=== PATIENT | female | born 1960 | race African-American/Black ===

== ENCOUNTER 2018-01-08 17:31 | Inpatient (IN) | payer OTHER ==
[2018-01-08] MEDS ORDERED: ALBUTEROL SO4 2.5/IPRATROPIUM 0.5 INH SOL 3 ML VIAL.NEB. NEB ONE ×2 (18:18→18:45)
--- NOTE | 2018-01-08 18:20 | PDOC ---
History of Present Illness <Rebecca Duarte - Last Filed: 01/08/18 19:55> - General History Source: Patient Exam Limitations: No Limitations - History of Present Illness Initial Comments: 01/08/18 18:49 The patient is a 57 year old female with past medical history of HIV, hypertension, asthma, COPD (on O2 at home), laryngeal cancer s/p tracheostomy who arrives to the ED via ambulance from home for difficulty breathing and hypoxia since this morning. She states that she is supposed to be using her trach tube at home but states she takes it in and out daily. She denies any associated chest pain, palpitations, diaphoresis. Denies any cough, fevers, or chills. Allergies: Penicillins, levofloxacin, latex Surgeries: Thyroidectomy, laparoscopy PCP: [facility] <Alma Rosa Augustine - Last Filed: 01/08/18 20:26> - General Chief Complaint: Shortness of Breath Stated Complaint: SHORTNESS OF BREATH Time Seen by Provider: 01/08/18 17:48 Past History - Past Medical History Anemia: No Asthma: No Cancer: Yes (throat w/tracheostomy) Cardiac Disorders: No CVA: No COPD: Yes CHF: No DVT: No Dementia: No Diabetes: No GI Disorders: No Disorders: No HTN: Yes Hypercholesterolemia: No Liver Disease: No Seizures: No Thyroid Disease: No - Surgical History Abdominal Surgery: No Appendectomy: No Cardiac Surgery: No Cholecystectomy: No Lung Surgery: No Neurologic Surgery: No Orthopedic Surgery: No (Larygotomy) - Suicide/Smoking/Psychosocial Hx Smoking Status: No Smoking History: Former smoker Have you smoked in the past 12 months: No Number of Cigarettes Smoked Daily: 0 If you are a former smoker, when did you quit?: 2006 Cigars Per Day: 0 Information on smoking cessation initiated: No Hx Alcohol Use: No Drug/Substance Use Hx: No Substance Use Type: None Hx Substance Use Treatment: No (stable on mmtp) <Rebecca Duarte - Last Filed: 01/08/18 19:55> <Alma Rosa Augustine - Last Filed: 01/08/18 20:26> - Past Medical History Allergies/Adverse Reactions: Allergies Allergy/AdvReac Type Severity Reaction Status Date / Time latex Allergy Verified 01/08/18 17:40 levofloxacin [From Levaquin] Allergy Verified 01/08/18 17:40 Penicillins Allergy Verified 01/08/18 17:40 Home Medications: Ambulatory Orders Abacavir/Dolutegravir/Lamivudi [Triumeq Tablet] 1 each PO DAILY 01/08/18 Alprazolam [Xanax] 0.25 mg PO DAILY 01/08/18 Amlodipine Besylate [Norvasc -] 5 mg PO DAILY 01/08/18 Metoprolol Succinate [Toprol Xl] 25 mg PO DAILY 01/08/18 Mirtazapine [Remeron -] 30 mg PO DAILY 01/08/18 Quetiapine Fumarate [Seroquel -] 25 mg PO HS 01/08/18 Zolpidem Tartrate [Ambien] 5 mg PO HS 01/08/18 Respiratory Specific PMHX - Complaint Specific PMHX Pneumonia: No TB (Tuberculosis): No <Rebecca Duarte - Last Filed: 01/08/18 19:55> Review of Systems - Review of Systems Able to Perform ROS?: Yes Comments:: 01/08/18 18:49 CONSTITUTIONAL: Absent: fever, chills, diaphoresis, generalized weakness, malaise, loss of appetite HEENT: Absent: rhinorrhea, nasal congestion, throat pain, throat swelling, difficulty swallowing, mouth swelling, ear pain, eye pain, visual Changes CARDIOVASCULAR: Absent: chest pain, syncope, palpitations, irregular heart rate, lightheadedness , peripheral edema RESPIRATORY: (+) shortness of breath Absent: cough, dyspnea with exertion, orthopnea, wheezing, stridor, hemoptysis GASTROINTESTINAL: Absent: abdominal pain, abdominal distension, nausea, vomiting, diarrhea, constipation, melena, hematochezia GENITOURINARY: Absent: dysuria, frequency, urgency, hesitancy, hematuria, flank pain, genital pain MUSCULOSKELETAL: Absent: myalgia, arthralgia, joint swelling SKIN: Absent: rash, itching, pallor HEMATOLOGIC/IMMUNOLOGIC: Absent: easy bleeding, easy bruising, lymphadenopathy, frequent infections ENDOCRINE: Absent: unexplained weight gain, unexplained weight loss, heat intolerance, cold intolerance NEUROLOGIC: Absent: headache, focal weakness or paresthesias, dizziness, unsteady gait, seizure, mental status changes, bladder or bowel incontinence PSYCHIATRIC: Absent: anxiety, depression, suicidal or homicidal ideation, hallucinations. All Other Systems: Reviewed and Negative <Alma Rosa Augustine - Last Filed: 01/08/18 20:26> *Physical Exam - Vital Signs Last Vital Signs Temp Pulse Resp BP Pulse Ox 100.3 F H 99 H 24 149/92 60 L 01/08/18 17:35 01/08/18 17:35 01/08/18 17:35 01/08/18 17:35 01/08/18 17:35 <Rebecca Duarte - Last Filed: 01/08/18 19:55> - Vital Signs Last Vital Signs Temp Pulse Resp BP Pulse Ox 100.3 F H 99 H 24 149/92 60 L 01/08/18 17:35 01/08/18 17:35 01/08/18 17:35 01/08/18 17:35 01/08/18 17:35 - Physical Exam Comments: 01/08/18 18:50 GENERAL: Well developed, well nourished. Awake and alert. No acute distress. Mouths her words and whispers HEENT: Normocephalic, atraumatic. PERRLA, EOMI. No conjunctival pallor. Sclera are non- icteric. Moist mucous membranes. Oropharynx is clear. NECK: Open tracheostomy without tube in place. Supple. Full ROM. No JVD. Carotid pulses 2+ and symmetric, without bruits. No thyromegaly. No lymphadenopathy. CARDIOVASCULAR: Regular rate and rhythm. No murmurs, rubs, or gallops. Distal pulses are 2+ and symmetric. PULMONARY: No evidence of respiratory distress. Bibasilar crackles and scant wheezing ABDOMINAL: Soft. Non-tender. Protuberant belly. No rebound or guarding. No organomegaly. Normoactive bowel sounds. MUSCULOSKELETAL Normal range of motion at all joints. No bony deformities or tenderness. No CVA tenderness. EXTREMITIES: Chronic bilateral pitting edema left greater than right. No cyanosis. No clubbing. No edema. No calf tenderness. SKIN: Warm and dry. Normal capillary refill. No rashes. No jaundice. NEUROLOGICAL: Alert, awake, appropriate. Cranial nerves 2-12 intact. No deficits to light touch and temperature in face, upper extremities and lower extremities. No motor deficits in the in face, upper extremities and lower extremities. Normoreflexic in the upper and lower extremities. Normal speech. Toes are down-going bilaterally. Gait is normal without ataxia. PSYCHIATRIC: Cooperative. Good eye contact. Appropriate mood and affect. <Alma Rosa Augustine - Last Filed: 01/08/18 20:26> ED Treatment Course - LABORATORY CBC & Chemistry Diagram: 01/08/18 18:20 01/08/18 18:20 - RADIOLOGY Radiology Studies Ordered: Category Date Time Status CHEST X-RAY PORTABLE* [RAD] Stat Radiology 01/08/18 18:19 Ordered <Rebecca Duarte - Last Filed: 01/08/18 19:55> - LABORATORY CBC & Chemistry Diagram: 01/08/18 18:20 01/08/18 18:20 <Alma Rosa Augustine - Last Filed: 01/08/18 20:26> Medical Decision Making - Medical Decision Making 01/08/18 19:52 [address] to Dr. Samuels, and call was connected immediately and case discussed. 01/08/18 19:58 Phone call placed to Dr. Negro, awaiting call back. 01/08/18 20:26 Phone call placed to Dr. Mathur, call was returned promptly and case was discussed. <Alma Rosa Augustine - Last Filed: 01/08/18 20:26> *DC/Admit/Observation/Transfer - Discharge Dispostion Decision to Admit order: Yes <Rebecca Duarte - Last Filed: 01/08/18 19:55> - Attestations Scribe Attestion: 01/08/18 18:51 Documentation prepared by Alma Rosa Augustine, acting as medical front desk coordinator for Rebecca Duarte MD. <Alma Rosa Augustine - Last Filed: 01/08/18 20:26> Diagnosis at time of Disposition: HIV (human immunodeficiency virus infection), Lower leg edema, COPD exacerbation
[2018-01-08 18:53] LABS: VENOUS PH 7.27 (7.32-7.42); VENOUS PO2 26.7 mmHg (28-48)
[2018-01-08 18:59] LABS: BASO % 0.5 % (0-2.0); EOS % 0.1 % (0-4.5); HEMOGLOBIN 12.5 GM/dL (10.7-15.3); LYMPH % 11.1 % (8-40); MCH 30.5 pg (25.7-33.7); MCHC 31.4 g/dl (32.0-36.0); MEAN CELL VOLUME 97.3 fl (80-96); MEAN PLT VOLUME 8.2 fl (7.5-11.1); MONO % 4.7 % (3.8-10.2); NEUT % 83.6 % (42.8-82.8); PLATELET COUNT 233 K/MM3 (134-434); RBC 4.11 M/mm3 (3.60-5.2); RDW 15.9 % (11.6-15.6); WHITE BLOOD COUNT 9.7 K/mm3 (4.0-10.0)
[2018-01-08 19:10] LABS: INR 1.08 (0.82-1.09); PROTHROMBIN TIME (PATIENT) 12.2 SEC (9.7-13.0)
[2018-01-08 19:13] LABS: ACTIVATED PTT 27.6 SECONDS (26.9-34.4)
[2018-01-08 19:20] LABS: ALBUMIN 3.4 g/dl (3.4-5.0); ALK PHOS 118 U/L (45-117); ANION GAP 4 (8-16); BILIRUBIN,TOTAL 0.3 mg/dL (0.2-1.0); BLOOD UREA NITROGEN 8 mg/dL (7-18); CALCIUM 8.8 mg/dL (8.5-10.1); CHLORIDE 98 mmol/L (98-107); CO2 37 mmol/L (21-32); CREATININE 1.1 mg/dL (0.55-1.02); GLUCOSE,RANDOM 91 mg/dL (74-106); POTASSIUM 4.8 mmol/L (3.5-5.1); SGOT/AST 17 U/L (15-37); SGPT/ALT 11 U/L (12-78); SODIUM 139 mmol/L (136-145); TOT PROT 8.2 g/dl (6.4-8.2)
[2018-01-08] MEDS ORDERED: DEXAMETHASONE SOD PHOSPHATE 20 MG/5 ML VIAL IVPB ONE (19:32)
[2018-01-08 19:34] LABS: ARTERIAL BLD GAS O2 SATURATION 94.1 % (90-98.9); ARTERIAL BLOOD GAS BASE EXCESS 6.6 meq/l (-2-2); ARTERIAL BLOOD GAS PCO2 69.2 mmHg (35-45); ARTERIAL BLOOD GAS PO2 74.2 mmHg (80-100)
[2018-01-08 19:36] LABS: ALLENS TEST POSITIVE
[2018-01-08 19:37] LABS: ARTERIAL BLOOD GAS pH 7.32 (7.35-7.45)
[2018-01-08] MEDS ORDERED: DEXAMETHASONE SOD PHOSPHATE 10 MG/1 ML VIAL ONE (19:43)
--- NOTE | 2018-01-08 21:13 | HP ---
Admitting History and Physical - Primary Care Physician PCP: Christophe Samuels - Admission History of Present Illness: 57 year old female with past medical history of HIV, hypertension, asthma, COPD (on O2 at home), laryngeal cancer s/p tracheostomy who arrives to the ED via ambulance from home for difficulty breathing and hypoxia since this morning. She states that she is supposed to be using her trach tube at home but states she takes it in and out daily. She denies any associated chest pain, palpitations, diaphoresis. Denies any cough, fevers, or chills. Allergies: Penicillins, levofloxacin, latex Surgeries: Thyroidectomy, laparoscopy PCP: [facility] - Past Medical History Cardiovascular: Yes: HTN Pulmonary: Yes: Asthma, COPD Infectious Disease: Yes: HIV - Smoking History Smoking history: Former smoker Have you smoked in the past 12 months: No Aproximately how many cigarettes per day: 0 If you are a former smoker, when did you quit?: 2005 - Alcohol/Substance Use Hx Alcohol Use: No Home Medications - Allergies Allergies/Adverse Reactions: Allergies Allergy/AdvReac Type Severity Reaction Status Date / Time latex Allergy Verified 01/08/18 17:40 levofloxacin [From Levaquin] Allergy Verified 01/08/18 17:40 Penicillins Allergy Verified 01/08/18 17:40 - Home Medications Home Medications: Ambulatory Orders Abacavir/Dolutegravir/Lamivudi [Triumeq Tablet] 1 each PO DAILY 01/08/18 Alprazolam [Xanax] 0.25 mg PO DAILY 01/08/18 Amlodipine Besylate [Norvasc -] 5 mg PO DAILY 01/08/18 Metoprolol Succinate [Toprol Xl] 25 mg PO DAILY 01/08/18 Mirtazapine [Remeron -] 30 mg PO DAILY 01/08/18 Quetiapine Fumarate [Seroquel -] 25 mg PO HS 01/08/18 Zolpidem Tartrate [Ambien] 5 mg PO HS 01/08/18 Levothyroxine [Synthroid -] 112 mcg PO DAILY 01/09/18 Methadone [Dolophine -] 80 mg PO DAILY 01/09/18 Furosemide [Lasix] 20 mg PO DAILY #30 tablet 01/10/18 Family Disease History - Family Disease History Family Disease History: CA: Sister (breast ca), Respiratory: Daughter (asthma - d.), Other: Mother (Alzheimers) Physical Examination Vital Signs: Vital Signs Temperature 100.3 F H 01/08/18 17:35 Pulse Rate 99 H 01/08/18 17:35 Respiratory Rate 24 01/08/18 17:35 Blood Pressure 149/92 01/08/18 17:35 O2 Sat by Pulse Oximetry (%) 97 01/08/18 19:01 HENT: Yes: WNL Neck: Yes: Other (trach) Cardiovascular: Yes: Regular Rate and Rhythm Respiratory: Yes: Rhonchi Gastrointestinal: Yes: Normal Bowel Sounds Extremities: Yes: WNL Neurological: Yes: Alert, Oriented Labs: CBC, BMP 01/08/18 18:20 01/08/18 18:20 Problem List - Problems (1) COPD exacerbation Assessment/Plan: on duo nebs oxygen continue home meds trach collar in place Code(s): J44.1 - CHRONIC OBSTRUCTIVE PULMONARY DISEASE W (ACUTE) EXACERBATION (2) HIV (human immunodeficiency virus infection) Assessment/Plan: continue home meds Code(s): Z21 - ASYMPTOMATIC HUMAN IMMUNODEFICIENCY VIRUS INFECTION STATUS (3) Hypertension Assessment/Plan: continue homemeds monitor bp Code(s): I10 - ESSENTIAL (PRIMARY) HYPERTENSION Qualifiers: Hypertension type: essential hypertension Qualified Code(s): I10 - Essential (primary) hypertension (4) Hypothyroidism Assessment/Plan: continue home meds Code(s): E03.9 - HYPOTHYROIDISM, UNSPECIFIED Qualifiers: Hypothyroidism type: unspecified Qualified Code(s): E03.9 - Hypothyroidism , unspecified Assessment/Plan Laboratory Results - last 24 hr 01/08/18 01/08/18 01/08/18 18:19 18:20 18:20 WBC 9.7 D RBC 4.11 Hgb 12.5 Hct 40.0 MCV 97.3 H MCH 30.5 MCHC 31.4 L RDW 15.9 H Plt Count 233 MPV 8.2 D Neutrophils % 83.6 H D Lymphocytes % 11.1 D Monocytes % 4.7 Eosinophils % 0.1 D Basophils % 0.5 Nucleated RBC % 0 PT with INR INR PTT (Actin FS) Puncture Site Right brachial ABG pH 7.32 L ABG pCO2 at Pt Temp 69.2 H* D ABG pO2 at Pt Temp 74.2 L ABG HCO3 34.4 H ABG O2 Sat (Measured) 94.1 ABG O2 Content 15.7 ABG Base Excess 6.6 H Kenrick Test Positive VBG pH POC VBG pCO2 POC VBG pO2 Mixed VBG HCO3 Methemoglobin 1.1 O2 Delivery Device Nebulizer tx Oxygen Flow Rate 6 lpm PEEP 0.0 Sodium 139 Potassium 4.8 Chloride 98 Carbon Dioxide 37 H Anion Gap 4 L BUN 8 Creatinine 1.1 H Creat Clearance w eGFR 51.38 Random Glucose 91 Calcium 8.8 Total Bilirubin 0.3 D AST 17 ALT 11 L Alkaline Phosphatase 118 H Troponin I Total Protein 8.2 Albumin 3.4 01/08/18 01/08/18 01/08/18 18:20 18:20 18:20 WBC RBC Hgb Hct MCV MCH MCHC RDW Plt Count MPV Neutrophils % Lymphocytes % Monocytes % Eosinophils % Basophils % Nucleated RBC % PT with INR 12.20 INR 1.08 PTT (Actin FS) 27.6 Puncture Site ABG pH ABG pCO2 at Pt Temp ABG pO2 at Pt Temp ABG HCO3 ABG O2 Sat (Measured) ABG O2 Content ABG Base Excess Kenrick Test VBG pH 7.27 L POC VBG pCO2 83.0 H* POC VBG pO2 26.7 L Mixed VBG HCO3 36.7 H Methemoglobin O2 Delivery Device Oxygen Flow Rate PEEP Sodium Potassium Chloride Carbon Dioxide Anion Gap BUN Creatinine Creat Clearance w eGFR Random Glucose Calcium Total Bilirubin AST ALT Alkaline Phosphatase Troponin I < 0.02 Total Protein Albumin Active Medications Generic Name Dose Route Start Last Admin Trade Name Freq PRN Reason Stop Dose Admin Albuterol Sulfate 1 amp 01/09/18 14:27 01/10/18 20:27 Ventolin 0.083% Nebulizer Soln - NEB 1 amp Q4H PRN Administration SHORT OF BREATH/WHEEZING Alprazolam 0.25 mg 01/12/18 10:30 01/15/18 09:20 Xanax - PO 0.25 mg DAILY LOI Administration Levothyroxine Sodium 112 mcg 01/15/18 20:30 Synthroid - PO DAILY LOI Methadone HCl 80 mg 01/09/18 09:30 01/15/18 05:34 Dolophine - PO 80 mg DAILY@0600 LOI Administration Metoprolol Succinate 25 mg 01/09/18 10:00 01/15/18 09:20 Toprol Xl - PO Not Given DAILY LOI Mirtazapine 30 mg 01/09/18 22:00 01/14/18 21:42 Remeron - PO 30 mg HS LOI Administration Abacavir 600mg/ 1 each 01/09/18 10:00 01/15/18 09:20 Dolutegravir 50mg/ PO 1 each Lamivudine 300mg [ DAILY LOI Administration Triumeq Tablet] Quetiapine Fumarate 25 mg 01/08/18 22:00 01/14/18 21:42 Seroquel - PO 25 mg HS LOI Administration
[2018-01-08 21:48] LABS: URINE APPEARANCE CLEAR; URINE BILIRUBIN NEGATIVE (<2.0 mg/dL); URINE BLOOD NEGATIVE (NEGATIVE); URINE COLOR YELLOW; URINE GLUCOSE (UA) NEGATIVE (NEGATIVE); URINE KETONE NEGATIVE (NEGATIVE); URINE LEUK ESTERASE NEGATIVE (NEGATIVE); URINE NITRITE NEGATIVE (NEGATIVE); URINE PROTEIN NEGATIVE (NEGATIVE); URINE UROBILINOGEN NORMAL mg/dL (0.2-1.0)
[2018-01-08 22:27] LABS: ARTERIAL BLOOD GAS BASE EXCESS 7.6 meq/l (-2-2); ARTERIAL BLOOD GAS pH 7.34 (7.35-7.45)
[2018-01-08 22:29] LABS: ARTERIAL BLOOD GAS PO2 24.7 mmHg (80-100)
[2018-01-08 22:30] LABS: ARTERIAL BLD GAS O2 SATURATION 37.9 % (90-98.9)
[2018-01-08] MEDS ORDERED: QUEtiapine FUMARATE 25 MG TABLET (FP) ONE (22:43)
[2018-01-08] MEDS ORDERED: HEPARIN NA (PORCINE) 5,000 UNITS/ML 1ML VIAL ONE (22:43)
[2018-01-08] MEDS ORDERED: MIRTAZAPINE 15 MG TABLET (FP) ONE (22:43)
[2018-01-08] MEDS ORDERED: ZOLPIDEM TARTRATE 5 MG TABLET ONE (22:47)
[2018-01-08] MEDS: QUEtiapine FUMARATE 25 MG TABLET (FP) PO SCH (22:53)
[2018-01-08] MEDS: ZOLPIDEM TARTRATE 5 MG TABLET PO PRN (22:53)
[2018-01-08] MEDS: HEPARIN NA (PORCINE) 5,000 UNITS/ML 1ML VIAL SQ SCH (22:53)
[2018-01-08 23:58] LABS: ARTERIAL BLD GAS O2 SATURATION 84.5 % (90-98.9); ARTERIAL BLOOD GAS PO2 52.7 mmHg (80-100); ARTERIAL BLOOD GAS pH 7.34 (7.35-7.45)
[2018-01-08 23:59] LABS: ALLENS TEST POSITIVE; ARTERIAL BLOOD GAS PCO2 63.9 mmHg (35-45)
[2018-01-09] MEDS: amLODIPine BESYLATE 5 MG TABLET (FP) PO SCH (06:19)
[2018-01-09] MEDS: METHADONE HCL 40 MG DISPERSABLE TABLET PO SCH (09:37)
[2018-01-09] MEDS: ALPRAZolam 0.25 MG TABLET PO SCH (09:38)
[2018-01-09] MEDS: [UNRECOGNIZED DRUG - OTHER] PO SCH (09:38)
[2018-01-09] MEDS: HEPARIN NA (PORCINE) 5,000 UNITS/ML 1ML VIAL SQ SCH ×2 (09:38→21:28)
[2018-01-09] MEDS: metoPROLOL SUCCINATE 25 MG TAB.SR.24H (FP) PO SCH (09:38)
[2018-01-09] MEDS: ABACAVIR PO SCH (09:38)
--- NOTE | 2018-01-09 12:36 | CON.ID ---
Consult Consult Specialty:: infectious disesases Reason for Consultation:: sob,r/o pna - History of Present Illness Chief Complaint: sob,unable to breath History of Present Illness: 57 year old female with past medical history of HIV, hypertension, asthma, COPD (on O2 at home), laryngeal cancer s/p tracheostomy admitted because of difficulty breathing and hypoxia since yesterday morning. She states that she is supposed to be using her trach tube at home but states she takes it in and out daily. She denies any associated chest pain, palpitations, diaphoresis. Denies any cough, fevers, or chills. according the her patient suddenly started with difficulty in breathing and was not able to breathe at all she denies any cough production or fever or chills currently patient is feeling better still not completely well. - History Source History Provided By: Patient Limitations to Obtaining History: No Limitations - Past Medical History Cardio/Vascular: Yes: HTN Pulmonary: Yes: Asthma, COPD ...: No Infectious Disease: Yes: HIV - Alcohol/Substance Use Hx Alcohol Use: No - Smoking History Smoking history: Former smoker Have you smoked in the past 12 months: No Aproximately how many cigarettes per day: 0 If you are a former smoker, when did you quit?: 2005 Home Medications - Allergies Allergies/Adverse Reactions: Allergies Allergy/AdvReac Type Severity Reaction Status Date / Time latex Allergy Verified 01/08/18 17:40 levofloxacin [From Levaquin] Allergy Verified 01/08/18 17:40 Penicillins Allergy Verified 01/08/18 17:40 - Home Medications Home Medications: Ambulatory Orders Abacavir/Dolutegravir/Lamivudi [Triumeq Tablet] 1 each PO DAILY 01/08/18 Alprazolam [Xanax] 0.25 mg PO DAILY 01/08/18 Amlodipine Besylate [Norvasc -] 5 mg PO DAILY 01/08/18 Metoprolol Succinate [Toprol Xl] 25 mg PO DAILY 01/08/18 Mirtazapine [Remeron -] 30 mg PO DAILY 01/08/18 Quetiapine Fumarate [Seroquel -] 25 mg PO HS 01/08/18 Zolpidem Tartrate [Ambien] 5 mg PO HS 01/08/18 Levothyroxine [Synthroid -] 112 mcg PO DAILY 01/09/18 Methadone [Dolophine -] 80 mg PO DAILY 01/09/18 Family Disease History - Family Disease History Family Disease History: CA: Sister (breast ca), Respiratory: Daughter (asthma - d.), Other: Mother (Alzheimers) Review of Systems - Review of Systems Constitutional: reports: No Symptoms Eyes: reports: No Symptoms HENT: reports: No Symptoms Neck: reports: No Symptoms Cardiovascular: reports: No Symptoms Respiratory: reports: SOB, SOB on Exertion Gastrointestinal: reports: No Symptoms Genitourinary: reports: No Symptoms Musculoskeletal: reports: No Symptoms Integumentary: reports: No Symptoms Neurological: reports: No Symptoms Endocrine: reports: No Symptoms Hematology/Lymphatic: reports: No Symptoms Psychiatric: reports: No Symptoms Physical Exam Vital Signs: Vital Signs Temperature 98.9 F 01/09/18 05:37 Pulse Rate 91 H 01/09/18 10:45 Respiratory Rate 20 01/09/18 05:37 Blood Pressure 150/90 01/09/18 05:53 O2 Sat by Pulse Oximetry (%) 97 01/09/18 10:45 Constitutional: Yes: No Distress, Calm HENT: Yes: Atraumatic, Other (trachestomy site) Neck: Yes: Supple, Other (trachestomy site) Cardiovascular: Yes: Regular Rate and Rhythm Respiratory: Yes: Regular, CTA Bilaterally, Other Gastrointestinal: Yes: Normal Bowel Sounds, Soft Musculoskeletal: Yes: WNL Extremities: Yes: WNL Edema: LLE: 1+, RLE: 1+ Neurological: Yes: Alert, Oriented Psychiatric: Yes: Alert, Oriented Labs: CBC, BMP 01/08/18 18:20 01/08/18 18:20 Imaging - Results Chest X-ray: Report Reviewed, Image Reviewed Assessment/Plan this patient with trachestomy tube in place coming to the hospital for sudden sob current stable and doing better denies any fever or cough sob hiv tracheostomy COPD exacerbation Code(s): J44.1 - CHRONIC OBSTRUCTIVE PULMONARY DISEASE W (ACUTE) EXACERBATION HIV (human immunodeficiency virus infection) Code(s): Z21 - ASYMPTOMATIC HUMAN IMMUNODEFICIENCY VIRUS INFECTION STATUS plan will hold of starting abx at this time continue monitoring incentive shima await for all cx report rest as per the team
[2018-01-09] MEDS ORDERED: FUROSEMIDE 40 MG/4 ML INJECTABLE VIAL IVPUSH ONE (12:45)
--- NOTE | 2018-01-09 13:36 | EKG ---
Test Reason : Blood Pressure : / mmHG Vent. Rate : 096 BPM Atrial Rate : 096 BPM P-R Int : 144 ms QRS Dur : 082 ms QT Int : 356 ms P-R-T Axes : 069 -04 058 degrees QTc Int : 449 ms SINUS RHYTHM WITH OCCASIONAL PREMATURE VENTRICULAR COMPLEXES BIATRIAL ENLARGEMENT ABNORMAL ECG WHEN COMPARED WITH ECG OF 30-AUG-2017 09:45, PREMATURE VENTRICULAR COMPLEXES ARE NOW PRESENT Confirmed by MD Caitlin, Tevin ([id number]) on 01/09/2018 1:36:23 PM Referred By: Confirmed By:Tevin Tucker MD
--- NOTE | 2018-01-09 13:54 | CON.PULM ---
Consult Consult Specialty:: PUL/CCM Referred by:: MIN Reason for Consultation:: SOB - History of Present Illness Chief Complaint: SOB History of Present Illness: 57 F, HIV, hypertension, asthma, COPD (on O2 at home), laryngeal cancer (S/P RT & Chmo in 2006) S/P tracheostomy (patient apparently takes the Trach out when she is at home). Admitted via the ER due to SOB and hypoxia for 1 to 2 days duration. No travel history or sick contacts. No hemoptysis or night sweats. No fever or chills. CXR: Bilateral pleural effusions and vascular congestion - History Source History Provided By: Patient Limitations to Obtaining History: No Limitations - Past Medical History Cardio/Vascular: Yes: HTN Pulmonary: Yes: Asthma, COPD ...: No Infectious Disease: Yes: HIV - Alcohol/Substance Use Hx Alcohol Use: No - Smoking History Smoking history: Former smoker Have you smoked in the past 12 months: No Aproximately how many cigarettes per day: 0 If you are a former smoker, when did you quit?: 2005 Home Medications - Allergies Allergies/Adverse Reactions: Allergies Allergy/AdvReac Type Severity Reaction Status Date / Time latex Allergy Verified 01/08/18 17:40 levofloxacin [From Levaquin] Allergy Verified 01/08/18 17:40 Penicillins Allergy Verified 01/08/18 17:40 - Home Medications Home Medications: Ambulatory Orders Abacavir/Dolutegravir/Lamivudi [Triumeq Tablet] 1 each PO DAILY 01/08/18 Alprazolam [Xanax] 0.25 mg PO DAILY 01/08/18 Amlodipine Besylate [Norvasc -] 5 mg PO DAILY 01/08/18 Metoprolol Succinate [Toprol Xl] 25 mg PO DAILY 01/08/18 Mirtazapine [Remeron -] 30 mg PO DAILY 01/08/18 Quetiapine Fumarate [Seroquel -] 25 mg PO HS 01/08/18 Zolpidem Tartrate [Ambien] 5 mg PO HS 01/08/18 Levothyroxine [Synthroid -] 112 mcg PO DAILY 01/09/18 Methadone [Dolophine -] 80 mg PO DAILY 01/09/18 Family Disease History - Family Disease History Family Disease History: CA: Sister (breast ca), Respiratory: Daughter (asthma - d.), Other: Mother (Alzheimers) Review of Systems - Review of Systems Constitutional: reports: Malaise, Weakness. denies: Chills, Fever, Night Sweats Eyes: reports: No Symptoms HENT: reports: Other (Trach) Neck: reports: No Symptoms Cardiovascular: reports: Edema, Shortness of Breath. denies: Chest Pain, Palpitations Respiratory: reports: Cough, Orthopnea, SOB, SOB on Exertion. denies: Hemoptysis, Snoring, Wheezing Gastrointestinal: reports: No Symptoms Genitourinary: reports: No Symptoms Breasts: reports: No Symptoms Reported Musculoskeletal: reports: No Symptoms Integumentary: reports: No Symptoms Neurological: reports: No Symptoms Endocrine: reports: No Symptoms Hematology/Lymphatic: reports: No Symptoms Psychiatric: reports: No Symptoms Physical Exam Vital Sings: Vital Signs Temperature 97.6 F 01/09/18 13:30 Pulse Rate 79 01/09/18 13:30 Respiratory Rate 20 01/09/18 13:30 Blood Pressure 118/80 01/09/18 13:30 O2 Sat by Pulse Oximetry (%) 97 01/09/18 10:45 Constitutional: Yes: No Distress Eyes: Yes: Conjunctiva Clear, EOM Intact HENT: Yes: Atraumatic, Normocephalic, Other (Tracheal stoma intact w/o exudate ) Neck: Yes: Other (Tracheal stoma ) Cardiovascular: Yes: Regular Rate and Rhythm Respiratory: Yes: Cough, Diminished, Rales, Rhonchi, Other (On Trach collar 50% ). No: Accessory Muscle Use, Stridor, Tachypnea, Wheezes ...Inspection: Yes: WNL ...Clubbing: No Gastrointestinal: Yes: Normal Bowel Sounds, Soft, Abdomen, Obese Musculoskeletal: Yes: WNL Extremities: Yes: WNL Edema: Yes Peripheral Pulses WNL: No Integumentary: Yes: WNL Neurological: Yes: Alert, Oriented ...Motor Strength: WNL Psychiatric: Yes: WNL, Alert, Oriented Labs: CBC, BMP 01/08/18 18:20 01/08/18 18:20 ABG Results ABG pH 7.34 (7.35-7.45) L 01/08/18 23:56 ABG pCO2 at Pt Temp 63.9 mmHg (35-45) H* 01/08/18 23:56 ABG pO2 at Pt Temp 52.7 mmHg (80-100) L D 01/08/18 23:56 ABG HCO3 33.3 meq/L (22-26) H 01/08/18 23:56 ABG O2 Sat (Measured) 84.5 % (90-98.9) L 01/08/18 23:56 ABG O2 Content 14.4 % vol (15-22) L 01/08/18 23:56 ABG Base Excess 6.0 meq/l (-2-2) H 01/08/18 23:56 Imaging - Results Chest X-ray: Report Reviewed, Image Reviewed Problem List - Problems (1) Pleural effusion Code(s): J90 - PLEURAL EFFUSION, NOT ELSEWHERE CLASSIFIED (2) Lower leg edema Code(s): R60.0 - LOCALIZED EDEMA (3) HIV (human immunodeficiency virus infection) Code(s): Z21 - ASYMPTOMATIC HUMAN IMMUNODEFICIENCY VIRUS INFECTION STATUS (4) Asthma Code(s): J45.909 - UNSPECIFIED ASTHMA, UNCOMPLICATED (5) COPD (chronic obstructive pulmonary disease) Code(s): J44.9 - CHRONIC OBSTRUCTIVE PULMONARY DISEASE, UNSPECIFIED (6) Hypertension Code(s): I10 - ESSENTIAL (PRIMARY) HYPERTENSION Assessment/Plan Agree with daily Lasix Would monitor off ABX Trach collar O2 to maintain saturation Patient reports that her daughter will bring in her Trach later today BD TX PRN No smoking Will follow Dr Evans
[2018-01-09] MEDS: ALBUTEROL SO4 0.083% IH SOL 2.5 MG/3 ML VIAL.NEB. NEB PRN ×2 (15:45→20:16)
--- NOTE | 2018-01-09 18:26 | PN ---
Progress Note, Physician History of Present Illness: feeling better - Current Medication List Current Medications: Active Medications Albuterol Sulfate (Ventolin 0.083% Nebulizer Soln -) 1 amp NEB Q4H PRN PRN Reason: SHORT OF BREATH/WHEEZING Last Admin: 01/09/18 15:45 Dose: 1 amp Alprazolam (Xanax -) 0.25 mg PO DAILY [facility] Last Admin: 01/09/18 09:38 Dose: 0.25 mg Amlodipine Besylate (Norvasc -) 5 mg PO DAILY [facility] Last Admin: 01/09/18 06:19 Dose: 5 mg Heparin Sodium (Porcine) (Heparin -) 5,000 unit SQ BID [facility] Last Admin: 01/09/18 09:38 Dose: 5,000 unit Methadone HCl (Dolophine -) 80 mg PO DAILY@0600 [facility] Last Admin: 01/09/18 09:37 Dose: 80 mg Metoprolol Succinate (Toprol Xl -) 25 mg PO DAILY [facility] Last Admin: 01/09/18 09:38 Dose: 25 mg Mirtazapine (Remeron -) 30 mg PO HS [facility] Abacavir 600mg/Dolutegravir 50mg/Lamivudine 300mg [ Triumeq Tablet] 1 each PO DAILY [facility] Last Admin: 01/09/18 09:38 Dose: 1 each Quetiapine Fumarate (Seroquel -) 25 mg PO HS [facility] Last Admin: 01/08/18 22:53 Dose: 25 mg Zolpidem Tartrate (Ambien -) 5 mg PO HS PRN PRN Reason: INSOMNIA Last Admin: 01/08/18 22:53 Dose: 5 mg - Objective Vital Signs: Vital Signs Temperature 98.1 F 01/09/18 17:02 Pulse Rate 80 01/09/18 17:02 Respiratory Rate 20 01/09/18 17:02 Blood Pressure 120/73 01/09/18 17:02 O2 Sat by Pulse Oximetry (%) 97 01/09/18 10:45 Constitutional: Yes: No Distress HENT: Yes: Other (trach) Cardiovascular: Yes: Regular Rate and Rhythm Respiratory: Yes: Rhonchi Gastrointestinal: Yes: Normal Bowel Sounds Extremities: Yes: WNL Neurological: Yes: Alert, Oriented Labs: CBC, BMP 01/08/18 18:20 01/08/18 18:20 INR, PTT INR 1.08 (0.82-1.09) 01/08/18 18:20 Problem List - Problems (1) COPD exacerbation Assessment/Plan: on duo nebs oxygen continue home meds Code(s): J44.1 - CHRONIC OBSTRUCTIVE PULMONARY DISEASE W (ACUTE) EXACERBATION (2) HIV (human immunodeficiency virus infection) Assessment/Plan: continue home meds Code(s): Z21 - ASYMPTOMATIC HUMAN IMMUNODEFICIENCY VIRUS INFECTION STATUS
[2018-01-09] MEDS: QUEtiapine FUMARATE 25 MG TABLET (FP) PO SCH (21:29)
[2018-01-09] MEDS: MIRTAZAPINE 30 MG TABLET (FP) PO SCH (21:29)
[2018-01-09] MEDS: ZOLPIDEM TARTRATE 5 MG TABLET PO PRN (21:36)
[2018-01-10] MEDS: METHADONE HCL 40 MG DISPERSABLE TABLET PO SCH (05:48)
[2018-01-10] MEDS: metoPROLOL SUCCINATE 25 MG TAB.SR.24H (FP) PO SCH (09:11)
[2018-01-10] MEDS: [UNRECOGNIZED DRUG - OTHER] PO SCH (09:11)
[2018-01-10] MEDS: ABACAVIR PO SCH (09:11)
[2018-01-10] MEDS: ALPRAZolam 0.25 MG TABLET PO SCH (09:11)
[2018-01-10] MEDS: amLODIPine BESYLATE 5 MG TABLET (FP) PO SCH (09:11)
[2018-01-10] MEDS: HEPARIN NA (PORCINE) 5,000 UNITS/ML 1ML VIAL SQ SCH ×2 (09:11→21:45)
--- NOTE | 2018-01-10 10:44 | CON.CARD ---
Consult Consult Specialty:: Cardiology Referred by:: Christophe Samuels MD Reason for Consultation:: Dyspnea - History of Present Illness Chief Complaint: Dyspnea History of Present Illness: 57 F, HIV, hypertension, asthma, COPD (on O2 at home), hypothyroidism, methadone dependence, laryngeal cancer (S/P RT & Chmo in 2006) S/P tracheostomy (patient apparently takes the Trach out when she is at home) admitted for SOB and acute on chronic hypercapneic and hypoxemic respiratory failure improving with BD and O2 therapy, she denies hemoptysis or night sweats. No fever or chills. - History Source History Provided By: Patient Limitations to Obtaining History: No Limitations - Past Medical History Cardio/Vascular: Yes: HTN Pulmonary: Yes: Asthma, COPD ...: No Infectious Disease: Yes: HIV - Alcohol/Substance Use Hx Alcohol Use: No - Smoking History Smoking history: Former smoker Have you smoked in the past 12 months: No Aproximately how many cigarettes per day: 0 If you are a former smoker, when did you quit?: 2005 Home Medications - Allergies Allergies/Adverse Reactions: Allergies Allergy/AdvReac Type Severity Reaction Status Date / Time latex Allergy Verified 01/08/18 17:40 levofloxacin [From Levaquin] Allergy Verified 01/08/18 17:40 Penicillins Allergy Verified 01/08/18 17:40 - Home Medications Home Medications: Ambulatory Orders Abacavir/Dolutegravir/Lamivudi [Triumeq Tablet] 1 each PO DAILY 01/08/18 Alprazolam [Xanax] 0.25 mg PO DAILY 01/08/18 Amlodipine Besylate [Norvasc -] 5 mg PO DAILY 01/08/18 Metoprolol Succinate [Toprol Xl] 25 mg PO DAILY 01/08/18 Mirtazapine [Remeron -] 30 mg PO DAILY 01/08/18 Quetiapine Fumarate [Seroquel -] 25 mg PO HS 01/08/18 Zolpidem Tartrate [Ambien] 5 mg PO HS 01/08/18 Levothyroxine [Synthroid -] 112 mcg PO DAILY 01/09/18 Methadone [Dolophine -] 80 mg PO DAILY 01/09/18 Family Disease History - Family Disease History Family Disease History: CA: Sister (breast ca), Respiratory: Daughter (asthma - d.), Other: Mother (Alzheimers) Review of Systems - Review of Systems Respiratory: reports: Cough, SOB, Wheezing Vital Signs: Vital Signs Temperature 98.1 F 01/10/18 09:19 Pulse Rate 68 01/10/18 09:19 Respiratory Rate 20 01/10/18 09:19 Blood Pressure 119/77 01/10/18 09:19 O2 Sat by Pulse Oximetry (%) 98 01/09/18 20:39 Constitutional: Yes: No Distress, Calm Neck: Yes: Supple, Other (Trach colla) Respiratory: Yes: Regular, Diminished, Rhonchi Gastrointestinal: Yes: Normal Bowel Sounds, Soft Cardiovascular: Yes: Regular Rate and Rhythm JVD: No Carotid Bruit: No Heart Sounds: Yes: S1, S2 Edema: No - Other Data Labs, Other Data: CBC, BMP 01/08/18 18:20 01/08/18 18:20 INR, PTT INR 1.08 (0.82-1.09) 01/08/18 18:20 Troponin, BNP 01/10/18 06:00 B-Natriuretic Peptide 208.07 H Troponin, BNP 01/10/18 06:00 B-Natriuretic Peptide 208.07 H SR @ 96 KARO, PVC Ejection Fraction %: LVEF > or = 40 % Imaging - Results Chest X-ray: Report Reviewed (Increased markings) Problem List - Problems (1) Acute on chronic respiratory failure with hypoxia and hypercapnia Code(s): J96.21 - ACUTE AND CHRONIC RESPIRATORY FAILURE WITH HYPOXIA; J96.22 - ACUTE AND CHRONIC RESPIRATORY FAILURE WITH HYPERCAPNIA (2) HIV (human immunodeficiency virus infection) Code(s): Z21 - ASYMPTOMATIC HUMAN IMMUNODEFICIENCY VIRUS INFECTION STATUS (3) Decreased GFR Code(s): R94.4 - ABNORMAL RESULTS OF KIDNEY FUNCTION STUDIES (4) COPD (chronic obstructive pulmonary disease) Code(s): J44.9 - CHRONIC OBSTRUCTIVE PULMONARY DISEASE, UNSPECIFIED Qualifiers: COPD type: unspecified COPD Qualified Code(s): J44.9 - Chronic obstructive pulmonary disease, unspecified (5) Hypertension Code(s): I10 - ESSENTIAL (PRIMARY) HYPERTENSION Qualifiers: Hypertension type: essential hypertension Qualified Code(s): I10 - Essential (primary) hypertension (6) Hypothyroidism Code(s): E03.9 - HYPOTHYROIDISM, UNSPECIFIED Qualifiers: Hypothyroidism type: unspecified Qualified Code(s): E03.9 - Hypothyroidism , unspecified (7) Tracheostomy in place Code(s): Z98.89 - OTHER SPECIFIED POSTPROCEDURAL STATES * DO NOT USE * Assessment/Plan 1. Dyspnea referable to acute on chronic hypoxemic, hypercapneic respiratory failure 2. COPD chronic tracheostomy 3. HIV on HAART 4. HTN/HCVD 5. Hypothyroidism 6. Methadone dependence P:1. BD, monitor off ABX, trach collar O2 to maintain saturation, diuresis as needed 2. F/u echocardiogram results 3. Continue Norvasc 5 qd, Toprol XL 25 qd 4. DVT prophylaxis 5. Thank you for consultative opportunity
--- NOTE | 2018-01-10 12:30 | PN ---
Progress Note, Physician History of Present Illness: stable says breathing is improving - Current Medication List Current Medications: Active Medications Albuterol Sulfate (Ventolin 0.083% Nebulizer Soln -) 1 amp NEB Q4H PRN PRN Reason: SHORT OF BREATH/WHEEZING Last Admin: 01/09/18 20:16 Dose: 1 amp Alprazolam (Xanax -) 0.25 mg PO DAILY [facility] Last Admin: 01/10/18 09:11 Dose: 0.25 mg Amlodipine Besylate (Norvasc -) 5 mg PO DAILY [facility] Last Admin: 01/10/18 09:11 Dose: 5 mg Heparin Sodium (Porcine) (Heparin -) 5,000 unit SQ BID [facility] Last Admin: 01/10/18 09:11 Dose: 5,000 unit Methadone HCl (Dolophine -) 80 mg PO DAILY@0600 [facility] Last Admin: 01/10/18 05:48 Dose: 80 mg Metoprolol Succinate (Toprol Xl -) 25 mg PO DAILY [facility] Last Admin: 01/10/18 09:11 Dose: 25 mg Mirtazapine (Remeron -) 30 mg PO HS [facility] Last Admin: 01/09/18 21:29 Dose: 30 mg Abacavir 600mg/Dolutegravir 50mg/Lamivudine 300mg [ Triumeq Tablet] 1 each PO DAILY [facility] Last Admin: 01/10/18 09:11 Dose: 1 each Quetiapine Fumarate (Seroquel -) 25 mg PO HS [facility] Last Admin: 01/09/18 21:29 Dose: 25 mg Zolpidem Tartrate (Ambien -) 5 mg PO HS PRN PRN Reason: INSOMNIA Last Admin: 01/09/18 21:36 Dose: 5 mg - Objective Vital Signs: Vital Signs Temperature 98.1 F 01/10/18 09:19 Pulse Rate 68 01/10/18 09:19 Respiratory Rate 20 01/10/18 09:19 Blood Pressure 119/77 01/10/18 09:19 O2 Sat by Pulse Oximetry (%) 96 01/10/18 09:00 Constitutional: Yes: No Distress, Calm Cardiovascular: Yes: Regular Rate and Rhythm Respiratory: Yes: Regular, On Venti-Mask, Poor Air Entry (bases) Gastrointestinal: Yes: Soft, Distention Musculoskeletal: Yes: WNL Extremities: Yes: WNL Neurological: Yes: Alert, Oriented Psychiatric: Yes: Alert, Oriented Labs: CBC, BMP 01/08/18 18:20 01/08/18 18:20 INR, PTT INR 1.08 (0.82-1.09) 01/08/18 18:20 Assessment/Plan Problem List - Problems (1) Acute on chronic respiratory failure with hypoxia and hypercapnia Code(s): J96.21 - ACUTE AND CHRONIC RESPIRATORY FAILURE WITH HYPOXIA; J96.22 - ACUTE AND CHRONIC RESPIRATORY FAILURE WITH HYPERCAPNIA (2) HIV (human immunodeficiency virus infection) Code(s): Z21 - ASYMPTOMATIC HUMAN IMMUNODEFICIENCY VIRUS INFECTION STATUS (3) Decreased GFR Code(s): R94.4 - ABNORMAL RESULTS OF KIDNEY FUNCTION STUDIES (4) COPD (chronic obstructive pulmonary disease) Code(s): J44.9 - CHRONIC OBSTRUCTIVE PULMONARY DISEASE, UNSPECIFIED Qualifiers: COPD type: unspecified COPD Qualified Code(s): J44.9 - Chronic obstructive pulmonary disease, unspecified (5) Hypertension Code(s): I10 - ESSENTIAL (PRIMARY) HYPERTENSION Qualifiers: Hypertension type: essential hypertension Qualified Code(s): I10 - Essential (primary) hypertension (6) Hypothyroidism Code(s): E03.9 - HYPOTHYROIDISM, UNSPECIFIED Qualifiers: Hypothyroidism type: unspecified Qualified Code(s): E03.9 - Hypothyroidism , unspecified (7) Tracheostomy in place Code(s): Z98.89 - OTHER SPECIFIED POSTPROCEDURAL STATES * DO NOT USE * plan continue current mgmt cx report noted continue monitoring incentive shima will watch off of abx
[2018-01-10 12:53] VITALS: BMI 34.5
--- NOTE | 2018-01-10 14:02 | PN ---
Progress Note, Physician History of Present Illness: PULMONARY ALERT,COMFORTABLE,-RESP DISTRESS - Current Medication List Current Medications: Active Medications Albuterol Sulfate (Ventolin 0.083% Nebulizer Soln -) 1 amp NEB Q4H PRN PRN Reason: SHORT OF BREATH/WHEEZING Last Admin: 01/09/18 20:16 Dose: 1 amp Alprazolam (Xanax -) 0.25 mg PO DAILY [facility] Last Admin: 01/10/18 09:11 Dose: 0.25 mg Amlodipine Besylate (Norvasc -) 5 mg PO DAILY [facility] Last Admin: 01/10/18 09:11 Dose: 5 mg Heparin Sodium (Porcine) (Heparin -) 5,000 unit SQ BID [facility] Last Admin: 01/10/18 09:11 Dose: 5,000 unit Methadone HCl (Dolophine -) 80 mg PO DAILY@0600 [facility] Last Admin: 01/10/18 05:48 Dose: 80 mg Metoprolol Succinate (Toprol Xl -) 25 mg PO DAILY [facility] Last Admin: 01/10/18 09:11 Dose: 25 mg Mirtazapine (Remeron -) 30 mg PO HS [facility] Last Admin: 01/09/18 21:29 Dose: 30 mg Abacavir 600mg/Dolutegravir 50mg/Lamivudine 300mg [ Triumeq Tablet] 1 each PO DAILY [facility] Last Admin: 01/10/18 09:11 Dose: 1 each Quetiapine Fumarate (Seroquel -) 25 mg PO HS [facility] Last Admin: 01/09/18 21:29 Dose: 25 mg Zolpidem Tartrate (Ambien -) 5 mg PO HS PRN PRN Reason: INSOMNIA Last Admin: 01/09/18 21:36 Dose: 5 mg - Objective Vital Signs: Vital Signs Temperature 98.1 F 01/10/18 09:19 Pulse Rate 68 01/10/18 09:19 Respiratory Rate 20 01/10/18 09:19 Blood Pressure 119/77 01/10/18 09:19 O2 Sat by Pulse Oximetry (%) 96 01/10/18 09:00 Constitutional: Yes: Well Nourished, Calm Eyes: Yes: WNL HENT: Yes: WNL Neck: Yes: Supple Cardiovascular: Yes: Regular Rate and Rhythm, S1, S2 Respiratory: Yes: Rales (SCATTERED SELENE RHONCHI,BIBASIAR CRACKLES) Gastrointestinal: Yes: Normal Bowel Sounds, Soft Extremities: Yes: WNL Edema: No Labs: CBC, BMP 01/08/18 18:20 01/08/18 18:20 INR, PTT INR 1.08 (0.82-1.09) 01/08/18 18:20 Problem List - Problems (1) Acute on chronic respiratory failure with hypoxia and hypercapnia Code(s): J96.21 - ACUTE AND CHRONIC RESPIRATORY FAILURE WITH HYPOXIA; J96.22 - ACUTE AND CHRONIC RESPIRATORY FAILURE WITH HYPERCAPNIA Assessment/Plan Problem List - Problems (1) Pleural effusion Code(s): J90 - PLEURAL EFFUSION, NOT ELSEWHERE CLASSIFIED (2) Lower leg edema Code(s): R60.0 - LOCALIZED EDEMA (3) HIV (human immunodeficiency virus infection) Code(s): Z21 - ASYMPTOMATIC HUMAN IMMUNODEFICIENCY VIRUS INFECTION STATUS (4) Asthma Code(s): J45.909 - UNSPECIFIED ASTHMA, UNCOMPLICATED (5) COPD (chronic obstructive pulmonary disease) Code(s): J44.9 - CHRONIC OBSTRUCTIVE PULMONARY DISEASE, UNSPECIFIED (6) Hypertension Code(s): I10 - ESSENTIAL (PRIMARY) HYPERTENSION Assessment/Plan Lasix Trach collar O2 to maintain saturation BD TX PRN f/u chest x-rays DR FERRO
[2018-01-10] MEDS: FUROSEMIDE 40 MG/4 ML INJECTABLE VIAL IVPUSH SCH (16:14)
--- NOTE | 2018-01-10 18:43 | PN ---
Progress Note, Physician - Current Medication List Current Medications: Active Medications Albuterol Sulfate (Ventolin 0.083% Nebulizer Soln -) 1 amp NEB Q4H PRN PRN Reason: SHORT OF BREATH/WHEEZING Last Admin: 01/09/18 20:16 Dose: 1 amp Alprazolam (Xanax -) 0.25 mg PO DAILY [facility] Last Admin: 01/10/18 09:11 Dose: 0.25 mg Amlodipine Besylate (Norvasc -) 5 mg PO DAILY [facility] Last Admin: 01/10/18 09:11 Dose: 5 mg Furosemide (Lasix Injection -) 20 mg IVPUSH DAILY [facility] Last Admin: 01/10/18 16:14 Dose: 20 mg Heparin Sodium (Porcine) (Heparin -) 5,000 unit SQ BID [facility] Last Admin: 01/10/18 09:11 Dose: 5,000 unit Methadone HCl (Dolophine -) 80 mg PO DAILY@0600 [facility] Last Admin: 01/10/18 05:48 Dose: 80 mg Metoprolol Succinate (Toprol Xl -) 25 mg PO DAILY [facility] Last Admin: 01/10/18 09:11 Dose: 25 mg Mirtazapine (Remeron -) 30 mg PO HS [facility] Last Admin: 01/09/18 21:29 Dose: 30 mg Abacavir 600mg/Dolutegravir 50mg/Lamivudine 300mg [ Triumeq Tablet] 1 each PO DAILY [facility] Last Admin: 01/10/18 09:11 Dose: 1 each Quetiapine Fumarate (Seroquel -) 25 mg PO HS [facility] Last Admin: 01/09/18 21:29 Dose: 25 mg Zolpidem Tartrate (Ambien -) 5 mg PO HS PRN PRN Reason: INSOMNIA Last Admin: 01/09/18 21:36 Dose: 5 mg - Objective Vital Signs: Vital Signs Temperature 97.7 F 01/10/18 17:36 Pulse Rate 61 01/10/18 17:36 Respiratory Rate 20 01/10/18 17:36 Blood Pressure 111/65 01/10/18 17:36 O2 Sat by Pulse Oximetry (%) 96 01/10/18 09:00 Constitutional: Yes: No Distress HENT: Yes: Atraumatic Neck: Yes: Supple Cardiovascular: Yes: WNL Respiratory: Yes: CTA Bilaterally Gastrointestinal: Yes: Normal Bowel Sounds Extremities: Yes: WNL Labs: CBC, BMP 01/08/18 18:20 01/08/18 18:20 INR, PTT INR 1.08 (0.82-1.09) 01/08/18 18:20 Problem List - Problems (1) COPD exacerbation Assessment/Plan: on duo nebs oxygen continue home meds Code(s): J44.1 - CHRONIC OBSTRUCTIVE PULMONARY DISEASE W (ACUTE) EXACERBATION (2) HIV (human immunodeficiency virus infection) Assessment/Plan: continue home meds Code(s): Z21 - ASYMPTOMATIC HUMAN IMMUNODEFICIENCY VIRUS INFECTION STATUS
[2018-01-10] MEDS ORDERED: PT OWN MED DRAWER 7, Y5N ONE ×2 (19:52→21:14)
[2018-01-10] MEDS: ALBUTEROL SO4 0.083% IH SOL 2.5 MG/3 ML VIAL.NEB. NEB PRN (20:27)
[2018-01-10] MEDS: QUEtiapine FUMARATE 25 MG TABLET (FP) PO SCH (21:45)
[2018-01-10] MEDS: MIRTAZAPINE 30 MG TABLET (FP) PO SCH (21:45)
[2018-01-10] MEDS: ZOLPIDEM TARTRATE 5 MG TABLET PO PRN (21:49)
[2018-01-11] MEDS: METHADONE HCL 40 MG DISPERSABLE TABLET PO SCH (06:11)
[2018-01-11] MEDS: ALPRAZolam 0.25 MG TABLET PO SCH (09:34)
--- NOTE | 2018-01-11 09:37 | PN ---
Progress Note, Physician History of Present Illness: SOB and cough improving with BD, diuresis and O2 therapy, she denies hemoptysis or night sweats. No fever or chills. Trach decannulated on RA. - Current Medication List Current Medications: Active Medications Albuterol Sulfate (Ventolin 0.083% Nebulizer Soln -) 1 amp NEB Q4H PRN PRN Reason: SHORT OF BREATH/WHEEZING Last Admin: 01/10/18 20:27 Dose: 1 amp Alprazolam (Xanax -) 0.25 mg PO DAILY [facility] Last Admin: 01/10/18 09:11 Dose: 0.25 mg Amlodipine Besylate (Norvasc -) 5 mg PO DAILY [facility] Last Admin: 01/10/18 09:11 Dose: 5 mg Furosemide (Lasix Injection -) 20 mg IVPUSH DAILY [facility] Last Admin: 01/10/18 16:14 Dose: 20 mg Heparin Sodium (Porcine) (Heparin -) 5,000 unit SQ BID [facility] Last Admin: 01/10/18 21:45 Dose: 5,000 unit Methadone HCl (Dolophine -) 80 mg PO DAILY@0600 [facility] Last Admin: 01/11/18 06:11 Dose: 80 mg Metoprolol Succinate (Toprol Xl -) 25 mg PO DAILY [facility] Last Admin: 01/10/18 09:11 Dose: 25 mg Mirtazapine (Remeron -) 30 mg PO HS [facility] Last Admin: 01/10/18 21:45 Dose: 30 mg Abacavir 600mg/Dolutegravir 50mg/Lamivudine 300mg [ Triumeq Tablet] 1 each PO DAILY [facility] Last Admin: 01/10/18 09:11 Dose: 1 each Quetiapine Fumarate (Seroquel -) 25 mg PO HS [facility] Last Admin: 01/10/18 21:45 Dose: 25 mg Zolpidem Tartrate (Ambien -) 5 mg PO HS PRN PRN Reason: INSOMNIA Last Admin: 01/10/18 21:49 Dose: 5 mg - Objective Vital Signs: Vital Signs Temperature 98.6 F 01/11/18 09:11 Pulse Rate 62 01/11/18 09:11 Respiratory Rate 18 01/11/18 09:11 Blood Pressure 96/63 01/11/18 09:11 O2 Sat by Pulse Oximetry (%) 98 01/10/18 21:00 Constitutional: Yes: No Distress, Calm Neck: Yes: Supple, Other (Trach decannulated) Cardiovascular: Yes: Regular Rate and Rhythm Respiratory: Yes: Regular, Diminished, Rhonchi Gastrointestinal: Yes: Normal Bowel Sounds, Soft Edema: No Labs: CBC, BMP 01/08/18 18:20 01/08/18 18:20 INR, PTT INR 1.08 (0.82-1.09) 01/08/18 18:20 - ....Imaging Chest X-ray: Image Reviewed (Left effusion) Problem List - Problems (1) Acute on chronic respiratory failure with hypoxia and hypercapnia Code(s): J96.21 - ACUTE AND CHRONIC RESPIRATORY FAILURE WITH HYPOXIA; J96.22 - ACUTE AND CHRONIC RESPIRATORY FAILURE WITH HYPERCAPNIA (2) HIV (human immunodeficiency virus infection) Code(s): Z21 - ASYMPTOMATIC HUMAN IMMUNODEFICIENCY VIRUS INFECTION STATUS (3) Decreased GFR Code(s): R94.4 - ABNORMAL RESULTS OF KIDNEY FUNCTION STUDIES (4) COPD (chronic obstructive pulmonary disease) Code(s): J44.9 - CHRONIC OBSTRUCTIVE PULMONARY DISEASE, UNSPECIFIED Qualifiers: COPD type: unspecified COPD Qualified Code(s): J44.9 - Chronic obstructive pulmonary disease, unspecified (5) Hypertension Code(s): I10 - ESSENTIAL (PRIMARY) HYPERTENSION Qualifiers: Hypertension type: essential hypertension Qualified Code(s): I10 - Essential (primary) hypertension (6) Hypothyroidism Code(s): E03.9 - HYPOTHYROIDISM, UNSPECIFIED Qualifiers: Hypothyroidism type: unspecified Qualified Code(s): E03.9 - Hypothyroidism , unspecified (7) Tracheostomy in place Code(s): Z98.89 - OTHER SPECIFIED POSTPROCEDURAL STATES * DO NOT USE * Assessment/Plan 01/10/2018 Echo: Normal LV size and fxn, mild-mod MR, mild TR, mild pericardial effusion 1. Dyspnea referable to acute on chronic hypoxemic, hypercapneic respiratory failure improved 2. COPD chronic tracheostomy 3. HIV on HAART 4. HTN/HCVD 5. Hypothyroidism 6. Methadone dependence P:1. BD, monitor off ABX, trach collar O2 to maintain saturation, oral diuresis as needed, f/u CXR results 2. Continue Norvasc 5 qd, Toprol XL 25 qd 3. DVT prophylaxis
[2018-01-11] MEDS: FUROSEMIDE 40 MG/4 ML INJECTABLE VIAL IVPUSH SCH (09:38)
[2018-01-11] MEDS: amLODIPine BESYLATE 5 MG TABLET (FP) PO SCH (09:39)
[2018-01-11] MEDS: metoPROLOL SUCCINATE 25 MG TAB.SR.24H (FP) PO SCH (09:39)
[2018-01-11] MEDS: HEPARIN NA (PORCINE) 5,000 UNITS/ML 1ML VIAL SQ SCH ×2 (09:39→23:12)
[2018-01-11] MEDS: ABACAVIR PO SCH (09:40)
[2018-01-11] MEDS: [UNRECOGNIZED DRUG - OTHER] PO SCH (09:40)
--- NOTE | 2018-01-11 09:40 | PN ---
Progress Note (short form) - Note Progress Note: Feels a little better. Currently washing herself on RA decannulated. Dry cough. Afebrile. CXR: Rotated / marginal improvement in the right base Intake & Output 01/08/18 01/09/18 01/10/18 01/11/18 23:59 23:59 23:59 23:59 Intake Total 560 510 240 Balance 560 510 240 Weight 188 lb 183 lb 3.2 oz 183 lb Last Vital Signs Temp Pulse Resp BP Pulse Ox 98.6 F 62 18 96/63 98 01/11/18 09:11 01/11/18 09:11 01/11/18 09:11 01/11/18 09:11 01/10/18 21:00 Active Medications Albuterol Sulfate (Ventolin 0.083% Nebulizer Soln -) 1 amp NEB Q4H PRN PRN Reason: SHORT OF BREATH/WHEEZING Last Admin: 01/10/18 20:27 Dose: 1 amp Alprazolam (Xanax -) 0.25 mg PO DAILY [facility] Last Admin: 01/10/18 09:11 Dose: 0.25 mg Amlodipine Besylate (Norvasc -) 5 mg PO DAILY [facility] Last Admin: 01/10/18 09:11 Dose: 5 mg Furosemide (Lasix Injection -) 20 mg IVPUSH DAILY [facility] Last Admin: 01/10/18 16:14 Dose: 20 mg Heparin Sodium (Porcine) (Heparin -) 5,000 unit SQ BID [facility] Last Admin: 01/10/18 21:45 Dose: 5,000 unit Methadone HCl (Dolophine -) 80 mg PO DAILY@0600 [facility] Last Admin: 01/11/18 06:11 Dose: 80 mg Metoprolol Succinate (Toprol Xl -) 25 mg PO DAILY [facility] Last Admin: 01/10/18 09:11 Dose: 25 mg Mirtazapine (Remeron -) 30 mg PO HS [facility] Last Admin: 01/10/18 21:45 Dose: 30 mg Abacavir 600mg/Dolutegravir 50mg/Lamivudine 300mg [ Triumeq Tablet] 1 each PO DAILY [facility] Last Admin: 01/10/18 09:11 Dose: 1 each Quetiapine Fumarate (Seroquel -) 25 mg PO HS [facility] Last Admin: 01/10/18 21:45 Dose: 25 mg Zolpidem Tartrate (Ambien -) 5 mg PO HS PRN PRN Reason: INSOMNIA Last Admin: 01/10/18 21:49 Dose: 5 mg Constitutional: Yes: No Distress Eyes: Yes: Conjunctiva Clear, EOM Intact HENT: Yes: Atraumatic, Normocephalic, Other (Tracheal stoma intact w/o exudate ) Neck: Yes: Other (Tracheal stoma ) Cardiovascular: Yes: Regular Rate and Rhythm Respiratory: Yes: Cough, Diminished, few basilar Rales/Rhonchi. No: Accessory Muscle Use, Stridor, Tachypnea, Wheezes ...Inspection: Yes: WNL ...Clubbing: No Gastrointestinal: Yes: Normal Bowel Sounds, Soft, Abdomen, Obese Musculoskeletal: Yes: WNL Extremities: Yes: WNL Edema: Yes Peripheral Pulses WNL: No Integumentary: Yes: WNL Neurological: Yes: Alert, Oriented ...Motor Strength: WNL Psychiatric: Yes: WNL, Alert, Oriented Labs: Problem List - Problems (1) Pleural effusion Code(s): J90 - PLEURAL EFFUSION, NOT ELSEWHERE CLASSIFIED (2) Lower leg edema Code(s): R60.0 - LOCALIZED EDEMA (3) HIV (human immunodeficiency virus infection) Code(s): Z21 - ASYMPTOMATIC HUMAN IMMUNODEFICIENCY VIRUS INFECTION STATUS (4) Asthma Code(s): J45.909 - UNSPECIFIED ASTHMA, UNCOMPLICATED (5) COPD (chronic obstructive pulmonary disease) Code(s): J44.9 - CHRONIC OBSTRUCTIVE PULMONARY DISEASE, UNSPECIFIED (6) Hypertension Code(s): I10 - ESSENTIAL (PRIMARY) HYPERTENSION Assessment/Plan Patient appears better than on admission: can likely change Lasix to PO Monitor off ABX Trach collar O2 to maintain saturation BD TX PRN No smoking Repeat CXR in 1 week There is no Pulmonary contraindication for D/C planning Dr Evans Problem List - Problems (1) Pleural effusion Code(s): J90 - PLEURAL EFFUSION, NOT ELSEWHERE CLASSIFIED (2) Lower leg edema Code(s): R60.0 - LOCALIZED EDEMA (3) HIV (human immunodeficiency virus infection) Code(s): Z21 - ASYMPTOMATIC HUMAN IMMUNODEFICIENCY VIRUS INFECTION STATUS (4) Asthma Code(s): J45.909 - UNSPECIFIED ASTHMA, UNCOMPLICATED (5) COPD (chronic obstructive pulmonary disease) Code(s): J44.9 - CHRONIC OBSTRUCTIVE PULMONARY DISEASE, UNSPECIFIED Qualifiers: COPD type: unspecified COPD Qualified Code(s): J44.9 - Chronic obstructive pulmonary disease, unspecified (6) Hypertension Code(s): I10 - ESSENTIAL (PRIMARY) HYPERTENSION Qualifiers: Hypertension type: essential hypertension Qualified Code(s): I10 - Essential (primary) hypertension
[2018-01-11] MEDS: FUROSEMIDE 20 MG TABLET (FP) PO SCH (09:56)
[2018-01-11 10:42] LABS: BASO % 0.6 % (0-2.0); EOS % 3.2 % (0-4.5); HEMATOCRIT 39.6 % (32.4-45.2); HEMOGLOBIN 12.3 GM/dL (10.7-15.3); LYMPH % 25.8 % (8-40); MCHC 31.2 g/dl (32.0-36.0); MEAN CELL VOLUME 99.3 fl (80-96); MEAN PLT VOLUME 8.1 fl (7.5-11.1); NEUT % 60.4 % (42.8-82.8); PLATELET COUNT 225 K/MM3 (134-434); RBC 3.99 M/mm3 (3.60-5.2); RDW 16.4 % (11.6-15.6); WHITE BLOOD COUNT 5.4 K/mm3 (4.0-10.0)
[2018-01-11 11:04] LABS: CALCIUM 8.3 mg/dL (8.5-10.1); CHLORIDE 97 mmol/L (98-107); POTASSIUM 3.7 mmol/L (3.5-5.1); SODIUM 142 mmol/L (136-145)
[2018-01-11 11:07] LABS: BLOOD UREA NITROGEN 12 mg/dL (7-18)
[2018-01-11 11:11] LABS: ALK PHOS 100 U/L (45-117); ANION GAP 4 (8-16); BILIRUBIN,TOTAL 0.3 mg/dL (0.2-1.0); CO2 41 mmol/L (21-32); CREATININE 1.3 mg/dL (0.55-1.02); GLUCOSE,RANDOM 90 mg/dL (74-106); SGOT/AST 11 U/L (15-37); SGPT/ALT 13 U/L (12-78)
--- NOTE | 2018-01-11 15:05 | PN ---
Progress Note, Physician History of Present Illness: continues to improve breathing improving trachestomy - Current Medication List Current Medications: Active Medications Albuterol Sulfate (Ventolin 0.083% Nebulizer Soln -) 1 amp NEB Q4H PRN PRN Reason: SHORT OF BREATH/WHEEZING Last Admin: 01/10/18 20:27 Dose: 1 amp Alprazolam (Xanax -) 0.25 mg PO DAILY [facility] Last Admin: 01/11/18 09:34 Dose: 0.25 mg Amlodipine Besylate (Norvasc -) 5 mg PO DAILY [facility] Last Admin: 01/11/18 09:39 Dose: Not Given Furosemide (Lasix -) 20 mg PO DAILY [facility] Last Admin: 01/11/18 09:56 Dose: Not Given Heparin Sodium (Porcine) (Heparin -) 5,000 unit SQ BID [facility] Last Admin: 01/11/18 09:39 Dose: 5,000 unit Methadone HCl (Dolophine -) 80 mg PO DAILY@0600 [facility] Last Admin: 01/11/18 06:11 Dose: 80 mg Metoprolol Succinate (Toprol Xl -) 25 mg PO DAILY [facility] Last Admin: 01/11/18 09:39 Dose: Not Given Mirtazapine (Remeron -) 30 mg PO HS [facility] Last Admin: 01/10/18 21:45 Dose: 30 mg Abacavir 600mg/Dolutegravir 50mg/Lamivudine 300mg [ Triumeq Tablet] 1 each PO DAILY [facility] Last Admin: 01/11/18 09:40 Dose: 1 each Quetiapine Fumarate (Seroquel -) 25 mg PO HS [facility] Last Admin: 01/10/18 21:45 Dose: 25 mg Zolpidem Tartrate (Ambien -) 5 mg PO HS PRN PRN Reason: INSOMNIA Last Admin: 01/10/18 21:49 Dose: 5 mg - Objective Vital Signs: Vital Signs Temperature 98.1 F 01/11/18 14:05 Pulse Rate 67 01/11/18 14:05 Respiratory Rate 20 01/11/18 14:05 Blood Pressure 92/55 01/11/18 14:05 O2 Sat by Pulse Oximetry (%) 99 01/11/18 09:00 Constitutional: Yes: No Distress, Calm Respiratory: Yes: Regular, CTA Bilaterally, Other (tracheostomy) Gastrointestinal: Yes: Normal Bowel Sounds, Soft Musculoskeletal: Yes: WNL Extremities: Yes: WNL Neurological: Yes: Alert, Oriented Psychiatric: Yes: Alert Labs: CBC, BMP 01/11/18 10:06 01/11/18 10:06 INR, PTT INR 1.08 (0.82-1.09) 01/08/18 18:20 Assessment/Plan Problem List - Problems (1) Acute on chronic respiratory failure with hypoxia and hypercapnia Code(s): J96.21 - ACUTE AND CHRONIC RESPIRATORY FAILURE WITH HYPOXIA; J96.22 - ACUTE AND CHRONIC RESPIRATORY FAILURE WITH HYPERCAPNIA (2) HIV (human immunodeficiency virus infection) Code(s): Z21 - ASYMPTOMATIC HUMAN IMMUNODEFICIENCY VIRUS INFECTION STATUS (3) Decreased GFR Code(s): R94.4 - ABNORMAL RESULTS OF KIDNEY FUNCTION STUDIES (4) COPD (chronic obstructive pulmonary disease) Code(s): J44.9 - CHRONIC OBSTRUCTIVE PULMONARY DISEASE, UNSPECIFIED Qualifiers: COPD type: unspecified COPD Qualified Code(s): J44.9 - Chronic obstructive pulmonary disease, unspecified (5) Hypertension Code(s): I10 - ESSENTIAL (PRIMARY) HYPERTENSION Qualifiers: Hypertension type: essential hypertension Qualified Code(s): I10 - Essential (primary) hypertension (6) Hypothyroidism Code(s): E03.9 - HYPOTHYROIDISM, UNSPECIFIED Qualifiers: Hypothyroidism type: unspecified Qualified Code(s): E03.9 - Hypothyroidism , unspecified (7) Tracheostomy in place Code(s): Z98.89 - OTHER SPECIFIED POSTPROCEDURAL STATES * DO NOT USE * plan continue current mgmt cx report noted continue monitoring incentive shima will watch off of abx
[2018-01-11] MEDS: QUEtiapine FUMARATE 25 MG TABLET (FP) PO SCH (23:13)
[2018-01-11] MEDS: MIRTAZAPINE 30 MG TABLET (FP) PO SCH (23:13)
[2018-01-12] MEDS: ZOLPIDEM TARTRATE 5 MG TABLET PO PRN ×2 (00:30→21:48)
[2018-01-12] MEDS: METHADONE HCL 40 MG DISPERSABLE TABLET PO SCH (06:03)
[2018-01-12] MEDS: HEPARIN NA (PORCINE) 5,000 UNITS/ML 1ML VIAL SQ SCH (09:53)
[2018-01-12] MEDS: FUROSEMIDE 20 MG TABLET (FP) PO SCH (09:53)
[2018-01-12] MEDS: amLODIPine BESYLATE 5 MG TABLET (FP) PO SCH (09:54)
[2018-01-12] MEDS: ABACAVIR PO SCH (09:54)
[2018-01-12] MEDS: metoPROLOL SUCCINATE 25 MG TAB.SR.24H (FP) PO SCH (09:54)
[2018-01-12] MEDS: [UNRECOGNIZED DRUG - OTHER] PO SCH (09:54)
[2018-01-12] MEDS: ALPRAZolam 0.25 MG TABLET PO SCH (10:21)
--- NOTE | 2018-01-12 11:26 | PN ---
Progress Note, Physician History of Present Illness: SOB and cough improving with BD, diuresis and O2 therapy, she denies hemoptysis or night sweats. No fever or chills. Resting on trach collar. - Current Medication List Current Medications: Active Medications Albuterol Sulfate (Ventolin 0.083% Nebulizer Soln -) 1 amp NEB Q4H PRN PRN Reason: SHORT OF BREATH/WHEEZING Last Admin: 01/10/18 20:27 Dose: 1 amp Alprazolam (Xanax -) 0.25 mg PO DAILY [facility] Last Admin: 01/12/18 10:21 Dose: 0.25 mg Amlodipine Besylate (Norvasc -) 5 mg PO DAILY [facility] Last Admin: 01/12/18 09:54 Dose: Not Given Furosemide (Lasix -) 20 mg PO DAILY [facility] Last Admin: 01/12/18 09:53 Dose: 20 mg Heparin Sodium (Porcine) (Heparin -) 5,000 unit SQ BID [facility] Last Admin: 01/12/18 09:53 Dose: 5,000 unit Methadone HCl (Dolophine -) 80 mg PO DAILY@0600 [facility] Last Admin: 01/12/18 06:03 Dose: 80 mg Metoprolol Succinate (Toprol Xl -) 25 mg PO DAILY [facility] Last Admin: 01/12/18 09:54 Dose: Not Given Mirtazapine (Remeron -) 30 mg PO HS [facility] Last Admin: 01/11/18 23:13 Dose: 30 mg Abacavir 600mg/Dolutegravir 50mg/Lamivudine 300mg [ Triumeq Tablet] 1 each PO DAILY [facility] Last Admin: 01/12/18 09:54 Dose: 1 each Quetiapine Fumarate (Seroquel -) 25 mg PO HS [facility] Last Admin: 01/11/18 23:13 Dose: 25 mg Zolpidem Tartrate (Ambien -) 5 mg PO HS PRN PRN Reason: INSOMNIA Last Admin: 01/12/18 00:30 Dose: 5 mg - Objective Vital Signs: Vital Signs Temperature 98.7 F 01/12/18 09:31 Pulse Rate 73 01/12/18 09:31 Respiratory Rate 18 01/12/18 09:31 Blood Pressure 94/59 01/12/18 09:31 O2 Sat by Pulse Oximetry (%) 98 01/12/18 09:00 Constitutional: Yes: No Distress, Calm Neck: Yes: Supple, Other (Trach collar) Cardiovascular: Yes: Regular Rate and Rhythm Respiratory: Yes: Regular, Diminished Gastrointestinal: Yes: Normal Bowel Sounds, Soft Edema: No Labs: CBC, BMP 01/11/18 10:06 01/11/18 10:06 INR, PTT INR 1.08 (0.82-1.09) 01/08/18 18:20 Problem List - Problems (1) Acute on chronic respiratory failure with hypoxia and hypercapnia Code(s): J96.21 - ACUTE AND CHRONIC RESPIRATORY FAILURE WITH HYPOXIA; J96.22 - ACUTE AND CHRONIC RESPIRATORY FAILURE WITH HYPERCAPNIA (2) HIV (human immunodeficiency virus infection) Code(s): Z21 - ASYMPTOMATIC HUMAN IMMUNODEFICIENCY VIRUS INFECTION STATUS (3) Decreased GFR Code(s): R94.4 - ABNORMAL RESULTS OF KIDNEY FUNCTION STUDIES (4) COPD (chronic obstructive pulmonary disease) Code(s): J44.9 - CHRONIC OBSTRUCTIVE PULMONARY DISEASE, UNSPECIFIED Qualifiers: COPD type: unspecified COPD Qualified Code(s): J44.9 - Chronic obstructive pulmonary disease, unspecified (5) Hypertension Code(s): I10 - ESSENTIAL (PRIMARY) HYPERTENSION Qualifiers: Hypertension type: essential hypertension Qualified Code(s): I10 - Essential (primary) hypertension (6) Hypothyroidism Code(s): E03.9 - HYPOTHYROIDISM, UNSPECIFIED Qualifiers: Hypothyroidism type: unspecified Qualified Code(s): E03.9 - Hypothyroidism , unspecified (7) Tracheostomy in place Code(s): Z98.89 - OTHER SPECIFIED POSTPROCEDURAL STATES * DO NOT USE * Assessment/Plan 01/10/2018 Echo: Normal LV size and fxn, mild-mod MR, mild TR, mild pericardial effusion 1. Dyspnea referable to acute on chronic hypoxemic, hypercapneic respiratory failure improved 2. COPD chronic tracheostomy 3. HIV on HAART 4. HTN/HCVD 5. Hypothyroidism 6. Methadone dependence P:1. BD, monitor off ABX, trach collar O2 to maintain saturation, d/c oral diuresis 2. Continue Norvasc 5 qd, Toprol XL 25 qd 3. DVT prophylaxis 4. D/c planning pending tracheostoly supplies l
--- NOTE | 2018-01-12 12:47 | PN ---
Progress Note, Physician History of Present Illness: PULMONARY ALERT,FEELING FEELING BETTER,LESS CONGESTED - Current Medication List Current Medications: Active Medications Albuterol Sulfate (Ventolin 0.083% Nebulizer Soln -) 1 amp NEB Q4H PRN PRN Reason: SHORT OF BREATH/WHEEZING Last Admin: 01/10/18 20:27 Dose: 1 amp Alprazolam (Xanax -) 0.25 mg PO DAILY [facility] Last Admin: 01/12/18 10:21 Dose: 0.25 mg Amlodipine Besylate (Norvasc -) 5 mg PO DAILY [facility] Last Admin: 01/12/18 09:54 Dose: Not Given Heparin Sodium (Porcine) (Heparin -) 5,000 unit SQ BID [facility] Last Admin: 01/12/18 09:53 Dose: 5,000 unit Methadone HCl (Dolophine -) 80 mg PO DAILY@0600 [facility] Last Admin: 01/12/18 06:03 Dose: 80 mg Metoprolol Succinate (Toprol Xl -) 25 mg PO DAILY [facility] Last Admin: 01/12/18 09:54 Dose: Not Given Mirtazapine (Remeron -) 30 mg PO HS [facility] Last Admin: 01/11/18 23:13 Dose: 30 mg Abacavir 600mg/Dolutegravir 50mg/Lamivudine 300mg [ Triumeq Tablet] 1 each PO DAILY [facility] Last Admin: 01/12/18 09:54 Dose: 1 each Quetiapine Fumarate (Seroquel -) 25 mg PO HS [facility] Last Admin: 01/11/18 23:13 Dose: 25 mg Zolpidem Tartrate (Ambien -) 5 mg PO HS PRN PRN Reason: INSOMNIA Last Admin: 01/12/18 00:30 Dose: 5 mg - Objective Vital Signs: Vital Signs Temperature 98.7 F 01/12/18 09:31 Pulse Rate 75 01/12/18 11:40 Respiratory Rate 18 01/12/18 09:31 Blood Pressure 94/59 01/12/18 09:31 O2 Sat by Pulse Oximetry (%) 96 01/12/18 11:40 Constitutional: Yes: Well Nourished, Calm Eyes: Yes: WNL HENT: Yes: WNL Neck: Yes: Supple (TRACH) Cardiovascular: Yes: Regular Rate and Rhythm, S1, S2 Respiratory: Yes: Rhonchi (FEW RHONCHI SELENE) Gastrointestinal: Yes: Normal Bowel Sounds, Soft Extremities: Yes: WNL Edema: Yes Labs: Problem List - Problems (1) Acute on chronic respiratory failure with hypoxia and hypercapnia Code(s): J96.21 - ACUTE AND CHRONIC RESPIRATORY FAILURE WITH HYPOXIA; J96.22 - ACUTE AND CHRONIC RESPIRATORY FAILURE WITH HYPERCAPNIA Assessment/Plan Problem List - Problems (1) Pleural effusion Code(s): J90 - PLEURAL EFFUSION, NOT ELSEWHERE CLASSIFIED (2) Lower leg edema Code(s): R60.0 - LOCALIZED EDEMA (3) HIV (human immunodeficiency virus infection) Code(s): Z21 - ASYMPTOMATIC HUMAN IMMUNODEFICIENCY VIRUS INFECTION STATUS (4) Asthma Code(s): J45.909 - UNSPECIFIED ASTHMA, UNCOMPLICATED (5) COPD (chronic obstructive pulmonary disease) Code(s): J44.9 - CHRONIC OBSTRUCTIVE PULMONARY DISEASE, UNSPECIFIED (6) Hypertension Code(s): I10 - ESSENTIAL (PRIMARY) HYPERTENSION Assessment/Plan Trach collar O2 to maintain saturation BD TX PRN f/u chest x-rays DR FERRO
--- NOTE | 2018-01-12 14:44 | PN ---
Progress Note, Physician History of Present Illness: continues to improve breathing improving trachestomy in place no complaints - Current Medication List Current Medications: Active Medications Albuterol Sulfate (Ventolin 0.083% Nebulizer Soln -) 1 amp NEB Q4H PRN PRN Reason: SHORT OF BREATH/WHEEZING Last Admin: 01/10/18 20:27 Dose: 1 amp Alprazolam (Xanax -) 0.25 mg PO DAILY [facility] Last Admin: 01/12/18 10:21 Dose: 0.25 mg Amlodipine Besylate (Norvasc -) 5 mg PO DAILY [facility] Last Admin: 01/12/18 09:54 Dose: Not Given Heparin Sodium (Porcine) (Heparin -) 5,000 unit SQ BID [facility] Last Admin: 01/12/18 09:53 Dose: 5,000 unit Methadone HCl (Dolophine -) 80 mg PO DAILY@0600 [facility] Last Admin: 01/12/18 06:03 Dose: 80 mg Metoprolol Succinate (Toprol Xl -) 25 mg PO DAILY [facility] Last Admin: 01/12/18 09:54 Dose: Not Given Mirtazapine (Remeron -) 30 mg PO HS [facility] Last Admin: 01/11/18 23:13 Dose: 30 mg Abacavir 600mg/Dolutegravir 50mg/Lamivudine 300mg [ Triumeq Tablet] 1 each PO DAILY [facility] Last Admin: 01/12/18 09:54 Dose: 1 each Quetiapine Fumarate (Seroquel -) 25 mg PO HS [facility] Last Admin: 01/11/18 23:13 Dose: 25 mg Zolpidem Tartrate (Ambien -) 5 mg PO HS PRN PRN Reason: INSOMNIA Last Admin: 01/12/18 00:30 Dose: 5 mg - Objective Vital Signs: Vital Signs Temperature 98.4 F 01/12/18 14:33 Pulse Rate 74 01/12/18 14:33 Respiratory Rate 18 01/12/18 14:33 Blood Pressure 92/61 01/12/18 14:33 O2 Sat by Pulse Oximetry (%) 96 01/12/18 11:40 Constitutional: Yes: No Distress, Calm Eyes: Yes: Conjunctiva Clear Neck: Yes: Supple, Other Cardiovascular: Yes: S1, S2 Respiratory: Yes: Regular, Other (on mask at trach site) Gastrointestinal: Yes: Normal Bowel Sounds, Soft Musculoskeletal: Yes: WNL Extremities: Yes: WNL Neurological: Yes: Alert, Oriented Labs: CBC, BMP 01/11/18 10:06 01/11/18 10:06 INR, PTT INR 1.08 (0.82-1.09) 01/08/18 18:20 Assessment/Plan Problem List - Problems (1) Acute on chronic respiratory failure with hypoxia and hypercapnia Code(s): J96.21 - ACUTE AND CHRONIC RESPIRATORY FAILURE WITH HYPOXIA; J96.22 - ACUTE AND CHRONIC RESPIRATORY FAILURE WITH HYPERCAPNIA (2) HIV (human immunodeficiency virus infection) Code(s): Z21 - ASYMPTOMATIC HUMAN IMMUNODEFICIENCY VIRUS INFECTION STATUS (3) Decreased GFR Code(s): R94.4 - ABNORMAL RESULTS OF KIDNEY FUNCTION STUDIES (4) COPD (chronic obstructive pulmonary disease) Code(s): J44.9 - CHRONIC OBSTRUCTIVE PULMONARY DISEASE, UNSPECIFIED Qualifiers: COPD type: unspecified COPD Qualified Code(s): J44.9 - Chronic obstructive pulmonary disease, unspecified (5) Hypertension Code(s): I10 - ESSENTIAL (PRIMARY) HYPERTENSION Qualifiers: Hypertension type: essential hypertension Qualified Code(s): I10 - Essential (primary) hypertension (6) Hypothyroidism Code(s): E03.9 - HYPOTHYROIDISM, UNSPECIFIED Qualifiers: Hypothyroidism type: unspecified Qualified Code(s): E03.9 - Hypothyroidism , unspecified (7) Tracheostomy in place Code(s): Z98.89 - OTHER SPECIFIED POSTPROCEDURAL STATES * DO NOT USE * plan continue current mgmt cx report noted continue monitoring incentive shima will watch off of abx
--- NOTE | 2018-01-12 19:01 | PN ---
Progress Note, Physician History of Present Illness: this is the NOTE FOR 01/11/18 - Current Medication List Current Medications: Active Medications Albuterol Sulfate (Ventolin 0.083% Nebulizer Soln -) 1 amp NEB Q4H PRN PRN Reason: SHORT OF BREATH/WHEEZING Last Admin: 01/10/18 20:27 Dose: 1 amp Alprazolam (Xanax -) 0.25 mg PO DAILY [facility] Last Admin: 01/12/18 10:21 Dose: 0.25 mg Amlodipine Besylate (Norvasc -) 5 mg PO DAILY [facility] Last Admin: 01/12/18 09:54 Dose: Not Given Heparin Sodium (Porcine) (Heparin -) 5,000 unit SQ BID [facility] Last Admin: 01/12/18 09:53 Dose: 5,000 unit Methadone HCl (Dolophine -) 80 mg PO DAILY@0600 [facility] Last Admin: 01/12/18 06:03 Dose: 80 mg Metoprolol Succinate (Toprol Xl -) 25 mg PO DAILY [facility] Last Admin: 01/12/18 09:54 Dose: Not Given Mirtazapine (Remeron -) 30 mg PO HS [facility] Last Admin: 01/11/18 23:13 Dose: 30 mg Abacavir 600mg/Dolutegravir 50mg/Lamivudine 300mg [ Triumeq Tablet] 1 each PO DAILY [facility] Last Admin: 01/12/18 09:54 Dose: 1 each Quetiapine Fumarate (Seroquel -) 25 mg PO HS [facility] Last Admin: 01/11/18 23:13 Dose: 25 mg Zolpidem Tartrate (Ambien -) 5 mg PO HS PRN PRN Reason: INSOMNIA Last Admin: 01/12/18 00:30 Dose: 5 mg - Objective Vital Signs: Vital Signs Temperature 97.3 F L 01/12/18 18:00 Pulse Rate 78 01/12/18 18:00 Respiratory Rate 20 01/12/18 18:00 Blood Pressure 119/81 01/12/18 18:00 O2 Sat by Pulse Oximetry (%) 96 01/12/18 11:40 Constitutional: Yes: No Distress HENT: Yes: Atraumatic Neck: Yes: Other (TRACH COLLAR) Cardiovascular: Yes: Regular Rate and Rhythm Respiratory: Yes: Rhonchi, Wheezes Gastrointestinal: Yes: Normal Bowel Sounds Extremities: Yes: WNL Neurological: Yes: Alert, Oriented Labs: CBC, BMP 01/11/18 10:06 01/11/18 10:06 INR, PTT INR 1.08 (0.82-1.09) 01/08/18 18:20 Problem List - Problems (1) COPD exacerbation Assessment/Plan: on duo nebs oxygen continue home meds dc in am if stable Code(s): J44.1 - CHRONIC OBSTRUCTIVE PULMONARY DISEASE W (ACUTE) EXACERBATION (2) HIV (human immunodeficiency virus infection) Assessment/Plan: continue home meds Code(s): Z21 - ASYMPTOMATIC HUMAN IMMUNODEFICIENCY VIRUS INFECTION STATUS
--- NOTE | 2018-01-12 19:02 | DS ---
Physical Examination Vital Signs: Vital Signs Temperature 97.3 F L 01/12/18 18:00 Pulse Rate 78 01/12/18 18:00 Respiratory Rate 20 01/12/18 18:00 Blood Pressure 119/81 01/12/18 18:00 O2 Sat by Pulse Oximetry (%) 96 01/12/18 11:40 Constitutional: Yes: No Distress HENT: Yes: Atraumatic Neck: Yes: Other (trach collar) Cardiovascular: Yes: Regular Rate and Rhythm Respiratory: Yes: Rhonchi, Wheezes Gastrointestinal: Yes: Normal Bowel Sounds Extremities: Yes: WNL Labs: CBC, BMP 01/11/18 10:06 01/11/18 10:06 Discharge Summary Reason For Visit: HUMAN IMMUNODEFICIENCY(HIV) INFECTION Current Active Problems Acute on chronic respiratory failure with hypoxia and hypercapnia (Acute) COPD exacerbation (Acute) Lower leg edema (Acute) Pleural effusion (Acute) HIV (human immunodeficiency virus infection) (Chronic) - Instructions - Home Medications Comprehensive Discharge Medication List: Ambulatory Orders Abacavir/Dolutegravir/Lamivudi [Triumeq Tablet] 1 each PO DAILY 01/08/18 Alprazolam [Xanax] 0.25 mg PO DAILY 01/08/18 Amlodipine Besylate [Norvasc -] 5 mg PO DAILY 01/08/18 Metoprolol Succinate [Toprol Xl] 25 mg PO DAILY 01/08/18 Mirtazapine [Remeron -] 30 mg PO DAILY 01/08/18 Quetiapine Fumarate [Seroquel -] 25 mg PO HS 01/08/18 Zolpidem Tartrate [Ambien] 5 mg PO HS 01/08/18 Levothyroxine [Synthroid -] 112 mcg PO DAILY 01/09/18 Methadone [Dolophine -] 80 mg PO DAILY 01/09/18 Furosemide [Lasix] 20 mg PO DAILY #30 tablet 01/10/18 [facility]
--- NOTE | 2018-01-12 19:26 | PN ---
Progress Note, Physician - Current Medication List Current Medications: Active Medications Albuterol Sulfate (Ventolin 0.083% Nebulizer Soln -) 1 amp NEB Q4H PRN PRN Reason: SHORT OF BREATH/WHEEZING Last Admin: 01/10/18 20:27 Dose: 1 amp Alprazolam (Xanax -) 0.25 mg PO DAILY [facility] Last Admin: 01/12/18 10:21 Dose: 0.25 mg Amlodipine Besylate (Norvasc -) 5 mg PO DAILY [facility] Last Admin: 01/12/18 09:54 Dose: Not Given Heparin Sodium (Porcine) (Heparin -) 5,000 unit SQ BID [facility] Last Admin: 01/12/18 09:53 Dose: 5,000 unit Methadone HCl (Dolophine -) 80 mg PO DAILY@0600 [facility] Last Admin: 01/12/18 06:03 Dose: 80 mg Metoprolol Succinate (Toprol Xl -) 25 mg PO DAILY [facility] Last Admin: 01/12/18 09:54 Dose: Not Given Mirtazapine (Remeron -) 30 mg PO HS [facility] Last Admin: 01/11/18 23:13 Dose: 30 mg Abacavir 600mg/Dolutegravir 50mg/Lamivudine 300mg [ Triumeq Tablet] 1 each PO DAILY [facility] Last Admin: 01/12/18 09:54 Dose: 1 each Quetiapine Fumarate (Seroquel -) 25 mg PO HS [facility] Last Admin: 01/11/18 23:13 Dose: 25 mg Zolpidem Tartrate (Ambien -) 5 mg PO HS PRN PRN Reason: INSOMNIA Last Admin: 01/12/18 00:30 Dose: 5 mg - Objective Vital Signs: Vital Signs Temperature 97.3 F L 01/12/18 18:00 Pulse Rate 78 01/12/18 18:00 Respiratory Rate 20 01/12/18 18:00 Blood Pressure 119/81 01/12/18 18:00 O2 Sat by Pulse Oximetry (%) 96 01/12/18 11:40 Constitutional: Yes: No Distress HENT: Yes: Atraumatic Neck: Yes: Other (trach collar) Cardiovascular: Yes: Regular Rate and Rhythm Respiratory: Yes: Rhonchi, Wheezes Gastrointestinal: Yes: Normal Bowel Sounds Extremities: Yes: WNL Edema: No Peripheral Pulses WNL: Yes Neurological: Yes: Alert, Oriented Labs: CBC, BMP 01/11/18 10:06 01/11/18 10:06 INR, PTT INR 1.08 (0.82-1.09) 01/08/18 18:20 Problem List - Problems (1) COPD exacerbation Assessment/Plan: on duo nebs oxygen continue home meds pt doing well Code(s): J44.1 - CHRONIC OBSTRUCTIVE PULMONARY DISEASE W (ACUTE) EXACERBATION (2) HIV (human immunodeficiency virus infection) Assessment/Plan: continue home meds Code(s): Z21 - ASYMPTOMATIC HUMAN IMMUNODEFICIENCY VIRUS INFECTION STATUS (3) Hypertension Assessment/Plan: will hold bp meds Code(s): I10 - ESSENTIAL (PRIMARY) HYPERTENSION Qualifiers: Hypertension type: essential hypertension Qualified Code(s): I10 - Essential (primary) hypertension Assessment/Plan awaiting supplies to be delivered at home
[2018-01-12] MEDS ORDERED: PT OWN MED DRAWER 7, Y5N ONE (21:15)
[2018-01-12] MEDS: QUEtiapine FUMARATE 25 MG TABLET (FP) PO SCH (21:47)
[2018-01-12] MEDS: MIRTAZAPINE 30 MG TABLET (FP) PO SCH (21:48)
[2018-01-13] MEDS: METHADONE HCL 40 MG DISPERSABLE TABLET PO SCH (05:41)
--- NOTE | 2018-01-13 10:10 | PN ---
Progress Note, Physician History of Present Illness: pulmonary alert,nad,less congestion,sob improving - Current Medication List Current Medications: Active Medications Albuterol Sulfate (Ventolin 0.083% Nebulizer Soln -) 1 amp NEB Q4H PRN PRN Reason: SHORT OF BREATH/WHEEZING Last Admin: 01/10/18 20:27 Dose: 1 amp Alprazolam (Xanax -) 0.25 mg PO DAILY [facility] Last Admin: 01/12/18 10:21 Dose: 0.25 mg Methadone HCl (Dolophine -) 80 mg PO DAILY@0600 [facility] Last Admin: 01/13/18 05:41 Dose: 80 mg Metoprolol Succinate (Toprol Xl -) 25 mg PO DAILY [facility] Last Admin: 01/12/18 09:54 Dose: Not Given Mirtazapine (Remeron -) 30 mg PO HS [facility] Last Admin: 01/12/18 21:48 Dose: 30 mg Abacavir 600mg/Dolutegravir 50mg/Lamivudine 300mg [ Triumeq Tablet] 1 each PO DAILY [facility] Last Admin: 01/12/18 09:54 Dose: 1 each Quetiapine Fumarate (Seroquel -) 25 mg PO HS [facility] Last Admin: 01/12/18 21:47 Dose: 25 mg Zolpidem Tartrate (Ambien -) 5 mg PO HS PRN PRN Reason: INSOMNIA Last Admin: 01/12/18 21:48 Dose: 5 mg - Objective Vital Signs: Vital Signs Temperature 98.7 F 01/13/18 05:42 Pulse Rate 75 01/13/18 05:42 Respiratory Rate 20 01/13/18 05:42 Blood Pressure 105/72 01/13/18 05:42 O2 Sat by Pulse Oximetry (%) 100 01/12/18 20:10 Constitutional: Yes: Well Nourished, Calm Eyes: Yes: WNL HENT: Yes: WNL Neck: Yes: Supple (trach) Cardiovascular: Yes: Regular Rate and Rhythm, S1, S2 Respiratory: Yes: Rhonchi (few rhonchi) Gastrointestinal: Yes: Normal Bowel Sounds, Soft Extremities: Yes: WNL Edema: No Labs: CBC, BMP Problem List - Problems (1) Acute on chronic respiratory failure with hypoxia and hypercapnia Code(s): J96.21 - ACUTE AND CHRONIC RESPIRATORY FAILURE WITH HYPOXIA; J96.22 - ACUTE AND CHRONIC RESPIRATORY FAILURE WITH HYPERCAPNIA Assessment/Plan Problem List - Problems (1) Pleural effusion Code(s): J90 - PLEURAL EFFUSION, NOT ELSEWHERE CLASSIFIED (2) Lower leg edema Code(s): R60.0 - LOCALIZED EDEMA (3) HIV (human immunodeficiency virus infection) Code(s): Z21 - ASYMPTOMATIC HUMAN IMMUNODEFICIENCY VIRUS INFECTION STATUS (4) Asthma Code(s): J45.909 - UNSPECIFIED ASTHMA, UNCOMPLICATED (5) COPD (chronic obstructive pulmonary disease) Code(s): J44.9 - CHRONIC OBSTRUCTIVE PULMONARY DISEASE, UNSPECIFIED (6) Hypertension Code(s): I10 - ESSENTIAL (PRIMARY) HYPERTENSION Assessment/Plan Trach collar O2 to maintain saturation BD TX PRN f/u chest x-rays DR FERRO
[2018-01-13] MEDS: ALPRAZolam 0.25 MG TABLET PO SCH (10:42)
[2018-01-13] MEDS: ABACAVIR PO SCH (10:43)
[2018-01-13] MEDS: [UNRECOGNIZED DRUG - OTHER] PO SCH (10:43)
[2018-01-13] MEDS: metoPROLOL SUCCINATE 25 MG TAB.SR.24H (FP) PO SCH (10:44)
--- NOTE | 2018-01-13 12:02 | PN ---
Progress Note, Physician History of Present Illness: Pt is doing well. Denies shortness of breath/cough/fever/chills. Good appetite, eating lunch. Denies having any specific problems. - Current Medication List Current Medications: Active Medications Albuterol Sulfate (Ventolin 0.083% Nebulizer Soln -) 1 amp NEB Q4H PRN PRN Reason: SHORT OF BREATH/WHEEZING Last Admin: 01/10/18 20:27 Dose: 1 amp Alprazolam (Xanax -) 0.25 mg PO DAILY [facility] Last Admin: 01/13/18 10:42 Dose: 0.25 mg Methadone HCl (Dolophine -) 80 mg PO DAILY@0600 [facility] Last Admin: 01/13/18 05:41 Dose: 80 mg Metoprolol Succinate (Toprol Xl -) 25 mg PO DAILY [facility] Last Admin: 01/13/18 10:44 Dose: Not Given Mirtazapine (Remeron -) 30 mg PO HS [facility] Last Admin: 01/12/18 21:48 Dose: 30 mg Abacavir 600mg/Dolutegravir 50mg/Lamivudine 300mg [ Triumeq Tablet] 1 each PO DAILY [facility] Last Admin: 01/13/18 10:43 Dose: 1 each Quetiapine Fumarate (Seroquel -) 25 mg PO HS [facility] Last Admin: 01/12/18 21:47 Dose: 25 mg Zolpidem Tartrate (Ambien -) 5 mg PO HS PRN PRN Reason: INSOMNIA Last Admin: 01/12/18 21:48 Dose: 5 mg - Objective Vital Signs: Vital Signs Temperature 98.5 F 01/13/18 10:21 Pulse Rate 73 01/13/18 10:21 Respiratory Rate 18 01/13/18 10:21 Blood Pressure 88/55 01/13/18 10:21 O2 Sat by Pulse Oximetry (%) 97 01/13/18 09:00 Constitutional: Yes: No Distress, Calm Neck: Yes: Supple Cardiovascular: Yes: Regular Rate and Rhythm Respiratory: Yes: Regular Gastrointestinal: Yes: Normal Bowel Sounds, Soft Neurological: Yes: Alert Labs: CBC, BMP 01/11/18 10:06 01/11/18 10:06 INR, PTT INR 1.08 (0.82-1.09) 01/08/18 18:20 Problem List - Problems (1) Acute on chronic respiratory failure with hypoxia and hypercapnia Code(s): J96.21 - ACUTE AND CHRONIC RESPIRATORY FAILURE WITH HYPOXIA; J96.22 - ACUTE AND CHRONIC RESPIRATORY FAILURE WITH HYPERCAPNIA (2) Pleural effusion Code(s): J90 - PLEURAL EFFUSION, NOT ELSEWHERE CLASSIFIED (3) HIV (human immunodeficiency virus infection) Code(s): Z21 - ASYMPTOMATIC HUMAN IMMUNODEFICIENCY VIRUS INFECTION STATUS (4) COPD (chronic obstructive pulmonary disease) Code(s): J44.9 - CHRONIC OBSTRUCTIVE PULMONARY DISEASE, UNSPECIFIED Qualifiers: COPD type: unspecified COPD Qualified Code(s): J44.9 - Chronic obstructive pulmonary disease, unspecified (5) Hypertension Code(s): I10 - ESSENTIAL (PRIMARY) HYPERTENSION Qualifiers: Hypertension type: essential hypertension Qualified Code(s): I10 - Essential (primary) hypertension Assessment/Plan Pt admitted with hypoxia, history of COPD/respiratory failure s/p trach removal , HIV on HAART -- continue current antiretroviral -- monitor off antibiotics pt appears stable currently
--- NOTE | 2018-01-13 14:49 | PN ---
Progress Note, Physician Chief Complaint: Events noted Not in distress History of Present Illness: Patient was seen and examined. Awake and alert. Chart was reviewed Denies chest pain, SOB or palpitations - Current Medication List Current Medications: Active Medications Albuterol Sulfate (Ventolin 0.083% Nebulizer Soln -) 1 amp NEB Q4H PRN PRN Reason: SHORT OF BREATH/WHEEZING Last Admin: 01/10/18 20:27 Dose: 1 amp Alprazolam (Xanax -) 0.25 mg PO DAILY [facility] Last Admin: 01/13/18 10:42 Dose: 0.25 mg Methadone HCl (Dolophine -) 80 mg PO DAILY@0600 [facility] Last Admin: 01/13/18 05:41 Dose: 80 mg Metoprolol Succinate (Toprol Xl -) 25 mg PO DAILY [facility] Last Admin: 01/13/18 10:44 Dose: Not Given Mirtazapine (Remeron -) 30 mg PO HS [facility] Last Admin: 01/12/18 21:48 Dose: 30 mg Abacavir 600mg/Dolutegravir 50mg/Lamivudine 300mg [ Triumeq Tablet] 1 each PO DAILY [facility] Last Admin: 01/13/18 10:43 Dose: 1 each Quetiapine Fumarate (Seroquel -) 25 mg PO HS [facility] Last Admin: 01/12/18 21:47 Dose: 25 mg Zolpidem Tartrate (Ambien -) 5 mg PO HS PRN PRN Reason: INSOMNIA Last Admin: 01/12/18 21:48 Dose: 5 mg - Objective Vital Signs: Vital Signs Temperature 98.4 F 01/13/18 14:41 Pulse Rate 76 01/13/18 14:41 Respiratory Rate 22 01/13/18 14:41 Blood Pressure 116/70 01/13/18 14:41 O2 Sat by Pulse Oximetry (%) 97 01/13/18 09:00 HENT: Yes: Atraumatic Neck: Yes: Supple Cardiovascular: Yes: Regular Rate and Rhythm, S1, S2 Respiratory: Yes: Diminished Gastrointestinal: Yes: Normal Bowel Sounds, Soft. No: Tenderness Edema: No Problem List - Problems (1) Acute on chronic respiratory failure with hypoxia and hypercapnia Code(s): J96.21 - ACUTE AND CHRONIC RESPIRATORY FAILURE WITH HYPOXIA; J96.22 - ACUTE AND CHRONIC RESPIRATORY FAILURE WITH HYPERCAPNIA (2) COPD exacerbation Code(s): J44.1 - CHRONIC OBSTRUCTIVE PULMONARY DISEASE W (ACUTE) EXACERBATION (3) HIV (human immunodeficiency virus infection) Code(s): Z21 - ASYMPTOMATIC HUMAN IMMUNODEFICIENCY VIRUS INFECTION STATUS (4) Hypertension Code(s): I10 - ESSENTIAL (PRIMARY) HYPERTENSION Qualifiers: Hypertension type: essential hypertension Qualified Code(s): I10 - Essential (primary) hypertension (5) Hypothyroidism Code(s): E03.9 - HYPOTHYROIDISM, UNSPECIFIED Qualifiers: Hypothyroidism type: unspecified Qualified Code(s): E03.9 - Hypothyroidism , unspecified (6) Tracheostomy in place Code(s): Z98.89 - OTHER SPECIFIED POSTPROCEDURAL STATES * DO NOT USE * Assessment/Plan 1. Dyspnea referable to acute on chronic hypoxemic, hypercapneic respiratory failure 2. COPD - chronic tracheostomy 3. HIV on HAART 4. HTN/HCVD 5. Hypothyroidism 6. Methadone dependence PLAN: 1. Bronchodilator, trach collar O2 to maintain saturation 2. Continue Norvasc 5 qd and Toprol XL 25 qd 3. DVT prophylaxis 4. Discharge planning Nick Viera MD
--- NOTE | 2018-01-13 15:46 | PN ---
Progress Note, Physician History of Present Illness: stable doing well - Current Medication List Current Medications: Active Medications Albuterol Sulfate (Ventolin 0.083% Nebulizer Soln -) 1 amp NEB Q4H PRN PRN Reason: SHORT OF BREATH/WHEEZING Last Admin: 01/10/18 20:27 Dose: 1 amp Alprazolam (Xanax -) 0.25 mg PO DAILY [facility] Last Admin: 01/13/18 10:42 Dose: 0.25 mg Methadone HCl (Dolophine -) 80 mg PO DAILY@0600 [facility] Last Admin: 01/13/18 05:41 Dose: 80 mg Metoprolol Succinate (Toprol Xl -) 25 mg PO DAILY [facility] Last Admin: 01/13/18 10:44 Dose: Not Given Mirtazapine (Remeron -) 30 mg PO HS [facility] Last Admin: 01/12/18 21:48 Dose: 30 mg Abacavir 600mg/Dolutegravir 50mg/Lamivudine 300mg [ Triumeq Tablet] 1 each PO DAILY [facility] Last Admin: 01/13/18 10:43 Dose: 1 each Quetiapine Fumarate (Seroquel -) 25 mg PO HS [facility] Last Admin: 01/12/18 21:47 Dose: 25 mg Zolpidem Tartrate (Ambien -) 5 mg PO HS PRN PRN Reason: INSOMNIA Last Admin: 01/12/18 21:48 Dose: 5 mg - Objective Vital Signs: Vital Signs Temperature 98.4 F 01/13/18 14:41 Pulse Rate 76 01/13/18 14:41 Respiratory Rate 22 01/13/18 14:41 Blood Pressure 116/70 01/13/18 14:41 O2 Sat by Pulse Oximetry (%) 97 01/13/18 09:00 Constitutional: Yes: No Distress Eyes: Yes: Conjunctiva Clear HENT: Yes: Atraumatic Neck: Yes: Other (trach collar) Cardiovascular: Yes: Regular Rate and Rhythm Respiratory: Yes: Rhonchi, Wheezes Gastrointestinal: Yes: Normal Bowel Sounds Extremities: Yes: WNL Neurological: Yes: Alert, Oriented Labs: CBC, BMP 01/11/18 10:06 01/11/18 10:06 INR, PTT INR 1.08 (0.82-1.09) 01/08/18 18:20 Problem List - Problems (1) COPD exacerbation Assessment/Plan: on duo nebs oxygen continue home meds pt doing well Code(s): J44.1 - CHRONIC OBSTRUCTIVE PULMONARY DISEASE W (ACUTE) EXACERBATION (2) HIV (human immunodeficiency virus infection) Assessment/Plan: continue home meds Code(s): Z21 - ASYMPTOMATIC HUMAN IMMUNODEFICIENCY VIRUS INFECTION STATUS (3) Hypertension Assessment/Plan: will hold bp meds Code(s): I10 - ESSENTIAL (PRIMARY) HYPERTENSION Qualifiers: Hypertension type: essential hypertension Qualified Code(s): I10 - Essential (primary) hypertension Assessment/Plan awaiting supplies to be delivered at home
[2018-01-13] MEDS: MIRTAZAPINE 30 MG TABLET (FP) PO SCH (21:22)
[2018-01-13] MEDS: QUEtiapine FUMARATE 25 MG TABLET (FP) PO SCH (21:22)
[2018-01-13] MEDS: ZOLPIDEM TARTRATE 5 MG TABLET PO PRN (21:35)
[2018-01-14] MEDS: METHADONE HCL 40 MG DISPERSABLE TABLET PO SCH (05:40)
[2018-01-14] MEDS: metoPROLOL SUCCINATE 25 MG TAB.SR.24H (FP) PO SCH (10:34)
[2018-01-14] MEDS: ABACAVIR PO SCH (10:36)
[2018-01-14] MEDS: [UNRECOGNIZED DRUG - OTHER] PO SCH (10:36)
[2018-01-14] MEDS: ALPRAZolam 0.25 MG TABLET PO SCH (10:38)
--- NOTE | 2018-01-14 11:45 | PN ---
Progress Note, Physician History of Present Illness: pulmonary alert,-resp distress. - Current Medication List Current Medications: Active Medications Albuterol Sulfate (Ventolin 0.083% Nebulizer Soln -) 1 amp NEB Q4H PRN PRN Reason: SHORT OF BREATH/WHEEZING Last Admin: 01/10/18 20:27 Dose: 1 amp Alprazolam (Xanax -) 0.25 mg PO DAILY [facility] Last Admin: 01/14/18 10:38 Dose: 0.25 mg Methadone HCl (Dolophine -) 80 mg PO DAILY@0600 [facility] Last Admin: 01/14/18 05:40 Dose: 80 mg Metoprolol Succinate (Toprol Xl -) 25 mg PO DAILY [facility] Last Admin: 01/14/18 10:34 Dose: Not Given Mirtazapine (Remeron -) 30 mg PO HS [facility] Last Admin: 01/13/18 21:22 Dose: 30 mg Abacavir 600mg/Dolutegravir 50mg/Lamivudine 300mg [ Triumeq Tablet] 1 each PO DAILY [facility] Last Admin: 01/14/18 10:36 Dose: 1 each Quetiapine Fumarate (Seroquel -) 25 mg PO HS [facility] Last Admin: 01/13/18 21:22 Dose: 25 mg Zolpidem Tartrate (Ambien -) 5 mg PO HS PRN PRN Reason: INSOMNIA Last Admin: 01/13/18 21:35 Dose: 5 mg - Objective Vital Signs: Vital Signs Temperature 98.4 F 01/14/18 10:38 Pulse Rate 73 01/14/18 10:38 Respiratory Rate 16 01/14/18 10:38 Blood Pressure 86/55 01/14/18 10:38 O2 Sat by Pulse Oximetry (%) 98 01/13/18 21:00 Constitutional: Yes: Well Nourished, Calm Eyes: Yes: WNL HENT: Yes: WNL Neck: Yes: Supple (trach) Respiratory: Yes: Rales (bibasilar crackles) Gastrointestinal: Yes: Normal Bowel Sounds, Soft Extremities: Yes: WNL Edema: No Labs: Problem List - Problems (1) Acute on chronic respiratory failure with hypoxia and hypercapnia Code(s): J96.21 - ACUTE AND CHRONIC RESPIRATORY FAILURE WITH HYPOXIA; J96.22 - ACUTE AND CHRONIC RESPIRATORY FAILURE WITH HYPERCAPNIA Assessment/Plan Problem List - Problems (1) Pleural effusion Code(s): J90 - PLEURAL EFFUSION, NOT ELSEWHERE CLASSIFIED (2) Lower leg edema Code(s): R60.0 - LOCALIZED EDEMA (3) HIV (human immunodeficiency virus infection) Code(s): Z21 - ASYMPTOMATIC HUMAN IMMUNODEFICIENCY VIRUS INFECTION STATUS (4) Asthma Code(s): J45.909 - UNSPECIFIED ASTHMA, UNCOMPLICATED (5) COPD (chronic obstructive pulmonary disease) Code(s): J44.9 - CHRONIC OBSTRUCTIVE PULMONARY DISEASE, UNSPECIFIED (6) Hypertension Code(s): I10 - ESSENTIAL (PRIMARY) HYPERTENSION Assessment/Plan Trach collar O2 to maintain saturation BD [place] PRN DR FERRO
--- NOTE | 2018-01-14 13:32 | PN ---
Progress Note, Physician History of Present Illness: Pt doing well. On trach collar. Denies shortness of breath or persistent cough. Remains afebrile. - Current Medication List Current Medications: Active Medications Albuterol Sulfate (Ventolin 0.083% Nebulizer Soln -) 1 amp NEB Q4H PRN PRN Reason: SHORT OF BREATH/WHEEZING Last Admin: 01/10/18 20:27 Dose: 1 amp Alprazolam (Xanax -) 0.25 mg PO DAILY [facility] Last Admin: 01/14/18 10:38 Dose: 0.25 mg Methadone HCl (Dolophine -) 80 mg PO DAILY@0600 [facility] Last Admin: 01/14/18 05:40 Dose: 80 mg Metoprolol Succinate (Toprol Xl -) 25 mg PO DAILY [facility] Last Admin: 01/14/18 10:34 Dose: Not Given Mirtazapine (Remeron -) 30 mg PO HS [facility] Last Admin: 01/13/18 21:22 Dose: 30 mg Abacavir 600mg/Dolutegravir 50mg/Lamivudine 300mg [ Triumeq Tablet] 1 each PO DAILY [facility] Last Admin: 01/14/18 10:36 Dose: 1 each Quetiapine Fumarate (Seroquel -) 25 mg PO HS [facility] Last Admin: 01/13/18 21:22 Dose: 25 mg Zolpidem Tartrate (Ambien -) 5 mg PO HS PRN PRN Reason: INSOMNIA Last Admin: 01/13/18 21:35 Dose: 5 mg - Objective Vital Signs: Vital Signs Temperature 98.4 F 01/14/18 10:38 Pulse Rate 73 01/14/18 10:38 Respiratory Rate 16 01/14/18 10:38 Blood Pressure 86/55 01/14/18 10:38 O2 Sat by Pulse Oximetry (%) 98 01/14/18 09:00 Constitutional: Yes: No Distress, Calm Neck: Yes: Supple Cardiovascular: Yes: Regular Rate and Rhythm Respiratory: Yes: Regular Gastrointestinal: Yes: Normal Bowel Sounds, Soft Genitourinary: Yes: WNL Extremities: Yes: WNL Neurological: Yes: Alert, Oriented Labs: CBC, BMP 01/11/18 10:06 01/11/18 10:06 INR, PTT INR 1.08 (0.82-1.09) 01/08/18 18:20 Problem List - Problems (1) Acute on chronic respiratory failure with hypoxia and hypercapnia Code(s): J96.21 - ACUTE AND CHRONIC RESPIRATORY FAILURE WITH HYPOXIA; J96.22 - ACUTE AND CHRONIC RESPIRATORY FAILURE WITH HYPERCAPNIA (2) Pleural effusion Code(s): J90 - PLEURAL EFFUSION, NOT ELSEWHERE CLASSIFIED (3) HIV (human immunodeficiency virus infection) Code(s): Z21 - ASYMPTOMATIC HUMAN IMMUNODEFICIENCY VIRUS INFECTION STATUS (4) COPD (chronic obstructive pulmonary disease) Code(s): J44.9 - CHRONIC OBSTRUCTIVE PULMONARY DISEASE, UNSPECIFIED Qualifiers: COPD type: unspecified COPD Qualified Code(s): J44.9 - Chronic obstructive pulmonary disease, unspecified (5) Hypertension Code(s): I10 - ESSENTIAL (PRIMARY) HYPERTENSION Qualifiers: Hypertension type: essential hypertension Qualified Code(s): I10 - Essential (primary) hypertension Assessment/Plan Pt admitted with hypoxia, history of COPD/respiratory failure s/p trach removal , HIV on HAART -- continue current antiretroviral, pt instructed to f/u with outpt ID physician -- monitor off antibiotics -- remains on O2 trach collar
[2018-01-14] MEDS: ZOLPIDEM TARTRATE 5 MG TABLET PO PRN (21:42)
[2018-01-14] MEDS: MIRTAZAPINE 30 MG TABLET (FP) PO SCH (21:42)
[2018-01-14] MEDS: QUEtiapine FUMARATE 25 MG TABLET (FP) PO SCH (21:42)
--- NOTE | 2018-01-14 22:02 | PN ---
Progress Note, Physician History of Present Illness: stable doing well - Current Medication List Current Medications: Active Medications Albuterol Sulfate (Ventolin 0.083% Nebulizer Soln -) 1 amp NEB Q4H PRN PRN Reason: SHORT OF BREATH/WHEEZING Last Admin: 01/10/18 20:27 Dose: 1 amp Alprazolam (Xanax -) 0.25 mg PO DAILY [facility] Last Admin: 01/14/18 10:38 Dose: 0.25 mg Methadone HCl (Dolophine -) 80 mg PO DAILY@0600 [facility] Last Admin: 01/14/18 05:40 Dose: 80 mg Metoprolol Succinate (Toprol Xl -) 25 mg PO DAILY [facility] Last Admin: 01/14/18 10:34 Dose: Not Given Mirtazapine (Remeron -) 30 mg PO HS [facility] Last Admin: 01/14/18 21:42 Dose: 30 mg Abacavir 600mg/Dolutegravir 50mg/Lamivudine 300mg [ Triumeq Tablet] 1 each PO DAILY [facility] Last Admin: 01/14/18 10:36 Dose: 1 each Quetiapine Fumarate (Seroquel -) 25 mg PO HS [facility] Last Admin: 01/14/18 21:42 Dose: 25 mg Zolpidem Tartrate (Ambien -) 5 mg PO HS PRN PRN Reason: INSOMNIA Last Admin: 01/14/18 21:42 Dose: 5 mg - Objective Vital Signs: Vital Signs Temperature 98.6 F 01/14/18 21:37 Pulse Rate 80 01/14/18 21:37 Respiratory Rate 20 01/14/18 21:37 Blood Pressure 117/78 01/14/18 21:37 O2 Sat by Pulse Oximetry (%) 100 01/14/18 21:00 Constitutional: Yes: No Distress HENT: Yes: Atraumatic Neck: Yes: Other (trach collar) Cardiovascular: Yes: Regular Rate and Rhythm Respiratory: Yes: Rhonchi, Wheezes Gastrointestinal: Yes: Normal Bowel Sounds Extremities: Yes: WNL Neurological: Yes: Alert, Oriented Labs: CBC, BMP 01/11/18 10:06 01/11/18 10:06 INR, PTT INR 1.08 (0.82-1.09) 01/08/18 18:20 Problem List - Problems (1) COPD exacerbation Assessment/Plan: on duo nebs oxygen continue home meds pt doing well Code(s): J44.1 - CHRONIC OBSTRUCTIVE PULMONARY DISEASE W (ACUTE) EXACERBATION (2) HIV (human immunodeficiency virus infection) Assessment/Plan: continue home meds Code(s): Z21 - ASYMPTOMATIC HUMAN IMMUNODEFICIENCY VIRUS INFECTION STATUS (3) Hypertension Assessment/Plan: will hold bp meds Code(s): I10 - ESSENTIAL (PRIMARY) HYPERTENSION Qualifiers: Hypertension type: essential hypertension Qualified Code(s): I10 - Essential (primary) hypertension Assessment/Plan awaiting supplies to be delivered at home
[2018-01-15] MEDS: METHADONE HCL 40 MG DISPERSABLE TABLET PO SCH (05:34)
[2018-01-15] MEDS: [UNRECOGNIZED DRUG - OTHER] PO SCH (09:20)
[2018-01-15] MEDS: ABACAVIR PO SCH (09:20)
[2018-01-15] MEDS: ALPRAZolam 0.25 MG TABLET PO SCH (09:20)
[2018-01-15] MEDS: metoPROLOL SUCCINATE 25 MG TAB.SR.24H (FP) PO SCH (09:20)
--- NOTE | 2018-01-15 11:53 | PN ---
Progress Note, Physician History of Present Illness: SOB and cough improving with BD, diuresis and O2 therapy, she denies hemoptysis or night sweats. No fever or chills. Resting on trach collar. - Current Medication List Current Medications: Active Medications Albuterol Sulfate (Ventolin 0.083% Nebulizer Soln -) 1 amp NEB Q4H PRN PRN Reason: SHORT OF BREATH/WHEEZING Last Admin: 01/10/18 20:27 Dose: 1 amp Alprazolam (Xanax -) 0.25 mg PO DAILY [facility] Last Admin: 01/15/18 09:20 Dose: 0.25 mg Methadone HCl (Dolophine -) 80 mg PO DAILY@0600 [facility] Last Admin: 01/15/18 05:34 Dose: 80 mg Metoprolol Succinate (Toprol Xl -) 25 mg PO DAILY [facility] Last Admin: 01/15/18 09:20 Dose: Not Given Mirtazapine (Remeron -) 30 mg PO [facility] Last Admin: 01/14/18 21:42 Dose: 30 mg Abacavir 600mg/Dolutegravir 50mg/Lamivudine 300mg [ Triumeq Tablet] 1 each PO DAILY [facility] Last Admin: 01/15/18 09:20 Dose: 1 each Quetiapine Fumarate (Seroquel -) 25 mg PO [facility] Last Admin: 01/14/18 21:42 Dose: 25 mg - Objective Vital Signs: Vital Signs Temperature 97.9 F 01/15/18 09:05 Pulse Rate 75 01/15/18 09:05 Respiratory Rate 20 01/15/18 09:05 Blood Pressure 110/72 01/15/18 09:05 O2 Sat by Pulse Oximetry (%) 94 L 01/15/18 09:01 Constitutional: Yes: No Distress, Calm Neck: Yes: Supple, Other (Trach collar) Cardiovascular: Yes: Regular Rate and Rhythm Respiratory: Yes: Regular, Diminished Gastrointestinal: Yes: Normal Bowel Sounds, Soft, Abdomen, Obese Edema: No Labs: CBC, BMP 01/11/18 10:06 01/11/18 10:06 INR, PTT INR 1.08 (0.82-1.09) 01/08/18 18:20 Problem List - Problems (1) Acute on chronic respiratory failure with hypoxia and hypercapnia Code(s): J96.21 - ACUTE AND CHRONIC RESPIRATORY FAILURE WITH HYPOXIA; J96.22 - ACUTE AND CHRONIC RESPIRATORY FAILURE WITH HYPERCAPNIA (2) HIV (human immunodeficiency virus infection) Code(s): Z21 - ASYMPTOMATIC HUMAN IMMUNODEFICIENCY VIRUS INFECTION STATUS (3) Decreased GFR Code(s): R94.4 - ABNORMAL RESULTS OF KIDNEY FUNCTION STUDIES (4) COPD (chronic obstructive pulmonary disease) Code(s): J44.9 - CHRONIC OBSTRUCTIVE PULMONARY DISEASE, UNSPECIFIED Qualifiers: COPD type: unspecified COPD Qualified Code(s): J44.9 - Chronic obstructive pulmonary disease, unspecified (5) Hypertension Code(s): I10 - ESSENTIAL (PRIMARY) HYPERTENSION Qualifiers: Hypertension type: essential hypertension Qualified Code(s): I10 - Essential (primary) hypertension (6) Hypothyroidism Code(s): E03.9 - HYPOTHYROIDISM, UNSPECIFIED Qualifiers: Hypothyroidism type: unspecified Qualified Code(s): E03.9 - Hypothyroidism , unspecified (7) Tracheostomy in place Code(s): Z98.89 - OTHER SPECIFIED POSTPROCEDURAL STATES * DO NOT USE * Assessment/Plan 01/10/2018 Echo: Normal LV size and fxn, mild-mod MR, mild TR, mild pericardial effusion 1. Dyspnea referable to acute on chronic hypoxemic, hypercapneic respiratory failure 2. COPD - chronic tracheostomy 3. HIV on HAART 4. HTN/HCVD 5. Hypothyroidism 6. Methadone dependence PLAN: 1. Bronchodilator, trach collar O2 to maintain saturation 2. Continue Toprol XL 25 qd 3. DVT prophylaxis 4. Discharge planning
[2018-01-15] MEDS ORDERED: PT OWN MED DRAWER 7, Y5N ONE ×2 (12:05→20:53)
--- NOTE | 2018-01-15 12:22 | PN ---
Progress Note, Physician History of Present Illness: stable no issues comfortable on trach collar - Current Medication List Current Medications: Active Medications Albuterol Sulfate (Ventolin 0.083% Nebulizer Soln -) 1 amp NEB Q4H PRN PRN Reason: SHORT OF BREATH/WHEEZING Last Admin: 01/10/18 20:27 Dose: 1 amp Alprazolam (Xanax -) 0.25 mg PO DAILY [facility] Last Admin: 01/15/18 09:20 Dose: 0.25 mg Methadone HCl (Dolophine -) 80 mg PO DAILY@0600 [facility] Last Admin: 01/15/18 05:34 Dose: 80 mg Metoprolol Succinate (Toprol Xl -) 25 mg PO DAILY [facility] Last Admin: 01/15/18 09:20 Dose: Not Given Mirtazapine (Remeron -) [address] [facility] Last Admin: 01/14/18 21:42 Dose: 30 mg Abacavir 600mg/Dolutegravir 50mg/Lamivudine 300mg [ Triumeq Tablet] 1 each PO DAILY [facility] Last Admin: 01/15/18 09:20 Dose: 1 each Quetiapine Fumarate (Seroquel -) [address] [facility] Last Admin: 01/14/18 21:42 Dose: 25 mg - Objective Vital Signs: Vital Signs Temperature 97.9 F 01/15/18 09:05 Pulse Rate 75 01/15/18 09:05 Respiratory Rate 20 01/15/18 09:05 Blood Pressure 110/72 01/15/18 09:05 O2 Sat by Pulse Oximetry (%) 94 L 01/15/18 09:01 Constitutional: Yes: No Distress, Calm Neck: Yes: Supple, Other Cardiovascular: Yes: S1, S2 Respiratory: Yes: Regular, Other (diminished) Gastrointestinal: Yes: Normal Bowel Sounds, Soft Musculoskeletal: Yes: WNL Extremities: Yes: WNL Labs: CBC, BMP 01/11/18 10:06 01/11/18 10:06 INR, PTT INR 1.08 (0.82-1.09) 01/08/18 18:20 Assessment/Plan Problem List - Problems (1) Acute on chronic respiratory failure with hypoxia and hypercapnia Code(s): J96.21 - ACUTE AND CHRONIC RESPIRATORY FAILURE WITH HYPOXIA; J96.22 - ACUTE AND CHRONIC RESPIRATORY FAILURE WITH HYPERCAPNIA (2) HIV (human immunodeficiency virus infection) Code(s): Z21 - ASYMPTOMATIC HUMAN IMMUNODEFICIENCY VIRUS INFECTION STATUS (3) Decreased GFR Code(s): R94.4 - ABNORMAL RESULTS OF KIDNEY FUNCTION STUDIES (4) COPD (chronic obstructive pulmonary disease) Code(s): J44.9 - CHRONIC OBSTRUCTIVE PULMONARY DISEASE, UNSPECIFIED Qualifiers: COPD type: unspecified COPD Qualified Code(s): J44.9 - Chronic obstructive pulmonary disease, unspecified (5) Hypertension Code(s): I10 - ESSENTIAL (PRIMARY) HYPERTENSION Qualifiers: Hypertension type: essential hypertension Qualified Code(s): I10 - Essential (primary) hypertension (6) Hypothyroidism Code(s): E03.9 - HYPOTHYROIDISM, UNSPECIFIED Qualifiers: Hypothyroidism type: unspecified Qualified Code(s): E03.9 - Hypothyroidism , unspecified (7) Tracheostomy in place Code(s): Z98.89 - OTHER SPECIFIED POSTPROCEDURAL STATES * DO NOT USE * plan continue current mgmt cx report noted continue monitoring incentive shima
--- NOTE | 2018-01-15 13:49 | PN ---
Progress Note, Physician History of Present Illness: pulmonary alert,no distress,-tachypnea - Current Medication List Current Medications: Active Medications Albuterol Sulfate (Ventolin 0.083% Nebulizer Soln -) 1 amp NEB Q4H PRN PRN Reason: SHORT OF BREATH/WHEEZING Last Admin: 01/10/18 20:27 Dose: 1 amp Alprazolam (Xanax -) 0.25 mg PO DAILY [facility] Last Admin: 01/15/18 09:20 Dose: 0.25 mg Methadone HCl (Dolophine -) 80 mg PO DAILY@0600 [facility] Last Admin: 01/15/18 05:34 Dose: 80 mg Metoprolol Succinate (Toprol Xl -) 25 mg PO DAILY [facility] Last Admin: 01/15/18 09:20 Dose: Not Given Mirtazapine (Remeron -) 30 mg PO HS [facility] Last Admin: 01/14/18 21:42 Dose: 30 mg Abacavir 600mg/Dolutegravir 50mg/Lamivudine 300mg [ Triumeq Tablet] 1 each PO DAILY [facility] Last Admin: 01/15/18 09:20 Dose: 1 each Quetiapine Fumarate (Seroquel -) 25 mg PO [facility] Last Admin: 01/14/18 21:42 Dose: 25 mg - Objective Vital Signs: Vital Signs Temperature 97.9 F 01/15/18 09:05 Pulse Rate 75 01/15/18 09:05 Respiratory Rate 20 01/15/18 09:05 Blood Pressure 110/72 01/15/18 09:05 O2 Sat by Pulse Oximetry (%) 94 L 01/15/18 09:01 Constitutional: Yes: Calm, Thin Eyes: Yes: WNL HENT: Yes: WNL Neck: Yes: WNL Cardiovascular: Yes: Regular Rate and Rhythm, S1, S2 Respiratory: Yes: Diminished Gastrointestinal: Yes: Normal Bowel Sounds, Soft Extremities: Yes: WNL Edema: No Labs: CBC, BMP Problem List - Problems (1) Acute on chronic respiratory failure with hypoxia and hypercapnia Code(s): J96.21 - ACUTE AND CHRONIC RESPIRATORY FAILURE WITH HYPOXIA; J96.22 - ACUTE AND CHRONIC RESPIRATORY FAILURE WITH HYPERCAPNIA Assessment/Plan Problem List - Problems (1) Pleural effusion Code(s): J90 - PLEURAL EFFUSION, NOT ELSEWHERE CLASSIFIED (2) Lower leg edema Code(s): R60.0 - LOCALIZED EDEMA (3) HIV (human immunodeficiency virus infection) Code(s): Z21 - ASYMPTOMATIC HUMAN IMMUNODEFICIENCY VIRUS INFECTION STATUS (4) Asthma Code(s): J45.909 - UNSPECIFIED ASTHMA, UNCOMPLICATED (5) COPD (chronic obstructive pulmonary disease) Code(s): J44.9 - CHRONIC OBSTRUCTIVE PULMONARY DISEASE, UNSPECIFIED (6) Hypertension Code(s): I10 - ESSENTIAL (PRIMARY) HYPERTENSION Assessment/Plan Trach collar O2 to maintain saturation BD [place] PRN DR FERRO
[2018-01-15] MEDS: QUEtiapine FUMARATE 25 MG TABLET (FP) PO SCH (21:17)
[2018-01-15] MEDS: MIRTAZAPINE 30 MG TABLET (FP) PO SCH (21:17)
--- NOTE | 2018-01-15 21:22 | PN ---
Progress Note, Physician - Current Medication List Current Medications: Active Medications Albuterol Sulfate (Ventolin 0.083% Nebulizer Soln -) 1 amp NEB Q4H PRN PRN Reason: SHORT OF BREATH/WHEEZING Last Admin: 01/10/18 20:27 Dose: 1 amp Alprazolam (Xanax -) 0.25 mg PO DAILY [facility] Last Admin: 01/15/18 09:20 Dose: 0.25 mg Levothyroxine Sodium (Synthroid -) 112 mcg PO DAILY@0700 [facility] Methadone HCl (Dolophine -) 80 mg PO DAILY@0600 [facility] Last Admin: 01/15/18 05:34 Dose: 80 mg Metoprolol Succinate (Toprol Xl -) 25 mg PO DAILY [facility] Last Admin: 01/15/18 09:20 Dose: Not Given Mirtazapine (Remeron -) 30 mg PO HS [facility] Last Admin: 01/15/18 21:17 Dose: 30 mg Abacavir 600mg/Dolutegravir 50mg/Lamivudine 300mg [ Triumeq Tablet] 1 each PO DAILY [facility] Last Admin: 01/15/18 09:20 Dose: 1 each Quetiapine Fumarate (Seroquel -) 25 mg PO [facility] Last Admin: 01/15/18 21:17 Dose: 25 mg - Objective Vital Signs: Vital Signs Temperature 98.1 F 01/15/18 18:00 Pulse Rate 78 01/15/18 18:00 Respiratory Rate 18 01/15/18 18:00 Blood Pressure 131/76 01/15/18 18:00 O2 Sat by Pulse Oximetry (%) 94 L 01/15/18 09:01 Labs: CBC, BMP 01/11/18 10:06 01/11/18 10:06 INR, PTT INR 1.08 (0.82-1.09) 01/08/18 18:20 Problem List - Problems (1) COPD exacerbation Code(s): J44.1 - CHRONIC OBSTRUCTIVE PULMONARY DISEASE W (ACUTE) EXACERBATION (2) HIV (human immunodeficiency virus infection) Code(s): Z21 - ASYMPTOMATIC HUMAN IMMUNODEFICIENCY VIRUS INFECTION STATUS (3) Hypertension Code(s): I10 - ESSENTIAL (PRIMARY) HYPERTENSION Qualifiers: Hypertension type: essential hypertension Qualified Code(s): I10 - Essential (primary) hypertension (4) Hypothyroidism Code(s): E03.9 - HYPOTHYROIDISM, UNSPECIFIED Qualifiers: Hypothyroidism type: unspecified Qualified Code(s): E03.9 - Hypothyroidism , unspecified
[2018-01-15 21:28] VITALS: BP 143/91; PULSE 82; TEMP 98.9
--- NOTE | 2018-01-15 21:29 | DS ---
Physical Examination Vital Signs: Vital Signs Temperature 98.1 F 01/15/18 18:00 Pulse Rate 78 01/15/18 18:00 Respiratory Rate 18 01/15/18 21:00 Blood Pressure 131/76 01/15/18 18:00 O2 Sat by Pulse Oximetry (%) 98 01/15/18 21:00 Constitutional: Yes: No Distress HENT: Yes: Atraumatic Neck: Yes: Supple Cardiovascular: Yes: Regular Rate and Rhythm Respiratory: Yes: CTA Bilaterally Gastrointestinal: Yes: Normal Bowel Sounds Extremities: Yes: WNL Neurological: Yes: Alert, Oriented Labs: CBC, BMP 01/11/18 10:06 01/11/18 10:06 Discharge Summary Reason For Visit: HUMAN IMMUNODEFICIENCY(HIV) INFECTION Current Active Problems Acute on chronic respiratory failure with hypoxia and hypercapnia (Acute) COPD exacerbation (Acute) Lower leg edema (Acute) Pleural effusion (Acute) HIV (human immunodeficiency virus infection) (Chronic) - Instructions Diet, Activity, Other Instructions: hold bp meds and lasix fu pmd next week for bp check - Home Medications Comprehensive Discharge Medication List: Ambulatory Orders Abacavir/Dolutegravir/Lamivudi [Triumeq Tablet] 1 each PO DAILY 01/08/18 Alprazolam [Xanax] 0.25 mg PO DAILY 01/08/18 Amlodipine Besylate [Norvasc -] 5 mg PO DAILY 01/08/18 Metoprolol Succinate [Toprol Xl] 25 mg PO DAILY 01/08/18 Mirtazapine [Remeron -] 30 mg PO DAILY 01/08/18 Quetiapine Fumarate [Seroquel -] 25 mg PO HS 01/08/18 Zolpidem Tartrate [Ambien] 5 mg PO HS 01/08/18 Levothyroxine [Synthroid -] 112 mcg PO DAILY 01/09/18 Methadone [Dolophine -] 80 mg PO DAILY 01/09/18 Furosemide [Lasix] 20 mg PO DAILY #30 tablet 01/10/18 dc home pt got her supplies delivered
[2018-01-16] MEDS ORDERED: LEVOTHYROXINE NA 112 MCG TABLET (FP) PO SCH (07:00)
--- NOTE | 2018-01-18 12:00 | PN ---
Progress Note, Physician Chief Complaint: ID Recently admitted to the hospital for exacerbation of COPD NO fevers Chest xray showed left pleural effusion No further workup done ON Home O2 and doing better - Objective Vital Signs: Vital Signs Temperature 98.9 F 01/15/18 21:26 Pulse Rate 82 01/15/18 21:26 Respiratory Rate 18 01/15/18 21:26 Blood Pressure 143/91 01/15/18 21:26 O2 Sat by Pulse Oximetry (%) 98 01/15/18 21:00 Constitutional: Yes: Well Nourished, No Distress HENT: Yes: WNL, Atraumatic Neck: Yes: Other (Trach) Cardiovascular: Yes: Regular Rate and Rhythm, S1, S2 Respiratory: Yes: WNL, Regular, CTA Bilaterally. No: Rhonchi Gastrointestinal: Yes: Normal Bowel Sounds, Soft. No: Tenderness, Tenderness, Epigastrium Edema: No Labs: CBC, BMP 01/11/18 10:06 01/11/18 10:06 INR, PTT INR 1.08 (0.82-1.09) 01/08/18 18:20 Problem List - Problems (1) COPD exacerbation Code(s): J44.1 - CHRONIC OBSTRUCTIVE PULMONARY DISEASE W (ACUTE) EXACERBATION (2) Pleural effusion Code(s): J90 - PLEURAL EFFUSION, NOT ELSEWHERE CLASSIFIED (3) COPD (chronic obstructive pulmonary disease) Code(s): J44.9 - CHRONIC OBSTRUCTIVE PULMONARY DISEASE, UNSPECIFIED Qualifiers: COPD type: unspecified COPD Qualified Code(s): J44.9 - Chronic obstructive pulmonary disease, unspecified (4) HIV (human immunodeficiency virus infection) Code(s): Z21 - ASYMPTOMATIC HUMAN IMMUNODEFICIENCY VIRUS INFECTION STATUS (5) Tracheostomy in place Code(s): Z98.89 - OTHER SPECIFIED POSTPROCEDURAL STATES * DO NOT USE * Assessment/Plan Laboratory Tests 08/10/17 09/27/17 09/27/17 11:10 11:45 11:45 BUN Creatinine Creat Clearance w eGFR Total LDL Cholesterol 127 H Absolute CD4 [place] 463 HIV-1 RNA (PCR) <20 01/11/18 10:06 BUN 12 Creatinine 1.3 H Creat Clearance w eGFR 42.37 Total LDL Cholesterol Absolute CD4 [place] HIV-1 RNA (PCR) Assessment HIV infection CKD Recent exacerbation COPD Trach history of laryngeal cancer Hypertension Left effusion Plan T cell Viral load chem 7 Doing better post discharge [place] MD
== END 2018-01-15 23:58 | disposition home or self-care (01) | DRG 189 ==
LOC: JER 17:31 → JERBED 19:57 → J7W 01-09 01:09
PROVIDERS: ADMIT Internal Medicine; ATTEND Internal Medicine
DX: J96.21 Acute and chronic respiratory failure with hypoxia (principal); J44.1 Chronic obstructive pulmonary disease with (acute) exacerbation; J90 Pleural effusion, not elsewhere classified; F11.20 Opioid dependence, uncomplicated; J96.22 Acute and chronic respiratory failure with hypercapnia; Z21 Asymptomatic human immunodeficiency virus [HIV] infection status; Z93.0 Tracheostomy status; E03.9 Hypothyroidism, unspecified; J45.909 Unspecified asthma, uncomplicated; I11.9 Hypertensive heart disease without heart failure
CPT/HCPCS: 36415; 36600; 71045-TC-FY; 80053; 81003; 82803; 83050; 83605; 83880; 84484; 85025; 85610; 85730; 87040; 87086; 93005; 93010; 93306-TC; 94640; 97116-GP; 97161-GP; 99284-25; J1644; J7620

== ENCOUNTER 2018-02-22 09:13 | Observation (INO) | payer OTHER ==
[2018-02-22] MEDS ORDERED: ACETYLCYSTEINE 20% 200MG/ML 30 ML VIAL *FOR ORAL / INH USE ONLY NEB ONE (09:51)
[2018-02-22] MEDS ORDERED: ALBUTEROL SO4 2.5/IPRATROPIUM 0.5 INH SOL 3 ML VIAL.NEB. NEB ONE ×2 (09:51→09:56)
--- NOTE | 2018-02-22 10:14 | PDOC ---
History of Present Illness - General Chief Complaint: Shortness of Breath Stated Complaint: Shortness of Breath Time Seen by Provider: 02/22/18 09:26 History Source: Patient - History of Present Illness Initial Comments: 02/22/18 10:14 HPI: Patient is a 57 year old female with PSH of tracheostomy tube Shiley size 8 cuffed placed in October 2006, PMH of HIV on retrovirals, HTN presents to ED from [facility] with clogged tube. She states she was taking a bath on Monday when water got into her tube. She comes in today because she kept on coughing out thick green mucus and was saturating at around 60%. Patient normally saturates around "90-95%". Patient is coughing up green mucus, has chronic nasal congestion, difficulty breathing. Denies fever, chills, headache, chest pain, abdominal pain, N/V/D, lightheadedness, new rashes, palpitations. She was last hospitalized a couple of weeks ago for pneumonia. PCP: [facility] PMH: As per HPI. PSH: As per HPI. Meds: amlodipine, metoprolol, Triumeq Allergies: PCN, Levaquin Past History - Past Medical History Allergies/Adverse Reactions: Allergies Allergy/AdvReac Type Severity Reaction Status Date / Time latex Allergy Verified 02/22/18 12:39 levofloxacin [From Levaquin] Allergy Verified 02/22/18 12:39 Penicillins Allergy Verified 02/22/18 12:39 Home Medications: Ambulatory Orders Levothyroxine [Synthroid -] 112 mcg PO DAILY 01/09/18 Methadone [Dolophine -] 80 mg PO DAILY 01/09/18 Furosemide [Lasix] 20 mg PO DAILY #30 tablet 01/10/18 Alprazolam [Xanax] 0.25 mg PO DAILY PRN #16 tablet MDD 1/2 tablet 01/18/18 Mirtazapine [Remeron -] 30 mg PO DAILY #30 tablet 01/18/18 Quetiapine Fumarate [Seroquel -] 25 mg PO HS #30 tablet 01/18/18 Sertraline HCl [Zoloft -] 50 mg PO DAILY #30 tablet 01/18/18 Zolpidem Tartrate [Ambien] 5 mg PO HS #30 tablet MDD 1 01/18/18 Abacavir/Dolutegravir/Lamivudi [Triumeq Tablet] 1 each PO DAILY #30 tablet 02/13 Amlodipine Besylate [Norvasc -] 5 mg PO DAILY #30 tablet 02/13/18 Metoprolol Succinate [Toprol Xl] 25 mg PO DAILY #30 tab.er.24h 02/13/18 Multivitamin,Ther and Minerals [Vitamin and Minerals] 1 each PO DAILY #30 tablet 02/13/18 Anemia: No Asthma: No Cancer: Yes (throat w/tracheostomy) Cardiac Disorders: No CVA: No COPD: No CHF: No DVT: No Dementia: No Diabetes: No GI Disorders: No Disorders: No HTN: Yes Hypercholesterolemia: No HIV: Yes Liver Disease: No Seizures: No Thyroid Disease: No - Surgical History Abdominal Surgery: No Appendectomy: No Cardiac Surgery: No Cholecystectomy: No Lung Surgery: No Neurologic Surgery: No Orthopedic Surgery: No (Larygotomy) - Suicide/Smoking/Psychosocial Hx Smoking Status: No Smoking History: Former smoker Have you smoked in the past 12 months: No Number of Cigarettes Smoked Daily: 0 If you are a former smoker, when did you quit?: 2006 Cigars Per Day: 0 Information on smoking cessation initiated: No Hx Alcohol Use: No Drug/Substance Use Hx: Yes Substance Use Type: None Hx Substance Use Treatment: No Review of Systems - Review of Systems Comments:: 02/22/18 10:56 ROS: Constitutional: No fevers, chills, fatigue, malaise HEENT: Rhinorrhea, nasal congestion. No visual changes, throat pain Cardiovascular: No chest pain, syncope, palpitations, lightheadedness Respiratory: Cough productive of green sputum, SOB. No Hemoptysis, Gastrointestinal: No Abdominal pain, Nausea, Vomiting, Constipation, Diarrhea, Melena Genitourinary: No Dysuria, Frequency, Urgency, Hesitancy, Hematuria, Flank pain Musculoskeletal: No Myalgia, arthralgia Skin: No rashes Neurologic: No Headache, Dizziness, Numbness, Weakness, or Tingling *Physical Exam - Vital Signs Last Vital Signs Temp Pulse Resp BP Pulse Ox 99.3 F 105 H 24 131/86 57 L 02/22/18 09:50 02/22/18 09:50 02/22/18 09:50 02/22/18 09:50 02/22/18 09:50 - Physical Exam Comments: 02/22/18 10:57 Physical Exam: *peformed after patient was placed on vent and suctioned General Appearance: Tired appearing. Nourished. HEENT: EOMI, PATRIC, Moist mucus membranes. No Pharyngeal Erythema, Tonsillar Exudate, Tonsillar Erythema Neck: Tracheostomy tube. No Cervical Lymphadenopathy Respiratory/Chest: Crackles auscultated in lower lung macdonald. Cardiovascular: Regular Rhythm, Regular Rate. No JVD, Murmur, Gallops, Rubs Gastrointestinal/Abdominal: Normal Bowel Sounds, Soft. No Guarding, Rebound, Tenderness Musculoskeletal: No CVA Tenderness Extremity: Normal Capillary Refill Integumentary: Normal Color, Dry, Warm. Skin surrounding tracheostomy was non erythematous, clean, no drainage. Neurologic: patent clerk II-XII NML intact, Fully Oriented, Alert, Normal Mood/Affect, Normal Response ED Treatment Course - LABORATORY CBC & Chemistry Diagram: 02/22/18 10:21 02/22/18 10:21 Medical Decision Making - Medical Decision Making 02/22/18 11:02 57 yo female with PSH of tracheostomy tube placed 10/2006, PMH of HIV, HTN sent from [facility] presenting with blocked tracheostomy tube Upon arrival, patient was saturating at 60-70%. Respiratory was called and tube was suctioned. Patient was placed on vent with the following settings: RR 14, TV 350, SpO2 100%, Peak flow 50, PEEP 5. Patient started to saturate at 97-100% . Patient was also provided breathing treatment with DuoNeb and NAC. Blood pressure, heart rate and respiratory rate wnl. Patient reported "feeling better ". Due to patient's history of HIV, recent hospitalization for pneumonia and aspiration through tracheostomy tube, there was high concern for infection. Rectal temperature was 97F and vitals with ventilator wnl. CXR compared to 2017 showed increased pulmonary and pleural changes on the Left but diminished on the Right. CBC showed slightly increased WBC of 11.5 Low suspicion for infectious pulmonary processes. Troponin, CMP wnl. VBG showed increased levels of O2 and CO2 which can be explained by ventilator providing 100% oxygen to patient and patient inadequately oxygenating these past couple of days. As per Respiratory, patient's cuff was not correct and new tube needed to be placed. Because patient was having increased secretions, was on a ventilator, and cuff was not correct it was best to have patient admitted under observation with Dr. Evans consulting for tube replacement so that patient can be monitored closely. *DC/Admit/Observation/Transfer Diagnosis at time of Disposition: Tracheostomy mechanical complication - Referrals - Patient Instructions - Post Discharge Activity
[2018-02-22] MEDS ORDERED: ACETYLCYSTEINE 20% 200MG/ML 30 ML VIAL *FOR ORAL / INH USE ONLY ONE (10:29)
[2018-02-22 10:44] LABS: BASO % 0.2 % (0-2.0); HEMATOCRIT 34.8 % (32.4-45.2); HEMOGLOBIN 10.9 GM/dL (10.7-15.3); LYMPH % 7.5 % (8-40); MCH 30.6 pg (25.7-33.7); MCHC 31.2 g/dl (32.0-36.0); MEAN CELL VOLUME 97.9 fl (80-96); MEAN PLT VOLUME 9.1 fl (7.5-11.1); MONO % 5.2 % (3.8-10.2); NEUT % 87.1 % (42.8-82.8); PLATELET COUNT 203 K/MM3 (134-434); RBC 3.55 M/mm3 (3.60-5.2); RDW 14.8 % (11.6-15.6); WHITE BLOOD COUNT 11.5 K/mm3 (4.0-10.0)
[2018-02-22 10:51] LABS: INR 1.1 (0.82-1.09); PROTHROMBIN TIME (PATIENT) 12.4 SEC (9.7-13.0)
[2018-02-22 10:53] LABS: ACTIVATED PTT 23.2 SECONDS (25.2-36.5)
--- NOTE | 2018-02-22 10:53 | PDOC ---
Attending Attestation - HPI HPI: 02/22/18 11:16 The patient is a 57 year old female with a history of substance abuse, hypertension, throat cancer (s/p tracheostomy), HIV, who presents to the emergency department today s/p hospitalization last week for pneumonia from [facility] for shortness of breath. She presents today saturating below baseline at 60%. The patient reports that her tube is clogged, due to water accidentally entering the tube when she took a bath, making it difficult to breath. Patient states that a productive cough with green sputum. Denies fever, nausea, vomiting, chills, headache, dizziness. Denies chest pain, abdominal pain, back pain. Denies any urinary/bowel changes. Allergies: latex, levofloxacin, penicillins Social history: substance abuse Surgical history: tracheostomy 2007 (Shiley size 7) Family history: none reported PCP: Dr. Schneider - Medical Decision Making 02/22/18 12:15 Chest X-Ray was reviewed by Dr. Knott and over-read by Radiology. Chest: Sepsis Since the prior study of 01/11/2018, the bilateral pulmonary and pleural changes have diminished on the right and have increased slightly on the left. A new tracheostomy tube is in place. Follow-up recommended. Documentation prepared by Keerthi Sandoval, acting as medical massage therapist for Krut Knott MD. <Keerthi Sandoval - Last Filed: 02/22/18 12:15> - Resident Resident Name: Tamera,Nancy - ED Attending Attestation I have performed the following: I have examined & evaluated the patient, The case was reviewed & discussed with the resident, I agree w/resident's findings & plan, Exceptions are as noted - Physicial Exam PE: 02/22/18 16:06 Vitals: Triage Vital signs reviewed General Appearance: no acute distress, well nourished well developed, Head: Atraumatic, Eyes: Pupils equal reactive round, extraocular movement intact Neck: Supple;No Nucal rigidity trached Chest Wall: Nontender Cardiac: Regular rate and rhythym, no murmurs, no rubs, no gallops, Lungs: Coarse breath sounds Abdomen: Soft, non distended, normal bowel sounds, non tender to palpation Extremities: Full range of motion to all extremities, no cyanosis, clubbing, or edema Skin: Warm and dry, no rashes or lesions, no rash, no petechiae Neuro: AOX3; Cranial Nerves 2-12 grossly intact, Strength intact to all extremities, Sensation intact to all extremities Psych: normal mood, normal affect - Medical Decision Making 02/22/18 16:05The patient is a 57 year old female with a history of substance abuse, hypertension, throat cancer (s/p tracheostomy), HIV, who presents to the emergency department today s/p hospitalization last week for pneumonia from [facility] for shortness of breath. She presents today saturating below baseline at 60%. The patient reports that her tube is clogged, due to water accidentally entering the tube when she took a bath, making it difficult to breath. Patient states that a productive cough with green sputum. Patient suctioned placed on vent treated with duo nebs and NAC with improvement in oxygen saturation Labs chest x-ray ordered. No clear evidence of pneumonia labs within normal limits trach may need to be replaced We will observe overnight for trichomoniasis evaluation possible trach replacement transitioned to trach collar from events. <Kurt Knott - Last Filed: 02/22/18 16:12>
[2018-02-22] MEDS ORDERED: ACETYLCYSTEINE 20% 200MG/ML 4 ML VIAL *FOR ORAL / INH USE ONLY IH ONE (11:00)
[2018-02-22] MEDS ORDERED: ACETYLCYSTEINE 20% 200MG/ML 4 ML VIAL *FOR ORAL / INH USE ONLY NEB ONE (11:00)
[2018-02-22 11:01] LABS: ALBUMIN 3.1 g/dl (3.4-5.0); ALK PHOS 92 U/L (45-117); ANION GAP 6 (8-16); BILIRUBIN,TOTAL 0.4 mg/dL (0.2-1.0); BLOOD UREA NITROGEN 13 mg/dL (7-18); CALCIUM 8.4 mg/dL (8.5-10.1); CHLORIDE 102 mmol/L (98-107); CO2 34 mmol/L (21-32); CREATININE 1.2 mg/dL (0.55-1.02); GLUCOSE,RANDOM 101 mg/dL (74-106); POTASSIUM 3.7 mmol/L (3.5-5.1); SGOT/AST 17 U/L (15-37); SGPT/ALT 14 U/L (12-78); SODIUM 142 mmol/L (136-145); TOT PROT 7.3 g/dl (6.4-8.2)
[2018-02-22 11:51] LABS: ARTERIAL BLD GAS O2 SATURATION 99.3 % (90-98.9); ARTERIAL BLOOD GAS BASE EXCESS 5.3 meq/l (-2-2); ARTERIAL BLOOD GAS PCO2 55.8 mmHg (35-45); ARTERIAL BLOOD GAS pH 7.37 (7.35-7.45); CARBOXYHEMOGLOBIN 1.8 gm% (0.5-2.0)
[2018-02-22 11:54] LABS: ALLENS TEST POSITIVE
--- NOTE | 2018-02-22 13:34 | EKG ---
Test Reason : Blood Pressure : / mmHG Vent. Rate : 097 BPM Atrial Rate : 097 BPM P-R Int : 148 ms QRS Dur : 084 ms QT Int : 354 ms P-R-T Axes : 057 -01 074 degrees QTc Int : 449 ms SINUS RHYTHM WITH FREQUENT PREMATURE VENTRICULAR COMPLEXES RIGHT ATRIAL ENLARGEMENT POSSIBLE ANTERIOR INFARCT , AGE UNDETERMINED ABNORMAL ECG WHEN COMPARED WITH ECG OF 08-JAN-2018 17:48, NO SIGNIFICANT CHANGE WAS FOUND Confirmed by RAFAEL PEDERSON, OUSMANE ([id number]) on 02/22/2018 1:33:47 PM Referred By: Confirmed By:OUSMANE HALL MD
--- NOTE | 2018-02-22 14:56 | CON.PULM ---
Consult Consult Specialty:: PULM/CCM Referred by:: ER Reason for Consultation:: SOB - History of Present Illness Chief Complaint: SOB History of Present Illness: 57 F, past history of substance abuse, hypertension, throat cancer, s/p tracheostomy since 2006 (not on mechanical ventilation), and HIV. Presents to the emergency department today for SOB as her Trach felt clogged after she reported water went into the TRach while she was showering. Of note, she was recently admitted for PNA. No fever or chills. No hemoptysis. Patient currently on mechanical ventilation, but not ventilating as she has a cuffless Trach. CXR: increase in Pulm vascular congestion / effusion on the left. - History Source History Provided By: Patient, Medical Record Limitations to Obtaining History: No Limitations - Past Medical History Cardio/Vascular: Yes: HTN Pulmonary: Yes: Asthma, COPD, Other (Trach since 2006 ) Infectious Disease: Yes: HIV - Alcohol/Substance Use Hx Alcohol Use: No - Smoking History Smoking history: Former smoker Have you smoked in the past 12 months: No Aproximately how many cigarettes per day: 0 If you are a former smoker, when did you quit?: 2005 Home Medications - Allergies Allergies/Adverse Reactions: Allergies Allergy/AdvReac Type Severity Reaction Status Date / Time latex Allergy Verified 02/22/18 12:39 levofloxacin [From Levaquin] Allergy Verified 02/22/18 12:39 Penicillins Allergy Verified 02/22/18 12:39 - Home Medications Home Medications: Ambulatory Orders Levothyroxine [Synthroid -] 112 mcg PO DAILY 01/09/18 Methadone [Dolophine -] 80 mg PO DAILY 01/09/18 Furosemide [Lasix] 20 mg PO DAILY #30 tablet 01/10/18 Alprazolam [Xanax] 0.25 mg PO DAILY PRN #16 tablet MDD 1/2 tablet 01/18/18 Mirtazapine [Remeron -] 30 mg PO DAILY #30 tablet 01/18/18 Quetiapine Fumarate [Seroquel -] 25 mg PO HS #30 tablet 01/18/18 Sertraline HCl [Zoloft -] 50 mg PO DAILY #30 tablet 01/18/18 Zolpidem Tartrate [Ambien] 5 mg PO HS #30 tablet MDD 1 01/18/18 Abacavir/Dolutegravir/Lamivudi [Triumeq Tablet] 1 each PO DAILY #30 tablet 02/13 Amlodipine Besylate [Norvasc -] 5 mg PO DAILY #30 tablet 02/13/18 Metoprolol Succinate [Toprol Xl] 25 mg PO DAILY #30 tab.er.24h 02/13/18 Multivitamin,Ther and Minerals [Vitamin and Minerals] 1 each PO DAILY #30 tablet 02/13/18 Family Disease History - Family Disease History Family Disease History: CA: Sister (breast ca), Respiratory: Daughter (asthma - d.), Other: Mother (Alzheimers) Review of Systems - Review of Systems Constitutional: denies: Chills, Fever, Malaise, Night Sweats, Weakness Eyes: reports: No Symptoms HENT: reports: Other (Trach) Neck: reports: No Symptoms Cardiovascular: reports: No Symptoms Respiratory: reports: Cough, SOB. denies: Hemoptysis, Snoring, Wheezing Gastrointestinal: reports: No Symptoms Genitourinary: reports: No Symptoms Breasts: reports: No Symptoms Reported Musculoskeletal: reports: No Symptoms Integumentary: reports: No Symptoms Neurological: reports: No Symptoms Endocrine: reports: No Symptoms Hematology/Lymphatic: reports: No Symptoms Psychiatric: reports: No Symptoms Physical Exam Vital Sings: Vital Signs Temperature 97.5 F L 02/22/18 10:30 Pulse Rate 73 02/22/18 12:20 Respiratory Rate 14 02/22/18 12:20 Blood Pressure 99/71 02/22/18 12:20 O2 Sat by Pulse Oximetry (%) 100 02/22/18 12:20 Constitutional: Yes: No Distress, Calm Eyes: Yes: Conjunctiva Clear, Ptosis HENT: Yes: Atraumatic, Normocephalic, Other (TRach intact ) Neck: Yes: Other (Trach intact ) Cardiovascular: Yes: Regular Rate and Rhythm Respiratory: Yes: Cough, Diminished, Mechanically Ventilated, Rales, Rhonchi. No: Accessory Muscle Use, Stridor, Tachypnea, Wheezes ...Breath Sounds: RUL Absent ...Inspection: Yes: WNL ...Clubbing: No Gastrointestinal: Yes: Normal Bowel Sounds, Soft Renal/: Yes: WNL Musculoskeletal: Yes: WNL Extremities: Yes: WNL Edema: No Peripheral Pulses WNL: Yes Integumentary: Yes: WNL Neurological: Yes: WNL, Alert, Oriented ...Motor Strength: WNL Psychiatric: Yes: WNL, Alert, Oriented Labs: CBC, BMP 02/22/18 10:21 02/22/18 10:21 ABG Results ABG pH 7.37 (7.35-7.45) 02/22/18 11:40 ABG pCO2 at Pt Temp 55.8 mmHg (35-45) H 02/22/18 11:40 ABG pO2 at Pt Temp 145.0 mmHg (80-100) H D 02/22/18 11:40 ABG HCO3 31.3 meq/L (22-26) H 02/22/18 11:40 ABG O2 Sat (Measured) 99.3 % (90-98.9) H 02/22/18 11:40 ABG O2 Content 14.9 % vol (15-22) L 02/22/18 11:40 ABG Base Excess 5.3 meq/l (-2-2) H 02/22/18 11:40 Imaging - Results Chest X-ray: Report Reviewed, Image Reviewed Problem List - Problems (1) HIV (human immunodeficiency virus infection) Code(s): Z21 - ASYMPTOMATIC HUMAN IMMUNODEFICIENCY VIRUS INFECTION STATUS (2) Hypertension Code(s): I10 - ESSENTIAL (PRIMARY) HYPERTENSION Qualifiers: Hypertension type: essential hypertension Qualified Code(s): I10 - Essential (primary) hypertension (3) Hypothyroidism Code(s): E03.9 - HYPOTHYROIDISM, UNSPECIFIED Qualifiers: Hypothyroidism type: unspecified Qualified Code(s): E03.9 - Hypothyroidism , unspecified (4) Tracheostomy in place Code(s): Z98.89 - OTHER SPECIFIED POSTPROCEDURAL STATES * DO NOT USE * (5) Acute on chronic respiratory failure with hypoxia and hypercapnia Code(s): J96.21 - ACUTE AND CHRONIC RESPIRATORY FAILURE WITH HYPOXIA; J96.22 - ACUTE AND CHRONIC RESPIRATORY FAILURE WITH HYPERCAPNIA (6) Decreased GFR Code(s): R94.4 - ABNORMAL RESULTS OF KIDNEY FUNCTION STUDIES (7) Pleural effusion Code(s): J90 - PLEURAL EFFUSION, NOT ELSEWHERE CLASSIFIED (8) Asthma Code(s): J45.909 - UNSPECIFIED ASTHMA, UNCOMPLICATED (9) COPD (chronic obstructive pulmonary disease) Code(s): J44.9 - CHRONIC OBSTRUCTIVE PULMONARY DISEASE, UNSPECIFIED Qualifiers: COPD type: unspecified COPD Qualified Code(s): J44.9 - Chronic obstructive pulmonary disease, unspecified (10) Elevated serum creatinine Code(s): R79.89 - OTHER SPECIFIED ABNORMAL FINDINGS OF BLOOD CHEMISTRY Assessment/Plan Trial of Lasix Would monitor off ABX Can try Trach collar: and monitor saturation: if concerned about status - > check ABG to R/O hypercapnia Do not think she requires a change to a cuffed Trach at this point as she appears stable Follow CXR in AM VTE prophylaxis Will follow: reasonable for Observation overnight Thank you. Dr Evans
[2018-02-22] MEDS ORDERED: FUROSEMIDE 40 MG/4 ML INJECTABLE VIAL IVPUSH ONE ×2 (15:58→18:45)
--- NOTE | 2018-02-22 16:18 | HP ---
CHIEF COMPLAINT: SOB PCP: Diamante Schneider HISTORY OF PRESENT ILLNESS: The patient is a 57 yo f w/ PMH HTN, HIV on HAART, Laryngeal cancer s/p tracheotomy 2006 who presents to the ED from home c/o progressive SOB for the past 3 days. The patient states that she has noticed increased production of green tinged sputum since Monday. The patient associates this increased sputum with a progressive SOB as well. The day prior to admission, the patient was bathing when she accidentally splashed water into her tracheostomy, causing her to cough and become more short of breath. At this point, the patient sought medical attention. In the ED, the patient was noted to be hypoxic to the 50's-70's. She was suctioned and placed on mechanical ventilation, after which her saturations returned to 100%. Patient denies chest pain, fevers, chills, sick contacts, abdominal pain. ER course was notable for: (1) CXR showing mild pleural effusions b/l (2) ABG showing respiratory acidosis w/ CO2 retention (3) PAST MEDICAL HISTORY: see HPI PAST SURGICAL HISTORY: Tracheotomy 2006 Social History: Smoking: former smoker, quit in 2005 Alcohol: denies Drugs: former substance abuser, underwent rehab and currently on methadone Allergies latex Allergy (Verified 02/22/18 12:39) levofloxacin [From Levaquin] Allergy (Verified 02/22/18 12:39) Penicillins Allergy (Verified 02/22/18 12:39) HOME MEDICATIONS: Home Medications Medication Instructions Recorded Levothyroxine [Synthroid -] 112 mcg PO DAILY 01/09/18 Methadone [Dolophine -] 80 mg PO DAILY 01/09/18 Furosemide [Lasix] 20 mg PO DAILY #30 tablet 01/10/18 Alprazolam [Xanax] 0.25 mg PO DAILY PRN #16 tablet 01/18/18 MDD 1/2 tablet Mirtazapine [Remeron -] 30 mg PO DAILY #30 tablet 01/18/18 Quetiapine Fumarate [Seroquel -] 25 mg PO HS #30 tablet 01/18/18 Sertraline HCl [Zoloft -] 50 mg PO DAILY #30 tablet 01/18/18 Zolpidem Tartrate [Ambien] 5 mg PO HS #30 tablet MDD 1 01/18/18 Abacavir/Dolutegravir/Lamivudi 1 each PO DAILY #30 tablet 02/13/18 [Triumeq Tablet] Amlodipine Besylate [Norvasc -] 5 mg PO DAILY #30 tablet 02/13/18 Metoprolol Succinate [Toprol Xl] 25 mg PO DAILY #30 tab.er.24h 02/13/18 Multivitamin,Ther and Minerals 1 each PO DAILY #30 tablet 02/13/18 [Vitamin and Minerals] REVIEW OF SYSTEMS CONSTITUTIONAL: Absent: fever, chills, diaphoresis, generalized weakness, malaise, loss of appetite, weight change HEENT: Absent: rhinorrhea, nasal congestion, throat pain, throat swelling, difficulty swallowing, mouth swelling, ear pain, eye pain, visual changes CARDIOVASCULAR: Absent: chest pain, syncope, palpitations, irregular heart rate, lightheadedness , peripheral edema RESPIRATORY: Absent: orthopnea, wheezing, stridor, hemoptysis GASTROINTESTINAL: Absent: abdominal pain, abdominal distension, nausea, vomiting, diarrhea, constipation, melena, hematochezia GENITOURINARY: Absent: dysuria, frequency, urgency, hesitancy, hematuria, flank pain, genital pain MUSCULOSKELETAL: Absent: myalgia, arthralgia, joint swelling, back pain, neck pain SKIN: Absent: rash, itching, pallor HEMATOLOGIC/IMMUNOLOGIC: Absent: easy bleeding, easy bruising, lymphadenopathy, frequent infections ENDOCRINE: Absent: unexplained weight gain, unexplained weight loss, heat intolerance, cold intolerance NEUROLOGIC: Absent: headache, focal weakness or paresthesias, dizziness, unsteady gait, seizure, mental status changes, bladder or bowel incontinence PSYCHIATRIC: Absent: anxiety, depression, suicidal or homicidal ideation, hallucinations. PHYSICAL EXAMINATION Vital Signs - 24 hr 02/22/18 02/22/18 02/22/18 09:30 09:45 10:20 Temperature 99.3 F Pulse Rate 105 H Pulse Rate [ 98 H 91 H Radial] Respiratory 22 20 Rate Blood Pressure 131/86 Blood Pressure 136/82 109/82 [Right Arm] O2 Sat by Pulse 56 L 63 L 100 Oximetry (%) 02/22/18 02/22/18 02/22/18 10:30 10:34 11:00 Temperature 97.5 F L Pulse Rate 86 Pulse Rate [ 80 Radial] Respiratory 22 14 16 Rate Blood Pressure Blood Pressure 83/59 [Right Arm] O2 Sat by Pulse 100 100 Oximetry (%) 02/22/18 02/22/18 02/22/18 11:20 11:40 12:20 Temperature Pulse Rate Pulse Rate [ 81 79 73 Radial] Respiratory 14 20 14 Rate Blood Pressure Blood Pressure 97/68 98/70 99/71 [Right Arm] O2 Sat by Pulse 100 100 100 Oximetry (%) 02/22/18 02/22/18 02/22/18 14:00 15:25 15:36 Temperature Pulse Rate Pulse Rate [ 74 77 Radial] Respiratory 16 16 Rate Blood Pressure Blood Pressure 106/80 123/84 [Right Arm] O2 Sat by Pulse 99 92 L 92 L Oximetry (%) GENERAL: Awake, alert, and fully oriented, in no acute distress. HEAD: Normal with no signs of trauma. EYES: Pupils equal, round and reactive to light, extraocular movements intact, sclera anicteric, conjunctiva clear. No lid lag. EARS, NOSE, THROAT: Increased white excretions noted in the oropharynx. Moist mucous membranes. NECK: Normal range of motion, supple without lymphadenopathy, JVD, or masses. LUNGS: Breath sounds equal, Crackles noted at the bases b/l. No accessory muscle use. HEART: Regular rate and rhythm, normal S1 and S2 without murmur, rub or gallop. ABDOMEN: Soft, nontender, not distended, normoactive bowel sounds, no guarding, no rebound, no masses. No hepatomegaly or splenomegaly. LOWER EXTREMITIES: 2+ pulses, warm, well-perfused. No calf tenderness. No peripheral edema. NEUROLOGICAL: Cranial nerves II-XII intact. Normal speech. Strength 5/5 in all 4 extremities b/l. PSYCHIATRIC: Cooperative. Good eye contact. Appropriate mood and affect. SKIN: Warm, dry, normal turgor, no rashes or lesions noted, normal capillary refill. Laboratory Results - last 24 hr 02/22/18 02/22/18 02/22/18 10:20 10:21 10:21 WBC RBC Hgb Hct MCV MCH MCHC RDW Plt Count MPV Absolute Neuts (auto) Neutrophils % Lymphocytes % Monocytes % Eosinophils % Basophils % Nucleated RBC % PT with INR INR PTT (Actin FS) Puncture Site ABG pH ABG pCO2 at Pt Temp ABG pO2 at Pt Temp ABG HCO3 ABG O2 Sat (Measured) ABG O2 Content ABG Base Excess Kenrick Test Carboxyhemoglobin Methemoglobin O2 Delivery Device Oxygen Flow Rate Vent Mode Vent Rate Mechanical Rate PEEP Pressure Support Vent Sodium 142 Potassium 3.7 Chloride 102 Carbon Dioxide 34 H Anion Gap 6 L BUN 13 Creatinine 1.2 H Creat Clearance w eGFR 46.47 Random Glucose 101 Lactic Acid 1.2 Calcium 8.4 L Total Bilirubin 0.4 AST 17 ALT 14 Alkaline Phosphatase 92 Troponin I < 0.02 Total Protein 7.3 Albumin 3.1 L 02/22/18 02/22/18 02/22/18 10:21 10:21 11:40 WBC 11.5 H RBC 3.55 L Hgb 10.9 Hct 34.8 MCV 97.9 H MCH 30.6 MCHC 31.2 L RDW 14.8 Plt Count 203 MPV 9.1 D Absolute Neuts (auto) 10.0 Neutrophils % 87.1 H D Lymphocytes % 7.5 L D Monocytes % 5.2 Eosinophils % 0.0 D Basophils % 0.2 Nucleated RBC % 0 PT with INR 12.40 INR 1.10 PTT (Actin FS) 23.2 L Puncture Site Left radial ABG pH 7.37 ABG pCO2 at Pt Temp 55.8 H ABG pO2 at Pt Temp 145.0 H D ABG HCO3 31.3 H ABG O2 Sat (Measured) 99.3 H ABG O2 Content 14.9 L ABG Base Excess 5.3 H Kenrick Test Positive Carboxyhemoglobin 1.8 Methemoglobin 1.4 O2 Delivery Device Mech vent Oxygen Flow Rate 100% Vent Mode A/c Vent Rate 14 Mechanical Rate Yes PEEP 5.0 Pressure Support Vent 350 Sodium Potassium Chloride Carbon Dioxide Anion Gap BUN Creatinine Creat Clearance w eGFR Random Glucose Lactic Acid Calcium Total Bilirubin AST ALT Alkaline Phosphatase Troponin I Total Protein Albumin ASSESSMENT/PLAN: The patient is a 57 yo f w/ PMH HTN, HIV, COPD, laryngeal Ca s/p trach who comes into the ED c/o progressive SOB and water in her stoma. #Acute hypoxic respiratory failure likely 2/2 mucous plugging vs pneumonitis 2/ 2 water exposure -cxr shows pleural effusions b/l -will order 20mg Lasix IV -RPT CXR in AM -frequent suctioning -d/c ventilator; patient has cuffless trach in place and is saturating well on room air -placed patient on 50% venturi mask -Pulm consult; discussed the case w/ Dr. Evans -patient alva has mucous plugging vs. pneumonitis 2/2 water exposure -observe off ABX -CXR shows pleural effusions b/l -b/l LE doppler r/o DVT #HTN -holding antihypertensives as pt BP borderline hypotensive in ED #HIV -resume home HAART #FEN -no fluids indicated -lytes WNL -sodium controlled diet #Prophylaxsis -Heparin SQ 5K units TID #Dispo -admit med surg -home medications verified with patient. Visit type - Emergency Visit Emergency Visit: Yes ED Registration Date: 02/22/18 Care time: The patient presented to the Emergency Department on the above date and was hospitalized for further evaluation of their emergent condition. - New Patient This patient is new to me today: Yes Date on this admission: 02/22/18 - Critical Care Critical Care patient: No
--- NOTE | 2018-02-22 16:25 | HP ---
CHIEF COMPLAINT: "SOB" PCP: HISTORY OF PRESENT ILLNESS: Patient is a 57 y/o female with a past medical of HIV on retrovirals, HTN, COPD , laryngeal cancer s/p tacheotomy (2006), and substance abuse who presented to the ED because she was SOB. Patient has been having increased sputum production since Monday. She is able to suction on her own and has noticed the sputum being green tinged. Patient reports she was in the shower and some water had gotten into her tracheostomy. She subsequently developed SOB. She denies any recent sick contacts. She denies fevers, chills, headache, chest pain, or cough. Patient in the ED was found to have an O2 saturation in the 50's. She was suctioned and put on a ventilator where her O2 saturation malia to the 100' s. Her vitals remained stable and because of her cuffless trach she was breathing without the assistance of the ventilator. Patient was seen with Dr. Evans who stated the ventilator could be removed and patient was put on a venti mask 50%. Patient has no other complaints. ER course was notable for: (1) CXR (2) EKG (3) PAST MEDICAL HISTORY: HIV, HTN, throat cancer, substance abuse, COPD PAST SURGICAL HISTORY: tracheostomy (2006) Social History: Smoking: former smoker, quit 2005 Alcohol: denies Drugs: former substance abuser, currently on methadone Family History: Allergies latex Allergy (Verified 02/22/18 12:39) levofloxacin [From Levaquin] Allergy (Verified 02/22/18 12:39) Penicillins Allergy (Verified 02/22/18 12:39) HOME MEDICATIONS: Home Medications Medication Instructions Recorded Levothyroxine [Synthroid -] 112 mcg PO DAILY 01/09/18 Methadone [Dolophine -] 80 mg PO DAILY 01/09/18 Furosemide [Lasix] 20 mg PO DAILY #30 tablet 01/10/18 Alprazolam [Xanax] 0.25 mg PO DAILY PRN #16 tablet 01/18/18 MDD 1/2 tablet Mirtazapine [Remeron -] 30 mg PO DAILY #30 tablet 01/18/18 Quetiapine Fumarate [Seroquel -] 25 mg PO HS #30 tablet 01/18/18 Sertraline HCl [Zoloft -] 50 mg PO DAILY #30 tablet 01/18/18 Zolpidem Tartrate [Ambien] 5 mg PO HS #30 tablet MDD 1 01/18/18 Abacavir/Dolutegravir/Lamivudi 1 each PO DAILY #30 tablet 02/13/18 [Triumeq Tablet] Amlodipine Besylate [Norvasc -] 5 mg PO DAILY #30 tablet 02/13/18 Metoprolol Succinate [Toprol Xl] 25 mg PO DAILY #30 tab.er.24h 02/13/18 Multivitamin,Ther and Minerals 1 each PO DAILY #30 tablet 02/13/18 [Vitamin and Minerals] REVIEW OF SYSTEMS CONSTITUTIONAL: Absent: fever, chills, diaphoresis, generalized weakness, malaise, loss of appetite HEENT: increased sputum production Absent: rhinorrhea, nasal congestion, throat pain, throat swelling, difficulty swallowing, mouth swelling CARDIOVASCULAR: Absent: chest pain, syncope, palpitations, irregular heart rate, lightheadedness RESPIRATORY: shortness of breath, increased sputum production Absent: cough, with exertion, orthopnea, wheezing, stridor, hemoptysis GASTROINTESTINAL: Absent: abdominal pain, abdominal distension, nausea, vomiting, diarrhea, constipation GENITOURINARY: Absent: dysuria, frequency, urgency, hesitancy, hematuria MUSCULOSKELETAL: Absent: myalgia, arthralgia, joint swelling, back pain, neck pain SKIN: Absent: rash, itching, pallor NEUROLOGIC: Absent: headache, focal weakness or paresthesias, dizziness PHYSICAL EXAMINATION Vital Signs - 24 hr 02/22/18 02/22/18 02/22/18 09:30 09:45 10:20 Temperature 99.3 F Pulse Rate 105 H Pulse Rate [ 98 H 91 H Radial] Respiratory 22 20 Rate Blood Pressure 131/86 Blood Pressure 136/82 109/82 [Right Arm] O2 Sat by Pulse 56 L 63 L 100 Oximetry (%) 02/22/18 02/22/18 02/22/18 10:30 10:34 11:00 Temperature 97.5 F L Pulse Rate 86 Pulse Rate [ 80 Radial] Respiratory 22 14 16 Rate Blood Pressure Blood Pressure 83/59 [Right Arm] O2 Sat by Pulse 100 100 Oximetry (%) 02/22/18 02/22/18 02/22/18 11:20 11:40 12:20 Temperature Pulse Rate Pulse Rate [ 81 79 73 Radial] Respiratory 14 20 14 Rate Blood Pressure Blood Pressure 97/68 98/70 99/71 [Right Arm] O2 Sat by Pulse 100 100 100 Oximetry (%) 02/22/18 02/22/18 02/22/18 14:00 15:25 15:36 Temperature Pulse Rate Pulse Rate [ 74 77 Radial] Respiratory 16 16 Rate Blood Pressure Blood Pressure 106/80 123/84 [Right Arm] O2 Sat by Pulse 99 92 L 92 L Oximetry (%) GENERAL: Awake, alert, and fully oriented, in no acute distress. HEAD: Normal with no signs of trauma. EYES: Pupils equal, round and reactive to light, extraocular movements intact, sclera anicteric, conjunctiva clear EARS, NOSE, THROAT: Oropharynx clear without exudates. Moist mucous membranes. dentures in place NECK: Normal range of motion LUNGS: Breath sounds equal,crackles bilaterally at the bases. No wheezes. No accessory muscle use. HEART: Regular rate and rhythm, normal S1 and S2 without murmur, rub or gallop. ABDOMEN: Soft, nontender, not distended, normoactive bowel sounds, no guarding, no rebound, no masses. MUSCULOSKELETAL: Normal range of motion at all joints. UPPER EXTREMITIES: 2+ pulses, warm, well-perfused. No cyanosis. LOWER EXTREMITIES: 2+ pulses, warm, well-perfused. No calf tenderness. No peripheral edema. NEUROLOGICAL: Cranial nerves II-XII intact. PSYCHIATRIC: flat affect SKIN: Warm, dry, normal turgor, no rashes or lesions noted, normal capillary refill. Laboratory Results - last 24 hr 02/22/18 02/22/18 02/22/18 10:20 10:21 10:21 WBC RBC Hgb Hct MCV MCH MCHC RDW Plt Count MPV Absolute Neuts (auto) Neutrophils % Lymphocytes % Monocytes % Eosinophils % Basophils % Nucleated RBC % PT with INR INR PTT (Actin FS) Puncture Site ABG pH ABG pCO2 at Pt Temp ABG pO2 at Pt Temp ABG HCO3 ABG O2 Sat (Measured) ABG O2 Content ABG Base Excess Kenrick Test Carboxyhemoglobin Methemoglobin O2 Delivery Device Oxygen Flow Rate Vent Mode Vent Rate Mechanical Rate PEEP Pressure Support Vent Sodium 142 Potassium 3.7 Chloride 102 Carbon Dioxide 34 H Anion Gap 6 L BUN 13 Creatinine 1.2 H Creat Clearance w eGFR 46.47 Random Glucose 101 Lactic Acid 1.2 Calcium 8.4 L Total Bilirubin 0.4 AST 17 ALT 14 Alkaline Phosphatase 92 Troponin I < 0.02 Total Protein 7.3 Albumin 3.1 L 02/22/18 02/22/18 02/22/18 10:21 10:21 11:40 WBC 11.5 H RBC 3.55 L Hgb 10.9 Hct 34.8 MCV 97.9 H MCH 30.6 MCHC 31.2 L RDW 14.8 Plt Count 203 MPV 9.1 D Absolute Neuts (auto) 10.0 Neutrophils % 87.1 H D Lymphocytes % 7.5 L D Monocytes % 5.2 Eosinophils % 0.0 D Basophils % 0.2 Nucleated RBC % 0 PT with INR 12.40 INR 1.10 PTT (Actin FS) 23.2 L Puncture Site Left radial ABG pH 7.37 ABG pCO2 at Pt Temp 55.8 H ABG pO2 at Pt Temp 145.0 H D ABG HCO3 31.3 H ABG O2 Sat (Measured) 99.3 H ABG O2 Content 14.9 L ABG Base Excess 5.3 H Kenrick Test Positive Carboxyhemoglobin 1.8 Methemoglobin 1.4 O2 Delivery Device Mec vent Oxygen Flow Rate 100% Vent Mode A/c Vent Rate 14 Mechanical Rate Yes PEEP 5.0 Pressure Support Vent 350 Sodium Potassium Chloride Carbon Dioxide Anion Gap BUN Creatinine Creat Clearance w eGFR Random Glucose Lactic Acid Calcium Total Bilirubin AST ALT Alkaline Phosphatase Troponin I Total Protein Albumin ASSESSMENT/PLAN: Patient is a 57 y/o female with a past medical of HIV on retrovirals, HTN, COPD , laryngeal cancer s/p tacheotomy (2006), and substance abuse who is here for acute respiratory failure 2/2 to mucus plugging vs pneumonitis 2/2 to water exposure. #Acute respiratory failure 2/2 mucus plugging vs pnemonitis 2/2 to water exposure - Patient currently on venti mask 50% - repeat CXR in the morning - lasix 20 mg IV - lower extremity US r/o DVT - patient O2% stable - f/u cultures - ABG: pH: 7.37 - CXR: congestion BL, pleural effusion in R LL # HTN - hold amlodipine 5mg for now as patient borderline hypotensive in ED - continue metoprolol - BP 110/80 #GUSTAVO - monitor BUN/ CR #HIV - continue Triumeq #Hypothyroidism - continue levothyroxine 112 mcg #Substance abuse - methadone 80 mg since 1986 #Anxiety - continue Zoloft, seroquel, remeron - hold xanax, hold ambien #DVT ppx: heparin SQ Dispo: Visit type - Emergency Visit Emergency Visit: Yes ED Registration Date: 02/22/18 Care time: The patient presented to the Emergency Department on the above date and was hospitalized for further evaluation of their emergent condition. - New Patient This patient is new to me today: Yes Date on this admission: 02/22/18 - Critical Care Critical Care patient: No Hospitalist Screening - Colonoscopy Questionnaire Colonoscopy Questionnaire: Colonoscopy Questionnaire - Patient: 50 - 75 years old and never had a screening colonoscopy: Unknown History of colon or rectal polyps, or CA: Unknown History of IBD, Crohn's disease or UC: Unknown History of abdominal radiation therapy as a child: Unknown - Relative: 1 with colon or rectal CA, or polyps at age 60 or younger: Unknown Colon or rectal CA diagnosed at age 45 or younger: Unknown Multiple relatives with colon or rectal CA: Unknown - Outcome: Screening Result: Negative Screen
--- NOTE | 2018-02-22 19:03 | PN ---
Teaching Attending Note Name of Resident: Poppy Lino ATTENDING PHYSICIAN STATEMENT I saw and evaluated the patient. I reviewed the resident's note and discussed the case with the resident. I agree with the resident's findings and plan as documented. SUBJECTIVE: CC: SOB HPI: Unfortunate pleasant 57 y/o lady with h/o throat cancer ( unclear type ) s/ p S/chemo /Rtx in 2006,HIV , substance abuse, COPD , HTN, HLP, who presented with sudden onset SOB. while she was taking a bath she has water go in her trach and started feeling SOB right away. she had reported increased secretions in past feew days with green sputum, but no sick contact. no fever or chills. no CP . In ER , she had cxray and was laced shortly on mechanical ventilation , which was then switched to a trach mask . OBJECTIVE: NAd , Awake , alert, cooperative . Trach mask on . occasional cough . suctioned with clear blood sputum out MMM. CV: RRR, Lungs: good air entry, no wheezes. decreased breath sounds at bases. Abd; obese, soft, NT, ND , NL BS Ext : no edema over Upper or lower ext ASSESSMENT AND PLAN: Unfortunate pleasant 57 y/o lady with h/o throat cancer ( unclear type ) s/p S/ chemo /Rtx in 2006, substance abuse,HIV, COPD , HTN, HLP, who presented with sudden onset SOB, she was fond to be hypoxic 1- Acute onset hypoxic and hypercapnic respiratory failure : likely due to water through trach causing pneumonitis , No evidence of ARDS. possible mucus plugging contributing mild hypercapnia is better than her previous presentations. - cont O2 supplementation - repeat cxray . - although has slight leukocytosis , no actual infiltrate on xray or fever . will monitor off Abx - due to pleural efusion on R , she received IV lasix . will ocnt her home dose lasix . No clear hx of heart failure, last echo in withNL EF, MOd MR, TR and pulmonary hypertension - if condition does not improve, then might use a short course of steroids given her increased sputum production in past feew days - give Duo-Nebs , and acytel cystein - cxray in am - unlikely has PE , but will check LE doppler 2- h/o Substance abuse: cont methadone . 3- h/o HIV: cont meds 4- h/o HT: cont norvasc and lopressor . DVT PX: lovenox
[2018-02-22] MEDS ORDERED: ACETYLCYSTEINE 20% 200MG/ML 30 ML VIAL *FOR ORAL / INH USE ONLY NEB SCH (20:00)
[2018-02-22] MEDS: MIRTAZAPINE 15 MG TABLET (FP) PO SCH (21:59)
[2018-02-22] MEDS: QUEtiapine FUMARATE 25 MG TABLET (FP) PO SCH (21:59)
[2018-02-22] MEDS ORDERED: HEPARIN NA (PORCINE) 5,000 UNITS/ML 1ML VIAL SQ SCH (22:00)
[2018-02-22] MEDS ORDERED: MELATONIN 5 MG TABLETS PO ONE (22:19)
[2018-02-23] MEDS ORDERED: METHADONE HCL 40 MG DISPERSABLE TABLET PO SCH ×2 (06:00→08:44)
[2018-02-23] MEDS ORDERED: PT OWN MED DRAWER 7, Y5N ONE ×2 (06:06→10:58)
[2018-02-23] MEDS: LEVOTHYROXINE NA 112 MCG TABLET (FP) PO SCH (06:15)
[2018-02-23] MEDS: ALBUTEROL SO4 0.083% IH SOL 2.5 MG/3 ML VIAL.NEB. NEB PRN ×4 (07:25→21:35)
[2018-02-23] MEDS: ACETYLCYSTEINE 20% 200MG/ML 4 ML VIAL *FOR ORAL / INH USE ONLY NEB SCH ×4 (07:25→21:35)
[2018-02-23 08:23] LABS: HEMATOCRIT 34.4 % (32.4-45.2); MCH 31.4 pg (25.7-33.7); MEAN CELL VOLUME 97.9 fl (80-96); MEAN PLT VOLUME 8.8 fl (7.5-11.1); PLATELET COUNT 197 K/MM3 (134-434); RBC 3.51 M/mm3 (3.60-5.2); RDW 15.1 % (11.6-15.6); WHITE BLOOD COUNT 7.9 K/mm3 (4.0-10.0)
[2018-02-23 08:45] LABS: ALBUMIN 2.9 g/dl (3.4-5.0); ANION GAP 6 (8-16); BLOOD UREA NITROGEN 11 mg/dL (7-18); CALCIUM 8.6 mg/dL (8.5-10.1); CHLORIDE 99 mmol/L (98-107); CO2 38 mmol/L (21-32); CREATININE 0.9 mg/dL (0.55-1.02); GLUCOSE,RANDOM 87 mg/dL (74-106); MAGNESIUM 1.8 mg/dL (1.8-2.4); PHOSPHOROUS 3.2 mg/dL (2.5-4.9); POTASSIUM 3.3 mmol/L (3.5-5.1); SGOT/AST 16 U/L (15-37); SGPT/ALT 12 U/L (12-78); SODIUM 143 mmol/L (136-145)
[2018-02-23 08:47] LABS: ALK PHOS 81 U/L (45-117); BILIRUBIN,TOTAL 0.3 mg/dL (0.2-1.0); TOT PROT 6.9 g/dl (6.4-8.2)
[2018-02-23] MEDS ORDERED: FUROSEMIDE 20 MG TABLET (FP) PO SCH (10:00)
[2018-02-23] MEDS: SERTRALINE HCL 50 MG TABLET (FP) PO SCH (11:03)
[2018-02-23] MEDS: metoPROLOL SUCCINATE 25 MG TAB.SR.24H (FP) PO SCH (11:03)
[2018-02-23] MEDS: MULTIVITAMINS THER W-MINERALS COMBO TABLET (FP) PO SCH (11:03)
[2018-02-23] MEDS: ENOXAPARIN NA (PORCINE) 40 MG/0.4 ML DISP.SYRIN SQ SCH (11:03)
[2018-02-23] MEDS: ABACAVIR SULFATE 300 MG TABLET PO SCH (11:04)
[2018-02-23] MEDS: lamiVUDine 150 MG TABLET PO SCH (11:04)
[2018-02-23] MEDS: DOLUTEGRAVIR SODIUM 50 MG TABLET PO SCH (11:05)
[2018-02-23] MEDS: METHADONE HCL 40 MG DISPERSABLE TABLET PO SCH (12:35)
[2018-02-23] MEDS ORDERED: POTASSIUM CHLORIDE TABS 20 MEQ TABLET.ER (FP) PO ONE (13:00)
[2018-02-23 13:11] VITALS: BMI 33.6
--- NOTE | 2018-02-23 14:20 | PN ---
Progress Note (short form) - Note Progress Note: PULMONARY SUBJECTIVE IMPROVEMENT VSS/AFEBRILE AWAKE/ALERT ANICTERIC SCATTERTED CRACKLES S1S2 BS+ NO EDEMA LABS/MEDS/NOTES/IMAGES CXR congestive changes continue (1) HIV (human immunodeficiency virus infection) Code(s): Z21 - ASYMPTOMATIC HUMAN IMMUNODEFICIENCY VIRUS INFECTION STATUS (2) Hypertension Code(s): I10 - ESSENTIAL (PRIMARY) HYPERTENSION Qualifiers: Hypertension type: essential hypertension Qualified Code(s): I10 - Essential (primary) hypertension (3) Hypothyroidism Code(s): E03.9 - HYPOTHYROIDISM, UNSPECIFIED Qualifiers: Hypothyroidism type: unspecified Qualified Code(s): E03.9 - Hypothyroidism , unspecified (4) Tracheostomy in place Code(s): Z98.89 - OTHER SPECIFIED POSTPROCEDURAL STATES * DO NOT USE * (5) Acute on chronic respiratory failure with hypoxia and hypercapnia Code(s): J96.21 - ACUTE AND CHRONIC RESPIRATORY FAILURE WITH HYPOXIA; J96.22 - ACUTE AND CHRONIC RESPIRATORY FAILURE WITH HYPERCAPNIA (6) Decreased GFR Code(s): R94.4 - ABNORMAL RESULTS OF KIDNEY FUNCTION STUDIES (7) Pleural effusion Code(s): J90 - PLEURAL EFFUSION, NOT ELSEWHERE CLASSIFIED (8) Asthma Code(s): J45.909 - UNSPECIFIED ASTHMA, UNCOMPLICATED (9) COPD (chronic obstructive pulmonary disease) Code(s): J44.9 - CHRONIC OBSTRUCTIVE PULMONARY DISEASE, UNSPECIFIED Qualifiers: COPD type: unspecified COPD Qualified Code(s): J44.9 - Chronic obstructive pulmonary disease, unspecified (10) Elevated serum creatinine Code(s): R79.89 - OTHER SPECIFIED ABNORMAL FINDINGS OF BLOOD CHEMISTRY Assessment/Plan Would Lasix increase to 40 Monitoring off ABX Trach collar o2 to keep sats greater than 90 VTE prophylaxis Ivis HARDEN MD
--- NOTE | 2018-02-23 17:48 | DS ---
Physical Exam: SUBJECTIVE: Patient is a 57 y/o female with a past medical of HIV on retrovirals, HTN, COPD , laryngeal cancer s/p tacheotomy (2006), and substance abuse who presented to the ED because she was SOB. She had no acute events overnight and feels that she still has a lot of mucus. OBJECTIVE: Vital Signs Period Temp Pulse Resp BP Sys/Brandt Pulse Ox Last 24 Hr 97.9 F-98.7 F 81-98 18-20 102-135/57-85 93-98 PHYSICAL EXAM GENERAL: Awake, alert, and fully oriented, in no acute distress. HEAD: Normal with no signs of trauma. EYES: Pupils equal, round and reactive to light, extraocular movements intact, sclera anicteric, conjunctiva clear EARS, NOSE, THROAT: Oropharynx clear without exudates. Moist mucous membranes. dentures in place NECK: Normal range of motion LUNGS: Breath sounds equal,crackles bilaterally at the bases. No wheezes. No accessory muscle use. HEART: Regular rate and rhythm, normal S1 and S2 without murmur, rub or gallop. ABDOMEN: Soft, nontender, not distended, normoactive bowel sounds, no guarding, no rebound, no masses. MUSCULOSKELETAL: Normal range of motion at all joints. UPPER EXTREMITIES: 2+ pulses, warm, well-perfused. No cyanosis. LOWER EXTREMITIES: 2+ pulses, warm, well-perfused. No calf tenderness. No peripheral edema. NEUROLOGICAL: Cranial nerves II-XII intact. PSYCHIATRIC: flat affect SKIN: Warm, dry, normal turgor, no rashes or lesions noted, normal capillary refill. LABS Laboratory Results - last 24 hr 02/23/18 02/23/18 07:30 07:30 WBC 7.9 RBC 3.51 L Hgb 11.0 Hct 34.4 MCV 97.9 H MCH 31.4 MCHC 32.0 RDW 15.1 Plt Count 197 MPV 8.8 Sodium 143 Potassium 3.3 L Chloride 99 Carbon Dioxide 38 H Anion Gap 6 L BUN 11 Creatinine 0.9 Creat Clearance w eGFR > 60 Random Glucose 87 Calcium 8.6 Phosphorus 3.2 Magnesium 1.8 Total Bilirubin 0.3 AST 16 ALT 12 Alkaline Phosphatase 81 D Total Protein 6.9 Albumin 2.9 L HOSPITAL COURSE: Date of Admission:02/22/18 Patient presented to the ED with SOB. Her O2 sats dropped to the 50's. She was suctioned and put on a ventilator. Upon examination her O2 sat's had increased and per Pulmonology she was breathing around the vent and it was no longer needed. She was given some albuterol treatments and mucamyst to help her breathing. Her CXR showed left pleural effusion and mild congestion. She was given lasix. Her repeat CXR showed resolution of the congestion. Symptomatically patient improved. She was able to walk with a oxygen tank. Patient was discharged home, told to follow up with pulmonary. Date of Discharge: 02/23/18 Minutes to complete discharge: 35 Discharge Summary Reason For Visit: HX OF TRACHEOSTEMY Current Active Problems Pneumonitis (Acute) COPD (chronic obstructive pulmonary disease) (Chronic) HIV (human immunodeficiency virus infection) (Chronic) Hypertension (Chronic) Tracheostomy in place (Chronic) Condition: Improved - Instructions Diet, Activity, Other Instructions: You were admitted to the hospital because you were having shortness of breath. This was due to the water that entered your trach from the shower and from an increase in mucus. Please cover your trach around any water(shower/swimming) to decrease chance of it entering and causing you shortness of breath. We are going to give you a short course of steroids that should help decrease the amount of mucus production. You will take 4mg of the steroids (Decadron) by mouth for five days. You should get lab work (BMP) in one week to be faxed to your PCP. We prescribed you nebulizer treatments. Please use once every 6 hours as needed for shortness of breath/wheezing. You should follow up with a [employer] within one week (Dr. Millan) to monitor your heart function. You should continue your home medications as prescribed. You should follow up with your primary care physician within one week. You should return to the ED if your symptoms worsen or if you have chest pain, weakness, dizziness, nausea, or vomiting. Referrals: Brandon Evans MD [Staff Physician] - Diamante Schneider NP [Primary Care Provider] - 1 Week Stephanie Millan MD [Staff Physician] - Disposition: VNS/HOME HEALTH CARE - Home Medications Comprehensive Discharge Medication List: Ambulatory Orders Levothyroxine [Synthroid -] 112 mcg PO DAILY 01/09/18 Methadone [Dolophine -] 80 mg PO DAILY 01/09/18 Alprazolam [Xanax] 0.25 mg PO DAILY PRN #16 tablet MDD 1/2 tablet 01/18/18 Mirtazapine [Remeron -] 30 mg PO DAILY #30 tablet 01/18/18 Quetiapine Fumarate [Seroquel -] 25 mg PO HS #30 tablet 01/18/18 Sertraline HCl [Zoloft -] 50 mg PO DAILY #30 tablet 01/18/18 Zolpidem Tartrate [Ambien] 5 mg PO HS #30 tablet MDD 1 01/18/18 Abacavir/Dolutegravir/Lamivudi [Triumeq Tablet] 1 each PO DAILY #30 tablet 02/13 Amlodipine Besylate [Norvasc -] 5 mg PO DAILY #30 tablet 02/13/18 Metoprolol Succinate [Toprol Xl] 25 mg PO DAILY #30 tab.er.24h 02/13/18 Multivitamin,Ther and Minerals [Vitamin and Minerals] 1 each PO DAILY #30 tablet 02/13/18 Dexamethasone [Decadron] 4 mg PO DAILY #5 tablet 02/23/18 Furosemide [Lasix] 40 mg PO DAILY #14 tablet 02/23/18 Miscellaneous Medical Supply [Outpatient Order] 1 each ASDIR #1 misc This patient is new to me today: No Emergency Visit: No Critical Care patient: No - Discharge Referral Referred to [facility] No
--- NOTE | 2018-02-23 18:28 | PN ---
Teaching Attending Note Name of Resident: Poppy Lino ATTENDING PHYSICIAN STATEMENT I saw and evaluated the patient. I reviewed the resident's note and discussed the case with the resident. I agree with the resident's findings and plan as documented. SUBJECTIVE: seen earlier today feels better still with increased green secretion OBJECTIVE: NAd , Awake , alert, cooperative . Trach mask on . cough improved MMM. CV: RRR, Lungs: good air entry, no wheezes. decreased breath sounds and rales at bases. Abd; obese, soft, NT, ND , NL BS Ext : no edema over Upper or lower ext ASSESSMENT AND PLAN: Unfortunate pleasant 57 y/o lady with h/o throat cancer ( unclear type ) s/p S/ chemo /Rtx in 2006, substance abuse,HIV, COPD , HTN, HLP, who presented with sudden onset SOB, she was fond to be hypoxic 1- Acute onset hypoxic and hypercapnic respiratory failure : likely due to water through trach causing pneumonitis , - cont O2 supplementation . has O2 at home - cxray reviewed. - increase lasix dose at hoem to 40 - add a short course of steroids at dc - f/u with pulmonary 2- h/o Substance abuse: cont methadone. 3- h/o HIV: cont meds 4- h/o HT: cont norvasc and lopressor . Dc home.
[2018-02-23] MEDS: QUEtiapine FUMARATE 25 MG TABLET (FP) PO SCH (21:42)
[2018-02-23] MEDS: MIRTAZAPINE 15 MG TABLET (FP) PO SCH (21:42)
[2018-02-24] MEDS: ALBUTEROL SO4 0.083% IH SOL 2.5 MG/3 ML VIAL.NEB. NEB PRN ×5 (02:33→20:50)
[2018-02-24] MEDS: METHADONE HCL 40 MG DISPERSABLE TABLET PO SCH ×3 (06:46→09:05)
[2018-02-24] MEDS: LEVOTHYROXINE NA 112 MCG TABLET (FP) PO SCH ×2 (06:46→07:00)
[2018-02-24] MEDS: ACETYLCYSTEINE 20% 200MG/ML 4 ML VIAL *FOR ORAL / INH USE ONLY NEB SCH ×4 (07:25→20:50)
[2018-02-24] MEDS ORDERED: DEXAMETHASONE 4 MG TABLET (FP) PO ONE (08:15)
[2018-02-24] MEDS: metoPROLOL SUCCINATE 25 MG TAB.SR.24H (FP) PO SCH (09:05)
[2018-02-24] MEDS: MULTIVITAMINS THER W-MINERALS COMBO TABLET (FP) PO SCH (09:05)
[2018-02-24] MEDS: SERTRALINE HCL 50 MG TABLET (FP) PO SCH (09:06)
[2018-02-24] MEDS: lamiVUDine 150 MG TABLET PO SCH (09:06)
[2018-02-24] MEDS: FUROSEMIDE 40 MG TABLET (FP) PO SCH (09:06)
[2018-02-24] MEDS: ENOXAPARIN NA (PORCINE) 40 MG/0.4 ML DISP.SYRIN SQ SCH (09:10)
[2018-02-24] MEDS: DOLUTEGRAVIR SODIUM 50 MG TABLET PO SCH (09:12)
[2018-02-24] MEDS: ABACAVIR SULFATE 300 MG TABLET PO SCH (09:19)
--- NOTE | 2018-02-24 11:33 | PN ---
Teaching Attending Note Name of Resident: Anatoly Nicole ATTENDING PHYSICIAN STATEMENT I saw and evaluated the patient. I reviewed the resident's note and discussed the case with the resident. I agree with the resident's findings and plan as documented. SUBJECTIVE: No fever or chills. No abd pain. SOB and mucus production is better. OBJECTIVE: NAd , Awake , alert, cooperative . Trach mask on . cough improved MMM. CV: RRR, Lungs: good air entry, no wheezes. decreased breath sounds .at bases Abd; obese, soft, NT, ND , NL BS Ext : no edema over Upper or lower ext ASSESSMENT AND PLAN: Unfortunate pleasant 57 y/o lady with h/o throat cancer ( unclear type ) s/p S/ chemo /Rtx in 2006, substance abuse,HIV, COPD , HTN, HLP, who presented with sudden onset SOB, she was fond to be hypoxic 1- Acute onset hypoxic and hypercapnic respiratory failure : likely due to water through trach causing pneumonitis , - cont O2 supplementation . has O2 at home - increase lasix dose to 40 - start short course of steroids - f/u with pulmonary 2- h/o Substance abuse: cont methadone. 3- h/o HIV: cont meds 4- h/o HT: cont norvasc and lopressor . Dc home.
--- NOTE | 2018-02-24 11:50 | PN ---
Progress Note (short form) - Note Progress Note: PULMONARY SUBJECTIVE IMPROVEMENT VSS/AFEBRILE AWAKE/ALERT ANICTERIC SCATTERTED CRACKLES S1S2 BS+ NO EDEMA LABS/MEDS/NOTES/IMAGES (1) HIV (human immunodeficiency virus infection) Code(s): Z21 - ASYMPTOMATIC HUMAN IMMUNODEFICIENCY VIRUS INFECTION STATUS (2) Hypertension Code(s): I10 - ESSENTIAL (PRIMARY) HYPERTENSION Qualifiers: Hypertension type: essential hypertension Qualified Code(s): I10 - Essential (primary) hypertension (3) Hypothyroidism Code(s): E03.9 - HYPOTHYROIDISM, UNSPECIFIED Qualifiers: Hypothyroidism type: unspecified Qualified Code(s): E03.9 - Hypothyroidism , unspecified (4) Tracheostomy in place Code(s): Z98.89 - OTHER SPECIFIED POSTPROCEDURAL STATES * DO NOT USE * (5) Acute on chronic respiratory failure with hypoxia and hypercapnia Code(s): J96.21 - ACUTE AND CHRONIC RESPIRATORY FAILURE WITH HYPOXIA; J96.22 - ACUTE AND CHRONIC RESPIRATORY FAILURE WITH HYPERCAPNIA (6) Decreased GFR Code(s): R94.4 - ABNORMAL RESULTS OF KIDNEY FUNCTION STUDIES (7) Pleural effusion Code(s): J90 - PLEURAL EFFUSION, NOT ELSEWHERE CLASSIFIED (8) Asthma Code(s): J45.909 - UNSPECIFIED ASTHMA, UNCOMPLICATED (9) COPD (chronic obstructive pulmonary disease) Code(s): J44.9 - CHRONIC OBSTRUCTIVE PULMONARY DISEASE, UNSPECIFIED Qualifiers: COPD type: unspecified COPD Qualified Code(s): J44.9 - Chronic obstructive pulmonary disease, unspecified (10) Elevated serum creatinine Code(s): R79.89 - OTHER SPECIFIED ABNORMAL FINDINGS OF BLOOD CHEMISTRY Assessment/Naga Lasix increased to 40 Monitoring off ABX Trach collar o2 to keep sats greater than 90 VTE prophylaxis Discharge planning Ivis HARDEN MD
[2018-02-24] MEDS: QUEtiapine FUMARATE 25 MG TABLET (FP) PO SCH (21:19)
[2018-02-24] MEDS: MIRTAZAPINE 15 MG TABLET (FP) PO SCH (21:19)
[2018-02-25] MEDS ORDERED: DEXAMETHASONE 4 MG TABLET (FP) PO ONE (07:26)
[2018-02-25] MEDS: ALBUTEROL SO4 0.083% IH SOL 2.5 MG/3 ML VIAL.NEB. NEB PRN ×2 (07:30→11:32)
[2018-02-25] MEDS: ACETYLCYSTEINE 20% 200MG/ML 4 ML VIAL *FOR ORAL / INH USE ONLY NEB SCH ×2 (07:30→11:32)
[2018-02-25] MEDS: METHADONE HCL 40 MG DISPERSABLE TABLET PO SCH (08:19)
[2018-02-25] MEDS: LEVOTHYROXINE NA 112 MCG TABLET (FP) PO SCH (08:20)
--- NOTE | 2018-02-25 09:05 | PN ---
Progress Note (short form) - Note Progress Note: PULMONARY SUBJECTIVE IMPROVEMENT WANTS O2 CONCENTRATION INCREASED FOR HOME O2 VSS/AFEBRILE AWAKE/ALERT ANICTERIC SCATTERTED CRACKLES S1S2 BS+ NO EDEMA LABS/MEDS/NOTES/IMAGES (1) HIV (human immunodeficiency virus infection) Code(s): Z21 - ASYMPTOMATIC HUMAN IMMUNODEFICIENCY VIRUS INFECTION STATUS (2) Hypertension Code(s): I10 - ESSENTIAL (PRIMARY) HYPERTENSION Qualifiers: Hypertension type: essential hypertension Qualified Code(s): I10 - Essential (primary) hypertension (3) Hypothyroidism Code(s): E03.9 - HYPOTHYROIDISM, UNSPECIFIED Qualifiers: Hypothyroidism type: unspecified Qualified Code(s): E03.9 - Hypothyroidism , unspecified (4) Tracheostomy in place Code(s): Z98.89 - OTHER SPECIFIED POSTPROCEDURAL STATES * DO NOT USE * (5) Acute on chronic respiratory failure with hypoxia and hypercapnia Code(s): J96.21 - ACUTE AND CHRONIC RESPIRATORY FAILURE WITH HYPOXIA; J96.22 - ACUTE AND CHRONIC RESPIRATORY FAILURE WITH HYPERCAPNIA (6) Decreased GFR Code(s): R94.4 - ABNORMAL RESULTS OF KIDNEY FUNCTION STUDIES (7) Pleural effusion Code(s): J90 - PLEURAL EFFUSION, NOT ELSEWHERE CLASSIFIED (8) Asthma Code(s): J45.909 - UNSPECIFIED ASTHMA, UNCOMPLICATED (9) COPD (chronic obstructive pulmonary disease) Code(s): J44.9 - CHRONIC OBSTRUCTIVE PULMONARY DISEASE, UNSPECIFIED Qualifiers: COPD type: unspecified COPD Qualified Code(s): J44.9 - Chronic obstructive pulmonary disease, unspecified (10) Elevated serum creatinine Code(s): R79.89 - OTHER SPECIFIED ABNORMAL FINDINGS OF BLOOD CHEMISTRY Assessment/Naga Lasix increased to 40 Monitoring off ABX Trach collar o2 to keep sats greater than 90 VTE prophylaxis Discharge planning Ivis HARDEN MD
[2018-02-25] MEDS: FUROSEMIDE 40 MG TABLET (FP) PO SCH (09:06)
[2018-02-25] MEDS: ENOXAPARIN NA (PORCINE) 40 MG/0.4 ML DISP.SYRIN SQ SCH (09:08)
[2018-02-25] MEDS: metoPROLOL SUCCINATE 25 MG TAB.SR.24H (FP) PO SCH (09:09)
[2018-02-25] MEDS: MULTIVITAMINS THER W-MINERALS COMBO TABLET (FP) PO SCH (09:09)
[2018-02-25] MEDS: lamiVUDine 150 MG TABLET PO SCH (09:09)
[2018-02-25] MEDS: SERTRALINE HCL 50 MG TABLET (FP) PO SCH (09:09)
[2018-02-25] MEDS: ABACAVIR SULFATE 300 MG TABLET PO SCH (09:09)
[2018-02-25] MEDS: DOLUTEGRAVIR SODIUM 50 MG TABLET PO SCH (09:10)
[2018-02-25 10:09] VITALS: BP 121/75; PULSE 68; TEMP 97.4
--- NOTE | 2018-02-25 17:05 | HOSP ---
Subjective - Review of Symptoms Events since last encounter: patient was not dc yesterday as transportation could not be arranged despite O2 machine being delivered. today she has no complaints , feels better . lung exam shows improved air entry . will dc home on 3 more days of decadrone 2 mg Physical Examination Vital Signs: Vital Signs Temperature 97.4 F L 02/25/18 10:00 Pulse Rate 68 02/25/18 10:00 Respiratory Rate 20 02/25/18 10:00 Blood Pressure 121/75 02/25/18 10:00 O2 Sat by Pulse Oximetry (%) 96 02/25/18 14:30 Labs: CBC, BMP 02/23/18 07:30 02/23/18 07:30
== END 2018-02-25 15:16 | disposition home health service (06) ==
LOC: JER 09:13 → INTOOBSV 13:29 → JERBED 13:29 → UNDOADMOB 13:29 → JERBED 15:55 → J5S 16:36
PROVIDERS: ADMIT Internal Medicine; ATTEND Internal Medicine
PROC: 3E033GC Introduction of Other Therapeutic Substance into Peripheral Vein, Percutaneous Approach (ICD-10-PCS; principal; 2018-02-22)
PROC: 3E013GC Introduction of Other Therapeutic Substance into Subcutaneous Tissue, Percutaneous Approach (ICD-10-PCS; 2018-02-22)
PROC: 3E0F7GC Introduction of Other Therapeutic Substance into Respiratory Tract, Via Natural or Artificial Opening (ICD-10-PCS; 2018-02-22)
DX: J96.21 Acute and chronic respiratory failure with hypoxia (principal); J95.03 Malfunction of tracheostomy stoma; Z21 Asymptomatic human immunodeficiency virus [HIV] infection status; I10 Essential (primary) hypertension; E03.9 Hypothyroidism, unspecified; Z98.890 Other specified postprocedural states; R94.4 Abnormal results of kidney function studies; J90 Pleural effusion, not elsewhere classified; J45.909 Unspecified asthma, uncomplicated; J44.9 Chronic obstructive pulmonary disease, unspecified; R79.89 Other specified abnormal findings of blood chemistry; Z85.21 Personal history of malignant neoplasm of larynx; N17.9 Acute kidney failure, unspecified; F11.20 Opioid dependence, uncomplicated
CPT/HCPCS: 36415; 36600; 71045-TC-FY; 80053; 82375; 82803; 83050; 83605; 83735; 84100; 84484; 85025; 85027; 85610; 85730; 87040; 87086; 93005; 93010; 93970-TC; 94002; 94640; 96372; 96374; 96376; 99285-25; G0378; J7620

== ENCOUNTER 2018-06-15 12:46 | Inpatient (IN) | payer OTHER ==
--- NOTE | 2018-06-15 13:11 | PDOC ---
Attending Attestation - Resident Resident Name: JarrodGerald - ED Attending Attestation I have performed the following: I have examined & evaluated the patient, The case was reviewed & discussed with the resident, I agree w/resident's findings & plan, Exceptions are as noted - HPI HPI: 06/15/18 13:53 This patient is a 57 year old female with a past medical history of HIV on retrovirals, HTN, COPD (on 10L blowby), laryngeal cancer s/p tracheotomy (2006) , and substance abuse who was BIBA from home for weakness and low O2 saturation. Patient states that she used her pulseoximeter and noted her o2 at 22. She called 911 and EMS reported her intial o2 in the high 80s and after begin placed on it got to the mid 90's. She also reports a chronic cough that has been abit worse ercently, also endorses some dyspena on exertion. . Pt denies any cp, abd pain, nv, yin pain, leg swelling, hemoptysis. Allergies: penicillins, levofloxacin, latex Surgical Hx: tracheostomy (2006) Social History: Smoking: former smoker, quit 2005 Alcohol: denies Drugs: former substance abuser, currently on methadone - Physicial Exam PE: 06/15/18 13:54 GENERAL: Febrile. The patient is awake, alert, and fully oriented, Nontoxic - in no acute distress. HEAD: Normocephalic, atraumatic. EYES: extraocular movements intact, sclera anicteric, conjunctiva clear. ENT: Trach tube is clean, dry, and intact. on blowby Moist mucous membranes. NECK: Normal range of motion, supple LUNGS: rales at bases L>R , nontachypniec HEART: Tachycardic. Regular rhythm, without murmur, rub or gallop. ABDOMEN: Soft, nontender, No guarding, no rebound.No CVA tenderness EXTREMITIES: Normal range of motion, no edema. No cyanosis. No erythema, or tenderness. NEUROLOGICAL: No facial assymetry, Normal speech, moving all 4 extermities spontaneously and symmetrically PSYCH: Normal mood, normal affect. SKIN: Warm, Dry, normal turgor, - Medical Decision Making 06/15/18 13:12 58y F hx of trach seecondary to laryngeal ca, chronic smoking, presents with 1 day of generalized weakness, with episode of hypoxia (to 80s by EMS), associated with cough,mild guardado tachyardic febrile rales at R lung 06/15/18 13:55 ddx pna, copd, viral syndrome, chf, will obtain labs, cxr dion lreassess 06/15/18 15:16 The patient's labs were reviewed and noted for leukocytosis the patient's carbon oxide was also very elevated. The patient's chest x-ray feels past she infiltrates we'll treat the patient for COPD exacerbation/pneumonia the patient is also febrile with a white count. To the patient's ALLERGIES the patient was given vancomycin and aztreonam Heart Score/ECG Review - ECG Impressions Comment:: 06/15/18 13:56 Twelve-lead EKG was performed and reviewed by me. There is normal sinus rhythm with a normal rate. Rate of 92 QTc interval of 472 PVCs present signs of ST elevation or depressions
[2018-06-15] MEDS ORDERED: VANCOMYCIN 1 GRAM (PRE-DOCKED) 1,000 MG/250 ML BAG IVPB ONE ×2 (13:17→13:38)
[2018-06-15] MEDS ORDERED: AZTREONAM 1 GM in DEXTROSE 5%-WATER - 50 ML IVPB ONE (13:17)
[2018-06-15] MEDS ORDERED: ACETAMINOPHEN 1000 MG/100 ML VIAL (NON FORMULARY) IVPB ONE (13:18)
[2018-06-15] MEDS ORDERED: SODIUM CHLORIDE 500 ML IV STA (13:19)
[2018-06-15] MEDS ORDERED: ACETAMINOPHEN INJECTION 100 ML IVPB ONE (13:38)
--- NOTE | 2018-06-15 13:46 | PDOC ---
History of Present Illness - General Stated Complaint: WEAKNESS Time Seen by Provider: 06/15/18 12:52 History Source: Patient Exam Limitations: No Limitations - History of Present Illness Initial Comments: 06/15/18 13:39 Patient is a 58F with history of HIV (last CD4 05/01 in 400s) on HAART, COPD, CHF , laryngeal ca s/p laryngectomy and trach here today complaining of weakness that started this morning. Patient reports that her home spo2 monitor said 22% today. EMS reports her spO2 was in mid to high 80s before applying oxygen. Patient reports a cough, at baseline. Denies fevers, chills, nausea, vomiting. Denies chest pain, endorses shortness of breath. Denies headache and abdominal pain. Denies leg swelling and recent travel. No focal weakness or changes to patient's speech. Past History - Past Medical History Allergies/Adverse Reactions: Allergies Allergy/AdvReac Type Severity Reaction Status Date / Time latex Allergy Verified 06/15/18 14:01 levofloxacin [From Levaquin] Allergy Verified 06/15/18 14:01 Penicillins Allergy Verified 06/15/18 14:01 Home Medications: Ambulatory Orders Levothyroxine [Synthroid -] 112 mcg PO DAILY 01/09/18 Methadone [Dolophine -] 78 mg PO DAILY 01/09/18 Abacavir/Dolutegravir/Lamivudi [Triumeq Tablet] 1 each PO DAILY #30 tablet 02/13 Amlodipine Besylate [Norvasc -] 5 mg PO DAILY #30 tablet 02/13/18 Metoprolol Succinate [Toprol Xl] 25 mg PO DAILY #30 tab.er.24h 02/13/18 Multivitamin,Ther and Minerals [Vitamin and Minerals] 1 each PO DAILY #30 tablet 02/13/18 Miscellaneous Medical Supply [Outpatient Order] 1 each ASDIR #1 misc Albuterol 2.5/Ipratropium 0.5 [Duoneb -] 1 amp NEB Q6H PRN #30 amp 02/24/18 Furosemide [Lasix -] 20 mg PO DAILY #30 tablet 03/27/18 Clotrimazole/Betamet Diprop [Lotrisone Cream (Small Tube)] 1 applic TP BID #1 tube 04/27/18 Alprazolam [Xanax] 0.25 mg PO DAILY PRN #16 tablet MDD 1/2 tablet 05/17/18 Mirtazapine [Remeron -] 30 mg PO DAILY #30 tablet 05/17/18 Quetiapine Fumarate [Seroquel -] 25 mg PO HS #30 tablet 05/17/18 Sertraline HCl [Zoloft -] 50 mg PO DAILY #30 tablet 05/17/18 Zolpidem Tartrate [Ambien] 5 mg PO HS #15 tablet MDD 1 05/17/18 Azithromycin [Zithromax 250mg Tablets -] 250 mg PO DAILY #6 tab 06/01/18 Folic Acid - 1 mg PO DAILY #30 tablet 06/01/18 Furosemide [Lasix] 40 mg PO DAILY #30 tablet 06/01/18 Guaifenesin Dm [Mucinex Dm -] 1 tab PO BID PRN #14 tab.er.12h 06/01/18 Pravastatin Sodium 10 mg PO HS #30 tablet 06/04/18 Anemia: No Asthma: No Cancer: Yes (throat w/tracheostomy) Cardiac Disorders: No CVA: No COPD: No CHF: No DVT: No Dementia: No Diabetes: No GI Disorders: No Disorders: No HTN: Yes Hypercholesterolemia: No Liver Disease: No Seizures: No Thyroid Disease: No - Surgical History Abdominal Surgery: No Appendectomy: No Cardiac Surgery: No Cholecystectomy: No Lung Surgery: No Neurologic Surgery: No Orthopedic Surgery: No (Larygotomy) - Suicide/Smoking/Psychosocial Hx Smoking Status: No Smoking History: Former smoker Have you smoked in the past 12 months: No Number of Cigarettes Smoked Daily: 0 If you are a former smoker, when did you quit?: 2006 Cigars Per Day: 0 Hx Alcohol Use: No Drug/Substance Use Hx: Yes Substance Use Type: None Hx Substance Use Treatment: No Review of Systems - Review of Systems Comments:: 06/15/18 13:47 GENERAL/CONSTITUTIONAL: No fever or chills. +weakness. HEAD, EYES, EARS, NOSE AND THROAT: No change in vision. No sore throat. CARDIOVASCULAR: No chest pain +shortness of breath RESPIRATORY: No cough, wheezing, or hemoptysis. GASTROINTESTINAL: No nausea, vomiting, diarrhea or constipation. GENITOURINARY: No dysuria, frequency, or change in urination. MUSCULOSKELETAL: No joint or muscle swelling or pain. No neck or back pain. SKIN: No rash NEUROLOGIC: No headache, vertigo, loss of consciousness, or change in strength/ sensation. ENDOCRINE: No increased thirst. No abnormal weight change HEMATOLOGIC/LYMPHATIC: No anemia, easy bleeding, or history of blood clots. ALLERGIC/IMMUNOLOGIC: No hives or skin allergy. *Physical Exam - Physical Exam Comments: 06/15/18 13:48 GENERAL: Awake, alert, and fully oriented, in no acute distress HEAD: No signs of trauma, normocephalic, atraumatic EYES: PERRLA, EOMI, sclera anicteric, conjunctiva clear ENT: Auricles normal inspection, hearing grossly normal, nares patent, oropharynx clear without exudates. Moist mucosa. Trach in place NECK: Normal ROM, supple, no lymphadenopathy, JVD, or masses LUNGS: No distress, speaks full sentences, coarse breath sounds, left worse than right HEART: Tachycardic, normal S1 and S2, no murmurs, rubs or gallops, peripheral pulses normal and equal bilaterally. ABDOMEN: Soft, nontender, normoactive bowel sounds. No guarding, no rebound. No masses EXTREMITIES: Normal inspection, Normal range of motion, no edema. No clubbing or cyanosis. NEUROLOGICAL: Cranial nerves II through XII grossly intact. Normal speech, no focal sensorimotor deficits SKIN: Warm, Dry, normal turgor, no rashes or lesions noted. ED Treatment Course - LABORATORY CBC & Chemistry Diagram: 06/15/18 14:00 06/15/18 14:00 - RADIOLOGY Radiology Studies Ordered: Category Date Time Status CHEST X-RAY PORTABLE* [RAD] Stat Radiology 06/15/18 13:10 Ordered Medical Decision Making - Medical Decision Making 06/15/18 13:48 Patient is 56F with history of HIV, COPD, CHF, laryngeal ca s/p laryngectomy and trach here today with weakness. Febrile, tachycardic. DDx includes but is not limited to: pneumonia, CHF, influenza. Septic workup initiated, will cover with vanc and aztreonam due to patient allergies and trach. Will also give tylenol. 06/15/18 13:59 EKG normal sinus rhythm with two PVCs. No st elevations/depressions. Normal axis. Normal intervals. No significant t wave abnormalities. 06/15/18 15:28 Given duonebs and solumedrol as well for possible COPD component. 06/15/18 15:29 Laboratory Tests 06/15/18 06/15/18 06/15/18 13:45 14:00 14:00 WBC 10.5 H Hgb 11.6 Plt Count 250 D Neutrophils % 85.4 H D VBG pH 7.31 L POC VBG pCO2 72.0 H* BUN 17 Creatinine 1.3 Creat Clearance w eGFR 42.22 Troponin I 06/15/18 14:00 WBC Hgb Plt Count Neutrophils % VBG pH POC VBG pCO2 BUN Creatinine Creat Clearance w eGFR Troponin I < 0.02 CBC shows leukocytosis with neutrophillic shift. Hgb stable. VBG shows increased pCO2. CMP reassuring. Trop negative. Page out for admission. 06/15/18 15:32 Admitted, Dr Khan attending. *DC/Admit/Observation/Transfer Diagnosis at time of Disposition: Pneumonia - Discharge Dispostion Disposition: HOME Condition at time of disposition: Good Decision to Admit order: No - Referrals - Patient Instructions - Post Discharge Activity
[2018-06-15 14:04] LABS: VENOUS PH 7.31 (7.32-7.42); VENOUS PO2 36.8 mmHg (28-48)
[2018-06-15 14:12] LABS: BASO % 0.4 % (0-2.0); HEMATOCRIT 37.8 % (32.4-45.2); HEMOGLOBIN 11.6 GM/dL (10.7-15.3); LYMPH % 7.5 % (8-40); MCHC 30.8 g/dl (32.0-36.0); MEAN CELL VOLUME 97.5 fl (80-96); MEAN PLT VOLUME 8.1 fl (7.5-11.1); MONO % 6.7 % (3.8-10.2); NEUT % 85.4 % (42.8-82.8); PLATELET COUNT 250 K/MM3 (134-434); RBC 3.88 M/mm3 (3.60-5.2); RDW 15.7 % (11.6-15.6); WHITE BLOOD COUNT 10.5 K/mm3 (4.0-10.0)
[2018-06-15 14:38] LABS: INR 1.12 (0.83-1.09); PROTHROMBIN TIME (PATIENT) 13.2 SEC (9.7-13.0)
[2018-06-15 14:41] LABS: ACTIVATED PTT 18.7 SECONDS (25.2-36.5)
[2018-06-15 15:03] LABS: ALBUMIN 3.3 g/dl (3.4-5.0); ALK PHOS 102 U/L (45-117); ANION GAP 7 MMOL/L (8-16); BILIRUBIN,TOTAL 0.4 mg/dL (0.2-1); BLOOD UREA NITROGEN 17 mg/dL (7-18); CALCIUM 8.5 mg/dL (8.5-10.1); CHLORIDE 99 mmol/L (98-107); CO2 35 mmol/L (21-32); CREATININE 1.3 mg/dL (0.55-1.3); GLUCOSE,RANDOM 107 mg/dL (74-106); POTASSIUM 3.9 mmol/L (3.5-5.1); SGOT/AST 20 U/L (15-37); SGPT/ALT 13 U/L (13-61); SODIUM 141 mmol/L (136-145); TOT PROT 7.8 g/dl (6.4-8.2)
[2018-06-15 15:07] LABS: URINE APPEARANCE CLOUDY; URINE BILIRUBIN NEGATIVE (<2.0 mg/dL); URINE COLOR DKYELLOW; URINE GLUCOSE (UA) NEGATIVE (NEGATIVE); URINE KETONE NEGATIVE (NEGATIVE); URINE LEUK ESTERASE TRACE (NEGATIVE); URINE NITRITE NEGATIVE (NEGATIVE); URINE PROTEIN 2+ (NEGATIVE)
[2018-06-15] MEDS ORDERED: methylPREDNISolone NA SUCC 125 MG/2 ML VIAL IVPB ONE (15:13)
[2018-06-15] MEDS ORDERED: ALBUTEROL SO4 2.5/IPRATROPIUM 0.5 INH SOL 3 ML VIAL.NEB. NEB ONE ×2 (15:13→16:22)
[2018-06-15 16:20] LABS: EPI CELLS MANY /HPF (FEW); URINE HYALINE CAST 4 /lpf; URINE MUCUS FEW
[2018-06-15] MEDS ORDERED: methylPREDNISolone NA SUCC 125 MG/2 ML VIAL ONE (16:22)
--- NOTE | 2018-06-15 16:40 | HP ---
CHIEF COMPLAINT: shortness of breath "i have pneumonia" PCP: HISTORY OF PRESENT ILLNESS: Patient is a 58 year old female with a significant past medical history of HIV on HAART (cd4 400s), substance abuse (on methadone), COPD, CHF, laryngeal ca s/ p laryngectomy and trach. She presents to the ED today with c/o of weakness, shortness of breath that started this morning. She has a pulse oximeter that shows that her oxygen sats were low in the 80s. She reports increased cough, general malaise and unable to ambulate without shortness of breath. She is usually on oxygen at home 80% of the and can tolerate periods of no oxygen therapy. Patient reports a cough, denies fever,nausea or vomiting. Chest xray done in the Ed with evidence of pnemonia and was given Vancomycin and Azactam. Both ID and pulmonary have been consulted. ER course was notable for: (1) chest xray: congestive changes in possible left base/infiltrate and fluid (2) wbc 10.5 (3) vb.3,72,36.8 (4) trop negative Recent Travel: PAST MEDICAL HISTORY: PAST SURGICAL HISTORY: Social History: Smoking: former smoker, quit 2005 Alcohol: denies Drugs: former substance abuser, currently on methadone Family History: Allergies latex Allergy (Verified 06/15/18 14:01) levofloxacin [From Levaquin] Allergy (Verified 06/15/18 14:01) Penicillins Allergy (Verified 06/15/18 14:01) HOME MEDICATIONS: Home Medications Medication Instructions Recorded Levothyroxine [Synthroid -] 112 mcg PO DAILY 01/09/18 Methadone [Dolophine -] 78 mg PO DAILY 01/09/18 Abacavir/Dolutegravir/Lamivudi 1 each PO DAILY #30 tablet 02/13/18 [Triumeq Tablet] Amlodipine Besylate [Norvasc -] 5 mg PO DAILY #30 tablet 02/13/18 Metoprolol Succinate [Toprol Xl] 25 mg PO DAILY #30 tab.er.24h 02/13/18 Multivitamin,Ther and Minerals 1 each PO DAILY #30 tablet 02/13/18 [Vitamin and Minerals] Miscellaneous Medical Supply 1 each ASDIR #1 misc 02/23/18 [Outpatient Order] Albuterol 2.5/Ipratropium 0.5 1 amp NEB Q6H PRN #30 amp 02/24/18 [Duoneb -] Furosemide [Lasix -] 20 mg PO DAILY #30 tablet 03/27/18 Clotrimazole/Betamet Diprop 1 applic TP BID #1 tube 04/27/18 [Lotrisone Cream (Small Tube)] Alprazolam [Xanax] 0.25 mg PO DAILY PRN #16 tablet 05/17/18 MDD 1/2 tablet Mirtazapine [Remeron -] 30 mg PO DAILY #30 tablet 05/17/18 Quetiapine Fumarate [Seroquel -] 25 mg PO HS #30 tablet 05/17/18 Sertraline HCl [Zoloft -] 50 mg PO DAILY #30 tablet 05/17/18 Zolpidem Tartrate [Ambien] 5 mg PO HS #15 tablet MDD 1 05/17/18 Azithromycin [Zithromax 250mg 250 mg PO DAILY #6 tab 06/01/18 Tablets -] Folic Acid - 1 mg PO DAILY #30 tablet 06/01/18 Furosemide [Lasix] 40 mg PO DAILY #30 tablet 06/01/18 Guaifenesin Dm [Mucinex Dm -] 1 tab PO BID PRN #14 tab.er.12h 06/01/18 Pravastatin Sodium 10 mg PO HS #30 tablet 06/04/18 PHYSICAL EXAMINATION Vital Signs - 24 hr 06/15/18 06/15/18 13:56 14:02 Temperature 101.5 F H 101.5 F H Pulse Rate 94 H Respiratory 16 Rate Blood Pressure 109/75 O2 Sat by Pulse 93 L 93 L Oximetry (%) GENERAL: Awake, alert, and fully oriented, in no acute distress. HEAD: Normal with no signs of trauma. EYES: Pupils equal, round and reactive to light, extraocular movements intact, sclera anicteric, conjunctiva clear. No lid lag. EARS, NOSE, THROAT: Ears normal, nares patent, oropharynx clear without exudates. Moist mucous membranes. NECK: trach with collor LUNGS: crackles auscultated on right lung base, left lung diminished. HEART: Regular rate and rhythm, normal S1 and S2 without murmur, rub or gallop. ABDOMEN: soft, distended, normoactive bowel sounds MUSCULOSKELETAL: Normal range of motion at all joints. No bony deformities or tenderness. No CVA tenderness. UPPER EXTREMITIES: No peripheral edema. LOWER EXTREMITIES: 2+ pulses, warm, well-perfused. No calf tenderness. No peripheral edema. NEUROLOGICAL: Cranial nerves II-XII intact. Normal speech. Normal gait. PSYCHIATRIC: Cooperative. Good eye contact. Appropriate mood and affect. SKIN: Warm, dry, normal turgor, no rashes or lesions noted, normal capillary refill. Laboratory Results - last 24 hr 06/15/18 06/15/18 06/15/18 13:45 14:00 14:00 WBC 10.5 H RBC 3.88 Hgb 11.6 Hct 37.8 MCV 97.5 H MCH 30.0 MCHC 30.8 L RDW 15.7 H Plt Count 250 D MPV 8.1 Absolute Neuts (auto) 8.9 H Neutrophils % 85.4 H D Lymphocytes % 7.5 L D Monocytes % 6.7 Eosinophils % 0.0 D Basophils % 0.4 Nucleated RBC % 0 PT with INR 13.20 H INR 1.12 H PTT (Actin FS) 18.7 L VBG pH 7.31 L POC VBG pCO2 72.0 H* POC VBG pO2 36.8 D Mixed VBG HCO3 35.5 H Sodium Potassium Chloride Carbon Dioxide Anion Gap BUN Creatinine Creat Clearance w eGFR Random Glucose Lactic Acid Calcium Total Bilirubin AST ALT Alkaline Phosphatase Troponin I Total Protein Albumin Urine Color Urine Appearance Urine pH Ur Specific [place] Urine Protein Urine Glucose (UA) Urine Ketones Urine Blood Urine Nitrite Urine Bilirubin Urine Urobilinogen Ur Leukocyte Esterase Urine WBC (Auto) Urine RBC (Auto) Ur Epithelial Cells Hyaline Casts Urine Mucus 06/15/18 06/15/18 06/15/18 14:00 14:00 14:00 WBC RBC Hgb Hct MCV MCH MCHC RDW Plt Count MPV Absolute Neuts (auto) Neutrophils % Lymphocytes % Monocytes % Eosinophils % Basophils % Nucleated RBC % PT with INR INR PTT (Actin FS) VBG pH POC VBG pCO2 POC VBG pO2 Mixed VBG HCO3 Sodium 141 Potassium 3.9 Chloride 99 Carbon Dioxide 35 H Anion Gap 7 L BUN 17 Creatinine 1.3 Creat Clearance w eGFR 42.22 Random Glucose 107 H Lactic Acid 1.4 Calcium 8.5 Total Bilirubin 0.4 AST 20 ALT 13 Alkaline Phosphatase 102 Troponin I < 0.02 Total Protein 7.8 Albumin 3.3 L Urine Color Urine Appearance Urine pH Ur Specific [place] Urine Protein Urine Glucose (UA) Urine Ketones Urine Blood Urine Nitrite Urine Bilirubin Urine Urobilinogen Ur Leukocyte Esterase Urine WBC (Auto) Urine RBC (Auto) Ur Epithelial Cells Hyaline Casts Urine Mucus 06/15/18 14:22 WBC RBC Hgb Hct MCV MCH MCHC RDW Plt Count MPV Absolute Neuts (auto) Neutrophils % Lymphocytes % Monocytes % Eosinophils % Basophils % Nucleated RBC % PT with INR INR PTT (Actin FS) VBG pH POC VBG pCO2 POC VBG pO2 Mixed VBG HCO3 Sodium Potassium Chloride Carbon Dioxide Anion Gap BUN Creatinine Creat Clearance w eGFR Random Glucose Lactic Acid Calcium Total Bilirubin AST ALT Alkaline Phosphatase Troponin I Total Protein Albumin Urine Color Dkyellow Urine Appearance Cloudy Urine pH 5.0 Ur Specific [place] 1.021 Urine Protein 2+ H Urine Glucose (UA) Negative Urine Ketones Negative Urine Blood Negative Urine Nitrite Negative Urine Bilirubin Negative Urine Urobilinogen 2.0 H Ur Leukocyte Esterase Trace Urine WBC (Auto) 8 Urine RBC (Auto) None Ur Epithelial Cells Many Hyaline Casts 4 Urine Mucus Few ASSESSMENT/PLAN: Patient is a 58 year old female with a significant past medical history of HIV on HAART (cd4 400s), substance abuse (on methadone), COPD, CHF, laryngeal ca s/ p laryngectomy and trach. She presents to the ED today with c/o of weakness, shortness of breath that started this morning. She has a pulse oximeter that shows that her oxygen sats were low in the 80s. She reports increased cough, general malaise and unable to ambulate without shortness of breath. She is usually on oxygen at home 80% of the and can tolerate periods of no oxygen therapy. Patient reports a cough, denies fever,nausea or vomiting. Chest xray done in the Ed with evidence of pnemonia and was given Vancomycin and Azactam. Both ID and pulmonary have been consulted. ------ HIV on Haart substance abuse hx on methadone COPD CHF laryngeal cancer s/p laryngectomy ------ Sepsis/Pulm: Presents with mildly elevated wbc at 10.5, shortness of breath, tachycardia and fevers Patient with hx of HIV and laryngeal cancer with trach, therefore immunocompromised. Treated with Vanco and Azactam in the ED ID consulted for further antibiotic therapy chest xray concerning for possible pneumonia Septic workup initiated. lactic acid wnl. blood cultures/urine cultures pending Influenza negative started on medrol q 6 duonebs. monitor airway/chronic trach pulm and ID consulted. COPD. on oxygen therapy, continue duonebs for shortness of breath. Card: ekg with NSR and PVCs, prolonged QT and non specific t wave abnormality No chest pain, trop negative Echo ordered and pending ID: HIV> continue Haart medications. fen tolerating po monitor electrolytes low salt diet prophy protonix full code Visit type - Emergency Visit Emergency Visit: Yes ED Registration Date: 06/15/18 Care time: The patient presented to the Emergency Department on the above date and was hospitalized for further evaluation of their emergent condition. - New Patient This patient is new to me today: Yes Date on this admission: 06/16/18 - Critical Care Critical Care patient: No
[2018-06-15] MEDS ORDERED: ALBUTEROL SO4 2.5/IPRATROPIUM 0.5 INH SOL 3 ML VIAL.NEB. NEB PRN (18:05)
[2018-06-15] MEDS ORDERED: MIRTAZAPINE 15 MG TABLET (FP) ONE (21:36)
[2018-06-15] MEDS: MIRTAZAPINE 30 MG TABLET (FP) PO SCH (21:43)
[2018-06-15] MEDS: QUEtiapine FUMARATE 25 MG TABLET (FP) PO SCH (21:43)
[2018-06-16] MEDS ORDERED: VANCOMYCIN 1 GRAM (PRE-DOCKED) 1,000 MG/250 ML BAG IVPB ONE
[2018-06-16 00:24] VITALS: BMI 34.0
[2018-06-16] MEDS: methylPREDNISolone NA SUCC 40 MG/1 ML VIAL IVPUSH SCH ×3 (01:59→21:21)
[2018-06-16] MEDS: LEVOTHYROXINE NA 112 MCG TABLET (FP) PO SCH (07:46)
[2018-06-16] MEDS ORDERED: PT OWN MED DRAWER 7, Y5N ONE ×2 (09:15→17:24)
[2018-06-16 09:19] LABS: HEMATOCRIT 40.2 % (32.4-45.2); HEMOGLOBIN 12.9 GM/dL (10.7-15.3); MEAN CELL VOLUME 96.9 fl (80-96); MEAN PLT VOLUME 8.2 fl (7.5-11.1); PLATELET COUNT 236 K/MM3 (134-434); RBC 4.15 M/mm3 (3.60-5.2); RDW 15.8 % (11.6-15.6); WHITE BLOOD COUNT 6.3 K/mm3 (4.0-10.0)
[2018-06-16] MEDS: FOLIC ACID 1 MG TABLET (FP) PO SCH (09:25)
[2018-06-16] MEDS: metoPROLOL SUCCINATE 25 MG TAB.SR.24H (FP) PO SCH (09:25)
[2018-06-16] MEDS: amLODIPine BESYLATE 5 MG TABLET (FP) PO SCH (09:25)
[2018-06-16] MEDS: FUROSEMIDE 40 MG TABLET (FP) PO SCH (09:26)
[2018-06-16 09:35] LABS: ANION GAP 8 MMOL/L (8-16); BLOOD UREA NITROGEN 14 mg/dL (7-18); CALCIUM 9.1 mg/dL (8.5-10.1); CHLORIDE 99 mmol/L (98-107); CO2 35 mmol/L (21-32); CREATININE 0.9 mg/dL (0.55-1.3); GLUCOSE,RANDOM 108 mg/dL (74-106); MAGNESIUM 2.1 mg/dL (1.8-2.4); POTASSIUM 4.7 mmol/L (3.5-5.1); SODIUM 142 mmol/L (136-145)
--- NOTE | 2018-06-16 10:17 | PN ---
Physical Exam: SUBJECTIVE: Patient seen and examined OBJECTIVE: Vital Signs Period Temp Pulse Resp BP Sys/Brandt Pulse Ox Last 24 Hr 97.4 F-101.5 F 72-94 16-18 103-142/75-93 93-97 GENERAL: Awake, alert, and fully oriented, in no acute distress. HEAD: Normal with no signs of trauma. EYES: Pupils equal, round and reactive to light, extraocular movements intact, sclera anicteric, conjunctiva clear. No lid lag. EARS, NOSE, THROAT: Ears normal, nares patent, oropharynx clear without exudates. Moist mucous membranes. NECK: trach with collor LUNGS: crackles auscultated on right lung base, left lung diminished. HEART: Regular rate and rhythm, normal S1 and S2 without murmur, rub or gallop. ABDOMEN: soft, distended, normoactive bowel sounds MUSCULOSKELETAL: Normal range of motion at all joints. No bony deformities or tenderness. No CVA tenderness. UPPER EXTREMITIES: No peripheral edema. LOWER EXTREMITIES: 2+ pulses, warm, well-perfused. No calf tenderness. No peripheral edema. NEUROLOGICAL: Cranial nerves II-XII intact. Normal speech. Normal gait. PSYCHIATRIC: Cooperative. Good eye contact. Appropriate mood and affect. SKIN: Warm, dry, normal turgor, no rashes or lesions noted, normal capillary refill. Laboratory Results - last 24 hr 06/15/18 06/15/18 06/15/18 13:45 14:00 14:00 WBC 10.5 H RBC 3.88 Hgb 11.6 Hct 37.8 MCV 97.5 H MCH 30.0 MCHC 30.8 L RDW 15.7 H Plt Count 250 D MPV 8.1 Absolute Neuts (auto) 8.9 H Neutrophils % 85.4 H D Lymphocytes % 7.5 L D Monocytes % 6.7 Eosinophils % 0.0 D Basophils % 0.4 Nucleated RBC % 0 PT with INR 13.20 H INR 1.12 H PTT (Actin FS) 18.7 L VBG pH 7.31 L POC VBG pCO2 72.0 H* POC VBG pO2 36.8 D Mixed VBG HCO3 35.5 H Sodium Potassium Chloride Carbon Dioxide Anion Gap BUN Creatinine Creat Clearance w eGFR Random Glucose Lactic Acid Calcium Magnesium Total Bilirubin AST ALT Alkaline Phosphatase Troponin I Total Protein Albumin Urine Color Urine Appearance Urine pH Ur Specific [place] Urine Protein Urine Glucose (UA) Urine Ketones Urine Blood Urine Nitrite Urine Bilirubin Urine Urobilinogen Ur Leukocyte Esterase Urine WBC (Auto) Urine RBC (Auto) Ur Epithelial Cells Hyaline Casts Urine Mucus 06/15/18 06/15/18 06/15/18 14:00 14:00 14:00 WBC RBC Hgb Hct MCV MCH MCHC RDW Plt Count MPV Absolute Neuts (auto) Neutrophils % Lymphocytes % Monocytes % Eosinophils % Basophils % Nucleated RBC % PT with INR INR PTT (Actin FS) VBG pH POC VBG pCO2 POC VBG pO2 Mixed VBG HCO3 Sodium 141 Potassium 3.9 Chloride 99 Carbon Dioxide 35 H Anion Gap 7 L BUN 17 Creatinine 1.3 Creat Clearance w eGFR 42.22 Random Glucose 107 H Lactic Acid 1.4 Calcium 8.5 Magnesium Total Bilirubin 0.4 AST 20 ALT 13 Alkaline Phosphatase 102 Troponin I < 0.02 Total Protein 7.8 Albumin 3.3 L Urine Color Urine Appearance Urine pH Ur Specific [place] Urine Protein Urine Glucose (UA) Urine Ketones Urine Blood Urine Nitrite Urine Bilirubin Urine Urobilinogen Ur Leukocyte Esterase Urine WBC (Auto) Urine RBC (Auto) Ur Epithelial Cells Hyaline Casts Urine Mucus 06/15/18 06/15/18 06/16/18 14:22 21:00 08:45 WBC 6.3 RBC 4.15 Hgb 12.9 Hct 40.2 MCV 96.9 H MCH 31.0 MCHC 32.0 RDW 15.8 H Plt Count 236 MPV 8.2 Absolute Neuts (auto) Neutrophils % Lymphocytes % Monocytes % Eosinophils % Basophils % Nucleated RBC % PT with INR INR PTT (Actin FS) VBG pH POC VBG pCO2 POC VBG pO2 Mixed VBG HCO3 Sodium Potassium Chloride Carbon Dioxide Anion Gap BUN Creatinine Creat Clearance w eGFR Random Glucose Lactic Acid 0.8 Calcium Magnesium Total Bilirubin AST ALT Alkaline Phosphatase Troponin I Total Protein Albumin Urine Color Dkyellow Urine Appearance Cloudy Urine pH 5.0 Ur Specific [place] 1.021 Urine Protein 2+ H Urine Glucose (UA) Negative Urine Ketones Negative Urine Blood Negative Urine Nitrite Negative Urine Bilirubin Negative Urine Urobilinogen 2.0 H Ur Leukocyte Esterase Trace Urine WBC (Auto) 8 Urine RBC (Auto) None Ur Epithelial Cells Many Hyaline Casts 4 Urine Mucus Few 06/16/18 08:45 WBC RBC Hgb Hct MCV MCH MCHC RDW Plt Count MPV Absolute Neuts (auto) Neutrophils % Lymphocytes % Monocytes % Eosinophils % Basophils % Nucleated RBC % PT with INR INR PTT (Actin FS) VBG pH POC VBG pCO2 POC VBG pO2 Mixed VBG HCO3 Sodium 142 Potassium 4.7 Chloride 99 Carbon Dioxide 35 H Anion Gap 8 BUN 14 Creatinine 0.9 Creat Clearance w eGFR > 60 Random Glucose 108 H Lactic Acid Calcium 9.1 Magnesium 2.1 Total Bilirubin AST ALT Alkaline Phosphatase Troponin I Total Protein Albumin Urine Color Urine Appearance Urine pH Ur Specific [place] Urine Protein Urine Glucose (UA) Urine Ketones Urine Blood Urine Nitrite Urine Bilirubin Urine Urobilinogen Ur Leukocyte Esterase Urine WBC (Auto) Urine RBC (Auto) Ur Epithelial Cells Hyaline Casts Urine Mucus Active Medications Generic Name Dose Route Start Last Admin Trade Name Freq PRN Reason Stop Dose Admin Albuterol/Ipratropium 1 amp 06/15/18 18:05 Duoneb - NEB Q6H PRN SHORT OF BREATH/WHEEZING Amlodipine Besylate 5 mg 06/16/18 10:00 06/16/18 09:25 Norvasc - PO 5 mg DAILY LOI Administration Folic Acid 1 mg 06/16/18 10:00 06/16/18 09:25 Folic Acid - PO 1 mg DAILY LOI Administration Furosemide 40 mg 06/16/18 10:00 06/16/18 09:26 Lasix - PO 40 mg DAILY LOI Administration Influenza Virus Vaccine Quadrival 60 mcg 06/16/18 11:00 Flulaval Quad [id number] IM 06/16/18 11:01 .ONCE ONE Levothyroxine Sodium 112 mcg 06/16/18 07:00 06/16/18 07:46 Synthroid - PO 112 mcg DAILY@0700 LOI Administration Methylprednisolone Sodium Succinate 40 mg 06/16/18 02:00 06/16/18 09:26 Solu-Medrol - IVPUSH 40 mg Q8H-IV LOI Administration Metoprolol Succinate 25 mg 06/16/18 10:00 06/16/18 09:25 Toprol Xl - PO 25 mg DAILY LOI Administration Mirtazapine 30 mg 06/15/18 22:00 06/15/18 21:43 Remeron - PO 30 mg HS LOI Administration Non-Formulary Medication 1 each 06/16/18 10:00 Abacavir/Dolutegravir/Lamivudi [Triumeq Tablet] PO DAILY LOI Quetiapine Fumarate 25 mg 06/15/18 22:00 06/15/18 21:43 Seroquel - PO 25 mg HS LOI Administration ASSESSMENT/PLAN: Patient is a 58 year old female with a significant past medical history of HIV on HAART (cd4 400s), substance abuse (on methadone), COPD, CHF, laryngeal ca s/ p laryngectomy and trach. She presents to the ED with c/o of weakness, shortness of breath that started this morning. She has a pulse oximeter that shows that her oxygen sats were low in the 80s. She reports increased cough, general malaise and unable to ambulate without shortness of breath. She is usually on oxygen at home 80% of the and can tolerate periods of no oxygen therapy. Patient reports a cough, denies fever,nausea or vomiting. Chest xray done in the Ed with evidence of pnemonia and was given Vancomycin and Azactam. Both ID and pulmonary have been consulted. chest ct pending ------ HIV on Haart substance abuse hx on methadone COPD CHF laryngeal cancer s/p laryngectomy ------ Sepsis/Pulm: Presents with mildly elevated wbc at 10.5, shortness of breath, tachycardia and fevers Patient with hx of HIV and laryngeal cancer with trach, therefore immunocompromised. Treated with Vanco and Azactam in the ED ID consulted for further antibiotic therapy chest xray concerning for possible pneumonia, chest ct ordered Septic workup initiated. lactic acid wnl. blood cultures/urine cultures pending Influenza negative started on medrol q 8, doing better, will taper duonebs. monitor airway/chronic trach pulm and ID consulted. COPD. on oxygen therapy, continue duonebs for shortness of breath. Card: ekg with NSR and PVCs, prolonged QT and non specific t wave abnormality No chest pain, trop negative Echo ordered and pending ID: HIV> continue Haart medications. fen tolerating po monitor electrolytes low salt diet prophy protonix full code Visit type - Emergency Visit Emergency Visit: Yes ED Registration Date: 06/15/18 Care time: The patient presented to the Emergency Department on the above date and was hospitalized for further evaluation of their emergent condition. - New Patient This patient is new to me today: Yes Date on this admission: 06/16/18 - Critical Care Critical Care patient: No - Discharge Referral Referred to [facility] Med P.C.: No Physician Referral: Erik Chatman MD ([facility])
[2018-06-16] MEDS ORDERED: FLU VACCINE QUAD 60 MCG/0.5 ML (MDV 18-19) IM ONE (11:00)
--- NOTE | 2018-06-16 12:14 | CON.ID ---
Consult Consult Specialty:: infectious diseases Referred by:: mercedes Reason for Consultation:: pneumonia - History of Present Illness Chief Complaint: weakness,sob History of Present Illness: 58F with history of HIV (last CD4 05/01 in 400s) on HAART, COPD, CHF, laryngeal ca s/p laryngectomy and trach started having weakness and stated that her o2 sat was very low .Ems was called and ems found that her oxygenation was low patient was having sob she was also having a cough . Denies fevers, chills, nausea, vomiting. Denies chest pain, Denies headache and abdominal pain. Denies leg swelling and recent travel. No focal weakness or changes to patient's speech. patient known to me from previous admissions currently patient doing well,sating better patient was worked up and found to ahve new infiltrates. patient was given abx - History Source History Provided By: Patient Limitations to Obtaining History: No Limitations - Past Medical History Cardio/Vascular: Yes: HTN Pulmonary: Yes: Asthma, COPD, Other Infectious Disease: Yes: HIV - Alcohol/Substance Use Hx Alcohol Use: No - Smoking History Smoking history: Former smoker Have you smoked in the past 12 months: No Aproximately how many cigarettes per day: 0 If you are a former smoker, when did you quit?: 2005 Home Medications - Allergies Allergies/Adverse Reactions: Allergies Allergy/AdvReac Type Severity Reaction Status Date / Time latex Allergy Verified 06/15/18 14:01 levofloxacin [From Levaquin] Allergy Verified 06/15/18 14:01 Penicillins Allergy Verified 06/15/18 14:01 - Home Medications Home Medications: Ambulatory Orders Levothyroxine [Synthroid -] 112 mcg PO DAILY 01/09/18 Methadone [Dolophine -] 78 mg PO DAILY 01/09/18 Abacavir/Dolutegravir/Lamivudi [Triumeq Tablet] 1 each PO DAILY #30 tablet 02/13 Amlodipine Besylate [Norvasc -] 5 mg PO DAILY #30 tablet 02/13/18 Metoprolol Succinate [Toprol Xl] 25 mg PO DAILY #30 tab.er.24h 02/13/18 Multivitamin,Ther and Minerals [Vitamin and Minerals] 1 each PO DAILY #30 tablet 02/13/18 Albuterol 2.5/Ipratropium 0.5 [Duoneb -] 1 amp NEB Q6H PRN #30 amp 02/24/18 Furosemide [Lasix -] 20 mg PO DAILY #30 tablet 03/27/18 Clotrimazole/Betamet Diprop [Lotrisone Cream (Small Tube)] 1 applic TP BID #1 tube 04/27/18 Alprazolam [Xanax] 0.25 mg PO DAILY PRN #16 tablet MDD 1/2 tablet 05/17/18 Mirtazapine [Remeron -] 30 mg PO DAILY #30 tablet 05/17/18 Quetiapine Fumarate [Seroquel -] 25 mg PO HS #30 tablet 05/17/18 Zolpidem Tartrate [Ambien] 5 mg PO HS #15 tablet MDD 1 05/17/18 Azithromycin [Zithromax 250mg Tablets -] 250 mg PO DAILY #6 tab 06/01/18 Folic Acid - 1 mg PO DAILY #30 tablet 06/01/18 Furosemide [Lasix] 40 mg PO DAILY #30 tablet 06/01/18 Guaifenesin Dm [Mucinex Dm -] 1 tab PO BID PRN #14 tab.er.12h 06/01/18 Pravastatin Sodium 10 mg PO HS #30 tablet 06/04/18 Sertraline HCl [Zoloft -] 50 mg PO HS 06/15/18 Family Disease History - Family Disease History Family Disease History: Diabetes: Brother, CA: Sister (breast ca x 2 (sisters have different fathers)), Respiratory: Daughter (asthma - d.), Other: Grandparent (MGM - hysterectomy, unknown cause), Mother (Alzheimers; hysterectomy secondary to menorrhagia), Sister Review of Systems - Review of Systems Constitutional: reports: Weakness Eyes: reports: No Symptoms HENT: reports: No Symptoms Neck: reports: No Symptoms Cardiovascular: reports: No Symptoms Respiratory: reports: Cough, SOB, SOB on Exertion Gastrointestinal: reports: No Symptoms Genitourinary: reports: No Symptoms Musculoskeletal: reports: No Symptoms Integumentary: reports: No Symptoms Neurological: reports: No Symptoms Endocrine: reports: No Symptoms Hematology/Lymphatic: reports: No Symptoms Psychiatric: reports: No Symptoms Physical Exam Vital Signs: Vital Signs Temperature 97.7 F 06/16/18 09:33 Pulse Rate 78 06/16/18 09:33 Respiratory Rate 18 06/16/18 09:33 Blood Pressure 142/93 06/16/18 09:33 O2 Sat by Pulse Oximetry (%) 98 06/16/18 09:00 Constitutional: Yes: Well Nourished, No Distress, Calm Cardiovascular: Yes: Regular Rate and Rhythm Respiratory: Yes: Regular, Poor Air Entry, Other (trach ,on trach collar) Gastrointestinal: Yes: Normal Bowel Sounds, Soft Musculoskeletal: Yes: WNL Extremities: Yes: WNL Neurological: Yes: Alert, Oriented Psychiatric: Yes: Alert, Oriented Labs: CBC, BMP 06/16/18 08:45 06/16/18 08:45 Imaging - Results Chest X-ray: Report Reviewed, Image Reviewed Assessment/Plan Problem List - Problems (1) Acute on chronic respiratory failure with hypoxia and hypercapnia Code(s): J96.21 - ACUTE AND CHRONIC RESPIRATORY FAILURE WITH HYPOXIA; J96.22 - ACUTE AND CHRONIC RESPIRATORY FAILURE WITH HYPERCAPNIA (2) HIV (human immunodeficiency virus infection) Code(s): Z21 - ASYMPTOMATIC HUMAN IMMUNODEFICIENCY VIRUS INFECTION STATUS (3) Decreased GFR Code(s): R94.4 - ABNORMAL RESULTS OF KIDNEY FUNCTION STUDIES (4) COPD (chronic obstructive pulmonary disease) Code(s): J44.9 - CHRONIC OBSTRUCTIVE PULMONARY DISEASE, UNSPECIFIED Qualifiers: COPD type: unspecified COPD Qualified Code(s): J44.9 - Chronic obstructive pulmonary disease, unspecified (5) Hypertension Code(s): I10 - ESSENTIAL (PRIMARY) HYPERTENSION Qualifiers: Hypertension type: essential hypertension Qualified Code(s): I10 - Essential (primary) hypertension (6) Hypothyroidism Code(s): E03.9 - HYPOTHYROIDISM, UNSPECIFIED Qualifiers: Hypothyroidism type: unspecified Qualified Code(s): E03.9 - Hypothyroidism , unspecified (7) Tracheostomy in place Code(s): Z98.89 - OTHER SPECIFIED POSTPROCEDURAL STATES * DO NOT USE * 8 pneumonia plan will continue aztreonam will stop vanco close watch rest as per the team
--- NOTE | 2018-06-16 12:44 | EKG ---
Test Reason : Blood Pressure : / mmHG Vent. Rate : 092 BPM Atrial Rate : 092 BPM P-R Int : 142 ms QRS Dur : 084 ms QT Int : 382 ms P-R-T Axes : 056 -03 067 degrees QTc Int : 472 ms SINUS RHYTHM WITH FREQUENT PREMATURE VENTRICULAR COMPLEXES BIATRIAL ENLARGEMENT NONSPECIFIC T WAVE ABNORMALITY PROLONGED QT ABNORMAL ECG WHEN COMPARED WITH ECG OF 22-FEB-2018 09:47, NONSPECIFIC T WAVE ABNORMALITY NOW EVIDENT IN ANTERIOR LEADS Confirmed by KAYLYN ARGUETA MD ([id number]) on 06/16/2018 12:44:12 PM Referred By: Confirmed By:KAYLYN ARGUETA MD
--- NOTE | 2018-06-16 13:38 | CON.PULM ---
Consult Consult Specialty:: PULMONARY Referred by:: MIN Reason for Consultation:: DECREASED O2 SAT WITH SOB - History of Present Illness Chief Complaint: SOB History of Present Illness: Patient is a 58F with history of HIV (last CD4 05/01 in 400s) on HAART, COPD, CHF , laryngeal ca s/p laryngectomy and trach comes to ED complaining of weakness that started this morning. Patient reports that her home spo2 monitor said 22%. EMS reports her spO2 was in mid to high 80s before applying oxygen. Patient reports a cough, at baseline. Denies fevers, chills, nausea, vomiting. Denies chest pain, endorses shortness of breath. Denies headache and abdominal pain. Denies leg swelling and recent travel. No focal weakness or changes to patient' s speech. 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) Musculoskeletal: No: Chronic low back pain Rheumatology: No: Fibromyalgia ENT: No: Sinusitis Endocrine: No: Diabetes Mellitus - Past Surgical History Additional Surgical History: trach/due to laryngeal ca - Alcohol/Substance Use Hx Alcohol Use: No - Smoking History Smoking history: Former smoker Have you smoked in the past 12 months: No Aproximately how many cigarettes per day: 0 If you are a former smoker, when did you quit?: 2005 - Social History Place of : [facility] History of Recent Travel: No Home Medications - Allergies Allergies/Adverse Reactions: Allergies Allergy/AdvReac Type Severity Reaction Status Date / Time latex Allergy Verified 06/15/18 14:01 levofloxacin [From Levaquin] Allergy Verified 06/15/18 14:01 Penicillins Allergy Verified 06/15/18 14:01 - Home Medications Home Medications: Ambulatory Orders Levothyroxine [Synthroid -] 112 mcg PO DAILY 01/09/18 Methadone [Dolophine -] 78 mg PO DAILY 01/09/18 Abacavir/Dolutegravir/Lamivudi [Triumeq Tablet] 1 each PO DAILY #30 tablet 02/13 Amlodipine Besylate [Norvasc -] 5 mg PO DAILY #30 tablet 02/13/18 Metoprolol Succinate [Toprol Xl] 25 mg PO DAILY #30 tab.er.24h 02/13/18 Multivitamin,Ther and Minerals [Vitamin and Minerals] 1 each PO DAILY #30 tablet 02/13/18 Albuterol 2.5/Ipratropium 0.5 [Duoneb -] 1 amp NEB Q6H PRN #30 amp 02/24/18 Furosemide [Lasix -] 20 mg PO DAILY #30 tablet 03/27/18 Clotrimazole/Betamet Diprop [Lotrisone Cream (Small Tube)] 1 applic TP BID #1 tube 04/27/18 Alprazolam [Xanax] 0.25 mg PO DAILY PRN #16 tablet MDD 1/2 tablet 05/17/18 Mirtazapine [Remeron -] 30 mg PO DAILY #30 tablet 05/17/18 Quetiapine Fumarate [Seroquel -] 25 mg PO HS #30 tablet 05/17/18 Zolpidem Tartrate [Ambien] 5 mg PO HS #15 tablet MDD 1 05/17/18 Azithromycin [Zithromax 250mg Tablets -] 250 mg PO DAILY #6 tab 06/01/18 Folic Acid - 1 mg PO DAILY #30 tablet 06/01/18 Furosemide [Lasix] 40 mg PO DAILY #30 tablet 06/01/18 Guaifenesin Dm [Mucinex Dm -] 1 tab PO BID PRN #14 tab.er.12h 06/01/18 Pravastatin Sodium 10 mg PO HS #30 tablet 06/04/18 Sertraline HCl [Zoloft -] 50 mg PO HS 06/15/18 Family Disease History - Family Disease History Family Disease History: Diabetes: Brother, [place]: Sister (breast ca x 2 (sisters have different fathers)), Respiratory: Daughter (asthma - d.), Other: Grandparent (MGM - hysterectomy, unknown cause), Mother (Alzheimers; hysterectomy secondary to menorrhagia), Sister Review of Systems - Review of Systems Constitutional: reports: Loss of Appetite. denies: Fever Eyes: denies: Double Vision HENT: denies: Ear Discharge Neck: denies: Decreased ROM Respiratory: reports: Cough, Exercise Intolerance, SOB, SOB on Exertion, Wheezing. denies: Hemoptysis Gastrointestinal: denies: Abdominal Pain Genitourinary: denies: Burning Physical Exam Vital Sings: Vital Signs Temperature 97.7 F 06/16/18 09:33 Pulse Rate 78 06/16/18 09:33 Respiratory Rate 18 06/16/18 09:33 Blood Pressure 142/93 06/16/18 09:33 O2 Sat by Pulse Oximetry (%) 98 06/16/18 09:00 Constitutional: Yes: Calm Eyes: Yes: EOM Intact HENT: Yes: Normocephalic Neck: Yes: Trachea Midline Cardiovascular: Yes: Regular Rate and Rhythm, S1, S2 Respiratory: Yes: Diminished (at left base), Other (trach in place) Gastrointestinal: Yes: Normal Bowel Sounds, Abdomen, Obese Renal/: Yes: WNL Musculoskeletal: Yes: WNL, Muscle Weakness Edema: No Neurological: Yes: Alert Psychiatric: Yes: Alert Labs: CBC, BMP 06/16/18 08:45 06/16/18 08:45 rest reviewed Imaging - Results Chest X-ray: Report Reviewed, Image Reviewed Problem List - Problems (1) Pneumonia Code(s): J18.9 - PNEUMONIA, UNSPECIFIED ORGANISM (2) Asthma Code(s): J45.909 - UNSPECIFIED ASTHMA, UNCOMPLICATED (3) COPD (chronic obstructive pulmonary disease) Code(s): J44.9 - CHRONIC OBSTRUCTIVE PULMONARY DISEASE, UNSPECIFIED Qualifiers: COPD type: unspecified COPD Qualified Code(s): J44.9 - Chronic obstructive pulmonary disease, unspecified (4) Cardiomegaly Code(s): I51.7 - CARDIOMEGALY (5) Dyslipidemia Code(s): E78.5 - HYPERLIPIDEMIA, UNSPECIFIED (6) HIV (human immunodeficiency virus infection) Code(s): Z21 - ASYMPTOMATIC HUMAN IMMUNODEFICIENCY VIRUS INFECTION STATUS (7) Hypertension Code(s): I10 - ESSENTIAL (PRIMARY) HYPERTENSION Qualifiers: Hypertension type: essential hypertension Qualified Code(s): I10 - Essential (primary) hypertension (8) Tracheostomy in place Code(s): Z98.89 - OTHER SPECIFIED POSTPROCEDURAL STATES * DO NOT USE * (9) Acute on chronic respiratory failure with hypoxia and hypercapnia Code(s): J96.21 - ACUTE AND CHRONIC RESPIRATORY FAILURE WITH HYPOXIA; J96.22 - ACUTE AND CHRONIC RESPIRATORY FAILURE WITH HYPERCAPNIA (10) Pleural effusion Code(s): J90 - PLEURAL EFFUSION, NOT ELSEWHERE CLASSIFIED Assessment/Plan PRESENTLY STABLE FROM A PULMONARY STANDPOINT BREATHING IS NONLABORED AND O2 SAT 98% ON TRACH COLLAR O2 50% CXR IS A PORTABLE/POSSIBLE RETRO CARDIAC INFILTRATE/EFFUSION HIV ON HAART H/O LARYNGEAL CA S/P TRACH CONTINUE EMPIRIC ANTIBIOTICS TAPER MEDROL O2 SUPPLEMENTATION/BRONCHODILATION CONSIDER CT CHEST TO BETTER DEFINE RETRO-CARDIAC AREA WILL FOLLOW Ivis HARDEN MD
[2018-06-16] MEDS: AZTREONAM 1 GM in DEXTROSE 5%-WATER - 50 ML IVPB SCH ×2 (13:52→17:28)
[2018-06-16] MEDS ORDERED: METHADONE HCL 10 MG TABLET PO ONE ×3 (15:12)
[2018-06-16] MEDS: DOLUTEGRAVIR SODIUM 50 MG TABLET (NON-FORMULARY) PO SCH (17:05)
[2018-06-16] MEDS: ABACAVIR SULFATE 300 MG TABLET PO SCH (17:05)
[2018-06-16] MEDS ORDERED: METHADONE PO ONE (17:15)
[2018-06-16] MEDS ORDERED: MIRTAZAPINE 15 MG TABLET (FP) ONE (21:06)
[2018-06-16] MEDS: QUEtiapine FUMARATE 25 MG TABLET (FP) PO SCH (21:21)
[2018-06-16] MEDS: MIRTAZAPINE 30 MG TABLET (FP) PO SCH (21:21)
[2018-06-17] MEDS: AZTREONAM 1 GM in DEXTROSE 5%-WATER - 50 ML IVPB SCH ×3 (01:02→17:01)
[2018-06-17] MEDS ORDERED: METHADONE HCL 10 MG TABLET PO ONE (06:00)
[2018-06-17] MEDS: LEVOTHYROXINE NA 112 MCG TABLET (FP) PO SCH (06:11)
[2018-06-17] MEDS ORDERED: lamiVUDine 150 MG TABLET PO SCH (10:00)
[2018-06-17] MEDS ORDERED: PT OWN MED DRAWER 7, Y5N ONE ×2 (10:29→16:47)
[2018-06-17] MEDS: metoPROLOL SUCCINATE 25 MG TAB.SR.24H (FP) PO SCH (10:49)
[2018-06-17] MEDS: amLODIPine BESYLATE 5 MG TABLET (FP) PO SCH (10:49)
[2018-06-17] MEDS: FUROSEMIDE 40 MG TABLET (FP) PO SCH (10:49)
[2018-06-17] MEDS: FOLIC ACID 1 MG TABLET (FP) PO SCH (10:49)
[2018-06-17] MEDS: PANTOPRAZOLE 40 MG TABLET (FP) PO SCH (10:49)
[2018-06-17] MEDS: methylPREDNISolone NA SUCC 40 MG/1 ML VIAL IVPUSH SCH (10:50)
[2018-06-17] MEDS: ABACAVIR SULFATE 300 MG TABLET PO SCH (10:51)
[2018-06-17] MEDS: DOLUTEGRAVIR SODIUM 50 MG TABLET (NON-FORMULARY) PO SCH (10:51)
[2018-06-17 10:55] LABS: BASO % 0.1 % (0-2.0); HEMATOCRIT 41.8 % (32.4-45.2); HEMOGLOBIN 13.8 GM/dL (10.7-15.3); LYMPH % 9.1 % (8-40); MCH 31.7 pg (25.7-33.7); MEAN CELL VOLUME 96.1 fl (80-96); MEAN PLT VOLUME 8.2 fl (7.5-11.1); MONO % 7.3 % (3.8-10.2); NEUT % 83.5 % (42.8-82.8); PLATELET COUNT 336 K/MM3 (134-434); RBC 4.35 M/mm3 (3.60-5.2); RDW 15.6 % (11.6-15.6); WHITE BLOOD COUNT 9.4 K/mm3 (4.0-10.0)
[2018-06-17 11:24] LABS: ALBUMIN 3.4 g/dl (3.4-5.0); ALK PHOS 114 U/L (45-117); ANION GAP 6 MMOL/L (8-16); BILIRUBIN,TOTAL 0.4 mg/dL (0.2-1); BLOOD UREA NITROGEN 17 mg/dL (7-18); CALCIUM 9.2 mg/dL (8.5-10.1); CHLORIDE 97 mmol/L (98-107); CO2 38 mmol/L (21-32); CREATININE 1.2 mg/dL (0.55-1.3); GLUCOSE,RANDOM 92 mg/dL (74-106); MAGNESIUM 2.1 mg/dL (1.8-2.4); POTASSIUM 3.2 mmol/L (3.5-5.1); SGOT/AST 16 U/L (15-37); SGPT/ALT 11 U/L (13-61); SODIUM 141 mmol/L (136-145); TOT PROT 8.4 g/dl (6.4-8.2)
--- NOTE | 2018-06-17 12:28 | PN ---
Progress Note, Physician History of Present Illness: stable no new issues improving - Current Medication List Current Medications: Active Medications Abacavir Sulfate (Ziagen -) 600 mg PO DAILY [facility] Last Admin: 06/17/18 10:51 Dose: 600 mg Albuterol/Ipratropium (Duoneb -) 1 amp NEB Q6H PRN PRN Reason: SHORT OF BREATH/WHEEZING Amlodipine Besylate (Norvasc -) 5 mg PO DAILY [facility] Last Admin: 06/17/18 10:49 Dose: 5 mg Folic Acid (Folic Acid -) 1 mg PO DAILY [facility] Last Admin: 06/17/18 10:49 Dose: 1 mg Furosemide (Lasix -) 40 mg PO DAILY [facility] Last Admin: 06/17/18 10:49 Dose: 40 mg Aztreonam 1 gm/ Dextrose 50 mls @ 100 mls/hr IVPB Q8H-IV [facility]; Protocol Last Admin: 06/17/18 10:50 Dose: 100 mls/hr Lamivudine (Epivir -) 300 mg PO DAILY [facility] Last Admin: 06/17/18 10:51 Dose: 300 mg Levothyroxine Sodium (Synthroid -) 112 mcg PO DAILY@0700 [facility] Last Admin: 06/17/18 06:11 Dose: 112 mcg Methylprednisolone Sodium Succinate (Solu-Medrol -) 40 mg IVPUSH BID [facility] Last Admin: 06/17/18 10:50 Dose: 40 mg Metoprolol Succinate (Toprol Xl -) 25 mg PO DAILY [facility] Last Admin: 06/17/18 10:49 Dose: 25 mg Mirtazapine (Remeron -) 30 mg PO HS [facility] Last Admin: 06/16/18 21:21 Dose: 30 mg Methadone Oral Solution (78 Mg Only ) 0 each PO ONCE ONE Stop: 06/17/18 10:01 Pantoprazole Sodium (Protonix -) 40 mg PO DAILY [facility] Last Admin: 06/17/18 10:49 Dose: 40 mg Quetiapine Fumarate (Seroquel -) 25 mg PO HS [facility] Last Admin: 06/16/18 21:21 Dose: 25 mg Zolpidem Tartrate (Ambien -) 2.5 mg PO HS PRN PRN Reason: INSOMNIA - Objective Vital Signs: Vital Signs Temperature 98.0 F 06/17/18 09:00 Pulse Rate 76 06/17/18 09:00 Respiratory Rate 20 06/17/18 09:00 Blood Pressure 142/70 06/17/18 09:00 O2 Sat by Pulse Oximetry (%) 98 06/17/18 09:00 Constitutional: Yes: No Distress, Calm Cardiovascular: Yes: Regular Rate and Rhythm Respiratory: Yes: Regular, CTA Bilaterally Gastrointestinal: Yes: Normal Bowel Sounds, Soft Musculoskeletal: Yes: WNL Extremities: Yes: WNL Neurological: Yes: Alert, Oriented Psychiatric: Yes: Alert, Oriented Labs: CBC, BMP 06/17/18 10:40 06/17/18 10:40 INR, PTT INR 1.12 (0.83-1.09) H 06/15/18 14:00 - ....Imaging Chest X-ray: Report Reviewed, Image Reviewed Assessment/Plan Problem List - Problems (1) Acute on chronic respiratory failure with hypoxia and hypercapnia Code(s): J96.21 - ACUTE AND CHRONIC RESPIRATORY FAILURE WITH HYPOXIA; J96.22 - ACUTE AND CHRONIC RESPIRATORY FAILURE WITH HYPERCAPNIA (2) HIV (human immunodeficiency virus infection) Code(s): Z21 - ASYMPTOMATIC HUMAN IMMUNODEFICIENCY VIRUS INFECTION STATUS (3) Decreased GFR Code(s): R94.4 - ABNORMAL RESULTS OF KIDNEY FUNCTION STUDIES (4) COPD (chronic obstructive pulmonary disease) Code(s): J44.9 - CHRONIC OBSTRUCTIVE PULMONARY DISEASE, UNSPECIFIED Qualifiers: COPD type: unspecified COPD Qualified Code(s): J44.9 - Chronic obstructive pulmonary disease, unspecified (5) Hypertension Code(s): I10 - ESSENTIAL (PRIMARY) HYPERTENSION Qualifiers: Hypertension type: essential hypertension Qualified Code(s): I10 - Essential (primary) hypertension (6) Hypothyroidism Code(s): E03.9 - HYPOTHYROIDISM, UNSPECIFIED Qualifiers: Hypothyroidism type: unspecified Qualified Code(s): E03.9 - Hypothyroidism , unspecified (7) Tracheostomy in place Code(s): Z98.89 - OTHER SPECIFIED POSTPROCEDURAL STATES * DO NOT USE * 8 pneumonia plan continue azteonam continue current mgmt resp support rest as per the team
--- NOTE | 2018-06-17 14:19 | PN ---
Progress Note (short form) - Note Progress Note: PULMONARY VSS/AFEBRILE AWAKE/ALERT SUBJECTIVE IMPROVEMENT NO CHANGE IN CLINICAL EXAM CT CHEST CHRONIC CHANGES NO ACUTE PROCESS APPRECIATED PRESENTLY STABLE FROM A PULMONARY STANDPOINT BREATHING IS NONLABORED AND O2 SAT 98% ON TRACH COLLAR O2 50% HIV ON HAART H/O LARYNGEAL CA S/P TRACH CONTINUE EMPIRIC ANTIBIOTICS MEDROL CHANGED TO PREDNISONE O2 SUPPLEMENTATION/BRONCHODILATION Ivis HARDEN MD Problem List - Problems (1) Pneumonia Code(s): J18.9 - PNEUMONIA, UNSPECIFIED ORGANISM (2) Asthma Code(s): J45.909 - UNSPECIFIED ASTHMA, UNCOMPLICATED (3) COPD (chronic obstructive pulmonary disease) Code(s): J44.9 - CHRONIC OBSTRUCTIVE PULMONARY DISEASE, UNSPECIFIED Qualifiers: COPD type: unspecified COPD Qualified Code(s): J44.9 - Chronic obstructive pulmonary disease, unspecified (4) Cardiomegaly Code(s): I51.7 - CARDIOMEGALY (5) Dyslipidemia Code(s): E78.5 - HYPERLIPIDEMIA, UNSPECIFIED (6) HIV (human immunodeficiency virus infection) Code(s): Z21 - ASYMPTOMATIC HUMAN IMMUNODEFICIENCY VIRUS INFECTION STATUS (7) Hypertension Code(s): I10 - ESSENTIAL (PRIMARY) HYPERTENSION Qualifiers: Hypertension type: essential hypertension Qualified Code(s): I10 - Essential (primary) hypertension (8) Tracheostomy in place Code(s): Z98.89 - OTHER SPECIFIED POSTPROCEDURAL STATES * DO NOT USE * (9) Acute on chronic respiratory failure with hypoxia and hypercapnia Code(s): J96.21 - ACUTE AND CHRONIC RESPIRATORY FAILURE WITH HYPOXIA; J96.22 - ACUTE AND CHRONIC RESPIRATORY FAILURE WITH HYPERCAPNIA (10) Pleural effusion Code(s): J90 - PLEURAL EFFUSION, NOT ELSEWHERE CLASSIFIED
[2018-06-17] MEDS ORDERED: METHADONE PO ONE (15:00)
--- NOTE | 2018-06-17 18:15 | PN ---
Physical Exam: SUBJECTIVE: Patient seen and examined at the bedside. feels well, in no acute distress. ambulating, steady gait OBJECTIVE: swallow eval today Vital Signs Period Temp Pulse Resp BP Sys/Brandt Pulse Ox Last 24 Hr 97.8 F-98.4 F 57-76 20-20 129-154/70-90 98-98 GENERAL: Awake, alert, and fully oriented, in no acute distress. HEAD: Normal with no signs of trauma. EYES: Pupils equal, round and reactive to light, extraocular movements intact, sclera anicteric, conjunctiva clear. No lid lag. EARS, NOSE, THROAT: Ears normal, nares patent, oropharynx clear without exudates. Moist mucous membranes. NECK: trach with collar LUNGS: clear to auscultation bilaterally HEART: Regular rate and rhythm, normal S1 and S2 without murmur, rub or gallop. ABDOMEN: soft, distended, normoactive bowel sounds MUSCULOSKELETAL: Normal range of motion at all joints. No bony deformities or tenderness. No CVA tenderness. UPPER EXTREMITIES: No peripheral edema. LOWER EXTREMITIES: 2+ pulses, warm, well-perfused. No calf tenderness. No peripheral edema. NEUROLOGICAL: Normal speech. Normal gait. PSYCHIATRIC: Cooperative. Good eye contact. Appropriate mood and affect. SKIN: Warm, dry, normal turgor, no rashes or lesions noted, normal capillary refill. Laboratory Results - last 24 hr 06/17/18 06/17/18 10:40 10:40 WBC 9.4 RBC 4.35 Hgb 13.8 Hct 41.8 MCV 96.1 H MCH 31.7 MCHC 33.0 RDW 15.6 Plt Count 336 D MPV 8.2 Absolute Neuts (auto) 7.9 Neutrophils % 83.5 H Lymphocytes % 9.1 D Monocytes % 7.3 Eosinophils % 0.0 Basophils % 0.1 Nucleated RBC % 0 Sodium 141 Potassium 3.2 L Chloride 97 L Carbon Dioxide 38 H Anion Gap 6 L BUN 17 Creatinine 1.2 Creat Clearance w eGFR 46.30 Random Glucose 92 Calcium 9.2 Magnesium 2.1 Total Bilirubin 0.4 AST 16 ALT 11 L Alkaline Phosphatase 114 Total Protein 8.4 H Albumin 3.4 Active Medications Generic Name Dose Route Start Last Admin Trade Name Freq PRN Reason Stop Dose Admin Albuterol/Ipratropium 1 amp 11/02/18 18:05 Duoneb - NEB Q6H PRN SHORT OF BREATH/WHEEZING Amlodipine Besylate 5 mg 06/16/18 10:00 06/17/18 10:49 Norvasc - PO 5 mg DAILY LOI Administration Folic Acid 1 mg 06/16/18 10:00 06/17/18 10:49 Folic Acid - PO 1 mg DAILY LOI Administration Furosemide 40 mg 06/16/18 10:00 06/17/18 10:49 Lasix - PO 40 mg DAILY [facility]I Administration Aztreonam 1 gm/ Dextrose 50 mls @ 100 mls/hr 06/16/18 13:00 06/17/18 17:01 IVPB 100 mls/hr Q8H-IV LOI Administration Protocol Levothyroxine Sodium 112 mcg 06/16/18 07:00 06/17/18 06:11 Synthroid - PO 112 mcg DAILY@0700 LOI Administration Metoprolol Succinate 25 mg 06/16/18 10:00 06/17/18 10:49 Toprol Xl - PO 25 mg DAILY [facility]I Administration Mirtazapine 30 mg 06/15/18 22:00 06/16/18 21:21 Remeron - PO 30 mg HS [facility]I Administration Non-Formulary Medication 1 each 06/18/18 10:00 Abacavir/Dolutegravir/Lamivudi [Triumeq Tablet] PO DAILY [facility]I Pantoprazole Sodium 40 mg 06/17/18 10:00 06/17/18 10:49 Protonix - PO 40 mg DAILY [facility]I Administration Prednisone 30 mg 06/18/18 10:00 Deltasone - PO DAILY LOI Quetiapine Fumarate 25 mg 06/15/18 22:00 06/16/18 21:21 Seroquel - PO 25 mg HS [facility]I Administration Zolpidem Tartrate 2.5 mg 06/17/18 09:52 Ambien - PO HS PRN INSOMNIA imaging: chest ct with mild centrilobular emphysema with thickening of the interstitial septa and groundglass opacities. suggestive of atelectatic changes and pulmonary venous congestion. tiny pulmonary nodule in the right upper lobe posteriorly measuring 3mm. follow up needed. 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 She presents to the ED on 06.15.2018 with c/o of weakness, shortness of breath that started this morning. She has a pulse oximeter that shows that her oxygen sats were low in the 80s. She reports increased cough, general malaise and unable to ambulate without shortness of breath. She is usually on oxygen and can tolerate periods of no oxygen therapy. Patient reports a cough, denies fever,nausea or vomiting. ------ HIV on Haart substance abuse hx on methadone COPD CHF laryngeal cancer s/p laryngectomy ------ Sepsis/Pulm: Presents with mildly elevated wbc at 10.5, shortness of breath, tachycardia and fevers Patient with hx of HIV and laryngeal cancer with trach, therefore immunocompromised. On Aztreonam 1 gram, day #4 per ID. blood culture with 1 bottle +cami fraser. repeat BC and UC negative. Afebrile, wbc stable, tolerating episodes w/o oxygen. clinically improved since admission. Influenza negative. taper of Medrol COPD. on oxygen therapy, continue duonebs prn for shortness of breath. Card: ekg with NSR and PVCs, prolonged QT and non specific t wave abnormality No chest pain, trop negative Echo ordered and pending ID: HIV> continue Haart medications. fen tolerating po monitor electrolytes low salt diet prophy protonix full code Visit type - Emergency Visit Emergency Visit: Yes ED Registration Date: 06/15/18 Care time: The patient presented to the Emergency Department on the above date and was hospitalized for further evaluation of their emergent condition. - New Patient This patient is new to me today: No - Critical Care Critical Care patient: No - Discharge Referral Referred to [facility] No
[2018-06-17] MEDS ORDERED: MIRTAZAPINE 15 MG TABLET (FP) ONE (21:05)
[2018-06-17] MEDS: MIRTAZAPINE 30 MG TABLET (FP) PO SCH (21:24)
[2018-06-17] MEDS: ZOLPIDEM TARTRATE 5 MG TABLET PO PRN (21:25)
[2018-06-17] MEDS: QUEtiapine FUMARATE 25 MG TABLET (FP) PO SCH (21:25)
[2018-06-18] MEDS: AZTREONAM 1 GM in DEXTROSE 5%-WATER - 50 ML IVPB SCH ×3 (02:37→17:40)
[2018-06-18] MEDS: LEVOTHYROXINE NA 112 MCG TABLET (FP) PO SCH (06:03)
[2018-06-18 07:56] LABS: BASO % 0.2 % (0-2.0); HEMOGLOBIN 12.8 GM/dL (10.7-15.3); LYMPH % 20.6 % (8-40); MCH 31.8 pg (25.7-33.7); MCHC 32.8 g/dl (32.0-36.0); MEAN CELL VOLUME 96.9 fl (80-96); MONO % 10.1 % (3.8-10.2); NEUT % 69.1 % (42.8-82.8); PLATELET COUNT 247 K/MM3 (134-434); RBC 4.02 M/mm3 (3.60-5.2); WHITE BLOOD COUNT 7.8 K/mm3 (4.0-10.0)
[2018-06-18 08:20] LABS: ALBUMIN 2.9 g/dl (3.4-5.0); ALK PHOS 88 U/L (45-117); ANION GAP 8 MMOL/L (8-16); BILIRUBIN,TOTAL 0.3 mg/dL (0.2-1); BLOOD UREA NITROGEN 18 mg/dL (7-18); CALCIUM 8.6 mg/dL (8.5-10.1); CHLORIDE 100 mmol/L (98-107); CO2 36 mmol/L (21-32); GLUCOSE,RANDOM 72 mg/dL (74-106); MAGNESIUM 2.1 mg/dL (1.8-2.4); POTASSIUM 3.5 mmol/L (3.5-5.1); SGOT/AST 13 U/L (15-37); SGPT/ALT 9 U/L (13-61); SODIUM 144 mmol/L (136-145); TOT PROT 7.1 g/dl (6.4-8.2)
[2018-06-18] MEDS: FOLIC ACID 1 MG TABLET (FP) PO SCH (09:11)
[2018-06-18] MEDS: metoPROLOL SUCCINATE 25 MG TAB.SR.24H (FP) PO SCH (09:11)
[2018-06-18] MEDS: predniSONE 10 MG TABLET (UD) PO SCH (09:11)
[2018-06-18] MEDS: amLODIPine BESYLATE 5 MG TABLET (FP) PO SCH (09:11)
[2018-06-18] MEDS: PANTOPRAZOLE 40 MG TABLET (FP) PO SCH (09:11)
[2018-06-18] MEDS: FUROSEMIDE 40 MG TABLET (FP) PO SCH (09:11)
[2018-06-18] MEDS ORDERED: METHADONE HCL 40 MG DISPERSABLE TABLET PO ONE (10:45)
--- NOTE | 2018-06-18 11:05 | PN ---
Progress Note (short form) - Note Progress Note: PULMONARY States breathing is improved. +nonproductive cough without wheezing. Vital Signs Period Temp Pulse Resp BP Sys/Brandt Pulse Ox Last 24 Hr 97.6 F-98.4 F 57-71 16-20 122-140/82-91 99-100 Gen: NAD with trach Heart: RRR Lung: decreased breath sounds at the bases Abd: soft, nontender Ext: no edema CBC, BMP 06/18/18 07:15 06/18/18 07:15 Active Medications Albuterol/Ipratropium (Duoneb -) 1 amp NEB Q6H PRN PRN Reason: SHORT OF BREATH/WHEEZING Amlodipine Besylate (Norvasc -) 5 mg PO DAILY [facility] Last Admin: 06/18/18 09:11 Dose: 5 mg Folic Acid (Folic Acid -) 1 mg PO DAILY [facility] Last Admin: 06/18/18 09:11 Dose: 1 mg Furosemide (Lasix -) 40 mg PO DAILY [facility] Last Admin: 06/18/18 09:11 Dose: 40 mg Aztreonam 1 gm/ Dextrose 50 mls @ 100 mls/hr IVPB Q8H-IV LOI; Protocol Last Admin: 06/18/18 09:11 Dose: 100 mls/hr Levothyroxine Sodium (Synthroid -) 112 mcg PO DAILY@0700 LOI Last Admin: 06/18/18 06:03 Dose: 112 mcg Metoprolol Succinate (Toprol Xl -) 25 mg PO DAILY [facility] Last Admin: 06/18/18 09:11 Dose: 25 mg Mirtazapine (Remeron -) 30 mg PO HS [facility] Last Admin: 06/17/18 21:24 Dose: 30 mg Non-Formulary Medication (Abacavir/Dolutegravir/Lamivudi [Triumeq Tablet]) 1 each PO DAILY [facility] Last Admin: 06/18/18 09:10 Dose: 1 each Pantoprazole Sodium (Protonix -) 40 mg PO DAILY [facility] Last Admin: 06/18/18 09:11 Dose: 40 mg Prednisone (Deltasone -) 30 mg PO DAILY [facility] Last Admin: 06/18/18 09:11 Dose: 30 mg Quetiapine Fumarate (Seroquel -) 25 mg PO HS [facility] Last Admin: 06/17/18 21:25 Dose: 25 mg Zolpidem Tartrate (Ambien -) 2.5 mg PO HS PRN PRN Reason: INSOMNIA Last Admin: 06/17/18 21:25 Dose: 2.5 mg A/P r/o Pneumonia h/o Laryngeal Ca s/p trach HIV HTN - complete empiric antibiotics - taper off prednisone - O2 to keep SpO2 >90% - inhaled bronchodilators as needed - DVT prophylaxis
--- NOTE | 2018-06-18 12:59 | CONSULT ---
Admitting History and Physical - Primary Care Physician PCP: Migdalia Allen - Admission History of Present Illness: Per EMR- Patient is a 58 year old female with a significant past medical history of HIV on HAART (cd4 400s), substance abuse (on methadone), COPD, CHF, laryngeal ca s/p laryngectomy and trach. She presents to the ED today with c/o of weakness, shortness of breath that started this morning. She has a pulse oximeter that shows that her oxygen sats were low in the 80s. She reports increased cough, general malaise and unable to ambulate without shortness of breath. She is usually on oxygen at home 80% of the and can tolerate periods of no oxygen therapy. Patient reports a cough, denies fever,nausea or vomiting. Selected Entries 06/17/18 06/17/18 06/17/18 05:00 09:00 11:09 Breakfast 75% Lunch Supper Temperature 97.8 F 98.0 F 06/17/18 06/17/18 06/17/18 14:46 18:00 18:34 Breakfast Lunch 75% Supper 100% Temperature 98.4 F 98.0 F 06/18/18 06/18/18 06/18/18 06:00 08:07 09:32 Breakfast 100% Lunch Supper Temperature 97.6 F 98.2 F Laboratory Tests 06/18/18 07:15 WBC 7.8 On soft diet/thin liquid. On trach collar. This is my first consult with this pt. Pt reports food comes out of her nose sometimes but not her stoma. \Laryngectomy 2006. Given Electrolarynx but couldnt be understood. TEP could not be done as she needs a trach tube to keep stoma open. Never taught esophageal voice. 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 Cardiovascular: Yes: HTN Pulmonary: Yes: Asthma, COPD, O2 Dependent, Other (trach/h/o laryngeal ca) Gastrointestinal: No: Ascites Hepatobiliary: No: Cirrhosis Renal/: No: Renal Failure ...: No Heme/Onc: Yes: Anemia Infectious Disease: Yes: HIV Psych: Yes: Addictions (now on methadone) Musculoskeletal: No: Chronic low back pain Rheumatology: No: Fibromyalgia ENT: No: Sinusitis Endocrine: No: Diabetes Mellitus - Advance Directives Advance Directives: Yes: Health Care Proxy - Smoking History Smoking history: Former smoker Have you smoked in the past 12 months: No Aproximately how many cigarettes per day: 0 If you are a former smoker, when did you quit?: 2006 - Alcohol/Substance Use Hx Alcohol Use: No - Social History History of Recent Travel: No History - Admission Reason For Visit: PNEUMONIA - Diagnostics X-ray: Report Reviewed - General Mental Status: Alert and Oriented, Awake and Alert, Able to Follow Commands Attention: Intact - Hearing Hearing: Normal Hearing Aide: No With Patient: No Speech Evaluation - Communication Primary Language: ALBANIAN Oral Expression Ability: Yes: Non-Vocal (Mouths words) - Speech Production Able to Make Needs Known: Yes: Mildly Impaired Intelligibility: Yes: Mildly Impaired - Speech Characteristics Articulation: Yes: Precise - Language/Auditory Comprehension Follows: Yes: 2 Stage Simple Commands - Swallow Evaluation/Bedside Assessment Current Nutritional Intake: Soft, Thin Liquids Oral Secretions: Yes: WFL Facial Symmetry at Rest: Symmetrical Sensation: Normal Against Resistance Opening: Normal Against Resistance Closing: Normal Pucker Lips: Normal Smile: Normal Lingual Movement: Symmetric Lingual Speed of Movement: Normal Lingual Movement Strgth Against Opposition: Normal Lingual Movement Characteristics: Normal Labial Seal: WFL Chewing: WFL Oral Prep Time: WFL A-P Transit: WFL Timing of Swallow: WFL Recommendations - Speech Evaluation, Impression/Plan Impression: 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 Mouths words with occasional audible word, likely vibration of P-E segment.Pt educated on esophageal voice with immediate success in producing tone (burp) and some words. Pt has EXCELLENT potential to speak using esophageal voice. Pt feels she is aspirating but denies food out of trach, just up through nose. She required esoph dilatation by GI at [facility] x yr ago. I suspect this needs to be done again- possibly scarring with h/o RT, resulting in food hanging up and being pushed up nasopharynx. With laryngectomy, there is no communication b/n lungs and esophagus unless a fistula has formed, which is unlikely with pt's symptoms. Recommendations: GI Consult (as out pt f/u for esophagram r/o stricture, indication for dilatation.), Other (chew well, alternate with liquid to reduce esoph build up. OOB for all meals. Upright 1 hour after meals and no PO intake with 2 hours of bedtime. GERD precautions-minimize caffeine, carbonation, citrus , spicy foods, OPD Speech therapy at [facility] for esophageal voice training)
--- NOTE | 2018-06-18 13:05 | PN ---
Progress Note, Physician History of Present Illness: doing well no new issues breathing well on trach collar - Current Medication List Current Medications: Active Medications Albuterol/Ipratropium (Duoneb -) 1 amp NEB Q6H PRN PRN Reason: SHORT OF BREATH/WHEEZING Amlodipine Besylate (Norvasc -) 5 mg PO DAILY [facility] Last Admin: 06/18/18 09:11 Dose: 5 mg Folic Acid (Folic Acid -) 1 mg PO DAILY [facility] Last Admin: 06/18/18 09:11 Dose: 1 mg Furosemide (Lasix -) 40 mg PO DAILY [facility] Last Admin: 06/18/18 09:11 Dose: 40 mg Aztreonam 1 gm/ Dextrose 50 mls @ 100 mls/hr IVPB Q8H-IV LOI; Protocol Last Admin: 06/18/18 09:11 Dose: 100 mls/hr Levothyroxine Sodium (Synthroid -) 112 mcg PO DAILY@0700 [facility] Last Admin: 06/18/18 06:03 Dose: 112 mcg Metoprolol Succinate (Toprol Xl -) 25 mg PO DAILY [facility] Last Admin: 06/18/18 09:11 Dose: 25 mg Mirtazapine (Remeron -) 30 mg PO HS [facility] Last Admin: 06/17/18 21:24 Dose: 30 mg Non-Formulary Medication (Abacavir/Dolutegravir/Lamivudi [Triumeq Tablet]) 1 each PO DAILY [facility] Last Admin: 06/18/18 09:10 Dose: 1 each Pantoprazole Sodium (Protonix -) 40 mg PO DAILY [facility] Last Admin: 06/18/18 09:11 Dose: 40 mg Prednisone (Deltasone -) 30 mg PO DAILY [facility] Last Admin: 06/18/18 09:11 Dose: 30 mg Quetiapine Fumarate (Seroquel -) 25 mg PO HS [facility] Last Admin: 06/17/18 21:25 Dose: 25 mg Zolpidem Tartrate (Ambien -) 2.5 mg PO HS PRN PRN Reason: INSOMNIA Last Admin: 06/17/18 21:25 Dose: 2.5 mg - Objective Vital Signs: Vital Signs Temperature 98.2 F 06/18/18 08:07 Pulse Rate 71 06/18/18 08:07 Respiratory Rate 18 06/18/18 08:07 Blood Pressure 136/91 06/18/18 08:07 O2 Sat by Pulse Oximetry (%) 100 06/18/18 08:00 Constitutional: Yes: No Distress, Calm Neck: Yes: Supple, Other (trach collar) Cardiovascular: Yes: Regular Rate and Rhythm Respiratory: Yes: Regular, CTA Bilaterally Gastrointestinal: Yes: Normal Bowel Sounds Musculoskeletal: Yes: WNL Extremities: Yes: WNL Neurological: Yes: Alert, Oriented Psychiatric: Yes: Alert, Oriented Labs: CBC, BMP 06/18/18 07:15 06/18/18 07:15 INR, PTT INR 1.12 (0.83-1.09) H 06/15/18 14:00 Assessment/Plan Problem List - Problems (1) Acute on chronic respiratory failure with hypoxia and hypercapnia Code(s): J96.21 - ACUTE AND CHRONIC RESPIRATORY FAILURE WITH HYPOXIA; J96.22 - ACUTE AND CHRONIC RESPIRATORY FAILURE WITH HYPERCAPNIA (2) HIV (human immunodeficiency virus infection) Code(s): Z21 - ASYMPTOMATIC HUMAN IMMUNODEFICIENCY VIRUS INFECTION STATUS (3) Decreased GFR Code(s): R94.4 - ABNORMAL RESULTS OF KIDNEY FUNCTION STUDIES (4) COPD (chronic obstructive pulmonary disease) Code(s): J44.9 - CHRONIC OBSTRUCTIVE PULMONARY DISEASE, UNSPECIFIED Qualifiers: COPD type: unspecified COPD Qualified Code(s): J44.9 - Chronic obstructive pulmonary disease, unspecified (5) Hypertension Code(s): I10 - ESSENTIAL (PRIMARY) HYPERTENSION Qualifiers: Hypertension type: essential hypertension Qualified Code(s): I10 - Essential (primary) hypertension (6) Hypothyroidism Code(s): E03.9 - HYPOTHYROIDISM, UNSPECIFIED Qualifiers: Hypothyroidism type: unspecified Qualified Code(s): E03.9 - Hypothyroidism , unspecified (7) Tracheostomy in place Code(s): Z98.89 - OTHER SPECIFIED POSTPROCEDURAL STATES * DO NOT USE * 8 pneumonia plan will continue aztreonam complete 5 days of abx then can stop it rest as per the team
--- NOTE | 2018-06-18 14:53 | ECHO ---
Name: ALAINA CORDERO Exam:Adult Echocardiogram Study Date: 06/18/2018 09:39 AM Age: 58 yrs Reason For Study: shortness of breath Height: 61 in Weight: 180 lb BSA: 1.8 m2 MMode/2D Measurements & Calculations RVDd: 2.9 cm Ao root diam: 3.2 cm IVSd: 0.95 cm LA dimension: 2.7 cm LVIDd: 4.3 cm ACS: 1.8 cm LVIDs: 2.5 cm LVPWd: 0.85 cm IVSs: 1.2 cm LVPWs: 1.3 cm EDV(Teich): 80.8 ml ESV(Teich): 22.3 ml Doppler Measurements & Calculations MV E max carlos: 55.6 cm/sec Ao V2 max: 128.0 cm/sec MV A max carlos: 68.1 cm/sec Ao max P.6 mmHg MV E/A: 0.82 Ao V2 mean: 90.8 cm/sec Ao mean P.8 mmHg Ao V2 VTI: 22.1 cm TR max carlos: 336.7 cm/sec Med Peak E' Carlos: 5.8 cm/sec TR max P.4 mmHg Med E/e': 9.7 Lat Peak E' Carlos: 7.9 cm/sec Lat E/e': 7.0 Procedure A complete two-dimensional transthoracic echocardiogram was performed (2D, M-mode, Doppler and color flow Doppler). Left Ventricle The left ventricle is normal in size. Left ventricular systolic function is normal. Ejection Fraction = 65- 70%. TDI reveals mildly impaired relaxation with normal filling pressure (E/E' 10). No regional wall motion abnormalities noted. Right Ventricle The right ventricle is normal size. The right ventricular systolic function is normal. Atria The left atrial size is normal. Right atrial size is normal. Mitral Valve The mitral valve is normal in structure and function. There is no mitral regurgitation noted. Tricuspid Valve The tricuspid valve is normal in structure and function. There is mild tricuspid regurgitation. Pulmo nary artery systolic pressure is at least 49 mmHg assuming RA pressure of 3 mmHg. Aortic Valve The aortic valve is normal in structure and function. No aortic regurgitation is present. Pulmonic Valve The pulmonic valve is not well visualized. Great Vessels The aortic root is normal size. Pericardium/Pleura There is no pericardial effusion. Interpretation Summary The left ventricle is normal in size. Left ventricular systolic function is normal. No regional wall motion abnormalities noted. Ejection Fraction = 65-70%. TDI reveals mildly impaired relaxation with normal filling pressure (E/E' 10) The right ventricular systolic function is normal. The left atrial size is normal. Right atrial size is normal. There is mild tricuspid regurgitation. Pulmonary artery systolic pressure is at least 49 mmHg assuming RA pressure of 3 mmHg There is no pericardial effusion. When compared to study dated 01/10/18, pulmonary artery pressure appears increased Nick Viera MD 06/18/2018 02:53 PM
--- NOTE | 2018-06-18 17:32 | PN ---
Physical Exam: SUBJECTIVE: Patient seen and examined at the bedside. feels well, in no acute distress. ambulating, steady gait OBJECTIVE: swallow eval today. notes reviewed. pt follow up outpatient with her GI specialist for possible esophagram to r/o stricture (had procedure done 1 yr ago ) Vital Signs Period Temp Pulse Resp BP Sys/Brandt Pulse Ox Last 24 Hr 97.6 F-98.5 F 59-71 16-24 99-140/62-91 99-100 GENERAL: Awake, alert, and fully oriented, in no acute distress. HEAD: Normal with no signs of trauma. EYES: Pupils equal, round and reactive to light, extraocular movements intact, sclera anicteric, conjunctiva clear. No lid lag. EARS, NOSE, THROAT: Ears normal, nares patent, oropharynx clear without exudates. Moist mucous membranes. NECK: trach with collar LUNGS: clear to auscultation bilaterally HEART: Regular rate and rhythm, normal S1 and S2 without murmur, rub or gallop. ABDOMEN: soft, distended, normoactive bowel sounds MUSCULOSKELETAL: Normal range of motion at all joints. No bony deformities or tenderness. No CVA tenderness. UPPER EXTREMITIES: No peripheral edema. LOWER EXTREMITIES: 2+ pulses, warm, well-perfused. No calf tenderness. No peripheral edema. NEUROLOGICAL: Normal speech. Normal gait. PSYCHIATRIC: Cooperative. Good eye contact. Appropriate mood and affect. SKIN: Warm, dry, normal turgor, no rashes or lesions noted, normal capillary refill. Laboratory Results - last 24 hr 06/18/18 06/18/18 07:15 07:15 WBC 7.8 RBC 4.02 Hgb 12.8 Hct 39.0 MCV 96.9 H MCH 31.8 MCHC 32.8 RDW 16.0 H Plt Count 247 D MPV 8.0 Absolute Neuts (auto) 5.4 Neutrophils % 69.1 Lymphocytes % 20.6 D Monocytes % 10.1 Eosinophils % 0.0 Basophils % 0.2 Nucleated RBC % 0 Sodium 144 Potassium 3.5 Chloride 100 Carbon Dioxide 36 H Anion Gap 8 BUN 18 Creatinine 1.0 Creat Clearance w eGFR 57.15 Random Glucose 72 L Calcium 8.6 Magnesium 2.1 Total Bilirubin 0.3 AST 13 L ALT 9 L Alkaline Phosphatase 88 Total Protein 7.1 Albumin 2.9 L Active Medications Generic Name Dose Route Start Last Admin Trade Name Freq PRN Reason Stop Dose Admin Albuterol/Ipratropium 1 amp 06/15/18 18:05 Duoneb - NEB Q6H PRN SHORT OF BREATH/WHEEZING Amlodipine Besylate 5 mg 06/16/18 10:00 06/18/18 09:11 Norvasc - PO 5 mg DAILY [facility] Administration Folic Acid 1 mg 06/16/18 10:00 06/18/18 09:11 Folic Acid - PO 1 mg DAILY [facility] Administration Furosemide 40 mg 06/16/18 10:00 06/18/18 09:11 Lasix - PO 40 mg DAILY [facility] Administration Aztreonam 1 gm/ Dextrose 50 mls @ 100 mls/hr 06/16/18 13:00 06/18/18 09:11 IVPB 100 mls/hr Q8H-IV LOI Administration Protocol Levothyroxine Sodium 112 mcg 06/16/18 07:00 06/18/18 06:03 Synthroid - PO 112 mcg DAILY@0700 LOI Administration Methadone HCl 80 mg 06/19/18 08:00 Dolophine - PO 06/19/18 08:01 ONCE ONE Metoprolol Succinate 25 mg 06/16/18 10:00 06/18/18 09:11 Toprol Xl - PO 25 mg DAILY [facility] Administration Mirtazapine 30 mg 06/15/18 22:00 06/17/18 21:24 Remeron - PO 30 mg HS [facility]I Administration Non-Formulary Medication 1 each 06/18/18 10:00 06/18/18 09:10 Abacavir/Dolutegravir/Lamivudi [Triumeq Tablet] PO 1 each DAILY [facility] Administration Pantoprazole Sodium 40 mg 06/17/18 10:00 06/18/18 09:11 Protonix - PO 40 mg DAILY [facility] Administration Prednisone 30 mg 06/18/18 10:00 06/18/18 09:11 Deltasone - PO 30 mg DAILY [facility] Administration Quetiapine Fumarate 25 mg 06/15/18 22:00 06/17/18 21:25 Seroquel - PO 25 mg HS [facility]I Administration Zolpidem Tartrate 2.5 mg 06/17/18 09:52 06/17/18 21:25 Ambien - PO 2.5 mg HS PRN Administration INSOMNIA ASSESSMENT/PLAN: imaging: chest ct with mild centrilobular emphysema with thickening of the interstitial septa and groundglass opacities. suggestive of atelectatic changes and pulmonary venous congestion. tiny pulmonary nodule in the right upper lobe posteriorly measuring 3mm. follow up needed. 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 She presents to the ED on 06.15.2018 with c/o of weakness, shortness of breath. She reports increased cough, general malaise and unable to ambulate without shortness of breath. ------ HIV on Haart substance abuse hx on methadone COPD CHF laryngeal cancer s/p laryngectomy ------ Sepsis/Pulm; rule out Pneumonia Presents with mildly elevated wbc at 10.5, shortness of breath, tachycardia and fevers. Patient with hx of HIV and laryngeal cancer with trach, therefore immunocompromised. On Aztreonam 1 gram, day #4 per ID. will need a total of 5 days. completes antibiotics tomorrow 06/19/2018 blood culture with 1 bottle +staph evelio. repeat BC and UC negative. Afebrile, wbc stable, tolerating episodes w/o oxygen. clinically improved since admission. Influenza negative. Now on Prednisone 30-mg daily. Shortness of breath, resolved COPD. on oxygen therapy, continue duonebs prn for shortness of breath. Onc: h/o Laryngeal cancer with laryngectomy and trach. Card: ekg with NSR and PVCs, prolonged QT and non specific t wave abnormality No chest pain, trop negative echo noted. ID: HIV> continue Haart medications. Follows at the [facility]. fen tolerating po monitor electrolytes low salt diet Visit type - Emergency Visit Emergency Visit: Yes ED Registration Date: 06/15/18 Care time: The patient presented to the Emergency Department on the above date and was hospitalized for further evaluation of their emergent condition. - New Patient This patient is new to me today: No - Critical Care Critical Care patient: No - Discharge Referral Referred to [facility] Med P.C.: No
[2018-06-18] MEDS ORDERED: MIRTAZAPINE 15 MG TABLET (FP) ONE (20:48)
[2018-06-18] MEDS: MIRTAZAPINE 30 MG TABLET (FP) PO SCH (21:21)
[2018-06-18] MEDS: ZOLPIDEM TARTRATE 5 MG TABLET PO PRN (21:21)
[2018-06-18] MEDS: QUEtiapine FUMARATE 25 MG TABLET (FP) PO SCH (21:22)
[2018-06-19] MEDS: AZTREONAM 1 GM in DEXTROSE 5%-WATER - 50 ML IVPB SCH ×3 (01:52→17:35)
[2018-06-19] MEDS: LEVOTHYROXINE NA 112 MCG TABLET (FP) PO SCH (06:18)
[2018-06-19] MEDS ORDERED: METHADONE HCL 40 MG DISPERSABLE TABLET PO ONE (08:00)
[2018-06-19] MEDS ORDERED: PT OWN MED DRAWER 7, Y5N ONE ×2 (09:28→17:12)
[2018-06-19] MEDS: predniSONE 10 MG TABLET (UD) PO SCH (10:03)
[2018-06-19] MEDS: PANTOPRAZOLE 40 MG TABLET (FP) PO SCH (10:03)
[2018-06-19] MEDS: FOLIC ACID 1 MG TABLET (FP) PO SCH (10:04)
--- NOTE | 2018-06-19 10:17 | PN ---
Progress Note (short form) - Note Progress Note: PULMONARY Denies shortness of breath or chest discomfort. Feels at baseline. Has been ambulating. Vital Signs Period Temp Pulse Resp BP Sys/Brandt Pulse Ox Last 24 Hr 97.6 F-98.5 F 57-78 20-24 99-123/62-77 100-100 Gen: NAD with trach Heart: RRR Lung: decreased breath sounds at the bases Abd: soft, nontender Ext: no edema CBC, BMP 06/18/18 07:15 06/18/18 07:15 Active Medications Albuterol/Ipratropium (Duoneb -) 1 amp NEB Q6H PRN PRN Reason: SHORT OF BREATH/WHEEZING Amlodipine Besylate (Norvasc -) 5 mg PO DAILY [facility] Last Admin: 06/18/18 09:11 Dose: 5 mg Folic Acid (Folic Acid -) 1 mg PO DAILY [facility] Last Admin: 06/19/18 10:04 Dose: 1 mg Furosemide (Lasix -) 40 mg PO DAILY [facility] Last Admin: 06/18/18 09:11 Dose: 40 mg Aztreonam 1 gm/ Dextrose 50 mls @ 100 mls/hr IVPB Q8H-IV LOI; Protocol Last Admin: 06/19/18 10:03 Dose: 100 mls/hr Levothyroxine Sodium (Synthroid -) 112 mcg PO DAILY@0700 [facility] Last Admin: 06/19/18 06:18 Dose: 112 mcg Metoprolol Succinate (Toprol Xl -) 25 mg PO DAILY [facility] Last Admin: 06/18/18 09:11 Dose: 25 mg Mirtazapine (Remeron -) 30 mg PO HS [facility] Last Admin: 06/18/18 21:21 Dose: 30 mg Non-Formulary Medication (Abacavir/Dolutegravir/Lamivudi [Triumeq Tablet]) 1 each PO DAILY [facility] Last Admin: 06/19/18 10:07 Dose: 1 each Pantoprazole Sodium (Protonix -) 40 mg PO DAILY [facility] Last Admin: 06/19/18 10:03 Dose: 40 mg Prednisone (Deltasone -) 30 mg PO DAILY [facility] Last Admin: 06/19/18 10:03 Dose: 30 mg Quetiapine Fumarate (Seroquel -) 25 mg PO HS [facility] Last Admin: 06/18/18 21:22 Dose: 25 mg Zolpidem Tartrate (Ambien -) 2.5 mg PO HS PRN PRN Reason: INSOMNIA Last Admin: 06/18/18 21:21 Dose: 2.5 mg A/P r/o Pneumonia h/o Laryngeal Ca s/p trach COPD HIV HTN - complete antibiotics - taper off prednisone - O2 to keep SpO2 >90% - inhaled bronchodilators as needed - DVT prophylaxis - d/c planning
--- NOTE | 2018-06-19 10:47 | DS ---
Physical Exam: SUBJECTIVE: Patient seen and examined OBJECTIVE: Vital Signs Period Temp Pulse Resp BP Sys/Brandt Pulse Ox Last 24 Hr 97.6 F-98.5 F 57-78 20-24 99-123/62-77 100-100 PHYSICAL EXAM GENERAL: The patient is awake, alert, and fully oriented, in no acute distress. HEAD: Normal with no signs of trauma. EYES: PERRL, extraocular movements intact, sclera anicteric, conjunctiva clear. ENT: Ears normal, nares patent, oropharynx clear without exudates, moist mucous membranes. NECK: Trachea midline, full range of motion, supple. LUNGS: Breath sounds equal, clear to auscultation bilaterally, no wheezes, no crackles, no accessory muscle use. HEART: Regular rate and rhythm, S1, S2 without murmur, rub or gallop. ABDOMEN: Soft, nontender, nondistended, normoactive bowel sounds, no guarding, no rebound, no hepatosplenomegaly, no masses. EXTREMITIES: 2+ pulses, warm, well-perfused, no edema. NEUROLOGICAL: Cranial nerves II through XII grossly intact. Normal speech, gait not observed. PSYCH: Normal mood, normal affect. SKIN: Warm, dry, normal turgor, no rashes or lesions noted. LABS HOSPITAL COURSE: Date of Admission:06/15/18 Date of Discharge: 06/19/18 Discharge Summary Reason For Visit: PNEUMONIA Current Active Problems Pneumonia (Acute) Condition: Fair - Instructions Diet, Activity, Other Instructions: Per speech recs; continue old diet. May need dilation of esophagus Referrals: Gastroenterology,[place] [Other] (Please followup with clinic where dilation was done prior as she may require an additional esophageal dilation) pulmonary medicine, any [Other] (Please followup with either your pre-exting pulmonary doctor if you have one or Dr. Ryan. 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) Dee Dee Valle MD [Staff Physician] - 2 Weeks Care,primary(PCP) [Other] (Please followup within 3-5 days with PCP; if no PCP please schedule patient for followup with resident clinic.) Disposition: HOME - Home Medications Comprehensive Discharge Medication List: Ambulatory Orders Levothyroxine [Synthroid -] 112 mcg PO DAILY 01/09/18 Methadone [Dolophine -] 78 mg PO DAILY 01/09/18 Abacavir/Dolutegravir/Lamivudi [Triumeq Tablet] 1 each PO DAILY #30 tablet 02/13 Amlodipine Besylate [Norvasc -] 5 mg PO DAILY #30 tablet 02/13/18 Metoprolol Succinate [Toprol Xl] 25 mg PO DAILY #30 tab.er.24h 02/13/18 Multivitamin,Ther and Minerals [Vitamin and Minerals] 1 each PO DAILY #30 tablet 02/13/18 Albuterol 2.5/Ipratropium 0.5 [Duoneb -] 1 amp NEB Q6H PRN #30 amp 02/24/18 Clotrimazole/Betamet Diprop [Lotrisone -] 1 applic TP BID #1 tube 04/27/18 Alprazolam [Xanax] 0.25 mg PO DAILY PRN #16 tablet MDD 1/2 tablet 05/17/18 Mirtazapine [Remeron -] 30 mg PO DAILY #30 tablet 05/17/18 Quetiapine Fumarate [Seroquel -] 25 mg PO HS #30 tablet 05/17/18 Zolpidem Tartrate [Ambien] 5 mg PO HS #15 tablet MDD 1 05/17/18 Folic Acid - 1 mg PO DAILY #30 tablet 06/01/18 Furosemide [Lasix] 40 mg PO DAILY #30 tablet 06/01/18 Guaifenesin Dm [Mucinex Dm -] 1 tab PO BID PRN #14 tab.er.12h 06/01/18 Pravastatin Sodium 10 mg PO HS #30 tablet 06/04/18 Sertraline HCl [Zoloft -] 50 mg PO HS 06/15/18 Pantoprazole Sodium [Protonix -] 40 mg PO DAILY tablet.ec 06/19/18 - Discharge Referral Referred to [facility] Med P.C.: No Physician Referral: Erik Chatman MD ([facility])
--- NOTE | 2018-06-19 11:14 | PN ---
Progress Note, [employer] - Note Progress Note: Selected Entries 06/18/18 06/18/18 06/18/18 06:00 08:07 09:32 Breakfast 100% Lunch Supper Temperature Blood Pressure 122/91 136/91 06/18/18 06/18/18 06/18/18 14:55 18:00 18:10 Breakfast Lunch 100% Supper 75% Temperature Blood Pressure 99/62 100/67 06/18/18 06/19/18 06/19/18 22:00 02:00 06:00 Breakfast Lunch Supper Temperature 97.6 F 98.0 F Blood Pressure 120/77 123/74 123/77 06/19/18 10:47 Breakfast 50% Lunch Supper Temperature Blood Pressure Laboratory Tests 06/18/18 07:15 WBC 7.8 Reviewed rec for out pt speech therapy for esophageal speech and f/u by GI with c/o nasopharyngeal regurgitation.
[2018-06-19] MEDS: FUROSEMIDE 40 MG TABLET (FP) PO SCH (11:57)
[2018-06-19] MEDS: amLODIPine BESYLATE 5 MG TABLET (FP) PO SCH (11:57)
[2018-06-19] MEDS: metoPROLOL SUCCINATE 25 MG TAB.SR.24H (FP) PO SCH (11:58)
--- NOTE | 2018-06-19 12:33 | PN ---
Progress Note, Physician History of Present Illness: stable no new issues much better - Current Medication List Current Medications: Active Medications Albuterol/Ipratropium (Duoneb -) 1 amp NEB Q6H PRN PRN Reason: SHORT OF BREATH/WHEEZING Amlodipine Besylate (Norvasc -) 5 mg PO DAILY [facility] Last Admin: 06/19/18 11:57 Dose: Not Given Folic Acid (Folic Acid -) 1 mg PO DAILY LOI Last Admin: 06/19/18 10:04 Dose: 1 mg Furosemide (Lasix -) 40 mg PO DAILY LOI Last Admin: 06/19/18 11:57 Dose: Not Given Aztreonam 1 gm/ Dextrose 50 mls @ 100 mls/hr IVPB Q8H-IV LOI; Protocol Last Admin: 06/19/18 10:03 Dose: 100 mls/hr Levothyroxine Sodium (Synthroid -) 112 mcg PO DAILY@0700 [facility] Last Admin: 06/19/18 06:18 Dose: 112 mcg Metoprolol Succinate (Toprol Xl -) 25 mg PO DAILY [facility] Last Admin: 06/19/18 11:58 Dose: 25 mg Mirtazapine (Remeron -) 30 mg PO HS [facility] Last Admin: 06/18/18 21:21 Dose: 30 mg Non-Formulary Medication (Abacavir/Dolutegravir/Lamivudi [Triumeq Tablet]) 1 each PO DAILY [facility] Last Admin: 06/19/18 10:07 Dose: 1 each Pantoprazole Sodium (Protonix -) 40 mg PO DAILY [facility] Last Admin: 06/19/18 10:03 Dose: 40 mg Prednisone (Deltasone -) 30 mg PO DAILY [facility] Last Admin: 06/19/18 10:03 Dose: 30 mg Quetiapine Fumarate (Seroquel -) 25 mg PO HS [facility] Last Admin: 06/18/18 21:22 Dose: 25 mg Zolpidem Tartrate (Ambien -) 2.5 mg PO HS PRN PRN Reason: INSOMNIA Last Admin: 06/18/18 21:21 Dose: 2.5 mg - Objective Vital Signs: Vital Signs Temperature 98.0 F 06/19/18 10:45 Pulse Rate 87 06/19/18 12:00 Respiratory Rate 19 06/19/18 12:00 Blood Pressure 100/69 06/19/18 12:00 O2 Sat by Pulse Oximetry (%) 100 06/18/18 21:00 Constitutional: Yes: No Distress, Calm Cardiovascular: Yes: S1, S2 Respiratory: Yes: Other Gastrointestinal: Yes: Normal Bowel Sounds, Soft Neurological: Yes: Alert, Oriented Psychiatric: Yes: Alert, Oriented Labs: CBC, BMP 06/18/18 07:15 06/18/18 07:15 INR, PTT INR 1.12 (0.83-1.09) H 06/15/18 14:00 Assessment/Plan Problem List - Problems (1) Acute on chronic respiratory failure with hypoxia and hypercapnia Code(s): J96.21 - ACUTE AND CHRONIC RESPIRATORY FAILURE WITH HYPOXIA; J96.22 - ACUTE AND CHRONIC RESPIRATORY FAILURE WITH HYPERCAPNIA (2) HIV (human immunodeficiency virus infection) Code(s): Z21 - ASYMPTOMATIC HUMAN IMMUNODEFICIENCY VIRUS INFECTION STATUS (3) Decreased GFR Code(s): R94.4 - ABNORMAL RESULTS OF KIDNEY FUNCTION STUDIES (4) COPD (chronic obstructive pulmonary disease) Code(s): J44.9 - CHRONIC OBSTRUCTIVE PULMONARY DISEASE, UNSPECIFIED Qualifiers: COPD type: unspecified COPD Qualified Code(s): J44.9 - Chronic obstructive pulmonary disease, unspecified (5) Hypertension Code(s): I10 - ESSENTIAL (PRIMARY) HYPERTENSION Qualifiers: Hypertension type: essential hypertension Qualified Code(s): I10 - Essential (primary) hypertension (6) Hypothyroidism Code(s): E03.9 - HYPOTHYROIDISM, UNSPECIFIED Qualifiers: Hypothyroidism type: unspecified Qualified Code(s): E03.9 - Hypothyroidism , unspecified (7) Tracheostomy in place Code(s): Z98.89 - OTHER SPECIFIED POSTPROCEDURAL STATES * DO NOT USE * 8 pneumonia plan stable off of abx continue current mgmt resp support rest as per the team
--- NOTE | 2018-06-19 12:48 | PN ---
Physical Exam: SUBJECTIVE: Patient seen and examined; doing well this morning with no events overnight. No new complaints. Was going to be DC'd but did have a low BP so adjusting Lasix dose and monitoring BP one more day and will plan on DC tomorrow. *Spoke with Dr. Ryan: will DC prednisone all together *Spoke with Anamaria: Refer for potential dilation of potential strictures in [place], recommended esophageal voice training (also done in [place]) *Spoke with Dr Valle; appreciate ID presence Will hold BP meds and bolus 250cc NS OBJECTIVE: Vital Signs Period Temp Pulse Resp BP Sys/Brandt Pulse Ox Last 24 Hr 97.6 F-98.5 F 57-87 19-24 89-123/62-77 100-100 GENERAL: The patient is awake, alert, and fully oriented, in no acute distress. Can mouth words to communicate HEAD: Normal with no signs of trauma. EYES: PERRL, extraocular movements intact, sclera anicteric, conjunctiva clear. No ptosis. ENT: Ears normal, nares patent, oropharynx clear without exudates NECK: Trachea midline, full range of motion, supple. LUNGS: Breath sounds equal, clear to auscultation bilaterally HEART: Regular rate and rhythm, S1, S2 without murmur, rub or gallop. ABDOMEN: Soft, nontender, nondistended, normoactive bowel sounds, no guarding, no rebound, no hepatosplenomegaly, no masses. EXTREMITIES: 2+ pulses, warm, well-perfused, no edema. NEUROLOGICAL: Cranial nerves II through XII grossly intact. Normal speech, gait not observed. PSYCH: Normal mood, normal affect. SKIN: Warm, dry, normal turgor, no rashes or lesions noted Active Medications Generic Name Dose Route Start Last Admin Trade Name Freq PRN Reason Stop Dose Admin Albuterol/Ipratropium 1 amp 06/15/18 18:05 Duoneb - NEB Q6H PRN SHORT OF BREATH/WHEEZING Amlodipine Besylate 5 mg 06/16/18 10:00 06/19/18 11:57 Norvasc - PO Not Given DAILY LOI Folic Acid 1 mg 06/16/18 10:00 06/19/18 10:04 Folic Acid - PO 1 mg DAILY LOI Administration Furosemide 40 mg 06/16/18 10:00 06/19/18 11:57 Lasix - PO Not Given DAILY LOI Aztreonam 1 gm/ Dextrose 50 mls @ 100 mls/hr 06/16/18 13:00 06/19/18 10:03 IVPB 100 mls/hr Q8H-IV LOI Administration Protocol Levothyroxine Sodium 112 mcg 06/16/18 07:00 06/19/18 06:18 Synthroid - PO 112 mcg DAILY@0700 LOI Administration Metoprolol Succinate 25 mg 06/16/18 10:00 06/19/18 11:58 Toprol Xl - PO 25 mg DAILY LOI Administration Mirtazapine 30 mg 06/15/18 22:00 06/18/18 21:21 Remeron - PO 30 mg HS LOI Administration Non-Formulary Medication 1 each 06/18/18 10:00 06/19/18 10:07 Abacavir/Dolutegravir/Lamivudi [Triumeq Tablet] PO 1 each DAILY [facility]I Administration Pantoprazole Sodium 40 mg 06/17/18 10:00 06/19/18 10:03 Protonix - PO 40 mg DAILY LOI Administration Prednisone 30 mg 06/18/18 10:00 06/19/18 10:03 Deltasone - PO 30 mg DAILY LOI Administration Quetiapine Fumarate 25 mg 06/15/18 22:00 06/18/18 21:22 Seroquel - PO 25 mg HS LOI Administration Zolpidem Tartrate 2.5 mg 06/17/18 09:52 06/18/18 21:21 Ambien - PO 2.5 mg HS PRN Administration INSOMNIA ASSESSMENT/PLAN: 1) Acute Pneumonia -Completing 5/5 abx today; aspiration unlikely per swallow -Off steroids after today -On trach collar; monitor and treat as needed -Followup with ID, Pulm as OP. Hemodynamics were OK initially but did have hypotensive episode. Not thinking she is acutely septic but will keep an additional day to change BP meds and observe. 2) Swallowing difficulty, potential need for dilation -FU in [place] for potential dilation -Esophageal voice training to be done as OP 3) Chronic Respiratory Failure -At baseline 4) COPD -Off steroids; PRN neds -Ensure followup with pulmonary medicine upon DC 5) HTN -Decreasing lasix from 40 to 20 today; followup fluid status and respiratory status -Consider cutting amlodipine dose in 1/2 if hypotension progressed -Do not think she is acutely septic 6) HLD -Nonacute, follouwp OP 7) H/O CA -Nonacute; s/p trach, followup with outpatient providers. No change to code status If hemodynamics stable and respiratory status normal DC tomorrow. Visit type - Emergency Visit Emergency Visit: No - New Patient This patient is new to me today: Yes Date on this admission: 06/19/18 - Critical Care Critical Care patient: No
[2018-06-19] MEDS ORDERED: MIRTAZAPINE 15 MG TABLET (FP) ONE (20:39)
[2018-06-19] MEDS: MIRTAZAPINE 30 MG TABLET (FP) PO SCH (21:25)
[2018-06-19] MEDS: QUEtiapine FUMARATE 25 MG TABLET (FP) PO SCH (21:25)
[2018-06-19] MEDS: ZOLPIDEM TARTRATE 5 MG TABLET PO PRN (21:25)
[2018-06-20] MEDS ORDERED: PT OWN MED DRAWER 7, Y5N ONE ×4 (00:07→09:54)
[2018-06-20] MEDS: AZTREONAM 1 GM in DEXTROSE 5%-WATER - 50 ML IVPB SCH ×2 (02:19→10:06)
[2018-06-20] MEDS: LEVOTHYROXINE NA 112 MCG TABLET (FP) PO SCH (06:13)
[2018-06-20 07:23] LABS: HEMATOCRIT 38.5 % (32.4-45.2); HEMOGLOBIN 11.8 GM/dL (10.7-15.3); MCH 29.8 pg (25.7-33.7); MCHC 30.6 g/dl (32.0-36.0); MEAN CELL VOLUME 97.6 fl (80-96); MEAN PLT VOLUME 7.9 fl (7.5-11.1); PLATELET COUNT 224 K/MM3 (134-434); RBC 3.94 M/mm3 (3.60-5.2); RDW 15.8 % (11.6-15.6); WHITE BLOOD COUNT 6.2 K/mm3 (4.0-10.0)
[2018-06-20 07:44] LABS: ANION GAP 5 MMOL/L (8-16); BLOOD UREA NITROGEN 18 mg/dL (7-18); CALCIUM 8.6 mg/dL (8.5-10.1); CHLORIDE 103 mmol/L (98-107); CO2 37 mmol/L (21-32); CREATININE 1.1 mg/dL (0.55-1.3); GLUCOSE,RANDOM 77 mg/dL (74-106); POTASSIUM 3.8 mmol/L (3.5-5.1); SODIUM 145 mmol/L (136-145)
[2018-06-20] MEDS ORDERED: FUROSEMIDE 20 MG TABLET (FP) PO SCH (10:00)
[2018-06-20] MEDS: PANTOPRAZOLE 40 MG TABLET (FP) PO SCH (10:05)
[2018-06-20] MEDS: metoPROLOL SUCCINATE 25 MG TAB.SR.24H (FP) PO SCH (10:05)
[2018-06-20] MEDS: amLODIPine BESYLATE 5 MG TABLET (FP) PO SCH (10:05)
[2018-06-20] MEDS: FOLIC ACID 1 MG TABLET (FP) PO SCH (10:06)
[2018-06-20] MEDS ORDERED: METHADONE HCL 40 MG DISPERSABLE TABLET PO ONE (12:02)
--- NOTE | 2018-06-20 12:19 | PN ---
Progress Note, Physician History of Present Illness: stable no new issues on trach collar - Current Medication List Current Medications: Active Medications Albuterol/Ipratropium (Duoneb -) 1 amp NEB Q6H PRN PRN Reason: SHORT OF BREATH/WHEEZING Amlodipine Besylate (Norvasc -) 5 mg PO DAILY [facility] Last Admin: 06/20/18 10:05 Dose: 5 mg Folic Acid (Folic Acid -) 1 mg PO DAILY [facility] Last Admin: 06/20/18 10:06 Dose: 1 mg Furosemide (Lasix -) 20 mg PO DAILY [facility] Last Admin: 06/20/18 10:05 Dose: 20 mg Levothyroxine Sodium (Synthroid -) 112 mcg PO DAILY@0700 [facility] Last Admin: 06/20/18 06:13 Dose: 112 mcg Metoprolol Succinate (Toprol Xl -) 25 mg PO DAILY [facility] Last Admin: 06/20/18 10:05 Dose: 25 mg Mirtazapine (Remeron -) 30 mg PO HS [facility] Last Admin: 06/19/18 21:25 Dose: 30 mg Non-Formulary Medication (Abacavir/Dolutegravir/Lamivudi [Triumeq Tablet]) 1 each PO DAILY [facility] Last Admin: 06/20/18 10:06 Dose: 1 each Pantoprazole Sodium (Protonix -) 40 mg PO DAILY [facility] Last Admin: 06/20/18 10:05 Dose: 40 mg Quetiapine Fumarate (Seroquel -) 25 mg PO HS [facility] Last Admin: 06/19/18 21:25 Dose: 25 mg Zolpidem Tartrate (Ambien -) 2.5 mg PO HS PRN PRN Reason: INSOMNIA Last Admin: 06/19/18 21:25 Dose: 2.5 mg - Objective Vital Signs: Vital Signs Temperature 97.7 F 06/20/18 10:13 Pulse Rate 67 06/20/18 10:13 Respiratory Rate 19 06/20/18 10:13 Blood Pressure 119/79 06/20/18 10:13 O2 Sat by Pulse Oximetry (%) 96 06/20/18 09:00 Constitutional: Yes: No Distress, Calm Cardiovascular: Yes: Regular Rate and Rhythm Respiratory: Yes: Regular, CTA Bilaterally Gastrointestinal: Yes: Normal Bowel Sounds, Soft Musculoskeletal: Yes: WNL Extremities: Yes: WNL Neurological: Yes: Alert, Oriented Psychiatric: Yes: Alert, Oriented Labs: CBC, BMP 06/20/18 06:25 06/20/18 06:25 INR, PTT INR 1.12 (0.83-1.09) H 06/15/18 14:00 Assessment/Plan Problem List - Problems (1) Acute on chronic respiratory failure with hypoxia and hypercapnia Code(s): J96.21 - ACUTE AND CHRONIC RESPIRATORY FAILURE WITH HYPOXIA; J96.22 - ACUTE AND CHRONIC RESPIRATORY FAILURE WITH HYPERCAPNIA (2) HIV (human immunodeficiency virus infection) Code(s): Z21 - ASYMPTOMATIC HUMAN IMMUNODEFICIENCY VIRUS INFECTION STATUS (3) Decreased GFR Code(s): R94.4 - ABNORMAL RESULTS OF KIDNEY FUNCTION STUDIES (4) COPD (chronic obstructive pulmonary disease) Code(s): J44.9 - CHRONIC OBSTRUCTIVE PULMONARY DISEASE, UNSPECIFIED Qualifiers: COPD type: unspecified COPD Qualified Code(s): J44.9 - Chronic obstructive pulmonary disease, unspecified (5) Hypertension Code(s): I10 - ESSENTIAL (PRIMARY) HYPERTENSION Qualifiers: Hypertension type: essential hypertension Qualified Code(s): I10 - Essential (primary) hypertension (6) Hypothyroidism Code(s): E03.9 - HYPOTHYROIDISM, UNSPECIFIED Qualifiers: Hypothyroidism type: unspecified Qualified Code(s): E03.9 - Hypothyroidism , unspecified (7) Tracheostomy in place Code(s): Z98.89 - OTHER SPECIFIED POSTPROCEDURAL STATES * DO NOT USE * 8 pneumonia plan will stop aztreonam continue current mgmt rest as per the team patient doing well
[2018-06-20 14:39] VITALS: TEMP 98.6
--- NOTE | 2018-06-20 15:03 | PN ---
Progress Note, Physician History of Present Illness: pulmonary alert,-resp distress,-cough - Current Medication List Current Medications: Active Medications Albuterol/Ipratropium (Duoneb -) 1 amp NEB Q6H PRN PRN Reason: SHORT OF BREATH/WHEEZING Amlodipine Besylate (Norvasc -) 5 mg PO DAILY [facility] Last Admin: 06/20/18 10:05 Dose: 5 mg Folic Acid (Folic Acid -) 1 mg PO DAILY [facility] Last Admin: 06/20/18 10:06 Dose: 1 mg Furosemide (Lasix -) 20 mg PO DAILY [facility] Last Admin: 06/20/18 10:05 Dose: 20 mg Levothyroxine Sodium (Synthroid -) 112 mcg PO DAILY@0700 [facility] Last Admin: 06/20/18 06:13 Dose: 112 mcg Metoprolol Succinate (Toprol Xl -) 25 mg PO DAILY [facility] Last Admin: 06/20/18 10:05 Dose: 25 mg Mirtazapine (Remeron -) 30 mg PO HS [facility] Last Admin: 06/19/18 21:25 Dose: 30 mg Non-Formulary Medication (Abacavir/Dolutegravir/Lamivudi [Triumeq Tablet]) 1 each PO DAILY [facility] Last Admin: 06/20/18 10:06 Dose: 1 each Pantoprazole Sodium (Protonix -) 40 mg PO DAILY [facility] Last Admin: 06/20/18 10:05 Dose: 40 mg Quetiapine Fumarate (Seroquel -) 25 mg PO HS [facility] Last Admin: 06/19/18 21:25 Dose: 25 mg Zolpidem Tartrate (Ambien -) 2.5 mg PO HS PRN PRN Reason: INSOMNIA Last Admin: 06/19/18 21:25 Dose: 2.5 mg - Objective Vital Signs: Vital Signs Temperature 98.6 F 06/20/18 14:36 Pulse Rate 67 06/20/18 14:36 Respiratory Rate 24 H 06/20/18 14:36 Blood Pressure 113/77 06/20/18 14:36 O2 Sat by Pulse Oximetry (%) 96 06/20/18 09:00 Constitutional: Yes: Well Nourished, Calm Eyes: Yes: WNL HENT: Yes: WNL Neck: Yes: Supple (trach) Cardiovascular: Yes: Regular Rate and Rhythm, S1, S2 Respiratory: Yes: Diminished Gastrointestinal: Yes: Normal Bowel Sounds, Soft Extremities: Yes: WNL Edema: No Labs: CBC, BMP 06/20/18 06:25 06/20/18 06:25 INR, PTT INR 1.12 (0.83-1.09) H 06/15/18 14:00 Problem List - Problems (1) Pneumonia Code(s): J18.9 - PNEUMONIA, UNSPECIFIED ORGANISM (2) COPD (chronic obstructive pulmonary disease) Code(s): J44.9 - CHRONIC OBSTRUCTIVE PULMONARY DISEASE, UNSPECIFIED Qualifiers: COPD type: unspecified COPD Qualified Code(s): J44.9 - Chronic obstructive pulmonary disease, unspecified (3) Acute on chronic respiratory failure with hypoxia and hypercapnia Code(s): J96.21 - ACUTE AND CHRONIC RESPIRATORY FAILURE WITH HYPOXIA; J96.22 - ACUTE AND CHRONIC RESPIRATORY FAILURE WITH HYPERCAPNIA (4) HIV (human immunodeficiency virus infection) Code(s): Z21 - ASYMPTOMATIC HUMAN IMMUNODEFICIENCY VIRUS INFECTION STATUS (5) Hypertension Code(s): I10 - ESSENTIAL (PRIMARY) HYPERTENSION Qualifiers: Hypertension type: essential hypertension Qualified Code(s): I10 - Essential (primary) hypertension Assessment/Plan A/P r/o Pneumonia h/o Laryngeal Ca s/p trach COPD HIV HTN - O2 to keep SpO2 >90% - inhaled bronchodilators as needed - DVT prophylaxis DR FERRO
[2018-06-20 18:10] VITALS: BP 113/69; PULSE 71
--- NOTE | 2018-06-20 18:48 | DS ---
Physical Exam: SUBJECTIVE: Patient seen and examined. Patient being d/chencho to home today. OBJECTIVE: Vital Signs Period Temp Pulse Resp BP Sys/Brandt Pulse Ox Last 24 Hr 97.5 F-98.9 F 53-71 18-24 101-141/67-85 96-100 PHYSICAL EXAM GENERAL: The patient is awake, alert, and fully oriented, in no acute distress. HEAD: Normal with no signs of trauma. EYES: PERRL, extraocular movements intact, sclera anicteric, conjunctiva clear. ENT: Ears normal, nares patent, oropharynx clear without exudates, moist mucous membranes. NECK: +Trach collar LUNGS: Breath sounds equal, clear to auscultation bilaterally, no wheezes, no crackles, no accessory muscle use. HEART: Regular rate and rhythm, S1, S2 without murmur, rub or gallop. ABDOMEN: Distened, soft, nontender, normoactive bowel sounds, no guarding, no rebound, no hepatosplenomegaly, no masses. EXTREMITIES: 2+ pulses, warm, well-perfused, no edema. NEUROLOGICAL: Cranial nerves II through XII grossly intact. Normal speech, gait not observed. PSYCH: Normal mood, normal affect. SKIN: Warm, dry, normal turgor, no rashes or lesions noted. LABS Laboratory Results - last 24 hr 06/20/18 06/20/18 06:25 06:25 WBC 6.2 RBC 3.94 Hgb 11.8 Hct 38.5 MCV 97.6 H MCH 29.8 MCHC 30.6 L RDW 15.8 H Plt Count 224 MPV 7.9 Sodium 145 Potassium 3.8 Chloride 103 Carbon Dioxide 37 H Anion Gap 5 L BUN 18 Creatinine 1.1 Creat Clearance w eGFR 51.20 Random Glucose 77 Calcium 8.6 HOSPITAL COURSE: Date of Admission:06/15/18 Date of Discharge: 06/20/18 58 year old female with a PMH significant for HIV on HAART (cd4 400s), substance abuse (on methadone), COPD, CHF, laryngeal ca s/p laryngectomy and trach. She presented to the ED c/o of weakness, shortness of breath. She reported increased cough, general malaise and [place]. Acute Pneumonia -WBC 10.5, SOB, tachycardia and fever -BC + S. aureus -Repeat BC and UC negative -Immunocompromised; hx of HIV and laryngeal cancer with trach, -Completed 5 day course of Aztreonam 1 gram -Prednisone d/chencho COPD -On O2 -Duonebs prn -F/u with OP pulmonary HIV -Continue [place] Triumeq -Followed at the [facility] Hx of Substance Abuse -Continue Methadone 80 mg daily Hx of Laryngeal Ca -On trach collar; monitor and treat as needed Swallowing difficulty, potential need for dilation -FU in [place] for potential dilation -Esophageal voice training to be done as OP Hypothyroidism -Continue Synthroid 112 mcg daily. HTN -Lasix decreased from 40 mg to 20 mg -Amplodipine 4 mg -Metoprolol Succinate 25 mg qday HLD -Resume Pravastatin 10 mg HW Anxiety/Depression -Xanax 0.125 mg PRN -Seroquel 25 mg qHS -Remeron 30 mg -Zoloft 50 mg HS GERD Protonix 40 mg qday Minutes to complete discharge: 35 Discharge Summary Reason For Visit: PNEUMONIA Condition: Stable - Instructions Diet, Activity, Other Instructions: Ms. Jey Sapp, [place] were admitted to [facility] from 06/15/18 - 06/20/18 for treatment of pneumonia. Here are our recommendations: 1) Acute Pneumonia/COPD -You completed a course of antibiotics and are no longer taking steroids. -Continue daily trach care -Follow up with paraprofessional aide. 2) Swallowing difficulty -Follwo up in [place] for potential esophageal dilation and esophageal voice training. -Continue soft food diet 3) High blood pressure -Medications -Amlodipine 5 mg daily -Lasix 20 mg daily -Metoprolol Succinate 25 mg daily I am available for questions. [facility] [phone] Referrals: Gastroenterology,[place] [Other] (Please followup with clinic where dilation was done prior as she may require an additional esophageal dilation) pulmonary medicine, any [Other] (Please followup with either your pre-exting pulmonary doctor if you have one or Dr. Ryan. We didn't have any records of prior paraprofessional aide) Care,primary(PCP) [Other] (Please followup within 3-5 days with PCP; if no PCP please schedule patient for followup with resident clinic.) [facility] Providers [Provider Group] - 1 Week Dee Dee Valle MD [Staff Physician] - 2 Weeks Disposition: HOME - Home Medications Comprehensive Discharge Medication List: Ambulatory Orders Levothyroxine [Synthroid -] 112 mcg PO DAILY 01/09/18 Methadone [Dolophine -] 78 mg PO DAILY 01/09/18 Abacavir/Dolutegravir/Lamivudi [Triumeq Tablet] 1 each PO DAILY #30 tablet 02/13 Amlodipine Besylate [Norvasc -] 5 mg PO DAILY #30 tablet 02/13/18 Metoprolol Succinate [Toprol Xl] 25 mg PO DAILY #30 tab.er.24h 02/13/18 Multivitamin,Ther and Minerals [Vitamin and Minerals] 1 each PO DAILY #30 tablet 02/13/18 Albuterol 2.5/Ipratropium 0.5 [Duoneb -] 1 amp NEB Q6H PRN #30 amp 02/24/18 Clotrimazole/Betamet Diprop [Lotrisone -] 1 applic TP BID #1 tube 04/27/18 Alprazolam [Xanax] 0.25 mg PO DAILY PRN #16 tablet MDD 1/2 tablet 05/17/18 Mirtazapine [Remeron -] 30 mg PO DAILY #30 tablet 05/17/18 Quetiapine Fumarate [Seroquel -] 25 mg PO HS #30 tablet 05/17/18 Zolpidem Tartrate [Ambien] 5 mg PO HS #15 tablet MDD 1 05/17/18 Folic Acid - 1 mg PO DAILY #30 tablet 06/01/18 Furosemide [Lasix] 40 mg PO DAILY #30 tablet 06/01/18 Guaifenesin Dm [Mucinex Dm -] 1 tab PO BID PRN #14 tab.er.12h 06/01/18 Pravastatin Sodium 10 mg PO HS #30 tablet 06/04/18 Sertraline HCl [Zoloft -] 50 mg PO HS 06/15/18 Pantoprazole Sodium [Protonix -] 40 mg PO DAILY tablet.ec 06/19/18 Amlodipine Besylate [Norvasc -] 5 mg PO DAILY #30 tablet 06/20/18 Furosemide [Lasix -] 20 mg PO DAILY #30 tablet 06/20/18 Metoprolol Succinate [Toprol XL -] 25 mg PO DAILY #30 tab.sr.24h 06/20/18 This patient is new to me today: Yes Date on this admission: 06/20/18 Emergency Visit: No Critical Care patient: No - Discharge Referral Referred to [facility] Med P.C.: No Physician Referral: Erik Chatman MD ([facility])
== END 2018-06-20 18:27 | disposition home or self-care (01) | DRG 194 ==
LOC: JER 12:46 → JERBED 15:27 → J8W 18:58 → J5S 20:07
PROVIDERS: ADMIT Internal Medicine; ATTEND Nurse Practitioner Adult Health
DX: J18.9 Pneumonia, unspecified organism (principal); F11.20 Opioid dependence, uncomplicated; J96.10 Chronic respiratory failure, unspecified whether with hypoxia or hypercapnia; J44.9 Chronic obstructive pulmonary disease, unspecified; K22.8 Other specified diseases of esophagus; I11.0 Hypertensive heart disease with heart failure; R00.0 Tachycardia, unspecified; R50.9 Fever, unspecified; D64.9 Anemia, unspecified; M54.5 Low back pain; K21.9 Gastro-esophageal reflux disease without esophagitis; E78.5 Hyperlipidemia, unspecified; F41.8 Other specified anxiety disorders; E03.9 Hypothyroidism, unspecified; R94.4 Abnormal results of kidney function studies; Z88.0 Allergy status to penicillin; Z78.0 Asymptomatic menopausal state; Z93.0 Tracheostomy status; Z87.891 Personal history of nicotine dependence; Z21 Asymptomatic human immunodeficiency virus [HIV] infection status; Z85.21 Personal history of malignant neoplasm of larynx; Z90.02 Acquired absence of larynx
CPT/HCPCS: 36415; 71045-TC-FY; 71250-TC; 80048; 80053; 81003; 81015; 82803; 83605; 83735; 84484; 85025; 85027; 85610; 85730; 87040; 87086; 87186; 87804; 90688; 93005; 93010; 93306-TC; 99285-25; G0008; J0131

== ENCOUNTER 2018-06-25 13:43 | Emergency (ER) | payer OTHER ==
[2018-06-25 14:18] VITALS: BP 132/84; PULSE 81; TEMP 98.5; BMI 34.9
--- NOTE | 2018-06-25 14:42 | PDOC ---
History of Present Illness - General Chief Complaint: Edema Stated Complaint: RT SIDE FACIAL SWELLING Time Seen by Provider: 06/25/18 14:41 History Source: Patient, Old Records, Primary Care Provider Exam Limitations: No Limitations - History of Present Illness Initial Comments: 58 y/o female presenting to [facility] ER via private auto on referral from [facility] MANAGEMENT TECHNICIAN with concern for right sided face swelling. Pt states her daughter noticed the facial asymmetry this morning, and stephen her attention to it. Denies pain, intraoral lesions or drainage, sore throat, difficulty swallowing, difficulty breathing, headache, visual changes, fever, chills, diaphoresis. Denies history of similar. Denies recent dental work. Pt was discharge from this facility on 20 Jun 2018 for pneumonia. PCP: [facility] Medical Hx: - HIV (last CD4 05/01 in 400s) on HAART - COPD - CHF - Laryngeal ca s/p laryngectomy and trach Past History - Past Medical History Allergies/Adverse Reactions: Allergies Allergy/AdvReac Type Severity Reaction Status Date / Time latex Allergy Verified 06/25/18 14:12 levofloxacin [From Levaquin] Allergy Verified 06/25/18 14:12 Penicillins Allergy Verified 06/25/18 14:12 Home Medications: Ambulatory Orders Levothyroxine [Synthroid -] 112 mcg PO DAILY 01/09/18 Methadone [Dolophine -] 78 mg PO DAILY 01/09/18 Abacavir/Dolutegravir/Lamivudi [Triumeq 600-50-300 mg Tablet] 1 each PO DAILY # 30 tablet 02/13/18 Amlodipine Besylate [Norvasc -] 5 mg PO DAILY #30 tablet 02/13/18 Metoprolol Succinate [Toprol Xl] 25 mg PO DAILY #30 tab.er.24h 02/13/18 Multivitamin,Ther and Minerals [Vitamin and Minerals] 1 each PO DAILY #30 tablet 02/13/18 Albuterol 2.5/Ipratropium 0.5 [Duoneb -] 1 amp NEB Q6H PRN #30 amp 02/24/18 Clotrimazole/Betamet Diprop [Lotrisone -] 1 applic TP BID #1 tube 04/27/18 Folic Acid - 1 mg PO DAILY #30 tablet 06/01/18 Furosemide [Lasix] 40 mg PO DAILY #30 tablet 06/01/18 Guaifenesin Dm [Mucinex Dm -] 1 tab PO BID PRN #14 tab.er.12h 06/01/18 Pravastatin Sodium 10 mg PO HS #30 tablet 06/04/18 Pantoprazole Sodium [Protonix -] 40 mg PO DAILY tablet.ec 06/19/18 Mirtazapine [Remeron -] 30 mg PO DAILY #30 tablet 06/21/18 Quetiapine Fumarate [Seroquel -] 25 mg PO HS #30 tablet 06/21/18 Sertraline HCl [Zoloft -] 50 mg PO HS #30 tablet 06/21/18 traZODone HCL [Trazodone HCl] 50 mg PO HS #30 tablet 06/21/18 Acyclovir 1 applic TP Q4H #15 oint...g. 06/25/18 Valacyclovir HCl [Valtrex -] 2,000 mg PO BID #4 tablet 06/25/18 Anemia: No Asthma: No Cancer: Yes (throat w/tracheostomy) Cardiac Disorders: No CVA: No COPD: No CHF: No DVT: No Dementia: No Diabetes: No GI Disorders: No Disorders: No HTN: Yes Hypercholesterolemia: No Liver Disease: No Seizures: No Thyroid Disease: No - Surgical History Abdominal Surgery: No Appendectomy: No Cardiac Surgery: No Cholecystectomy: No Lung Surgery: No Neurologic Surgery: No Orthopedic Surgery: No (Larygotomy) - Immunization History Immunization Up to Date: Yes - Suicide/Smoking/Psychosocial Hx Smoking Status: No Smoking History: Former smoker Have you smoked in the past 12 months: No Number of Cigarettes Smoked Daily: 0 If you are a former smoker, when did you quit?: 2005 Cigars Per Day: 0 Information on smoking cessation initiated: No Hx Alcohol Use: No Drug/Substance Use Hx: Yes Substance Use Type: None Hx Substance Use Treatment: No Review of Systems - Review of Systems Able to Perform ROS?: Yes Comments:: Review of Systems: In addition to that documented in the HPI above, the additional ROS was obtained : Constitutional: Denies fevers or chills Eyes: Denies vision changes ENMT: Denies sore throat CV: Denies chest pain Resp: Denies SOB GI: Denies vomiting or diarrhea *Physical Exam - Vital Signs Last Vital Signs Temp Pulse Resp BP Pulse Ox 98.5 F 81 15 132/84 97 06/25/18 14:16 11/12/18 14:16 06/25/18 14:16 06/25/18 14:16 06/25/18 14:16 - Physical Exam Comments: Constitutional: Well-developed, well-nourished female in no acute distress or obvious discomfort. Found semi-fowlers in hospital bed. Alert and oriented x4. Answered all questions appropriately and completely. Speech was limited by pts . HEENT: Approx. 2cm x 2cm area of swelling to distal aspect of right mandible; no subjective tenderness; freely mobile small hard mass; no overlying skin lesions or obvious bony deformities. Intraoral cavity without lesions No obvious external signs of trauma. Neck is supple, trachea is midline. Cardiovascular: Regular rate and regular rhythm. No murmur, rubs, clicks, or gallops. Peripheral pulses: Radial pulses full. Respiratory: Breathing unlabored via trach with oxygen mask in place. Equal chest rise and fall. Clear to auscultation bilaterally. No stridor, no wheezing , no rhonchi. Neuro: Alert and oriented. Moving all four extremities spontaneously. Skin: Warm, dry, and intact. Psych: Affect: appropriate. Mood: normal. ED Treatment Course - LABORATORY CBC & Chemistry Diagram: 06/25/18 17:33 06/25/18 17:33 Medical Decision Making - Medical Decision Making *Reviewed vital signs, nursing notes, and prior visit documentation (if available). 58 y/o female with painless swelling to right mandible x1 day. Afebrile. Vitals unremarkable. Physical exam as described above. Suspect sialadenitis of submandibular gland vs submandibular abscess. Will obtain facial CT, CBC, BMP to further evaluate. CT of face revealed subcutaneous edema along right mandibular body laterally. Given this read, low suspicion for sialadenitis or abscess. No systemic signs. Will refer pt back to [facility] for outpatient follow up. On re-exam, swelling has not progressed. Remains non-tender. Discussed imaging and laboratory results with pt. Answered all questions. Provided return precautions. Pt expressed verbal understanding and agreement with plan to discharge home with outpatient follow up. Pt states she already has ENT clinic appointment scheduled for Monday (27 Jun 2018). *DC/Admit/Observation/Transfer Diagnosis at time of Disposition: Jaw inflammation, right - Discharge Dispostion Disposition: HOME Condition at time of disposition: Stable Decision to Admit order: No - Referrals - Patient Instructions Additional Instructions: The CT scan of your face showed a small amount of swelling along the right jaw. It did not show signs of infection, mass, or stones. Unfortunately, I do not have a reason for the swelling. Please return to the [facility] in the next 2-3 days to make sure the swelling is resolving. I have attached copies of your results from today's visit to this packet. Take this packet with you to the visit so your doctor can review it. Go to the nearest emergency department if your condition worsens or you feel like you need additional emergency evaluation. Print Language: AUSTRIAN - Post Discharge Activity
--- NOTE | 2018-06-25 15:06 | PDOC ---
Attending Attestation - HPI HPI: 06/25/18 16:00 The patient is a 58 year old Female with a significant past medical history of HIV (last CD4 05/01 in 400s) on HAART, COPD, CHF, laryngeal ca s/p laryngectomy and trach here today complaining of right facial swelling and mild pain today. She denies numbness, weakness, or tingling. The patient denies chest pain, shortness of breath, headache and dizziness. The patient denies fever, chills, nausea, vomit, diarrhea and constipation. The patient denies dysuria, frequency, urgency and hematuria. Allergies: NKDA - Physicial Exam PE: 06/25/18 16:00 Vitals: Triage vital signs reviewed General Appearance: No acute distress, well nourished, well developed Head: (+) right cheek swelling, sensation intact, small palpable questionable mass vs small to right cheek. Atraumatic Eyes: Pupils equal reactive round, extraocular movement intact Throat: (+) trach in place. mucous membranes moist Neck: Supple; No nuchal rigidity Chest Wall: Nontender Cardiac: Regular rate and rhythm, no murmurs, no rubs, no gallops Lungs: Clear to auscultation bilateral, good air movement bilaterally Extremities: Full range of motion to all extremities, no cyanosis, clubbing, or edema Skin: Warm and dry, no rashes or lesions, no rash, no petechiae Neuro: AOX3; Cranial Nerves 2-12 grossly intact, Strength intact to all extremities, Sensation intact to all extremities, gait normal Psych: Normal mood, normal affect - Medical Decision Making 06/25/18 16:02 Documentation prepared by Carmen Miller, acting as medical research tech for Kurt Knott MD <Carmen Miller - Last Filed: 06/25/18 16:00> - Resident Resident Name: Rnealdo Nguyen - ED Attending Attestation I have performed the following: I have examined & evaluated the patient, The case was reviewed & discussed with the resident, I agree w/resident's findings & plan, Exceptions are as noted - Medical Decision Making Swelling and small mass to right cheek CT with IV contrast pending Dr. Duarte to follow up results and reassess. <Kurt Knott - Last Filed: 06/25/18 16:26>
[2018-06-25 17:59] LABS: BASO % 0.7 % (0-2.0); EOS % 4.2 % (0-4.5); HEMATOCRIT 38.1 % (32.4-45.2); HEMOGLOBIN 12.2 GM/dL (10.7-15.3); LYMPH % 21.5 % (8-40); MCH 30.8 pg (25.7-33.7); MCHC 31.9 g/dl (32.0-36.0); MEAN CELL VOLUME 96.3 fl (80-96); MEAN PLT VOLUME 8.4 fl (7.5-11.1); MONO % 8.6 % (3.8-10.2); PLATELET COUNT 195 K/MM3 (134-434); RBC 3.95 M/mm3 (3.60-5.2); RDW 15.5 % (11.6-15.6); WHITE BLOOD COUNT 5.7 K/mm3 (4.0-10.0)
[2018-06-25 18:55] LABS: ANION GAP 5 MMOL/L (8-16); BLOOD UREA NITROGEN 9 mg/dL (7-18); CALCIUM 8.7 mg/dL (8.5-10.1); CHLORIDE 100 mmol/L (98-107); CO2 37 mmol/L (21-32); CREATININE 1.1 mg/dL (0.55-1.3); GLUCOSE,RANDOM 78 mg/dL (74-106); POTASSIUM 3.7 mmol/L (3.5-5.1); SODIUM 142 mmol/L (136-145)
== END 2018-06-25 19:13 | disposition home or self-care (01) ==
LOC: JER 13:43
DX: M27.2 Inflammatory conditions of jaws (principal); R59.0 Localized enlarged lymph nodes; I11.0 Hypertensive heart disease with heart failure; I50.9 Heart failure, unspecified; J44.9 Chronic obstructive pulmonary disease, unspecified; Z21 Asymptomatic human immunodeficiency virus [HIV] infection status; Z85.21 Personal history of malignant neoplasm of larynx; Z90.02 Acquired absence of larynx; Z93.0 Tracheostomy status
CPT/HCPCS: 36415; 70487-TC; 80048; 85025; 99284-25

== ENCOUNTER 2019-03-19 10:10 | Inpatient (IN) | payer OTHER ==
[2019-03-19] MEDS ORDERED: SODIUM CHLORIDE 2,585 ML IV ONE (10:27)
--- NOTE | 2019-03-19 10:38 | PDOC ---
History of Present Illness - General Chief Complaint: Shortness of Breath Stated Complaint: SOB History Source: Patient, Family Exam Limitations: No Limitations - History of Present Illness Initial Comments: 03/19/19 10:35 59YOF with h/o HIV (states adherent to HAART, last CD4 was 454 in 01/2019), laryngeal CA (s/p laryngectomy/trach, on 10 LPM supplemental O2), CHF, COPD, HTN , HLD, and hypothyroidism who p/w fever and SOB since last night. She denies any pain but does note generalized weakness and malaise. States she has felt exactly the same before and had PNA, which has happened more than once. UTD on immunizations. Notes chronic unchanged ankle swelling, no orthopnea, no productive cough, no wheezing, no sore throat. Past History - Past Medical History Allergies/Adverse Reactions: Allergies Allergy/AdvReac Type Severity Reaction Status Date / Time latex Allergy Verified 03/19/19 10:15 levofloxacin [From Levaquin] Allergy Verified 03/19/19 10:15 Penicillins Allergy Verified 03/19/19 10:15 Home Medications: Ambulatory Orders Methadone [Dolophine -] 78 mg PO DAILY 01/09/18 Fluticasone Prop 0.05% Nasal [Flonase -] 1 spray NS BID #1 spray.pump 11/22/18 Mirtazapine [Remeron -] 30 mg PO DAILY #30 tablet 01/16/19 Quetiapine Fumarate [Seroquel -] 25 mg PO HS #30 tablet 01/16/19 Sertraline HCl [Zoloft -] 50 mg PO HS #30 tablet 01/16/19 traZODone HCL [Trazodone HCl] 100 mg PO HS #30 tablet MDD 1 01/16/19 Abacavir/Dolutegravir/Lamivudi [Triumeq 600-50-300 mg Tablet] 1 each PO DAILY # 30 tablet 02/12/19 Albuterol 2.5/Ipratropium 0.5 [Duoneb -] 1 amp NEB Q6H PRN #30 amp 02/12/19 Amlodipine Besylate [Norvasc -] 5 mg PO DAILY #30 tablet 02/12/19 Folic Acid - 1 mg PO DAILY #30 tablet 02/12/19 Furosemide [Lasix -] 20 mg PO DAILY #30 tablet 02/12/19 Levothyroxine [Synthroid -] 112 mcg PO DAILY #30 tablet 02/12/19 Loratadine 10 mg PO DAILY PRN #30 tablet 02/12/19 Metoprolol Succinate [Toprol Xl] 25 mg PO DAILY #30 tab.er.24h 02/12/19 Montelukast Na [Singulair -] 10 mg PO HS #30 tablet 02/12/19 Multivitamin,Ther and Minerals [Vitamin and Minerals] 1 each PO DAILY #30 tablet 02/12/19 Pravastatin Sodium 10 mg PO HS #30 tablet 02/12/19 Anemia: No Asthma: No Cancer: Yes (layrengeal cancer) Cardiac Disorders: No CVA: No COPD: No CHF: No DVT: No Dementia: No Diabetes: No GI Disorders: No Disorders: No HTN: Yes Hypercholesterolemia: Yes Liver Disease: No Seizures: No Thyroid Disease: No - Surgical History Abdominal Surgery: No Appendectomy: No Cardiac Surgery: No Cholecystectomy: No Lung Surgery: No Neurologic Surgery: No Orthopedic Surgery: No (Larygotomy) - Immunization History Immunization Up to Date: Yes - Suicide/Smoking/Psychosocial Hx Smoking Status: No Smoking History: Former smoker Have you smoked in the past 12 months: No Number of Cigarettes Smoked Daily: 0 If you are a former smoker, when did you quit?: 10 YEARS Cigars Per Day: 0 Information on smoking cessation initiated: No Hx Alcohol Use: No Drug/Substance Use Hx: No Substance Use Type: None Hx Substance Use Treatment: No Respiratory Specific PMHX - Complaint Specific PMHX Pneumonia: No TB (Tuberculosis): No Review of Systems - Review of Systems Able to Perform ROS?: Yes Comments:: 03/19/19 10:59 GEN: fever, chills, malaise, generalized weakness, no weight change HEENT: no ear pain, sore throat, vision change, or eye pain CV: no chest pain, palpitations, lightheadedness, syncope, or edema RESP: SOB, no cough, no wheezing GI: no abdominal pain, nausea, vomiting, diarrhea, constipation, or white/black/ bloody stool : no dysuria, hematuria, incontinence, retention, bleeding, or discharge MSK: no neck/back pain, muscle weakness/pain, or joint swelling/pain NEURO: no headache, seizure, vertigo, numbness, tingling, or focal weakness PSYCH: no substance use, no behavior change SKIN: no jaundice, no rash ROS otherwise negative except as noted in HPI *Physical Exam - Vital Signs Last Vital Signs Temp Pulse Resp BP Pulse Ox 100.1 F H 117 H 20 131/80 77 L 03/19/19 10:15 03/19/19 10:15 03/19/19 10:15 03/19/19 10:15 03/19/19 10:15 - Physical Exam Comments: 03/19/19 11:01 GENERAL: well-appearing, A/Ox4, mild distress, answers questions appropriately HEENT: PERRLA, EOMI, moist mucous membranes NECK/BACK: no midline ttp, no spinal stepoff or deformity, no hematoma, full ROM , neck supple CARDIOVASCULAR: regular rate/rhythm, normal S1S2, no MGR, strong peripheral pulses, capillary refill <2 seconds, extremities wwp, no edema LUNGS/RESPIRATORY: right sided crackles diffusely, no respiratory distress, CTAB GI/ABDOMEN: symmetric [id number], normoactive BS, soft, no ttp, no midline pulsatile masses : no CVA tenderness EXTREMITIES: no muscle atrophy, no acute deformity SKIN: warm and dry, no pallor, no jaundice, no rash, no bruising, no skin breakdown, no cuts, no lesions NEUROLOGICAL: GCS 15, CN II-XII grossly intact, 5/5 strength proximally and distally, no facial droop Heart Score/ECG Review #1 Sinus rhythm, rate of 105, normal axis and intervals, one PVC, no ischemic ST-T changes ED Treatment Course - LABORATORY CBC & Chemistry Diagram: 03/21/19 08:30 03/21/19 08:30 - RADIOLOGY Radiology Studies Ordered: Category Date Time Status CHEST X-RAY PORTABLE* [RAD] Stat Radiology 03/19/19 10:28 Ordered Medical Decision Making - Medical Decision Making 03/19/19 10:37 59YOF with HIV, trach, CHF, and COPD p/w SOB, fever. Initial Vital Signs Temp Pulse Resp BP Pulse Ox 100.1 F H 117 H 20 131/80 77 L 03/19/19 10:15 03/19/19 10:15 03/19/19 10:15 03/19/19 10:15 03/19/19 10:15 Exam: As noted in Physical Exam section. DDX IBNLT: PNA (c/f PCP although Pt's last CD4 was 454), aspiration, bronchitis , COPD, CHF, other lung disease, viral URI (e.g. influenza), laryngitis, tracheitis, etc. W/U ordered: Septic w/u, labs as noted below, EKG, CXR TX ordered: Ofirmev IVF (1 liter as patient has h/o CHF and has crackles on lung exam) 03/19/19 11:[address] Landaverde on for ID from [facility] - he is aware of the patient, would tx for CAP. Orders placed for IVPB azithromycin and ceftriaxone. EKG: Reviewed; results as noted in ECG Review section. RAD/CHEST X-RAY PORTABLE* AP portable chest: Sepsis A single view the chest is been submitted. Since 06/15/2018 there are new bibasilar infiltrates with fluid and atelectasis. Again noted is a large heart with unfolded aorta. There is an oxygen mask present. The previously noted tracheostomy tube is no longer seen. There is an element of some congestion. The bones and soft tissues are intact. Correlation recommended. Laboratory Tests 03/19/19 03/19/19 03/19/19 11:00 11:00 11:00 WBC 10.1 H RBC 2.96 L Hgb 9.6 L Hct 29.7 L D MCV 100.0 H MCH 32.2 MCHC 32.2 RDW 14.3 Plt Count 230 MPV 8.1 Absolute Neuts (auto) 8.8 H Neutrophils % 87.2 H D Lymphocytes % 4.2 L D Monocytes % 8.3 Eosinophils % 0.0 D Basophils % 0.3 Nucleated RBC % 0 PT with INR INR PTT (Actin FS) VBG pH POC VBG pCO2 POC VBG pO2 VBG HCO3 VBG O2 Sat (Angie) VBG Base Excess Sodium 139 Potassium 3.7 Chloride 99 Carbon Dioxide 34 H Anion Gap 6 L BUN 13.4 Creatinine 1.3 Est GFR (CKD-EPI)AfAm 52.37 Est GFR (CKD-EPI)NonAf 45.18 Random Glucose 103 Lactic Acid Calcium 9.0 Total Bilirubin 0.5 AST 16 ALT 12 L Alkaline Phosphatase 105 Creatine Kinase 103 Troponin I < 0.02 Total Protein 7.8 Albumin 3.3 L Blood Type Antibody Screen 03/19/19 03/19/1903/19/19 11:00 11:00 11:00 WBC RBC Hgb Hct MCV MCH MCHC RDW Plt Count MPV Absolute Neuts (auto) Neutrophils % Lymphocytes % Monocytes % Eosinophils % Basophils % Nucleated RBC % PT with INR 14.80 H INR 1.25 H PTT (Actin FS) 31.5 VBG pH POC VBG pCO2 POC VBG pO2 VBG HCO3 VBG O2 Sat (Angie) VBG Base Excess Sodium Potassium Chloride Carbon Dioxide Anion Gap BUN Creatinine Est GFR (CKD-EPI)AfAm Est GFR (CKD-EPI)NonAf Random Glucose Lactic Acid 1.1 Calcium Total Bilirubin AST ALT Alkaline Phosphatase Creatine Kinase Troponin I Total Protein Albumin Blood Type B POSITIVE Antibody Screen Negative 03/19/19 11:00 WBC RBC Hgb Hct MCV MCH MCHC RDW Plt Count MPV Absolute Neuts (auto) Neutrophils % Lymphocytes % Monocytes % Eosinophils % Basophils % Nucleated RBC % PT with INR INR PTT (Actin FS) VBG pH 7.29 L POC VBG pCO2 69.4 H POC VBG pO2 26.0 L VBG HCO3 32.4 H VBG O2 Sat (Angie) 36.2 L VBG Base Excess 4.9 H Sodium Potassium Chloride Carbon Dioxide Anion Gap BUN Creatinine Est GFR (CKD-EPI)AfAm Est GFR (CKD-EPI)NonAf Random Glucose Lactic Acid Calcium Total Bilirubin AST ALT Alkaline Phosphatase Creatine Kinase Troponin I Total Protein Albumin Blood Type Antibody Screen The Pt is unsafe for discharge at this time. They require further hospital observation, workup, and treatment. Microblog sent to [facility] for admission. Blank Decision to Admit order is placed per ED protocol. *DC/Admit/Observation/Transfer Diagnosis at time of Disposition: Tracheostomy dependence Pneumonia Qualifiers: Pneumonia type: due to unspecified organism Laterality: right Lung location: unspecified part of lung Qualified Code(s): J18.9 - Pneumonia, unspecified organism HIV (human immunodeficiency virus infection) Qualifiers: HIV symptom status: unspecified Qualified Code(s): B20 - Human immunodeficiency virus [HIV] disease - Discharge Dispostion Condition at time of disposition: Guarded Decision to Admit order: Yes - Referrals - Patient Instructions - Post Discharge Activity
[2019-03-19] MEDS ORDERED: ACETAMINOPHEN 1000 MG/100 ML VIAL (NON FORMULARY) IVPB ONE (10:39)
[2019-03-19] MEDS ORDERED: SODIUM CHLORIDE 0.9% 500 ML INFUS.BAG IV ONE (11:01)
[2019-03-19 11:34] LABS: BASO % 0.3 % (0-2.0); HEMATOCRIT 29.7 % (32.4-45.2); HEMOGLOBIN 9.6 GM/dL (10.7-15.3); LYMPH % 4.2 % (8-40); MCH 32.2 pg (25.7-33.7); MCHC 32.2 g/dl (32.0-36.0); MEAN PLT VOLUME 8.1 fl (7.5-11.1); MONO % 8.3 % (3.8-10.2); NEUT % 87.2 % (42.8-82.8); PLATELET COUNT 230 K/MM3 (134-434); RBC 2.96 M/mm3 (3.60-5.2); RDW 14.3 % (11.6-15.6); WHITE BLOOD COUNT 10.1 K/mm3 (4.0-10.0)
[2019-03-19] MEDS ORDERED: CEFTRIAXONE 1,000 MG in DEXTROSE 5%-WATER - 50 ML IVPB ONE (11:35)
[2019-03-19] MEDS ORDERED: AZITHROMYCIN IVPB 500 MG in DEXTROSE 5%-WATER - 250 ML IVPB ONE (11:35)
[2019-03-19 11:37] LABS: VENOUS PC02 69.4 mmHg (41-51); VENOUS PH 7.29 (7.31-7.41)
[2019-03-19 12:01] LABS: ALBUMIN 3.3 g/dl (3.4-5.0); BILIRUBIN,TOTAL 0.5 mg/dL (0.2-1); BLOOD UREA NITROGEN 13.4 mg/dL (7-18); CREATININE 1.3 mg/dL (0.55-1.3); POTASSIUM 3.7 mmol/L (3.5-5.1); TOT PROT 7.8 g/dl (6.4-8.2)
[2019-03-19] MEDS ORDERED: AZITHROMYCIN IVPB 500 MG/250 ML BAG IVPB ONE (12:06)
[2019-03-19] MEDS ORDERED: ACETAMINOPHEN INJECTION 100 ML IVPB ONE (12:06)
[2019-03-19] MEDS ORDERED: CEFTRIAXONE 1 GM/50 ML BAG ONE (12:07)
--- NOTE | 2019-03-19 12:14 | PDOC ---
Attending Attestation - Resident Resident Name: Crystal Presley - ED Attending Attestation I have performed the following: I have examined & evaluated the patient, The case was reviewed & discussed with the resident, I agree w/resident's findings & plan - HPI HPI: 03/19/19 12:09 59-year-old female with multiple medical problems including hypertension, CHF, COPD, laryngeal CA status post trach on home oxygen at 10 L, HIV which is well- controlled presents with shortness of breath and fever/myalgia for about one day. - Physicial Exam PE: 03/19/19 12:09 Low-grade fever, tachycardia, hypoxia in the 70s when measured at triage, improves to 90% on stretcher Ambulating with trach in place, not in acute respiratory distress No JVD Heart is regular tachycardia Decreased breath sounds in the right mid and lower lung macdonald with crackles, positive air bronchograms on [id number] ultrasound abdomen benign - Critical Care Time Total Critical Care Time: 30 Critical Care Statement: The care of this patient involved high complexity decision making to prevent further life threatening deterioration of the patient 's condition and/or to evaluate & treat vital organ system(s) failure or risk of failure. - Medical Decision Making 03/19/19 12:11 59-year-old female with well-controlled HIV, COPD, CHF, trach collar presents with acute hypoxic respiratory failure, and the setting of fever likely secondary to pneumonia and sepsis. Sepsis protocol initiated Tylenol for fever IV fluids, supplemental oxygen Antibiotics for community-acquired pneumonia given immunocompetent state, discussed with Dr. Landaverde from the [facility] Admission given hypoxia Heart Score/ECG Review #1 ECG reviewed & interpreted by me at: 11:00 General ECG Interpretation: Sinus Rhythm (with PVC noted), Normal Rate (105), Normal Intervals (qtc 370), No acute ischemic changes (TWI I/AVL)
[2019-03-19 12:32] LABS: INR 1.25 (0.83-1.09); PROTHROMBIN TIME (PATIENT) 14.8 SEC (9.7-13.0)
[2019-03-19 12:34] LABS: ACTIVATED PTT 31.5 SECONDS (25.2-36.5)
[2019-03-19 13:32] LABS: HYALINE CASTS 10 /lpf (0-8); PH,URINE 5.5 (5.0-8.0); URINE APPEARANCE CLOUDY; URINE BACTERIA 117.2 /hpf (NEGATIVE); URINE BILIRUBIN NEGATIVE (NEGATIVE); URINE COLOR DK YELLOW; URINE GLUCOSE (UA) NEGATIVE (NEGATIVE); URINE KETONE TRACE (NEGATIVE); URINE LEUK ESTERASE NEGATIVE (NEGATIVE); URINE NITRITE NEGATIVE (NEGATIVE); URINE PROTEIN 2+ (NEGATIVE); URINE RBC 1 /hpf (0-4); URINE WBC 5 /hpf (0-5)
--- NOTE | 2019-03-19 14:13 | HP ---
CHIEF COMPLAINT: SOB; fevers PCP:Dr. Martinez HISTORY OF PRESENT ILLNESS: 59 y.o female with PMH of HIV (last CD4 was 454 in 01/2019 on HAART therapy), laryngeal ca ( s/p laryngostomy and tracheostomy 11 years ago) CHF, COPD, HTN, HLD presents to the ED with complaints of shortness of breath and fevers since last night. she states that monday she started to develop chills and yesterday she was having shortness of breath (baseline uses 10l o2 with her trach) and that wasn't enough for her- she states that she also felt that she was having a dry cough and that her secretions werent being broken up she took her temperature a few times and she was having low grade fevers- she lives with her agustin who is not sic; she denies any recent travel or any sick contacts- she denies any urinary or bowel complaints; no changes in her appetite ER course was notable for: (1) wbc 10.1 (2)CXR new bibasilar infiltrates with/ fluid and some congestion (3)given cef/azithro Recent Travel: denies PAST MEDICAL HISTORY: see above PAST SURGICAL HISTORY: tracheostomy Social History: Smoking:former smoker quit 15 years ag\o Alcohol:denies Drugs: denies Family History:mother; DM Allergies latex Allergy (Verified 03/19/19 10:15) levofloxacin [From Levaquin] Allergy (Verified 03/19/19 10:15) Penicillins Allergy (Verified 03/19/19 10:15) HOME MEDICATIONS: Home Medications Medication Instructions Recorded Methadone [Dolophine -] 78 mg PO DAILY 01/09/18 Valacyclovir HCl [Valtrex -] 2,000 mg PO BID #4 tablet 06/25/18 Fluticasone Prop 0.05% Nasal 1 spray NS BID #1 spray.pump 11/22/18 [Flonase -] Mirtazapine [Remeron -] 30 mg PO DAILY #30 tablet 01/16/19 Quetiapine Fumarate [Seroquel -] 25 mg PO HS #30 tablet 01/16/19 Sertraline HCl [Zoloft -] 50 mg PO HS #30 tablet 01/16/19 traZODone HCL [Trazodone HCl] 100 mg PO HS #30 tablet MDD 1 01/16/19 Abacavir/Dolutegravir/Lamivudi 1 each PO DAILY #30 tablet 02/12/19 [Triumeq 600-50-300 mg Tablet] Albuterol 2.5/Ipratropium 0.5 1 amp NEB Q6H PRN #30 amp 02/12/19 [Duoneb -] Amlodipine Besylate [Norvasc -] 5 mg PO DAILY #30 tablet 02/12/19 Folic Acid - 1 mg PO DAILY #30 tablet 02/12/19 Furosemide [Lasix -] 20 mg PO DAILY #30 tablet 02/12/19 Levothyroxine [Synthroid -] 112 mcg PO DAILY #30 tablet 02/12/19 Loratadine 10 mg PO DAILY PRN #30 tablet 02/12/19 Metoprolol Succinate [Toprol Xl] 25 mg PO DAILY #30 tab.er.24h 02/12/19 Montelukast Na [Singulair -] 10 mg PO HS #30 tablet 02/12/19 Multivitamin,Ther and Minerals 1 each PO DAILY #30 tablet 02/12/19 [Vitamin and Minerals] Pravastatin Sodium 10 mg PO HS #30 tablet 02/12/19 REVIEW OF SYSTEMS CONSTITUTIONAL: Absent: fever, chills, diaphoresis, generalized weakness, malaise, loss of appetite, weight change HEENT: Absent: rhinorrhea, nasal congestion, throat pain, throat swelling, difficulty swallowing, mouth swelling, ear pain, eye pain, visual changes CARDIOVASCULAR: Absent: chest pain, syncope, palpitations, irregular heart rate, lightheadedness , peripheral edema RESPIRATORY: Present: cough, shortness of breath Absent: , dyspnea with exertion, orthopnea, wheezing, stridor, hemoptysis GASTROINTESTINAL: Absent: abdominal pain, abdominal distension, nausea, vomiting, diarrhea, constipation, melena, hematochezia GENITOURINARY: Absent: dysuria, frequency, urgency, hesitancy, hematuria, flank pain, genital pain MUSCULOSKELETAL: Absent: myalgia, arthralgia, joint swelling, back pain, neck pain SKIN: Absent: rash, itching, pallor HEMATOLOGIC/IMMUNOLOGIC: Absent: easy bleeding, easy bruising, lymphadenopathy, frequent infections ENDOCRINE: Absent: unexplained weight gain, unexplained weight loss, heat intolerance, cold intolerance NEUROLOGIC: Absent: headache, focal weakness or paresthesias, dizziness, unsteady gait, seizure, mental status changes, bladder or bowel incontinence PSYCHIATRIC: Absent: anxiety, depression, suicidal or homicidal ideation, hallucinations. PHYSICAL EXAMINATION Vital Signs - 24 hr 03/19/19 03/19/19 10:15 11:30 Temperature 100.1 F H Pulse Rate 117 H Respiratory 20 Rate Blood Pressure 131/80 O2 Sat by Pulse 77 L 98 Oximetry (%) GENERAL: Awake, alert, and fully oriented, in slight acute distress. EYES: PEERLA: EOMI: no scleral icterus NECK:no JVD:; no lymphadenopathy LUNGS: coarse breath sounds B/L; no rales, wheezing HEART: Regular rate and rhythm, normal S1 and S2 without murmur, rub or gallop. ABDOMEN: Soft, distended; nontender, +BS in all 4 quadrants MUSCULOSKELETAL: Normal range of motion at all joints. No bony deformities or tenderness. No CVA tenderness. EXTREMITIES: warm; well-perfused no clubbing/cyanosis or edema NEUROLOGICAL: Cranial nerves II-XII intact. Normal speech. Normal gait. PSYCHIATRIC: Cooperative. Good eye contact. Appropriate mood and affect. SKIN: Warm, dry, normal turgor, no rashes or lesions noted, normal capillary refill. Laboratory Results - last 24 hr 03/19/19 03/19/19 03/19/19 11:00 11:00 11:00 WBC 10.1 H RBC 2.96 L Hgb 9.6 L Hct 29.7 L D MCV 100.0 H MCH 32.2 MCHC 32.2 RDW 14.3 Plt Count 230 MPV 8.1 Absolute Neuts (auto) 8.8 H Neutrophils % 87.2 H D Lymphocytes % 4.2 L D Monocytes % 8.3 Eosinophils % 0.0 D Basophils % 0.3 Nucleated RBC % 0 PT with INR INR PTT (Actin FS) VBG pH POC VBG pCO2 POC VBG pO2 VBG HCO3 VBG O2 Sat (Angie) VBG Base Excess Sodium 139 Potassium 3.7 Chloride 99 Carbon Dioxide 34 H Anion Gap 6 L BUN 13.4 Creatinine 1.3 Est GFR (CKD-EPI)AfAm 52.37 Est GFR (CKD-EPI)NonAf 45.18 Random Glucose 103 Lactic Acid Calcium 9.0 Total Bilirubin 0.5 AST 16 ALT 12 L Alkaline Phosphatase 105 Creatine Kinase 103 Troponin I < 0.02 Total Protein 7.8 Albumin 3.3 L Urine Color Urine Appearance Urine pH Ur Specific [place] Urine Protein Urine Glucose (UA) Urine Ketones Urine Blood Urine Nitrite Urine Bilirubin Urine Urobilinogen Ur Leukocyte Esterase Urine WBC (Auto) Urine RBC (Auto) Urine Casts (Auto) U Epithel Cells (Auto) U Sm Round Cell (Auto) Urine Bacteria (Auto) Blood Type Antibody Screen 03/19/19 03/19/19 03/19/19 11:00 11:00 11:00 WBC RBC Hgb Hct MCV MCH MCHC RDW Plt Count MPV Absolute Neuts (auto) Neutrophils % Lymphocytes % Monocytes % Eosinophils % Basophils % Nucleated RBC % PT with INR 14.80 H INR 1.25 H PTT (Actin FS) 31.5 VBG pH POC VBG pCO2 POC VBG pO2 VBG HCO3 VBG O2 Sat (Angie) VBG Base Excess Sodium Potassium Chloride Carbon Dioxide Anion Gap BUN Creatinine Est GFR (CKD-EPI)AfAm Est GFR (CKD-EPI)NonAf Random Glucose Lactic Acid 1.1 Calcium Total Bilirubin AST ALT Alkaline Phosphatase Creatine Kinase Troponin I Total Protein Albumin Urine Color Urine Appearance Urine pH Ur Specific [place] Urine Protein Urine Glucose (UA) Urine Ketones Urine Blood Urine Nitrite Urine Bilirubin Urine Urobilinogen Ur Leukocyte Esterase Urine WBC (Auto) Urine RBC (Auto) Urine Casts (Auto) U Epithel Cells (Auto) U Sm Round Cell (Auto) Urine Bacteria (Auto) Blood Type B POSITIVE Antibody Screen Negative 03/19/19 03/19/19 11:00 13:00 WBC RBC Hgb Hct MCV MCH MCHC RDW Plt Count MPV Absolute Neuts (auto) Neutrophils % Lymphocytes % Monocytes % Eosinophils % Basophils % Nucleated RBC % PT with INR INR PTT (Actin FS) VBG pH 7.29 L POC VBG pCO2 69.4 H POC VBG pO2 26.0 L VBG HCO3 32.4 H VBG O2 Sat (Angie) 36.2 L VBG Base Excess 4.9 H Sodium Potassium Chloride Carbon Dioxide Anion Gap BUN Creatinine Est GFR (CKD-EPI)AfAm Est GFR (CKD-EPI)NonAf Random Glucose Lactic Acid Calcium Total Bilirubin AST ALT Alkaline Phosphatase Creatine Kinase Troponin I Total Protein Albumin Urine Color Dk yellow Urine Appearance Cloudy Urine pH 5.5 Ur Specific [place] 1.028 Urine Protein 2+ H Urine Glucose (UA) Negative Urine Ketones Trace H Urine Blood Negative Urine Nitrite Negative Urine Bilirubin Negative Urine Urobilinogen 1.0 Ur Leukocyte Esterase Negative Urine WBC (Auto) 5 Urine RBC (Auto) 1 Urine Casts (Auto) 10 U Epithel Cells (Auto) 10.0 U Sm Round Cell (Auto) None seen Urine Bacteria (Auto) 117.2 Blood Type Antibody Screen ASSESSMENT/PLAN: 59 y.o female with PMH of HIV (last CD4 was 454 in 01/2019 on HAART therapy), laryngeal ca ( s/p laryngostomy and tracheostomy 11 years ago) CHF, COPD, HTN, HLD presents to the ED with complaints of shortness of breath and fevers since last night found to have pneumonia. # Acute Onset Shortness of Breath 2/2 Pneumonia -CXR showed bibasilar infiltrates with some fluid -will c/w ceftriaxone and azithromycin -speech and swallow eval -pulm consult -will repeat CXR in AM -aspiration precautions -NPO until speech and swallow eval #HTN -will continue with metoprolol 25 daily -c/w norvasc 5 daily #CHF - will c/w lasix 20 mg daily #COPD not in acute exacerbation -c/w duonebs PRN -c/w singulair -maintain o2 sats between 88-92% -o2 PRN #HIV on HAART therapy; last CD4 was 454 in 01/2019 -will c/w Triumeq -ID consulted F/E/N not on fluids monitor electrolytes NPO until speech and swallow eval Problem List - Problem (1) Pneumonia Code(s): J18.9 - PNEUMONIA, UNSPECIFIED ORGANISM Qualifiers: Pneumonia type: due to unspecified organism Laterality: right Lung location: unspecified part of lung Qualified Code(s): J18.9 - Pneumonia, unspecified organism (2) Tracheostomy dependence Code(s): Z93.0 - TRACHEOSTOMY STATUS (3) HIV (human immunodeficiency virus infection) Code(s): Z21 - ASYMPTOMATIC HUMAN IMMUNODEFICIENCY VIRUS INFECTION STATUS Visit type - Emergency Visit Emergency Visit: Yes ED Registration Date: 03/19/19 Care time: The patient presented to the Emergency Department on the above date and was hospitalized for further evaluation of their emergent condition. - New Patient This patient is new to me today: Yes Date on this admission: 03/19/19 - Critical Care Critical Care patient: No ATTENDING PHYSICIAN STATEMENT I saw and evaluated the patient. I reviewed the resident's note and discussed the case with the resident. I agree with the resident's findings and plan as documented. SUBJECTIVE: OBJECTIVE: ASSESSMENT AND PLAN:
--- NOTE | 2019-03-19 14:29 | EKG ---
Test Reason : Blood Pressure : / mmHG Vent. Rate : 105 BPM Atrial Rate : 105 BPM P-R Int : 138 ms QRS Dur : 084 ms QT Int : 280 ms P-R-T Axes : 059 -05 082 degrees QTc Int : 370 ms SINUS TACHYCARDIA WITH OCCASIONAL PREMATURE VENTRICULAR COMPLEXES BIATRIAL ENLARGEMENT NONSPECIFIC T WAVE ABNORMALITY ABNORMAL ECG Confirmed by MD RALEIGH, DARRIN ([id number]) on 03/19/2019 2:29:52 PM Referred By: Confirmed By:DARRIN STOREY MD
[2019-03-19] MEDS: HEPARIN NA (PORCINE) 5,000 UNITS/ML 1ML VIAL SQ SCH ×2 (14:31→21:38)
--- NOTE | 2019-03-19 14:49 | PN ---
Teaching Attending Note Name of Resident: Vera Little ATTENDING PHYSICIAN STATEMENT I saw and evaluated the patient. I reviewed the resident's note and discussed the case with the resident. I agree with the resident's findings and plan as documented. SUBJECTIVE: Feeling less SOB. No chills. No Chest pain/palpitations. OBJECTIVE: Tmax 100.1, Hemodynamically Stable. Comfortable. Last Vital Signs Temp Pulse Resp BP Pulse Ox 100.1 F H 117 H 20 131/80 98 03/19/19 10:15 03/19/19 10:15 03/19/19 10:15 03/19/19 10:15 03/19/19 11:30 HEENT - Trach - on 10L O2. Heart - S1, S2, RRR Lungs - Bibasal crackles Abdomen - High BMI, Soft non-tender. Bowel Sounds normal. Extremities - LE Edema+ Laboratory Results - last 24 hr 03/19/19 03/19/19 03/19/19 11:00 11:00 11:00 WBC 10.1 H RBC 2.96 L Hgb 9.6 L Hct 29.7 L D MCV 100.0 H MCH 32.2 MCHC 32.2 RDW 14.3 Plt Count 230 MPV 8.1 Absolute Neuts (auto) 8.8 H Neutrophils % 87.2 H D Lymphocytes % 4.2 L D Monocytes % 8.3 Eosinophils % 0.0 D Basophils % 0.3 Nucleated RBC % 0 PT with INR INR PTT (Actin FS) VBG pH POC VBG pCO2 POC VBG pO2 VBG HCO3 VBG O2 Sat (Angie) VBG Base Excess Sodium 139 Potassium 3.7 Chloride 99 Carbon Dioxide 34 H Anion Gap 6 L BUN 13.4 Creatinine 1.3 Est GFR (CKD-EPI)AfAm 52.37 Est GFR (CKD-EPI)NonAf 45.18 Random Glucose 103 Lactic Acid Calcium 9.0 Total Bilirubin 0.5 AST 16 ALT 12 L Alkaline Phosphatase 105 Creatine Kinase 103 Troponin I < 0.02 Total Protein 7.8 Albumin 3.3 L Urine Color Urine Appearance Urine pH Ur Specific [place] Urine Protein Urine Glucose (UA) Urine Ketones Urine Blood Urine Nitrite Urine Bilirubin Urine Urobilinogen Ur Leukocyte Esterase Urine WBC (Auto) Urine RBC (Auto) Urine Casts (Auto) U Epithel Cells (Auto) U Sm Round Cell (Auto) Urine Bacteria (Auto) Blood Type Antibody Screen 03/19/19 03/19/19 03/19/19 11:00 11:00 11:00 WBC RBC Hgb Hct MCV MCH MCHC RDW Plt Count MPV Absolute Neuts (auto) Neutrophils % Lymphocytes % Monocytes % Eosinophils % Basophils % Nucleated RBC % PT with INR 14.80 H INR 1.25 H PTT (Actin FS) 31.5 VBG pH POC VBG pCO2 POC VBG pO2 VBG HCO3 VBG O2 Sat (Angie) VBG Base Excess Sodium Potassium Chloride Carbon Dioxide Anion Gap BUN Creatinine Est GFR (CKD-EPI)AfAm Est GFR (CKD-EPI)NonAf Random Glucose Lactic Acid 1.1 Calcium Total Bilirubin AST ALT Alkaline Phosphatase Creatine Kinase Troponin I Total Protein Albumin Urine Color Urine Appearance Urine pH Ur Specific [place] Urine Protein Urine Glucose (UA) Urine Ketones Urine Blood Urine Nitrite Urine Bilirubin Urine Urobilinogen Ur Leukocyte Esterase Urine WBC (Auto) Urine RBC (Auto) Urine Casts (Auto) U Epithel Cells (Auto) U Sm Round Cell (Auto) Urine Bacteria (Auto) Blood Type B POSITIVE Antibody Screen Negative 03/19/19 03/19/19 11:00 13:00 WBC RBC Hgb Hct MCV MCH MCHC RDW Plt Count MPV Absolute Neuts (auto) Neutrophils % Lymphocytes % Monocytes % Eosinophils % Basophils % Nucleated RBC % PT with INR INR PTT (Actin FS) VBG pH 7.29 L POC VBG pCO2 69.4 H POC VBG pO2 26.0 L VBG HCO3 32.4 H VBG O2 Sat (Angie) 36.2 L VBG Base Excess 4.9 H Sodium Potassium Chloride Carbon Dioxide Anion Gap BUN Creatinine Est GFR (CKD-EPI)AfAm Est GFR (CKD-EPI)NonAf Random Glucose Lactic Acid Calcium Total Bilirubin AST ALT Alkaline Phosphatase Creatine Kinase Troponin I Total Protein Albumin Urine Color Dk yellow Urine Appearance Cloudy Urine pH 5.5 Ur Specific [place] 1.028 Urine Protein 2+ H Urine Glucose (UA) Negative Urine Ketones Trace H Urine Blood Negative Urine Nitrite Negative Urine Bilirubin Negative Urine Urobilinogen 1.0 Ur Leukocyte Esterase Negative Urine WBC (Auto) 5 Urine RBC (Auto) 1 Urine Casts (Auto) 10 U Epithel Cells (Auto) 10.0 U Sm Round Cell (Auto) None seen Urine Bacteria (Auto) 117.2 Blood Type Antibody Screen Current Medications Generic Name Dose Route Start Last Admin Trade Name Freq PRN Reason Stop Dose Admin Heparin Sodium (Porcine) 5,000 unit 03/19/19 14:00 03/19/19 14:31 Heparin - SQ 5,000 unit TID LOI Administration Ceftriaxone Sodium 1 gm/ 100 mls @ 200 mls/hr 03/20/19 10:00 Dextrose IVPB DAILY [facility] Protocol Azithromycin 250 mg/ Dextrose 250 mls @ 250 mls/hr 03/20/19 10:00 IVPB DAILY [facility] Home Medications Medication Instructions Recorded Methadone [Dolophine -] 78 mg PO DAILY 01/09/18 Fluticasone Prop 0.05% Nasal 1 spray NS BID #1 spray.pump 11/22/18 [Flonase -] Mirtazapine [Remeron -] 30 mg PO DAILY #30 tablet 01/16/19 Quetiapine Fumarate [Seroquel -] 25 mg PO HS #30 tablet 01/16/19 Sertraline HCl [Zoloft -] 50 mg PO HS #30 tablet 01/16/19 traZODone HCL [Trazodone HCl] 100 mg PO HS #30 tablet MDD 1 01/16/19 Abacavir/Dolutegravir/Lamivudi 1 each PO DAILY #30 tablet 02/12/19 [Triumeq 600-50-300 mg Tablet] Albuterol 2.5/Ipratropium 0.5 1 amp NEB Q6H PRN #30 amp 02/12/19 [Duoneb -] Amlodipine Besylate [Norvasc -] 5 mg PO DAILY #30 tablet 02/12/19 Folic Acid - 1 mg PO DAILY #30 tablet 02/12/19 Furosemide [Lasix -] 20 mg PO DAILY #30 tablet 02/12/19 Levothyroxine [Synthroid -] 112 mcg PO DAILY #30 tablet 02/12/19 Loratadine 10 mg PO DAILY PRN #30 tablet 02/12/19 Metoprolol Succinate [Toprol Xl] 25 mg PO DAILY #30 tab.er.24h 02/12/19 Montelukast Na [Singulair -] 10 mg PO HS #30 tablet 02/12/19 Multivitamin,Ther and Minerals 1 each PO DAILY #30 tablet 02/12/19 [Vitamin and Minerals] Pravastatin Sodium 10 mg PO HS #30 tablet 02/12/19 ASSESSMENT/PLAN: 59 year old female with history of HIV on HAART, Ex-IVDU (on Methadone), Laryngeal Ca s/p Laryngectomy and Tracheostomy > 10 years ago, COPD, CRF on 10L O2 via Trach, HTN, HLD, Depression/Anxiety, presents with 1 day history of SOB/ fevers/chills, with increased oxygen demands. CXR - bibasilar Infiltrates. 1. Acute on Chronic Respiratory failure secondary to Bilateral Pneumonia T 100.1, no leukocytosis, lactic acid normal. Received Ceftriaxone/Azithromycin in ED - ? need to cover for Pseudomonas given Trach, will defer to ID. Speech/Swallow eval for possible aspiration. ID/Pulmonary Consult. 2. COPD - no clear evidence of decompensation Regular Bronchodilator Nebs. No need for steroid currently. 3. HTN - Continue Metoprolol, Norvasc. 4. HIV on HAART - ID following. 5. Chronic Diastolic CHF - some congestion on CXR. No additional IV fluids for now. 6. Depression/Anxiety - Continue Zoloft, Seroquel, Remeron 7. HLD - Continue Statin. 8. Hypothyroidism - continue Levothyroxine. 9. Hx IVDU - on Methadone DVT Px - Heparin SQ.
--- NOTE | 2019-03-19 15:46 | CONSULT ---
Admitting History and Physical - Primary Care Physician PCP: Luis Mace - Admission History of Present Illness: Per EMR- 59 year old female with history of HIV on HAART, Ex-IVDU (on Methadone), Laryngeal Ca s/p Laryngectomy and Tracheostomy > 10 years ago, COPD, CRF on 10L O2 via Trach, HTN, HLD,Depression/Anxiety, presents with 1 day history of SOB/ fevers/chills, with increased oxygen demands. CXR - bibasilar Infiltrates. Seen by me 06/2018 -Impression: 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 Mouths words with occasional audible word, likely vibration of P-E segment.Pt educated on esophageal voice with immediate success in producing tone (burp) and some words. Pt has EXCELLENT potential to speak using esophageal voice. Pt feels she is aspirating but denies food out of trach, just up through nose. She required esoph dilatation by GI at [facility] x yr ago. I suspect this needs to be done again- possibly scarring with h/o RT, resulting in food hanging up and being pushed up nasopharynx. With laryngectomy, there is no communication b/n lungs and esophagus unless a fistula has formed, which is unlikely with pt's symptoms. Recommendations: GI Consult (as out pt f/u for esophagram r/o stricture, indication for dilatation.), Other (chew well, alternate with liquid to reduce esoph build up. OOB for all meals. Upright 1 hour after meals and no PO intake with 2 hours of bedtime. GERD precautions-minimize caffeine, carbonation, citrus , spicy foods, OPD Speech therapy at [facility] for esophageal voice training) Reviewed rec for out pt speech therapy for esophageal speech and f/u by GI with c/o nasopharyngeal regurgitation. Pt reports food continues to come up to nasopharynx and was told that his is normal. History Source: Family Member - Past Medical History Cardiovascular: Yes: HTN Pulmonary: Yes: Asthma, COPD, O2 Dependent, Other (trach/h/o laryngeal ca) Heme/Onc: Yes: Anemia Infectious Disease: Yes: HIV Psych: Yes: Addictions (now on methadone) - Smoking History Smoking history: Former smoker Have you smoked in the past 12 months: No Aproximately how many cigarettes per day: 0 If you are a former smoker, when did you quit?: 10 YEARS - Alcohol/Substance Use Hx Alcohol Use: No - Social History History of Recent Travel: No History - Admission Reason For Visit: HUMAN IMMUNODEFICIENCY VIRUS; HX TRACH; PNEUMONIA - Diagnostics X-ray: Report Reviewed - General Mental Status: Alert and Oriented, Awake and Alert, Able to Follow Commands Attention: Intact Ability to Follow Directions: Excellent Head/Neck Control: WFL - Hearing Hearing: Functional Speech Evaluation - Communication Primary Language: SERBIAN Oral Expression Ability: Yes: Non-Vocal (Laryngectomy) - Speech Characteristics Articulation: Yes: Precise - Language/Auditory Comprehension Observation: Able to respond to yes/no queries: Yes, Comprehends Conversational Speech: Yes - Language/Verbal Expression Functional Communication Status: Yes: WNL (mouths words. Has electrolarynx and was seen for speech tx in but "couldn't be bothered") - Swallow Evaluation/Bedside Assessment Current Nutritional Intake: NPO Dentition: Yes: Adequate, Dental Appliance Upper, Dental Appliance Lower Facial Symmetry at Rest: Symmetrical Facial Symmetry on Retraction: Symmetrical Against Resistance Opening: Normal Against Resistance Closing: Normal Pucker Lips: Normal Smile: Normal Lingual Movement: Normal, Symmetric Lingual Speed of Movement: Normal Lingual Movement Strgth Against Opposition: Normal Lingual Movement Characteristics: Normal A-P Transit: WFL Coughing/Throat Clear: No Recommendations - Speech Evaluation, Impression/Plan Impression: With total laryngectomy, there is no communication b/n lungs and esophagus unless a fistula has formed, which is unlikely with pt's symptoms. Doubt aspiration. Pt continues to report nasopharyngeal reflux of food and per pt,was told that is normal in [facility]. Pt reports she had esophagus dilated 2 years ago. She said when she eats,a chunk of food sometimes gets caught and she coughs and it comes up into her nose. r/o Esophageal Dysphagia? - Recommendations Diet Consistency: Regular (soft, easdy to chew) Medication Administration: Whole with water Liquids: Thin Liquids
--- NOTE | 2019-03-19 17:02 | PN ---
Progress Note (short form) - Note Progress Note: ID consult dictated imp/reccd 59 yo diabetic female admitted from home PMH of stable HIV-cd4 454, laryngeal cancer with laryngectomy and trach- she has copd and chf and is on home oxygen no history of recent substance use recent travel to [place] and [place]- returned March 14 developed chills on Monday with SOB and dry cough, today was hypoxic and came to ED constipation cxray with bibasilar pneumonia- treated with rocephin/zithromax with improvement now resting comfortably remote history of pen allergy as baby (was told this by her mom) tolerated ceftriaxone in ED history of levaquin allergy (rash) no recent admissions no recent antibiotics would continue treatment of pneumonia -CAP- with rocephin and zithromax f/u cultures f/u urinary antigens hiv- continue triumeq new anemia- macrocytic, recent tsh normal- per primary service Problem List - Problems (1) CAP (community acquired pneumonia) Code(s): J18.9 - PNEUMONIA, UNSPECIFIED ORGANISM (2) HIV (human immunodeficiency virus infection) Code(s): Z21 - ASYMPTOMATIC HUMAN IMMUNODEFICIENCY VIRUS INFECTION STATUS (3) Anemia Code(s): D64.9 - ANEMIA, UNSPECIFIED (4) Carcinoma larynx Code(s): C32.9 - MALIGNANT NEOPLASM OF LARYNX, UNSPECIFIED
[2019-03-19] MEDS: ABACAVIR/DOLUTEGRAVIR/LAMIVUDI (TRIUMEQ) TABLET -NF PO SCH (17:36)
[2019-03-19] MEDS ORDERED: PT OWN MED DRAWER 7, Y5N ONE (17:54)
[2019-03-19] MEDS ORDERED: ACETAMINOPHEN WITH CODEINE 300MG/30MG TABLET PO PRN (22:49)
[2019-03-19] MEDS ORDERED: ACETAMINOPHEN 325 MG TABLET (FP) PO PRN (22:57)
[2019-03-19] MEDS ORDERED: ACETAMINOPHEN 325 MG TABLET (FP) ONE (23:01)
[2019-03-20] MEDS: HEPARIN NA (PORCINE) 5,000 UNITS/ML 1ML VIAL SQ SCH ×3 (06:07→21:21)
[2019-03-20 08:07] LABS: BASO % 0.2 % (0-2.0); EOS % 0.5 % (0-4.5); HEMATOCRIT 27.7 % (32.4-45.2); HEMOGLOBIN 8.8 GM/dL (10.7-15.3); LYMPH % 11.6 % (8-40); MCH 31.7 pg (25.7-33.7); MCHC 31.8 g/dl (32.0-36.0); MEAN CELL VOLUME 99.6 fl (80-96); MONO % 12.8 % (3.8-10.2); NEUT % 74.9 % (42.8-82.8); PLATELET COUNT 216 K/MM3 (134-434); RBC 2.78 M/mm3 (3.60-5.2); RDW 14.4 % (11.6-15.6); WHITE BLOOD COUNT 7.2 K/mm3 (4.0-10.0)
--- NOTE | 2019-03-20 08:09 | PN ---
<Jose Ware - Last Filed: 03/21/19 13:26> Physical Exam: SUBJECTIVE: Patient seen and examined OBJECTIVE: Vital Signs Period Temp Pulse Resp BP Sys/Brandt Pulse Ox Last 24 Hr 97.5 F-98.9 F 75-98 20-22 110-126/69-79 99 GENERAL: The patient is awake, alert, and fully oriented, in no acute distress. HEAD: Normal with no signs of trauma. EYES: PERRL, extraocular movements intact, sclera anicteric, conjunctiva clear. No ptosis. ENT: Ears normal, nares patent, oropharynx clear without exudates, moist mucous membranes. NECK: Trachea midline, full range of motion, supple. LUNGS: Breath sounds equal, clear to auscultation bilaterally, no wheezes, no crackles, no accessory muscle use. HEART: Regular rate and rhythm, S1, S2 without murmur, rub or gallop. ABDOMEN: Soft, nontender, nondistended, normoactive bowel sounds, no guarding, no rebound, no hepatosplenomegaly, no masses. EXTREMITIES: 2+ pulses, warm, well-perfused, no edema. NEUROLOGICAL: Cranial nerves II through XII grossly intact. Normal speech, gait not observed. PSYCH: Normal mood, normal affect. SKIN: Warm, dry, normal turgor, no rashes or lesions noted Laboratory Results - last 24 hr 03/21/19 03/21/19 08:30 08:30 WBC 8.4 RBC 2.79 L Hgb 8.9 L Hct 27.4 L MCV 98.2 H MCH 31.7 MCHC 32.3 RDW 14.5 Plt Count 251 MPV 7.4 L Sodium 143 Potassium 4.1 Chloride 105 Carbon Dioxide 35 H Anion Gap 3 L BUN 9.7 Creatinine 0.8 Est GFR (CKD-EPI)AfAm 94.19 Est GFR (CKD-EPI)NonAf 81.27 Random Glucose 102 Calcium 9.0 Total Bilirubin 0.2 AST 13 L ALT 9 L Alkaline Phosphatase 100 Total Protein 6.9 Albumin 2.6 L Active Medications Generic Name Dose Route Start Last Admin Trade Name Freq PRN Reason Stop Dose Admin Abacavir/Dolutegravir/Lamivudine 1 each 03/19/19 16:45 03/21/19 10:29 Triumeq (Non-Formulary) PO 1 each DAILY LOI Administration Acetaminophen 650 mg 03/19/19 22:57 03/19/19 23:05 Tylenol - PO 650 mg Q6H PRN Administration PAIN Albuterol Sulfate 1 amp 03/20/19 08:40 Ventolin 0.083% Nebulizer Soln - NEB Q4H PRN SHORT OF BREATH/WHEEZING Albuterol/Ipratropium 1 amp 03/20/19 14:00 03/21/19 07:46 Duoneb - NEB 1 amp RTID LOI Administration Amlodipine Besylate 5 mg 03/21/19 10:00 03/21/19 10:25 Norvasc - PO Not Given DAILY LOI Atorvastatin Calcium 10 mg 03/20/19 22:00 03/20/19 21:20 Lipitor - PO 10 mg HS LOI Administration Fluticasone Propionate 1 spray 03/20/19 22:00 03/21/19 10:33 Flonase - NS Not Given BID LOI Folic Acid 1 mg 03/21/19 10:00 03/21/19 10:31 Folic Acid - PO 1 mg DAILY LOI Administration Furosemide 20 mg 03/21/19 10:00 03/21/19 10:25 Lasix - PO Not Given DAILY LOI Heparin Sodium (Porcine) 5,000 unit 03/19/19 14:00 03/21/19 06:24 Heparin - SQ 5,000 unit TID LOI Administration Azithromycin 250 mg/ Dextrose 250 mls @ 250 mls/hr 03/20/19 10:00 03/21/19 11 :52 IVPB 250 mls/hr DAILY LOI Administration Ceftriaxone Sodium 2 gm/ 100 mls @ 200 mls/hr 03/20/19 10:00 03/21/19 10:26 Dextrose IVPB 200 mls/hr DAILY LOI Administration Protocol Levothyroxine Sodium 112 mcg 03/21/19 07:00 03/21/19 06:19 Synthroid - PO 112 mcg DAILY@0700 LOI Administration Loratadine 10 mg 03/20/19 16:44 Claritin - PO DAILY PRN allergies Methadone HCl 40 mg/ Methadone 77.5 mg 03/20/19 13:30 03/21/19 06:21 HCl 30 mg/ Methadone HCl 7.5 PO 77.5 mg mg 0600 LOI Administration Methylprednisolone Sodium Succinate 60 mg 03/20/19 10:00 03/21/19 10:27 Solu-Medrol - IVPUSH 60 mg DAILY LOI Administration Metoprolol Succinate 25 mg 03/21/19 10:00 03/21/19 10:27 Toprol Xl - PO Not Given DAILY LOI Mirtazapine 30 mg 03/21/19 22:00 Remeron - PO HS LOI Montelukast Sodium 10 mg 03/20/19 22:00 03/20/19 21:20 Singulair - PO 10 mg HS LOI Administration Multivitamins/Minerals 1 each 03/21/19 10:00 03/21/19 10:33 Theragran-M PO Not Given DAILY LOI Quetiapine Fumarate 25 mg 03/20/19 22:00 03/20/19 21:21 Seroquel - PO 25 mg HS LOI Administration Sertraline HCl 50 mg 03/21/19 10:00 03/21/19 10:31 Zoloft - PO 50 mg DAILY LOI Administration Trazodone HCl 100 mg 03/21/19 22:00 Desyrel - PO HS LOI ASSESSMENT/PLAN: Problem List - Problems (1) CAP (community acquired pneumonia) Code(s): J18.9 - PNEUMONIA, UNSPECIFIED ORGANISM (2) HIV (human immunodeficiency virus infection) Code(s): Z21 - ASYMPTOMATIC HUMAN IMMUNODEFICIENCY VIRUS INFECTION STATUS (3) COPD (chronic obstructive pulmonary disease) Code(s): J44.9 - CHRONIC OBSTRUCTIVE PULMONARY DISEASE, UNSPECIFIED Qualifiers: COPD type: unspecified COPD Qualified Code(s): J44.9 - Chronic obstructive pulmonary disease, unspecified (4) Carcinoma larynx Code(s): C32.9 - MALIGNANT NEOPLASM OF LARYNX, UNSPECIFIED (5) Anemia Code(s): D64.9 - ANEMIA, UNSPECIFIED (6) Tracheostomy dependence Code(s): Z93.0 - TRACHEOSTOMY STATUS ATTENDING PHYSICIAN STATEMENT I saw and evaluated the patient. I reviewed the resident's note and discussed the case with the resident. I agree with the resident's findings and plan as documented. SUBJECTIVE: OBJECTIVE: ASSESSMENT AND PLAN: <Eriberto Davenport - Last Filed: 03/22/19 17:36> Physical Exam: SUBJECTIVE: Patient seen and examined AOx3 OBJECTIVE: Vital Signs Period Temp Pulse Resp BP Sys/Brandt Pulse Ox Last 24 Hr 98.3 F-100.1 F 91-117 20-20 106-131/63-80 77-98 GENERAL: Awake, alert, and fully oriented, in no acute distress. EYES: PEERLA: EOMI: no scleral icterus NECK:no JVD:; no lymphadenopathy LUNGS: wheezes B/L; crackles at bases B/L HEART: Regular rate and rhythm, normal S1 and S2 without murmur, rub or gallop. ABDOMEN: Soft, non distended, nontender, MUSCULOSKELETAL: Normal range of motion at all joints. No bony deformities or tenderness. EXTREMITIES: warm; well-perfused no clubbing/cyanosis or edema NEUROLOGICAL: Cranial nerves II-XII intact. Normal speech. Normal gait. PSYCHIATRIC: Cooperative. Good eye contact. Appropriate mood and affect. SKIN: Warm, dry, normal turgor, no rashes or lesions noted, normal capillary refill. Laboratory Results - last 24 hr 03/19/19 03/19/19 03/19/19 11:00 11:00 11:00 WBC 10.1 H RBC 2.96 L Hgb 9.6 L Hct 29.7 L D MCV 100.0 H MCH 32.2 MCHC 32.2 RDW 14.3 Plt Count 230 MPV 8.1 Absolute Neuts (auto) 8.8 H Neutrophils % 87.2 H D Lymphocytes % 4.2 L D Monocytes % 8.3 Eosinophils % 0.0 D Basophils % 0.3 Nucleated RBC % 0 PT with INR INR PTT (Actin FS) VBG pH POC VBG pCO2 POC VBG pO2 VBG HCO3 VBG O2 Sat (Angie) VBG Base Excess Sodium 139 Potassium 3.7 Chloride 99 Carbon Dioxide 34 H Anion Gap 6 L BUN 13.4 Creatinine 1.3 Est GFR (CKD-EPI)AfAm 52.37 Est GFR (CKD-EPI)NonAf 45.18 Random Glucose 103 Lactic Acid Calcium 9.0 Total Bilirubin 0.5 AST 16 ALT 12 L Alkaline Phosphatase 105 Creatine Kinase 103 Troponin I < 0.02 Total Protein 7.8 Albumin 3.3 L Urine Color Urine Appearance Urine pH Ur Specific [place] Urine Protein Urine Glucose (UA) Urine Ketones Urine Blood Urine Nitrite Urine Bilirubin Urine Urobilinogen Ur Leukocyte Esterase Urine WBC (Auto) Urine RBC (Auto) Urine Casts (Auto) U Epithel Cells (Auto) U Sm Round Cell (Auto) Urine Bacteria (Auto) Blood Type Antibody Screen 03/19/19 03/19/19 03/19/19 11:00 11:00 11:00 WBC RBC Hgb Hct MCV MCH MCHC RDW Plt Count MPV Absolute Neuts (auto) Neutrophils % Lymphocytes % Monocytes % Eosinophils % Basophils % Nucleated RBC % PT with INR 14.80 H INR 1.25 H PTT (Actin FS) 31.5 VBG pH POC VBG pCO2 POC VBG pO2 VBG HCO3 VBG O2 Sat (Angie) VBG Base Excess Sodium Potassium Chloride Carbon Dioxide Anion Gap BUN Creatinine Est GFR (CKD-EPI)AfAm Est GFR (CKD-EPI)NonAf Random Glucose Lactic Acid 1.1 Calcium Total Bilirubin AST ALT Alkaline Phosphatase Creatine Kinase Troponin I Total Protein Albumin Urine Color Urine Appearance Urine pH Ur Specific [place] Urine Protein Urine Glucose (UA) Urine Ketones Urine Blood Urine Nitrite Urine Bilirubin Urine Urobilinogen Ur Leukocyte Esterase Urine WBC (Auto) Urine RBC (Auto) Urine Casts (Auto) U Epithel Cells (Auto) U Sm Round Cell (Auto) Urine Bacteria (Auto) Blood Type B POSITIVE Antibody Screen Negative 03/19/19 03/19/19 11:00 13:00 WBC RBC Hgb Hct MCV MCH MCHC RDW Plt Count MPV Absolute Neuts (auto) Neutrophils % Lymphocytes % Monocytes % Eosinophils % Basophils % Nucleated RBC % PT with INR INR PTT (Actin FS) VBG pH 7.29 L POC VBG pCO2 69.4 H POC VBG pO2 26.0 L VBG HCO3 32.4 H VBG O2 Sat (Angie) 36.2 L VBG Base Excess 4.9 H Sodium Potassium Chloride Carbon Dioxide Anion Gap BUN Creatinine Est GFR (CKD-EPI)AfAm Est GFR (CKD-EPI)NonAf Random Glucose Lactic Acid Calcium Total Bilirubin AST ALT Alkaline Phosphatase Creatine Kinase Troponin I Total Protein Albumin Urine Color Dk yellow Urine Appearance Cloudy Urine pH 5.5 Ur Specific [place] 1.028 Urine Protein 2+ H Urine Glucose (UA) Negative Urine Ketones Trace H Urine Blood Negative Urine Nitrite Negative Urine Bilirubin Negative Urine Urobilinogen 1.0 Ur Leukocyte Esterase Negative Urine WBC (Auto) 5 Urine RBC (Auto) 1 Urine Casts (Auto) 10 U Epithel Cells (Auto) 10.0 U Sm Round Cell (Auto) None seen Urine Bacteria (Auto) 117.2 Blood Type Antibody Screen Active Medications Generic Name Dose Route Start Last Admin Trade Name Freq PRN Reason Stop Dose Admin Abacavir/Dolutegravir/Lamivudine 1 each 08/06/19 16:45 03/19/19 17:36 Triumeq (Non-Formulary) PO 1 each DAILY LOI Administration Acetaminophen 650 mg 03/19/19 22:57 03/19/19 23:05 Tylenol - PO 650 mg Q6H PRN Administration PAIN Heparin Sodium (Porcine) 5,000 unit 03/19/19 14:00 03/20/19 06:07 Heparin - SQ 5,000 unit TID LOI Administration Azithromycin 250 mg/ Dextrose 250 mls @ 250 mls/hr 03/20/19 10:00 IVPB DAILY LOI Ceftriaxone Sodium 2 gm/ 100 mls @ 200 mls/hr 03/20/19 10:00 Dextrose IVPB DAILY LOI Protocol ASSESSMENT/PLAN: 59 year old female with history of HIV (HAART), IVDU (Methadone), Laryngeal Ca ( s/p Laryngectomy, Tracheostomy), COPD, CRF, HTN, HLD, Depression, presents with history of fevers & chills since Monday night, associated with dry cough and SOB requiring increased oxygen. Med Hx: HIV, last CD4 count 454 in 01/2019 on HAART therapy Surgical Hx: tracheostomy 11 years ago Smoking:former smoker quit 15 years ago Alcohol:denies Drugs: None Family History:mother DM Allergies: Latex, Levofloxacin, Penicillins ER course: 1. T 98.5, WBC 10.1, Lactic Acid 1.1 2. CXR: new bibasilar infiltrates with/ fluid and some congestion 3. Ceftriaxone 2gm, Azithro 250mg #Acute on Chronic Respiratory failure secondary to Bilateral Pneumonia -I D: cont Ceftriaxone/Azithromycin - Sputum cx pending - Gram stain: Rare polymorphonuclear WBCs, few gram positive bacilli - Urine Legionella antigen negative - Urine cx: normal apolinar - Blood cx: no growth 24h #COPD -Duonebs, Solumedrol 60mg IVPUSH # HTN -Continue Metoprolol 25mg, Norvasc 5mg # HIV on HAART -On Triumeq, ID following. # Chronic Diastolic CHF - CXR: B/L congestion # Depression/Anxiety -Continue Zoloft, Seroquel, Remeron # HLD -Continue Pravastatin 10mg # Hypothyroidism - continue Levothyroxine. # Hx IVDU - continue Methadone #DVT PE -Heparin SQ. Visit type - Emergency Visit Emergency Visit: Yes ED Registration Date: 03/19/19 Care time: The patient presented to the Emergency Department on the above date and was hospitalized for further evaluation of their emergent condition. - New Patient This patient is new to me today: Yes Date on this admission: 03/22/19 - Critical Care Critical Care patient: No - Discharge Referral Referred to [facility] Med P.C.: No ATTENDING PHYSICIAN STATEMENT I saw and evaluated the patient. I reviewed the resident's note and discussed the case with the resident. I agree with the resident's findings and plan as documented. SUBJECTIVE: OBJECTIVE: ASSESSMENT AND PLAN:
--- NOTE | 2019-03-20 08:24 | PN ---
Teaching Attending Note Name of Resident: Eriberto Davenport ATTENDING PHYSICIAN STATEMENT I saw and evaluated the patient. I reviewed the resident's note and discussed the case with the resident. I agree with the resident's findings and plan as documented. 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: AOX3 non focal CBC, BMP 03/20/19 06:10 03/20/19 06:10 U legionella and Strpt are -ve : Active Medications Abacavir/Dolutegravir/Lamivudine (Triumeq (Non-Formulary)) 1 each PO DAILY LOI Last Admin: 03/19/19 17:36 Dose: 1 each Acetaminophen (Tylenol -) 650 mg PO Q6H PRN PRN Reason: PAIN Last Admin: 03/19/19 23:05 Dose: 650 mg Heparin Sodium (Porcine) (Heparin -) 5,000 unit SQ TID LOI Last Admin: 03/20/19 06:07 Dose: 5,000 unit Azithromycin 250 mg/ Dextrose 250 mls @ 250 mls/hr IVPB DAILY LOI Ceftriaxone Sodium 2 gm/ (Dextrose) 100 mls @ 200 mls/hr IVPB DAILY LOI; Protocol ASSESSMENT AND PLAN:59 year old female with history of HIV on HAART, 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 Problem List - Problems (1) Acute on chronic respiratory failure with hypoxia and hypercapnia Assessment/Plan: Due to RTI most likely viral so far cultures are -ve U Leginella and Strpt are - ve cont F/U soputum culture, consider Procalcitonin , will discuss abx regimen with ID Code(s): J96.21 - ACUTE AND CHRONIC RESPIRATORY FAILURE WITH HYPOXIA; J96.22 - ACUTE AND CHRONIC RESPIRATORY FAILURE WITH HYPERCAPNIA (2) CAP (community acquired pneumonia) Assessment/Plan: most likely viral viral serology is pending f/u sputum culture Code(s): J18.9 - PNEUMONIA, UNSPECIFIED ORGANISM (3) HIV (human immunodeficiency virus infection) Assessment/Plan: on ARV CD4 452 Code(s): Z21 - ASYMPTOMATIC HUMAN IMMUNODEFICIENCY VIRUS INFECTION STATUS (4) COPD (chronic obstructive pulmonary disease) Assessment/Plan: Ciont IV steroids and Nebs Code(s): J44.9 - CHRONIC OBSTRUCTIVE PULMONARY DISEASE, UNSPECIFIED Qualifiers: COPD type: unspecified COPD Qualified Code(s): J44.9 - Chronic obstructive pulmonary disease, unspecified (5) Carcinoma larynx Assessment/Plan: S/P resection Code(s): C32.9 - MALIGNANT NEOPLASM OF LARYNX, UNSPECIFIED (6) Anemia Assessment/Plan: Will F/U anemia w/u Code(s): D64.9 - ANEMIA, UNSPECIFIED (7) Tracheostomy dependence Code(s): Z93.0 - TRACHEOSTOMY STATUS
--- NOTE | 2019-03-20 08:35 | CON.PULM ---
Consult Consult Specialty:: PULM/CCM Referred by:: MIN Reason for Consultation:: SOB - History of Present Illness Chief Complaint: SOB History of Present Illness: 59 F, HIV (last CD4 was 454 in 01/2019, on HAART therapy, laryngeal CA ( s/p laryngectomy and tracheostomy 11 years ago), CHF, COPD, HTN, and HLD. Admitted via the ER due to progressive shortness of breath and fever/chills for the past few days. No travel history or sick contacts. She does report thick, dark sputum admixed with blood. CXR: Bibasilar infiltrates - History Source History Provided By: Patient Limitations to Obtaining History: No Limitations - Past Medical History Cardio/Vascular: Yes: HTN Pulmonary: Yes: Asthma, Bronchitis, COPD, O2 Dependent, Pneumonia, Previously Intubated, Other (trach/h/o laryngeal ca). No: Pulmonary Embolus, Pulmonary Fibrosis, Sleep Apnea Infectious Disease: Yes: HIV Psych: Yes: Addictions (now on methadone) - Alcohol/Substance Use Hx Alcohol Use: No - Smoking History Smoking history: Former smoker Have you smoked in the past 12 months: No Aproximately how many cigarettes per day: 0 If you are a former smoker, when did you quit?: 10 YEARS - Social History History of Recent Travel: No Home Medications - Allergies Allergies/Adverse Reactions: Allergies Allergy/AdvReac Type Severity Reaction Status Date / Time latex Allergy Verified 03/19/19 10:15 levofloxacin [From Levaquin] Allergy Verified 03/19/19 10:15 Penicillins Allergy Verified 03/19/19 10:15 - Home Medications Home Medications: Ambulatory Orders Methadone [Dolophine -] 78 mg PO DAILY 01/09/18 Fluticasone Prop 0.05% Nasal [Flonase -] 1 spray NS BID #1 spray.pump 11/22/18 Mirtazapine [Remeron -] 30 mg PO DAILY #30 tablet 01/16/19 Quetiapine Fumarate [Seroquel -] 25 mg PO HS #30 tablet 01/16/19 Sertraline HCl [Zoloft -] 50 mg PO HS #30 tablet 01/16/19 traZODone HCL [Trazodone HCl] 100 mg PO HS #30 tablet MDD 1 01/16/19 Abacavir/Dolutegravir/Lamivudi [Triumeq 600-50-300 mg Tablet] 1 each PO DAILY # 30 tablet 02/12/19 Albuterol 2.5/Ipratropium 0.5 [Duoneb -] 1 amp NEB Q6H PRN #30 amp 02/12/19 Amlodipine Besylate [Norvasc -] 5 mg PO DAILY #30 tablet 02/12/19 Folic Acid - 1 mg PO DAILY #30 tablet 02/12/19 Furosemide [Lasix -] 20 mg PO DAILY #30 tablet 02/12/19 Levothyroxine [Synthroid -] 112 mcg PO DAILY #30 tablet 02/12/19 Loratadine 10 mg PO DAILY PRN #30 tablet 02/12/19 Metoprolol Succinate [Toprol Xl] 25 mg PO DAILY #30 tab.er.24h 02/12/19 Montelukast Na [Singulair -] 10 mg PO HS #30 tablet 02/12/19 Multivitamin,Ther and Minerals [Vitamin and Minerals] 1 each PO DAILY #30 tablet 02/12/19 Pravastatin Sodium 10 mg PO HS #30 tablet 02/12/19 Family Disease History - Family Disease History Family Disease History: Diabetes: Brother, CA: Sister (breast ca x 2 (sisters have different fathers)), Respiratory: Daughter (asthma - d.), Other: Grandparent (MGM - hysterectomy, unknown cause), Mother (Alzheimers; hysterectomy secondary to menorrhagia), Sister Review of Systems - Review of Systems Constitutional: reports: Chills, Fever, Malaise Eyes: reports: No Symptoms HENT: reports: No Symptoms Neck: reports: No Symptoms Cardiovascular: reports: Shortness of Breath. denies: Chest Pain, Edema, Palpitations Respiratory: reports: Cough, Hemoptysis, SOB, SOB on Exertion, Wheezing. denies : Snoring Gastrointestinal: reports: No Symptoms Genitourinary: reports: No Symptoms Breasts: reports: No Symptoms Reported Musculoskeletal: reports: No Symptoms Integumentary: reports: No Symptoms Neurological: reports: No Symptoms Endocrine: reports: No Symptoms Hematology/Lymphatic: reports: No Symptoms Psychiatric: reports: No Symptoms Physical Exam Vital Sings: Vital Signs Temperature 98.5 F 03/20/19 06:23 Pulse Rate 91 H 03/20/19 06:23 Respiratory Rate 20 03/20/19 06:23 Blood Pressure 119/69 03/20/19 06:23 O2 Sat by Pulse Oximetry (%) 97 03/19/19 22:00 Constitutional: Yes: Mild Distress, Obese Eyes: Yes: Conjunctiva Clear, EOM Intact HENT: Yes: Atraumatic, Normocephalic Neck: Yes: Supple, Trachea Midline, Other (Tracheotomy ) Cardiovascular: Yes: Regular Rate and Rhythm Respiratory: Yes: Cough, Diminished, Rhonchi, SOB, SOB on Exertion, Tachypnea, Wheezes, Other (Tracheotomy ). No: Accessory Muscle Use, Rales, Stridor ...Inspection: Yes: WNL ...Clubbing: No Gastrointestinal: Yes: Normal Bowel Sounds, Soft, Abdomen, Obese Renal/: Yes: WNL Musculoskeletal: Yes: WNL Extremities: Yes: External Rotation Edema: No Peripheral Pulses WNL: Yes Integumentary: Yes: WNL Neurological: Yes: WNL, Alert, Oriented ...Motor Strength: WNL Psychiatric: Yes: WNL, Alert, Oriented Labs: CBC, BMP 03/20/19 06:10 Imaging - Results Chest X-ray: Report Reviewed, Image Reviewed Problem List - Problems (1) Anemia Code(s): D64.9 - ANEMIA, UNSPECIFIED (2) CAP (community acquired pneumonia) Code(s): J18.9 - PNEUMONIA, UNSPECIFIED ORGANISM (3) Carcinoma larynx Code(s): C32.9 - MALIGNANT NEOPLASM OF LARYNX, UNSPECIFIED (4) Hypoxia Code(s): R09.02 - HYPOXEMIA (5) Pneumonia Code(s): J18.9 - PNEUMONIA, UNSPECIFIED ORGANISM Qualifiers: Pneumonia type: due to unspecified organism Laterality: right Lung location: unspecified part of lung Qualified Code(s): J18.9 - Pneumonia, unspecified organism (6) Tracheostomy dependence Code(s): Z93.0 - TRACHEOSTOMY STATUS (7) HIV (human immunodeficiency virus infection) Code(s): Z21 - ASYMPTOMATIC HUMAN IMMUNODEFICIENCY VIRUS INFECTION STATUS (8) Abnormal chest sounds Code(s): R09.89 - OTH SYMPTOMS AND SIGNS INVOLVING THE CIRC AND RESP SYSTEMS (9) H/O cataract Code(s): Z86.69 - PERSONAL HISTORY OF DIS OF THE NERVOUS SYS AND SENSE ORGANS (10) COPD (chronic obstructive pulmonary disease) Code(s): J44.9 - CHRONIC OBSTRUCTIVE PULMONARY DISEASE, UNSPECIFIED Qualifiers: COPD type: unspecified COPD Qualified Code(s): J44.9 - Chronic obstructive pulmonary disease, unspecified (11) Cardiomegaly Code(s): I51.7 - CARDIOMEGALY (12) Dyslipidemia Code(s): E78.5 - HYPERLIPIDEMIA, UNSPECIFIED (13) Hypertension Code(s): I10 - ESSENTIAL (PRIMARY) HYPERTENSION Qualifiers: Hypertension type: essential hypertension Qualified Code(s): I10 - Essential (primary) hypertension (14) Hypothyroidism Code(s): E03.9 - HYPOTHYROIDISM, UNSPECIFIED Qualifiers: Hypothyroidism type: unspecified Qualified Code(s): E03.9 - Hypothyroidism , unspecified (15) Tracheostomy in place Code(s): Z98.89 - OTHER SPECIFIED POSTPROCEDURAL STATES * DO NOT USE * (16) COPD exacerbation Code(s): J44.1 - CHRONIC OBSTRUCTIVE PULMONARY DISEASE W (ACUTE) EXACERBATION (17) Pleural effusion Code(s): J90 - PLEURAL EFFUSION, NOT ELSEWHERE CLASSIFIED Assessment/Plan ABX per ID Daily Nedrol BD TX Humidify O2 Check urinary antigen Check sputum culture Will follow Thank you. Dr Evans
[2019-03-20 08:37] LABS: ALBUMIN 2.6 g/dl (3.4-5.0); BILIRUBIN,TOTAL 1.4 mg/dL (0.2-1); CALCIUM 8.4 mg/dL (8.5-10.1); MAGNESIUM 2.2 mg/dL (1.8-2.4); POTASSIUM 4.2 mmol/L (3.5-5.1); TOT PROT 6.4 g/dl (6.4-8.2)
[2019-03-20] MEDS ORDERED: ALBUTEROL SO4 0.083% IH SOL 2.5 MG/3 ML VIAL.NEB. NEB PRN (08:40)
[2019-03-20] MEDS ORDERED: CEFTRIAXONE 1 GM in DEXTROSE 5%-WATER 100 ML IVPB SCH (10:00)
[2019-03-20] MEDS ORDERED: DEXTROSE 5%-WATER 100 ML IVPB ONE (10:07)
[2019-03-20] MEDS ORDERED: PT OWN MED DRAWER 7, Y5N ONE ×3 (10:07→21:15)
[2019-03-20] MEDS: ABACAVIR/DOLUTEGRAVIR/LAMIVUDI (TRIUMEQ) TABLET -NF PO SCH (10:14)
[2019-03-20] MEDS: CEFTRIAXONE 2 GM in DEXTROSE 5%-WATER 100 ML IVPB SCH (10:15)
[2019-03-20] MEDS: methylPREDNISolone NA SUCC 40 MG/1 ML VIAL IVPUSH SCH (10:20)
[2019-03-20] MEDS: AZITHROMYCIN IVPB 250 MG in DEXTROSE 5%-WATER - 250 ML IVPB SCH (11:08)
[2019-03-20] MEDS ORDERED: METHADONE HCL 10 MG TABLET PO SCH ×2 (12:45→13:19)
[2019-03-20] MEDS ORDERED: METHADONE HCL 10 MG TABLET ONE ×2 (13:40→13:46)
[2019-03-20] MEDS ORDERED: METHADONE HCL 5 MG TABLET ONE ×2 (13:40→13:46)
[2019-03-20] MEDS ORDERED: METHADONE HCL 40 MG DISPERSABLE TABLET ONE (13:47)
[2019-03-20] MEDS: METHADONE PO SCH (13:48)
[2019-03-20] MEDS: ALBUTEROL SO4 2.5/IPRATROPIUM 0.5 INH SOL 3 ML VIAL.NEB. NEB SCH ×2 (14:31→20:35)
[2019-03-20] MEDS ORDERED: LORATADINE 10 MG TABLET PO PRN (16:44)
--- NOTE | 2019-03-20 17:21 | PN ---
Progress Note, SENSOR OPERATOR - Note Progress Note: Selected Entries 03/19/19 03/19/19 03/19/19 10:15 16:16 18:30 Breakfast Lunch Supper 75% Temperature 100.1 F H 98.3 F 03/20/19 03/20/19 03/20/19 06:23 09:30 16:37 Breakfast 100% Lunch 100% Supper Temperature 98.5 F 99.7 F H 98.9 F Laboratory Tests 03/19/19 03/20/19 11:00 06:10 WBC 10.1 H 7.2 Tolerating diet. Pt denies stasis/reverse flow or nasopharyngeal regurgitation today.
--- NOTE | 2019-03-20 17:39 | PN ---
Progress Note (short form) - Note Progress Note: feels improved Vital Signs Period Temp Pulse Resp BP Sys/Brandt Pulse Ox Last 24 Hr 98.5 F-99.7 F 87-98 20-22 117-119/65-79 97-97 cor-rrr lungs bibasilar crackles right greater then left abd soft,nt ext no edema CBC, BMP 03/20/19 06:10 03/20/19 06:10 Microbiology 03/20/19 13:35 Sputum - Expectorated Gram Stain - Final 03/19/19 17:45 Urine For Antigen Detection Legionella Antigen - Final 03/19/19 17:45 Urine For Antigen Detection Streptococcus pneumoniae Antigen (M - Final 03/19/19 11:05 Blood - Peripheral Venous Blood Culture - Preliminary NO GROWTH OBTAINED AFTER 24 HOURS, INCUBATION TO CONTINUE FOR 4 DAYS. 03/19/19 11:00 Blood - Peripheral Venous Blood Culture - Preliminary NO GROWTH OBTAINED AFTER 24 HOURS, INCUBATION TO CONTINUE FOR 4 DAYS. 03/19/19 13:00 Urine - Urine Clean Catch Urine Culture - Final Normal Urogenital Chayo a/p would continue treatment of pneumonia -CAP- with rocephin and zithromax f/u cultures f/u urinary antigens hiv- continue triumeq new anemia- macrocytic, recent tsh normal- per primary service histroy of cancer of the larynx with chronic trach Problem List - Problems (1) CAP (community acquired pneumonia) Code(s): J18.9 - PNEUMONIA, UNSPECIFIED ORGANISM (2) HIV (human immunodeficiency virus infection) Code(s): Z21 - ASYMPTOMATIC HUMAN IMMUNODEFICIENCY VIRUS INFECTION STATUS (3) Anemia Code(s): D64.9 - ANEMIA, UNSPECIFIED (4) Carcinoma larynx Code(s): C32.9 - MALIGNANT NEOPLASM OF LARYNX, UNSPECIFIED
--- NOTE | 2019-03-20 18:47 | CONS ---
DATE OF CONSULTATION: 03/20/2019 CONSULTATION REQUESTED BY: Hospitalist Service HISTORY OF PRESENT ILLNESS: The patient is a 59-year-old diabetic woman admitted from home. She has a past medical history of stable HIV, a CD4 of 454, a history of laryngeal cancer with laryngectomy and tracheostomy. She has COPD and CHF and is on home oxygen. She has no recent history of substance use. She had recent travel to [place] and [place]. She returned on March 14, 2019. She developed chills on March 17, with shortness of breath and cough. Today, she was hypoxic and came to the emergency room. She notes constipation. She has had no nausea, vomiting or diarrhea. A chest x-ray done in the emergency room revealed bibasilar pneumonia. She was treated with Rocephin and Zithromax in the ER and is now on the floor, stating that she feels improved. She is resting comfortably. She has had no recent admissions. She has not taken any antibiotics recently. ALLERGIES: REMOTE HISTORY OF ALLERGY TO PENICILLIN A BABY (she was told this by her mother). She tolerated ceftriaxone in the ER. HISTORY OF LEVAQUIN ALLERGY MANIFESTED BY RASH. ALLERGY TO LATEX AND LEVOFLOXACIN. PAST MEDICAL HISTORY: Notable for stable HIV, laryngeal cancer 11 years ago. She has a history of chronic obstructive pulmonary disease, hypertension, hyperlipidemia, diabetes, congestive heart failure, depression, anxiety and past history of pneumonia. PAST SURGICAL HISTORY: Notable for laryngectomy and tracheostomy. She is at the [facility]. SOCIAL HISTORY: Former smoker, having quit 15 years ago. No history of substance use. She lives with her daughter. REVIEW OF SYSTEMS: Notable for her recent cough, chills and constipation. PHYSICAL EXAMINATION: General: She is in no distress. She is awake and alert. Vital Signs: Her T-max was 100.1 in the ER. Temperature is 98.3, pulse 92, blood pressure 106/63, respiratory rate 20, weight 88 kg. HEENT: Normocephalic. Her eyes are anicteric. She has a tracheostomy. Neck: Supple. Lungs: There are crackles at the bases, right greater than left . Heart: Regular rate and rhythm. Abdomen: Firm, nontender. There is a site where a former G-tube was removed. Extremities: Without edema. LABORATORY DATA: Notable for a white count of 10.1, hemoglobin 9.6, platelets are 230. Her BUN and creatinine are 13 and 1.3 with normal LFTs. Urinalysis is notable for 5 white cells. Urine and blood cultures were sent. Chest x-ray findings are notable for bibasilar pneumonia. SUMMARY: 1. This is a 59-year-old woman with stable HIV and a tracheostomy secondary to laryngeal cancer. I would continue to treat her for community-acquired pneumonia with Rocephin and Zithromax. She has had no recent admissions or antibiotics to suggest drug resistance. I would follow up her cultures and urinary antigens. 2. HIV. Would continue . 3. New anemia; appears macrocytic. Recent normal TSH. Would work up per the primary service. 4. Further recommendations to follow. YORDY SHARMA M.D. JANET/[id number]
[2019-03-20] MEDS: MONTELUKAST NA 10 MG TABLET PO SCH (21:20)
[2019-03-20] MEDS: ATORVASTATIN CA 10 MG TABLET (FP) PO SCH (21:20)
[2019-03-20] MEDS: QUEtiapine FUMARATE 25 MG TABLET (FP) PO SCH (21:21)
[2019-03-20] MEDS ORDERED: MONTELUKAST NA 10 MG TABLET PO SCH (22:00)
[2019-03-20] MEDS ORDERED: traZODone HCL 50 MG TABLET (FP) PO SCH (22:00)
[2019-03-20] MEDS ORDERED: diphenhydrAMINE HCL 25 MG CAPSULE (FP) PO ONE (22:38)
[2019-03-21] MEDS: FLUTICASONE PROP 0.05% 16 GM NASAL SPRAY NS SCH ×4 (00:20→21:38)
[2019-03-21] MEDS ORDERED: METHADONE HCL 10 MG TABLET ONE (06:11)
[2019-03-21] MEDS ORDERED: METHADONE HCL 5 MG TABLET ONE (06:12)
[2019-03-21] MEDS ORDERED: METHADONE HCL 40 MG DISPERSABLE TABLET ONE (06:12)
[2019-03-21] MEDS: LEVOTHYROXINE NA 112 MCG TABLET (FP) PO SCH (06:19)
[2019-03-21] MEDS: METHADONE PO SCH (06:21)
[2019-03-21] MEDS: HEPARIN NA (PORCINE) 5,000 UNITS/ML 1ML VIAL SQ SCH ×3 (06:24→21:37)
[2019-03-21] MEDS: ALBUTEROL SO4 2.5/IPRATROPIUM 0.5 INH SOL 3 ML VIAL.NEB. NEB SCH ×3 (07:46→20:19)
--- NOTE | 2019-03-21 08:10 | PN ---
Progress Note (short form) - Note Progress Note: Breathing feels a little better. NAD on 40% Trach collar. Less congested cough. No hemoptysis. Afebrile. Intake & Output 03/18/19 03/19/19 03/20/19 03/21/19 23:59 23:59 23:59 23:59 Intake Total 350 Output Total 300 Balance 350 -300 Weight 194 lb 5 oz Last Vital Signs Temp Pulse Resp BP Pulse Ox 97.5 F L 75 20 110/69 99 03/21/19 06:00 03/21/19 06:00 03/21/19 06:00 03/21/19 06:00 03/20/19 21:00 Active Medications Abacavir/Dolutegravir/Lamivudine (Triumeq (Non-Formulary)) 1 each PO DAILY LOI Last Admin: 03/20/19 10:14 Dose: 1 each Acetaminophen (Tylenol -) 650 mg PO Q6H PRN PRN Reason: PAIN Last Admin: 03/19/19 23:05 Dose: 650 mg Albuterol Sulfate (Ventolin 0.083% Nebulizer Soln -) 1 amp NEB Q4H PRN PRN Reason: SHORT OF BREATH/WHEEZING Albuterol/Ipratropium (Duoneb -) 1 amp NEB RTID LOI Last Admin: 03/21/19 07:46 Dose: 1 amp Amlodipine Besylate (Norvasc -) 5 mg PO DAILY [facility] Atorvastatin Calcium (Lipitor -) 10 mg PO HS LOI Last Admin: 03/20/19 21:20 Dose: 10 mg Fluticasone Propionate (Flonase -) 1 spray NS BID LOI Last Admin: 03/21/19 00:20 Dose: Not Given Folic Acid (Folic Acid -) 1 mg PO DAILY LOI Furosemide (Lasix -) 20 mg PO DAILY [facility] Heparin Sodium (Porcine) (Heparin -) 5,000 unit SQ TID LOI Last Admin: 03/21/19 06:24 Dose: 5,000 unit Azithromycin 250 mg/ Dextrose 250 mls @ 250 mls/hr IVPB DAILY LOI Last Admin: 03/20/19 11:08 Dose: 250 mls/hr Ceftriaxone Sodium 2 gm/ (Dextrose) 100 mls @ 200 mls/hr IVPB DAILY LOI; Protocol Last Admin: 03/20/19 10:15 Dose: 200 mls/hr Levothyroxine Sodium (Synthroid -) 112 mcg PO DAILY@0700 [facility] Last Admin: 03/21/19 06:19 Dose: 112 mcg Loratadine (Claritin -) 10 mg PO DAILY PRN PRN Reason: allergies Methadone HCl 40 mg/ Methadone HCl 30 mg/ Methadone HCl 7.5 mg 77.5 mg PO 0600 [facility] Last Admin: 03/21/19 06:21 Dose: 77.5 mg Methylprednisolone Sodium Succinate (Solu-Medrol -) 60 mg IVPUSH DAILY [facility] Last Admin: 03/20/19 10:20 Dose: 60 mg Metoprolol Succinate (Toprol Xl -) 25 mg PO DAILY [facility] Mirtazapine (Remeron -) 30 mg PO HS [facility] Montelukast Sodium (Singulair -) 10 mg PO HS [facility] Last Admin: 03/20/19 21:20 Dose: 10 mg Multivitamins/Minerals (Theragran-M) 1 each PO DAILY [facility] Quetiapine Fumarate (Seroquel -) 25 mg PO [facility] Last Admin: 03/20/19 21:21 Dose: 25 mg Sertraline HCl (Zoloft -) 50 mg PO DAILY [facility] Trazodone HCl (Desyrel -) 100 mg PO [facility] Constitutional: Yes: Awake and alert, NAD, Obese Eyes: Yes: Conjunctiva Clear, EOM Intact HENT: Yes: Atraumatic, Normocephalic Neck: Yes: Supple, Trachea Midline, Other (Tracheotomy ) Cardiovascular: Yes: Regular Rate and Rhythm Respiratory: Yes: Cough, Diminished, Rhonchi, Wheezes, Other (Tracheotomy ). No : Accessory Muscle Use, Rales, Stridor ...Inspection: Yes: WNL ...Clubbing: No Gastrointestinal: Yes: Normal Bowel Sounds, Soft, Abdomen, Obese Renal/: Yes: WNL Musculoskeletal: Yes: WNL Extremities: Yes: External Rotation Edema: No Peripheral Pulses WNL: Yes Integumentary: Yes: WNL Neurological: Yes: WNL, Alert, Oriented ...Motor Strength: WNL Psychiatric: Yes: WNL, Alert, Oriented Labs: Laboratory Results - last 24 hr 03/20/19 03/20/19 06:10 06:10 WBC 7.2 RBC 2.78 L Hgb 8.8 L Hct 27.7 L MCV 99.6 H MCH 31.7 MCHC 31.8 L RDW 14.4 Plt Count 216 MPV 8.0 Absolute Neuts (auto) 5.4 Neutrophils % 74.9 Lymphocytes % 11.6 D Monocytes % 12.8 H Eosinophils % 0.5 D Basophils % 0.2 Nucleated RBC % 0 Sodium 142 Potassium 4.2 Chloride 103 Carbon Dioxide 33 H Anion Gap 6 L BUN 11.0 Creatinine 1.0 Est GFR (CKD-EPI)AfAm 71.92 Est GFR (CKD-EPI)NonAf 62.05 Random Glucose 77 Calcium 8.4 L Magnesium 2.2 Total Bilirubin 1.4 H AST 15 ALT 9 L Alkaline Phosphatase 93 Total Protein 6.4 Albumin 2.6 L Problem List - Problems (1) Anemia Code(s): D64.9 - ANEMIA, UNSPECIFIED (2) CAP (community acquired pneumonia) Code(s): J18.9 - PNEUMONIA, UNSPECIFIED ORGANISM (3) Carcinoma larynx Code(s): C32.9 - MALIGNANT NEOPLASM OF LARYNX, UNSPECIFIED (4) Hypoxia Code(s): R09.02 - HYPOXEMIA (5) Pneumonia Code(s): J18.9 - PNEUMONIA, UNSPECIFIED ORGANISM Qualifiers: Pneumonia type: due to unspecified organism Laterality: right Lung location: unspecified part of lung Qualified Code(s): J18.9 - Pneumonia, unspecified organism (6) Tracheostomy dependence Code(s): Z93.0 - TRACHEOSTOMY STATUS (7) HIV (human immunodeficiency virus infection) Code(s): Z21 - ASYMPTOMATIC HUMAN IMMUNODEFICIENCY VIRUS INFECTION STATUS (8) Abnormal chest sounds Code(s): R09.89 - OTH SYMPTOMS AND SIGNS INVOLVING THE CIRC AND RESP SYSTEMS (9) H/O cataract Code(s): Z86.69 - PERSONAL HISTORY OF DIS OF THE NERVOUS SYS AND SENSE ORGANS (10) COPD (chronic obstructive pulmonary disease) Code(s): J44.9 - CHRONIC OBSTRUCTIVE PULMONARY DISEASE, UNSPECIFIED Qualifiers: COPD type: unspecified COPD Qualified Code(s): J44.9 - Chronic obstructive pulmonary disease, unspecified (11) Cardiomegaly Code(s): I51.7 - CARDIOMEGALY (12) Dyslipidemia Code(s): E78.5 - HYPERLIPIDEMIA, UNSPECIFIED (13) Hypertension Code(s): I10 - ESSENTIAL (PRIMARY) HYPERTENSION Qualifiers: Hypertension type: essential hypertension Qualified Code(s): I10 - Essential (primary) hypertension (14) Hypothyroidism Code(s): E03.9 - HYPOTHYROIDISM, UNSPECIFIED Qualifiers: Hypothyroidism type: unspecified Qualified Code(s): E03.9 - Hypothyroidism , unspecified (15) Tracheostomy in place Code(s): Z98.89 - OTHER SPECIFIED POSTPROCEDURAL STATES * DO NOT USE * (16) COPD exacerbation Code(s): J44.1 - CHRONIC OBSTRUCTIVE PULMONARY DISEASE W (ACUTE) EXACERBATION (17) Pleural effusion Code(s): J90 - PLEURAL EFFUSION, NOT ELSEWHERE CLASSIFIED Assessment/Plan ABX per ID Daily Nedrol BD TX Humidify O2 Urinary antigens are negative Follow sputum culture Dr Evans Problem List - Problems (1) Anemia Code(s): D64.9 - ANEMIA, UNSPECIFIED (2) CAP (community acquired pneumonia) Code(s): J18.9 - PNEUMONIA, UNSPECIFIED ORGANISM (3) Carcinoma larynx Code(s): C32.9 - MALIGNANT NEOPLASM OF LARYNX, UNSPECIFIED (4) Hypoxia Code(s): R09.02 - HYPOXEMIA (5) Pneumonia Code(s): J18.9 - PNEUMONIA, UNSPECIFIED ORGANISM Qualifiers: Pneumonia type: due to unspecified organism Laterality: right Lung location: unspecified part of lung Qualified Code(s): J18.9 - Pneumonia, unspecified organism (6) Tracheostomy dependence Code(s): Z93.0 - TRACHEOSTOMY STATUS (7) HIV (human immunodeficiency virus infection) Code(s): Z21 - ASYMPTOMATIC HUMAN IMMUNODEFICIENCY VIRUS INFECTION STATUS (8) Abnormal chest sounds Code(s): R09.89 - OTH SYMPTOMS AND SIGNS INVOLVING THE CIRC AND RESP SYSTEMS (9) H/O cataract Code(s): Z86.69 - PERSONAL HISTORY OF DIS OF THE NERVOUS SYS AND SENSE ORGANS (10) COPD (chronic obstructive pulmonary disease) Code(s): J44.9 - CHRONIC OBSTRUCTIVE PULMONARY DISEASE, UNSPECIFIED Qualifiers: COPD type: unspecified COPD Qualified Code(s): J44.9 - Chronic obstructive pulmonary disease, unspecified (11) Cardiomegaly Code(s): I51.7 - CARDIOMEGALY (12) Dyslipidemia Code(s): E78.5 - HYPERLIPIDEMIA, UNSPECIFIED (13) Hypertension Code(s): I10 - ESSENTIAL (PRIMARY) HYPERTENSION Qualifiers: Hypertension type: essential hypertension Qualified Code(s): I10 - Essential (primary) hypertension (14) Hypothyroidism Code(s): E03.9 - HYPOTHYROIDISM, UNSPECIFIED Qualifiers: Hypothyroidism type: unspecified Qualified Code(s): E03.9 - Hypothyroidism , unspecified (15) Tracheostomy in place Code(s): Z98.89 - OTHER SPECIFIED POSTPROCEDURAL STATES * DO NOT USE * (16) COPD exacerbation Code(s): J44.1 - CHRONIC OBSTRUCTIVE PULMONARY DISEASE W (ACUTE) EXACERBATION (17) Pleural effusion Code(s): J90 - PLEURAL EFFUSION, NOT ELSEWHERE CLASSIFIED
--- NOTE | 2019-03-21 08:14 | PN ---
Teaching Attending Note Name of Resident: Eriberto Davenport ATTENDING PHYSICIAN STATEMENT I saw and evaluated the patient. I reviewed the resident's note and discussed the case with the resident. I agree with the resident's findings and plan as documented. 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 non focal CBC, BMP 03/21/19 08:30 03/21/19 08:30 U legionella and Strpt are -ve MEDS: Abacavir/Dolutegravir/Lamivudine (Triumeq (Non-Formulary)) 1 each PO DAILY LOI Last Admin: 03/21/19 10:29 Dose: 1 each Acetaminophen (Tylenol -) 650 mg PO Q6H PRN PRN Reason: PAIN Last Admin: 03/19/19 23:05 Dose: 650 mg Albuterol Sulfate (Ventolin 0.083% Nebulizer Soln -) 1 amp NEB Q4H PRN PRN Reason: SHORT OF BREATH/WHEEZING Albuterol/Ipratropium (Duoneb -) 1 amp NEB RTID LOI Last Admin: 03/21/19 07:46 Dose: 1 amp Amlodipine Besylate (Norvasc -) 5 mg PO DAILY LOI Last Admin: 03/21/19 10:25 Dose: Not Given Atorvastatin Calcium (Lipitor -) 10 mg PO HS LOI Last Admin: 03/20/19 21:20 Dose: 10 mg Fluticasone Propionate (Flonase -) 1 spray NS BID LOI Last Admin: 03/21/19 10:33 Dose: Not Given Folic Acid (Folic Acid -) 1 mg PO DAILY LOI Last Admin: 03/21/19 10:31 Dose: 1 mg Furosemide (Lasix -) 20 mg PO DAILY LOI Last Admin: 03/21/19 10:25 Dose: Not Given Heparin Sodium (Porcine) (Heparin -) 5,000 unit SQ TID [facility] Last Admin: 03/21/19 06:24 Dose: 5,000 unit Azithromycin 250 mg/ Dextrose 250 mls @ 250 mls/hr IVPB DAILY [facility] Last Admin: 03/21/19 11:52 Dose: 250 mls/hr Ceftriaxone Sodium 2 gm/ (Dextrose) 100 mls @ 200 mls/hr IVPB DAILY [facility]; Protocol Last Admin: 03/21/19 10:26 Dose: 200 mls/hr Levothyroxine Sodium (Synthroid -) 112 mcg PO DAILY@0700 [facility] Last Admin: 03/21/19 06:19 Dose: 112 mcg Loratadine (Claritin -) 10 mg PO DAILY PRN PRN Reason: allergies Methadone HCl 40 mg/ Methadone HCl 30 mg/ Methadone HCl 7.5 mg 77.5 mg PO 0600 [facility] Last Admin: 03/21/19 06:21 Dose: 77.5 mg Methylprednisolone Sodium Succinate (Solu-Medrol -) 60 mg IVPUSH DAILY [facility] Last Admin: 03/21/19 10:27 Dose: 60 mg Metoprolol Succinate (Toprol Xl -) 25 mg PO DAILY [facility] Last Admin: 03/21/19 10:27 Dose: Not Given Mirtazapine (Remeron -) 30 mg PO [facility] Montelukast Sodium (Singulair -) 10 mg PO HS [facility] Last Admin: 03/20/19 21:20 Dose: 10 mg Multivitamins/Minerals (Theragran-M) 1 each PO DAILY [facility] Last Admin: 03/21/19 10:33 Dose: Not Given Quetiapine Fumarate (Seroquel -) 25 mg PO HS [facility] Last Admin: 03/20/19 21:21 Dose: 25 mg Sertraline HCl (Zoloft -) 50 mg PO DAILY [facility] Last Admin: 03/21/19 10:31 Dose: 50 mg Trazodone HCl (Desyrel -) 100 mg PO LOI : ASSESSMENT AND PLAN:59 year old female with history of HIV on HAART, 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 Problem List - Problems (1) Acute on chronic respiratory failure with hypoxia and hypercapnia Assessment/Plan: Due to RTI most likely viral so far cultures are -ve U Leginella and Strpt are - ve cont F/U sputum few WBC and Gram positive rods (normal apolinar), will discuss abx regimen with ID can be switched to Po Ceftin and azithromycin, incentive spirometry. Code(s): J96.21 - ACUTE AND CHRONIC RESPIRATORY FAILURE WITH HYPOXIA; J96.22 - ACUTE AND CHRONIC RESPIRATORY FAILURE WITH HYPERCAPNIA (2) CAP (community acquired pneumonia) Assessment/Plan: most likely viral viral serology is pending Code(s): J18.9 - PNEUMONIA, UNSPECIFIED ORGANISM (3) HIV (human immunodeficiency virus infection) Assessment/Plan: on ARV CD4 452 Code(s): Z21 - ASYMPTOMATIC HUMAN IMMUNODEFICIENCY VIRUS INFECTION STATUS (4) COPD (chronic obstructive pulmonary disease) Assessment/Plan: F/U with Pulmonary to optimize steroid dose rest cont same Code(s): J44.9 - CHRONIC OBSTRUCTIVE PULMONARY DISEASE, UNSPECIFIED Qualifiers: COPD type: unspecified COPD Qualified Code(s): J44.9 - Chronic obstructive pulmonary disease, unspecified (5) Carcinoma larynx Assessment/Plan: S/P resection Code(s): C32.9 - MALIGNANT NEOPLASM OF LARYNX, UNSPECIFIED (6) Anemia Assessment/Plan: Will F/U anemia w/u Code(s): D64.9 - ANEMIA, UNSPECIFIED (7) Tracheostomy dependence Assessment/Plan: On trach collar Code(s): Z93.0 - TRACHEOSTOMY STATUS
[2019-03-21 08:58] LABS: HEMATOCRIT 27.4 % (32.4-45.2); HEMOGLOBIN 8.9 GM/dL (10.7-15.3); MCH 31.7 pg (25.7-33.7); MCHC 32.3 g/dl (32.0-36.0); MEAN CELL VOLUME 98.2 fl (80-96); MEAN PLT VOLUME 7.4 fl (7.5-11.1); PLATELET COUNT 251 K/MM3 (134-434); RBC 2.79 M/mm3 (3.60-5.2); RDW 14.5 % (11.6-15.6); WHITE BLOOD COUNT 8.4 K/mm3 (4.0-10.0)
[2019-03-21 09:20] LABS: ALBUMIN 2.6 g/dl (3.4-5.0); BILIRUBIN,TOTAL 0.2 mg/dL (0.2-1); BLOOD UREA NITROGEN 9.7 mg/dL (7-18); CREATININE 0.8 mg/dL (0.55-1.3); POTASSIUM 4.1 mmol/L (3.5-5.1); TOT PROT 6.9 g/dl (6.4-8.2)
[2019-03-21] MEDS ORDERED: PT OWN MED DRAWER 7, Y5N ONE ×2 (10:21→10:57)
[2019-03-21] MEDS ORDERED: DEXTROSE 5%-WATER 100 ML IVPB ONE (10:21)
[2019-03-21] MEDS: FUROSEMIDE 20 MG TABLET (FP) PO SCH (10:25)
[2019-03-21] MEDS: amLODIPine BESYLATE 5 MG TABLET (FP) PO SCH (10:25)
[2019-03-21] MEDS: CEFTRIAXONE 2 GM in DEXTROSE 5%-WATER 100 ML IVPB SCH (10:26)
[2019-03-21] MEDS: metoPROLOL SUCCINATE 25 MG TAB.SR.24H (FP) PO SCH (10:27)
[2019-03-21] MEDS: methylPREDNISolone NA SUCC 40 MG/1 ML VIAL IVPUSH SCH (10:27)
[2019-03-21] MEDS: MULTIVITAMINS THER W-MINERALS COMBO TABLET (FP) PO SCH ×2 (10:28→10:33)
[2019-03-21] MEDS: ABACAVIR/DOLUTEGRAVIR/LAMIVUDI (TRIUMEQ) TABLET -NF PO SCH (10:29)
[2019-03-21] MEDS: FOLIC ACID 1 MG TABLET (FP) PO SCH (10:31)
[2019-03-21] MEDS: SERTRALINE HCL 50 MG TABLET (FP) PO SCH (10:31)
[2019-03-21] MEDS: AZITHROMYCIN IVPB 250 MG in DEXTROSE 5%-WATER - 250 ML IVPB SCH (11:52)
--- NOTE | 2019-03-21 13:39 | PN ---
Progress Note (short form) - Note Progress Note: improved still some cough on iv steroids day #3 antibiotics rocephin/zithromax Vital Signs Period Temp Pulse Resp BP Sys/Brandt Pulse Ox Last 24 Hr 97.5 F-98.9 F 75-98 20-22 110-126/69-79 99 trach cor-rrr lungs bilateral rhonchi abd soft,protuberant ext no edema CBC, BMP 03/21/19 08:30 03/21/19 08:30 Microbiology 03/19/19 11:05 Blood - Peripheral Venous Blood Culture - Preliminary NO GROWTH OBTAINED AFTER 48 HOURS, INCUBATION TO CONTINUE FOR 3 DAYS. 03/19/19 11:00 Blood - Peripheral Venous Blood Culture - Preliminary NO GROWTH OBTAINED AFTER 48 HOURS, INCUBATION TO CONTINUE FOR 3 DAYS. 03/20/19 13:35 Sputum - Expectorated Gram Stain - Final 03/20/19 13:35 Sputum - Expectorated Sputum Culture - Preliminary NORMAL RESPIRATORY CHAYO 03/19/19 17:45 Urine For Antigen Detection Legionella Antigen - Final 03/19/19 17:45 Urine For Antigen Detection Streptococcus pneumoniae Antigen (M - Final 03/19/19 13:00 Urine - Urine Clean Catch Urine Culture - Final Normal Urogenital Chayo a/p would continue treatment of pneumonia -CAP- with rocephin and zithromax day #3 clinically improved copd- on home oxygen, remains on iv steroids hiv- continue triumeq new anemia- macrocytic, recent tsh normal- per primary service d/w 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
[2019-03-21 16:04] VITALS: BMI 36.6
--- NOTE | 2019-03-21 17:05 | PN ---
Physical Exam: SUBJECTIVE: Patient seen and examined by the bedside, AOx3 OBJECTIVE: Vital Signs Period Temp Pulse Resp BP Sys/Brandt Pulse Ox Last 24 Hr 97.5 F-98.7 F 71-91 20-20 110-126/69-76 99 GENERAL: Awake, alert, and fully oriented, in no acute distress. EYES: PEERLA: EOMI: no scleral icterus NECK:no JVD:; no lymphadenopathy LUNGS: wheezes B/L; crackles at bases B/L HEART: Regular rate and rhythm, normal S1 and S2 without murmur, rub or gallop. ABDOMEN: Soft, non distended, nontender, MUSCULOSKELETAL: Normal range of motion at all joints. No bony deformities or tenderness. EXTREMITIES: warm; well-perfused no clubbing/cyanosis or edema NEUROLOGICAL: Cranial nerves II-XII intact. Normal speech. Normal gait. PSYCHIATRIC: Cooperative. Good eye contact. Appropriate mood and affect. SKIN: Warm, dry, normal turgor, no rashes or lesions noted, normal capillary refill. Laboratory Results - last 24 hr 03/21/19 03/21/19 08:30 08:30 WBC 8.4 RBC 2.79 L Hgb 8.9 L Hct 27.4 L MCV 98.2 H MCH 31.7 MCHC 32.3 RDW 14.5 Plt Count 251 MPV 7.4 L Sodium 143 Potassium 4.1 Chloride 105 Carbon Dioxide 35 H Anion Gap 3 L BUN 9.7 Creatinine 0.8 Est GFR (CKD-EPI)AfAm 94.19 Est GFR (CKD-EPI)NonAf 81.27 Random Glucose 102 Calcium 9.0 Total Bilirubin 0.2 AST 13 L ALT 9 L Alkaline Phosphatase 100 Total Protein 6.9 Albumin 2.6 L Active Medications Generic Name Dose Route Start Last Admin Trade Name Freq PRN Reason Stop Dose Admin Abacavir/Dolutegravir/Lamivudine 1 each 03/19/19 16:45 03/21/19 10:29 Triumeq (Non-Formulary) PO 1 each DAILY LOI Administration Acetaminophen 650 mg 03/19/19 22:57 03/19/19 23:05 Tylenol - PO 650 mg Q6H PRN Administration PAIN Albuterol Sulfate 1 amp 03/20/19 08:40 Ventolin 0.083% Nebulizer Soln - NEB Q4H PRN SHORT OF BREATH/WHEEZING Albuterol/Ipratropium 1 amp 03/20/19 14:00 03/21/19 14:50 Duoneb - NEB 1 amp RTID LOI Administration Amlodipine Besylate 5 mg 03/21/19 10:00 03/21/19 10:25 Norvasc - PO Not Given DAILY LOI Atorvastatin Calcium 10 mg 03/20/19 22:00 03/20/19 21:20 Lipitor - PO 10 mg HS LOI Administration Fluticasone Propionate 1 spray 03/20/19 22:00 03/21/19 10:33 Flonase - NS Not Given BID LOI Folic Acid 1 mg 03/21/19 10:00 03/21/19 10:31 Folic Acid - PO 1 mg DAILY LOI Administration Furosemide 20 mg 03/21/19 10:00 03/21/19 10:25 Lasix - PO Not Given DAILY LOI Heparin Sodium (Porcine) 5,000 unit 03/19/19 14:00 03/21/19 15:38 Heparin - SQ 5,000 unit TID LOI Administration Azithromycin 250 mg/ Dextrose 250 mls @ 250 mls/hr 03/20/19 10:00 03/21/19 11 :52 IVPB 250 mls/hr DAILY LOI Administration Ceftriaxone Sodium 2 gm/ 100 mls @ 200 mls/hr 03/20/19 10:00 03/21/19 10:26 Dextrose IVPB 200 mls/hr DAILY LOI Administration Protocol Levothyroxine Sodium 112 mcg 03/21/19 07:00 03/21/19 06:19 Synthroid - PO 112 mcg DAILY@0700 LOI Administration Loratadine 10 mg 03/20/19 16:44 Claritin - PO DAILY PRN allergies Methadone HCl 40 mg/ Methadone 77.5 mg 03/20/19 13:30 03/21/19 06:21 HCl 30 mg/ Methadone HCl 7.5 PO 77.5 mg mg 0600 LOI Administration Methylprednisolone Sodium Succinate 60 mg 03/20/19 10:00 03/21/19 10:27 Solu-Medrol - IVPUSH 60 mg DAILY LOI Administration Metoprolol Succinate 25 mg 03/21/19 10:00 03/21/19 10:27 Toprol Xl - PO Not Given DAILY [facility] Mirtazapine 30 mg 03/21/19 22:00 Remeron - PO HS LOI Montelukast Sodium 10 mg 03/20/19 22:00 03/20/19 21:20 Singulair - PO 10 mg HS LOI Administration Multivitamins/Minerals 1 each 03/21/19 10:00 03/21/19 10:33 Theragran-M PO Not Given DAILY LOI Quetiapine Fumarate 25 mg 03/20/19 22:00 03/20/19 21:21 Seroquel - PO 25 mg HS LOI Administration Sertraline HCl 50 mg 03/21/19 10:00 03/21/19 10:31 Zoloft - PO 50 mg DAILY LOI Administration Trazodone HCl 100 mg 03/21/19 22:00 Desyrel - PO HS LOI ASSESSMENT/PLAN: 59 year old female with history of HIV (HAART), IVDU (Methadone), Laryngeal Ca ( s/p Laryngectomy, Tracheostomy), COPD, CRF, HTN, HLD, Depression, presents with history of fevers & chills since Monday night, associated with dry cough and SOB requiring increased oxygen. Med Hx: HIV, last CD4 count 454 in 01/2019 on HAART therapy Surgical Hx: tracheostomy 11 years ago Smoking:former smoker quit 15 years ago Alcohol:denies Drugs: None Family History:mother DM Allergies: Latex, Levofloxacin, Penicillins ER course: 1. T 98.5, WBC 10.1, Lactic Acid 1.1 2. CXR: new bibasilar infiltrates with/ fluid and some congestion 3. Ceftriaxone 2gm, Azithro 250mg #Acute on Chronic Respiratory failure secondary to Bilateral Pneumonia -ID: cont Ceftriaxone/Azithromycin - Sputum cx: normal apolinar - Gram stain: Rare polymorphonuclear WBCs, few gram positive bacilli - Urine Legionella antigen negative - Urine cx: normal apolinar - Blood cx: no growth 48h #COPD -Duonebs, Solumedrol 60mg IVPUSH # HTN -Continue Metoprolol 25mg, Norvasc 5mg # HIV on HAART -On Triumeq, ID following. # Chronic Diastolic CHF - CXR: B/L congestion # Depression/Anxiety -Continue Zoloft, Seroquel, Remeron # HLD -Continue Pravastatin 10mg # Hypothyroidism - continue Levothyroxine. # Hx IVDU - continue Methadone #DVT PE -Heparin SQ. Visit type - Emergency Visit Emergency Visit: Yes ED Registration Date: 03/19/19 Care time: The patient presented to the Emergency Department on the above date and was hospitalized for further evaluation of their emergent condition. - New Patient This patient is new to me today: No - Critical Care Critical Care patient: No - Discharge Referral [facility]erred [facility] Med [facility] No ATTENDING PHYSICIAN STATEMENT I saw and evaluated the patient. I reviewed the resident's note and discussed the case with the resident. I agree with the resident's findings and plan as documented. SUBJECTIVE: OBJECTIVE: ASSESSMENT AND PLAN:
[2019-03-21] MEDS ORDERED: traZODone HCL 50 MG TABLET (FP) ONE (21:26)
[2019-03-21] MEDS: traZODone HCL 100 MG TABLET (FP) PO SCH (21:37)
[2019-03-21] MEDS: ATORVASTATIN CA 10 MG TABLET (FP) PO SCH (21:37)
[2019-03-21] MEDS: QUEtiapine FUMARATE 25 MG TABLET (FP) PO SCH (21:37)
[2019-03-21] MEDS: MIRTAZAPINE 15 MG TABLET (FP) PO SCH (21:37)
[2019-03-21] MEDS: MONTELUKAST NA 10 MG TABLET PO SCH (21:37)
[2019-03-22] MEDS ORDERED: METHADONE HCL 10 MG TABLET ONE (05:42)
[2019-03-22] MEDS ORDERED: METHADONE HCL 40 MG DISPERSABLE TABLET ONE (05:43)
[2019-03-22] MEDS ORDERED: METHADONE HCL 5 MG TABLET ONE (05:43)
[2019-03-22] MEDS: METHADONE PO SCH (05:49)
[2019-03-22] MEDS: HEPARIN NA (PORCINE) 5,000 UNITS/ML 1ML VIAL SQ SCH ×3 (05:51→21:08)
[2019-03-22] MEDS: LEVOTHYROXINE NA 112 MCG TABLET (FP) PO SCH (06:17)
[2019-03-22] MEDS: ALBUTEROL SO4 2.5/IPRATROPIUM 0.5 INH SOL 3 ML VIAL.NEB. NEB SCH ×2 (07:35→14:45)
--- NOTE | 2019-03-22 08:12 | PN ---
Teaching Attending Note Name of Resident: Eriberto Davenport ATTENDING PHYSICIAN STATEMENT I saw and evaluated the patient. I reviewed the resident's note and discussed the case with the resident. I agree with the resident's findings and plan as documented. 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 U legionella and Strept are -ve MEDS: Abacavir/Dolutegravir/Lamivudine (Triumeq (Non-Formulary)) 1 each PO DAILY [facility] Last Admin: 03/21/19 10:29 Dose: 1 each Acetaminophen (Tylenol -) 650 mg PO Q6H PRN PRN Reason: PAIN Last Admin: 03/19/19 23:05 Dose: 650 mg Albuterol Sulfate (Ventolin 0.083% Nebulizer Soln -) 1 amp NEB Q4H PRN PRN Reason: SHORT OF BREATH/WHEEZING Albuterol/Ipratropium (Duoneb -) 1 amp NEB RTID [facility] Last Admin: 03/21/19 07:46 Dose: 1 amp Amlodipine Besylate (Norvasc -) 5 mg PO DAILY [facility] Last Admin: 03/21/19 10:25 Dose: Not Given Atorvastatin Calcium (Lipitor -) 10 mg PO HS LOI Last Admin: 03/20/19 21:20 Dose: 10 mg Fluticasone Propionate (Flonase -) 1 spray NS BID [facility] Last Admin: 03/21/19 10:33 Dose: Not Given Folic Acid (Folic Acid -) 1 mg PO DAILY [facility] Last Admin: 03/21/19 10:31 Dose: 1 mg Furosemide (Lasix -) 20 mg PO DAILY [facility] Last Admin: 03/21/19 10:25 Dose: Not Given Heparin Sodium (Porcine) (Heparin -) 5,000 unit SQ TID [facility] Last Admin: 03/21/19 06:24 Dose: 5,000 unit Azithromycin 250 mg/ Dextrose 250 mls @ 250 mls/hr IVPB DAILY [facility] Last Admin: 03/21/19 11:52 Dose: 250 mls/hr Ceftriaxone Sodium 2 gm/ (Dextrose) 100 mls @ 200 mls/hr IVPB DAILY [facility]; Protocol Last Admin: 03/21/19 10:26 Dose: 200 mls/hr Levothyroxine Sodium (Synthroid -) 112 mcg PO DAILY@0700 [facility] Last Admin: 03/21/19 06:19 Dose: 112 mcg Loratadine (Claritin -) 10 mg PO DAILY PRN PRN Reason: allergies Methadone HCl 40 mg/ Methadone HCl 30 mg/ Methadone HCl 7.5 mg 77.5 mg PO 0600 [facility] Last Admin: 03/21/19 06:21 Dose: 77.5 mg Methylprednisolone Sodium Succinate (Solu-Medrol -) 60 mg IVPUSH DAILY [facility] Last Admin: 03/21/19 10:27 Dose: 60 mg Metoprolol Succinate (Toprol Xl -) 25 mg PO DAILY [facility] Last Admin: 03/21/19 10:27 Dose: Not Given Mirtazapine (Remeron -) 30 mg PO HS [facility] Montelukast Sodium (Singulair -) 10 mg PO HS [facility] Last Admin: 03/20/19 21:20 Dose: 10 mg Multivitamins/Minerals (Theragran-M) 1 each PO DAILY [facility] Last Admin: 03/21/19 10:33 Dose: Not Given Quetiapine Fumarate (Seroquel -) 25 mg PO HS [facility] Last Admin: 03/20/19 21:21 Dose: 25 mg Sertraline HCl (Zoloft -) 50 mg PO DAILY [facility] Last Admin: 03/21/19 10:31 Dose: 50 mg Trazodone HCl (Desyrel -) 100 mg PO [facility] ASSESSMENT AND PLAN:59 year old female with history of HIV on HAART, 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 Problem List - Problems (1) CAP (community acquired pneumonia) Assessment/Plan: Sputum Grew [employer] Latex + will add Doxycycline cont Ceftin for total 5 days F /U with pulmonary Code(s): J18.9 - PNEUMONIA, UNSPECIFIED ORGANISM (2) HIV (human immunodeficiency virus infection) Assessment/Plan: on ARV CD4 452 Code(s): Z21 - ASYMPTOMATIC HUMAN IMMUNODEFICIENCY VIRUS INFECTION STATUS Qualifiers: HIV symptom status: unspecified Qualified Code(s): B20 - Human immunodeficiency virus [HIV] disease (3) COPD (chronic obstructive pulmonary disease) Assessment/Plan: Sweitch to PO Prednisone taper over 5 days Code(s): J44.9 - CHRONIC OBSTRUCTIVE PULMONARY DISEASE, UNSPECIFIED Qualifiers: COPD type: unspecified COPD Qualified Code(s): J44.9 - Chronic obstructive pulmonary disease, unspecified (4) Carcinoma larynx Assessment/Plan: S/P resection Code(s): C32.9 - MALIGNANT NEOPLASM OF LARYNX, UNSPECIFIED (5) Anemia Assessment/Plan: Will F/U anemia w/u Code(s): D64.9 - ANEMIA, UNSPECIFIED (6) Tracheostomy dependence Assessment/Plan: On trach collar Code(s): Z93.0 - TRACHEOSTOMY STATUS
[2019-03-22 09:02] LABS: HEMATOCRIT 28.3 % (32.4-45.2); HEMOGLOBIN 9.2 GM/dL (10.7-15.3); MCH 32.1 pg (25.7-33.7); MCHC 32.4 g/dl (32.0-36.0); MEAN CELL VOLUME 99.3 fl (80-96); MEAN PLT VOLUME 7.3 fl (7.5-11.1); PLATELET COUNT 296 K/MM3 (134-434); RBC 2.85 M/mm3 (3.60-5.2); RDW 14.5 % (11.6-15.6); WHITE BLOOD COUNT 9.7 K/mm3 (4.0-10.0)
[2019-03-22] MEDS ORDERED: DEXTROSE 5%-WATER 100 ML IVPB ONE (10:20)
[2019-03-22] MEDS ORDERED: PT OWN MED DRAWER 7, Y5N ONE ×2 (10:20→21:06)
[2019-03-22] MEDS: FOLIC ACID 1 MG TABLET (FP) PO SCH (10:33)
[2019-03-22] MEDS: FUROSEMIDE 20 MG TABLET (FP) PO SCH (10:33)
[2019-03-22] MEDS: amLODIPine BESYLATE 5 MG TABLET (FP) PO SCH (10:33)
[2019-03-22] MEDS: MULTIVITAMINS THER W-MINERALS COMBO TABLET (FP) PO SCH (10:34)
[2019-03-22] MEDS: ABACAVIR/DOLUTEGRAVIR/LAMIVUDI (TRIUMEQ) TABLET -NF PO SCH (10:34)
[2019-03-22] MEDS: SERTRALINE HCL 50 MG TABLET (FP) PO SCH (10:34)
[2019-03-22] MEDS: metoPROLOL SUCCINATE 25 MG TAB.SR.24H (FP) PO SCH (10:34)
[2019-03-22] MEDS: CEFTRIAXONE 2 GM in DEXTROSE 5%-WATER 100 ML IVPB SCH (10:35)
[2019-03-22] MEDS: methylPREDNISolone NA SUCC 40 MG/1 ML VIAL IVPUSH SCH (10:36)
[2019-03-22] MEDS: FLUTICASONE PROP 0.05% 16 GM NASAL SPRAY NS SCH ×2 (10:38→21:11)
[2019-03-22] MEDS: AZITHROMYCIN IVPB 250 MG in DEXTROSE 5%-WATER - 250 ML IVPB SCH (11:24)
--- NOTE | 2019-03-22 12:41 | PN ---
Progress Note (short form) - Note Progress Note: PULMONARY States breathing is improving. Less cough and wheezing. No fevers or chills. Vital Signs Period Temp Pulse Resp BP Sys/Brandt Pulse Ox Last 24 Hr 97.5 F-97.8 F 71-79 18-20 115-137/70-86 96-99 Gen: NAD on trach collar Heart: RRR Lung: scattered rhonchi Abd: soft, nontender Ext: no edema CBC, BMP 03/22/19 08:25 03/21/19 08:30 Active Medications Abacavir/Dolutegravir/Lamivudine (Triumeq (Non-Formulary)) 1 each PO DAILY [facility] Last Admin: 03/22/19 10:34 Dose: 1 each Acetaminophen (Tylenol -) 650 mg PO Q6H PRN PRN Reason: PAIN Last Admin: 03/19/19 23:05 Dose: 650 mg Albuterol Sulfate (Ventolin 0.083% Nebulizer Soln -) 1 amp NEB Q4H PRN PRN Reason: SHORT OF BREATH/WHEEZING Albuterol/Ipratropium (Duoneb -) 1 amp NEB RTID [facility]I Last Admin: 03/22/19 07:35 Dose: 1 amp Amlodipine Besylate (Norvasc -) 5 mg PO DAILY [facility] Last Admin: 03/22/19 10:33 Dose: 5 mg Atorvastatin Calcium (Lipitor -) 10 mg PO HS [facility] Last Admin: 03/21/19 21:37 Dose: 10 mg Fluticasone Propionate (Flonase -) 1 spray NS BID [facility]I Last Admin: 03/22/19 10:38 Dose: 1 spray Folic Acid (Folic Acid -) 1 mg PO DAILY [facility] Last Admin: 03/22/19 10:33 Dose: 1 mg Furosemide (Lasix -) 20 mg PO DAILY [facility] Last Admin: 03/22/19 10:33 Dose: 20 mg Heparin Sodium (Porcine) (Heparin -) 5,000 unit SQ TID LOI Last Admin: 03/22/19 05:51 Dose: 5,000 unit Azithromycin 250 mg/ Dextrose 250 mls @ 250 mls/hr IVPB DAILY [facility] Last Admin: 03/22/19 11:24 Dose: 250 mls/hr Ceftriaxone Sodium 2 gm/ (Dextrose) 100 mls @ 200 mls/hr IVPB DAILY [facility]I; Protocol Last Admin: 03/22/19 10:35 Dose: 200 mls/hr Levothyroxine Sodium (Synthroid -) 112 mcg PO DAILY@0700 [facility] Last Admin: 03/22/19 06:17 Dose: 112 mcg Loratadine (Claritin -) 10 mg PO DAILY PRN PRN Reason: allergies Methadone HCl 40 mg/ Methadone HCl 30 mg/ Methadone HCl 7.5 mg 77.5 mg PO 0600 [facility] Last Admin: 03/22/19 05:49 Dose: 77.5 mg Methylprednisolone Sodium Succinate (Solu-Medrol -) 60 mg IVPUSH DAILY [facility] Last Admin: 03/22/19 10:36 Dose: 60 mg Metoprolol Succinate (Toprol Xl -) 25 mg PO DAILY [facility] Last Admin: 03/22/19 10:34 Dose: 25 mg Mirtazapine (Remeron -) 30 mg PO [facility] Last Admin: 03/21/19 21:37 Dose: 30 mg Montelukast Sodium (Singulair -) 10 mg PO [facility] Last Admin: 03/21/19 21:37 Dose: 10 mg Multivitamins/Minerals (Theragran-M) 1 each PO DAILY [facility] Last Admin: 03/22/19 10:34 Dose: 1 each Quetiapine Fumarate (Seroquel -) 25 mg PO [facility] Last Admin: 03/21/19 21:37 Dose: 25 mg Sertraline HCl (Zoloft -) 50 mg PO DAILY [facility] Last Admin: 03/22/19 10:34 Dose: 50 mg Trazodone HCl (Desyrel -) 100 mg PO [facility] Last Admin: 03/21/19 21:37 Dose: 100 mg A/P Pneumonia Acute COPD Exacerbation Acute on Chronic Hypoxic and Hypercapneic Respiratory Failure HIV Laryngeal Ca s/p Tracheostomy HTN Hyperlipidemia - continue antibiotics per ID - will change steroids to PO prednisone 40mg daily and can taper as outpt - O2 to keep SPo2 >90% - inhaled bronchodilators - outpt f/u of chest imaging to ensure resolution of infiltrate - DVT prophylaxis
[2019-03-22] MEDS ORDERED: DOXYCYCLINE HYCLATE 100 MG CAPSULE PO SCH (14:45)
--- NOTE | 2019-03-22 17:35 | DS ---
Physical Exam: SUBJECTIVE: Patient seen and examined by the bedside, AOx3 OBJECTIVE: Vital Signs Period Temp Pulse Resp BP Sys/Brandt Pulse Ox Last 24 Hr 97.4 F-97.8 F 74-76 18-20 115-127/66-86 96-99 PHYSICAL EXAM GENERAL: Awake, alert, and fully oriented, in no acute distress. EYES: PEERLA: EOMI: no scleral icterus NECK:no JVD; no lymphadenopathy LUNGS: wheezes B/L; crackles at bases B/L HEART: Regular rate and rhythm, normal S1 and S2 without murmur, rub or gallop. ABDOMEN: Soft, non distended, nontender, MUSCULOSKELETAL: Normal range of motion at all joints. No bony deformities or tenderness. EXTREMITIES: warm; well-perfused no clubbing/cyanosis or edema NEUROLOGICAL: Cranial nerves II-XII intact. Normal speech. Normal gait. PSYCHIATRIC: Cooperative. Good eye contact. Appropriate mood and affect. SKIN: Warm, dry, normal turgor, no rashes or lesions noted, normal capillary refill. LABS Laboratory Results - last 24 hr 03/22/19 08:25 WBC 9.7 RBC 2.85 L Hgb 9.2 L Hct 28.3 L MCV 99.3 H MCH 32.1 MCHC 32.4 RDW 14.5 Plt Count 296 MPV 7.3 L HOSPITAL COURSE: Date of Admission:03/19/19 59 year old female with history of HIV (HAART), IVDU (Methadone), Laryngeal Ca ( s/p Laryngectomy, Tracheostomy), COPD, CRF, HTN, HLD, Depression, presents with history of fevers & chills since Monday night, associated with dry cough and SOB requiring increased oxygen. Med Hx: HIV, last CD4 count 454 in 01/2019 on HAART therapy Surgical Hx: tracheostomy 11 years ago Smoking:former smoker quit 15 years ago Alcohol:denies Drugs: None Family History:mother DM Allergies: Latex, Levofloxacin, Penicillins ER course: 1. T 98.5, WBC 10.1, Lactic Acid 1.1 2. CXR: new bibasilar infiltrates with/ fluid and some congestion 3. Ceftriaxone 2gm, Azithro 250mg Date of Discharge: 03/22/19 #Acute on Chronic Respiratory failure secondary to Bilateral Pneumonia CXR showed bibasilar infiltrates. Completed Ceftriaxone/Azithromycin IV 3 days ( Allergic to Levo/Penicillin) - Sputum cx: normal apolinar - Gram stain: Rare polymorphonuclear WBCs, few gram positive bacilli - Urine Legionella antigen negative - Urine cx: normal apolinar - Blood cx: no growth 48h #COPD -Duonebs, Solumedrol 60mg IVPUSH # HTN -Continue Metoprolol 25mg, Norvasc 5mg # HIV on HAART -On Triumeq, ID following. # Depression/Anxiety -Continue Zoloft, Seroquel, Remeron # HLD -Continue Pravastatin 10mg # Hypothyroidism - continue Levothyroxine. # Hx IVDU - continue Methadone #DVT PE -Heparin SQ. Discharge Summary Reason For Visit: HUMAN IMMUNODEFICIENCY VIRUS; HX TRACH; PNEUMONIA Current Active Problems Anemia (Acute) CAP (community acquired pneumonia) (Acute) Carcinoma larynx (Acute) Hypoxia (Acute) Pneumonia (Acute) Tracheostomy dependence (Acute) HIV (human immunodeficiency virus infection) (Chronic) Condition: Improved - Instructions Diet, Activity, Other Instructions: You were admitted to the hospital because you were having difficulty breathing. While you were here, we did a scan of your chest (X Ray), which showed an infection in your lungs (pneumonia). We also checked your urine and blood for an infection (cultures), both were normal. While you were here, you were given IV antibiotics, fluids, and steroids to help with your breathing. The infection in your lungs is now better and you do not require any further treatment at the hospital. Medications: - Please continue taking Ceftin 500mg by mouth twice a day for 5 days - Please take Doxycycline 100mg by mouth twice a day (every 12 hours) for 7 days - Please continue taking Deltasone for 6 more days: 40mg by mouth once a day (2 pills) for 2 days then 30mg by mouth once a day (1.5 pills) for two days then 20mg by mouth once a day (one pill a day) for two days. - Please take ALL of your other home meds as prescribed. 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 You will need to get repeat chest imaging as an outpatient. Additional Information: Please return to the Emergency Department if you have any of the following: Severe shortness of breath, loss of consciousness, nausea, dizziness, vomiting, diarrhea, bleeding that will not stop, blood in your urine, or persistent headache. Referrals: Pilo Ryan MD, [Staff Physician] - Disposition: HOME - Home Medications Comprehensive Discharge Medication List: Ambulatory Orders Methadone [Dolophine -] 78 mg PO DAILY 01/09/18 Fluticasone Prop 0.05% Nasal [Flonase -] 1 spray NS BID #1 spray.pump 11/22/18 Mirtazapine [Remeron -] 30 mg PO DAILY #30 tablet 01/16/19 Quetiapine Fumarate [Seroquel -] 25 mg PO HS #30 tablet 01/16/19 Sertraline HCl [Zoloft -] 50 mg PO HS #30 tablet 01/16/19 traZODone HCL [Trazodone HCl] 100 mg PO HS #30 tablet MDD 1 01/16/19 Abacavir/Dolutegravir/Lamivudi [Triumeq 600-50-300 mg Tablet] 1 each PO DAILY # 30 tablet 02/12/19 Albuterol 2.5/Ipratropium 0.5 [Duoneb -] 1 amp NEB Q6H PRN #30 amp 02/12/19 Amlodipine Besylate [Norvasc -] 5 mg PO DAILY #30 tablet 02/12/19 Folic Acid - 1 mg PO DAILY #30 tablet 02/12/19 Furosemide [Lasix -] 20 mg PO DAILY #30 tablet 02/12/19 Levothyroxine [Synthroid -] 112 mcg PO DAILY #30 tablet 02/12/19 Loratadine 10 mg PO DAILY PRN #30 tablet 02/12/19 Metoprolol Succinate [Toprol Xl] 25 mg PO DAILY #30 tab.er.24h 02/12/19 Montelukast Na [Singulair -] 10 mg PO HS #30 tablet 02/12/19 Multivitamin,Ther and Minerals [Vitamin and Minerals] 1 each PO DAILY #30 tablet 02/12/19 Pravastatin Sodium 10 mg PO HS #30 tablet 02/12/19 Albuterol 2.5/Ipratropium 0.5 [Duoneb -] 1 amp NEB RTID amp 03/22/19 Cefuroxime Axetil [Ceftin -] 500 mg PO BID #10 tablet 03/22/19 Doxycycline Hyclate 100 mg PO BID #14 capsule 03/22/19 Folic Acid - 1 mg PO DAILY tablet 03/22/19 predniSONE [Deltasone -] 40 mg PO DAILY #5 tablet 03/22/19 traZODone HCL [Desyrel -] 100 mg PO HS tablet 03/22/19 ATTENDING PHYSICIAN STATEMENT I saw and evaluated the patient. I reviewed the resident's note and discussed the case with the resident. I agree with the resident's findings and plan as documented. SUBJECTIVE: OBJECTIVE: ASSESSMENT AND PLAN:
[2019-03-22] MEDS ORDERED: traZODone HCL 50 MG TABLET (FP) ONE (21:05)
[2019-03-22] MEDS: MONTELUKAST NA 10 MG TABLET PO SCH (21:09)
[2019-03-22] MEDS: QUEtiapine FUMARATE 25 MG TABLET (FP) PO SCH (21:09)
[2019-03-22] MEDS: traZODone HCL 100 MG TABLET (FP) PO SCH (21:09)
[2019-03-22] MEDS: ATORVASTATIN CA 10 MG TABLET (FP) PO SCH (21:09)
[2019-03-22] MEDS: MIRTAZAPINE 15 MG TABLET (FP) PO SCH (21:09)
[2019-03-22 21:29] VITALS: BP 134/81; PULSE 78; TEMP 98.1
[2019-03-22] MEDS ORDERED: CEFUROXIME AXETIL 500 MG TABLET PO SCH (22:00)
[2019-03-23] MEDS ORDERED: predniSONE 20 MG TABLET (UD) PO SCH (10:00)
== END 2019-03-22 22:00 | disposition home or self-care (01) | DRG 177 ==
LOC: JER 10:10 → JERBED 13:00 → J8W 15:35
PROVIDERS: ATTEND Internal Medicine
DX: J15.211 Pneumonia due to Methicillin susceptible Staphylococcus aureus (principal); J96.22 Acute and chronic respiratory failure with hypercapnia; J96.21 Acute and chronic respiratory failure with hypoxia; J98.11 Atelectasis; I50.32 Chronic diastolic (congestive) heart failure; F11.20 Opioid dependence, uncomplicated; Z21 Asymptomatic human immunodeficiency virus [HIV] infection status; I11.0 Hypertensive heart disease with heart failure; E03.9 Hypothyroidism, unspecified; E78.5 Hyperlipidemia, unspecified; J44.9 Chronic obstructive pulmonary disease, unspecified; D53.9 Nutritional anemia, unspecified; E66.9 Obesity, unspecified; Z68.36 Body mass index [BMI] 36.0-36.9, adult; Z88.0 Allergy status to penicillin; K59.00 Constipation, unspecified; Z93.0 Tracheostomy status; Z85.21 Personal history of malignant neoplasm of larynx; Z87.891 Personal history of nicotine dependence; Z99.81 Dependence on supplemental oxygen; Z90.02 Acquired absence of larynx; F41.9 Anxiety disorder, unspecified; F32.9 Major depressive disorder, single episode, unspecified
CPT/HCPCS: 36415; 71045-TC-FY; 80053; 81003; 82550; 82803; 83605; 83735; 84484; 85025; 85027; 85610; 85730; 86850; 86900; 86901; 87040; 87070; 87086; 87186; 87205; 87899; 93005; 93010; 94640; 99283-25; J0131; J1644

== ENCOUNTER 2019-06-26 18:05 | Inpatient (IN) | payer OTHER ==
--- NOTE | 2019-06-26 18:18 | PDOC ---
Rapid Medical Evaluation Time Seen by Provider: 06/26/19 18:12 Medical Evaluation: Allergies Allergy/AdvReac Type Severity Reaction Status Date / Time latex Allergy Verified 03/19/19 10:15 levofloxacin [From Levaquin] Allergy Verified 03/19/19 10:15 Penicillins Allergy Verified 03/19/19 10:15 06/26/19 18:14 I have performed a brief in-person evaluation of this patient. The patient presents with a chief complaint of: lt sided chest abd pain, cxr done by pcp at [facility], ? infiltrates with congestion Pertinent physical exam findings: vss, on ventimask via trach I have ordered the following: labs, blood cx, chest ct The patient will proceed to the ED for further evaluation. 06/26/19 18:16 Discharge Disposition - Diagnosis COPD (chronic obstructive pulmonary disease) - Discharge Dispostion Disposition: HOME Condition at time of disposition: Stable - Referrals - Patient Instructions - Post Discharge Activity
[2019-06-26 19:21] LABS: BASO % 0.7 % (0-2.0); EOS % 1.2 % (0-4.5); HEMATOCRIT 29.4 % (32.4-45.2); HEMOGLOBIN 9.3 GM/dL (10.7-15.3); LYMPH % 18.6 % (8-40); MCH 30.7 pg (25.7-33.7); MCHC 31.6 g/dl (32.0-36.0); MEAN CELL VOLUME 97.2 fl (80-96); MEAN PLT VOLUME 9.1 fl (7.5-11.1); MONO % 5.8 % (3.8-10.2); NEUT % 73.7 % (42.8-82.8); PLATELET COUNT 238 K/MM3 (134-434); RBC 3.03 M/mm3 (3.60-5.2); RDW 14.7 % (11.6-15.6); WHITE BLOOD COUNT 5.7 K/mm3 (4.0-10.0)
--- NOTE | 2019-06-26 19:40 | PDOC ---
History of Present Illness - General Chief Complaint: Shortness of Breath Stated Complaint: EVALUATION Time Seen by Provider: 06/26/19 18:12 - History of Present Illness Initial Comments: Ms. Jey Sapp is a 59 y/o female with extensive PMH including HIV (last CD4 count 500), asthma, emphysema, COPD, HTN, HLD, throat CA s/p trach, presenting today with shortness of breath and left sided flank pain that started on Monday. Per daughter, she started having some left flank pain on Monday and felt that she had shortness of breath on exertion while walking today compared to two days ago. She was seen at [facility] by a PROPERTY CLAIM REP who sent her in for a CXR, and was called back for a CT chest. Denies chest pain, headache, fever, chills, nausea/vomiting, abdominal pain, urinary symptoms, changes in stool, leg swelling. Past History - Past Medical History Allergies/Adverse Reactions: Allergies Allergy/AdvReac Type Severity Reaction Status Date / Time latex Allergy Verified 06/26/19 18:16 levofloxacin [From Levaquin] Allergy Verified 06/26/19 18:16 Penicillins Allergy Verified 06/26/19 18:16 Home Medications: Ambulatory Orders Methadone [Dolophine -] 78 mg PO DAILY 01/09/18 Fluticasone Prop 0.05% Nasal [Flonase -] 1 spray NS BID #1 spray.pump 11/22/18 Acetaminophen [Tylenol .Regular Strength -] 650 mg PO Q6H PRN #100 tablet Ferrous Sulfate 325 mg PO DAILY #30 tablet 04/29/19 Abacavir/Dolutegravir/Lamivudi [Triumeq 600-50-300 mg Tablet] 1 each PO DAILY # 30 tablet 05/29/19 Albuterol 2.5/Ipratropium 0.5 [Duoneb -] 1 amp NEB Q6H PRN #30 amp 05/29/19 Amlodipine Besylate [Norvasc -] 5 mg PO DAILY #30 tablet 05/29/19 Folic Acid - 1 mg PO DAILY #30 tablet 05/29/19 Furosemide [Lasix -] 20 mg PO DAILY #30 tablet 05/29/19 Levothyroxine [Synthroid -] 112 mcg PO DAILY #30 tablet 05/29/19 Loratadine 10 mg PO DAILY PRN #30 tablet 05/29/19 Metoprolol Succinate [Toprol Xl] 25 mg PO DAILY #30 tab.er.24h 05/29/19 Montelukast Na [Singulair -] 10 mg PO HS #30 tablet 05/29/19 Multivitamin,Ther and Minerals [Vitamin and Minerals] 1 each PO DAILY #30 tablet 05/29/19 Pravastatin Sodium 10 mg PO HS #30 tablet 05/29/19 Clotrimazole/Betamethasone Dip [Clotrimazole-Betamethasone Lot] 1 applic TP BID #30 g 06/10/19 Carboxymethylcellulose Sodium [Thera Tears] 1 - 2 drop OD PRN #30 ml 06/18/19 Erythromycin 0.5% Eye Ointment [Erythromycin 0.5% Eye Ointment -] 1 cm OD Q6H # 1 tube 06/18/19 Docusate Liquid [Colace Liquid -] 50 mg PO TID PRN #225 ml 06/26/19 Mirtazapine [Remeron -] 30 mg PO DAILY #30 tablet 06/26/19 Quetiapine Fumarate [Seroquel -] 50 mg PO HS #30 tablet 06/26/19 Sertraline HCl [Zoloft -] 50 mg PO AM #30 tablet 06/26/19 traZODone HCL [Desyrel -] 100 mg PO HS #30 tablet 06/26/19 Anemia: No Asthma: No Cancer: Yes (larynx) Cardiac Disorders: Yes (enlarged heart) CVA: No COPD: Yes (emphysema) CHF: No DVT: No Dementia: No Diabetes: No GI Disorders: No Disorders: No HTN: Yes Hypercholesterolemia: Yes Liver Disease: No Seizures: No Thyroid Disease: No - Surgical History Abdominal Surgery: No Appendectomy: No Cardiac Surgery: No Cholecystectomy: No Lung Surgery: No Neurologic Surgery: No Orthopedic Surgery: No (Larygotomy) - Immunization History Immunization Up to Date: Yes - Psycho Social/Smoking Cessation Hx Smoking Status: No Smoking History: Never smoked Have you smoked in the past 12 months: No Number of Cigarettes Smoked Daily: 0 If you are a former smoker, when did you quit?: 10 YEARS Cigars Per Day: 0 Information on smoking cessation initiated: No Hx Alcohol Use: No Drug/Substance Use Hx: No Substance Use Type: None Hx Substance Use Treatment: No Respiratory Specific PMHX - Complaint Specific PMHX Hx Pneumonia: No Hx TB (Tuberculosis): No Review of Systems - Review of Systems Comments:: GENERAL/CONSTITUTIONAL: No fever or chills. No weakness. HEAD, EYES, EARS, NOSE AND THROAT: No change in vision. No change in hearing. No sore throat._ CARDIOVASCULAR: No chest pain. Reports shortness of breath. RESPIRATORY: Denies cough, hemoptysis. GASTROINTESTINAL: No abdominal pain. No nausea, vomiting, diarrhea or constipation. GENITOURINARY: No dysuria, frequency, or change in urination. MUSCULOSKELETAL: No joint or muscle swelling or pain. No neck or back pain. Reports left flank pain. SKIN: No rash. NEUROLOGIC: No headache, vertigo, loss of consciousness, or change in strength/ sensation. ENDOCRINE: No increased thirst. No abnormal weight change. HEMATOLOGIC/LYMPHATIC: No anemia, easy bleeding. ALLERGIC/IMMUNOLOGIC: No hives or skin allergy. *Physical Exam - Vital Signs Last Vital Signs Temp Pulse Resp BP Pulse Ox 99.2 F 101 H 19 147/83 100 06/26/19 18:13 06/26/19 18:13 06/26/19 18:13 06/26/19 18:13 06/26/19 19:24 - Physical Exam Comments: GENERAL: Awake, alert, and oriented to person/place/time, in no acute distress_ HEAD: No signs of trauma, normocephalic, atraumatic _ EYES: PERRLA, EOMI, sclera anicteric, conjunctiva clear_ ENT: Hearing grossly normal, nares patent, oropharynx clear without exudates. No uvular deviation. Moist mucosa. Trach in place. NECK: Normal ROM, supple, no lymphadenopathy, JVD, or masses_ LUNGS: No distress, speaks in full sentences, diffuse bibasilar wheezes. HEART: Regular rate and rhythm, normal S1 and S2, no murmurs appreciated, peripheral pulses normal and equal bilaterally._ ABDOMEN: Soft, protuberant, nontender, normoactive bowel sounds. No guarding, no rebound. No masses_ EXTREMITIES: Normal inspection, Normal range of motion, 1+ pitting edema bilaterally. No clubbing or cyanosis_ NEUROLOGICAL: Cranial nerves II through XII grossly intact. Normal speech, no focal sensorimotor deficits _ SKIN: Warm, Dry, normal turgor, no rashes or lesions noted_ ED Treatment Course - LABORATORY CBC & Chemistry Diagram: 06/26/19 18:58 06/26/19 18:58 - ADDITIONAL ORDERS Additional order review: 06/26/19 18:58 RBC 3.03 L MCV 97.2 H MCHC 31.6 L RDW 14.7 MPV 9.1 Neutrophils % 73.7 Lymphocytes % 18.6 Monocytes % 5.8 Eosinophils % 1.2 Basophils % 0.7 - RADIOLOGY Radiology Studies Ordered: Category Date Time Status CHEST CT WITH CONTRAST [CT] Stat CT Scan 06/26/19 19:12 Ordered Medical Decision Making - Medical Decision Making 59F hx of HIV COPD asthma emphysema s/p trach here for shortness of breath and left flank pain. CXR earlier today showed left sided infiltrate. Afebrile. -cbc, cmp -ct chest -lactic acid -trop -blood cx, trach cx 06/26/19 19:43 EKG shows NSR, 74 bpm, no ST elevation/depression, QTc 444. 06/26/19 19:47 Labs reviewed. WBC wnl. D/w Dr. Mercado who states that as the patient's CD4 count is almost 500, there does not appear to be a need to treat for atypical pneumonia. 06/26/[address] chest shows no acute infiltrate or consolidation, mildly increased left basilar discord atelectasis/scarring. Centrilobular emphysema.Otherwise no other interval change from 2018 CT. Duplex venous US BLE shows no signs of DVT. Plan to admit for COPD exacerbation. -duonebs -steroids 06/26/19 22:04 D/w the hospitalist who agrees to accept the patient for admission. Discharge - Discharge Information Problems reviewed: Yes Clinical Impression/Diagnosis: COPD (chronic obstructive pulmonary disease) Qualifiers: COPD type: emphysema Condition: Stable - Admission Yes - Follow up/Referral - Patient Discharge Instructions - Post Discharge Activity
[2019-06-26 19:49] LABS: ALBUMIN 3.6 g/dl (3.4-5.0); BILIRUBIN,TOTAL 0.2 mg/dL (0.2-1); BLOOD UREA NITROGEN 11.2 mg/dL (7-18); CALCIUM 8.9 mg/dL (8.5-10.1); CREATININE 1.1 mg/dL (0.55-1.3); POTASSIUM 3.7 mmol/L (3.5-5.1); TOT PROT 7.8 g/dl (6.4-8.2)
--- NOTE | 2019-06-26 19:50 | PDOC ---
Attending Attestation - Resident Resident Name: Darni Euceda - ED Attending Attestation I have performed the following: I have examined & evaluated the patient, The case was reviewed & discussed with the resident, I agree w/resident's findings & plan - HPI HPI: 06/26/19 22:16 Ms. Jey Sapp is a 59 y/o female with extensive PMH including HIV (last CD4 count 500), asthma, emphysema, COPD, HTN, HLD, throat CA s/p trach, presenting today with shortness of breath and left sided flank pain that started on Monday. Per daughter, she started having some left flank pain on Monday and felt that she had shortness of breath on exertion while walking today compared to two days ago. She was seen at [facility] by a BOILER TENDER who sent her in for a CXR, and was called back for a CT chest. - Physicial Exam PE: 06/26/19 19:49 Agree with the resident's HPI and PE as documented in the electronic medical record. NAD, well appearing, EOMI, PERRL, nl conjunctiva, anicteric; neck supple. + tracheostomy site, stoma intact. lungs with bibasilar faint crackles, no respiratory distress. RRR, abdomen soft nontender. no rebound, guarding. Back nontender. LOVE x4, no focal neuro deficits. 1+ peripheral edema. no calf tenderness. normal color for ethnicity, WWP. 06/26/19 20:22 - Medical Decision Making 06/26/19 19:49 Vital Signs Temp Pulse Resp BP Pulse Ox 99.2 F 76 22 H 121/76 99 06/26/19 18:13 06/26/19 19:43 06/26/19 19:43 06/26/19 19:43 06/26/19 19:43 VS reviewed, wnl. no fever. ddx. infection, pna, viral syndrome, influenza, anemia, electrolyte/metabolic derangements. ACS, arrhythmia, PE, DVT. basic labs, lytes wnl. no wbc ct. influenza neg. cultures pending CT chest. ID cs, Dr Mercado_agree with plan. declines analgesia, trop neg, doubt ACS, EKG unremarkable, unchanged from prior, NSR. 06/26/19 20:09 CT chest with mild to moderate central lobar emphysema similar to prior, right- sided basilar scarring, parenchymal scarring, tracheostomy site is seen, stable right upper lobe pulmonary nodule, mild cardiomegaly, very small pericardial fluid similar to prior imaging, no obvious lymphadenopathy, no acute infiltrate is noted, scoliosis. Duplex study is negative for DVT bilaterally. treat as COPD exacerbation, given pulm findings and SALDAÑA, iv solumedrol, duonebs x 3 via trach site hold abx, no fever or infectious findings, CT chest neg for infiltrate. as area visualized as possible infiltrate is left lower lobe scarring. admit to medical service, hospitalist team. admitting to Dr Henao service. 06/26/19 21:36 06/26/19 22:17 Heart Score/ECG Review #1 ECG reviewed & interpreted by me at: 19:20 General ECG Interpretation: Sinus Rhythm, Normal Rate, Normal Intervals Compared to previous ECG there are: No significant change 06/26/19 19:50 EKG normal sinus rhythm at 74 bpm, no interval abnormalities, narrow QRS, ST and T wave segments and morphology normal. Nonspecific T wave abnormalities
[2019-06-26] MEDS ORDERED: ALBUTEROL SO4 2.5/IPRATROPIUM 0.5 INH SOL 3 ML VIAL.NEB. NEB ONE ×2 (21:34→21:47)
[2019-06-26] MEDS ORDERED: methylPREDNISolone NA SUCC 125 MG/2 ML VIAL IVPUSH ONE (21:34)
[2019-06-26] MEDS ORDERED: methylPREDNISolone NA SUCC 125 MG/2 ML VIAL ONE (21:47)
[2019-06-26] MEDS ORDERED: ALBUTEROL SO4 0.083% IH SOL 2.5 MG/3 ML VIAL.NEB. NEB PRN (22:54)
[2019-06-26] MEDS ORDERED: AZITHROMYCIN 250 MG TABLET PO ONE (22:55)
[2019-06-26] MEDS ORDERED: AZITHROMYCIN 250 MG TABLET ONE (23:55)
--- NOTE | 2019-06-27 00:01 | HP ---
CHIEF COMPLAINT: SOB PCP: Dr Mercado HISTORY OF PRESENT ILLNESS: 59 year old female with past medical history COPD, emphysema, asthma, laryngeal cancer (s/p tracheostomy), HIV (last CD4 count 500), hypothyroidism, HTN and HLD presented to the ED with chief complain of SOB and left lower chest pain since Monday. Per daughter, pt is able to ambulate about 25 yards while on 10 liters of oxygen tank without getting short of breath. However, since Monday pt has been getting short of breath with walking 15 yards. Pt also reports pleuritic left lower chest pain than is worse on inspiration. Pt only takes albuterol for COPD and has been admitted 5 times for COPD exacerbation in the last 18 months. CXR done at the [facility] revealed possible left lower lobe infiltrate and was called for a follow up chest CT evaluation. Pt denies any recent illness,fevers, chills, nausea, vomiting, cough or hemoptysis. ER course was notable for: (1) CBC with macrocytic anemia of 9.3/29.4 MCV 97.2. EKG NSR with Nonspecific T wave abnormalities (2) Chest CT mild to moderate central lobar emphysema similar to prior, right- sided basilar scarring, parenchymal scarring, tracheostomy site is seen, stable right upper lobe pulmonary nodule, mild cardiomegaly, very small pericardial fluid similar to prior imaging, no obvious lymphadenopathy, no acute infiltrate is noted (3) tylenol, duonebs, solumedrol Recent Travel: none PAST MEDICAL HISTORY: as above PAST SURGICAL HISTORY: laryngotomy Social History: Smoking: former smoker quit 10 yrs ago Alcohol: social drinker Drugs: denies Allergies latex Allergy (Verified 06/26/19 18:16) levofloxacin [From Levaquin] Allergy (Verified 06/26/19 18:16) Penicillins Allergy (Verified 06/26/19 18:16) HOME MEDICATIONS: Home Medications Medication Instructions Recorded Methadone [Dolophine -] 78 mg PO DAILY 01/09/18 Fluticasone Prop 0.05% Nasal 1 spray NS BID #1 spray.pump 11/22/18 [Flonase -] Acetaminophen [Tylenol .Regular 650 mg PO Q6H PRN #100 tablet 04/29/19 Strength -] Ferrous Sulfate 325 mg PO DAILY #30 tablet 04/29/19 Abacavir/Dolutegravir/Lamivudi 1 each PO DAILY #30 tablet 05/29/19 [Triumeq 600-50-300 mg Tablet] Albuterol 2.5/Ipratropium 0.5 1 amp NEB Q6H PRN #30 amp 05/29/19 [Duoneb -] Amlodipine Besylate [Norvasc -] 5 mg PO DAILY #30 tablet 05/29/19 Folic Acid - 1 mg PO DAILY #30 tablet 05/29/19 Furosemide [Lasix -] 20 mg PO DAILY #30 tablet 05/29/19 Levothyroxine [Synthroid -] 112 mcg PO DAILY #30 tablet 05/29/19 Loratadine 10 mg PO DAILY PRN #30 tablet 05/29/19 Metoprolol Succinate [Toprol Xl] 25 mg PO DAILY #30 tab.er.24h 05/29/19 Montelukast Na [Singulair -] 10 mg PO HS #30 tablet 05/29/19 Multivitamin,Ther and Minerals 1 each PO DAILY #30 tablet 05/29/19 [Vitamin and Minerals] Pravastatin Sodium 10 mg PO HS #30 tablet 05/29/19 Clotrimazole/Betamethasone Dip 1 applic TP BID #30 g 06/10/19 [Clotrimazole-Betamethasone Lot] Carboxymethylcellulose Sodium 1 - 2 drop OD PRN #30 ml 06/18/19 [Thera Tears] Erythromycin 0.5% Eye Ointment 1 cm OD Q6H #1 tube 06/18/19 [Erythromycin 0.5% Eye Ointment -] Docusate Liquid [Colace Liquid -] 50 mg PO TID PRN #225 ml 06/26/19 Mirtazapine [Remeron -] 30 mg PO DAILY #30 tablet 06/26/19 Quetiapine Fumarate [Seroquel -] 50 mg PO HS #30 tablet 06/26/19 Sertraline HCl [Zoloft -] 50 mg PO AM #30 tablet 06/26/19 traZODone HCL [Desyrel -] 100 mg PO HS #30 tablet 06/26/19 REVIEW OF SYSTEMS CONSTITUTIONAL: Absent: fever, chills, diaphoresis, generalized weakness, malaise, loss of appetite, weight change HEENT: Absent: rhinorrhea, nasal congestion, throat pain, throat swelling, difficulty swallowing, mouth swelling, ear pain, eye pain, visual changes CARDIOVASCULAR: Absent: chest pain, syncope, palpitations, irregular heart rate, lightheadedness , peripheral edema RESPIRATORY: shortness of breath, dyspnea with exertion Absent: cough, shortness of breath, dyspnea with exertion, orthopnea, wheezing, stridor, hemoptysis GASTROINTESTINAL: Absent: abdominal pain, abdominal distension, nausea, vomiting, diarrhea, constipation, melena, hematochezia GENITOURINARY: Absent: dysuria, frequency, urgency, hesitancy, hematuria, flank pain, genital pain MUSCULOSKELETAL: Absent: myalgia, arthralgia, joint swelling, back pain, neck pain SKIN: Absent: rash, itching, pallor HEMATOLOGIC/IMMUNOLOGIC: Absent: easy bleeding, easy bruising, lymphadenopathy, frequent infections ENDOCRINE: Absent: unexplained weight gain, unexplained weight loss, heat intolerance, cold intolerance NEUROLOGIC: Absent: headache, focal weakness or paresthesias, dizziness, unsteady gait, seizure, mental status changes, bladder or bowel incontinence PSYCHIATRIC: Absent: anxiety, depression, suicidal or homicidal ideation, hallucinations. PHYSICAL EXAMINATION Vital Signs - 24 hr 06/26/19 06/26/19 06/26/19 18:13 19:24 19:43 Temperature 99.2 F Pulse Rate 101 H Pulse Rate [ 76 Radial] Respiratory 19 22 H Rate Blood Pressure 147/83 Blood Pressure 121/76 [Right Arm] O2 Sat by Pulse 95 100 99 Oximetry (%) GENERAL: Awake, alert, and fully oriented, in no acute distress. HEAD: Normal with no signs of trauma. EYES: Pupils equal, round and reactive to light, extraocular movements intact, sclera anicteric, conjunctiva clear. No lid lag. EARS, NOSE, THROAT: oropharynx clear without exudates. Moist mucous membranes. NECK: Normal range of motion, supple without lymphadenopathy, JVD, or masses. LUNGS: Breath sounds equal, clear to auscultation bilaterally. mild wheezing and crackles. No accessory muscle use. HEART: Regular rate and rhythm, normal S1 and S2 without murmur, rub or gallop. ABDOMEN: Soft, nontender, not distended, normoactive bowel sounds, no guarding, no rebound, no masses. No hepatomegaly or splenomegaly. MUSCULOSKELETAL: Normal range of motion at all joints. No bony deformities or tenderness. No CVA tenderness. UPPER EXTREMITIES: 2+ pulses, warm, well-perfused. No cyanosis. No clubbing. No peripheral edema. LOWER EXTREMITIES: 2+ pulses, warm, well-perfused. No calf tenderness. + peripheral edema. PSYCHIATRIC: Cooperative. Good eye contact. Appropriate mood and affect. SKIN: Warm, dry, normal turgor, no rashes or lesions noted, normal capillary refill. Laboratory Results - last 24 hr 06/26/19 06/26/19 06/26/19 18:40 18:58 18:58 WBC 5.7 RBC 3.03 L Hgb 9.3 L Hct 29.4 L MCV 97.2 H MCH 30.7 MCHC 31.6 L RDW 14.7 Plt Count 238 D MPV 9.1 Absolute Neuts (auto) 4.2 Neutrophils % 73.7 Lymphocytes % 18.6 Monocytes % 5.8 Eosinophils % 1.2 Basophils % 0.7 Nucleated RBC % 0 Sodium Potassium Chloride Carbon Dioxide Anion Gap BUN Creatinine Est GFR (CKD-EPI)AfAm Est GFR (CKD-EPI)NonAf Random Glucose Lactic Acid 1.5 Calcium Total Bilirubin AST ALT Alkaline Phosphatase Creatine Kinase 176 Creatine Kinase Index No Result Required. CK-MB (CK-2) < 1.0 Troponin I < 0.02 Total Protein Albumin Influenza A (Rapid) Influenza B (Rapid) 06/26/19 06/26/19 18:58 19:38 WBC RBC Hgb Hct MCV MCH MCHC RDW Plt Count MPV Absolute Neuts (auto) Neutrophils % Lymphocytes % Monocytes % Eosinophils % Basophils % Nucleated RBC % Sodium 140 Potassium 3.7 Chloride 101 Carbon Dioxide 36 H Anion Gap 3 L BUN 11.2 Creatinine 1.1 Est GFR (CKD-EPI)AfAm 64.09 Est GFR (CKD-EPI)NonAf 55.30 Random Glucose 97 Lactic Acid Calcium 8.9 Total Bilirubin 0.2 AST 20 ALT 9 L Alkaline Phosphatase 109 Creatine Kinase Cancelled Creatine Kinase Index CK-MB (CK-2) Troponin I Cancelled Total Protein 7.8 Albumin 3.6 Influenza A (Rapid) Negative Influenza B (Rapid) Negative ASSESSMENT/PLAN: 59 year old female with past medical history COPD, emphysema, asthma, laryngeal cancer (s/p tracheostomy), HIV (last CD4 count 500), hypothyroidism, HTN and HLD presented to the ED with chief complain of SOB and left lower chest pain since Monday admitted for COPD exacerbation SOB 2/2 COPD exacerbation pt denied any recent illness or cough rapid influenza negative legionella and blood cultures sent from ED Non rebreather with 10L oxygen ( at home rate) albuterol Q6h duonebs azithromycin 500mg once and will cont at 250 daily prednisone 40 daily BGM for steroid use Anemia with macrocytosis poss from HIV basic anemia workup iron profile ferritin retic count stool for occult blood HIV last CD4 above 500 CD4 and viral load cont home med Triumeq ID Dr Mercado consulted Hypothyroidism Send TSH Continue Synthroid 112 mcg p.o. daily HTN resume home meds once med rec HLD resume home meds once med rec FEN sodium /fat controlled diet no standing fluids monitor lytes DVT hep subQ Visit type - Emergency Visit Emergency Visit: Yes ED Registration Date: 06/26/19 Care time: The patient presented to the Emergency Department on the above date and was hospitalized for further evaluation of their emergent condition. - New Patient This patient is new to me today: Yes Date on this admission: 06/27/19 - Critical Care Critical Care patient: No ATTENDING PHYSICIAN STATEMENT I saw and evaluated the patient. I reviewed the resident's note and discussed the case with the resident. I agree with the resident's findings and plan as documented. SUBJECTIVE: OBJECTIVE: ASSESSMENT AND PLAN:
[2019-06-27] MEDS ORDERED: ALBUTEROL SO4 2.5/IPRATROPIUM 0.5 INH SOL 3 ML VIAL.NEB. NEB ONE (00:09)
--- NOTE | 2019-06-27 00:48 | PN ---
Teaching Attending Note Name of Resident: Silvia Ashton ATTENDING PHYSICIAN STATEMENT I saw and evaluated the patient. I reviewed the resident's note and discussed the case with the resident. I agree with the resident's findings and plan as documented. SUBJECTIVE: 59 y/o female with extensive PMH including HIV (last CD4 count 500), asthma, emphysema, COPD, HTN, HLD, throat CA s/p trach, Complained of shortness of breath and left flank pain which started on Monday. Patient has reported 2 days of shortness of breath worse with exertion. S OBJECTIVE: Last Vital Signs Temp Pulse Resp BP Pulse Ox 99.2 F 76 22 H 121/76 99 06/26/19 18:13 06/26/19 19:43 06/26/19 19:43 06/26/19 19:43 06/26/19 19:43 GENERAL: Well developed, well nourished. Awake and alert. No acute distress. HEENT: Normocephalic, atraumatic. PERRLA, EOMI. No conjunctival pallor. Sclera are non- icteric. Moist mucous membranes. Oropharynx is clear. NECK: Supple. Full ROM. No JVD. Carotid pulses 2+ and symmetric, without bruits. No thyromegaly. No lymphadenopathy. CARDIOVASCULAR: Regular rate and rhythm. No murmurs, rubs, or gallops. Distal pulses are 2+ and symmetric. PULMONARY: No evidence of respiratory distress. Lungs clear to auscultation bilaterally. No wheezing, rales or rhonchi. ABDOMINAL: Soft. Non-tender. Non-distended. No rebound or guarding. No organomegaly. Normoactive bowel sounds. MUSCULOSKELETAL Normal range of motion at all joints. No bony deformities or tenderness. No CVA tenderness. EXTREMITIES: No cyanosis. No clubbing. No edema. No calf tenderness. SKIN: Warm and dry. Normal capillary refill. No rashes. No jaundice. PSYCHIATRIC: Cooperative. Good eye contact. Appropriate mood and affect. Abnormal Lab Results 06/26/19 06/26/19 18:58 18:58 RBC 3.03 L Hgb 9.3 L Hct 29.4 L MCV 97.2 H MCHC 31.6 L Carbon Dioxide 36 H Anion Gap 3 L ALT 9 L Imaging reviewed Chest CT showed mild to moderate central lobar emphysema similar to prior, right sided basilar scarring, parenchymal scarring, tracheostomy site is seen. Upper right lobe pulmonary nodule, mild cardiomegaly, very small pericardial fluid similar to prior imaging ASSESSMENT AND PLAN: COPD exacerbation with shortness of breath Admit to MedSurg Prednisone 40 mg daily p.o. Duo nebs every 6 hours supplemental oxygen as needed Pharmacy General Manager on avoidance of tobacco #HIVwell-controlled on Triumeq Send CD4 and viral load ID consult for continuation of Triumeq #Hypothyroidism Send TSH Continue Synthroid 112 mcg p.o. daily #Anemia Continue ferrous sulfate home dose #Hypertension Continue home dose metoprolol succinate, amlodipine, furosemide p.o. #DVT prophylaxis-heparin subcutaneously
[2019-06-27 03:45] VITALS: BMI 37.0
[2019-06-27] MEDS: HEPARIN NA (PORCINE) 5,000 UNITS/ML 1ML VIAL SQ SCH ×3 (06:26→21:22)
[2019-06-27] MEDS: LEVOTHYROXINE NA 112 MCG TABLET (FP) PO SCH (06:26)
[2019-06-27] MEDS: ALBUTEROL SO4 2.5/IPRATROPIUM 0.5 INH SOL 3 ML VIAL.NEB. NEB SCH ×4 (07:45→20:11)
[2019-06-27] MEDS ORDERED: PT OWN MED DRAWER 7, Y5N ONE (09:06)
[2019-06-27] MEDS: predniSONE 20 MG TABLET (UD) PO SCH (09:09)
[2019-06-27] MEDS: AZITHROMYCIN 250 MG TABLET PO SCH (09:09)
[2019-06-27 09:14] LABS: BASO % 0.2 % (0-2.0); HEMATOCRIT 29.4 % (32.4-45.2); HEMOGLOBIN 9.3 GM/dL (10.7-15.3); LYMPH % 7.9 % (8-40); MCH 30.5 pg (25.7-33.7); MCHC 31.8 g/dl (32.0-36.0); MEAN CELL VOLUME 95.9 fl (80-96); MEAN PLT VOLUME 8.4 fl (7.5-11.1); MONO % 0.9 % (3.8-10.2); RBC 3.06 M/mm3 (3.60-5.2); RDW 14.8 % (11.6-15.6); WHITE BLOOD COUNT 7.3 K/mm3 (4.0-10.0)
[2019-06-27 09:54] LABS: ALBUMIN 3.4 g/dl (3.4-5.0); BILIRUBIN,TOTAL 0.3 mg/dL (0.2-1); BLOOD UREA NITROGEN 15.9 mg/dL (7-18); CALCIUM 9.2 mg/dL (8.5-10.1); CREATININE 1.1 mg/dL (0.55-1.3); MAGNESIUM 1.8 mg/dL (1.8-2.4); PHOSPHOROUS 2.4 mg/dL (2.5-4.9); POTASSIUM 4.2 mmol/L (3.5-5.1); TOT PROT 7.7 g/dl (6.4-8.2)
[2019-06-27] MEDS ORDERED: METHADONE HCL PO SCH ×2 (10:00)
[2019-06-27] MEDS ORDERED: BUDESONIDE/FORMETEROL FUMARATE 160/4.5 mcg INHALER IH SCH (10:00)
[2019-06-27] MEDS ORDERED: METHADONE HCL 10 MG TABLET ONE (10:37)
[2019-06-27] MEDS ORDERED: METHADONE HCL 5 MG TABLET ONE (10:38)
[2019-06-27] MEDS ORDERED: METHADONE HCL 40 MG DISPERSABLE TABLET ONE (10:38)
[2019-06-27] MEDS: METHADONE 40 MG, METHADONE 30 MG, METHADONE 5 MG PO SCH (10:39)
[2019-06-27] MEDS: ABACAVIR/DOLUTEGRAVIR/LAMIVUDI (TRIUMEQ) TABLET -NF PO SCH (10:39)
[2019-06-27 11:02] LABS: ANISOCYTOSIS 1+
--- NOTE | 2019-06-27 12:42 | EKG ---
Test Reason : Blood Pressure : / mmHG Vent. Rate : 074 BPM Atrial Rate : 074 BPM P-R Int : 162 ms QRS Dur : 074 ms QT Int : 400 ms P-R-T Axes : 064 002 043 degrees QTc Int : 444 ms POOR DATA QUALITY, INTERPRETATION MAY BE ADVERSELY AFFECTED NORMAL SINUS RHYTHM BIATRIAL ENLARGEMENT NONSPECIFIC T WAVE ABNORMALITY ABNORMAL ECG WHEN COMPARED WITH ECG OF 19-MAR-2019 11:00, PREMATURE VENTRICULAR COMPLEXES ARE NO LONGER PRESENT QT HAS LENGTHENED Confirmed by OUSMANE HALL MD ([id number]) on 06/27/2019 12:41:55 PM Referred By: Confirmed By:OUSMANE HALL MD
--- NOTE | 2019-06-27 14:48 | PN ---
Progress Note (short form) - Note Progress Note: ID consult dictated asked to see for HIV 59 yo female with PMH of laryngeal ca s/p trach, history of well controlled HIV admitted with 2 day history of LUQ discomfort (she felt constipated) and SOB no cough, no fevers had cxray concerning for pneumonia and was referred to ED, chest ct with no acute infiltrate or consolidation +scarring and atelectasis stable HIV- continue triumeq CD4 492 viral load less then 20 COPD exacerbation- improved laryngeal cancer- constipation- prn miralax multiple antibioitic allergies Problem List - Problems (1) HIV (human immunodeficiency virus infection) Code(s): Z21 - ASYMPTOMATIC HUMAN IMMUNODEFICIENCY VIRUS INFECTION STATUS Qualifiers: HIV symptom status: unspecified Qualified Code(s): B20 - Human immunodeficiency virus [HIV] disease (2) COPD exacerbation Code(s): J44.1 - CHRONIC OBSTRUCTIVE PULMONARY DISEASE W (ACUTE) EXACERBATION (3) History of laryngeal cancer Code(s): Z85.21 - PERSONAL HISTORY OF MALIGNANT NEOPLASM OF LARYNX (4) Constipated Code(s): K59.00 - CONSTIPATION, UNSPECIFIED (5) Allergy to multiple antibiotics Code(s): Z88.1 - ALLERGY STATUS TO OTHER ANTIBIOTIC AGENTS STATUS
[2019-06-27] MEDS ORDERED: POLYETHYLENE GLYCOL 3350 119 GM BTL PO PRN (15:42)
--- NOTE | 2019-06-27 16:20 | DS ---
Physical Exam: SUBJECTIVE: Patient seen and examined OBJECTIVE: Vital Signs Period Temp Pulse Resp BP Sys/Brandt Pulse Ox Last 24 Hr 97.9 F-99.2 F 76-101 18-22 121-149/66-85 95-100 PHYSICAL EXAM GENERAL: A&Ox3, NAD. HEAD: NC/AT, no shinto wasting EYES: sclera anicteric, conjunctiva clear. ENT: Ears normal, nares patent, moist mucous membranes. NECK: Trachea midline, full range of motion, supple. Tracheostomy site patent, overlying trach mask ~10L LUNGS: Breath sounds equal, clear to auscultation bilaterally, no wheezes, no crackles, no accessory muscle use. Weak inspir effort HEART: Regular rate and rhythm, S1, S2 without murmur, rub or gallop. Left chest wall at midclavicular line ~T5 w/ reproducible TTP ABDOMEN: Soft, nontender, nondistended, normoactive bowel sounds, no guarding, no rebound, no masses. EXTREMITIES: 2+ pulses, warm, well-perfused, no edema. NEUROLOGICAL: weak voice speech. PSYCH: Normal mood, normal affect. SKIN: Warm, dry, normal turgor, no rashes or lesions noted. LABS Laboratory Results - last 24 hr 06/26/19 06/26/19 06/26/19 18:40 18:58 18:58 WBC 5.7 RBC 3.03 L Hgb 9.3 L Hct 29.4 L MCV 97.2 H MCH 30.7 MCHC 31.6 L RDW 14.7 Plt Count 238 D MPV 9.1 Absolute Neuts (auto) 4.2 Neutrophils % 73.7 Neutrophils % (Manual) Band Neutrophils % Lymphocytes % 18.6 Lymphocytes % (Manual) Monocytes % 5.8 Monocytes % (Manual) Eosinophils % 1.2 Eosinophils % (Manual) Basophils % 0.7 Basophils % (Manual) Myelocytes % (Man) Promyelocytes % (Man) Blast Cells % (Manual) Nucleated RBC % 0 Metamyelocytes Hypochromia Platelet Comment Polychromasia Poikilocytosis Basophilic Stippling Anisocytosis Stomatocytes Retic Count Sodium Potassium Chloride Carbon Dioxide Anion Gap BUN Creatinine Est GFR (CKD-EPI)AfAm Est GFR (CKD-EPI)NonAf POC Glucometer Random Glucose Lactic Acid 1.5 Calcium Phosphorus Magnesium Iron TIBC Iron Saturation Unsaturated IBC Ferritin Total Bilirubin AST ALT Alkaline Phosphatase Creatine Kinase 176 Creatine Kinase Index No Result Required. CK-MB (CK-2) < 1.0 Troponin I < 0.02 Total Protein Albumin TSH Influenza A (Rapid) Influenza B (Rapid) 06/26/19 06/26/19 06/27/19 18:58 19:38 06:24 WBC RBC Hgb Hct MCV MCH MCHC RDW Plt Count MPV Absolute Neuts (auto) Neutrophils % Neutrophils % (Manual) Band Neutrophils % Lymphocytes % Lymphocytes % (Manual) Monocytes % Monocytes % (Manual) Eosinophils % Eosinophils % (Manual) Basophils % Basophils % (Manual) Myelocytes % (Man) Promyelocytes % (Man) Blast Cells % (Manual) Nucleated RBC % Metamyelocytes Hypochromia Platelet Comment Polychromasia Poikilocytosis Basophilic Stippling Anisocytosis Stomatocytes Retic Count Sodium 140 Potassium 3.7 Chloride 101 Carbon Dioxide 36 H Anion Gap 3 L BUN 11.2 Creatinine 1.1 Est GFR (CKD-EPI)AfAm 64.09 Est GFR (CKD-EPI)NonAf 55.30 POC Glucometer 176 Random Glucose 97 Lactic Acid Calcium 8.9 Phosphorus Magnesium Iron TIBC Iron Saturation Unsaturated IBC Ferritin Total Bilirubin 0.2 AST 20 ALT 9 L Alkaline Phosphatase 109 Creatine Kinase Cancelled Creatine Kinase Index CK-MB (CK-2) Troponin I Cancelled Total Protein 7.8 Albumin 3.6 TSH Influenza A (Rapid) Negative Influenza B (Rapid) Negative 06/27/19 06/27/19 06/27/19 08:20 08:20 08:20 WBC 7.3 RBC 3.06 L Hgb 9.3 L Hct 29.4 L MCV 95.9 MCH 30.5 MCHC 31.8 L RDW 14.8 Plt Count Answering Service Operator MPV 8.4 Absolute Neuts (auto) 6.7 Neutrophils % 91.0 H D Neutrophils % (Manual) 82.0 Band Neutrophils % 0.0 Lymphocytes % 7.9 L D Lymphocytes % (Manual) 13.0 D Monocytes % 0.9 L D Monocytes % (Manual) 1 L D Eosinophils % 0.0 D Eosinophils % (Manual) 0.0 D Basophils % 0.2 Basophils % (Manual) 0.0 Myelocytes % (Man) 0 Promyelocytes % (Man) 0 Blast Cells % (Manual) 0 Nucleated RBC % 0 Metamyelocytes 0 Hypochromia 0 Platelet Comment Present Polychromasia 1+ Poikilocytosis 0 Basophilic Stippling 1+ Anisocytosis 1+ Stomatocytes 1+ Retic Count 1.37 D Sodium 139 Potassium 4.2 Chloride 101 Carbon Dioxide 32 Anion Gap 6 L BUN 15.9 Creatinine 1.1 Est GFR (CKD-EPI)AfAm 64.09 Est GFR (CKD-EPI)NonAf 55.30 POC Glucometer Random Glucose 153 H Lactic Acid Calcium 9.2 Phosphorus 2.4 L Magnesium 1.8 Iron TIBC Iron Saturation Unsaturated IBC Ferritin Total Bilirubin 0.3 AST 19 ALT 10 L Alkaline Phosphatase 100 Creatine Kinase Creatine Kinase Index CK-MB (CK-2) Troponin I Total Protein 7.7 Albumin 3.4 TSH Influenza A (Rapid) Influenza B (Rapid) 06/27/19 06/27/19 08:20 11:40 WBC RBC Hgb Hct MCV MCH MCHC RDW Plt Count MPV Absolute Neuts (auto) Neutrophils % Neutrophils % (Manual) Band Neutrophils % Lymphocytes % Lymphocytes % (Manual) Monocytes % Monocytes % (Manual) Eosinophils % Eosinophils % (Manual) Basophils % Basophils % (Manual) Myelocytes % (Man) Promyelocytes % (Man) Blast Cells % (Manual) Nucleated RBC % Metamyelocytes Hypochromia Platelet Comment Polychromasia Poikilocytosis Basophilic Stippling Anisocytosis Stomatocytes Retic Count Sodium Potassium Chloride Carbon Dioxide Anion Gap BUN Creatinine Est GFR (CKD-EPI)AfAm Est GFR (CKD-EPI)NonAf POC Glucometer 195 Random Glucose Lactic Acid Calcium Phosphorus Magnesium Iron 47 L TIBC 265 Iron Saturation 17 L Unsaturated IBC 218 Ferritin 45.1 Total Bilirubin AST ALT Alkaline Phosphatase Creatine Kinase Creatine Kinase Index CK-MB (CK-2) Troponin I Total Protein Albumin TSH 0.54 Influenza A (Rapid) Influenza B (Rapid) HOSPITAL COURSE: 59F w/ pmh of HTN, HLD, COPD, emphysema, asthma, laryngeal cancer(s/p chemo/rad 12ys prior, tracheostomy), HIV(last CD4 count 500), hypothyroidism, admitted with dyspnea, left lower chest focal reproducible pain. Recommended for [facility]-ED eval d/t abnormal CXR w/ concern of PNA. CT chest neg for PNA, showing Left basilar atelectasis, incidental CBD dilation(1.3cm) w/ GB wall calcification along fundus. Duplex neg for DVT. Admitted for atelectasis, COPD exacerbation. Given azithromycin PO, prednisone. Worked w/ PT, walking 250ft w/ wide-based gait. Stable for D/C with azithro and prednisone taper. Patient's daughter appealing discharge. Date of Admission:06/26/19 Date of Discharge: 06/27/19 Minutes to complete discharge: 20 Discharge Summary Problems reviewed: Yes Reason For Visit: CHRONIC OBSTRUCTIVE PULMONARY DISEASE Current Active Problems Abdominal pain (Acute) Allergy to multiple antibiotics (Acute) Constipated (Acute) History of laryngeal cancer (Acute) COPD (chronic obstructive pulmonary disease) (Chronic) Cardiomegaly (Chronic) Dyslipidemia (Chronic) HIV (human immunodeficiency virus infection) (Chronic) Hypertension (Chronic) Tracheostomy in place (Chronic) Condition: Stable - Instructions Diet, Activity, Other Instructions: You were evaluated in the hospital with trouble breathing, and increased fatigue with chest xray imaging showing a possible pneumonia. CT chest imaging did not show a pneumonia, but did show atelectasis which is suggestive of weak inspiration. You were given oral antibiotics, oral steroids. Your symptoms improved. Medications: - NEW medications: --azithromycin 250mg, daily for 3 more days starting tomorrow (06/28/19) --prednisone taper: --- prednisone 40mg daily for 2 days starting tomorrow (06/28/19 - ), then --- prednisone 30mg daily for 2 days (06/30/19 - 07/01/19), then --- prednisone 20mg daily for 2 days (07/02/19 - 07/03/19), then --- prednisone 10mg daily for 2 days (07/04/19 - 07/05/19), then - resume other previously prescribed home medications Follow ups; Please follow up with your primary care physician within 1 week to discuss your recent hospitalization Please seek immediate medical evaluation, or return to the Emergency Department if you experience: - trouble breathing, cough with brown or bloody mucus, chest tightness, chest pain - confusion - trouble swallowing Disposition: HOME - Home Medications Comprehensive Discharge Medication List: Ambulatory Orders Fluticasone Prop 0.05% Nasal [Flonase -] 1 spray NS BID #1 spray.pump 11/22/18 Acetaminophen [Tylenol .Regular Strength -] 650 mg PO Q6H PRN #100 tablet Ferrous Sulfate 325 mg PO DAILY #30 tablet 04/29/19 Abacavir/Dolutegravir/Lamivudi [Triumeq 600-50-300 mg Tablet] 1 each PO DAILY # 30 tablet 05/29/19 Albuterol 2.5/Ipratropium 0.5 [Duoneb -] 1 amp NEB Q6H PRN #30 amp 05/29/19 Amlodipine Besylate [Norvasc -] 5 mg PO DAILY #30 tablet 05/29/19 Folic Acid - 1 mg PO DAILY #30 tablet 05/29/19 Furosemide [Lasix -] 20 mg PO DAILY #30 tablet 05/29/19 Levothyroxine [Synthroid -] 112 mcg PO DAILY #30 tablet 05/29/19 Loratadine 10 mg PO DAILY PRN #30 tablet 05/29/19 Metoprolol Succinate [Toprol Xl] 25 mg PO DAILY #30 tab.er.24h 05/29/19 Montelukast Na [Singulair -] 10 mg PO HS #30 tablet 05/29/19 Multivitamin,Ther and Minerals [Vitamin and Minerals] 1 each PO DAILY #30 tablet 05/29/19 Pravastatin Sodium 10 mg PO HS #30 tablet 05/29/19 Clotrimazole/Betamethasone Dip [Clotrimazole-Betamethasone Lot] 1 applic TP BID #30 g 06/10/19 Carboxymethylcellulose Sodium [Thera Tears] 1 - 2 drop OD PRN #30 ml 06/18/19 Erythromycin 0.5% Eye Ointment [Erythromycin 0.5% Eye Ointment -] 1 cm OD Q6H # 1 tube 06/18/19 Docusate Liquid [Colace Liquid -] 50 mg PO TID PRN #225 ml 06/26/19 Mirtazapine [Remeron -] 30 mg PO DAILY #30 tablet 06/26/19 Quetiapine Fumarate [Seroquel -] 50 mg PO HS #30 tablet 06/26/19 Sertraline HCl [Zoloft -] 50 mg PO AM #30 tablet 06/26/19 traZODone HCL [Desyrel -] 100 mg PO HS #30 tablet 06/26/19 Azithromycin [Zithromax 250mg Tablets -] 250 mg PO DAILY #3 tablet 06/27/19 Methadone HCl 78 mg PO DAILY 06/27/19 Prednisone See Taper PO DAILY #20 tablet 06/27/19 This patient is new to me today: No Emergency Visit: No Critical Care patient: No - Discharge Referral Referred to [facility] No ATTENDING PHYSICIAN STATEMENT I saw and evaluated the patient. I reviewed the resident's note and discussed the case with the resident. I agree with the resident's findings and plan as documented. SUBJECTIVE: OBJECTIVE: ASSESSMENT AND PLAN:
--- NOTE | 2019-06-27 16:59 | PN ---
Teaching Attending Note Name of Resident: Luis Fontana ATTENDING PHYSICIAN STATEMENT I saw and evaluated the patient. I reviewed the resident's note and discussed the case with the resident. I agree with the resident's findings and plan as documented with exceptions below. SUBJECTIVE: Patient seen and examined, breathing improved, left Upper abdo/Lower chest wall pain, constipation, occasional cough. Ambulating in the room. OBJECTIVE: Vital Signs Period Temp Pulse Resp BP Sys/Brandt Pulse Ox Last 24 Hr 97.9 F-99.2 F 76-101 18-22 118-149/66-85 95-100 Intake & Output 06/24/19 06/25/19 06/26/19 06/27/19 23:59 23:59 23:59 23:59 Weight 200 lb 196 lb General: ambulating in room no acute distress Chest: good air entry, occasional wheezing CVS:S1S2 regular Abdomen: soft, obese, NT Extremities: no edema Home Medications Medication Instructions Recorded Fluticasone Prop 0.05% Nasal 1 spray NS BID #1 spray.pump 11/22/18 [Flonase -] Acetaminophen [Tylenol .Regular 650 mg PO Q6H PRN #100 tablet 04/29/19 Strength -] Ferrous Sulfate 325 mg PO DAILY #30 tablet 04/29/19 Abacavir/Dolutegravir/Lamivudi 1 each PO DAILY #30 tablet 05/29/19 [Triumeq 600-50-300 mg Tablet] Albuterol 2.5/Ipratropium 0.5 1 amp NEB Q6H PRN #30 amp 05/29/19 [Duoneb -] Amlodipine Besylate [Norvasc -] 5 mg PO DAILY #30 tablet 05/29/19 Folic Acid - 1 mg PO DAILY #30 tablet 05/29/19 Furosemide [Lasix -] 20 mg PO DAILY #30 tablet 05/29/19 Levothyroxine [Synthroid -] 112 mcg PO DAILY #30 tablet 05/29/19 Loratadine 10 mg PO DAILY PRN #30 tablet 05/29/19 Metoprolol Succinate [Toprol Xl] 25 mg PO DAILY #30 tab.er.24h 05/29/19 Montelukast Na [Singulair -] 10 mg PO HS #30 tablet 05/29/19 Multivitamin,Ther and Minerals 1 each PO DAILY #30 tablet 05/29/19 [Vitamin and Minerals] Pravastatin Sodium 10 mg PO HS #30 tablet 05/29/19 Clotrimazole/Betamethasone Dip 1 applic TP BID #30 g 06/10/19 [Clotrimazole-Betamethasone Lot] Carboxymethylcellulose Sodium 1 - 2 drop OD PRN #30 ml 06/18/19 [Thera Tears] Erythromycin 0.5% Eye Ointment 1 cm OD Q6H #1 tube 06/18/19 [Erythromycin 0.5% Eye Ointment -] Docusate Liquid [Colace Liquid -] 50 mg PO TID PRN #225 ml 06/26/19 Mirtazapine [Remeron -] 30 mg PO DAILY #30 tablet 06/26/19 Quetiapine Fumarate [Seroquel -] 50 mg PO HS #30 tablet 06/26/19 Sertraline HCl [Zoloft -] 50 mg PO AM #30 tablet 06/26/19 traZODone HCL [Desyrel -] 100 mg PO HS #30 tablet 06/26/19 Azithromycin [Zithromax 250mg 250 mg PO DAILY #3 tablet 06/27/19 Tablets -] Methadone HCl 78 mg PO DAILY 06/27/19 Prednisone See Taper PO DAILY #20 tablet 06/27/19 Active Medications Abacavir/Dolutegravir/Lamivudine (Triumeq (Non-Formulary)) 1 each PO DAILY [facility] Last Admin: 06/27/19 10:39 Dose: 1 each Albuterol Sulfate (Ventolin 0.083% Nebulizer Soln -) 1 amp NEB Q6H PRN PRN Reason: SHORT OF BREATH/WHEEZING Albuterol/Ipratropium (Duoneb -) 1 amp NEB RQID [facility] Last Admin: 06/27/19 15:45 Dose: 1 amp Azithromycin (Zithromax -) 250 mg PO DAILY [facility] Last Admin: 06/27/19 09:09 Dose: 250 mg Heparin Sodium (Porcine) (Heparin -) 5,000 unit SQ TID [facility] Last Admin: 06/27/19 13:30 Dose: 5,000 unit Levothyroxine Sodium (Synthroid -) 112 mcg PO DAILY@0700 [facility] Last Admin: 06/27/19 06:26 Dose: 112 mcg Methadone HCl 40 mg/ Methadone (HCl 30 mg/ Methadone HCl 5 mg) 75 mg PO DAILY@ 0600 [facility] Last Admin: 06/27/19 10:39 Dose: 75 mg Polyethylene Glycol (Miralax (For Daily Use) -) 17 gm PO DAILY PRN PRN Reason: CONSTIPATION Prednisone (Deltasone -) 40 mg PO DAILY [facility] Last Admin: 06/27/19 09:09 Dose: 40 mg Laboratory Results - last 24 hr 06/26/19 06/26/19 06/26/19 18:40 18:58 18:58 WBC 5.7 RBC 3.03 L Hgb 9.3 L Hct 29.4 L MCV 97.2 H MCH 30.7 MCHC 31.6 L RDW 14.7 Plt Count 238 D MPV 9.1 Absolute Neuts (auto) 4.2 Neutrophils % 73.7 Neutrophils % (Manual) Band Neutrophils % Lymphocytes % 18.6 Lymphocytes % (Manual) Monocytes % 5.8 Monocytes % (Manual) Eosinophils % 1.2 Eosinophils % (Manual) Basophils % 0.7 Basophils % (Manual) Myelocytes % (Man) Promyelocytes % (Man) Blast Cells % (Manual) Nucleated RBC % 0 Metamyelocytes Hypochromia Platelet Comment Polychromasia Poikilocytosis Basophilic Stippling Anisocytosis Stomatocytes Retic Count Sodium Potassium Chloride Carbon Dioxide Anion Gap BUN Creatinine Est GFR (CKD-EPI)AfAm Est GFR (CKD-EPI)NonAf POC Glucometer Random Glucose Lactic Acid 1.5 Calcium Phosphorus Magnesium Iron TIBC Iron Saturation Unsaturated IBC Ferritin Total Bilirubin AST ALT Alkaline Phosphatase Creatine Kinase 176 Creatine Kinase Index No Result Required. CK-MB (CK-2) < 1.0 Troponin I < 0.02 Total Protein Albumin TSH Influenza A (Rapid) Influenza B (Rapid) 06/26/19 06/26/19 06/27/19 18:58 19:38 06:24 WBC RBC Hgb Hct MCV MCH MCHC RDW Plt Count MPV Absolute Neuts (auto) Neutrophils % Neutrophils % (Manual) Band Neutrophils % Lymphocytes % Lymphocytes % (Manual) Monocytes % Monocytes % (Manual) Eosinophils % Eosinophils % (Manual) Basophils % Basophils % (Manual) Myelocytes % (Man) Promyelocytes % (Man) Blast Cells % (Manual) Nucleated RBC % Metamyelocytes Hypochromia Platelet Comment Polychromasia Poikilocytosis Basophilic Stippling Anisocytosis Stomatocytes Retic Count Sodium 140 Potassium 3.7 Chloride 101 Carbon Dioxide 36 H Anion Gap 3 L BUN 11.2 Creatinine 1.1 Est GFR (CKD-EPI)AfAm 64.09 Est GFR (CKD-EPI)NonAf 55.30 POC Glucometer 176 Random Glucose 97 Lactic Acid Calcium 8.9 Phosphorus Magnesium Iron TIBC Iron Saturation Unsaturated IBC Ferritin Total Bilirubin 0.2 AST 20 ALT 9 L Alkaline Phosphatase 109 Creatine Kinase Cancelled Creatine Kinase Index CK-MB (CK-2) Troponin I Cancelled Total Protein 7.8 Albumin 3.6 TSH Influenza A (Rapid) Negative Influenza B (Rapid) Negative 06/27/19 06/27/19 06/27/19 08:20 08:20 08:20 WBC 7.3 RBC 3.06 L Hgb 9.3 L Hct 29.4 L MCV 95.9 MCH 30.5 MCHC 31.8 L RDW 14.8 Plt Count Fisher[employer] Chief MPV 8.4 Absolute Neuts (auto) 6.7 Neutrophils % 91.0 H D Neutrophils % (Manual) 82.0 Band Neutrophils % 0.0 Lymphocytes % 7.9 L D Lymphocytes % (Manual) 13.0 D Monocytes % 0.9 L D Monocytes % (Manual) 1 L D Eosinophils % 0.0 D Eosinophils % (Manual) 0.0 D Basophils % 0.2 Basophils % (Manual) 0.0 Myelocytes % (Man) 0 Promyelocytes % (Man) 0 Blast Cells % (Manual) 0 Nucleated RBC % 0 Metamyelocytes 0 Hypochromia 0 Platelet Comment Present Polychromasia 1+ Poikilocytosis 0 Basophilic Stippling 1+ Anisocytosis 1+ Stomatocytes 1+ Retic Count 1.37 D Sodium 139 Potassium 4.2 Chloride 101 Carbon Dioxide 32 Anion Gap 6 L BUN 15.9 Creatinine 1.1 Est GFR (CKD-EPI)AfAm 64.09 Est GFR (CKD-EPI)NonAf 55.30 POC Glucometer Random Glucose 153 H Lactic Acid Calcium 9.2 Phosphorus 2.4 L Magnesium 1.8 Iron TIBC Iron Saturation Unsaturated IBC Ferritin Total Bilirubin 0.3 AST 19 ALT 10 L Alkaline Phosphatase 100 Creatine Kinase Creatine Kinase Index CK-MB (CK-2) Troponin I Total Protein 7.7 Albumin 3.4 TSH Influenza A (Rapid) Influenza B (Rapid) 06/27/19 06/27/19 06/27/19 08:20 11:40 16:38 WBC RBC Hgb Hct MCV MCH MCHC RDW Plt Count MPV Absolute Neuts (auto) Neutrophils % Neutrophils % (Manual) Band Neutrophils % Lymphocytes % Lymphocytes % (Manual) Monocytes % Monocytes % (Manual) Eosinophils % Eosinophils % (Manual) Basophils % Basophils % (Manual) Myelocytes % (Man) Promyelocytes % (Man) Blast Cells % (Manual) Nucleated RBC % Metamyelocytes Hypochromia Platelet Comment Polychromasia Poikilocytosis Basophilic Stippling Anisocytosis Stomatocytes Retic Count Sodium Potassium Chloride Carbon Dioxide Anion Gap BUN Creatinine Est GFR (CKD-EPI)AfAm Est GFR (CKD-EPI)NonAf POC Glucometer 195 144 Random Glucose Lactic Acid Calcium Phosphorus Magnesium Iron 47 L TIBC 265 Iron Saturation 17 L Unsaturated IBC 218 Ferritin 45.1 Total Bilirubin AST ALT Alkaline Phosphatase Creatine Kinase Creatine Kinase Index CK-MB (CK-2) Troponin I Total Protein Albumin TSH 0.54 Influenza A (Rapid) Influenza B (Rapid) ASSESSMENT AND PLAN: 59 yof with PMHx of COPD, emphysema, asthma, laryngeal cancer (s/p tracheostomy) , HIV (last CD4 count 500), hypothyroidism, HTN and HLD admitted with dyspnea and left lower chest pain, advised to come to ED for abnormal CXR, CT chest here neg for concerns -Mild acute bronchitis -Left basilar atelectasis/Scarring -Lower lower chest wall pain, suspect musculoskeletal vs constipation related ( CT chest with no concerns) -COPD/emphysema/Asthma -Laryngeal Ca (s/p tracheostomy) -HIV on HAART -HTN -HLD Plan: ID input noted no clinical evidence on PNA on PO Azithromycin, and po prednisone Azithromycin for additional 3 days, PO prednisone taper at home oxygen needs Ambulating well inhouse dc home today with outpatient PCP/pulmonary follow up Discussed with patient, agreable with plan.
--- NOTE | 2019-06-27 19:36 | CONS ---
DATE OF CONSULTATION: DATE OF DICTATION: 06/27/2019 INFECTIOUS DISEASE CONSULTATION REQUESTING PHYSICIAN: Hospitalist Service CONSULTING PHYSICIAN: Yordy Sharma M.D. HISTORY OF PRESENT ILLNESS: This is a 59-year-old woman who is followed at the [facility]. She has a history of laryngeal cancer status post tracheostomy, and she has been decannulated. She has history of HIV with very stable counts, last in May, undetectable viral load with a CD4 of 492. I am asked to see her for management of her HIV. She presents to the emergency room with complaints of shortness of breath and left lower chest discomfort. She has as well complaints of constipation. She had an x-ray done that was concerning for left lower lobe infiltrate. She had a CAT scan done in the emergency room that was consistent with atelectasis and fibrotic changes. She was started on prednisone and Zithromax with improvement of her symptoms. She still complains of constipation and is requesting medications. PAST MEDICAL HISTORY: Notable for COPD, asthma. She has a history of laryngeal cancer, HIV, hypertension, hyperlipidemia. SURGICAL HISTORY: Notable for laryngectomy and tracheostomy. She has subsequently been decannulated. She has had several episodes of pneumonia in the past. She has a history as well of depression, anxiety. SOCIAL HISTORY: She is a former smoker. She quit 15 years ago. No history of substance use. She lives with her daughter. REVIEW OF SYSTEMS: As per HPI. ALLERGIES: Notable for remote history of allergy to PENICILLIN as a baby. She has tolerated ceftriaxone and Ceftin in the past. History of LEVAQUIN allergy manifested by rash. She is allergic to LATEX. MEDICATION: Her medications as an outpatient include , trazodone, Zoloft, Seroquel, pravastatin, Singulair, Remeron, Toprol, methadone, Synthroid, Lasix, amlodipine. PHYSICAL EXAMINATION: General: She is awake and alert, feeling better. Vital Signs: Temperature 98.2, pulse 76, blood pressure 121/75, respiratory rate 18. HEENT: Normocephalic. Eyes are anicteric. Neck: Supple. She has a trach collar in place. She uses a trach collar at home. Lungs: Scattered rhonchi. Heart: Regular rate and rhythm. Abdomen: Obese, nontender. I cannot appreciate any organomegaly. Extremities: Without edema. LABORATORY: Notable for a white count of 7.3, hemoglobin 9.3, platelets 238. Her BUN and creatinine are 15 and 1.1. Urinalysis is negative, and her influenza screen is negative. CAT scan findings are as previously stated. IMPRESSION: 1. In summary, this is a 59-year-old woman admitted with stable HIV. I would continue her . She is not at risk for opportunistic infections. 2. Chronic obstructive pulmonary disease exacerbation, CAT scan findings do not indicate any acute infiltrate. She has been started on Zithromax and prednisone. Further management per the Hospitalist Service. 3. Laryngeal cancer at baseline. 4. Constipation. Would treat her with p.r.n. Miralax. 5. Multiple ANTIBIOTIC allergies as noted. YORDY SHARMA M.D. [id number]
[2019-06-28] MEDS ORDERED: METHADONE HCL 10 MG TABLET ONE (05:19)
[2019-06-28] MEDS ORDERED: METHADONE HCL 5 MG TABLET ONE (05:19)
[2019-06-28] MEDS ORDERED: METHADONE HCL 40 MG DISPERSABLE TABLET ONE (05:20)
[2019-06-28] MEDS: METHADONE 40 MG, METHADONE 30 MG, METHADONE 5 MG PO SCH (06:03)
[2019-06-28] MEDS: LEVOTHYROXINE NA 112 MCG TABLET (FP) PO SCH (06:03)
[2019-06-28] MEDS: HEPARIN NA (PORCINE) 5,000 UNITS/ML 1ML VIAL SQ SCH (06:03)
[2019-06-28] MEDS: ALBUTEROL SO4 2.5/IPRATROPIUM 0.5 INH SOL 3 ML VIAL.NEB. NEB SCH ×2 (07:25→11:50)
[2019-06-28] MEDS ORDERED: PT OWN MED DRAWER 7, Y5N ONE (09:54)
[2019-06-28] MEDS: AZITHROMYCIN 250 MG TABLET PO SCH (09:57)
[2019-06-28] MEDS: predniSONE 20 MG TABLET (UD) PO SCH (09:57)
[2019-06-28] MEDS: ABACAVIR/DOLUTEGRAVIR/LAMIVUDI (TRIUMEQ) TABLET -NF PO SCH (10:00)
--- NOTE | 2019-06-28 11:42 | PN ---
Teaching Attending Note Name of Resident: Katalina Lopez ATTENDING PHYSICIAN STATEMENT I saw and evaluated the patient. I reviewed the resident's note and discussed the case with the resident. I agree with the resident's findings and plan as documented with exceptions below. SUBJECTIVE: Patient seen and examined, no complaints, pain better, breathing improved, ambulating inhouse. OBJECTIVE: Vital Signs Period Temp Pulse Resp BP Sys/Brandt Pulse Ox Last 24 Hr 98.1 F-98.3 F 69-84 18-20 118-138/75-82 100 Intake & Output 06/25/19 06/26/19 06/27/19 06/28/19 23:59 23:59 23:59 23:59 Intake Total 400 120 Balance 400 120 Weight 200 lb 196 lb General: ambulating in hallway, no acute distress Chest: good air entry bilaterally, no rales or wheezing Abdomen:Soft, obese, non tender today Extremities: no edema HEENT: trach in place Home Medications Medication Instructions Recorded Fluticasone Prop 0.05% Nasal 1 spray NS BID #1 spray.pump 11/22/18 [Flonase -] Acetaminophen [Tylenol .Regular 650 mg PO Q6H PRN #100 tablet 04/29/19 Strength -] Ferrous Sulfate 325 mg PO DAILY #30 tablet 04/29/19 Abacavir/Dolutegravir/Lamivudi 1 each PO DAILY #30 tablet 05/29/19 [Triumeq 600-50-300 mg Tablet] Albuterol 2.5/Ipratropium 0.5 1 amp NEB Q6H PRN #30 amp 05/29/19 [Duoneb -] Amlodipine Besylate [Norvasc -] 5 mg PO DAILY #30 tablet 05/29/19 Folic Acid - 1 mg PO DAILY #30 tablet 05/29/19 Furosemide [Lasix -] 20 mg PO DAILY #30 tablet 05/29/19 Levothyroxine [Synthroid -] 112 mcg PO DAILY #30 tablet 05/29/19 Loratadine 10 mg PO DAILY PRN #30 tablet 05/29/19 Metoprolol Succinate [Toprol Xl] 25 mg PO DAILY #30 tab.er.24h 05/29/19 Montelukast Na [Singulair -] 10 mg PO HS #30 tablet 05/29/19 Pravastatin Sodium 10 mg PO HS #30 tablet 05/29/19 Clotrimazole/Betamethasone Dip 1 applic TP BID #30 g 06/10/19 [Clotrimazole-Betamethasone Lot] Carboxymethylcellulose Sodium 1 - 2 drop OD PRN #30 ml 06/18/19 [Thera Tears] Erythromycin 0.5% Eye Ointment 1 cm OD Q6H #1 tube 06/18/19 [Erythromycin 0.5% Eye Ointment -] Docusate Liquid [Colace Liquid -] 50 mg PO TID PRN #225 ml 06/26/19 Mirtazapine [Remeron -] 30 mg PO DAILY #30 tablet 06/26/19 Quetiapine Fumarate [Seroquel -] 50 mg PO HS #30 tablet 06/26/19 Sertraline HCl [Zoloft -] 50 mg PO AM #30 tablet 06/26/19 traZODone HCL [Desyrel -] 100 mg PO HS #30 tablet 06/26/19 Methadone HCl 78 mg PO DAILY 06/27/19 Prednisone See Taper PO DAILY #20 tablet 06/27/19 Azithromycin 250 mg PO DAILY #2 tablet 06/28/19 Active Medications Abacavir/Dolutegravir/Lamivudine (Triumeq (Non-Formulary)) 1 each PO DAILY [facility] Last Admin: 06/28/19 10:00 Dose: 1 each Albuterol Sulfate (Ventolin 0.083% Nebulizer Soln -) 1 amp NEB Q6H PRN PRN Reason: SHORT OF BREATH/WHEEZING Albuterol/Ipratropium (Duoneb -) 1 amp NEB RQID [facility] Last Admin: 06/28/19 07:25 Dose: 1 amp Azithromycin (Zithromax -) 250 mg PO DAILY [facility] Last Admin: 06/28/19 09:57 Dose: 250 mg Heparin Sodium (Porcine) (Heparin -) 5,000 unit SQ TID [facility] Last Admin: 06/28/19 06:03 Dose: 5,000 unit Levothyroxine Sodium (Synthroid -) 112 mcg PO DAILY@0700 [facility] Last Admin: 06/28/19 06:03 Dose: 112 mcg Methadone HCl 40 mg/ Methadone (HCl 30 mg/ Methadone HCl 5 mg) 75 mg PO DAILY@ 0600 [facility] Last Admin: 06/28/19 06:03 Dose: 75 mg Polyethylene Glycol (Miralax (For Daily Use) -) 17 gm PO DAILY PRN PRN Reason: CONSTIPATION Prednisone (Deltasone -) 40 mg PO DAILY [facility] Last Admin: 06/28/19 09:57 Dose: 40 mg Laboratory Results - last 24 hr 06/27/19 06/27/19 06/27/19 11:40 16:38 21:23 POC Glucometer 195 144 105 06/28/19 06:18 POC Glucometer 97 Microbiology 06/26/19 19:10 Blood - Peripheral Venous Blood Culture - Preliminary NO GROWTH OBTAINED AFTER 24 HOURS, INCUBATION TO CONTINUE FOR 4 DAYS. 06/26/19 18:40 Blood - Peripheral Venous Blood Culture - Preliminary NO GROWTH OBTAINED AFTER 24 HOURS, INCUBATION TO CONTINUE FOR 4 DAYS. ASSESSMENT AND PLAN: 59 yof with PMHx of COPD, emphysema, asthma, laryngeal cancer (s/p tracheostomy) , HIV (last CD4 count 500), hypothyroidism, HTN and HLD admitted with dyspnea and left lower chest pain, advised to come to ED for abnormal CXR, CT chest here neg for concerns -Mild acute bronchitis -Left basilar atelectasis/Scarring -Lower lower chest wall pain, suspect musculoskeletal vs constipation related ( CT chest with no concerns) -COPD/emphysema/Asthma -Laryngeal Ca (s/p tracheostomy) -HIV on HAART -HTN -HLD Plan: ID input noted no clinical evidence on PNA on PO Azithromycin, and po prednisone Azithromycin for additional 2 days, PO prednisone taper at home oxygen needs Ambulating well inhouse dc order placed on 06/27. Patient/Family declined to leave no events overnight. Plan for home dc.
[2019-06-28 13:03] VITALS: BP 120/70; PULSE 82; TEMP 97.8
== END 2019-06-28 13:29 | disposition home or self-care (01) | DRG 191 ==
LOC: JER 18:05 → JERBED 22:07 → J8W 06-27 03:20
PROVIDERS: ADMIT Internal Medicine; ATTEND Hospitalist
DX: J43.2 Centrilobular emphysema (principal); J98.11 Atelectasis; J44.1 Chronic obstructive pulmonary disease with (acute) exacerbation; J20.9 Acute bronchitis, unspecified; J45.909 Unspecified asthma, uncomplicated; Z21 Asymptomatic human immunodeficiency virus [HIV] infection status; I10 Essential (primary) hypertension; E78.5 Hyperlipidemia, unspecified; E03.9 Hypothyroidism, unspecified; K59.00 Constipation, unspecified; Z93.0 Tracheostomy status; I51.7 Cardiomegaly; D64.9 Anemia, unspecified
CPT/HCPCS: 36415; 71250-TC; 80053; 82550; 82553; 82728; 82962; 83540; 83550; 83605; 83735; 84100; 84443; 84484; 85025; 85044; 86359; 86360; 87040; 87070; 87804; 93005; 93010; 93970-TC; 94640; 97116-GP; 97161-GP; 99285-25; J1644

== ENCOUNTER 2019-07-20 19:06 | Emergency (ER) | payer OTHER ==
[2019-07-20 19:27] VITALS: TEMP 98; BMI 36.1
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
[2019-07-20] MEDS ORDERED: SILVER SULFADIAZINE 1% TOP CREAM 50 GM JAR TP ONE ×2 (20:27→20:44)
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
[2019-07-20 21:16] VITALS: BP 131/94; PULSE 84
== END 2019-07-20 22:09 | disposition home or self-care (01) ==
LOC: JER 19:06
PROC: 2W2NX4Z Dressing of Right Upper Leg using Bandage (ICD-10-PCS; principal; 2019-07-20)
DX: T24.111A Burn of first degree of right thigh, initial encounter (principal); Z87.891 Personal history of nicotine dependence; I10 Essential (primary) hypertension; E78.00 Pure hypercholesterolemia, unspecified; Z93.0 Tracheostomy status; Z91.040 Latex allergy status; Z88.8 Allergy status to other drugs, medicaments and biological substances; Z88.0 Allergy status to penicillin; X10.0XXA Contact with hot drinks, initial encounter; Y93.89 Activity, other specified; Y92.009 Unspecified place in unspecified non-institutional (private) residence as the place of occurrence of the external cause; Z21 Asymptomatic human immunodeficiency virus [HIV] infection status; J44.9 Chronic obstructive pulmonary disease, unspecified; Z85.21 Personal history of malignant neoplasm of larynx
CPT/HCPCS: 99282-25

== ENCOUNTER 2019-09-19 15:04 | Emergency (ER) | payer OTHER ==
--- NOTE | 2019-09-19 15:23 | PDOC ---
Rapid Medical Evaluation Chief Complaint: Respiratory Time Seen by Provider: 09/19/19 15:17 Medical Evaluation: Allergies Allergy/AdvReac Type Severity Reaction Status Date / Time latex Allergy Verified 07/20/19 19:23 levofloxacin [From Levaquin] Allergy Verified 07/20/19 19:23 Penicillins Allergy Verified 07/20/19 19:23 09/19/19 15:19 I have performed a brief in-person evaluation of this patient. The patient presents with a chief complaint of: congestion / cough/ sent from D (Adam) for eval Pertinent physical exam findings: + cough with trach x 13 years I have ordered the following: CXR, CBC, CMP, BC x 2/ The patient will proceed to the ED for further evaluation. 09/19/19 15:21 09/19/19 15:23 Discharge Disposition - Diagnosis Cough - Referrals - Patient Instructions - Post Discharge Activity
[2019-09-19 15:24] VITALS: BMI 39.4
--- NOTE | 2019-09-19 16:02 | PDOC ---
History of Present Illness - General Chief Complaint: Respiratory Stated Complaint: COPD Time Seen by Provider: 09/19/19 15:17 History Source: Patient Exam Limitations: No Limitations - History of Present Illness Initial Comments: 09/19/19 16:02 59yF w PMHx HIV (reports compliance with meds), asthma/COPD, HTN, HLD, laryngeal CA s/p trach (on 10L NC) presenting w 4d nasal congestion, green productive cough, seen by PCP Rogelio, given 1 nebulizer, sent for further eval. Was in close contact w granddaughter who was diagnosed w flu. Denies fever /chills, nausea/vomiting, chest pain, SOB. Past History - Past Medical History Allergies/Adverse Reactions: Allergies Allergy/AdvReac Type Severity Reaction Status Date / Time latex Allergy Verified 07/20/19 19:23 levofloxacin [From Levaquin] Allergy Verified 07/20/19 19:23 Penicillins Allergy Verified 07/20/19 19:23 Home Medications: Ambulatory Orders Fluticasone Prop 0.05% Nasal [Flonase -] 1 spray NS BID #1 spray.pump 11/22/18 Acetaminophen [Tylenol .Regular Strength -] 650 mg PO Q6H PRN #100 tablet Ferrous Sulfate 325 mg PO DAILY #30 tablet 04/29/19 Erythromycin 0.5% Eye Ointment [Erythromycin 0.5% Eye Ointment -] 1 cm OD Q6H # 1 tube 06/18/19 Docusate Liquid [Colace Liquid -] 50 mg PO TID PRN #225 ml 06/26/19 Methadone HCl 78 mg PO DAILY 06/27/19 Prednisone See Taper PO DAILY #20 tablet 06/27/19 Azithromycin 250 mg PO DAILY #2 tablet 06/28/19 Clotrimazole/Betamethasone Dip [Clotrimazole-Betamethasone Lot] 1 applic TP BID #30 g 07/01/19 Clindamycin [Cleocin -] 300 mg PO Q6HPO 5 Days #20 capsule 07/20/19 Oxycodone HCl/Acetaminophen [Percocet 5/325 -] 1 tab PO Q6H #14 tablet MDD 4 03/01 Gauze Bandage [Kerlix] 1 each TP DAILY #20 bandage 07/24/19 Incontinence Pad,Liner,Disp [Poise Liners] 1 each MC TID #1 box 08/01/19 Abacavir/Dolutegravir/Lamivudi [Triumeq 600-50-300 mg Tablet] 1 each PO DAILY # 30 tablet 09/13/19 Albuterol 2.5/Ipratropium 0.5 [Duoneb -] 1 amp NEB Q6H PRN #30 amp 09/13/19 Amlodipine Besylate [Norvasc -] 5 mg PO DAILY #30 tablet 09/13/19 Carboxymethylcellulose Sodium [Thera Tears] 1 - 2 drop OD PRN #30 ml 09/13/19 Folic Acid - 1 mg PO DAILY #30 tablet 09/13/19 Levothyroxine [Synthroid -] 112 mcg PO DAILY #30 tablet 09/13/19 Loratadine 10 mg PO DAILY PRN #30 tablet 09/13/19 Metoprolol Succinate [Toprol Xl] 25 mg PO DAILY #30 tab.er.24h 09/13/19 Montelukast Na [Singulair -] 10 mg PO HS #30 tablet 09/13/19 Multivitamin,Ther and Minerals [Vitamin and Minerals] 1 each PO DAILY #30 tablet 09/13/19 Pravastatin Sodium 10 mg PO HS #30 tablet 09/13/19 Azithromycin Suspension [Zithromax Suspension -] 200 mg PO DAILY 4 Days #30 ml 09/19/19 Furosemide [Lasix -] 40 mg PO DAILY #30 tablet 09/19/19 Mirtazapine [Remeron -] 30 mg PO DAILY #30 tablet 09/19/19 Quetiapine Fumarate [Seroquel -] 50 mg PO HS #30 tablet 09/19/19 Sertraline HCl [Zoloft -] 50 mg PO AM #30 tablet 09/19/19 traZODone HCL [Desyrel -] 100 mg PO HS #30 tablet 09/19/19 Anemia: No Asthma: Yes Cancer: Yes (larynx) Cardiac Disorders: Yes (enlarged heart) CVA: No COPD: Yes CHF: No DVT: No Dementia: No Diabetes: No GI Disorders: No Disorders: No HTN: Yes Hypercholesterolemia: Yes Liver Disease: No Seizures: No Thyroid Disease: Yes Other medical history: HIV. LARYNGEAL CANCER - Surgical History Abdominal Surgery: No Appendectomy: No Cardiac Surgery: No Cholecystectomy: No Lung Surgery: No Neurologic Surgery: No Orthopedic Surgery: No - Immunization History Immunization Up to Date: Yes - Psycho Social/Smoking Cessation Hx Smoking Status: No Smoking History: Never smoked Have you smoked in the past 12 months: No Number of Cigarettes Smoked Daily: 0 If you are a former smoker, when did you quit?: 2006 Cigars Per Day: 0 Information on smoking cessation initiated: No Hx Alcohol Use: No Drug/Substance Use Hx: No Substance Use Type: None Hx Substance Use Treatment: No Review of Systems - Review of Systems Constitutional: No: Chills, Fever HEENTM: Yes: Nose Congestion. No: Eye Pain Respiratory: Yes: Cough. No: Shortness of Breath Cardiac (ROS): No: Chest Pain, Palpitations ABD/GI: No: Abdominal Distended, Constipated, Diarrhea, Nausea, Vomiting : No: Burning, Dysuria Musculoskeletal: No: Back Pain, Joint Pain Integumentary: No: Bruising, Flushing Neurological: No: Headache, Numbness, Seizure Psychiatric: No: Anxiety, Depression Endocrine: No: Intolerance to Cold, Intolerance to Heat Hematologic/Lymphatic: No: Anemia, Blood Clots *Physical Exam - Vital Signs Last Vital Signs Temp Pulse Resp BP Pulse Ox 99.5 F 94 H 16 116/65 96 09/19/19 15:19 09/19/19 15:19 09/19/19 15:19 09/19/19 15:19 09/19/19 15:19 - Physical Exam General Appearance: Yes: Nourished, Appropriately Dressed. No: Apparent Distress HEENT: positive: EOMI, PATRIC, Nasal Congestion, Hearing Grossly Normal. negative : Scleral Icterus (R), Scleral Icterus (L) Respiratory/Chest: positive: Crackles (LLL). negative: Chest Tender, Respiratory Distress, Accessory Muscle Use, Labored Respiration, Rapid RR, Decreased Breath Sounds, Rhonchi, Stridor, Wheezing Cardiovascular: positive: Regular Rhythm, Regular Rate, S1, S2. negative: Murmur Integumentary: positive: Normal Color. negative: Dry Neurologic: positive: Fully Oriented, Alert, Normal Response, Responsive. negative: Confused, Disoriented ED Treatment Course - LABORATORY CBC & Chemistry Diagram: 09/19/19 15:38 09/19/19 15:38 Medical Decision Making - Medical Decision Making 09/19/19 16:29 CXR - no acute pathology EKG NSR, HR 82, QTc 448, flat T waves WBC 10.3 w left shift, Hgb 8.9 (baseline), K 3.3 --- 59yF w PMHx HIV (reports compliance with meds), asthma/COPD, HTN, HLD, laryngeal CA s/p trach (on 10L NC) presenting w 4d nasal congestion, green productive cough d/t bacterial bronchitis (white count w left shift). Low concern for PNA (no consolidation) vs flu (neg) Given azithromycin, tylenol, KCl Talked to Dr Mercado - agrees w plan, PCP f/u DC home w PCP f/u and azithromycin prescription Discharge - Discharge Information Problems reviewed: Yes Clinical Impression/Diagnosis: Acute bacterial bronchitis Condition: Good Disposition: HOME - Additional Discharge Information Prescriptions: Azithromycin Suspension [Zithromax Suspension -] 200 mg PO DAILY 4 Days #30 ml - Follow up/Referral Referrals: aCro Davenport, [employer] [Primary Care Provider] - - Patient Discharge Instructions Patient Printed Discharge Instructions: DI for Acute Bronchitis Additional Instructions: Take the prescribed azithromycin as directed Call Dr Mercado's office tomorrow to set up a follow up appointment - Post Discharge Activity
[2019-09-19 16:05] LABS: BASO % 0.2 % (0-2.0); EOS % 0.5 % (0-4.5); HEMATOCRIT 28.2 % (32.4-45.2); HEMOGLOBIN 8.9 GM/dL (10.7-15.3); LYMPH % 9.9 % (8-40); MCH 30.2 pg (25.7-33.7); MCHC 31.6 g/dl (32.0-36.0); MEAN CELL VOLUME 95.8 fl (80-96); MEAN PLT VOLUME 8.2 fl (7.5-11.1); NEUT % 83.4 % (42.8-82.8); PLATELET COUNT 180 K/MM3 (134-434); RBC 2.94 M/mm3 (3.60-5.2); RDW 14.1 % (11.6-15.6); WHITE BLOOD COUNT 10.3 K/mm3 (4.0-10.0)
[2019-09-19] MEDS ORDERED: ACETAMINOPHEN 1000 MG/100 ML VIAL (NON FORMULARY) IVPB ONE (16:34)
--- NOTE | 2019-09-19 16:34 | PDOC ---
Attending Attestation - Resident Resident Name: Sukhi Sheikh - ED Attending Attestation I have performed the following: I have examined & evaluated the patient, The case was reviewed & discussed with the resident, I agree w/resident's findings & plan, Exceptions are as noted - HPI HPI: 09/19/19 17:06 59yo female with hx of chronic trach on 10L O2 with cough/congestion x 1 week. Pt states symptoms started on Monday. Pt denies f/c. States family member with flu. Pt bib her daughter from the [facility] for eval of cough. Pt with rhinorrhea, no sore throat. no body aches. No n/v/d. No dysuria. No LE swelling. No increased O2 requirement. - Physicial Exam PE: 09/19/19 17:07 Gen: aaox3, nad heent: Posterior pharynx clear, clear rhinorrhea neck: trach in place, no discharge no drainage around the trach heart: +s1s2 reg lungs: cta b/l abd: soft, nt/nd +bs ext: no c/c/e - Medical Decision Making 09/19/19 17:08 a/p59yo female with cough- productive green sputum -pt with crackles on lung exam -pt with poss pna -also with poss flu -labs, cultures, flu sent -will obtain cxr -will monitor and reassess 09/19/19 18:10 flu neg cxr clear mildly elevated wbc suspect mucopurulent bronchitis call placed to dr. pandey to discuss labs and abx outpt 09/19/19 18:[address] Landaverde who agrees with rossy to home with outpt follow up Heart Score/ECG Review - ECG Intrepretation Comment:: 09/19/19 18:11 sinus at 82, nl axis, nl interval, no acute st/t wave findings
[2019-09-19 16:35] LABS: ALBUMIN 3.4 g/dl (3.4-5.0); BILIRUBIN,TOTAL 0.2 mg/dL (0.2-1); BLOOD UREA NITROGEN 9.8 mg/dL (7-18); CALCIUM 8.7 mg/dL (8.5-10.1); CREATININE 1.1 mg/dL (0.55-1.3); POTASSIUM 3.3 mmol/L (3.5-5.1); TOT PROT 7.3 g/dl (6.4-8.2)
[2019-09-19] MEDS ORDERED: POTASSIUM CHLORIDE TABS 20 MEQ TABLET.ER (FP) PO ONE ×2 (16:48→17:04)
[2019-09-19] MEDS ORDERED: ACETAMINOPHEN INJECTION 100 ML IVPB ONE (17:04)
[2019-09-19] MEDS ORDERED: ACETAMINOPHEN 500 MG TABLET (FP) PO ONE (17:08)
[2019-09-19] MEDS ORDERED: POTASSIUM CHLORIDE ORAL LIQUID 20 MEQ/15 ML ONE (17:09)
[2019-09-19] MEDS ORDERED: ACETAMINOPHEN 325 MG TABLET (FP) ONE (17:09)
[2019-09-19] MEDS ORDERED: ACETAMINOPHEN 650 MG/20.3 ML ORAL SOLUTION (CUPS) ONE (17:11)
[2019-09-19] MEDS ORDERED: AZITHROMYCIN 250 MG TABLET PO ONE (18:16)
[2019-09-19] MEDS ORDERED: AZITHROMYCIN 200 MG/5 ML BOTTLE PO ONE (18:22)
[2019-09-19] MEDS ORDERED: AZITHROMYCIN 200 MG/5 ML BOTTLE ONE (18:28)
[2019-09-19 19:00] VITALS: BP 109/72; PULSE 85; TEMP 98.1
--- NOTE | 2019-09-20 15:39 | EKG ---
Test Reason : Blood Pressure : / mmHG Vent. Rate : 082 BPM Atrial Rate : 082 BPM P-R Int : 170 ms QRS Dur : 084 ms QT Int : 384 ms P-R-T Axes : 060 008 071 degrees QTc Int : 448 ms NORMAL SINUS RHYTHM RIGHT ATRIAL ENLARGEMENT NONSPECIFIC T WAVE ABNORMALITY ABNORMAL ECG WHEN COMPARED WITH ECG OF 26-JUN-2019 19:17, NO SIGNIFICANT CHANGE WAS FOUND Confirmed by KAYLYN ARGUETA MD ([id number]) on 09/20/2019 3:39:25 PM Referred By: Confirmed By:KAYLYN ARGUETA MD
== END 2019-09-19 19:03 | disposition home or self-care (01) ==
LOC: JER 15:04
DX: J20.9 Acute bronchitis, unspecified (principal); B96.89 Other specified bacterial agents as the cause of diseases classified elsewhere; I10 Essential (primary) hypertension; E78.5 Hyperlipidemia, unspecified; J44.9 Chronic obstructive pulmonary disease, unspecified; J45.998 Other asthma; Z85.21 Personal history of malignant neoplasm of larynx; Z93.0 Tracheostomy status; Z21 Asymptomatic human immunodeficiency virus [HIV] infection status; Z88.0 Allergy status to penicillin; Z88.8 Allergy status to other drugs, medicaments and biological substances; Z91.040 Latex allergy status
CPT/HCPCS: 36415; 71046-TC-FY; 80053; 85025; 87040; 87804; 93005; 93010; 99282-25

== ENCOUNTER 2020-07-22 11:08 | Emergency (ER) | payer OTHER ==
[2020-07-22 11:21] VITALS: BP 116/72; PULSE 93; TEMP 98.6; BMI 36.1
[2020-07-22 13:51] LABS: CHLORIDE 100 mmol/L (98-107); SODIUM 142 mmol/L (136-145)
[2020-07-22 13:53] LABS: INR 1.04 (0.83-1.09); PROTHROMBIN TIME (PATIENT) 12.8 SEC (9.7-13.0)
[2020-07-22 13:55] LABS: ANION GAP 6 MMOL/L (8-16); BLOOD UREA NITROGEN 8.3 mg/dL (7-18); CALCIUM 8.5 mg/dL (8.5-10.1); CO2 36 mmol/L (21-32); GLUCOSE,RANDOM 110 mg/dL (74-106)
[2020-07-22 13:56] LABS: ACTIVATED PTT 28.4 SECONDS (25.2-36.5)
[2020-07-22 13:58] LABS: SGOT/AST 25 U/L (15-37); SGPT/ALT 10 U/L (13-61)
[2020-07-22 14:00] LABS: ALK PHOS 98 U/L (45-117); BILIRUBIN,TOTAL 0.3 mg/dL (0.2-1); TOT PROT 7.1 g/dl (6.4-8.2)
[2020-07-22 14:02] LABS: LDH 518 U/L (84-246)
[2020-07-22 14:07] LABS: HEMATOCRIT 29.1 % (32.4-45.2); HEMOGLOBIN 8.9 GM/dL (10.7-15.3); MCH 29.1 pg (25.7-33.7); MCHC 30.6 g/dl (32.0-36.0); MEAN PLT VOLUME 8.9 fl (7.5-11.1); PLATELET COUNT 147 K/MM3 (134-434); RBC 3.06 M/mm3 (3.60-5.2); RDW 15.6 % (11.6-15.6)
[2020-07-22 14:46] LABS: ANISOCYTOSIS 1+; MACROCYTOSIS 0; PLATELET ESTIMATE NORMAL
== END 2020-07-22 15:30 | disposition home or self-care (01) ==
LOC: JER 11:08
DX: D64.9 Anemia, unspecified (principal)
CPT/HCPCS: 36415; 71045-TC-FY; 80053; 82272; 82550; 82553; 82728; 83010; 83615; 84484; 85025; 85045; 85610; 85730; 93005; 93010; 99285-25; C9803; U0003

== ENCOUNTER 2021-10-30 12:44 | Emergency (ER) | payer OTHER ==
[2021-10-30 13:03] VITALS: BMI 34.7
[2021-10-30] MEDS ORDERED: LACTULOSE 20 GM/30 ML UDC (FOR ORAL USE ONLY) PO ONE (13:40)
[2021-10-30] MEDS ORDERED: POLYETHYLENE GLYCOL (HEALTHYLAX) 3350 17 GM PACKET PO SCH (14:00)
[2021-10-30] MEDS ORDERED: POLYETHYLENE GLYCOL (HEALTHYLAX) 3350 17 GM PACKET ONE (14:12)
[2021-10-30] MEDS ORDERED: MINERAL OIL ENEMA 133 ML ENEMA PR ONE (15:40)
[2021-10-30 17:32] VITALS: BP 108/76; PULSE 77; TEMP 98
== END 2021-10-30 17:38 | disposition home or self-care (01) ==
LOC: JER 12:44
DX: K59.00 Constipation, unspecified (principal)
CPT/HCPCS: 71045-TC-FY; 99283-25

== ENCOUNTER 2021-11-18 14:16 | Inpatient (IN) | payer OTHER ==
[2021-11-18] MEDS ORDERED: SODIUM CHLORIDE FOR INHALATION 3 ML VIAL.NEB IH ONE (14:54)
[2021-11-18] MEDS ORDERED: methylPREDNISolone NA SUCC 125 MG/2 ML VIAL IVPB ONE (14:56)
[2021-11-18] MEDS ORDERED: methylPREDNISolone NA SUCC 125 MG/2 ML VIAL ONE (15:10)
[2021-11-18 15:18] LABS: BASO % 0.3 % (0-2.0); EOS % 0.1 % (0-4.5); HEMATOCRIT 31.4 % (32.4-45.2); HEMOGLOBIN 9.5 GM/dL (10.7-15.3); LYMPH % 7.1 % (8-40); MCH 27.2 pg (25.7-33.7); MCHC 30.3 g/dl (32.0-36.0); MEAN CELL VOLUME 89.9 fl (80-96); MEAN PLT VOLUME 8.9 fl (7.5-11.1); MONO % 4.2 % (3.8-10.2); NEUT % 88.3 % (42.8-82.8); PLATELET COUNT 290 10^3/uL (134-434); RBC 3.49 M/mm3 (3.60-5.2); RDW 15.7 % (11.6-15.6); WHITE BLOOD COUNT 10.8 K/mm3 (4.0-10.0)
[2021-11-18 15:32] LABS: VENOUS BASE EXCESS 8.8 mmol/L (-2-2); VENOUS O2 SATURATION 45.5 % (70-80); VENOUS PCO2 67.8 mmHg (38-52); VENOUS PH 7.348 (7.310-7.410)
[2021-11-18 15:40] LABS: CALCIUM 9.3 mg/dL (8.5-10.1)
[2021-11-18 15:41] LABS: ALBUMIN 2.7 g/dl (3.4-5.0); BLOOD UREA NITROGEN 13.1 mg/dL (7-18)
[2021-11-18 15:44] LABS: CREATININE 1.1 mg/dL (0.55-1.3)
[2021-11-18 15:45] LABS: BILIRUBIN,TOTAL 0.8 mg/dL (0.2-1); TOT PROT 7.7 g/dl (6.4-8.2)
[2021-11-18] MEDS ORDERED: VANCOMYCIN 1 GM in D5W (PRE-DOCKED) 1,000 MG/250 ML IVPB ONE (15:47)
[2021-11-18] MEDS ORDERED: AZTREONAM 2 GM in DEXTROSE 5%-WATER 100 ML IVPB ONE (15:50)
[2021-11-18] MEDS ORDERED: VANCOMYCIN 1 GRAM (PRE-DOCKED) 1,000 MG/250 ML BAG IVPB ONE (15:57)
[2021-11-18] MEDS ORDERED: AZTREONAM 2 GM VIAL (RESTRICTED TO ID) ONE (16:10)
[2021-11-18 16:40] LABS: ARTERIAL BLD GAS O2 SATURATION 94.1 % (95-98); ARTERIAL BLOOD GAS BASE EXCESS 10.7 mmol/L (-2-2); ARTERIAL BLOOD GAS PO2 73.5 mmHg (80-100); ARTERIAL BLOOD GAS pH 7.385 (7.350-7.450)
[2021-11-18 16:50] LABS: ALLENS TEST POSITIVE; VENT MODE SIMV; VENT RATE 9
[2021-11-18 17:03] LABS: EPI CELLS >36 /uL (0-25.1); HYALINE CASTS 3 /uL (0-3.1); URINE APPEARANCE CLOUDY; URINE BACTERIA 2174 /uL (0-1359); URINE BILIRUBIN NEGATIVE (NEGATIVE); URINE COLOR YELLOW; URINE GLUCOSE (UA) NEGATIVE (NEGATIVE); URINE KETONE 1+ (NEGATIVE); URINE LEUK ESTERASE NEGATIVE (NEGATIVE); URINE NITRITE NEGATIVE (NEGATIVE); URINE PROTEIN 1+ (NEGATIVE); URINE RBC 13 /uL (0-23.9); URINE WBC 10 /uL (0-25.8)
[2021-11-18] MEDS ORDERED: ALBUTEROL SO4 HFA INHALER IH PRN (18:38)
[2021-11-18] MEDS ORDERED: ALBUTEROL SO4 2.5/IPRATROPIUM 0.5 INH SOL 3 ML VIAL.NEB. NEB PRN (18:38)
[2021-11-18] MEDS ORDERED: FAMOTIDINE 20 MG/50 ML IVPB 20 MG/50 ML MG IVPB ONE (18:38)
[2021-11-18] MEDS: MUPIROCIN 2% TOPICAL OINTMENT FOR DECOLONIZATION NS SCH (21:36)
[2021-11-18] MEDS: BUDESONIDE/FORMETEROL FUMARATE 80/4.5 mcg INHALER IH SCH (21:36)
[2021-11-18] MEDS: CHLORHEXIDINE GLUCONATE 4% CLEANSER FOR DECOLONIZATION TP SCH (21:36)
[2021-11-18 23:20] LABS: ACTIVATED PTT 32.1 SECONDS (25.2-36.5); INR 1.5 (0.83-1.09); PROTHROMBIN TIME (PATIENT) 17.3 SEC (9.7-13.0)
[2021-11-19] MEDS ORDERED: DEXTROSE 5%-WATER - 50 ML IVPB ONE ×3 (00:32→12:14)
[2021-11-19] MEDS ORDERED: AZTREONAM 1 GM VIAL (RESTRICTED TO ID) ONE ×2 (00:32→09:16)
[2021-11-19] MEDS: AZTREONAM 1 GM in DEXTROSE 5%-WATER - 50 ML IVPB SCH ×2 (02:25→09:19)
[2021-11-19] MEDS: methylPREDNISolone NA SUCC 40 MG/1 ML VIAL IVPUSH SCH ×3 (02:25→17:40)
[2021-11-19 07:22] LABS: BASO % 0.1 % (0-2.0); LYMPH % 7.9 % (8-40); MCH 27.6 pg (25.7-33.7); MCHC 30.8 g/dl (32.0-36.0); MEAN CELL VOLUME 89.7 fl (80-96); MEAN PLT VOLUME 8.5 fl (7.5-11.1); MONO % 1.4 % (3.8-10.2); NEUT % 90.6 % (42.8-82.8); PLATELET COUNT 249 10^3/uL (134-434); RDW 15.5 % (11.6-15.6)
[2021-11-19 07:40] LABS: BLOOD UREA NITROGEN 12.8 mg/dL (7-18); CALCIUM 8.7 mg/dL (8.5-10.1)
[2021-11-19 07:42] LABS: ALBUMIN 2.3 g/dl (3.4-5.0); MAGNESIUM 1.9 mg/dL (1.8-2.4)
[2021-11-19 07:44] LABS: CREATININE 0.9 mg/dL (0.55-1.3); PHOSPHOROUS 3.5 mg/dL (2.5-4.9)
[2021-11-19 07:46] LABS: BILIRUBIN,TOTAL 0.3 mg/dL (0.2-1); TOT PROT 6.6 g/dl (6.4-8.2)
[2021-11-19] MEDS: ENOXAPARIN NA (PORCINE) 40 MG/0.4 ML DISP.SYRIN SQ SCH (09:18)
[2021-11-19] MEDS: MUPIROCIN 2% TOPICAL OINTMENT FOR DECOLONIZATION NS SCH ×2 (09:22→21:16)
[2021-11-19] MEDS ORDERED: VANCOMYCIN 1 GM in D5W (PRE-DOCKED) 1,000 MG/250 ML IVPB SCH (10:00)
[2021-11-19] MEDS ORDERED: cefTRIAXone SODIUM 1 GM VIAL ONE (12:14)
[2021-11-19] MEDS: AZITHROMYCIN IVPB 500 MG/250 ML BAG IVPB SCH (12:19)
[2021-11-19] MEDS: CEFTRIAXONE 1 GM in DEXTROSE 5%-WATER - 50 ML IVPB SCH (12:20)
[2021-11-19] MEDS: ABACAVIR/DOLUTEGRAVIR/LAMIVUDI (TRIUMEQ) TABLET -NF PO SCH (12:27)
[2021-11-19] MEDS ORDERED: ABACAVIR/DOLUTEGRAVIR/LAMIVUDI (TRIUMEQ) TABLET -NF PO SCH (13:30)
[2021-11-19] MEDS ORDERED: PATIENT'S OWN MEDICATION (NON-FORMULARY) (Methadone Hcl [Methadone Hcl] 10 MG/ML Oral.Conc PO SCH (13:30)
[2021-11-19] MEDS: ALBUTEROL SO4 2.5/IPRATROPIUM 0.5 INH SOL 3 ML VIAL.NEB. NEB SCH ×2 (14:06→20:37)
[2021-11-19] MEDS: metoPROLOL SUCCINATE 25 MG TAB.SR.24H (FP) PO SCH (14:24)
[2021-11-19] MEDS: LEVOTHYROXINE NA 125 MCG TABLET (FP) PO SCH (14:25)
[2021-11-19] MEDS: POTASSIUM CHLORIDE TABS 20 MEQ TABLET.ER (FP) PO SCH (14:25)
[2021-11-19] MEDS ORDERED: methaDONE HCL 10 MG TABLET (FOR DETOX USE ONLY) PO ONE (20:58)
[2021-11-19] MEDS: BUDESONIDE/FORMETEROL FUMARATE 80/4.5 mcg INHALER IH SCH (21:16)
[2021-11-19] MEDS: CHLORHEXIDINE GLUCONATE 4% CLEANSER FOR DECOLONIZATION TP SCH (21:16)
[2021-11-19] MEDS: methaDONE HCL 40 MG DISPERSABLE TABLET PO SCH (21:16)
[2021-11-20] MEDS: methylPREDNISolone NA SUCC 40 MG/1 ML VIAL IVPUSH SCH ×3 (01:12→17:46)
[2021-11-20] MEDS: methaDONE HCL 40 MG DISPERSABLE TABLET PO SCH (06:03)
[2021-11-20] MEDS: LEVOTHYROXINE NA 125 MCG TABLET (FP) PO SCH (06:04)
[2021-11-20 07:28] LABS: HEMATOCRIT 25.8 % (32.4-45.2); HEMOGLOBIN 8.1 GM/dL (10.7-15.3); MCH 27.9 pg (25.7-33.7); MCHC 31.4 g/dl (32.0-36.0); MEAN CELL VOLUME 88.7 fl (80-96); MEAN PLT VOLUME 8.3 fl (7.5-11.1); PLATELET COUNT 253 10^3/uL (134-434); RDW 15.8 % (11.6-15.6); WHITE BLOOD COUNT 10.9 K/mm3 (4.0-10.0)
[2021-11-20 07:32] LABS: ALBUMIN 2.3 g/dl (3.4-5.0); CALCIUM 8.8 mg/dL (8.5-10.1)
[2021-11-20 07:33] LABS: BLOOD UREA NITROGEN 14.5 mg/dL (7-18)
[2021-11-20 07:36] LABS: CREATININE 0.9 mg/dL (0.55-1.3)
[2021-11-20 07:37] LABS: BILIRUBIN,TOTAL 0.2 mg/dL (0.2-1); TOT PROT 6.7 g/dl (6.4-8.2)
[2021-11-20] MEDS: ALBUTEROL SO4 2.5/IPRATROPIUM 0.5 INH SOL 3 ML VIAL.NEB. NEB SCH ×3 (08:12→20:40)
[2021-11-20] MEDS ORDERED: cefTRIAXone SODIUM 1 GM VIAL ONE (09:09)
[2021-11-20] MEDS ORDERED: DEXTROSE 5%-WATER - 50 ML IVPB ONE (09:10)
[2021-11-20 09:22] LABS: ANISOCYTOSIS 0; MACROCYTOSIS 0; OVALOCYTE 1+
[2021-11-20] MEDS: metoPROLOL SUCCINATE 25 MG TAB.SR.24H (FP) PO SCH (09:30)
[2021-11-20] MEDS: FOLIC ACID 1 MG TABLET (FP) PO SCH (09:30)
[2021-11-20] MEDS: FERROUS SO4 325 MG TABLET (FP) PO SCH ×2 (09:30→09:49)
[2021-11-20] MEDS: CEFTRIAXONE 1 GM in DEXTROSE 5%-WATER - 50 ML IVPB SCH (09:30)
[2021-11-20] MEDS: POTASSIUM CHLORIDE TABS 20 MEQ TABLET.ER (FP) PO SCH ×2 (09:30→09:49)
[2021-11-20] MEDS: ENOXAPARIN NA (PORCINE) 40 MG/0.4 ML DISP.SYRIN SQ SCH (09:31)
[2021-11-20] MEDS: AZITHROMYCIN IVPB 500 MG/250 ML BAG IVPB SCH (09:32)
[2021-11-20] MEDS: ABACAVIR/DOLUTEGRAVIR/LAMIVUDI (TRIUMEQ) TABLET -NF PO SCH (09:41)
[2021-11-20] MEDS: MUPIROCIN 2% TOPICAL OINTMENT FOR DECOLONIZATION NS SCH ×2 (09:42→21:18)
[2021-11-20] MEDS: BUDESONIDE/FORMETEROL FUMARATE 80/4.5 mcg INHALER IH SCH ×2 (09:47→21:17)
[2021-11-20 13:56] VITALS: BMI 29.2
[2021-11-20] MEDS ORDERED: ACETAMINOPHEN 325 MG TABLET (FP) PO PRN (18:49)
[2021-11-20] MEDS: CHLORHEXIDINE GLUCONATE 4% CLEANSER FOR DECOLONIZATION TP SCH (21:18)
[2021-11-21] MEDS: methylPREDNISolone NA SUCC 40 MG/1 ML VIAL IVPUSH SCH ×3 (01:59→18:39)
[2021-11-21] MEDS: methaDONE HCL 40 MG DISPERSABLE TABLET PO SCH (05:45)
[2021-11-21] MEDS: LEVOTHYROXINE NA 125 MCG TABLET (FP) PO SCH (06:06)
[2021-11-21 07:39] LABS: BASO % 0.1 % (0-2.0); HEMATOCRIT 26.5 % (32.4-45.2); HEMOGLOBIN 8.1 GM/dL (10.7-15.3); LYMPH % 6.9 % (8-40); MCH 27.5 pg (25.7-33.7); MCHC 30.7 g/dl (32.0-36.0); MEAN CELL VOLUME 89.5 fl (80-96); MEAN PLT VOLUME 8.2 fl (7.5-11.1); MONO % 4.7 % (3.8-10.2); NEUT % 88.3 % (42.8-82.8); PLATELET COUNT 270 10^3/uL (134-434); RBC 2.96 M/mm3 (3.60-5.2); RDW 15.5 % (11.6-15.6); WHITE BLOOD COUNT 8.7 K/mm3 (4.0-10.0)
[2021-11-21 07:53] LABS: ALBUMIN 2.4 g/dl (3.4-5.0); BLOOD UREA NITROGEN 14.6 mg/dL (7-18); CALCIUM 8.7 mg/dL (8.5-10.1)
[2021-11-21 07:56] LABS: CREATININE 0.9 mg/dL (0.55-1.3)
[2021-11-21 07:58] LABS: BILIRUBIN,TOTAL 0.2 mg/dL (0.2-1); TOT PROT 6.7 g/dl (6.4-8.2)
[2021-11-21] MEDS: ALBUTEROL SO4 2.5/IPRATROPIUM 0.5 INH SOL 3 ML VIAL.NEB. NEB SCH ×3 (09:30→20:08)
[2021-11-21] MEDS ORDERED: cefTRIAXone SODIUM 1 GM VIAL ONE (09:35)
[2021-11-21] MEDS ORDERED: DEXTROSE 5%-WATER - 50 ML IVPB ONE (09:35)
[2021-11-21] MEDS: ENOXAPARIN NA (PORCINE) 40 MG/0.4 ML DISP.SYRIN SQ SCH (10:22)
[2021-11-21] MEDS: BUDESONIDE/FORMETEROL FUMARATE 80/4.5 mcg INHALER IH SCH ×2 (10:24→22:58)
[2021-11-21] MEDS: POTASSIUM CHLORIDE TABS 20 MEQ TABLET.ER (FP) PO SCH (10:24)
[2021-11-21] MEDS: CEFTRIAXONE 1 GM in DEXTROSE 5%-WATER - 50 ML IVPB SCH (10:24)
[2021-11-21] MEDS: MUPIROCIN 2% TOPICAL OINTMENT FOR DECOLONIZATION NS SCH ×2 (10:24→22:58)
[2021-11-21] MEDS: FOLIC ACID 1 MG TABLET (FP) PO SCH (10:24)
[2021-11-21] MEDS: FERROUS SO4 325 MG TABLET (FP) PO SCH (10:24)
[2021-11-21] MEDS: ABACAVIR/DOLUTEGRAVIR/LAMIVUDI (TRIUMEQ) TABLET -NF PO SCH (10:25)
[2021-11-21] MEDS: metoPROLOL SUCCINATE 25 MG TAB.SR.24H (FP) PO SCH (10:25)
[2021-11-21] MEDS: AZITHROMYCIN IVPB 500 MG/250 ML BAG IVPB SCH (10:25)
[2021-11-21] MEDS ORDERED: ACETAMINOPHEN 325 MG TABLET (FP) PO PRN (22:09)
[2021-11-21] MEDS ORDERED: methaDONE HCL 10 MG TABLET (FOR DETOX USE ONLY) PO ONE (22:09)
[2021-11-21] MEDS ORDERED: ALBUTEROL SO4 HFA INHALER IH PRN (22:09)
[2021-11-21] MEDS: CHLORHEXIDINE GLUCONATE 4% CLEANSER FOR DECOLONIZATION TP SCH (22:58)
[2021-11-22] MEDS: methylPREDNISolone NA SUCC 40 MG/1 ML VIAL IVPUSH SCH ×3 (03:54→18:09)
[2021-11-22] MEDS: LEVOTHYROXINE NA 125 MCG TABLET (FP) PO SCH (06:00)
[2021-11-22] MEDS: methaDONE HCL 40 MG DISPERSABLE TABLET PO SCH (06:01)
[2021-11-22] MEDS: ALBUTEROL SO4 2.5/IPRATROPIUM 0.5 INH SOL 3 ML VIAL.NEB. NEB SCH ×3 (08:08→20:50)
[2021-11-22] MEDS ORDERED: cefTRIAXone SODIUM 1 GM VIAL ONE (08:55)
[2021-11-22] MEDS ORDERED: DEXTROSE 5%-WATER - 50 ML IVPB ONE (08:56)
[2021-11-22] MEDS: ABACAVIR/DOLUTEGRAVIR/LAMIVUDI (TRIUMEQ) TABLET -NF PO SCH (09:02)
[2021-11-22] MEDS: POTASSIUM CHLORIDE TABS 20 MEQ TABLET.ER (FP) PO SCH (09:02)
[2021-11-22] MEDS: FOLIC ACID 1 MG TABLET (FP) PO SCH (09:02)
[2021-11-22] MEDS: FERROUS SO4 325 MG TABLET (FP) PO SCH (09:02)
[2021-11-22] MEDS: CEFTRIAXONE 1 GM in DEXTROSE 5%-WATER - 50 ML IVPB SCH (09:03)
[2021-11-22] MEDS: ENOXAPARIN NA (PORCINE) 40 MG/0.4 ML DISP.SYRIN SQ SCH (09:03)
[2021-11-22] MEDS: metoPROLOL SUCCINATE 25 MG TAB.SR.24H (FP) PO SCH (09:18)
[2021-11-22] MEDS ORDERED: MUPIROCIN 2% TOPICAL OINTMENT FOR DECOLONIZATION NS SCH (10:00)
[2021-11-22] MEDS ORDERED: ABACAVIR/DOLUTEGRAVIR/LAMIVUDI (TRIUMEQ) TABLET -NF PO SCH (10:00)
[2021-11-22 10:26] LABS: BASO % 0.3 % (0-2.0); HEMATOCRIT 30.7 % (32.4-45.2); HEMOGLOBIN 9.3 GM/dL (10.7-15.3); LYMPH % 6.3 % (8-40); MCH 27.1 pg (25.7-33.7); MCHC 30.3 g/dl (32.0-36.0); MEAN CELL VOLUME 89.3 fl (80-96); MEAN PLT VOLUME 7.9 fl (7.5-11.1); MONO % 2.8 % (3.8-10.2); NEUT % 90.6 % (42.8-82.8); PLATELET COUNT 312 10^3/uL (134-434); RBC 3.44 M/mm3 (3.60-5.2); RDW 15.7 % (11.6-15.6); WHITE BLOOD COUNT 9.3 K/mm3 (4.0-10.0)
[2021-11-22] MEDS: AZITHROMYCIN IVPB 500 MG/250 ML BAG IVPB SCH (10:55)
[2021-11-22 10:57] LABS: ALBUMIN 2.6 g/dl (3.4-5.0); BLOOD UREA NITROGEN 17.2 mg/dL (7-18); CALCIUM 8.9 mg/dL (8.5-10.1)
[2021-11-22 11:00] LABS: CREATININE 1.1 mg/dL (0.55-1.3)
[2021-11-22 11:01] LABS: BILIRUBIN,TOTAL 0.3 mg/dL (0.2-1)
[2021-11-22] MEDS: BUDESONIDE/FORMETEROL FUMARATE 80/4.5 mcg INHALER IH SCH (11:05)
[2021-11-22] MEDS: DOCUSATE SODIUM 100 MG CAPSULE (FP) PO SCH (13:31)
[2021-11-22] MEDS: POLYETHYLENE GLYCOL (HEALTHYLAX) 3350 17 GM PACKET PO SCH (13:31)
[2021-11-22] MEDS ORDERED: CHLORHEXIDINE GLUCONATE 4% CLEANSER FOR DECOLONIZATION TP SCH (22:00)
[2021-11-22] MEDS: SENNOSIDES 8.6MG TABLET (FP) PO SCH (22:10)
[2021-11-23] MEDS: BUDESONIDE/FORMETEROL FUMARATE 80/4.5 mcg INHALER IH SCH ×3 (00:01→21:49)
[2021-11-23] MEDS: methylPREDNISolone NA SUCC 40 MG/1 ML VIAL IVPUSH SCH ×3 (02:03→18:39)
[2021-11-23] MEDS: methaDONE HCL 40 MG DISPERSABLE TABLET PO SCH (06:16)
[2021-11-23] MEDS: LEVOTHYROXINE NA 125 MCG TABLET (FP) PO SCH (06:17)
[2021-11-23 08:17] LABS: BASO % 0.1 % (0-2.0); HEMATOCRIT 30.7 % (32.4-45.2); HEMOGLOBIN 9.5 GM/dL (10.7-15.3); LYMPH % 7.1 % (8-40); MCH 27.3 pg (25.7-33.7); MCHC 31.1 g/dl (32.0-36.0); MEAN CELL VOLUME 87.7 fl (80-96); MEAN PLT VOLUME 7.5 fl (7.5-11.1); MONO % 4.6 % (3.8-10.2); NEUT % 88.2 % (42.8-82.8); PLATELET COUNT 290 10^3/uL (134-434); RBC 3.49 M/mm3 (3.60-5.2); RDW 15.8 % (11.6-15.6); WHITE BLOOD COUNT 8.6 K/mm3 (4.0-10.0)
[2021-11-23 08:40] LABS: ALBUMIN 2.6 g/dl (3.4-5.0); BLOOD UREA NITROGEN 18.5 mg/dL (7-18); CALCIUM 8.8 mg/dL (8.5-10.1)
[2021-11-23] MEDS: ALBUTEROL SO4 2.5/IPRATROPIUM 0.5 INH SOL 3 ML VIAL.NEB. NEB SCH ×3 (08:40→20:00)
[2021-11-23 08:43] LABS: CREATININE 0.9 mg/dL (0.55-1.3)
[2021-11-23 08:45] LABS: BILIRUBIN,TOTAL 0.3 mg/dL (0.2-1); TOT PROT 6.7 g/dl (6.4-8.2)
[2021-11-23] MEDS ORDERED: DEXTROSE 5%-WATER - 50 ML IVPB ONE (09:25)
[2021-11-23] MEDS ORDERED: cefTRIAXone SODIUM 1 GM VIAL ONE (09:25)
[2021-11-23] MEDS: ABACAVIR/DOLUTEGRAVIR/LAMIVUDI (TRIUMEQ) TABLET -NF PO SCH (09:50)
[2021-11-23] MEDS: FERROUS SO4 325 MG TABLET (FP) PO SCH (09:50)
[2021-11-23] MEDS: DOCUSATE SODIUM 100 MG CAPSULE (FP) PO SCH (09:51)
[2021-11-23] MEDS: POTASSIUM CHLORIDE TABS 20 MEQ TABLET.ER (FP) PO SCH (09:51)
[2021-11-23] MEDS: FOLIC ACID 1 MG TABLET (FP) PO SCH (09:51)
[2021-11-23] MEDS: metoPROLOL SUCCINATE 25 MG TAB.SR.24H (FP) PO SCH (09:51)
[2021-11-23] MEDS: POLYETHYLENE GLYCOL (HEALTHYLAX) 3350 17 GM PACKET PO SCH (09:55)
[2021-11-23] MEDS: ENOXAPARIN NA (PORCINE) 40 MG/0.4 ML DISP.SYRIN SQ SCH (09:56)
[2021-11-23] MEDS: CEFTRIAXONE 1 GM in DEXTROSE 5%-WATER - 50 ML IVPB SCH (09:56)
[2021-11-23] MEDS: AZITHROMYCIN IVPB 500 MG/250 ML BAG IVPB SCH (10:40)
[2021-11-23] MEDS: SENNOSIDES 8.6MG TABLET (FP) PO SCH (21:55)
[2021-11-24] MEDS: methylPREDNISolone NA SUCC 40 MG/1 ML VIAL IVPUSH SCH ×3 (01:59→21:13)
[2021-11-24] MEDS: methaDONE HCL 40 MG DISPERSABLE TABLET PO SCH (06:23)
[2021-11-24] MEDS: LEVOTHYROXINE NA 125 MCG TABLET (FP) PO SCH (06:23)
[2021-11-24 07:44] LABS: BASO % 0.1 % (0-2.0); HEMATOCRIT 31.5 % (32.4-45.2); HEMOGLOBIN 9.9 GM/dL (10.7-15.3); LYMPH % 6.5 % (8-40); MCH 27.6 pg (25.7-33.7); MCHC 31.3 g/dl (32.0-36.0); MEAN CELL VOLUME 88.1 fl (80-96); MEAN PLT VOLUME 7.5 fl (7.5-11.1); MONO % 3.6 % (3.8-10.2); NEUT % 89.8 % (42.8-82.8); PLATELET COUNT 339 10^3/uL (134-434); RBC 3.58 M/mm3 (3.60-5.2); RDW 16.1 % (11.6-15.6); WHITE BLOOD COUNT 9.5 K/mm3 (4.0-10.0)
[2021-11-24] MEDS: ALBUTEROL SO4 2.5/IPRATROPIUM 0.5 INH SOL 3 ML VIAL.NEB. NEB SCH ×3 (07:54→19:56)
[2021-11-24 07:59] LABS: CALCIUM 8.9 mg/dL (8.5-10.1)
[2021-11-24 08:00] LABS: BLOOD UREA NITROGEN 20.3 mg/dL (7-18)
[2021-11-24] MEDS ORDERED: DEXTROSE 5%-WATER - 50 ML IVPB ONE (10:37)
[2021-11-24] MEDS ORDERED: cefTRIAXone SODIUM 1 GM VIAL ONE (10:37)
[2021-11-24] MEDS: BUDESONIDE/FORMETEROL FUMARATE 80/4.5 mcg INHALER IH SCH ×2 (11:01→21:15)
[2021-11-24] MEDS: metoPROLOL SUCCINATE 25 MG TAB.SR.24H (FP) PO SCH (11:04)
[2021-11-24] MEDS: FOLIC ACID 1 MG TABLET (FP) PO SCH (11:04)
[2021-11-24] MEDS: FUROSEMIDE 40 MG TABLET (FP) PO SCH (11:04)
[2021-11-24] MEDS: DOCUSATE SODIUM 100 MG CAPSULE (FP) PO SCH (11:05)
[2021-11-24] MEDS: FERROUS SO4 325 MG TABLET (FP) PO SCH (11:05)
[2021-11-24] MEDS: ABACAVIR/DOLUTEGRAVIR/LAMIVUDI (TRIUMEQ) TABLET -NF PO SCH (11:05)
[2021-11-24] MEDS: POTASSIUM CHLORIDE TABS 20 MEQ TABLET.ER (FP) PO SCH (11:05)
[2021-11-24] MEDS: ENOXAPARIN NA (PORCINE) 40 MG/0.4 ML DISP.SYRIN SQ SCH (11:05)
[2021-11-24] MEDS: POLYETHYLENE GLYCOL (HEALTHYLAX) 3350 17 GM PACKET PO SCH (11:05)
[2021-11-24] MEDS: AZITHROMYCIN IVPB 500 MG/250 ML BAG IVPB SCH (11:06)
[2021-11-24] MEDS: CEFTRIAXONE 1 GM in DEXTROSE 5%-WATER - 50 ML IVPB SCH (11:06)
[2021-11-24] MEDS: SENNOSIDES 8.6MG TABLET (FP) PO SCH (21:13)
[2021-11-25] MEDS: methaDONE HCL 40 MG DISPERSABLE TABLET PO SCH (05:40)
[2021-11-25] MEDS: LEVOTHYROXINE NA 125 MCG TABLET (FP) PO SCH (06:00)
[2021-11-25 07:10] LABS: BASO % 0.2 % (0-2.0); HEMATOCRIT 32.1 % (32.4-45.2); HEMOGLOBIN 9.9 GM/dL (10.7-15.3); MCH 27.4 pg (25.7-33.7); MEAN CELL VOLUME 88.2 fl (80-96); MEAN PLT VOLUME 7.6 fl (7.5-11.1); MONO % 7.6 % (3.8-10.2); NEUT % 86.2 % (42.8-82.8); PLATELET COUNT 341 10^3/uL (134-434); RBC 3.64 M/mm3 (3.60-5.2); RDW 16.2 % (11.6-15.6); WHITE BLOOD COUNT 11.3 K/mm3 (4.0-10.0)
[2021-11-25 07:34] LABS: CALCIUM 9.4 mg/dL (8.5-10.1)
[2021-11-25 07:35] LABS: ALBUMIN 2.7 g/dl (3.4-5.0); BLOOD UREA NITROGEN 26.6 mg/dL (7-18)
[2021-11-25 07:38] LABS: BILIRUBIN,TOTAL 0.3 mg/dL (0.2-1); TOT PROT 6.5 g/dl (6.4-8.2)
[2021-11-25] MEDS: ALBUTEROL SO4 2.5/IPRATROPIUM 0.5 INH SOL 3 ML VIAL.NEB. NEB SCH ×3 (09:15→20:26)
[2021-11-25] MEDS ORDERED: cefTRIAXone SODIUM 1 GM VIAL ONE (10:15)
[2021-11-25] MEDS ORDERED: DEXTROSE 5%-WATER - 50 ML IVPB ONE (10:16)
[2021-11-25] MEDS: ABACAVIR/DOLUTEGRAVIR/LAMIVUDI (TRIUMEQ) TABLET -NF PO SCH (10:18)
[2021-11-25] MEDS: ENOXAPARIN NA (PORCINE) 40 MG/0.4 ML DISP.SYRIN SQ SCH (10:19)
[2021-11-25] MEDS: CEFTRIAXONE 1 GM in DEXTROSE 5%-WATER - 50 ML IVPB SCH (10:19)
[2021-11-25] MEDS: methylPREDNISolone NA SUCC 40 MG/1 ML VIAL IVPUSH SCH ×2 (10:20→21:43)
[2021-11-25] MEDS: metoPROLOL SUCCINATE 25 MG TAB.SR.24H (FP) PO SCH (10:20)
[2021-11-25] MEDS: FOLIC ACID 1 MG TABLET (FP) PO SCH (10:20)
[2021-11-25] MEDS: FERROUS SO4 325 MG TABLET (FP) PO SCH (10:20)
[2021-11-25] MEDS: POLYETHYLENE GLYCOL (HEALTHYLAX) 3350 17 GM PACKET PO SCH (10:20)
[2021-11-25] MEDS: POTASSIUM CHLORIDE TABS 20 MEQ TABLET.ER (FP) PO SCH (10:20)
[2021-11-25] MEDS: FUROSEMIDE 40 MG TABLET (FP) PO SCH (10:20)
[2021-11-25] MEDS: DOCUSATE SODIUM 100 MG CAPSULE (FP) PO SCH (10:20)
[2021-11-25] MEDS: AZITHROMYCIN IVPB 500 MG/250 ML BAG IVPB SCH (12:02)
[2021-11-25] MEDS: BUDESONIDE/FORMETEROL FUMARATE 80/4.5 mcg INHALER IH SCH ×2 (12:02→21:43)
[2021-11-25] MEDS: SENNOSIDES 8.6MG TABLET (FP) PO SCH (21:43)
[2021-11-26] MEDS: methaDONE HCL 40 MG DISPERSABLE TABLET PO SCH (06:00)
[2021-11-26] MEDS: LEVOTHYROXINE NA 125 MCG TABLET (FP) PO SCH (06:00)
[2021-11-26 08:23] LABS: BASO % 0.1 % (0-2.0); HEMATOCRIT 31.5 % (32.4-45.2); HEMOGLOBIN 9.9 GM/dL (10.7-15.3); LYMPH % 6.8 % (8-40); MCH 27.9 pg (25.7-33.7); MCHC 31.5 g/dl (32.0-36.0); MEAN CELL VOLUME 88.6 fl (80-96); MEAN PLT VOLUME 7.8 fl (7.5-11.1); MONO % 6.4 % (3.8-10.2); NEUT % 86.7 % (42.8-82.8); PLATELET COUNT 302 10^3/uL (134-434); RBC 3.56 M/mm3 (3.60-5.2); RDW 16.2 % (11.6-15.6); WHITE BLOOD COUNT 10.8 K/mm3 (4.0-10.0)
[2021-11-26 08:42] LABS: CALCIUM 8.8 mg/dL (8.5-10.1)
[2021-11-26 08:43] LABS: ALBUMIN 2.6 g/dl (3.4-5.0); BLOOD UREA NITROGEN 25.4 mg/dL (7-18)
[2021-11-26] MEDS: ALBUTEROL SO4 2.5/IPRATROPIUM 0.5 INH SOL 3 ML VIAL.NEB. NEB SCH ×3 (08:43→20:10)
[2021-11-26 08:47] LABS: TOT PROT 6.2 g/dl (6.4-8.2)
[2021-11-26 08:48] LABS: BILIRUBIN,TOTAL 0.2 mg/dL (0.2-1)
[2021-11-26] MEDS: POTASSIUM CHLORIDE TABS 20 MEQ TABLET.ER (FP) PO SCH (09:34)
[2021-11-26] MEDS: ENOXAPARIN NA (PORCINE) 40 MG/0.4 ML DISP.SYRIN SQ SCH (09:34)
[2021-11-26] MEDS: FOLIC ACID 1 MG TABLET (FP) PO SCH (09:34)
[2021-11-26] MEDS: FERROUS SO4 325 MG TABLET (FP) PO SCH (09:34)
[2021-11-26] MEDS: FUROSEMIDE 40 MG TABLET (FP) PO SCH (09:34)
[2021-11-26] MEDS: methylPREDNISolone NA SUCC 40 MG/1 ML VIAL IVPUSH SCH (09:34)
[2021-11-26] MEDS: DOCUSATE SODIUM 100 MG CAPSULE (FP) PO SCH (09:34)
[2021-11-26] MEDS: metoPROLOL SUCCINATE 25 MG TAB.SR.24H (FP) PO SCH (09:34)
[2021-11-26] MEDS: POLYETHYLENE GLYCOL (HEALTHYLAX) 3350 17 GM PACKET PO SCH (09:34)
[2021-11-26] MEDS: ABACAVIR/DOLUTEGRAVIR/LAMIVUDI (TRIUMEQ) TABLET -NF PO SCH (09:35)
[2021-11-26 10:54] LABS: N-TERMINAL BNP 1079.8 pg/ml (5-125)
[2021-11-26] MEDS: BUDESONIDE/FORMETEROL FUMARATE 80/4.5 mcg INHALER IH SCH ×2 (11:04→21:47)
[2021-11-26] MEDS: SENNOSIDES 8.6MG TABLET (FP) PO SCH (21:31)
[2021-11-27] MEDS: LEVOTHYROXINE NA 125 MCG TABLET (FP) PO SCH (06:43)
[2021-11-27] MEDS: methaDONE HCL 40 MG DISPERSABLE TABLET PO SCH (06:43)
[2021-11-27] MEDS: ABACAVIR/DOLUTEGRAVIR/LAMIVUDI (TRIUMEQ) TABLET -NF PO SCH (08:43)
[2021-11-27] MEDS: ALBUTEROL SO4 2.5/IPRATROPIUM 0.5 INH SOL 3 ML VIAL.NEB. NEB SCH ×3 (08:55→19:51)
[2021-11-27 10:38] LABS: BASO % 0.1 % (0-2.0); EOS % 0.1 % (0-4.5); HEMATOCRIT 32.3 % (32.4-45.2); HEMOGLOBIN 9.9 GM/dL (10.7-15.3); LYMPH % 19.2 % (8-40); MCH 27.4 pg (25.7-33.7); MCHC 30.7 g/dl (32.0-36.0); MEAN CELL VOLUME 89.2 fl (80-96); MEAN PLT VOLUME 8.1 fl (7.5-11.1); MONO % 6.3 % (3.8-10.2); NEUT % 74.3 % (42.8-82.8); PLATELET COUNT 300 10^3/uL (134-434); RBC 3.62 M/mm3 (3.60-5.2); RDW 16.2 % (11.6-15.6); WHITE BLOOD COUNT 13.1 K/mm3 (4.0-10.0)
[2021-11-27] MEDS: ENOXAPARIN NA (PORCINE) 40 MG/0.4 ML DISP.SYRIN SQ SCH (10:46)
[2021-11-27] MEDS: metoPROLOL SUCCINATE 25 MG TAB.SR.24H (FP) PO SCH (10:46)
[2021-11-27] MEDS: methylPREDNISolone NA SUCC 40 MG/1 ML VIAL IVPUSH SCH (10:46)
[2021-11-27] MEDS: POLYETHYLENE GLYCOL (HEALTHYLAX) 3350 17 GM PACKET PO SCH (10:46)
[2021-11-27] MEDS: DOCUSATE SODIUM 100 MG CAPSULE (FP) PO SCH (10:46)
[2021-11-27] MEDS: POTASSIUM CHLORIDE TABS 20 MEQ TABLET.ER (FP) PO SCH (10:46)
[2021-11-27] MEDS: FOLIC ACID 1 MG TABLET (FP) PO SCH (10:46)
[2021-11-27 10:47] LABS: ALBUMIN 2.7 g/dl (3.4-5.0); BLOOD UREA NITROGEN 22.1 mg/dL (7-18); CALCIUM 8.7 mg/dL (8.5-10.1)
[2021-11-27] MEDS: FUROSEMIDE 40 MG TABLET (FP) PO SCH (10:47)
[2021-11-27] MEDS: FERROUS SO4 325 MG TABLET (FP) PO SCH (10:47)
[2021-11-27 10:50] LABS: CREATININE 1.1 mg/dL (0.55-1.3)
[2021-11-27 10:52] LABS: BILIRUBIN,TOTAL 0.2 mg/dL (0.2-1); TOT PROT 6.1 g/dl (6.4-8.2)
[2021-11-27] MEDS: BUDESONIDE/FORMETEROL FUMARATE 80/4.5 mcg INHALER IH SCH ×2 (10:55→21:39)
[2021-11-27] MEDS: SENNOSIDES 8.6MG TABLET (FP) PO SCH (21:41)
[2021-11-28] MEDS: LEVOTHYROXINE NA 125 MCG TABLET (FP) PO SCH (06:30)
[2021-11-28] MEDS: methaDONE HCL 40 MG DISPERSABLE TABLET PO SCH (06:30)
[2021-11-28] MEDS: ALBUTEROL SO4 2.5/IPRATROPIUM 0.5 INH SOL 3 ML VIAL.NEB. NEB SCH ×3 (08:02→19:32)
[2021-11-28] MEDS: ABACAVIR/DOLUTEGRAVIR/LAMIVUDI (TRIUMEQ) TABLET -NF PO SCH (08:04)
[2021-11-28] MEDS: FERROUS SO4 325 MG TABLET (FP) PO SCH (09:13)
[2021-11-28] MEDS: FUROSEMIDE 40 MG TABLET (FP) PO SCH (09:13)
[2021-11-28] MEDS: POTASSIUM CHLORIDE TABS 20 MEQ TABLET.ER (FP) PO SCH (09:13)
[2021-11-28] MEDS: FOLIC ACID 1 MG TABLET (FP) PO SCH (09:13)
[2021-11-28] MEDS: methylPREDNISolone NA SUCC 40 MG/1 ML VIAL IVPUSH SCH (09:14)
[2021-11-28] MEDS: metoPROLOL SUCCINATE 25 MG TAB.SR.24H (FP) PO SCH (09:14)
[2021-11-28] MEDS: ENOXAPARIN NA (PORCINE) 40 MG/0.4 ML DISP.SYRIN SQ SCH (09:14)
[2021-11-28] MEDS: DOCUSATE SODIUM 100 MG CAPSULE (FP) PO SCH (09:15)
[2021-11-28] MEDS: POLYETHYLENE GLYCOL (HEALTHYLAX) 3350 17 GM PACKET PO SCH (09:15)
[2021-11-28] MEDS: BUDESONIDE/FORMETEROL FUMARATE 80/4.5 mcg INHALER IH SCH ×2 (09:16→21:39)
[2021-11-28] MEDS: SENNOSIDES 8.6MG TABLET (FP) PO SCH (21:39)
[2021-11-29] MEDS: LEVOTHYROXINE NA 125 MCG TABLET (FP) PO SCH (06:25)
[2021-11-29] MEDS: methaDONE HCL 40 MG DISPERSABLE TABLET PO SCH (06:25)
[2021-11-29] MEDS: ALBUTEROL SO4 2.5/IPRATROPIUM 0.5 INH SOL 3 ML VIAL.NEB. NEB SCH ×3 (08:11→19:28)
[2021-11-29] MEDS: POLYETHYLENE GLYCOL (HEALTHYLAX) 3350 17 GM PACKET PO SCH (11:30)
[2021-11-29] MEDS: ENOXAPARIN NA (PORCINE) 40 MG/0.4 ML DISP.SYRIN SQ SCH (11:30)
[2021-11-29] MEDS: DOCUSATE SODIUM 100 MG CAPSULE (FP) PO SCH (11:31)
[2021-11-29] MEDS: POTASSIUM CHLORIDE TABS 20 MEQ TABLET.ER (FP) PO SCH (11:31)
[2021-11-29] MEDS: FUROSEMIDE 40 MG TABLET (FP) PO SCH (11:31)
[2021-11-29] MEDS: FERROUS SO4 325 MG TABLET (FP) PO SCH (11:31)
[2021-11-29] MEDS: ABACAVIR/DOLUTEGRAVIR/LAMIVUDI (TRIUMEQ) TABLET -NF PO SCH (11:32)
[2021-11-29] MEDS: metoPROLOL SUCCINATE 25 MG TAB.SR.24H (FP) PO SCH (11:33)
[2021-11-29] MEDS: FOLIC ACID 1 MG TABLET (FP) PO SCH (11:33)
[2021-11-29] MEDS: methylPREDNISolone NA SUCC 40 MG/1 ML VIAL IVPUSH SCH (11:33)
[2021-11-29] MEDS: BUDESONIDE/FORMETEROL FUMARATE 80/4.5 mcg INHALER IH SCH ×2 (11:35→22:32)
[2021-11-29 21:48] LABS: BLOOD UREA NITROGEN 23.9 mg/dL (7-18)
[2021-11-29 21:52] LABS: CREATININE 1.3 mg/dL (0.55-1.3)
[2021-11-29] MEDS: SENNOSIDES 8.6MG TABLET (FP) PO SCH (22:31)
[2021-11-30] MEDS: methaDONE HCL 40 MG DISPERSABLE TABLET PO SCH (06:34)
[2021-11-30] MEDS: LEVOTHYROXINE NA 125 MCG TABLET (FP) PO SCH (06:34)
[2021-11-30] MEDS: ALBUTEROL SO4 2.5/IPRATROPIUM 0.5 INH SOL 3 ML VIAL.NEB. NEB SCH ×2 (08:00→14:36)
[2021-11-30] MEDS ORDERED: predniSONE 10 MG TABLET (UD) PO SCH (10:00)
[2021-11-30] MEDS: FERROUS SO4 325 MG TABLET (FP) PO SCH (10:19)
[2021-11-30] MEDS: metoPROLOL SUCCINATE 25 MG TAB.SR.24H (FP) PO SCH (10:19)
[2021-11-30] MEDS: POLYETHYLENE GLYCOL (HEALTHYLAX) 3350 17 GM PACKET PO SCH (10:19)
[2021-11-30] MEDS: DOCUSATE SODIUM 100 MG CAPSULE (FP) PO SCH (10:19)
[2021-11-30] MEDS: POTASSIUM CHLORIDE TABS 20 MEQ TABLET.ER (FP) PO SCH (10:19)
[2021-11-30] MEDS: FUROSEMIDE 40 MG TABLET (FP) PO SCH (10:20)
[2021-11-30] MEDS: ABACAVIR/DOLUTEGRAVIR/LAMIVUDI (TRIUMEQ) TABLET -NF PO SCH (10:20)
[2021-11-30] MEDS: FOLIC ACID 1 MG TABLET (FP) PO SCH (10:20)
[2021-11-30] MEDS: ENOXAPARIN NA (PORCINE) 40 MG/0.4 ML DISP.SYRIN SQ SCH (10:20)
[2021-11-30] MEDS: BUDESONIDE/FORMETEROL FUMARATE 80/4.5 mcg INHALER IH SCH (10:21)
[2021-11-30 14:36] VITALS: PULSE 87
[2021-11-30 15:12] VITALS: BP 95/61; TEMP 98.3
== END 2021-11-30 18:47 | disposition home or self-care (01) | DRG 208 ==
LOC: JER 14:16 → JERBED 17:01 → JICU 19:59 → J5S 11-21 22:08
PROVIDERS: ADMIT Internal Medicine
PROC: 5A1945Z Respiratory Ventilation, 24-96 Consecutive Hours (ICD-10-PCS; principal; 2021-11-18)
DX: J18.9 Pneumonia, unspecified organism (principal); J96.21 Acute and chronic respiratory failure with hypoxia; F11.20 Opioid dependence, uncomplicated; J44.1 Chronic obstructive pulmonary disease with (acute) exacerbation; T17.800A Unspecified foreign body in other parts of respiratory tract causing asphyxiation, initial encounter; E87.2 Acidosis; Z21 Asymptomatic human immunodeficiency virus [HIV] infection status; D64.9 Anemia, unspecified; E03.9 Hypothyroidism, unspecified; I10 Essential (primary) hypertension; M41.9 Scoliosis, unspecified; F32.A Depression, unspecified; R91.1 Solitary pulmonary nodule; K59.00 Constipation, unspecified; E78.5 Hyperlipidemia, unspecified; Z93.0 Tracheostomy status; Z85.21 Personal history of malignant neoplasm of larynx; Z88.1 Allergy status to other antibiotic agents; Z99.81 Dependence on supplemental oxygen
CPT/HCPCS: 36415; 36600; 71045-TC-FY; 71250-TC; 71275-TC; 80048; 80053; 81003; 82803; 82962; 83615; 83735; 83880; 84100; 84484; 85025; 85379; 85610; 85730; 87040; 87070; 87077; 87186; 87205; 87449; 87804; 93005; 93010; 94002; 94640; 97116-GP; 97161-GP; 99285-25; C9803-CS; Q9967; U0003; U0005

== ENCOUNTER 2022-01-06 11:47 | Inpatient (IN) | payer OTHER ==
[2022-01-06 12:30] VITALS: BMI 33.0
[2022-01-06] MEDS ORDERED: LACTATED RINGERS SOLUTION 1000 ML INFUS.BAG IV ONE (12:40)
[2022-01-06 13:47] LABS: BASO % 0.5 % (0-2.0); EOS % 0.8 % (0-4.5); HEMATOCRIT 31.8 % (32.4-45.2); HEMOGLOBIN 9.6 GM/dL (10.7-15.3); LYMPH % 13.6 % (8-40); MCH 27.3 pg (25.7-33.7); MCHC 30.3 g/dl (32.0-36.0); MEAN CELL VOLUME 90.1 fl (80-96); MEAN PLT VOLUME 7.7 fl (7.5-11.1); NEUT % 81.1 % (42.8-82.8); PLATELET COUNT 257 10^3/uL (134-434); RBC 3.53 M/mm3 (3.60-5.2); RDW 17.3 % (11.6-15.6); WHITE BLOOD COUNT 8.5 K/mm3 (4.0-10.0)
[2022-01-06 13:54] LABS: INR 1.09 (0.83-1.09); PROTHROMBIN TIME (PATIENT) 12.5 SEC (9.7-13.0)
[2022-01-06 13:57] LABS: ACTIVATED PTT 30.5 SECONDS (25.2-36.5); VENOUS O2 SATURATION 17.3 % (70-80); VENOUS PCO2 68.6 mmHg (38-52); VENOUS PH 7.386 (7.310-7.410)
[2022-01-06 14:13] LABS: CHLORIDE 106 mmol/L (98-107); SODIUM 152 mmol/L (136-145)
[2022-01-06 14:14] LABS: GLUCOSE,RANDOM 120 mg/dL (74-106)
[2022-01-06 14:15] LABS: ALBUMIN 2.8 g/dl (3.4-5.0); ANION GAP 9 MMOL/L (8-16); BLOOD UREA NITROGEN 10.1 mg/dL (7-18); CALCIUM 8.9 mg/dL (8.5-10.1); CO2 38 mmol/L (21-32)
[2022-01-06 14:18] LABS: SGPT/ALT 11 U/L (13-61)
[2022-01-06 14:19] LABS: CREATININE 0.9 mg/dL (0.55-1.3); SGOT/AST 22 U/L (15-37)
[2022-01-06] MEDS ORDERED: VANCOMYCIN 1 GM in D5W (PRE-DOCKED) 1,000 MG/250 ML IVPB ONE (14:19)
[2022-01-06] MEDS ORDERED: PIPERACILLIN/TAZOB 3.375 GM 3.375 GM in DEXTROSE 5%-WATER - 50 ML IVPB ONE (14:19)
[2022-01-06 14:20] LABS: BILIRUBIN,TOTAL 0.3 mg/dL (0.2-1); TOT PROT 6.7 g/dl (6.4-8.2)
[2022-01-06 14:21] LABS: ALK PHOS 82 U/L (45-117)
[2022-01-06 14:24] LABS: LACTIC ACID 2.3 mmol/L (0.4-2.0)
[2022-01-06] MEDS ORDERED: CEFEPIME 0.5 GM in DEXTROSE 5%-WATER - 100 ML IVPB ONE (14:24)
[2022-01-06] MEDS ORDERED: POTASSIUM CHLORIDE ORAL LIQUID 20 MEQ/15 ML PO ONE (14:38)
[2022-01-06] MEDS ORDERED: POTASSIUM CHLORIDE ORAL LIQUID 20 MEQ/15 ML ONE (14:55)
[2022-01-06] MEDS ORDERED: VANCOMYCIN 1 GRAM (PRE-DOCKED) 1,000 MG/250 ML BAG IVPB ONE (14:56)
[2022-01-06] MEDS ORDERED: POTASSIUM CHLORIDE TABS 20 MEQ TABLET.ER (FP) PO ONE ×2 (15:39→16:00)
[2022-01-06] MEDS ORDERED: POLYETHYLENE GLYCOL (HEALTHYLAX) 3350 17 GM PACKET PO PRN (18:41)
[2022-01-06] MEDS ORDERED: DEXTROSE 5%-WATER - 1,000 ML IV SCH (19:00)
[2022-01-06 19:17] LABS: URINE APPEARANCE CLEAR; URINE BILIRUBIN NEGATIVE (NEGATIVE); URINE COLOR YELLOW; URINE GLUCOSE (UA) NEGATIVE (NEGATIVE); URINE KETONE NEGATIVE (NEGATIVE); URINE LEUK ESTERASE NEGATIVE (NEGATIVE); URINE NITRITE NEGATIVE (NEGATIVE); URINE PROTEIN NEGATIVE (NEGATIVE); URINE UROBILINOGEN 0.2 mg/dL (0.2-1.0)
[2022-01-06] MEDS ORDERED: MEROPENEM 1 GM in DEXTROSE 5%-WATER 100 ML IVPB SCH (19:45)
[2022-01-06] MEDS ORDERED: guaiFENesin/D-M SUGAR-FREE/ACLHOL-FREE 118 ML BOTTLE PO PRN (19:49)
[2022-01-06] MEDS ORDERED: MEROPENEM 1 GM VIAL (RESTRICTED TO ID) IVPB ONE (21:38)
[2022-01-06] MEDS: MEROPENEM 1 GM in DEXTROSE 5%-WATER 100 ML IVPB SCH (21:50)
[2022-01-06] MEDS ORDERED: ALBUTEROL SO4 2.5/IPRATROPIUM 0.5 INH SOL 3 ML VIAL.NEB. NEB ONE ×2 (21:51→21:56)
[2022-01-06] MEDS: ALBUTEROL SO4 2.5/IPRATROPIUM 0.5 INH SOL 3 ML VIAL.NEB. NEB PRN (22:01)
[2022-01-07] MEDS ORDERED: DEXTROSE 5%-WATER 100 ML IVPB ONE ×2 (01:01→10:12)
[2022-01-07] MEDS ORDERED: MEROPENEM 1 GM VIAL (RESTRICTED TO ID) IVPB ONE ×2 (01:01→10:12)
[2022-01-07] MEDS: MEROPENEM 1 GM in DEXTROSE 5%-WATER 100 ML IVPB SCH ×2 (01:04→10:37)
[2022-01-07] MEDS ORDERED: VANCOMYCIN 1 GM/200 ML PREMIX BAG IVPB SCH (05:00)
[2022-01-07] MEDS ORDERED: VANCOMYCIN 1 GM in D5W (PRE-DOCKED) 1,000 MG/250 ML IVPB SCH (05:00)
[2022-01-07] MEDS: LEVOTHYROXINE NA 125 MCG TABLET (FP) PO SCH (06:28)
[2022-01-07] MEDS: ALBUTEROL SO4 2.5/IPRATROPIUM 0.5 INH SOL 3 ML VIAL.NEB. NEB PRN ×2 (08:23→15:08)
[2022-01-07 09:03] LABS: BASO % 0.9 % (0-2.0); HEMATOCRIT 29.3 % (32.4-45.2); MCH 27.6 pg (25.7-33.7); MCHC 30.8 g/dl (32.0-36.0); MEAN CELL VOLUME 89.8 fl (80-96); MEAN PLT VOLUME 8.3 fl (7.5-11.1); MONO % 6.1 % (3.8-10.2); PLATELET COUNT 240 10^3/uL (134-434); RBC 3.26 M/mm3 (3.60-5.2); RDW 17.3 % (11.6-15.6)
[2022-01-07 09:32] LABS: ALBUMIN 2.4 g/dl (3.4-5.0); CALCIUM 8.6 mg/dL (8.5-10.1); MAGNESIUM 1.9 mg/dL (1.8-2.4)
[2022-01-07 09:35] LABS: CREATININE 0.7 mg/dL (0.55-1.3); PHOSPHOROUS 3.7 mg/dL (2.5-4.9)
[2022-01-07 09:37] LABS: BILIRUBIN,TOTAL 0.3 mg/dL (0.2-1); TOT PROT 5.9 g/dl (6.4-8.2)
[2022-01-07] MEDS: metoPROLOL SUCCINATE 25 MG TAB.SR.24H (FP) PO SCH (10:36)
[2022-01-07] MEDS: FERROUS SO4 325 MG TABLET (FP) PO SCH (10:36)
[2022-01-07] MEDS: FOLIC ACID 1 MG TABLET (FP) PO SCH (10:36)
[2022-01-07] MEDS: POTASSIUM CHLORIDE TABS 20 MEQ TABLET.ER (FP) PO SCH (10:36)
[2022-01-07] MEDS: ENOXAPARIN NA (PORCINE) 40 MG/0.4 ML DISP.SYRIN SQ SCH (10:37)
[2022-01-07] MEDS: amLODIPine BESYLATE 5 MG TABLET (FP) PO SCH (10:38)
[2022-01-07] MEDS ORDERED: POTASSIUM CHLORIDE ORAL LIQUID 20 MEQ/15 ML PO ONE (11:13)
[2022-01-07] MEDS ORDERED: PATIENT'S OWN MEDICATION (NON-FORMULARY) (Methadone Hcl [Methadone Hcl] 10 MG/ML Oral.Conc PO SCH (11:45)
[2022-01-07] MEDS: ABACAVIR/DOLUTEGRAVIR/LAMIVUDI (TRIUMEQ) TABLET -NF PO SCH (13:05)
[2022-01-07] MEDS: FUROSEMIDE 40 MG TABLET (FP) PO SCH (13:05)
[2022-01-07] MEDS: AZITHROMYCIN IVPB 500 MG/250 ML BAG IVPB SCH (13:06)
[2022-01-07] MEDS ORDERED: POTASSIUM CHLORIDE TABS 20 MEQ TABLET.ER (FP) PO ONE (13:30)
[2022-01-07] MEDS: methaDONE HCL 40 MG DISPERSABLE TABLET PO SCH (15:29)
[2022-01-07] MEDS ORDERED: CEFEPIME HCL 1 GM VIAL (RESTRICTED TO ID) ONE (17:18)
[2022-01-07] MEDS ORDERED: DEXTROSE 5%-WATER - 50 ML IVPB ONE (17:19)
[2022-01-07] MEDS: methylPREDNISolone NA SUCC 40 MG/1 ML VIAL IVPUSH SCH (18:29)
[2022-01-07] MEDS: NYSTATIN 100,000 UNIT/GM TOPICAL CREAM 15 GM TUBE TP SCH ×2 (18:29→21:23)
[2022-01-07] MEDS: CEFEPIME 1 GM in DEXTROSE 5%-WATER - 50 ML IVPB SCH (18:29)
[2022-01-07] MEDS: ATORVASTATIN CA 10 MG TABLET (FP) PO SCH (21:23)
[2022-01-07] MEDS: MONTELUKAST NA 10 MG TABLET PO SCH (21:23)
[2022-01-08] MEDS ORDERED: CEFEPIME HCL 1 GM VIAL (RESTRICTED TO ID) ONE ×3 (02:13→17:06)
[2022-01-08] MEDS ORDERED: DEXTROSE 5%-WATER - 50 ML IVPB ONE ×3 (02:13→17:06)
[2022-01-08] MEDS: CEFEPIME 1 GM in DEXTROSE 5%-WATER - 50 ML IVPB SCH ×3 (02:17→17:22)
[2022-01-08] MEDS: methylPREDNISolone NA SUCC 40 MG/1 ML VIAL IVPUSH SCH ×3 (02:17→17:22)
[2022-01-08] MEDS: VANCOMYCIN 1 GM/200 ML PREMIX BAG IVPB SCH (06:24)
[2022-01-08] MEDS: methaDONE HCL 40 MG DISPERSABLE TABLET PO SCH (06:28)
[2022-01-08] MEDS: LEVOTHYROXINE NA 125 MCG TABLET (FP) PO SCH (06:28)
[2022-01-08 06:58] LABS: HEMATOCRIT 29.4 % (32.4-45.2); MCH 27.5 pg (25.7-33.7); MCHC 30.6 g/dl (32.0-36.0); MEAN CELL VOLUME 89.9 fl (80-96); MEAN PLT VOLUME 8.4 fl (7.5-11.1); PLATELET COUNT 267 10^3/uL (134-434); RBC 3.27 M/mm3 (3.60-5.2); WHITE BLOOD COUNT 7.9 K/mm3 (4.0-10.0)
[2022-01-08 07:26] LABS: BLOOD UREA NITROGEN 7.9 mg/dL (7-18); CALCIUM 8.6 mg/dL (8.5-10.1)
[2022-01-08 07:27] LABS: ALBUMIN 2.6 g/dl (3.4-5.0); MAGNESIUM 1.8 mg/dL (1.8-2.4)
[2022-01-08 07:30] LABS: CREATININE 0.9 mg/dL (0.55-1.3)
[2022-01-08 07:31] LABS: BILIRUBIN,TOTAL 0.4 mg/dL (0.2-1); TOT PROT 6.3 g/dl (6.4-8.2)
[2022-01-08] MEDS: ALBUTEROL SO4 2.5/IPRATROPIUM 0.5 INH SOL 3 ML VIAL.NEB. NEB PRN (08:20)
[2022-01-08] MEDS: ENOXAPARIN NA (PORCINE) 40 MG/0.4 ML DISP.SYRIN SQ SCH (09:21)
[2022-01-08] MEDS: POTASSIUM CHLORIDE TABS 20 MEQ TABLET.ER (FP) PO SCH (09:22)
[2022-01-08] MEDS: amLODIPine BESYLATE 5 MG TABLET (FP) PO SCH (09:22)
[2022-01-08] MEDS: metoPROLOL SUCCINATE 25 MG TAB.SR.24H (FP) PO SCH (09:22)
[2022-01-08] MEDS: FERROUS SO4 325 MG TABLET (FP) PO SCH (09:22)
[2022-01-08] MEDS: FOLIC ACID 1 MG TABLET (FP) PO SCH (09:22)
[2022-01-08] MEDS: FUROSEMIDE 40 MG TABLET (FP) PO SCH (09:22)
[2022-01-08] MEDS: ABACAVIR/DOLUTEGRAVIR/LAMIVUDI (TRIUMEQ) TABLET -NF PO SCH (09:22)
[2022-01-08] MEDS: NYSTATIN 100,000 UNIT/GM TOPICAL CREAM 15 GM TUBE TP SCH ×2 (09:23→21:29)
[2022-01-08 10:14] LABS: ANISOCYTOSIS 0; HELMET CELLS 0; HOWELL-JOLLY BODIES 0; MACROCYTOSIS 0; OVALOCYTE 0; ROULEAU 0; SICKELED CELLS 0; TARGET CELLS 0; TEAR DROP CELLS 0; TOXIC GRANULATION 0
[2022-01-08] MEDS: AZITHROMYCIN IVPB 500 MG/250 ML BAG IVPB SCH (10:58)
[2022-01-08] MEDS: FAMOTIDINE 40 MG/5 ML ORAL SUSPENSION PEG SCH (10:58)
[2022-01-08] MEDS: ATORVASTATIN CA 10 MG TABLET (FP) PO SCH (21:24)
[2022-01-08] MEDS: MONTELUKAST NA 10 MG TABLET PO SCH (21:24)
[2022-01-09] MEDS ORDERED: CEFEPIME HCL 1 GM VIAL (RESTRICTED TO ID) ONE ×3 (00:49→16:06)
[2022-01-09] MEDS ORDERED: DEXTROSE 5%-WATER - 50 ML IVPB ONE ×3 (00:49→16:06)
[2022-01-09] MEDS: methylPREDNISolone NA SUCC 40 MG/1 ML VIAL IVPUSH SCH ×3 (01:11→17:22)
[2022-01-09] MEDS: CEFEPIME 1 GM in DEXTROSE 5%-WATER - 50 ML IVPB SCH ×3 (01:11→17:22)
[2022-01-09] MEDS: methaDONE HCL 40 MG DISPERSABLE TABLET PO SCH (05:33)
[2022-01-09] MEDS: VANCOMYCIN 1 GM/200 ML PREMIX BAG IVPB SCH (05:33)
[2022-01-09] MEDS: LEVOTHYROXINE NA 125 MCG TABLET (FP) PO SCH (06:29)
[2022-01-09 07:21] LABS: HEMATOCRIT 30.5 % (32.4-45.2); HEMOGLOBIN 9.5 GM/dL (10.7-15.3); MCHC 31.1 g/dl (32.0-36.0); MEAN CELL VOLUME 89.9 fl (80-96); RDW 17.5 % (11.6-15.6); WHITE BLOOD COUNT 11.5 K/mm3 (4.0-10.0)
[2022-01-09 07:22] LABS: MEAN PLT VOLUME 7.9 fl (7.5-11.1); PLATELET COUNT 280 10^3/uL (134-434)
[2022-01-09 07:45] LABS: MAGNESIUM 1.9 mg/dL (1.8-2.4)
[2022-01-09 07:46] LABS: CALCIUM 8.8 mg/dL (8.5-10.1)
[2022-01-09 07:47] LABS: ALBUMIN 2.7 g/dl (3.4-5.0)
[2022-01-09 07:49] LABS: BILIRUBIN,TOTAL 0.5 mg/dL (0.2-1); CREATININE 0.9 mg/dL (0.55-1.3)
[2022-01-09 07:51] LABS: TOT PROT 6.6 g/dl (6.4-8.2)
[2022-01-09] MEDS: ENOXAPARIN NA (PORCINE) 40 MG/0.4 ML DISP.SYRIN SQ SCH (10:17)
[2022-01-09] MEDS: FAMOTIDINE 40 MG/5 ML ORAL SUSPENSION PEG SCH (10:18)
[2022-01-09] MEDS: ABACAVIR/DOLUTEGRAVIR/LAMIVUDI (TRIUMEQ) TABLET -NF PO SCH (10:18)
[2022-01-09] MEDS: FERROUS SO4 325 MG TABLET (FP) PO SCH (10:18)
[2022-01-09] MEDS: metoPROLOL SUCCINATE 25 MG TAB.SR.24H (FP) PO SCH (10:18)
[2022-01-09] MEDS: FOLIC ACID 1 MG TABLET (FP) PO SCH (10:18)
[2022-01-09] MEDS: amLODIPine BESYLATE 5 MG TABLET (FP) PO SCH ×2 (10:18→10:30)
[2022-01-09] MEDS: POTASSIUM CHLORIDE TABS 20 MEQ TABLET.ER (FP) PO SCH (10:18)
[2022-01-09] MEDS: FUROSEMIDE 40 MG TABLET (FP) PO SCH (10:18)
[2022-01-09] MEDS: NYSTATIN 100,000 UNIT/GM TOPICAL CREAM 15 GM TUBE TP SCH ×2 (10:19→21:43)
[2022-01-09] MEDS: AZITHROMYCIN IVPB 500 MG/250 ML BAG IVPB SCH (10:19)
[2022-01-09 12:00] LABS: ANISOCYTOSIS 2+; MACROCYTOSIS 0
[2022-01-09] MEDS: ATORVASTATIN CA 10 MG TABLET (FP) PO SCH (21:39)
[2022-01-09] MEDS: MONTELUKAST NA 10 MG TABLET PO SCH (21:39)
[2022-01-10] MEDS ORDERED: CEFEPIME HCL 1 GM VIAL (RESTRICTED TO ID) ONE ×3 (00:48→18:08)
[2022-01-10] MEDS ORDERED: DEXTROSE 5%-WATER - 50 ML IVPB ONE ×3 (00:48→18:09)
[2022-01-10] MEDS: CEFEPIME 1 GM in DEXTROSE 5%-WATER - 50 ML IVPB SCH ×3 (01:41→18:13)
[2022-01-10] MEDS: methylPREDNISolone NA SUCC 40 MG/1 ML VIAL IVPUSH SCH ×3 (01:41→18:13)
[2022-01-10] MEDS: methaDONE HCL 40 MG DISPERSABLE TABLET PO SCH (05:48)
[2022-01-10] MEDS: LEVOTHYROXINE NA 125 MCG TABLET (FP) PO SCH (06:15)
[2022-01-10] MEDS: VANCOMYCIN 1 GM/200 ML PREMIX BAG IVPB SCH (07:49)
[2022-01-10 08:08] LABS: HEMATOCRIT 31.3 % (32.4-45.2); HEMOGLOBIN 9.3 GM/dL (10.7-15.3); MCH 27.2 pg (25.7-33.7); MCHC 29.7 g/dl (32.0-36.0); MEAN CELL VOLUME 91.6 fl (80-96); MEAN PLT VOLUME 8.4 fl (7.5-11.1); PLATELET COUNT 318 10^3/uL (134-434); RBC 3.42 M/mm3 (3.60-5.2); RDW 17.5 % (11.6-15.6); WHITE BLOOD COUNT 12.9 K/mm3 (4.0-10.0)
[2022-01-10 08:12] LABS: ALBUMIN 2.9 g/dl (3.4-5.0); BLOOD UREA NITROGEN 15.3 mg/dL (7-18); CALCIUM 8.7 mg/dL (8.5-10.1); MAGNESIUM 2.1 mg/dL (1.8-2.4)
[2022-01-10 08:15] LABS: CREATININE 0.9 mg/dL (0.55-1.3)
[2022-01-10 08:17] LABS: BILIRUBIN,TOTAL 0.2 mg/dL (0.2-1); TOT PROT 6.9 g/dl (6.4-8.2)
[2022-01-10] MEDS: ENOXAPARIN NA (PORCINE) 40 MG/0.4 ML DISP.SYRIN SQ SCH (09:46)
[2022-01-10] MEDS: amLODIPine BESYLATE 5 MG TABLET (FP) PO SCH (09:47)
[2022-01-10] MEDS: FERROUS SO4 325 MG TABLET (FP) PO SCH (09:47)
[2022-01-10] MEDS: FOLIC ACID 1 MG TABLET (FP) PO SCH (09:47)
[2022-01-10] MEDS: metoPROLOL SUCCINATE 25 MG TAB.SR.24H (FP) PO SCH (09:47)
[2022-01-10] MEDS: FUROSEMIDE 40 MG TABLET (FP) PO SCH (09:47)
[2022-01-10] MEDS: POTASSIUM CHLORIDE TABS 20 MEQ TABLET.ER (FP) PO SCH (09:47)
[2022-01-10] MEDS: NYSTATIN 100,000 UNIT/GM TOPICAL CREAM 15 GM TUBE TP SCH ×2 (09:48→21:40)
[2022-01-10] MEDS: ABACAVIR/DOLUTEGRAVIR/LAMIVUDI (TRIUMEQ) TABLET -NF PO SCH (09:50)
[2022-01-10] MEDS: FAMOTIDINE 40 MG/5 ML ORAL SUSPENSION PEG SCH (09:50)
[2022-01-10] MEDS: AZITHROMYCIN IVPB 500 MG/250 ML BAG IVPB SCH (09:51)
[2022-01-10 11:46] LABS: ANISOCYTOSIS 2+; MACROCYTOSIS 0; TEAR DROP CELLS 1+
[2022-01-10] MEDS: MONTELUKAST NA 10 MG TABLET PO SCH (21:40)
[2022-01-10] MEDS: ATORVASTATIN CA 10 MG TABLET (FP) PO SCH (21:40)
[2022-01-11] MEDS ORDERED: DEXTROSE 5%-WATER - 50 ML IVPB ONE ×3 (01:13→17:51)
[2022-01-11] MEDS ORDERED: CEFEPIME HCL 1 GM VIAL (RESTRICTED TO ID) ONE ×3 (01:13→17:50)
[2022-01-11] MEDS: methylPREDNISolone NA SUCC 40 MG/1 ML VIAL IVPUSH SCH ×3 (01:17→18:04)
[2022-01-11] MEDS: CEFEPIME 1 GM in DEXTROSE 5%-WATER - 50 ML IVPB SCH ×3 (01:20→18:01)
[2022-01-11] MEDS: methaDONE HCL 40 MG DISPERSABLE TABLET PO SCH (06:04)
[2022-01-11] MEDS: LEVOTHYROXINE NA 125 MCG TABLET (FP) PO SCH (06:04)
[2022-01-11 08:22] LABS: BASO % 0.1 % (0-2.0); HEMATOCRIT 30.9 % (32.4-45.2); HEMOGLOBIN 9.4 GM/dL (10.7-15.3); LYMPH % 7.7 % (8-40); MCH 27.5 pg (25.7-33.7); MCHC 30.5 g/dl (32.0-36.0); MEAN CELL VOLUME 90.2 fl (80-96); MEAN PLT VOLUME 8.1 fl (7.5-11.1); MONO % 3.1 % (3.8-10.2); NEUT % 89.1 % (42.8-82.8); PLATELET COUNT 277 10^3/uL (134-434); RBC 3.43 M/mm3 (3.60-5.2); RDW 17.4 % (11.6-15.6); WHITE BLOOD COUNT 9.7 K/mm3 (4.0-10.0)
[2022-01-11 08:41] LABS: CALCIUM 8.7 mg/dL (8.5-10.1)
[2022-01-11 08:42] LABS: ALBUMIN 2.7 g/dl (3.4-5.0); BLOOD UREA NITROGEN 20.3 mg/dL (7-18); MAGNESIUM 2.2 mg/dL (1.8-2.4)
[2022-01-11 08:45] LABS: CREATININE 0.9 mg/dL (0.55-1.3)
[2022-01-11 08:46] LABS: BILIRUBIN,TOTAL 0.2 mg/dL (0.2-1); TOT PROT 6.6 g/dl (6.4-8.2)
[2022-01-11] MEDS ORDERED: POTASSIUM CHLORIDE TABS 20 MEQ TABLET.ER (FP) PO ONE (08:55)
[2022-01-11] MEDS: ENOXAPARIN NA (PORCINE) 40 MG/0.4 ML DISP.SYRIN SQ SCH (09:08)
[2022-01-11] MEDS: FAMOTIDINE 40 MG/5 ML ORAL SUSPENSION PEG SCH (09:08)
[2022-01-11] MEDS: ABACAVIR/DOLUTEGRAVIR/LAMIVUDI (TRIUMEQ) TABLET -NF PO SCH (09:09)
[2022-01-11] MEDS: amLODIPine BESYLATE 5 MG TABLET (FP) PO SCH (09:09)
[2022-01-11] MEDS: metoPROLOL SUCCINATE 25 MG TAB.SR.24H (FP) PO SCH (09:09)
[2022-01-11] MEDS: FOLIC ACID 1 MG TABLET (FP) PO SCH (09:10)
[2022-01-11] MEDS: FUROSEMIDE 40 MG TABLET (FP) PO SCH (09:10)
[2022-01-11] MEDS: FERROUS SO4 325 MG TABLET (FP) PO SCH (09:10)
[2022-01-11] MEDS: NYSTATIN 100,000 UNIT/GM TOPICAL CREAM 15 GM TUBE TP SCH ×2 (09:18→21:29)
[2022-01-11] MEDS: POTASSIUM CHLORIDE TABS 20 MEQ TABLET.ER (FP) PO SCH (09:48)
[2022-01-11] MEDS: AZITHROMYCIN IVPB 500 MG/250 ML BAG IVPB SCH (09:49)
[2022-01-11] MEDS: ATORVASTATIN CA 10 MG TABLET (FP) PO SCH (21:24)
[2022-01-11] MEDS: MONTELUKAST NA 10 MG TABLET PO SCH (21:29)
[2022-01-12] MEDS ORDERED: CEFEPIME HCL 1 GM VIAL (RESTRICTED TO ID) ONE ×3 (01:00→17:29)
[2022-01-12] MEDS ORDERED: DEXTROSE 5%-WATER - 50 ML IVPB ONE ×3 (01:00→17:29)
[2022-01-12] MEDS: methylPREDNISolone NA SUCC 40 MG/1 ML VIAL IVPUSH SCH ×2 (01:40→09:31)
[2022-01-12] MEDS: CEFEPIME 1 GM in DEXTROSE 5%-WATER - 50 ML IVPB SCH ×3 (01:40→17:32)
[2022-01-12] MEDS: methaDONE HCL 40 MG DISPERSABLE TABLET PO SCH (05:39)
[2022-01-12] MEDS: LEVOTHYROXINE NA 125 MCG TABLET (FP) PO SCH (06:03)
[2022-01-12 08:59] LABS: HEMATOCRIT 32.7 % (32.4-45.2); HEMOGLOBIN 9.9 GM/dL (10.7-15.3); LYMPH % 9.8 % (8-40); MCH 27.4 pg (25.7-33.7); MCHC 30.3 g/dl (32.0-36.0); MEAN CELL VOLUME 90.5 fl (80-96); MEAN PLT VOLUME 8.2 fl (7.5-11.1); MONO % 3.2 % (3.8-10.2); PLATELET COUNT 281 10^3/uL (134-434); RBC 3.61 M/mm3 (3.60-5.2); RDW 17.2 % (11.6-15.6)
[2022-01-12] MEDS: ENOXAPARIN NA (PORCINE) 40 MG/0.4 ML DISP.SYRIN SQ SCH (09:26)
[2022-01-12] MEDS: FERROUS SO4 325 MG TABLET (FP) PO SCH (09:27)
[2022-01-12] MEDS: metoPROLOL SUCCINATE 25 MG TAB.SR.24H (FP) PO SCH (09:27)
[2022-01-12] MEDS: FOLIC ACID 1 MG TABLET (FP) PO SCH (09:27)
[2022-01-12] MEDS: POTASSIUM CHLORIDE TABS 20 MEQ TABLET.ER (FP) PO SCH (09:27)
[2022-01-12] MEDS: FUROSEMIDE 40 MG TABLET (FP) PO SCH (09:27)
[2022-01-12] MEDS: amLODIPine BESYLATE 5 MG TABLET (FP) PO SCH (09:27)
[2022-01-12 09:28] LABS: CHLORIDE 94 mmol/L (98-107); SODIUM 144 mmol/L (136-145)
[2022-01-12] MEDS: AZITHROMYCIN IVPB 500 MG/250 ML BAG IVPB SCH (09:28)
[2022-01-12] MEDS: ABACAVIR/DOLUTEGRAVIR/LAMIVUDI (TRIUMEQ) TABLET -NF PO SCH (09:30)
[2022-01-12 09:49] LABS: ALBUMIN 2.8 g/dl (3.4-5.0); BLOOD UREA NITROGEN 19.9 mg/dL (7-18); CALCIUM 8.7 mg/dL (8.5-10.1); GLUCOSE,RANDOM 95 mg/dL (74-106); MAGNESIUM 2.1 mg/dL (1.8-2.4)
[2022-01-12 09:51] LABS: CREATININE 0.8 mg/dL (0.55-1.3); SGPT/ALT 11 U/L (13-61)
[2022-01-12 09:52] LABS: SGOT/AST 16 U/L (15-37)
[2022-01-12 09:53] LABS: BILIRUBIN,TOTAL 0.3 mg/dL (0.2-1); TOT PROT 6.2 g/dl (6.4-8.2)
[2022-01-12 09:54] LABS: ALK PHOS 65 U/L (45-117); ANION GAP 5 MMOL/L (8-16); CO2 > 45 mmol/L (21-32)
[2022-01-12] MEDS: NYSTATIN 100,000 UNIT/GM TOPICAL CREAM 15 GM TUBE TP SCH ×2 (11:25→22:07)
[2022-01-12] MEDS: FAMOTIDINE 40 MG/5 ML ORAL SUSPENSION PEG SCH (11:28)
[2022-01-12] MEDS ORDERED: POTASSIUM CHLORIDE TABS 20 MEQ TABLET.ER (FP) PO ONE (13:30)
[2022-01-12] MEDS: ATORVASTATIN CA 10 MG TABLET (FP) PO SCH (22:07)
[2022-01-12] MEDS: MONTELUKAST NA 10 MG TABLET PO SCH (22:07)
[2022-01-13] MEDS ORDERED: CEFEPIME HCL 1 GM VIAL (RESTRICTED TO ID) ONE ×2 (02:00→10:22)
[2022-01-13] MEDS ORDERED: DEXTROSE 5%-WATER - 50 ML IVPB ONE ×2 (02:01→10:22)
[2022-01-13] MEDS: CEFEPIME 1 GM in DEXTROSE 5%-WATER - 50 ML IVPB SCH ×2 (02:19→10:28)
[2022-01-13] MEDS: methaDONE HCL 40 MG DISPERSABLE TABLET PO SCH (06:23)
[2022-01-13] MEDS: LEVOTHYROXINE NA 125 MCG TABLET (FP) PO SCH (06:23)
[2022-01-13 09:25] LABS: BASO % 0.1 % (0-2.0); EOS % 0.1 % (0-4.5); HEMATOCRIT 31.7 % (32.4-45.2); LYMPH % 21.1 % (8-40); MCH 28.3 pg (25.7-33.7); MCHC 31.5 g/dl (32.0-36.0); MEAN CELL VOLUME 89.9 fl (80-96); MONO % 9.7 % (3.8-10.2); PLATELET COUNT 282 10^3/uL (134-434); RBC 3.53 M/mm3 (3.60-5.2); RDW 17.4 % (11.6-15.6); WHITE BLOOD COUNT 10.6 K/mm3 (4.0-10.0)
[2022-01-13 10:03] LABS: ALBUMIN 2.6 g/dl (3.4-5.0); BLOOD UREA NITROGEN 21.1 mg/dL (7-18); CALCIUM 8.5 mg/dL (8.5-10.1); MAGNESIUM 2.2 mg/dL (1.8-2.4)
[2022-01-13 10:06] LABS: CREATININE 0.9 mg/dL (0.55-1.3)
[2022-01-13 10:08] LABS: TOT PROT 5.9 g/dl (6.4-8.2)
[2022-01-13 10:09] LABS: BILIRUBIN,TOTAL 0.2 mg/dL (0.2-1)
[2022-01-13] MEDS: FERROUS SO4 325 MG TABLET (FP) PO SCH (10:26)
[2022-01-13] MEDS: FUROSEMIDE 40 MG TABLET (FP) PO SCH (10:26)
[2022-01-13] MEDS: metoPROLOL SUCCINATE 25 MG TAB.SR.24H (FP) PO SCH (10:27)
[2022-01-13] MEDS: ENOXAPARIN NA (PORCINE) 40 MG/0.4 ML DISP.SYRIN SQ SCH (10:27)
[2022-01-13] MEDS: amLODIPine BESYLATE 5 MG TABLET (FP) PO SCH (10:27)
[2022-01-13] MEDS: FOLIC ACID 1 MG TABLET (FP) PO SCH (10:27)
[2022-01-13] MEDS: POTASSIUM CHLORIDE TABS 20 MEQ TABLET.ER (FP) PO SCH (10:27)
[2022-01-13] MEDS: ABACAVIR/DOLUTEGRAVIR/LAMIVUDI (TRIUMEQ) TABLET -NF PO SCH (10:29)
[2022-01-13] MEDS: FAMOTIDINE 40 MG/5 ML ORAL SUSPENSION PEG SCH (10:29)
[2022-01-13] MEDS: AZITHROMYCIN IVPB 500 MG/250 ML BAG IVPB SCH (10:30)
[2022-01-13] MEDS: NYSTATIN 100,000 UNIT/GM TOPICAL CREAM 15 GM TUBE TP SCH ×2 (10:33→22:10)
[2022-01-13] MEDS: methylPREDNISolone NA SUCC 40 MG/1 ML VIAL IVPUSH SCH (10:40)
[2022-01-13] MEDS ORDERED: POTASSIUM CHLORIDE TABS 20 MEQ TABLET.ER (FP) PO SCH (12:00)
[2022-01-13] MEDS ORDERED: POTASSIUM CHLORIDE TABS 20 MEQ TABLET.ER (FP) PO ONE (13:15)
[2022-01-13] MEDS: MONTELUKAST NA 10 MG TABLET PO SCH (22:08)
[2022-01-13] MEDS: ATORVASTATIN CA 10 MG TABLET (FP) PO SCH (22:08)
[2022-01-14] MEDS: LEVOTHYROXINE NA 125 MCG TABLET (FP) PO SCH (06:17)
[2022-01-14] MEDS: methaDONE HCL 40 MG DISPERSABLE TABLET PO SCH (06:18)
[2022-01-14 08:51] LABS: BASO % 0.2 % (0-2.0); EOS % 0.2 % (0-4.5); HEMATOCRIT 33.7 % (32.4-45.2); HEMOGLOBIN 10.5 GM/dL (10.7-15.3); LYMPH % 19.1 % (8-40); MCH 28.2 pg (25.7-33.7); MCHC 31.2 g/dl (32.0-36.0); MEAN CELL VOLUME 90.4 fl (80-96); MONO % 7.6 % (3.8-10.2); NEUT % 72.9 % (42.8-82.8); PLATELET COUNT 275 10^3/uL (134-434); RBC 3.72 M/mm3 (3.60-5.2); RDW 17.2 % (11.6-15.6); WHITE BLOOD COUNT 9.6 K/mm3 (4.0-10.0)
[2022-01-14 09:14] LABS: CHLORIDE 91 mmol/L (98-107); SODIUM 142 mmol/L (136-145)
[2022-01-14 09:26] LABS: ALBUMIN 2.8 g/dl (3.4-5.0); BLOOD UREA NITROGEN 20.7 mg/dL (7-18); CALCIUM 8.7 mg/dL (8.5-10.1); GLUCOSE,RANDOM 73 mg/dL (74-106); MAGNESIUM 2.1 mg/dL (1.8-2.4)
[2022-01-14 09:30] LABS: CREATININE 0.7 mg/dL (0.55-1.3); SGOT/AST 20 U/L (15-37); SGPT/ALT 12 U/L (13-61)
[2022-01-14 09:31] LABS: TOT PROT 6.2 g/dl (6.4-8.2)
[2022-01-14 09:32] LABS: BILIRUBIN,TOTAL 0.4 mg/dL (0.2-1)
[2022-01-14 09:33] LABS: ALK PHOS 63 U/L (45-117); ANION GAP 6 MMOL/L (8-16); CO2 > 45 mmol/L (21-32)
[2022-01-14] MEDS ORDERED: predniSONE 20 MG TABLET (UD) PO SCH (10:00)
[2022-01-14] MEDS: FERROUS SO4 325 MG TABLET (FP) PO SCH (10:43)
[2022-01-14] MEDS: FUROSEMIDE 40 MG TABLET (FP) PO SCH (10:44)
[2022-01-14] MEDS: metoPROLOL SUCCINATE 25 MG TAB.SR.24H (FP) PO SCH (10:44)
[2022-01-14] MEDS: FOLIC ACID 1 MG TABLET (FP) PO SCH (10:44)
[2022-01-14] MEDS: POTASSIUM CHLORIDE TABS 20 MEQ TABLET.ER (FP) PO SCH (10:44)
[2022-01-14] MEDS: amLODIPine BESYLATE 5 MG TABLET (FP) PO SCH (10:44)
[2022-01-14] MEDS: NYSTATIN 100,000 UNIT/GM TOPICAL CREAM 15 GM TUBE TP SCH (10:44)
[2022-01-14] MEDS: FAMOTIDINE 40 MG/5 ML ORAL SUSPENSION PEG SCH (10:44)
[2022-01-14] MEDS: ABACAVIR/DOLUTEGRAVIR/LAMIVUDI (TRIUMEQ) TABLET -NF PO SCH (10:45)
[2022-01-14 13:58] VITALS: BP 138/81; TEMP 98.4
[2022-01-14 14:31] VITALS: PULSE 68
[2022-01-14] MEDS: ALBUTEROL SO4 2.5/IPRATROPIUM 0.5 INH SOL 3 ML VIAL.NEB. NEB PRN (14:31)
== END 2022-01-14 18:00 | disposition home health service (06) | DRG 190 ==
LOC: JER 11:47 → JERBED 18:17 → J4S 01-07 00:18
PROVIDERS: ADMIT Internal Medicine; ATTEND Nurse Practitioner Acute Care
DX: J44.0 Chronic obstructive pulmonary disease with (acute) lower respiratory infection (principal); J18.9 Pneumonia, unspecified organism; E87.0 Hyperosmolality and hypernatremia; E87.2 Acidosis; F11.20 Opioid dependence, uncomplicated; N39.0 Urinary tract infection, site not specified; J96.10 Chronic respiratory failure, unspecified whether with hypoxia or hypercapnia; J44.1 Chronic obstructive pulmonary disease with (acute) exacerbation; Z21 Asymptomatic human immunodeficiency virus [HIV] infection status; E03.9 Hypothyroidism, unspecified; I10 Essential (primary) hypertension; E78.5 Hyperlipidemia, unspecified; F32.A Depression, unspecified; R22.42 Localized swelling, mass and lump, left lower limb; B96.20 Unspecified Escherichia coli [E. coli] as the cause of diseases classified elsewhere; B95.4 Other streptococcus as the cause of diseases classified elsewhere; Z85.21 Personal history of malignant neoplasm of larynx; Z99.81 Dependence on supplemental oxygen; Z93.0 Tracheostomy status
CPT/HCPCS: 0241U-QW; 36415; 71045-TC-FY; 73700-TC-RT; 80053; 81003; 82553; 82803; 83605; 83735; 84100; 84484; 85025; 85610; 85730; 86850; 86900; 86901; 87040; 87070; 87086; 87186; 87205; 87899; 93005; 93010; 93306-TC; 93970-TC; 94640; 97116-GP; 97162-GP; 99285-25; G0480

== ENCOUNTER 2022-03-18 19:48 | Inpatient (IN) | payer OTHER ==
[2022-03-18] MEDS ORDERED: methylPREDNISolone NA SUCC 125 MG/2 ML VIAL IVPB ONE (20:28)
[2022-03-18] MEDS ORDERED: ALBUTEROL SO4 2.5/IPRATROPIUM 0.5 INH SOL 3 ML VIAL.NEB. NEB ONE ×2 (20:37→20:41)
[2022-03-18] MEDS ORDERED: methylPREDNISolone NA SUCC 125 MG/2 ML VIAL ONE (20:41)
[2022-03-18] MEDS: ALBUTEROL SO4 2.5/IPRATROPIUM 0.5 INH SOL 3 ML VIAL.NEB. NEB SCH ×3 (20:49→21:14)
[2022-03-18 21:30] LABS: ARTERIAL BLD GAS O2 SATURATION 80.9 % (95-98); ARTERIAL BLOOD GAS BASE EXCESS 14.6 mmol/L (-2-2); ARTERIAL BLOOD GAS PO2 49.9 mmHg (80-100); ARTERIAL BLOOD GAS pH 7.343 (7.350-7.450)
[2022-03-18 21:33] LABS: BASO % 0.6 % (0-2.0); EOS % 0.2 % (0-4.5); HEMATOCRIT 27.9 % (32.4-45.2); HEMOGLOBIN 8.7 GM/dL (10.7-15.3); LYMPH % 10.1 % (8-40); MCH 29.1 pg (25.7-33.7); MCHC 31.3 g/dl (32.0-36.0); MEAN CELL VOLUME 92.9 fl (80-96); MEAN PLT VOLUME 8.9 fl (7.5-11.1); MONO % 8.1 % (3.8-10.2); PLATELET COUNT 225 10^3/uL (134-434); RBC 3.01 M/mm3 (3.60-5.2); RDW 17.4 % (11.6-15.6)
[2022-03-18 21:42] LABS: INR 1.12 (0.83-1.09); PROTHROMBIN TIME (PATIENT) 12.9 SEC (9.7-13.0)
[2022-03-18 21:45] LABS: ACTIVATED PTT 20.3 SECONDS (25.2-36.5)
[2022-03-18 21:58] LABS: BLOOD UREA NITROGEN 14.7 mg/dL (7-18); CALCIUM 8.6 mg/dL (8.5-10.1); MAGNESIUM 1.8 mg/dL (1.8-2.4)
[2022-03-18 21:59] LABS: ALBUMIN 2.8 g/dl (3.4-5.0)
[2022-03-18 22:03] LABS: BILIRUBIN,TOTAL 0.5 mg/dL (0.2-1); TOT PROT 6.5 g/dl (6.4-8.2)
[2022-03-18] MEDS ORDERED: POTASSIUM CHLORIDE TABS 20 MEQ TABLET.ER (FP) PO ONE (22:24)
[2022-03-18 22:29] LABS: ARTERIAL BLD GAS O2 SATURATION 79.2 % (95-98); ARTERIAL BLOOD GAS BASE EXCESS 14.4 mmol/L (-2-2); ARTERIAL BLOOD GAS PO2 46.1 mmHg (80-100); ARTERIAL BLOOD GAS pH 7.382 (7.350-7.450)
[2022-03-18] MEDS ORDERED: AZITHROMYCIN IVPB 500 MG in DEXTROSE 5%-WATER - 250 ML IVPB ONE (22:50)
[2022-03-18] MEDS ORDERED: CEFTRIAXONE 1 GM in DEXTROSE 5%-WATER - 100 ML IVPB ONE (22:55)
[2022-03-18] MEDS ORDERED: AZITHROMYCIN IVPB 500 MG/250 ML BAG IVPB ONE (23:56)
[2022-03-18] MEDS ORDERED: CEFTRIAXONE 1 GM/50 ML BAG ONE (23:56)
[2022-03-19 00:28] LABS: EPI CELLS >36 /uL (0-25.1); HYALINE CASTS 1 /uL (0-3.1); PH,URINE 5.5 (5.0-8.0); URINE APPEARANCE CLOUDY; URINE BACTERIA 583 /uL (0-1359); URINE BILIRUBIN NEGATIVE (NEGATIVE); URINE COLOR YELLOW; URINE GLUCOSE (UA) NEGATIVE (NEGATIVE); URINE KETONE NEGATIVE (NEGATIVE); URINE LEUK ESTERASE NEGATIVE (NEGATIVE); URINE NITRITE NEGATIVE (NEGATIVE); URINE PROTEIN NEGATIVE (NEGATIVE); URINE RBC 6 /uL (0-23.9); URINE UROBILINOGEN 0.2 mg/dL (0.2-1.0); URINE WBC 20 /uL (0-25.8)
[2022-03-19 00:41] LABS: MAGNESIUM 1.7 mg/dL (1.8-2.4)
[2022-03-19 00:49] LABS: N-TERMINAL BNP 1265.2 pg/ml (5-125)
[2022-03-19] MEDS ORDERED: MAGNESIUM SULF 50% (8.12 MEQ/2 ML-1 GM VIAL) IVPB ONE (01:24)
[2022-03-19] MEDS ORDERED: MAGNESIUM SULFATE 4GM/100CC IN STERILE WATER IVPB ONE (01:30)
[2022-03-19] MEDS ORDERED: ACETYLCYSTEINE 20% 200MG/ML 30 ML VIAL *FOR ORAL / INH USE ONLY PO SCH (02:30)
[2022-03-19] MEDS ORDERED: ALBUTEROL SO4 0.083% IH SOL 2.5 MG/3 ML VIAL.NEB. NEB ONE (02:35)
[2022-03-19] MEDS ORDERED: ACETYLCYSTEINE 20% 200MG/ML 4 ML VIAL *FOR ORAL / INH USE ONLY ONE (02:36)
[2022-03-19] MEDS: KCL 10 MEQ IVPB 10 MEQ/100 ML INFUS.BAG IVPB SCH ×3 (02:37→05:47)
[2022-03-19] MEDS: ALBUTEROL SO4 0.083% IH SOL 2.5 MG/3 ML VIAL.NEB. NEB PRN ×3 (02:52→15:03)
[2022-03-19] MEDS: MUPIROCIN 2% TOPICAL OINTMENT FOR DECOLONIZATION NS SCH ×3 (03:29→21:48)
[2022-03-19] MEDS ORDERED: FUROSEMIDE 40 MG/4 ML INJECTABLE VIAL IVPUSH ONE ×3 (03:34→17:42)
[2022-03-19] MEDS ORDERED: methylPREDNISolone NA SUCC 40 MG/1 ML VIAL IVPUSH ONE (04:26)
[2022-03-19] MEDS ORDERED: FUROSEMIDE 40 MG/4 ML INJECTABLE VIAL ONE (04:36)
[2022-03-19] MEDS ORDERED: DEXAMETHASONE SOD PHOSPHATE 10 MG/1 ML VIAL IVPUSH ONE (04:38)
[2022-03-19] MEDS: DEXMEDETOMIDINE IN 0.9 % NACL 400 MCG/100 ML VIAL IVPB SCH (05:15)
[2022-03-19] MEDS ORDERED: MAGNESIUM 2GM/50ML STERILE WATER IVPB IVPB ONE (05:30)
[2022-03-19] MEDS ORDERED: DEXTROSE 5%-0.45% SALINE 1,000 ML IV SCH (06:45)
[2022-03-19 06:54] LABS: HEMATOCRIT 27.5 % (32.4-45.2); HEMOGLOBIN 8.4 GM/dL (10.7-15.3); MCH 29.2 pg (25.7-33.7); MCHC 30.6 g/dl (32.0-36.0); MEAN CELL VOLUME 95.5 fl (80-96); MEAN PLT VOLUME 8.9 fl (7.5-11.1); PLATELET COUNT 211 10^3/uL (134-434); RBC 2.88 M/mm3 (3.60-5.2); RDW 17.3 % (11.6-15.6); WHITE BLOOD COUNT 10.3 K/mm3 (4.0-10.0)
[2022-03-19] MEDS: LEVOTHYROXINE SODIUM 100 MCG VIAL IVPUSH SCH (06:55)
[2022-03-19 07:31] LABS: ARTERIAL BLD GAS O2 SATURATION 87.6 % (95-98); ARTERIAL BLOOD GAS BASE EXCESS 12.1 mmol/L (-2-2); ARTERIAL BLOOD GAS PO2 60.6 mmHg (80-100); ARTERIAL BLOOD GAS pH 7.315 (7.350-7.450)
[2022-03-19 07:32] LABS: ALLENS TEST POSITIVE; VENT MODE A/C; VENT RATE 16
[2022-03-19 07:53] LABS: YEAST NONE SEEN (NEGATIVE)
[2022-03-19 07:57] LABS: ALBUMIN 2.4 g/dl (3.4-5.0)
[2022-03-19 07:58] LABS: BLOOD UREA NITROGEN 14.1 mg/dL (7-18)
[2022-03-19] MEDS ORDERED: CEFEPIME 1 GM in DEXTROSE 5%-WATER 100 ML IVPB SCH (08:00)
[2022-03-19] MEDS ORDERED: CEFEPIME HCL/D5W 1 GM/50 ML BAG IVPB SCH (08:00)
[2022-03-19 08:01] LABS: CREATININE 1.2 mg/dL (0.55-1.3)
[2022-03-19 08:02] LABS: BILIRUBIN,TOTAL 0.4 mg/dL (0.2-1); TOT PROT 5.9 g/dl (6.4-8.2)
[2022-03-19] MEDS: ALBUTEROL SO4 0.083% IH SOL 2.5 MG/3 ML VIAL.NEB. NEB SCH ×4 (08:38→20:05)
[2022-03-19] MEDS: PANTOPRAZOLE SODIUM 40 MG VIAL IVPUSH SCH (09:42)
[2022-03-19] MEDS: ENOXAPARIN NA (PORCINE) 40 MG/0.4 ML DISP.SYRIN SQ SCH (09:42)
[2022-03-19 10:26] LABS: ANISOCYTOSIS 3+; MACROCYTOSIS 0
[2022-03-19] MEDS ORDERED: VANCOMYCIN 1,000 MG in DEXTROSE 5%-WATER - 250 ML IVPB SCH (13:00)
[2022-03-19] MEDS: VANCOMYCIN/WATER FOR INJ (PEG) 1,000 MG/200 ML BAG IVPB SCH (13:45)
[2022-03-19] MEDS: ABACAVIR/DOLUTEGRAVIR/LAMIVUDI (TRIUMEQ) TABLET -NF PO SCH (17:41)
[2022-03-19] MEDS: CEFEPIME 1 GM in DEXTROSE 5%-WATER 100 ML IVPB SCH (17:42)
[2022-03-19] MEDS: CHLORHEXIDINE GLUCONATE 4% CLEANSER FOR DECOLONIZATION TP SCH (21:48)
[2022-03-19] MEDS: ATORVASTATIN CA 10 MG TABLET (FP) PO SCH (21:49)
[2022-03-19] MEDS: AZITHROMYCIN IVPB 250 MG in DEXTROSE 5%-WATER - 250 ML IVPB SCH (21:49)
[2022-03-20] MEDS: VANCOMYCIN/WATER FOR INJ (PEG) 1,000 MG/200 ML BAG IVPB SCH ×2 (00:06→13:50)
[2022-03-20] MEDS: CEFEPIME 1 GM in DEXTROSE 5%-WATER 100 ML IVPB SCH ×3 (02:45→17:22)
[2022-03-20] MEDS: DEXMEDETOMIDINE IN 0.9 % NACL 400 MCG/100 ML VIAL IVPB SCH (06:05)
[2022-03-20] MEDS: LEVOTHYROXINE SODIUM 100 MCG VIAL IVPUSH SCH (06:05)
[2022-03-20] MEDS: ALBUTEROL SO4 0.083% IH SOL 2.5 MG/3 ML VIAL.NEB. NEB PRN (07:20)
[2022-03-20] MEDS: ALBUTEROL SO4 0.083% IH SOL 2.5 MG/3 ML VIAL.NEB. NEB SCH ×4 (07:20→20:05)
[2022-03-20 08:09] LABS: HEMOGLOBIN 8.5 GM/dL (10.7-15.3); MCH 28.7 pg (25.7-33.7); MCHC 30.5 g/dl (32.0-36.0); MEAN CELL VOLUME 93.9 fl (80-96); MEAN PLT VOLUME 8.5 fl (7.5-11.1); PLATELET COUNT 222 10^3/uL (134-434); RBC 2.98 M/mm3 (3.60-5.2); RDW 17.2 % (11.6-15.6); WHITE BLOOD COUNT 15.6 K/mm3 (4.0-10.0)
[2022-03-20 08:22] LABS: CHLORIDE 94 mmol/L (98-107); SODIUM 143 mmol/L (136-145)
[2022-03-20 08:29] LABS: CALCIUM 8.2 mg/dL (8.5-10.1)
[2022-03-20 08:30] LABS: ALBUMIN 2.8 g/dl (3.4-5.0); BLOOD UREA NITROGEN 14.3 mg/dL (7-18); GLUCOSE,RANDOM 86 mg/dL (74-106); MAGNESIUM 2.2 mg/dL (1.8-2.4)
[2022-03-20 08:33] LABS: CREATININE 0.8 mg/dL (0.55-1.3); PHOSPHOROUS 3.1 mg/dL (2.5-4.9); SGOT/AST 25 U/L (15-37); SGPT/ALT 10 U/L (13-61)
[2022-03-20 08:34] LABS: BILIRUBIN,TOTAL 0.4 mg/dL (0.2-1); TOT PROT 6.4 g/dl (6.4-8.2)
[2022-03-20 08:35] LABS: ALK PHOS 60 U/L (45-117)
[2022-03-20 08:40] LABS: ANION GAP 3 MMOL/L (8-16); CO2 > 45 mmol/L (21-32)
[2022-03-20] MEDS ORDERED: CEFEPIME 1 GM in DEXTROSE 5%-WATER 100 ML IVPB SCH (10:00)
[2022-03-20 10:18] LABS: ANISOCYTOSIS 0; HELMET CELLS 0; HOWELL-JOLLY BODIES 0; MACROCYTOSIS 0; OVALOCYTE 0; ROULEAU 0; SICKELED CELLS 0; TARGET CELLS 0; TEAR DROP CELLS 0; TOXIC GRANULATION 0
[2022-03-20] MEDS: ASCORBIC ACID 500 MG TABLET (FP) PO SCH ×2 (10:24→21:35)
[2022-03-20] MEDS: MULTIVITAMINS (DAILY MVI) TABLET (FP) PO SCH (10:24)
[2022-03-20] MEDS: ENOXAPARIN NA (PORCINE) 40 MG/0.4 ML DISP.SYRIN SQ SCH (10:24)
[2022-03-20] MEDS: ZINC SULFATE 220 MG CAPSULE (FP) PO SCH (10:24)
[2022-03-20] MEDS: AZITHROMYCIN IVPB 250 MG in DEXTROSE 5%-WATER - 250 ML IVPB SCH (10:24)
[2022-03-20] MEDS: methylPREDNISolone NA SUCC 40 MG/1 ML VIAL IVPUSH SCH (10:25)
[2022-03-20] MEDS ORDERED: FUROSEMIDE 40 MG/4 ML INJECTABLE VIAL IVPUSH ONE (10:28)
[2022-03-20] MEDS: PANTOPRAZOLE SODIUM 40 MG VIAL IVPUSH SCH (10:32)
[2022-03-20] MEDS: MUPIROCIN 2% TOPICAL OINTMENT FOR DECOLONIZATION NS SCH ×2 (10:38→21:35)
[2022-03-20] MEDS ORDERED: methaDONE HCL 10 MG TABLET (FOR DETOX USE ONLY) PO ONE (16:27)
[2022-03-20] MEDS: ABACAVIR/DOLUTEGRAVIR/LAMIVUDI (TRIUMEQ) TABLET -NF PO SCH (17:22)
[2022-03-20] MEDS ORDERED: methaDONE 40 MG, methaDONE 30 MG PO ONE (17:45)
[2022-03-20] MEDS: CHLORHEXIDINE GLUCONATE 4% CLEANSER FOR DECOLONIZATION TP SCH (21:35)
[2022-03-20] MEDS: ATORVASTATIN CA 10 MG TABLET (FP) PO SCH (21:35)
[2022-03-21] MEDS: VANCOMYCIN/WATER FOR INJ (PEG) 1,000 MG/200 ML BAG IVPB SCH ×2 (00:04→13:25)
[2022-03-21] MEDS: CEFEPIME 1 GM in DEXTROSE 5%-WATER 100 ML IVPB SCH ×3 (02:43→17:46)
[2022-03-21] MEDS ORDERED: methaDONE HCL 40 MG DISPERSABLE TABLET PO SCH (06:00)
[2022-03-21] MEDS: LEVOTHYROXINE SODIUM 100 MCG VIAL IVPUSH SCH (06:06)
[2022-03-21] MEDS: DEXMEDETOMIDINE IN 0.9 % NACL 400 MCG/100 ML VIAL IVPB SCH (06:07)
[2022-03-21 06:59] LABS: HEMATOCRIT 29.7 % (32.4-45.2); HEMOGLOBIN 9.3 GM/dL (10.7-15.3); MCH 28.9 pg (25.7-33.7); MCHC 31.3 g/dl (32.0-36.0); MEAN CELL VOLUME 92.6 fl (80-96); MEAN PLT VOLUME 8.1 fl (7.5-11.1); PLATELET COUNT 246 10^3/uL (134-434); RBC 3.21 M/mm3 (3.60-5.2); RDW 17.8 % (11.6-15.6)
[2022-03-21] MEDS: ALBUTEROL SO4 0.083% IH SOL 2.5 MG/3 ML VIAL.NEB. NEB SCH ×4 (07:20→20:26)
[2022-03-21 07:23] LABS: CALCIUM 8.7 mg/dL (8.5-10.1)
[2022-03-21 07:24] LABS: BLOOD UREA NITROGEN 15.8 mg/dL (7-18); MAGNESIUM 2.4 mg/dL (1.8-2.4)
[2022-03-21 07:27] LABS: CREATININE 0.9 mg/dL (0.55-1.3); PHOSPHOROUS 2.9 mg/dL (2.5-4.9)
[2022-03-21] MEDS: ENOXAPARIN NA (PORCINE) 40 MG/0.4 ML DISP.SYRIN SQ SCH (09:58)
[2022-03-21] MEDS: ABACAVIR/DOLUTEGRAVIR/LAMIVUDI (TRIUMEQ) TABLET -NF PO SCH (09:59)
[2022-03-21] MEDS: ZINC SULFATE 220 MG CAPSULE (FP) PO SCH (09:59)
[2022-03-21] MEDS: methylPREDNISolone NA SUCC 40 MG/1 ML VIAL IVPUSH SCH (09:59)
[2022-03-21] MEDS: PANTOPRAZOLE SODIUM 40 MG VIAL IVPUSH SCH (09:59)
[2022-03-21] MEDS: MULTIVITAMINS (DAILY MVI) TABLET (FP) PO SCH (09:59)
[2022-03-21] MEDS: ASCORBIC ACID 500 MG TABLET (FP) PO SCH ×2 (09:59→21:53)
[2022-03-21] MEDS: MUPIROCIN 2% TOPICAL OINTMENT FOR DECOLONIZATION NS SCH ×2 (09:59→21:53)
[2022-03-21] MEDS: AZITHROMYCIN IVPB 250 MG in DEXTROSE 5%-WATER - 250 ML IVPB SCH (10:00)
[2022-03-21] MEDS ORDERED: ONDANSETRON 4 MG/2 ML VIAL IVPUSH ONE (11:34)
[2022-03-21] MEDS ORDERED: FUROSEMIDE 40 MG/4 ML INJECTABLE VIAL IVPUSH ONE (15:42)
[2022-03-21] MEDS: methaDONE HCL 40 MG DISPERSABLE TABLET PO SCH (17:47)
[2022-03-21] MEDS: ATORVASTATIN CA 10 MG TABLET (FP) PO SCH (21:53)
[2022-03-21] MEDS: CHLORHEXIDINE GLUCONATE 4% CLEANSER FOR DECOLONIZATION TP SCH (21:53)
[2022-03-22] MEDS: VANCOMYCIN/WATER FOR INJ (PEG) 1,000 MG/200 ML BAG IVPB SCH ×2 (00:39→16:17)
[2022-03-22] MEDS: CEFEPIME 1 GM in DEXTROSE 5%-WATER 100 ML IVPB SCH ×3 (01:03→18:00)
[2022-03-22] MEDS: methaDONE HCL 40 MG DISPERSABLE TABLET PO SCH (05:50)
[2022-03-22] MEDS: LEVOTHYROXINE NA 125 MCG TABLET (FP) PO SCH (06:00)
[2022-03-22 07:54] LABS: HEMATOCRIT 29.5 % (32.4-45.2); HEMOGLOBIN 8.9 GM/dL (10.7-15.3); MCH 28.9 pg (25.7-33.7); MCHC 30.4 g/dl (32.0-36.0); MEAN PLT VOLUME 8.4 fl (7.5-11.1); PLATELET COUNT 272 10^3/uL (134-434); RDW 17.5 % (11.6-15.6); WHITE BLOOD COUNT 13.3 K/mm3 (4.0-10.0)
[2022-03-22] MEDS: ALBUTEROL SO4 0.083% IH SOL 2.5 MG/3 ML VIAL.NEB. NEB SCH ×4 (08:16→20:05)
[2022-03-22 08:18] LABS: ALBUMIN 2.8 g/dl (3.4-5.0); BLOOD UREA NITROGEN 18.2 mg/dL (7-18); CALCIUM 8.7 mg/dL (8.5-10.1); MAGNESIUM 2.5 mg/dL (1.8-2.4)
[2022-03-22 08:21] LABS: CREATININE 1.1 mg/dL (0.55-1.3); PHOSPHOROUS 4.3 mg/dL (2.5-4.9)
[2022-03-22 08:23] LABS: BILIRUBIN,TOTAL 0.5 mg/dL (0.2-1); TOT PROT 6.6 g/dl (6.4-8.2)
[2022-03-22] MEDS: ABACAVIR/DOLUTEGRAVIR/LAMIVUDI (TRIUMEQ) TABLET -NF PO SCH (09:38)
[2022-03-22] MEDS: PANTOPRAZOLE SODIUM 40 MG VIAL IVPUSH SCH (09:39)
[2022-03-22] MEDS: ZINC SULFATE 220 MG CAPSULE (FP) PO SCH (09:39)
[2022-03-22] MEDS: ENOXAPARIN NA (PORCINE) 40 MG/0.4 ML DISP.SYRIN SQ SCH (09:39)
[2022-03-22] MEDS: MULTIVITAMINS (DAILY MVI) TABLET (FP) PO SCH (09:39)
[2022-03-22] MEDS: MUPIROCIN 2% TOPICAL OINTMENT FOR DECOLONIZATION NS SCH ×2 (09:40→21:52)
[2022-03-22] MEDS: methylPREDNISolone NA SUCC 40 MG/1 ML VIAL IVPUSH SCH (09:40)
[2022-03-22] MEDS: ASCORBIC ACID 500 MG TABLET (FP) PO SCH ×2 (09:40→21:51)
[2022-03-22] MEDS: AZITHROMYCIN IVPB 250 MG in DEXTROSE 5%-WATER - 250 ML IVPB SCH (09:40)
[2022-03-22 09:50] LABS: ANISOCYTOSIS 1+; MACROCYTOSIS 1+; OVALOCYTE 1+
[2022-03-22] MEDS: NYSTATIN 100,000 UNIT/GM TOPICAL CREAM 15 GM TUBE TP SCH ×2 (13:23→21:51)
[2022-03-22] MEDS: ATORVASTATIN CA 10 MG TABLET (FP) PO SCH (21:51)
[2022-03-22] MEDS: CHLORHEXIDINE GLUCONATE 4% CLEANSER FOR DECOLONIZATION TP SCH (21:52)
[2022-03-23] MEDS: CEFEPIME 1 GM in DEXTROSE 5%-WATER 100 ML IVPB SCH ×3 (02:44→17:11)
[2022-03-23] MEDS: methaDONE HCL 40 MG DISPERSABLE TABLET PO SCH (06:23)
[2022-03-23] MEDS: LEVOTHYROXINE NA 125 MCG TABLET (FP) PO SCH (06:23)
[2022-03-23 07:55] LABS: ALBUMIN 2.8 g/dl (3.4-5.0); BLOOD UREA NITROGEN 18.3 mg/dL (7-18); MAGNESIUM 2.3 mg/dL (1.8-2.4)
[2022-03-23 07:58] LABS: PHOSPHOROUS 3.6 mg/dL (2.5-4.9)
[2022-03-23 07:59] LABS: BILIRUBIN,TOTAL 0.2 mg/dL (0.2-1)
[2022-03-23 08:01] LABS: TOT PROT 6.6 g/dl (6.4-8.2)
[2022-03-23 08:05] LABS: HEMOGLOBIN 9.2 GM/dL (10.7-15.3); MCH 29.1 pg (25.7-33.7); MCHC 30.6 g/dl (32.0-36.0); MEAN CELL VOLUME 95.1 fl (80-96); MEAN PLT VOLUME 8.1 fl (7.5-11.1); PLATELET COUNT 259 10^3/uL (134-434); RBC 3.15 M/mm3 (3.60-5.2); RDW 17.5 % (11.6-15.6); WHITE BLOOD COUNT 11.6 K/mm3 (4.0-10.0)
[2022-03-23] MEDS: ALBUTEROL SO4 0.083% IH SOL 2.5 MG/3 ML VIAL.NEB. NEB SCH ×4 (08:25→20:48)
[2022-03-23] MEDS: ENOXAPARIN NA (PORCINE) 40 MG/0.4 ML DISP.SYRIN SQ SCH (09:34)
[2022-03-23] MEDS: VANCOMYCIN/WATER FOR INJ (PEG) 1,000 MG/200 ML BAG IVPB SCH (09:34)
[2022-03-23] MEDS: methylPREDNISolone NA SUCC 40 MG/1 ML VIAL IVPUSH SCH (09:35)
[2022-03-23] MEDS: PANTOPRAZOLE SODIUM 40 MG VIAL IVPUSH SCH (09:35)
[2022-03-23] MEDS: ZINC SULFATE 220 MG CAPSULE (FP) PO SCH (09:35)
[2022-03-23] MEDS: ABACAVIR/DOLUTEGRAVIR/LAMIVUDI (TRIUMEQ) TABLET -NF PO SCH (09:35)
[2022-03-23] MEDS: MULTIVITAMINS (DAILY MVI) TABLET (FP) PO SCH ×2 (09:35→09:49)
[2022-03-23] MEDS: ASCORBIC ACID 500 MG TABLET (FP) PO SCH (09:36)
[2022-03-23] MEDS: AZITHROMYCIN IVPB 250 MG in DEXTROSE 5%-WATER - 250 ML IVPB SCH (09:36)
[2022-03-23] MEDS: NYSTATIN 100,000 UNIT/GM TOPICAL CREAM 15 GM TUBE TP SCH ×2 (09:53→21:12)
[2022-03-23] MEDS: MUPIROCIN 2% TOPICAL OINTMENT FOR DECOLONIZATION NS SCH ×2 (09:53→21:12)
[2022-03-23 10:31] LABS: ANISOCYTOSIS 2+; MACROCYTOSIS 0
[2022-03-23 15:58] VITALS: BMI 32.9
[2022-03-23] MEDS ORDERED: MULTIVIT-MINERALS ORAL LIQUID PO SCH (19:37)
[2022-03-23] MEDS ORDERED: MULTIVIT-MINERALS ORAL LIQUID GT SCH (19:38)
[2022-03-23] MEDS: ASCORBIC ACID 500 MG/5 ML GT SCH (21:12)
[2022-03-23] MEDS: ATORVASTATIN CA 10 MG TABLET (FP) PO SCH (21:12)
[2022-03-23] MEDS: CHLORHEXIDINE GLUCONATE 4% CLEANSER FOR DECOLONIZATION TP SCH (21:12)
[2022-03-24] MEDS: CEFEPIME 1 GM in DEXTROSE 5%-WATER 100 ML IVPB SCH ×3 (01:56→18:49)
[2022-03-24] MEDS: LEVOTHYROXINE NA 125 MCG TABLET (FP) PO SCH (06:24)
[2022-03-24] MEDS: methaDONE HCL 40 MG DISPERSABLE TABLET PO SCH (06:40)
[2022-03-24 07:00] LABS: HEMATOCRIT 26.9 % (32.4-45.2); HEMOGLOBIN 8.8 GM/dL (10.7-15.3); MCH 30.6 pg (25.7-33.7); MCHC 32.6 g/dl (32.0-36.0); MEAN PLT VOLUME 7.6 fl (7.5-11.1); PLATELET COUNT 218 10^3/uL (134-434); RBC 2.86 M/mm3 (3.60-5.2)
[2022-03-24 07:18] LABS: CALCIUM 8.8 mg/dL (8.5-10.1)
[2022-03-24 07:19] LABS: ALBUMIN 2.7 g/dl (3.4-5.0); BLOOD UREA NITROGEN 14.6 mg/dL (7-18); MAGNESIUM 2.1 mg/dL (1.8-2.4)
[2022-03-24 07:22] LABS: CREATININE 0.7 mg/dL (0.55-1.3)
[2022-03-24 07:23] LABS: BILIRUBIN,TOTAL 0.3 mg/dL (0.2-1); TOT PROT 6.1 g/dl (6.4-8.2)
[2022-03-24] MEDS: ACETYLCYSTEINE 20% 200MG/ML 4 ML VIAL *FOR ORAL / INH USE ONLY PO SCH (07:56)
[2022-03-24] MEDS: methylPREDNISolone NA SUCC 40 MG/1 ML VIAL IVPUSH SCH (10:26)
[2022-03-24] MEDS: ASCORBIC ACID 500 MG/5 ML GT SCH ×2 (10:26→22:16)
[2022-03-24] MEDS: ENOXAPARIN NA (PORCINE) 40 MG/0.4 ML DISP.SYRIN SQ SCH (10:26)
[2022-03-24] MEDS: ZINC SULFATE 220 MG CAPSULE (FP) PO SCH (10:26)
[2022-03-24] MEDS: NYSTATIN 100,000 UNIT/GM TOPICAL CREAM 15 GM TUBE TP SCH ×2 (10:26→22:16)
[2022-03-24] MEDS: PANTOPRAZOLE SODIUM 40 MG VIAL IVPUSH SCH (10:27)
[2022-03-24] MEDS: ABACAVIR/DOLUTEGRAVIR/LAMIVUDI (TRIUMEQ) TABLET -NF PO SCH (10:27)
[2022-03-24] MEDS: VANCOMYCIN/WATER FOR INJ (PEG) 1,000 MG/200 ML BAG IVPB SCH (10:40)
[2022-03-24 10:48] LABS: ANISOCYTOSIS 1+; MACROCYTOSIS 0; PLATELET ESTIMATE NORMAL
[2022-03-24] MEDS: ACETYLCYSTEINE 20% 200MG/ML 4 ML VIAL *FOR ORAL / INH USE ONLY IH SCH ×4 (12:00→18:54)
[2022-03-24] MEDS: ALBUTEROL SO4 0.083% IH SOL 2.5 MG/3 ML VIAL.NEB. NEB PRN (13:56)
[2022-03-24] MEDS: CHLORHEXIDINE GLUCONATE 4% CLEANSER FOR DECOLONIZATION TP SCH (22:16)
[2022-03-24] MEDS: ATORVASTATIN CA 10 MG TABLET (FP) PO SCH (22:16)
[2022-03-25] MEDS: CEFEPIME 1 GM in DEXTROSE 5%-WATER 100 ML IVPB SCH ×3 (01:23→18:44)
[2022-03-25] MEDS: methaDONE HCL 40 MG DISPERSABLE TABLET PO SCH (06:24)
[2022-03-25] MEDS: LEVOTHYROXINE NA 125 MCG TABLET (FP) PO SCH (06:24)
[2022-03-25 08:07] LABS: BASO % 0.3 % (0-2.0); EOS % 0.6 % (0-4.5); HEMATOCRIT 29.1 % (32.4-45.2); HEMOGLOBIN 9.3 GM/dL (10.7-15.3); LYMPH % 15.7 % (8-40); MCH 29.6 pg (25.7-33.7); MCHC 32.1 g/dl (32.0-36.0); MEAN CELL VOLUME 92.1 fl (80-96); MEAN PLT VOLUME 7.8 fl (7.5-11.1); MONO % 7.8 % (3.8-10.2); NEUT % 75.6 % (42.8-82.8); PLATELET COUNT 273 10^3/uL (134-434); RBC 3.16 M/mm3 (3.60-5.2); RDW 17.1 % (11.6-15.6); WHITE BLOOD COUNT 10.2 K/mm3 (4.0-10.0)
[2022-03-25 08:33] LABS: MAGNESIUM 1.9 mg/dL (1.8-2.4)
[2022-03-25 08:40] LABS: ALBUMIN 2.9 g/dl (3.4-5.0); BILIRUBIN,TOTAL 0.4 mg/dL (0.2-1); BLOOD UREA NITROGEN 13.8 mg/dL (7-18); CREATININE 0.7 mg/dL (0.55-1.3); PHOSPHOROUS 3.2 mg/dL (2.5-4.9); TOT PROT 6.4 g/dl (6.4-8.2)
[2022-03-25] MEDS: PANTOPRAZOLE SODIUM 40 MG VIAL IVPUSH SCH (10:56)
[2022-03-25] MEDS: methylPREDNISolone NA SUCC 40 MG/1 ML VIAL IVPUSH SCH (10:58)
[2022-03-25] MEDS: NYSTATIN 100,000 UNIT/GM TOPICAL CREAM 15 GM TUBE TP SCH ×2 (12:18→21:48)
[2022-03-25] MEDS: VANCOMYCIN/WATER FOR INJ (PEG) 1,000 MG/200 ML BAG IVPB SCH (12:18)
[2022-03-25] MEDS: ENOXAPARIN NA (PORCINE) 40 MG/0.4 ML DISP.SYRIN SQ SCH (12:18)
[2022-03-25] MEDS ORDERED: TRIMETHOBENZAMIDE HCL 200MG/2ML INJ IM ONE (13:00)
[2022-03-25] MEDS: ZINC SULFATE 220 MG CAPSULE (FP) PO SCH (15:07)
[2022-03-25] MEDS: ABACAVIR/DOLUTEGRAVIR/LAMIVUDI (TRIUMEQ) TABLET -NF PO SCH (15:07)
[2022-03-25] MEDS: ASCORBIC ACID 500 MG/5 ML GT SCH ×2 (15:08→21:46)
[2022-03-25] MEDS: ALBUTEROL SO4 0.083% IH SOL 2.5 MG/3 ML VIAL.NEB. NEB PRN (20:29)
[2022-03-25] MEDS: ATORVASTATIN CA 10 MG TABLET (FP) PO SCH (21:46)
[2022-03-26] MEDS: CEFEPIME 1 GM in DEXTROSE 5%-WATER 100 ML IVPB SCH ×3 (02:28→17:08)
[2022-03-26] MEDS ORDERED: methaDONE HCL 40 MG DISPERSABLE TABLET PO SCH (06:00)
[2022-03-26] MEDS: methaDONE 40 MG, methaDONE 30 MG PO SCH (06:54)
[2022-03-26] MEDS: LEVOTHYROXINE NA 125 MCG TABLET (FP) PO SCH (06:54)
[2022-03-26] MEDS: VANCOMYCIN/WATER FOR INJ (PEG) 1,000 MG/200 ML BAG IVPB SCH (09:43)
[2022-03-26] MEDS: methylPREDNISolone NA SUCC 40 MG/1 ML VIAL IVPUSH SCH (09:45)
[2022-03-26] MEDS: PANTOPRAZOLE SODIUM 40 MG VIAL IVPUSH SCH (09:46)
[2022-03-26] MEDS: ZINC SULFATE 220 MG CAPSULE (FP) PO SCH (09:46)
[2022-03-26] MEDS: ENOXAPARIN NA (PORCINE) 40 MG/0.4 ML DISP.SYRIN SQ SCH (09:46)
[2022-03-26] MEDS: ACETYLCYSTEINE 20% 200MG/ML 4 ML VIAL *FOR ORAL / INH USE ONLY IH SCH ×7 (09:46→21:03)
[2022-03-26] MEDS: ABACAVIR/DOLUTEGRAVIR/LAMIVUDI (TRIUMEQ) TABLET -NF PO SCH (09:49)
[2022-03-26] MEDS: NYSTATIN 100,000 UNIT/GM TOPICAL CREAM 15 GM TUBE TP SCH ×2 (09:50→21:38)
[2022-03-26] MEDS: ASCORBIC ACID 500 MG/5 ML GT SCH ×3 (09:51→21:38)
[2022-03-26] MEDS: ATORVASTATIN CA 10 MG TABLET (FP) PO SCH (21:39)
[2022-03-27] MEDS: ACETYLCYSTEINE 20% 200MG/ML 4 ML VIAL *FOR ORAL / INH USE ONLY IH SCH ×6 (01:14→20:05)
[2022-03-27] MEDS: CEFEPIME 1 GM in DEXTROSE 5%-WATER 100 ML IVPB SCH ×3 (01:21→17:58)
[2022-03-27] MEDS: methaDONE 40 MG, methaDONE 30 MG PO SCH (06:02)
[2022-03-27] MEDS: LEVOTHYROXINE NA 125 MCG TABLET (FP) PO SCH (06:02)
[2022-03-27] MEDS: ENOXAPARIN NA (PORCINE) 40 MG/0.4 ML DISP.SYRIN SQ SCH (09:41)
[2022-03-27] MEDS: ASCORBIC ACID 500 MG/5 ML GT SCH ×2 (09:42→21:25)
[2022-03-27] MEDS: PANTOPRAZOLE SODIUM 40 MG VIAL IVPUSH SCH (09:42)
[2022-03-27] MEDS: methylPREDNISolone NA SUCC 40 MG/1 ML VIAL IVPUSH SCH (09:42)
[2022-03-27] MEDS: ZINC SULFATE 220 MG CAPSULE (FP) PO SCH (09:42)
[2022-03-27] MEDS: ABACAVIR/DOLUTEGRAVIR/LAMIVUDI (TRIUMEQ) TABLET -NF PO SCH (09:42)
[2022-03-27] MEDS: NYSTATIN 100,000 UNIT/GM TOPICAL CREAM 15 GM TUBE TP SCH ×2 (09:43→21:26)
[2022-03-27] MEDS: VANCOMYCIN/WATER FOR INJ (PEG) 1,000 MG/200 ML BAG IVPB SCH (11:22)
[2022-03-27] MEDS ORDERED: ACETYLCYSTEINE 20% 200MG/ML 4 ML VIAL *FOR ORAL / INH USE ONLY NEB SCH (11:34)
[2022-03-27] MEDS: ALBUTEROL SO4 0.083% IH SOL 2.5 MG/3 ML VIAL.NEB. NEB PRN ×3 (11:35→20:06)
[2022-03-27] MEDS: ATORVASTATIN CA 10 MG TABLET (FP) PO SCH (21:24)
[2022-03-28] MEDS: CEFEPIME 1 GM in DEXTROSE 5%-WATER 100 ML IVPB SCH ×3 (02:14→17:48)
[2022-03-28] MEDS: methaDONE 40 MG, methaDONE 30 MG PO SCH (06:04)
[2022-03-28] MEDS: LEVOTHYROXINE NA 125 MCG TABLET (FP) PO SCH (06:05)
[2022-03-28 08:06] LABS: HEMATOCRIT 30.7 % (32.4-45.2); HEMOGLOBIN 9.8 GM/dL (10.7-15.3); MCH 29.8 pg (25.7-33.7); MCHC 31.9 g/dl (32.0-36.0); MEAN CELL VOLUME 93.6 fl (80-96); MEAN PLT VOLUME 7.9 fl (7.5-11.1); PLATELET COUNT 261 10^3/uL (134-434); RBC 3.28 M/mm3 (3.60-5.2); RDW 17.7 % (11.6-15.6); WHITE BLOOD COUNT 10.8 K/mm3 (4.0-10.0)
[2022-03-28 08:20] LABS: ALBUMIN 2.8 g/dl (3.4-5.0)
[2022-03-28 08:21] LABS: BLOOD UREA NITROGEN 16.1 mg/dL (7-18); CALCIUM 9.2 mg/dL (8.5-10.1)
[2022-03-28 08:24] LABS: CREATININE 0.9 mg/dL (0.55-1.3)
[2022-03-28 08:25] LABS: TOT PROT 6.3 g/dl (6.4-8.2)
[2022-03-28 08:26] LABS: BILIRUBIN,TOTAL 0.3 mg/dL (0.2-1)
[2022-03-28] MEDS: ACETYLCYSTEINE 20% 200MG/ML 4 ML VIAL *FOR ORAL / INH USE ONLY IH SCH ×4 (08:45→20:35)
[2022-03-28] MEDS: ALBUTEROL SO4 0.083% IH SOL 2.5 MG/3 ML VIAL.NEB. NEB PRN ×4 (09:00→20:35)
[2022-03-28] MEDS: ENOXAPARIN NA (PORCINE) 40 MG/0.4 ML DISP.SYRIN SQ SCH (10:17)
[2022-03-28] MEDS: methylPREDNISolone NA SUCC 40 MG/1 ML VIAL IVPUSH SCH (10:17)
[2022-03-28] MEDS: PANTOPRAZOLE SODIUM 40 MG VIAL IVPUSH SCH (10:17)
[2022-03-28] MEDS: ZINC SULFATE 220 MG CAPSULE (FP) PO SCH (10:18)
[2022-03-28] MEDS: NYSTATIN 100,000 UNIT/GM TOPICAL CREAM 15 GM TUBE TP SCH ×2 (10:18→22:01)
[2022-03-28] MEDS: ABACAVIR/DOLUTEGRAVIR/LAMIVUDI (TRIUMEQ) TABLET -NF PO SCH (10:19)
[2022-03-28] MEDS: VANCOMYCIN/WATER FOR INJ (PEG) 1,000 MG/200 ML BAG IVPB SCH (10:20)
[2022-03-28] MEDS: ASCORBIC ACID 500 MG/5 ML GT SCH ×3 (10:20→22:02)
[2022-03-28] MEDS: ATORVASTATIN CA 10 MG TABLET (FP) PO SCH (22:01)
[2022-03-29] MEDS: CEFEPIME 1 GM in DEXTROSE 5%-WATER 100 ML IVPB SCH ×3 (02:14→17:00)
[2022-03-29] MEDS: LEVOTHYROXINE NA 125 MCG TABLET (FP) PO SCH (06:26)
[2022-03-29] MEDS: methaDONE 40 MG, methaDONE 30 MG PO SCH (06:27)
[2022-03-29] MEDS: ACETYLCYSTEINE 20% 200MG/ML 4 ML VIAL *FOR ORAL / INH USE ONLY IH SCH ×6 (08:50→20:07)
[2022-03-29] MEDS: ALBUTEROL SO4 0.083% IH SOL 2.5 MG/3 ML VIAL.NEB. NEB PRN ×4 (08:50→20:08)
[2022-03-29] MEDS ORDERED: CEFEPIME HCL 1 GM VIAL (RESTRICTED TO ID) ONE ×2 (10:17→10:19)
[2022-03-29] MEDS: ENOXAPARIN NA (PORCINE) 40 MG/0.4 ML DISP.SYRIN SQ SCH (10:21)
[2022-03-29] MEDS: ZINC SULFATE 220 MG CAPSULE (FP) PO SCH (10:21)
[2022-03-29] MEDS: methylPREDNISolone NA SUCC 40 MG/1 ML VIAL IVPUSH SCH (10:21)
[2022-03-29] MEDS: ASCORBIC ACID 500 MG/5 ML GT SCH ×3 (10:22→21:56)
[2022-03-29] MEDS: NYSTATIN 100,000 UNIT/GM TOPICAL CREAM 15 GM TUBE TP SCH ×2 (10:25→21:56)
[2022-03-29] MEDS: ABACAVIR/DOLUTEGRAVIR/LAMIVUDI (TRIUMEQ) TABLET -NF PO SCH (10:35)
[2022-03-29] MEDS: PANTOPRAZOLE SODIUM 40 MG VIAL IVPUSH SCH (11:10)
[2022-03-29 11:12] LABS: HEMATOCRIT 31.3 % (32.4-45.2); HEMOGLOBIN 9.9 GM/dL (10.7-15.3); MCH 29.8 pg (25.7-33.7); MCHC 31.7 g/dl (32.0-36.0); MEAN PLT VOLUME 7.4 fl (7.5-11.1); PLATELET COUNT 238 10^3/uL (134-434); RBC 3.33 M/mm3 (3.60-5.2); RDW 17.5 % (11.6-15.6)
[2022-03-29] MEDS: VANCOMYCIN/WATER FOR INJ (PEG) 1,000 MG/200 ML BAG IVPB SCH (11:48)
[2022-03-29 11:49] LABS: BLOOD UREA NITROGEN 14.7 mg/dL (7-18)
[2022-03-29 11:50] LABS: ALBUMIN 2.9 g/dl (3.4-5.0)
[2022-03-29 11:53] LABS: CREATININE 0.9 mg/dL (0.55-1.3)
[2022-03-29 11:54] LABS: BILIRUBIN,TOTAL 0.2 mg/dL (0.2-1); TOT PROT 6.2 g/dl (6.4-8.2)
[2022-03-29] MEDS ORDERED: POTASSIUM CHLORIDE TABS 20 MEQ TABLET.ER (FP) PO ONE (15:34)
[2022-03-29] MEDS ORDERED: POTASSIUM PHOSPHATE 30 MM in SODIUM CHLORIDE 500 ML IVPB ONE (16:30)
[2022-03-29] MEDS: ATORVASTATIN CA 10 MG TABLET (FP) PO SCH (21:55)
[2022-03-30] MEDS: CEFEPIME 1 GM in DEXTROSE 5%-WATER 100 ML IVPB SCH ×3 (02:59→17:24)
[2022-03-30] MEDS: methaDONE 40 MG, methaDONE 30 MG PO SCH (06:33)
[2022-03-30] MEDS: LEVOTHYROXINE NA 125 MCG TABLET (FP) PO SCH (06:34)
[2022-03-30] MEDS: ACETYLCYSTEINE 20% 200MG/ML 4 ML VIAL *FOR ORAL / INH USE ONLY IH SCH ×5 (07:23→23:27)
[2022-03-30] MEDS: ALBUTEROL SO4 0.083% IH SOL 2.5 MG/3 ML VIAL.NEB. NEB PRN ×3 (07:23→15:42)
[2022-03-30 08:35] LABS: HEMATOCRIT 31.6 % (32.4-45.2); HEMOGLOBIN 10.2 GM/dL (10.7-15.3); MCH 30.1 pg (25.7-33.7); MCHC 32.3 g/dl (32.0-36.0); MEAN CELL VOLUME 93.3 fl (80-96); MEAN PLT VOLUME 7.9 fl (7.5-11.1); PLATELET COUNT 250 10^3/uL (134-434); RBC 3.38 M/mm3 (3.60-5.2); RDW 17.5 % (11.6-15.6); WHITE BLOOD COUNT 11.2 K/mm3 (4.0-10.0)
[2022-03-30] MEDS: VANCOMYCIN/WATER FOR INJ (PEG) 1,000 MG/200 ML BAG IVPB SCH (09:20)
[2022-03-30] MEDS: ENOXAPARIN NA (PORCINE) 40 MG/0.4 ML DISP.SYRIN SQ SCH (09:20)
[2022-03-30] MEDS: MULTIVIT-MINERALS ORAL LIQUID PO SCH (09:20)
[2022-03-30 09:21] LABS: CALCIUM 9.1 mg/dL (8.5-10.1)
[2022-03-30] MEDS: ASCORBIC ACID 500 MG/5 ML GT SCH ×2 (09:21→21:35)
[2022-03-30] MEDS: ZINC SULFATE 220 MG CAPSULE (FP) PO SCH (09:21)
[2022-03-30 09:22] LABS: BLOOD UREA NITROGEN 12.6 mg/dL (7-18); MAGNESIUM 1.9 mg/dL (1.8-2.4)
[2022-03-30] MEDS: methylPREDNISolone NA SUCC 40 MG/1 ML VIAL IVPUSH SCH (09:23)
[2022-03-30] MEDS: PANTOPRAZOLE SODIUM 40 MG VIAL IVPUSH SCH (09:23)
[2022-03-30] MEDS: NYSTATIN 100,000 UNIT/GM TOPICAL CREAM 15 GM TUBE TP SCH ×2 (09:23→21:35)
[2022-03-30 09:24] LABS: CREATININE 0.8 mg/dL (0.55-1.3)
[2022-03-30] MEDS: ABACAVIR/DOLUTEGRAVIR/LAMIVUDI (TRIUMEQ) TABLET -NF PO SCH (09:24)
[2022-03-30 09:26] LABS: BILIRUBIN,TOTAL 0.5 mg/dL (0.2-1)
[2022-03-30 09:27] LABS: PHOSPHOROUS 4.6 mg/dL (2.5-4.9)
[2022-03-30 09:29] LABS: TOT PROT 6.5 g/dl (6.4-8.2)
[2022-03-30] MEDS: ATORVASTATIN CA 10 MG TABLET (FP) PO SCH (21:36)
[2022-03-31] MEDS: ACETYLCYSTEINE 20% 200MG/ML 4 ML VIAL *FOR ORAL / INH USE ONLY IH SCH ×6 (00:02→20:35)
[2022-03-31] MEDS: CEFEPIME 1 GM in DEXTROSE 5%-WATER 100 ML IVPB SCH ×2 (01:17→11:02)
[2022-03-31] MEDS: LEVOTHYROXINE NA 125 MCG TABLET (FP) PO SCH (06:03)
[2022-03-31] MEDS: methaDONE 40 MG, methaDONE 30 MG PO SCH (06:03)
[2022-03-31 07:48] LABS: BILIRUBIN,TOTAL 0.5 mg/dL (0.2-1); TOT PROT 6.1 g/dl (6.4-8.2)
[2022-03-31 08:19] LABS: HEMATOCRIT 29.7 % (32.4-45.2); HEMOGLOBIN 9.5 GM/dL (10.7-15.3); MEAN CELL VOLUME 93.9 fl (80-96); MEAN PLT VOLUME 8.5 fl (7.5-11.1); PLATELET COUNT 238 10^3/uL (134-434); RBC 3.16 M/mm3 (3.60-5.2); RDW 17.4 % (11.6-15.6); WHITE BLOOD COUNT 10.5 K/mm3 (4.0-10.0)
[2022-03-31 09:28] LABS: CALCIUM 9.1 mg/dL (8.5-10.1)
[2022-03-31 09:29] LABS: ALBUMIN 2.9 g/dl (3.4-5.0); BLOOD UREA NITROGEN 14.5 mg/dL (7-18)
[2022-03-31 09:38] LABS: CREATININE 0.8 mg/dL (0.55-1.3)
[2022-03-31] MEDS: ENOXAPARIN NA (PORCINE) 40 MG/0.4 ML DISP.SYRIN SQ SCH (09:50)
[2022-03-31] MEDS: VANCOMYCIN/WATER FOR INJ (PEG) 1,000 MG/200 ML BAG IVPB SCH ×3 (09:50→12:56)
[2022-03-31] MEDS: PANTOPRAZOLE SODIUM 40 MG VIAL IVPUSH SCH ×2 (09:51→10:41)
[2022-03-31] MEDS: ZINC SULFATE 220 MG CAPSULE (FP) PO SCH (09:51)
[2022-03-31] MEDS: methylPREDNISolone NA SUCC 40 MG/1 ML VIAL IVPUSH SCH ×2 (09:51→10:49)
[2022-03-31] MEDS: ABACAVIR/DOLUTEGRAVIR/LAMIVUDI (TRIUMEQ) TABLET -NF PO SCH (09:52)
[2022-03-31] MEDS: MULTIVIT-MINERALS ORAL LIQUID PO SCH ×2 (09:52→09:57)
[2022-03-31] MEDS: ASCORBIC ACID 500 MG/5 ML GT SCH ×3 (09:53→21:32)
[2022-03-31] MEDS: NYSTATIN 100,000 UNIT/GM TOPICAL CREAM 15 GM TUBE TP SCH ×2 (09:55→21:29)
[2022-03-31] MEDS: ALBUTEROL SO4 0.083% IH SOL 2.5 MG/3 ML VIAL.NEB. NEB PRN (20:33)
[2022-03-31] MEDS: ATORVASTATIN CA 10 MG TABLET (FP) PO SCH (21:32)
[2022-04-01] MEDS: ACETYLCYSTEINE 20% 200MG/ML 4 ML VIAL *FOR ORAL / INH USE ONLY IH SCH ×6 (00:24→20:00)
[2022-04-01] MEDS: methaDONE 40 MG, methaDONE 30 MG PO SCH (06:04)
[2022-04-01] MEDS: LEVOTHYROXINE NA 125 MCG TABLET (FP) PO SCH (06:05)
[2022-04-01] MEDS: ALBUTEROL SO4 0.083% IH SOL 2.5 MG/3 ML VIAL.NEB. NEB PRN ×4 (07:50→20:00)
[2022-04-01] MEDS: ENOXAPARIN NA (PORCINE) 40 MG/0.4 ML DISP.SYRIN SQ SCH (10:59)
[2022-04-01] MEDS: ZINC SULFATE 220 MG CAPSULE (FP) PO SCH (10:59)
[2022-04-01] MEDS: ABACAVIR/DOLUTEGRAVIR/LAMIVUDI (TRIUMEQ) TABLET -NF PO SCH (10:59)
[2022-04-01] MEDS: ASCORBIC ACID 500 MG/5 ML GT SCH ×2 (11:00→23:05)
[2022-04-01] MEDS: MULTIVIT-MINERALS ORAL LIQUID PO SCH (11:00)
[2022-04-01] MEDS: NYSTATIN 100,000 UNIT/GM TOPICAL CREAM 15 GM TUBE TP SCH ×3 (11:01→23:05)
[2022-04-01] MEDS: predniSONE 20 MG TABLET (UD) PO SCH (12:59)
[2022-04-01] MEDS: amLODIPine BESYLATE 5 MG TABLET (FP) PO SCH (12:59)
[2022-04-01] MEDS: metoPROLOL SUCCINATE 25 MG TAB.SR.24H (FP) PO SCH (12:59)
[2022-04-01] MEDS: PANTOPRAZOLE SODIUM 40 MG VIAL IVPUSH SCH (13:14)
[2022-04-01] MEDS: methylPREDNISolone NA SUCC 40 MG/1 ML VIAL IVPUSH SCH (13:14)
[2022-04-01] MEDS: ATORVASTATIN CA 10 MG TABLET (FP) PO SCH (23:05)
[2022-04-02] MEDS: ASCORBIC ACID 500 MG/5 ML GT SCH ×3 (00:56→22:55)
[2022-04-02] MEDS: ACETYLCYSTEINE 20% 200MG/ML 4 ML VIAL *FOR ORAL / INH USE ONLY IH SCH ×6 (04:00→20:12)
[2022-04-02] MEDS: LEVOTHYROXINE NA 125 MCG TABLET (FP) PO SCH (06:42)
[2022-04-02] MEDS: methaDONE 40 MG, methaDONE 30 MG PO SCH (06:42)
[2022-04-02] MEDS: ALBUTEROL SO4 0.083% IH SOL 2.5 MG/3 ML VIAL.NEB. NEB PRN ×5 (08:55→20:13)
[2022-04-02 09:38] LABS: HEMATOCRIT 32.1 % (32.4-45.2); MCH 29.7 pg (25.7-33.7); MCHC 31.3 g/dl (32.0-36.0); MEAN PLT VOLUME 8.2 fl (7.5-11.1); PLATELET COUNT 259 10^3/uL (134-434); RBC 3.38 M/mm3 (3.60-5.2); RDW 17.3 % (11.6-15.6); WHITE BLOOD COUNT 12.1 K/mm3 (4.0-10.0)
[2022-04-02 09:55] LABS: BLOOD UREA NITROGEN 13.9 mg/dL (7-18); CALCIUM 9.2 mg/dL (8.5-10.1)
[2022-04-02 09:57] LABS: CREATININE 0.8 mg/dL (0.55-1.3)
[2022-04-02 09:59] LABS: BILIRUBIN,TOTAL 0.2 mg/dL (0.2-1); TOT PROT 6.5 g/dl (6.4-8.2)
[2022-04-02] MEDS: ENOXAPARIN NA (PORCINE) 40 MG/0.4 ML DISP.SYRIN SQ SCH (10:35)
[2022-04-02] MEDS: predniSONE 20 MG TABLET (UD) PO SCH (10:35)
[2022-04-02] MEDS: ZINC SULFATE 220 MG CAPSULE (FP) PO SCH (10:35)
[2022-04-02] MEDS: ABACAVIR/DOLUTEGRAVIR/LAMIVUDI (TRIUMEQ) TABLET -NF PO SCH (10:36)
[2022-04-02] MEDS: metoPROLOL SUCCINATE 25 MG TAB.SR.24H (FP) PO SCH (10:42)
[2022-04-02] MEDS: amLODIPine BESYLATE 5 MG TABLET (FP) PO SCH (10:42)
[2022-04-02] MEDS: MULTIVIT-MINERALS ORAL LIQUID PO SCH (10:48)
[2022-04-02] MEDS: NYSTATIN 100,000 UNIT/GM TOPICAL CREAM 15 GM TUBE TP SCH ×2 (10:48→22:55)
[2022-04-02] MEDS: ATORVASTATIN CA 10 MG TABLET (FP) PO SCH (22:55)
[2022-04-03] MEDS: ALBUTEROL SO4 0.083% IH SOL 2.5 MG/3 ML VIAL.NEB. NEB PRN ×6 (00:12→20:34)
[2022-04-03] MEDS: ACETYLCYSTEINE 20% 200MG/ML 4 ML VIAL *FOR ORAL / INH USE ONLY IH SCH ×6 (00:12→20:34)
[2022-04-03] MEDS: methaDONE 40 MG, methaDONE 30 MG PO SCH (06:26)
[2022-04-03] MEDS: LEVOTHYROXINE NA 125 MCG TABLET (FP) PO SCH (06:26)
[2022-04-03 08:30] LABS: HEMATOCRIT 32.5 % (32.4-45.2); MCHC 30.6 g/dl (32.0-36.0); MEAN CELL VOLUME 94.6 fl (80-96); MEAN PLT VOLUME 8.1 fl (7.5-11.1); PLATELET COUNT 257 10^3/uL (134-434); RBC 3.44 M/mm3 (3.60-5.2); RDW 17.3 % (11.6-15.6); WHITE BLOOD COUNT 11.9 K/mm3 (4.0-10.0)
[2022-04-03 08:53] LABS: BLOOD UREA NITROGEN 15.7 mg/dL (7-18); CALCIUM 9.2 mg/dL (8.5-10.1)
[2022-04-03 08:57] LABS: CREATININE 0.8 mg/dL (0.55-1.3)
[2022-04-03] MEDS: ENOXAPARIN NA (PORCINE) 40 MG/0.4 ML DISP.SYRIN SQ SCH (10:53)
[2022-04-03] MEDS: predniSONE 20 MG TABLET (UD) PO SCH (10:54)
[2022-04-03] MEDS: ABACAVIR/DOLUTEGRAVIR/LAMIVUDI (TRIUMEQ) TABLET -NF PO SCH (10:54)
[2022-04-03] MEDS: metoPROLOL SUCCINATE 25 MG TAB.SR.24H (FP) PO SCH (10:54)
[2022-04-03] MEDS: ZINC SULFATE 220 MG CAPSULE (FP) PO SCH (10:54)
[2022-04-03] MEDS: amLODIPine BESYLATE 5 MG TABLET (FP) PO SCH (10:54)
[2022-04-03] MEDS: ASCORBIC ACID 500 MG/5 ML GT SCH ×2 (10:55→23:15)
[2022-04-03] MEDS: MULTIVIT-MINERALS ORAL LIQUID PO SCH (10:55)
[2022-04-03] MEDS: NYSTATIN 100,000 UNIT/GM TOPICAL CREAM 15 GM TUBE TP SCH ×2 (10:56→23:15)
[2022-04-03] MEDS: ATORVASTATIN CA 10 MG TABLET (FP) PO SCH (23:43)
[2022-04-04] MEDS: ACETYLCYSTEINE 20% 200MG/ML 4 ML VIAL *FOR ORAL / INH USE ONLY IH SCH ×7 (01:08→23:50)
[2022-04-04] MEDS: ALBUTEROL SO4 0.083% IH SOL 2.5 MG/3 ML VIAL.NEB. NEB PRN ×6 (01:08→23:50)
[2022-04-04] MEDS: LEVOTHYROXINE NA 125 MCG TABLET (FP) PO SCH (06:58)
[2022-04-04] MEDS: methaDONE 40 MG, methaDONE 30 MG PO SCH (06:58)
[2022-04-04] MEDS: ENOXAPARIN NA (PORCINE) 40 MG/0.4 ML DISP.SYRIN SQ SCH (09:52)
[2022-04-04] MEDS: ZINC SULFATE 220 MG CAPSULE (FP) PO SCH (09:53)
[2022-04-04] MEDS: predniSONE 20 MG TABLET (UD) PO SCH (09:53)
[2022-04-04] MEDS: amLODIPine BESYLATE 5 MG TABLET (FP) PO SCH (09:53)
[2022-04-04] MEDS: ABACAVIR/DOLUTEGRAVIR/LAMIVUDI (TRIUMEQ) TABLET -NF PO SCH (09:53)
[2022-04-04] MEDS: metoPROLOL SUCCINATE 25 MG TAB.SR.24H (FP) PO SCH (09:53)
[2022-04-04] MEDS: MULTIVIT-MINERALS ORAL LIQUID PO SCH (09:54)
[2022-04-04] MEDS: ASCORBIC ACID 500 MG/5 ML GT SCH ×2 (09:54→22:24)
[2022-04-04] MEDS: NYSTATIN 100,000 UNIT/GM TOPICAL CREAM 15 GM TUBE TP SCH ×2 (09:54→22:24)
[2022-04-04 10:37] LABS: HEMATOCRIT 30.9 % (32.4-45.2); HEMOGLOBIN 9.5 GM/dL (10.7-15.3); MCH 29.7 pg (25.7-33.7); MCHC 30.9 g/dl (32.0-36.0); MEAN PLT VOLUME 8.9 fl (7.5-11.1); PLATELET COUNT 245 10^3/uL (134-434); RBC 3.21 M/mm3 (3.60-5.2); RDW 17.2 % (11.6-15.6); WHITE BLOOD COUNT 9.2 K/mm3 (4.0-10.0)
[2022-04-04 10:42] LABS: CALCIUM 8.9 mg/dL (8.5-10.1)
[2022-04-04 10:43] LABS: ALBUMIN 2.8 g/dl (3.4-5.0); BLOOD UREA NITROGEN 14.6 mg/dL (7-18); CREATININE 0.8 mg/dL (0.55-1.3)
[2022-04-04 10:45] LABS: BILIRUBIN,TOTAL 0.2 mg/dL (0.2-1)
[2022-04-04 21:49] LABS: HEMATOCRIT 29.8 % (32.4-45.2); HEMOGLOBIN 9.4 GM/dL (10.7-15.3); MCH 30.3 pg (25.7-33.7); MCHC 31.5 g/dl (32.0-36.0); MEAN CELL VOLUME 96.4 fl (80-96); MEAN PLT VOLUME 8.1 fl (7.5-11.1); PLATELET COUNT 233 10^3/uL (134-434); RBC 3.09 M/mm3 (3.60-5.2); RDW 17.7 % (11.6-15.6); WHITE BLOOD COUNT 8.2 K/mm3 (4.0-10.0)
[2022-04-04 22:11] LABS: CALCIUM 8.9 mg/dL (8.5-10.1)
[2022-04-04 22:12] LABS: BLOOD UREA NITROGEN 18.3 mg/dL (7-18)
[2022-04-04 22:15] LABS: CREATININE 0.9 mg/dL (0.55-1.3)
[2022-04-04] MEDS: ATORVASTATIN CA 10 MG TABLET (FP) PO SCH (22:23)
[2022-04-05] MEDS: ALBUTEROL SO4 0.083% IH SOL 2.5 MG/3 ML VIAL.NEB. NEB PRN ×5 (04:48→19:23)
[2022-04-05] MEDS: ACETYLCYSTEINE 20% 200MG/ML 4 ML VIAL *FOR ORAL / INH USE ONLY IH SCH ×5 (04:48→19:23)
[2022-04-05] MEDS: methaDONE 40 MG, methaDONE 30 MG PO SCH (06:04)
[2022-04-05] MEDS: LEVOTHYROXINE NA 125 MCG TABLET (FP) PO SCH (06:09)
[2022-04-05] MEDS: ZINC SULFATE 220 MG CAPSULE (FP) PO SCH (09:48)
[2022-04-05] MEDS: amLODIPine BESYLATE 5 MG TABLET (FP) PO SCH (09:48)
[2022-04-05] MEDS: ENOXAPARIN NA (PORCINE) 40 MG/0.4 ML DISP.SYRIN SQ SCH (09:48)
[2022-04-05] MEDS: metoPROLOL SUCCINATE 25 MG TAB.SR.24H (FP) PO SCH (09:48)
[2022-04-05] MEDS: MULTIVIT-MINERALS ORAL LIQUID PO SCH (09:49)
[2022-04-05] MEDS: ABACAVIR/DOLUTEGRAVIR/LAMIVUDI (TRIUMEQ) TABLET -NF PO SCH (09:49)
[2022-04-05] MEDS: NYSTATIN 100,000 UNIT/GM TOPICAL CREAM 15 GM TUBE TP SCH (09:50)
[2022-04-05] MEDS: ASCORBIC ACID 500 MG/5 ML GT SCH (09:50)
[2022-04-05] MEDS ORDERED: predniSONE 20 MG TABLET (UD) PO SCH ×2 (10:00→10:30)
[2022-04-05 14:41] VITALS: TEMP 98.6
[2022-04-05 19:24] VITALS: PULSE 87
[2022-04-05 20:48] VITALS: BP 159/100; RESP 18
[2022-04-08] MEDS ORDERED: predniSONE 10 MG TABLET (UD) PO SCH (10:00)
[2022-04-11] MEDS ORDERED: predniSONE 20 MG TABLET (UD) PO SCH (10:00)
[2022-04-14] MEDS ORDERED: predniSONE 10 MG TABLET (UD) PO SCH (10:00)
[2022-04-17] MEDS ORDERED: predniSONE 5 MG TABLET (UD) PO SCH (10:00)
== END 2022-04-05 20:35 | disposition home health service (06) | DRG 974 ==
LOC: JER 19:48 → JERBED 21:02 → JICU 03-19 02:25 → J7W 03-24 20:50
PROVIDERS: ADMIT Internal Medicine Pulmonary Disease; ATTEND Internal Medicine
PROC: 5A1945Z Respiratory Ventilation, 24-96 Consecutive Hours (ICD-10-PCS; principal; 2022-03-19)
DX: J18.9 Pneumonia, unspecified organism (principal); J96.21 Acute and chronic respiratory failure with hypoxia; B20 Human immunodeficiency virus [HIV] disease; J96.22 Acute and chronic respiratory failure with hypercapnia; J44.1 Chronic obstructive pulmonary disease with (acute) exacerbation; F11.20 Opioid dependence, uncomplicated; J90 Pleural effusion, not elsewhere classified; J44.9 Chronic obstructive pulmonary disease, unspecified; E03.9 Hypothyroidism, unspecified; E78.5 Hyperlipidemia, unspecified; F32.A Depression, unspecified; D64.9 Anemia, unspecified; R91.1 Solitary pulmonary nodule; I12.9 Hypertensive chronic kidney disease with stage 1 through stage 4 chronic kidney disease, or unspecified chronic kidney disease; N18.9 Chronic kidney disease, unspecified; E66.9 Obesity, unspecified; Z68.33 Body mass index [BMI] 33.0-33.9, adult; E87.6 Hypokalemia; L89.151 Pressure ulcer of sacral region, stage 1; D72.829 Elevated white blood cell count, unspecified; Z88.0 Allergy status to penicillin; Z99.81 Dependence on supplemental oxygen; Z85.21 Personal history of malignant neoplasm of larynx
CPT/HCPCS: 0241U-QW; 36415; 36600; 71045-TC-FY; 71275-TC; 80048; 80053; 81003; 82803; 83735; 83880; 84100; 84132; 84484; 85025; 85027; 85379; 85610; 85730; 87040; 87070; 87086; 87205; 87899; 93005; 93010; 93306-TC; 94002; 94640; 97116-GP; 97161-GP; 99285-25; G0480; Q9967

== ENCOUNTER 2022-06-10 14:38 | Emergency (ER) | payer OTHER ==
[2022-06-10 15:02] VITALS: RESP 20; TEMP 98.7; BMI 34.0
[2022-06-10] MEDS ORDERED: BEBTELOVIMAB (EUA) 175 MG/2 ML VIAL IVPUSH ONE (15:16)
[2022-06-10] MEDS ORDERED: ALBUTEROL SO4 2.5/IPRATROPIUM 0.5 INH SOL 3 ML VIAL.NEB. NEB ONE ×2 (17:35→17:36)
[2022-06-10 18:22] VITALS: BP 148/98; PULSE 88
== END 2022-06-10 18:23 | disposition home or self-care (01) ==
LOC: JER 14:38
PROC: 3E0F7GC Introduction of Other Therapeutic Substance into Respiratory Tract, Via Natural or Artificial Opening (ICD-10-PCS; principal; 2022-06-10)
PROC: 3E033NZ Introduction of Analgesics, Hypnotics, Sedatives into Peripheral Vein, Percutaneous Approach (ICD-10-PCS; 2022-06-10)
DX: U07.1 COVID-19 (principal)
CPT/HCPCS: 71045-TC-FY; 94640; 96374; 99284-25; M0222; Q0222

== ENCOUNTER 2022-09-29 10:33 | Inpatient (IN) | payer OTHER ==
[2022-09-29] MEDS ORDERED: ALBUTEROL SO4 2.5/IPRATROPIUM 0.5 INH SOL 3 ML VIAL.NEB. NEB ONE (10:53)
[2022-09-29] MEDS ORDERED: methylPREDNISolone NA SUCC 125 MG/2 ML VIAL ONE (10:53)
[2022-09-29] MEDS: ALBUTEROL SO4 2.5/IPRATROPIUM 0.5 INH SOL 3 ML VIAL.NEB. NEB SCH ×3 (11:05→11:33)
[2022-09-29] MEDS ORDERED: MAGNESIUM SULF 50% (8.12 MEQ/2 ML-1 GM VIAL) IVPB ONE (11:19)
[2022-09-29] MEDS ORDERED: methylPREDNISolone NA SUCC 125 MG/2 ML VIAL IVPB ONE (11:20)
[2022-09-29] MEDS ORDERED: MAGNESIUM SULFATE IN WATER 2 GM/50 ML IVPB IVPB ONE (11:22)
[2022-09-29] MEDS ORDERED: AZITHROMYCIN IVPB 500 MG in DEXTROSE 5%-WATER - 250 ML IVPB ONE (12:08)
[2022-09-29] MEDS ORDERED: CEFTRIAXONE 1,000 MG in DEXTROSE 5%-WATER - 50 ML IVPB ONE (12:08)
[2022-09-29 12:22] LABS: BASO % 0.6 % (0-2.0); EOS % 0.1 % (0-4.5); HEMATOCRIT 31.7 % (32.4-45.2); HEMOGLOBIN 9.8 GM/dL (10.7-15.3); LYMPH % 9.7 % (8-40); MCH 27.3 pg (25.7-33.7); MCHC 30.9 g/dl (32.0-36.0); MEAN CELL VOLUME 88.4 fl (80-96); MEAN PLT VOLUME 8.7 fl (7.5-11.1); MONO % 6.6 % (3.8-10.2); PLATELET COUNT 221 10^3/uL (134-434); RBC 3.58 M/mm3 (3.60-5.2); RDW 16.7 % (11.6-15.6); WHITE BLOOD COUNT 8.5 K/mm3 (4.0-10.0)
[2022-09-29] MEDS ORDERED: CEFTRIAXONE 1 GM/50 ML BAG ONE (12:23)
[2022-09-29] MEDS ORDERED: AZITHROMYCIN IVPB 500 MG/250 ML BAG IVPB ONE (12:24)
[2022-09-29 12:26] LABS: INR 1.11 (0.83-1.09); PROTHROMBIN TIME (PATIENT) 12.9 SEC (9.7-13.0)
[2022-09-29 12:29] LABS: ACTIVATED PTT 28.6 SECONDS (25.2-36.5)
[2022-09-29 12:48] LABS: BLOOD UREA NITROGEN 16.2 mg/dL (7-18)
[2022-09-29 12:50] LABS: ALBUMIN 3.4 g/dl (3.4-5.0); CALCIUM 9.3 mg/dL (8.5-10.1); CREATININE 1.3 mg/dL (0.55-1.3); MAGNESIUM 2.1 mg/dL (1.8-2.4); PHOSPHOROUS 3.2 mg/dL (2.5-4.9)
[2022-09-29 12:52] LABS: BILIRUBIN,TOTAL 0.5 mg/dL (0.2-1); TOT PROT 7.4 g/dl (6.4-8.2)
[2022-09-29] MEDS ORDERED: ALBUTEROL SO4 0.083% IH SOL 2.5 MG/3 ML VIAL.NEB. NEB ONE ×3 (13:01→16:34)
[2022-09-29] MEDS ORDERED: ALBUTEROL SO4 0.083% IH SOL 2.5 MG/3 ML VIAL.NEB. NEB PRN (15:10)
[2022-09-29] MEDS ORDERED: ACETYLCYSTEINE 20% 200MG/ML 4 ML VIAL *FOR ORAL / INH USE ONLY ONE (16:39)
[2022-09-29] MEDS: ACETYLCYSTEINE 20% 200MG/ML 4 ML VIAL *FOR ORAL / INH USE ONLY NEB SCH ×2 (16:52→20:22)
[2022-09-29] MEDS: ALBUTEROL SO4 0.083% IH SOL 2.5 MG/3 ML VIAL.NEB. NEB SCH ×2 (16:52→20:22)
[2022-09-29] MEDS ORDERED: SODIUM CHLORIDE 0.9% 1000 ML INFUS.BAG IV ONE (16:53)
[2022-09-29] MEDS ORDERED: SODIUM CHLORIDE 0.9% 500 ML INFUS.BAG IV ONE (17:05)
[2022-09-29] MEDS ORDERED: methylPREDNISolone NA SUCC 40 MG/1 ML VIAL ONE (18:34)
[2022-09-29] MEDS: methylPREDNISolone NA SUCC 40 MG/1 ML VIAL IVPUSH SCH (18:37)
[2022-09-30] MEDS: ATORVASTATIN CA 10 MG TABLET (FP) PO SCH ×2 (02:34→22:25)
[2022-09-30] MEDS: methylPREDNISolone NA SUCC 40 MG/1 ML VIAL IVPUSH SCH ×3 (03:57→18:12)
[2022-09-30] MEDS ORDERED: LEVOTHYROXINE NA 50 MCG TABLET (FP) ONE (06:16)
[2022-09-30] MEDS ORDERED: methylPREDNISolone NA SUCC 40 MG/1 ML VIAL ONE ×3 (06:16→18:16)
[2022-09-30] MEDS ORDERED: LEVOTHYROXINE NA 25 MCG TABLET (FP) ONE (06:16)
[2022-09-30] MEDS: LEVOTHYROXINE NA 125 MCG TABLET (FP) PO SCH (06:24)
[2022-09-30 06:40] LABS: HEMATOCRIT 30.1 % (32.4-45.2); HEMOGLOBIN 9.1 GM/dL (10.7-15.3); MCH 26.7 pg (25.7-33.7); MCHC 30.1 g/dl (32.0-36.0); MEAN CELL VOLUME 88.6 fl (80-96); MEAN PLT VOLUME 9.2 fl (7.5-11.1); PLATELET COUNT 193 10^3/uL (134-434); RDW 16.8 % (11.6-15.6); WHITE BLOOD COUNT 5.6 K/mm3 (4.0-10.0)
[2022-09-30 07:11] LABS: CALCIUM 8.9 mg/dL (8.5-10.1)
[2022-09-30 07:12] LABS: ALBUMIN 3.1 g/dl (3.4-5.0); BLOOD UREA NITROGEN 19.2 mg/dL (7-18)
[2022-09-30 07:15] LABS: CREATININE 1.1 mg/dL (0.55-1.3)
[2022-09-30 07:18] LABS: BILIRUBIN,TOTAL 0.3 mg/dL (0.2-1); TOT PROT 6.9 g/dl (6.4-8.2)
[2022-09-30] MEDS ORDERED: amLODIPine BESYLATE 5 MG TABLET (FP) ONE (08:49)
[2022-09-30] MEDS ORDERED: FUROSEMIDE 40 MG TABLET (FP) ONE (08:49)
[2022-09-30] MEDS ORDERED: ENOXAPARIN NA (PORCINE) 40 MG/0.4 ML DISP.SYRIN SQ ONE (08:50)
[2022-09-30] MEDS ORDERED: metoPROLOL SUCCINATE 25 MG TAB.SR.24H (FP) PO ONE ×2 (08:50→09:16)
[2022-09-30] MEDS ORDERED: POTASSIUM CHLORIDE TABS 20 MEQ TABLET.ER (FP) PO ONE (08:50)
[2022-09-30] MEDS ORDERED: CEFTRIAXONE 1 GM/50 ML BAG ONE (08:50)
[2022-09-30] MEDS ORDERED: ALBUTEROL SO4 0.083% IH SOL 2.5 MG/3 ML VIAL.NEB. NEB ONE (08:50)
[2022-09-30] MEDS ORDERED: AZITHROMYCIN IVPB 500 MG/250 ML BAG IVPB ONE (08:51)
[2022-09-30] MEDS: ACETYLCYSTEINE 20% 200MG/ML 4 ML VIAL *FOR ORAL / INH USE ONLY NEB SCH ×4 (09:36→21:01)
[2022-09-30] MEDS: ALBUTEROL SO4 0.083% IH SOL 2.5 MG/3 ML VIAL.NEB. NEB SCH ×4 (09:36→21:01)
[2022-09-30] MEDS: FUROSEMIDE 40 MG TABLET (FP) PO SCH (09:36)
[2022-09-30] MEDS: ENOXAPARIN NA (PORCINE) 40 MG/0.4 ML DISP.SYRIN SQ SCH (09:36)
[2022-09-30] MEDS: FLUTICASONE PROP 0.05% 16 GM NASAL SPRAY NS SCH (09:36)
[2022-09-30] MEDS: POTASSIUM CHLORIDE TABS 20 MEQ TABLET.ER (FP) PO SCH (09:36)
[2022-09-30] MEDS: ABACAVIR/DOLUTEGRAVIR/LAMIVUDI (TRIUMEQ) TABLET PO SCH (09:37)
[2022-09-30] MEDS: AZITHROMYCIN IVPB 500 MG/250 ML BAG IVPB SCH (09:37)
[2022-09-30] MEDS: amLODIPine BESYLATE 5 MG TABLET (FP) PO SCH (09:37)
[2022-09-30] MEDS: CEFTRIAXONE 1 GM in DEXTROSE 5%-WATER - 50 ML IVPB SCH (09:37)
[2022-09-30] MEDS: metoPROLOL SUCCINATE 25 MG TAB.SR.24H (FP) PO SCH (09:37)
[2022-09-30] MEDS ORDERED: methaDONE HCL 10 MG TABLET PO SCH (10:15)
[2022-09-30] MEDS ORDERED: SODIUM CHLORIDE NASAL SPRAY 44 ML BOTTLE NS SCH (10:15)
[2022-09-30] MEDS ORDERED: methaDONE 40 MG, methaDONE 20 MG PO ONE (10:45)
[2022-09-30] MEDS: methaDONE HCL 10 MG TABLET PO SCH (18:13)
[2022-09-30] MEDS ORDERED: ATORVASTATIN CA 10 MG TABLET (FP) ONE (22:25)
[2022-09-30] MEDS: NYSTATIN 100,000 UNIT/GM TOPICAL CREAM 15 GM TUBE TP SCH (22:26)
[2022-10-01] MEDS: methylPREDNISolone NA SUCC 40 MG/1 ML VIAL IVPUSH SCH ×2 (02:37→11:00)
[2022-10-01] MEDS: LEVOTHYROXINE NA 125 MCG TABLET (FP) PO SCH (06:06)
[2022-10-01] MEDS: methaDONE HCL 10 MG TABLET PO SCH (06:07)
[2022-10-01] MEDS ORDERED: methaDONE HCL 10 MG TABLET PO SCH (08:37)
[2022-10-01 08:39] LABS: HEMOGLOBIN 8.6 GM/dL (10.7-15.3); MCH 26.6 pg (25.7-33.7); MCHC 30.8 g/dl (32.0-36.0); MEAN CELL VOLUME 86.5 fl (80-96); MEAN PLT VOLUME 8.5 fl (7.5-11.1); PLATELET COUNT 211 10^3/uL (134-434); RBC 3.24 M/mm3 (3.60-5.2); RDW 16.5 % (11.6-15.6); WHITE BLOOD COUNT 8.5 K/mm3 (4.0-10.0)
[2022-10-01] MEDS: ALBUTEROL SO4 0.083% IH SOL 2.5 MG/3 ML VIAL.NEB. NEB SCH ×4 (08:52→20:27)
[2022-10-01] MEDS: ACETYLCYSTEINE 20% 200MG/ML 4 ML VIAL *FOR ORAL / INH USE ONLY NEB SCH ×4 (08:52→20:27)
[2022-10-01 08:56] LABS: BLOOD UREA NITROGEN 25.7 mg/dL (7-18); CALCIUM 9.1 mg/dL (8.5-10.1); MAGNESIUM 2.5 mg/dL (1.8-2.4)
[2022-10-01 09:00] LABS: BILIRUBIN,TOTAL 0.4 mg/dL (0.2-1); TOT PROT 6.4 g/dl (6.4-8.2)
[2022-10-01] MEDS: NYSTATIN 100,000 UNIT/GM TOPICAL CREAM 15 GM TUBE TP SCH ×2 (10:49→22:28)
[2022-10-01] MEDS: ENOXAPARIN NA (PORCINE) 40 MG/0.4 ML DISP.SYRIN SQ SCH (11:00)
[2022-10-01] MEDS: metoPROLOL SUCCINATE 25 MG TAB.SR.24H (FP) PO SCH (11:00)
[2022-10-01] MEDS: CEFTRIAXONE 1 GM in DEXTROSE 5%-WATER - 50 ML IVPB SCH (11:03)
[2022-10-01] MEDS: POTASSIUM CHLORIDE TABS 20 MEQ TABLET.ER (FP) PO SCH (11:11)
[2022-10-01] MEDS: methaDONE 40 MG, methaDONE 30 MG PO SCH (11:12)
[2022-10-01 11:34] LABS: ANISOCYTOSIS 0; HELMET CELLS 0; HOWELL-JOLLY BODIES 0; MACROCYTOSIS 0; OVALOCYTE 0; ROULEAU 0; SICKELED CELLS 0; TARGET CELLS 0; TEAR DROP CELLS 0; TOXIC GRANULATION 0
[2022-10-01] MEDS: AZITHROMYCIN IVPB 500 MG/250 ML BAG IVPB SCH (12:24)
[2022-10-01] MEDS: FLUTICASONE PROP 0.05% 16 GM NASAL SPRAY NS SCH (12:26)
[2022-10-01] MEDS: FUROSEMIDE 40 MG TABLET (FP) PO SCH (13:38)
[2022-10-01] MEDS: amLODIPine BESYLATE 5 MG TABLET (FP) PO SCH (13:39)
[2022-10-01] MEDS: ABACAVIR/DOLUTEGRAVIR/LAMIVUDI (TRIUMEQ) TABLET PO SCH (13:39)
[2022-10-01] MEDS: ATORVASTATIN CA 10 MG TABLET (FP) PO SCH (21:31)
[2022-10-02] MEDS: LEVOTHYROXINE NA 125 MCG TABLET (FP) PO SCH (06:11)
[2022-10-02] MEDS: methaDONE 40 MG, methaDONE 30 MG PO SCH (06:12)
[2022-10-02] MEDS: ACETYLCYSTEINE 20% 200MG/ML 4 ML VIAL *FOR ORAL / INH USE ONLY NEB SCH ×4 (08:33→20:04)
[2022-10-02] MEDS: ALBUTEROL SO4 0.083% IH SOL 2.5 MG/3 ML VIAL.NEB. NEB SCH ×4 (08:34→20:04)
[2022-10-02 09:42] LABS: HEMATOCRIT 29.4 % (32.4-45.2); HEMOGLOBIN 9.1 GM/dL (10.7-15.3); MCH 26.9 pg (25.7-33.7); MEAN CELL VOLUME 86.9 fl (80-96); PLATELET COUNT 192 10^3/uL (134-434); RBC 3.38 M/mm3 (3.60-5.2); RDW 16.5 % (11.6-15.6)
[2022-10-02 10:14] LABS: CALCIUM 8.8 mg/dL (8.5-10.1)
[2022-10-02 10:15] LABS: BLOOD UREA NITROGEN 24.5 mg/dL (7-18); MAGNESIUM 2.4 mg/dL (1.8-2.4)
[2022-10-02 10:18] LABS: PHOSPHOROUS 3.4 mg/dL (2.5-4.9)
[2022-10-02] MEDS: methylPREDNISolone NA SUCC 40 MG/1 ML VIAL IVPUSH SCH (10:58)
[2022-10-02] MEDS: metoPROLOL SUCCINATE 25 MG TAB.SR.24H (FP) PO SCH (10:58)
[2022-10-02] MEDS: FUROSEMIDE 40 MG TABLET (FP) PO SCH (10:59)
[2022-10-02] MEDS: amLODIPine BESYLATE 5 MG TABLET (FP) PO SCH (10:59)
[2022-10-02] MEDS: POTASSIUM CHLORIDE TABS 20 MEQ TABLET.ER (FP) PO SCH (10:59)
[2022-10-02] MEDS: ABACAVIR/DOLUTEGRAVIR/LAMIVUDI (TRIUMEQ) TABLET PO SCH (11:01)
[2022-10-02] MEDS: DOXYCYCLINE MONOHYDRATE 25 MG/5 ML SUSPENSION PO SCH ×2 (11:01→18:07)
[2022-10-02] MEDS: CEFTRIAXONE 1 GM in DEXTROSE 5%-WATER - 50 ML IVPB SCH (11:01)
[2022-10-02] MEDS: FLUTICASONE PROP 0.05% 16 GM NASAL SPRAY NS SCH (11:16)
[2022-10-02] MEDS: NYSTATIN 100,000 UNIT/GM TOPICAL CREAM 15 GM TUBE TP SCH ×3 (11:16→22:17)
[2022-10-02] MEDS: ENOXAPARIN NA (PORCINE) 40 MG/0.4 ML DISP.SYRIN SQ SCH (11:21)
[2022-10-02] MEDS: ATORVASTATIN CA 10 MG TABLET (FP) PO SCH (22:17)
[2022-10-03] MEDS: methaDONE 40 MG, methaDONE 30 MG PO SCH (06:00)
[2022-10-03] MEDS: LEVOTHYROXINE NA 125 MCG TABLET (FP) PO SCH (07:11)
[2022-10-03] MEDS: ALBUTEROL SO4 0.083% IH SOL 2.5 MG/3 ML VIAL.NEB. NEB SCH ×4 (07:51→20:00)
[2022-10-03] MEDS: ACETYLCYSTEINE 20% 200MG/ML 4 ML VIAL *FOR ORAL / INH USE ONLY NEB SCH ×4 (07:51→20:00)
[2022-10-03 09:03] LABS: HEMATOCRIT 29.8 % (32.4-45.2); MCH 26.2 pg (25.7-33.7); MCHC 30.2 g/dl (32.0-36.0); MEAN PLT VOLUME 8.8 fl (7.5-11.1); PLATELET COUNT 213 10^3/uL (134-434); RBC 3.42 M/mm3 (3.60-5.2); RDW 16.4 % (11.6-15.6); WHITE BLOOD COUNT 9.1 K/mm3 (4.0-10.0)
[2022-10-03 09:33] LABS: CALCIUM 8.9 mg/dL (8.5-10.1)
[2022-10-03 09:34] LABS: MAGNESIUM 2.1 mg/dL (1.8-2.4)
[2022-10-03 09:37] LABS: CREATININE 0.9 mg/dL (0.55-1.3); PHOSPHOROUS 2.7 mg/dL (2.5-4.9)
[2022-10-03] MEDS: CEFTRIAXONE 1 GM in DEXTROSE 5%-WATER - 50 ML IVPB SCH (09:54)
[2022-10-03] MEDS: ENOXAPARIN NA (PORCINE) 40 MG/0.4 ML DISP.SYRIN SQ SCH (09:54)
[2022-10-03] MEDS: FUROSEMIDE 40 MG TABLET (FP) PO SCH (09:54)
[2022-10-03] MEDS: ABACAVIR/DOLUTEGRAVIR/LAMIVUDI (TRIUMEQ) TABLET PO SCH (09:54)
[2022-10-03] MEDS: POTASSIUM CHLORIDE TABS 20 MEQ TABLET.ER (FP) PO SCH (09:54)
[2022-10-03] MEDS: amLODIPine BESYLATE 5 MG TABLET (FP) PO SCH (09:54)
[2022-10-03] MEDS: FLUTICASONE PROP 0.05% 16 GM NASAL SPRAY NS SCH (09:55)
[2022-10-03] MEDS: metoPROLOL SUCCINATE 25 MG TAB.SR.24H (FP) PO SCH (09:55)
[2022-10-03] MEDS: DOXYCYCLINE MONOHYDRATE 25 MG/5 ML SUSPENSION PO SCH ×2 (09:55→18:10)
[2022-10-03] MEDS: methylPREDNISolone NA SUCC 40 MG/1 ML VIAL IVPUSH SCH (09:55)
[2022-10-03] MEDS: NYSTATIN 100,000 UNIT/GM TOPICAL CREAM 15 GM TUBE TP SCH (09:55)
[2022-10-03] MEDS: ATORVASTATIN CA 10 MG TABLET (FP) PO SCH (21:47)
[2022-10-04] MEDS: methaDONE 40 MG, methaDONE 30 MG PO SCH (06:17)
[2022-10-04] MEDS: LEVOTHYROXINE NA 125 MCG TABLET (FP) PO SCH (06:17)
[2022-10-04] MEDS: NYSTATIN 100,000 UNIT/GM TOPICAL CREAM 15 GM TUBE TP SCH ×4 (06:26→23:38)
[2022-10-04] MEDS: ALBUTEROL SO4 0.083% IH SOL 2.5 MG/3 ML VIAL.NEB. NEB SCH ×4 (08:55→20:06)
[2022-10-04] MEDS: ACETYLCYSTEINE 20% 200MG/ML 4 ML VIAL *FOR ORAL / INH USE ONLY NEB SCH ×4 (08:55→20:07)
[2022-10-04] MEDS: metoPROLOL SUCCINATE 25 MG TAB.SR.24H (FP) PO SCH ×2 (10:04→11:35)
[2022-10-04] MEDS: predniSONE 20 MG TABLET (UD) PO SCH (10:04)
[2022-10-04] MEDS: POTASSIUM CHLORIDE TABS 20 MEQ TABLET.ER (FP) PO SCH (10:04)
[2022-10-04] MEDS: amLODIPine BESYLATE 5 MG TABLET (FP) PO SCH ×2 (10:04→11:35)
[2022-10-04] MEDS: FUROSEMIDE 40 MG TABLET (FP) PO SCH ×2 (10:05→11:35)
[2022-10-04] MEDS: ENOXAPARIN NA (PORCINE) 40 MG/0.4 ML DISP.SYRIN SQ SCH (10:05)
[2022-10-04] MEDS: DOXYCYCLINE MONOHYDRATE 25 MG/5 ML SUSPENSION PO SCH ×2 (10:06→17:32)
[2022-10-04] MEDS: CEFTRIAXONE 1 GM in DEXTROSE 5%-WATER - 50 ML IVPB SCH (10:07)
[2022-10-04] MEDS: ABACAVIR/DOLUTEGRAVIR/LAMIVUDI (TRIUMEQ) TABLET PO SCH (10:07)
[2022-10-04] MEDS: FLUTICASONE PROP 0.05% 16 GM NASAL SPRAY NS SCH ×2 (10:09→11:35)
[2022-10-04 10:15] LABS: HEMATOCRIT 32.9 % (32.4-45.2); HEMOGLOBIN 9.7 GM/dL (10.7-15.3); MCH 25.5 pg (25.7-33.7); MCHC 29.3 g/dl (32.0-36.0); PLATELET COUNT 223 10^3/uL (134-434); RBC 3.78 M/mm3 (3.60-5.2); RDW 16.3 % (11.6-15.6); WHITE BLOOD COUNT 10.4 K/mm3 (4.0-10.0)
[2022-10-04 10:28] LABS: CALCIUM 9.1 mg/dL (8.5-10.1)
[2022-10-04 10:31] LABS: BLOOD UREA NITROGEN 18.8 mg/dL (7-18)
[2022-10-04 10:32] LABS: PHOSPHOROUS 3.9 mg/dL (2.5-4.9)
[2022-10-04] MEDS: FOLIC ACID 1 MG TABLET (FP) PO SCH (14:22)
[2022-10-04] MEDS: ATORVASTATIN CA 10 MG TABLET (FP) PO SCH (21:03)
[2022-10-05] MEDS: LEVOTHYROXINE NA 125 MCG TABLET (FP) PO SCH (06:18)
[2022-10-05] MEDS: methaDONE 40 MG, methaDONE 30 MG PO SCH (06:18)
[2022-10-05] MEDS: ALBUTEROL SO4 0.083% IH SOL 2.5 MG/3 ML VIAL.NEB. NEB SCH ×4 (08:17→22:01)
[2022-10-05] MEDS: ACETYLCYSTEINE 20% 200MG/ML 4 ML VIAL *FOR ORAL / INH USE ONLY NEB SCH ×4 (08:17→22:01)
[2022-10-05 09:47] LABS: HEMOGLOBIN 10.5 GM/dL (10.7-15.3); MCH 26.8 pg (25.7-33.7); MCHC 30.9 g/dl (32.0-36.0); MEAN CELL VOLUME 86.6 fl (80-96); MEAN PLT VOLUME 8.4 fl (7.5-11.1); PLATELET COUNT 204 10^3/uL (134-434); RBC 3.93 M/mm3 (3.60-5.2); RDW 16.6 % (11.6-15.6); WHITE BLOOD COUNT 12.5 K/mm3 (4.0-10.0)
[2022-10-05] MEDS: predniSONE 20 MG TABLET (UD) PO SCH (10:00)
[2022-10-05 10:05] LABS: CALCIUM 8.9 mg/dL (8.5-10.1)
[2022-10-05 10:06] LABS: BLOOD UREA NITROGEN 15.2 mg/dL (7-18)
[2022-10-05] MEDS: FUROSEMIDE 40 MG TABLET (FP) PO SCH (10:07)
[2022-10-05] MEDS: metoPROLOL SUCCINATE 25 MG TAB.SR.24H (FP) PO SCH (10:07)
[2022-10-05] MEDS: FOLIC ACID 1 MG TABLET (FP) PO SCH (10:07)
[2022-10-05] MEDS: amLODIPine BESYLATE 5 MG TABLET (FP) PO SCH (10:07)
[2022-10-05] MEDS: POTASSIUM CHLORIDE TABS 20 MEQ TABLET.ER (FP) PO SCH (10:08)
[2022-10-05] MEDS: CEFTRIAXONE 1 GM in DEXTROSE 5%-WATER - 50 ML IVPB SCH (10:08)
[2022-10-05] MEDS: ENOXAPARIN NA (PORCINE) 40 MG/0.4 ML DISP.SYRIN SQ SCH (10:08)
[2022-10-05] MEDS: ABACAVIR/DOLUTEGRAVIR/LAMIVUDI (TRIUMEQ) TABLET PO SCH (10:08)
[2022-10-05 10:09] LABS: CREATININE 0.9 mg/dL (0.55-1.3); PHOSPHOROUS 4.2 mg/dL (2.5-4.9)
[2022-10-05] MEDS: DOXYCYCLINE MONOHYDRATE 25 MG/5 ML SUSPENSION PO SCH ×2 (10:09→18:21)
[2022-10-05] MEDS: FLUTICASONE PROP 0.05% 16 GM NASAL SPRAY NS SCH (10:26)
[2022-10-05] MEDS: NYSTATIN 100,000 UNIT/GM TOPICAL CREAM 15 GM TUBE TP SCH ×2 (10:26→21:42)
[2022-10-05] MEDS: FUROSEMIDE 40 MG/4 ML INJECTABLE VIAL IVPUSH SCH (14:56)
[2022-10-05] MEDS: ATORVASTATIN CA 10 MG TABLET (FP) PO SCH (21:42)
[2022-10-06] MEDS: methaDONE 40 MG, methaDONE 30 MG PO SCH (06:08)
[2022-10-06] MEDS: LEVOTHYROXINE NA 125 MCG TABLET (FP) PO SCH (06:09)
[2022-10-06] MEDS: ACETYLCYSTEINE 20% 200MG/ML 4 ML VIAL *FOR ORAL / INH USE ONLY NEB SCH ×4 (07:59→21:30)
[2022-10-06] MEDS: ALBUTEROL SO4 0.083% IH SOL 2.5 MG/3 ML VIAL.NEB. NEB SCH ×4 (07:59→21:35)
[2022-10-06 08:43] LABS: BLOOD UREA NITROGEN 21.8 mg/dL (7-18); MAGNESIUM 1.9 mg/dL (1.8-2.4)
[2022-10-06 08:45] LABS: PHOSPHOROUS 4.2 mg/dL (2.5-4.9)
[2022-10-06 08:46] LABS: HEMATOCRIT 31.3 % (32.4-45.2); HEMOGLOBIN 9.5 GM/dL (10.7-15.3); MCH 26.2 pg (25.7-33.7); MCHC 30.3 g/dl (32.0-36.0); MEAN CELL VOLUME 86.4 fl (80-96); MEAN PLT VOLUME 8.6 fl (7.5-11.1); PLATELET COUNT 199 10^3/uL (134-434); RBC 3.62 M/mm3 (3.60-5.2); RDW 16.7 % (11.6-15.6); WHITE BLOOD COUNT 9.8 K/mm3 (4.0-10.0)
[2022-10-06] MEDS: POTASSIUM CHLORIDE TABS 20 MEQ TABLET.ER (FP) PO SCH (10:35)
[2022-10-06] MEDS: ENOXAPARIN NA (PORCINE) 40 MG/0.4 ML DISP.SYRIN SQ SCH (10:35)
[2022-10-06] MEDS: FUROSEMIDE 40 MG/4 ML INJECTABLE VIAL IVPUSH SCH (10:35)
[2022-10-06] MEDS: CEFTRIAXONE 1 GM in DEXTROSE 5%-WATER - 50 ML IVPB SCH (10:39)
[2022-10-06] MEDS: metoPROLOL SUCCINATE 25 MG TAB.SR.24H (FP) PO SCH (10:39)
[2022-10-06] MEDS: FOLIC ACID 1 MG TABLET (FP) PO SCH (10:40)
[2022-10-06] MEDS: predniSONE 20 MG TABLET (UD) PO SCH (10:40)
[2022-10-06] MEDS: ABACAVIR/DOLUTEGRAVIR/LAMIVUDI (TRIUMEQ) TABLET PO SCH (10:41)
[2022-10-06] MEDS: amLODIPine BESYLATE 5 MG TABLET (FP) PO SCH (10:41)
[2022-10-06] MEDS: DOXYCYCLINE MONOHYDRATE 25 MG/5 ML SUSPENSION PO SCH ×2 (10:42→17:45)
[2022-10-06] MEDS: FLUTICASONE PROP 0.05% 16 GM NASAL SPRAY NS SCH ×2 (10:53→11:03)
[2022-10-06] MEDS: NYSTATIN 100,000 UNIT/GM TOPICAL CREAM 15 GM TUBE TP SCH ×3 (11:02→21:40)
[2022-10-06] MEDS: ATORVASTATIN CA 10 MG TABLET (FP) PO SCH (21:39)
[2022-10-07] MEDS: methaDONE 40 MG, methaDONE 30 MG PO SCH (06:30)
[2022-10-07] MEDS: LEVOTHYROXINE NA 125 MCG TABLET (FP) PO SCH (06:30)
[2022-10-07] MEDS: ALBUTEROL SO4 0.083% IH SOL 2.5 MG/3 ML VIAL.NEB. NEB SCH ×4 (07:41→20:25)
[2022-10-07] MEDS: ACETYLCYSTEINE 20% 200MG/ML 4 ML VIAL *FOR ORAL / INH USE ONLY NEB SCH ×4 (07:41→20:25)
[2022-10-07 08:42] LABS: HEMATOCRIT 33.3 % (32.4-45.2); MCH 25.9 pg (25.7-33.7); MEAN CELL VOLUME 86.4 fl (80-96); MEAN PLT VOLUME 9.3 fl (7.5-11.1); PLATELET COUNT 241 10^3/uL (134-434); RBC 3.85 M/mm3 (3.60-5.2); RDW 16.1 % (11.6-15.6); WHITE BLOOD COUNT 9.9 K/mm3 (4.0-10.0)
[2022-10-07 09:40] LABS: CALCIUM 9.2 mg/dL (8.5-10.1)
[2022-10-07 09:41] LABS: MAGNESIUM 1.9 mg/dL (1.8-2.4)
[2022-10-07 09:43] LABS: PHOSPHOROUS 3.6 mg/dL (2.5-4.9)
[2022-10-07] MEDS: FOLIC ACID 1 MG TABLET (FP) PO SCH (10:41)
[2022-10-07] MEDS: predniSONE 20 MG TABLET (UD) PO SCH (10:41)
[2022-10-07] MEDS: POTASSIUM CHLORIDE TABS 20 MEQ TABLET.ER (FP) PO SCH (10:41)
[2022-10-07] MEDS: ABACAVIR/DOLUTEGRAVIR/LAMIVUDI (TRIUMEQ) TABLET PO SCH (10:42)
[2022-10-07] MEDS: DOXYCYCLINE MONOHYDRATE 25 MG/5 ML SUSPENSION PO SCH ×2 (10:44→18:08)
[2022-10-07] MEDS: FUROSEMIDE 40 MG/4 ML INJECTABLE VIAL IVPUSH SCH (10:44)
[2022-10-07] MEDS: CEFTRIAXONE 1 GM in DEXTROSE 5%-WATER - 50 ML IVPB SCH (10:47)
[2022-10-07] MEDS: ENOXAPARIN NA (PORCINE) 40 MG/0.4 ML DISP.SYRIN SQ SCH (10:53)
[2022-10-07] MEDS: amLODIPine BESYLATE 5 MG TABLET (FP) PO SCH (11:06)
[2022-10-07] MEDS: metoPROLOL SUCCINATE 25 MG TAB.SR.24H (FP) PO SCH (11:07)
[2022-10-07] MEDS: NYSTATIN 100,000 UNIT/GM TOPICAL CREAM 15 GM TUBE TP SCH ×2 (11:27→22:38)
[2022-10-07] MEDS: FLUTICASONE PROP 0.05% 16 GM NASAL SPRAY NS SCH (11:27)
[2022-10-07] MEDS: ATORVASTATIN CA 10 MG TABLET (FP) PO SCH (22:38)
[2022-10-08] MEDS: LEVOTHYROXINE NA 125 MCG TABLET (FP) PO SCH (06:32)
[2022-10-08] MEDS: methaDONE 40 MG, methaDONE 30 MG PO SCH (06:32)
[2022-10-08] MEDS: ALBUTEROL SO4 0.083% IH SOL 2.5 MG/3 ML VIAL.NEB. NEB SCH ×4 (08:15→20:45)
[2022-10-08] MEDS: ACETYLCYSTEINE 20% 200MG/ML 4 ML VIAL *FOR ORAL / INH USE ONLY NEB SCH ×4 (08:15→20:45)
[2022-10-08 09:27] LABS: VENOUS BASE EXCESS 12.3 mmol/L (-2-2); VENOUS O2 SATURATION 85.3 % (70-80); VENOUS PH 7.317 (7.310-7.410)
[2022-10-08 09:39] LABS: HEMATOCRIT 33.5 % (32.4-45.2); HEMOGLOBIN 9.9 GM/dL (10.7-15.3); MCH 25.4 pg (25.7-33.7); MCHC 29.5 g/dl (32.0-36.0); MEAN CELL VOLUME 86.1 fl (80-96); MEAN PLT VOLUME 8.7 fl (7.5-11.1); PLATELET COUNT 226 10^3/uL (134-434); RBC 3.89 M/mm3 (3.60-5.2); RDW 16.9 % (11.6-15.6); WHITE BLOOD COUNT 11.1 K/mm3 (4.0-10.0)
[2022-10-08] MEDS: predniSONE 20 MG TABLET (UD) PO SCH (09:45)
[2022-10-08] MEDS: amLODIPine BESYLATE 5 MG TABLET (FP) PO SCH (09:45)
[2022-10-08] MEDS: metoPROLOL SUCCINATE 25 MG TAB.SR.24H (FP) PO SCH (09:46)
[2022-10-08] MEDS: FOLIC ACID 1 MG TABLET (FP) PO SCH (09:46)
[2022-10-08] MEDS: POTASSIUM CHLORIDE TABS 20 MEQ TABLET.ER (FP) PO SCH (09:46)
[2022-10-08] MEDS: FUROSEMIDE 40 MG/4 ML INJECTABLE VIAL IVPUSH SCH (09:48)
[2022-10-08] MEDS: CEFTRIAXONE 1 GM in DEXTROSE 5%-WATER - 50 ML IVPB SCH (09:48)
[2022-10-08] MEDS: DOXYCYCLINE MONOHYDRATE 25 MG/5 ML SUSPENSION PO SCH ×2 (09:48→17:51)
[2022-10-08] MEDS: ENOXAPARIN NA (PORCINE) 40 MG/0.4 ML DISP.SYRIN SQ SCH (09:49)
[2022-10-08] MEDS: ABACAVIR/DOLUTEGRAVIR/LAMIVUDI (TRIUMEQ) TABLET PO SCH (09:49)
[2022-10-08] MEDS: FLUTICASONE PROP 0.05% 16 GM NASAL SPRAY NS SCH (09:50)
[2022-10-08] MEDS: NYSTATIN 100,000 UNIT/GM TOPICAL CREAM 15 GM TUBE TP SCH ×2 (09:50→22:25)
[2022-10-08 10:06] LABS: CALCIUM 9.5 mg/dL (8.5-10.1)
[2022-10-08 10:07] LABS: MAGNESIUM 2.1 mg/dL (1.8-2.4)
[2022-10-08 10:09] LABS: PHOSPHOROUS 4.2 mg/dL (2.5-4.9)
[2022-10-08 16:14] VITALS: BMI 33.0
[2022-10-08] MEDS: ATORVASTATIN CA 10 MG TABLET (FP) PO SCH (22:23)
[2022-10-09] MEDS: methaDONE 40 MG, methaDONE 30 MG PO SCH (06:09)
[2022-10-09] MEDS: LEVOTHYROXINE NA 125 MCG TABLET (FP) PO SCH (06:09)
[2022-10-09] MEDS: ACETYLCYSTEINE 20% 200MG/ML 4 ML VIAL *FOR ORAL / INH USE ONLY NEB SCH ×2 (08:05→11:15)
[2022-10-09] MEDS: ALBUTEROL SO4 0.083% IH SOL 2.5 MG/3 ML VIAL.NEB. NEB SCH ×4 (08:05→21:19)
[2022-10-09 09:16] LABS: BASO % 0.2 % (0-2.0); EOS % 0.5 % (0-4.5); HEMATOCRIT 33.1 % (32.4-45.2); LYMPH % 17.2 % (8-40); MCH 26.2 pg (25.7-33.7); MCHC 30.3 g/dl (32.0-36.0); MEAN CELL VOLUME 86.3 fl (80-96); MEAN PLT VOLUME 9.2 fl (7.5-11.1); MONO % 10.7 % (3.8-10.2); NEUT % 71.4 % (42.8-82.8); PLATELET COUNT 243 10^3/uL (134-434); RBC 3.83 M/mm3 (3.60-5.2); RDW 16.4 % (11.6-15.6)
[2022-10-09 09:42] LABS: CALCIUM 9.4 mg/dL (8.5-10.1)
[2022-10-09 09:43] LABS: BLOOD UREA NITROGEN 26.3 mg/dL (7-18)
[2022-10-09] MEDS: ABACAVIR/DOLUTEGRAVIR/LAMIVUDI (TRIUMEQ) TABLET PO SCH (09:51)
[2022-10-09] MEDS: CEFTRIAXONE 1 GM in DEXTROSE 5%-WATER - 50 ML IVPB SCH (09:51)
[2022-10-09] MEDS: ENOXAPARIN NA (PORCINE) 40 MG/0.4 ML DISP.SYRIN SQ SCH (09:51)
[2022-10-09] MEDS: FOLIC ACID 1 MG TABLET (FP) PO SCH (09:52)
[2022-10-09] MEDS: POTASSIUM CHLORIDE TABS 20 MEQ TABLET.ER (FP) PO SCH (09:52)
[2022-10-09] MEDS: FUROSEMIDE 40 MG/4 ML INJECTABLE VIAL IVPUSH SCH (09:52)
[2022-10-09] MEDS: predniSONE 20 MG TABLET (UD) PO SCH (09:52)
[2022-10-09] MEDS: FLUTICASONE PROP 0.05% 16 GM NASAL SPRAY NS SCH ×2 (09:52→10:48)
[2022-10-09] MEDS: metoPROLOL SUCCINATE 25 MG TAB.SR.24H (FP) PO SCH (09:52)
[2022-10-09] MEDS: amLODIPine BESYLATE 5 MG TABLET (FP) PO SCH (09:52)
[2022-10-09] MEDS: NYSTATIN 100,000 UNIT/GM TOPICAL CREAM 15 GM TUBE TP SCH ×2 (09:53→23:01)
[2022-10-09] MEDS: ATORVASTATIN CA 10 MG TABLET (FP) PO SCH (23:01)
[2022-10-10] MEDS: LEVOTHYROXINE NA 125 MCG TABLET (FP) PO SCH (06:14)
[2022-10-10] MEDS: methaDONE 40 MG, methaDONE 30 MG PO SCH (06:14)
[2022-10-10] MEDS: ALBUTEROL SO4 0.083% IH SOL 2.5 MG/3 ML VIAL.NEB. NEB SCH ×4 (08:35→19:55)
[2022-10-10 09:17] LABS: BASO % 0.2 % (0-2.0); EOS % 0.2 % (0-4.5); HEMATOCRIT 33.4 % (32.4-45.2); HEMOGLOBIN 10.1 GM/dL (10.7-15.3); LYMPH % 17.5 % (8-40); MCH 26.2 pg (25.7-33.7); MCHC 30.3 g/dl (32.0-36.0); MEAN CELL VOLUME 86.3 fl (80-96); MEAN PLT VOLUME 9.5 fl (7.5-11.1); MONO % 10.1 % (3.8-10.2); PLATELET COUNT 236 10^3/uL (134-434); RBC 3.87 M/mm3 (3.60-5.2); RDW 16.6 % (11.6-15.6)
[2022-10-10 09:45] LABS: ALBUMIN 2.9 g/dl (3.4-5.0); BLOOD UREA NITROGEN 23.8 mg/dL (7-18)
[2022-10-10 09:46] LABS: CALCIUM 9.3 mg/dL (8.5-10.1)
[2022-10-10 09:50] LABS: PHOSPHOROUS 3.8 mg/dL (2.5-4.9)
[2022-10-10 09:51] LABS: BILIRUBIN,TOTAL 0.3 mg/dL (0.2-1); TOT PROT 6.5 g/dl (6.4-8.2)
[2022-10-10] MEDS ORDERED: CHOLECALCIFEROL (VIT D3) 1,000 UNIT (25 MCG) TABLET PO SCH (10:00)
[2022-10-10] MEDS: FUROSEMIDE 40 MG/4 ML INJECTABLE VIAL IVPUSH SCH (10:11)
[2022-10-10] MEDS: CEFTRIAXONE 1 GM in DEXTROSE 5%-WATER - 50 ML IVPB SCH (11:04)
[2022-10-10] MEDS: predniSONE 20 MG TABLET (UD) PO SCH (11:04)
[2022-10-10] MEDS: POTASSIUM CHLORIDE TABS 20 MEQ TABLET.ER (FP) PO SCH (11:04)
[2022-10-10] MEDS: metoPROLOL SUCCINATE 25 MG TAB.SR.24H (FP) PO SCH (11:04)
[2022-10-10] MEDS: ENOXAPARIN NA (PORCINE) 40 MG/0.4 ML DISP.SYRIN SQ SCH (11:05)
[2022-10-10] MEDS: FOLIC ACID 1 MG TABLET (FP) PO SCH (11:05)
[2022-10-10] MEDS: amLODIPine BESYLATE 5 MG TABLET (FP) PO SCH ×2 (11:05→11:16)
[2022-10-10] MEDS: FLUTICASONE PROP 0.05% 16 GM NASAL SPRAY NS SCH (11:05)
[2022-10-10] MEDS: ABACAVIR/DOLUTEGRAVIR/LAMIVUDI (TRIUMEQ) TABLET PO SCH (11:09)
[2022-10-10] MEDS: NYSTATIN 100,000 UNIT/GM TOPICAL CREAM 15 GM TUBE TP SCH ×2 (11:12→21:39)
[2022-10-10] MEDS: CHOLECALCIFEROL (VIT D3) 1,000 UNIT (25 MCG) TABLET PO SCH (11:15)
[2022-10-10] MEDS: ATORVASTATIN CA 10 MG TABLET (FP) PO SCH (21:38)
[2022-10-11] MEDS: LEVOTHYROXINE NA 125 MCG TABLET (FP) PO SCH (07:07)
[2022-10-11] MEDS: methaDONE 40 MG, methaDONE 30 MG PO SCH (07:07)
[2022-10-11] MEDS: ALBUTEROL SO4 0.083% IH SOL 2.5 MG/3 ML VIAL.NEB. NEB SCH ×2 (07:57→11:20)
[2022-10-11 09:29] LABS: HEMATOCRIT 32.9 % (32.4-45.2); HEMOGLOBIN 9.8 GM/dL (10.7-15.3); MCHC 29.7 g/dl (32.0-36.0); MEAN CELL VOLUME 87.3 fl (80-96); MEAN PLT VOLUME 8.8 fl (7.5-11.1); PLATELET COUNT 176 10^3/uL (134-434); RBC 3.77 M/mm3 (3.60-5.2); RDW 16.6 % (11.6-15.6); WHITE BLOOD COUNT 9.4 K/mm3 (4.0-10.0)
[2022-10-11] MEDS: CEFTRIAXONE 1 GM in DEXTROSE 5%-WATER - 50 ML IVPB SCH (09:42)
[2022-10-11] MEDS: predniSONE 20 MG TABLET (UD) PO SCH (09:43)
[2022-10-11] MEDS: amLODIPine BESYLATE 5 MG TABLET (FP) PO SCH (09:43)
[2022-10-11] MEDS: POTASSIUM CHLORIDE TABS 20 MEQ TABLET.ER (FP) PO SCH (09:43)
[2022-10-11] MEDS: metoPROLOL SUCCINATE 25 MG TAB.SR.24H (FP) PO SCH (09:43)
[2022-10-11] MEDS: FUROSEMIDE 40 MG/4 ML INJECTABLE VIAL IVPUSH SCH (09:43)
[2022-10-11] MEDS: FOLIC ACID 1 MG TABLET (FP) PO SCH (09:43)
[2022-10-11] MEDS: ENOXAPARIN NA (PORCINE) 40 MG/0.4 ML DISP.SYRIN SQ SCH (09:43)
[2022-10-11] MEDS: CHOLECALCIFEROL (VIT D3) 1,000 UNIT (25 MCG) TABLET PO SCH (09:43)
[2022-10-11] MEDS: FLUTICASONE PROP 0.05% 16 GM NASAL SPRAY NS SCH (09:44)
[2022-10-11] MEDS: ABACAVIR/DOLUTEGRAVIR/LAMIVUDI (TRIUMEQ) TABLET PO SCH (09:44)
[2022-10-11] MEDS: NYSTATIN 100,000 UNIT/GM TOPICAL CREAM 15 GM TUBE TP SCH (09:44)
[2022-10-11 10:02] LABS: BLOOD UREA NITROGEN 21.4 mg/dL (7-18); CALCIUM 9.3 mg/dL (8.5-10.1)
[2022-10-11 10:05] LABS: CREATININE 0.9 mg/dL (0.55-1.3); PHOSPHOROUS 3.3 mg/dL (2.5-4.9)
[2022-10-11] MEDS: ATORVASTATIN CA 10 MG TABLET (FP) PO SCH (21:08)
[2022-10-12] MEDS: NYSTATIN 100,000 UNIT/GM TOPICAL CREAM 15 GM TUBE TP SCH ×3 (06:09→23:05)
[2022-10-12] MEDS: methaDONE 40 MG, methaDONE 30 MG PO SCH (06:16)
[2022-10-12] MEDS: LEVOTHYROXINE NA 125 MCG TABLET (FP) PO SCH (06:16)
[2022-10-12] MEDS: predniSONE 20 MG TABLET (UD) PO SCH (09:45)
[2022-10-12] MEDS: POTASSIUM CHLORIDE TABS 20 MEQ TABLET.ER (FP) PO SCH (09:45)
[2022-10-12] MEDS: FUROSEMIDE 40 MG/4 ML INJECTABLE VIAL IVPUSH SCH (09:45)
[2022-10-12] MEDS: metoPROLOL SUCCINATE 25 MG TAB.SR.24H (FP) PO SCH (09:45)
[2022-10-12] MEDS: FOLIC ACID 1 MG TABLET (FP) PO SCH (09:45)
[2022-10-12] MEDS: CHOLECALCIFEROL (VIT D3) 1,000 UNIT (25 MCG) TABLET PO SCH (09:45)
[2022-10-12] MEDS: CEFTRIAXONE 1 GM in DEXTROSE 5%-WATER - 50 ML IVPB SCH (09:45)
[2022-10-12] MEDS: ENOXAPARIN NA (PORCINE) 40 MG/0.4 ML DISP.SYRIN SQ SCH (09:46)
[2022-10-12] MEDS: FLUTICASONE PROP 0.05% 16 GM NASAL SPRAY NS SCH (09:46)
[2022-10-12] MEDS: amLODIPine BESYLATE 5 MG TABLET (FP) PO SCH (09:46)
[2022-10-12] MEDS: ABACAVIR/DOLUTEGRAVIR/LAMIVUDI (TRIUMEQ) TABLET PO SCH (09:47)
[2022-10-12 10:17] LABS: HEMATOCRIT 32.6 % (32.4-45.2); HEMOGLOBIN 9.8 GM/dL (10.7-15.3); MCHC 30.1 g/dl (32.0-36.0); MEAN CELL VOLUME 86.4 fl (80-96); MEAN PLT VOLUME 9.4 fl (7.5-11.1); PLATELET COUNT 250 10^3/uL (134-434); RBC 3.77 M/mm3 (3.60-5.2); RDW 16.6 % (11.6-15.6); WHITE BLOOD COUNT 9.3 K/mm3 (4.0-10.0)
[2022-10-12 10:50] LABS: CALCIUM 9.4 mg/dL (8.5-10.1)
[2022-10-12 10:51] LABS: BLOOD UREA NITROGEN 19.8 mg/dL (7-18); MAGNESIUM 1.9 mg/dL (1.8-2.4)
[2022-10-12 10:54] LABS: PHOSPHOROUS 3.9 mg/dL (2.5-4.9)
[2022-10-12] MEDS: POTASSIUM CHLORIDE ORAL LIQUID 20 MEQ/15 ML PO ONE ×2 (14:51→14:53)
[2022-10-12] MEDS: ATORVASTATIN CA 10 MG TABLET (FP) PO SCH (23:05)
[2022-10-13] MEDS: LEVOTHYROXINE NA 125 MCG TABLET (FP) PO SCH (06:16)
[2022-10-13] MEDS: methaDONE 40 MG, methaDONE 30 MG PO SCH (06:16)
[2022-10-13 09:18] LABS: HEMATOCRIT 33.6 % (32.4-45.2); MCH 25.2 pg (25.7-33.7); MCHC 29.7 g/dl (32.0-36.0); MEAN CELL VOLUME 84.9 fl (80-96); MEAN PLT VOLUME 9.2 fl (7.5-11.1); PLATELET COUNT 254 10^3/uL (134-434); RBC 3.96 M/mm3 (3.60-5.2); RDW 16.7 % (11.6-15.6); WHITE BLOOD COUNT 9.6 K/mm3 (4.0-10.0)
[2022-10-13] MEDS: CHOLECALCIFEROL (VIT D3) 1,000 UNIT (25 MCG) TABLET PO SCH (09:30)
[2022-10-13] MEDS: predniSONE 20 MG TABLET (UD) PO SCH (09:31)
[2022-10-13] MEDS: FOLIC ACID 1 MG TABLET (FP) PO SCH (09:31)
[2022-10-13] MEDS: metoPROLOL SUCCINATE 25 MG TAB.SR.24H (FP) PO SCH (09:31)
[2022-10-13] MEDS: FUROSEMIDE 40 MG/4 ML INJECTABLE VIAL IVPUSH SCH (09:31)
[2022-10-13] MEDS: POTASSIUM CHLORIDE TABS 20 MEQ TABLET.ER (FP) PO SCH (09:31)
[2022-10-13 09:38] LABS: CALCIUM 9.1 mg/dL (8.5-10.1)
[2022-10-13 09:42] LABS: PHOSPHOROUS 4.2 mg/dL (2.5-4.9)
[2022-10-13 09:49] LABS: BLOOD UREA NITROGEN 19.7 mg/dL (7-18)
[2022-10-13] MEDS: ABACAVIR/DOLUTEGRAVIR/LAMIVUDI (TRIUMEQ) TABLET PO SCH (09:58)
[2022-10-13] MEDS: NYSTATIN 100,000 UNIT/GM TOPICAL CREAM 15 GM TUBE TP SCH (10:06)
[2022-10-13] MEDS: FLUTICASONE PROP 0.05% 16 GM NASAL SPRAY NS SCH (10:06)
[2022-10-13] MEDS: amLODIPine BESYLATE 5 MG TABLET (FP) PO SCH (10:12)
[2022-10-13] MEDS: ATORVASTATIN CA 10 MG TABLET (FP) PO SCH (21:01)
[2022-10-14] MEDS: methaDONE 40 MG, methaDONE 30 MG PO SCH (06:12)
[2022-10-14] MEDS: LEVOTHYROXINE NA 125 MCG TABLET (FP) PO SCH (06:14)
[2022-10-14] MEDS: NYSTATIN 100,000 UNIT/GM TOPICAL CREAM 15 GM TUBE TP SCH ×2 (06:43→09:34)
[2022-10-14] MEDS: ENOXAPARIN NA (PORCINE) 40 MG/0.4 ML DISP.SYRIN SQ SCH (09:30)
[2022-10-14] MEDS: metoPROLOL SUCCINATE 25 MG TAB.SR.24H (FP) PO SCH (09:31)
[2022-10-14] MEDS: POTASSIUM CHLORIDE TABS 20 MEQ TABLET.ER (FP) PO SCH (09:31)
[2022-10-14] MEDS: FOLIC ACID 1 MG TABLET (FP) PO SCH (09:33)
[2022-10-14] MEDS: CHOLECALCIFEROL (VIT D3) 1,000 UNIT (25 MCG) TABLET PO SCH (09:33)
[2022-10-14] MEDS: predniSONE 20 MG TABLET (UD) PO SCH (09:33)
[2022-10-14] MEDS: FUROSEMIDE 40 MG/4 ML INJECTABLE VIAL IVPUSH SCH (09:34)
[2022-10-14] MEDS: ABACAVIR/DOLUTEGRAVIR/LAMIVUDI (TRIUMEQ) TABLET PO SCH (09:34)
[2022-10-14] MEDS: FLUTICASONE PROP 0.05% 16 GM NASAL SPRAY NS SCH (09:34)
[2022-10-14] MEDS: amLODIPine BESYLATE 5 MG TABLET (FP) PO SCH (09:36)
[2022-10-14 09:49] LABS: CHLORIDE 93 mmol/L (98-107); SODIUM 141 mmol/L (136-145)
[2022-10-14 09:54] LABS: CALCIUM 9.2 mg/dL (8.5-10.1)
[2022-10-14 09:55] LABS: BLOOD UREA NITROGEN 18.1 mg/dL (7-18); CO2 42 mmol/L (21-32); GLUCOSE,RANDOM 97 mg/dL (74-106)
[2022-10-14 09:59] LABS: ANION GAP 6 MMOL/L (8-16)
[2022-10-14] MEDS: KCL 10 MEQ IVPB 10 MEQ/100 ML INFUS.BAG IVPB SCH ×3 (11:01→13:50)
[2022-10-14] MEDS ORDERED: POTASSIUM CHLORIDE TABS 20 MEQ TABLET.ER (FP) PO ONE (12:00)
[2022-10-14] MEDS: ATORVASTATIN CA 10 MG TABLET (FP) PO SCH (21:47)
[2022-10-15] MEDS: NYSTATIN 100,000 UNIT/GM TOPICAL CREAM 15 GM TUBE TP SCH ×3 (00:06→21:24)
[2022-10-15] MEDS: LEVOTHYROXINE NA 125 MCG TABLET (FP) PO SCH (06:44)
[2022-10-15] MEDS: methaDONE 40 MG, methaDONE 30 MG PO SCH (06:44)
[2022-10-15 08:49] LABS: HEMATOCRIT 37.3 % (32.4-45.2); HEMOGLOBIN 10.9 GM/dL (10.7-15.3); MCH 25.2 pg (25.7-33.7); MCHC 29.3 g/dl (32.0-36.0); MEAN CELL VOLUME 86.1 fl (80-96); MEAN PLT VOLUME 8.4 fl (7.5-11.1); PLATELET COUNT 210 10^3/uL (134-434); RBC 4.33 M/mm3 (3.60-5.2); RDW 16.4 % (11.6-15.6); WHITE BLOOD COUNT 9.4 K/mm3 (4.0-10.0)
[2022-10-15 09:11] LABS: CALCIUM 9.2 mg/dL (8.5-10.1)
[2022-10-15 09:12] LABS: BLOOD UREA NITROGEN 16.6 mg/dL (7-18); MAGNESIUM 1.9 mg/dL (1.8-2.4)
[2022-10-15 09:15] LABS: PHOSPHOROUS 3.9 mg/dL (2.5-4.9)
[2022-10-15] MEDS: POTASSIUM CHLORIDE TABS 20 MEQ TABLET.ER (FP) PO SCH (10:45)
[2022-10-15] MEDS: FOLIC ACID 1 MG TABLET (FP) PO SCH (10:45)
[2022-10-15] MEDS: CHOLECALCIFEROL (VIT D3) 1,000 UNIT (25 MCG) TABLET PO SCH (10:45)
[2022-10-15] MEDS: FUROSEMIDE 40 MG TABLET (FP) PO SCH (10:45)
[2022-10-15] MEDS: predniSONE 20 MG TABLET (UD) PO SCH (10:45)
[2022-10-15] MEDS: metoPROLOL SUCCINATE 25 MG TAB.SR.24H (FP) PO SCH (10:46)
[2022-10-15] MEDS: amLODIPine BESYLATE 5 MG TABLET (FP) PO SCH (10:46)
[2022-10-15] MEDS: ENOXAPARIN NA (PORCINE) 40 MG/0.4 ML DISP.SYRIN SQ SCH (10:47)
[2022-10-15] MEDS: FLUTICASONE PROP 0.05% 16 GM NASAL SPRAY NS SCH (10:51)
[2022-10-15] MEDS: ABACAVIR/DOLUTEGRAVIR/LAMIVUDI (TRIUMEQ) TABLET PO SCH (10:52)
[2022-10-15] MEDS: ATORVASTATIN CA 10 MG TABLET (FP) PO SCH (21:24)
[2022-10-16] MEDS: methaDONE 40 MG, methaDONE 30 MG PO SCH (06:08)
[2022-10-16] MEDS: LEVOTHYROXINE NA 125 MCG TABLET (FP) PO SCH (06:09)
[2022-10-16 09:47] LABS: HEMATOCRIT 33.6 % (32.4-45.2); HEMOGLOBIN 9.9 GM/dL (10.7-15.3); MCH 25.4 pg (25.7-33.7); MCHC 29.5 g/dl (32.0-36.0); MEAN CELL VOLUME 85.9 fl (80-96); MEAN PLT VOLUME 8.8 fl (7.5-11.1); PLATELET COUNT 195 10^3/uL (134-434); RBC 3.91 M/mm3 (3.60-5.2); WHITE BLOOD COUNT 8.3 K/mm3 (4.0-10.0)
[2022-10-16 09:54] LABS: BLOOD UREA NITROGEN 18.9 mg/dL (7-18); MAGNESIUM 1.9 mg/dL (1.8-2.4)
[2022-10-16 09:57] LABS: PHOSPHOROUS 3.1 mg/dL (2.5-4.9)
[2022-10-16] MEDS: predniSONE 20 MG TABLET (UD) PO SCH (11:44)
[2022-10-16] MEDS: metoPROLOL SUCCINATE 25 MG TAB.SR.24H (FP) PO SCH (11:44)
[2022-10-16] MEDS: POTASSIUM CHLORIDE TABS 20 MEQ TABLET.ER (FP) PO SCH (11:45)
[2022-10-16] MEDS: CHOLECALCIFEROL (VIT D3) 1,000 UNIT (25 MCG) TABLET PO SCH (11:45)
[2022-10-16] MEDS: amLODIPine BESYLATE 5 MG TABLET (FP) PO SCH (11:45)
[2022-10-16] MEDS: FUROSEMIDE 40 MG TABLET (FP) PO SCH (11:45)
[2022-10-16] MEDS: FOLIC ACID 1 MG TABLET (FP) PO SCH (11:45)
[2022-10-16] MEDS: FLUTICASONE PROP 0.05% 16 GM NASAL SPRAY NS SCH (11:46)
[2022-10-16] MEDS: ABACAVIR/DOLUTEGRAVIR/LAMIVUDI (TRIUMEQ) TABLET PO SCH (11:46)
[2022-10-16] MEDS: ENOXAPARIN NA (PORCINE) 40 MG/0.4 ML DISP.SYRIN SQ SCH (11:46)
[2022-10-16] MEDS: NYSTATIN 100,000 UNIT/GM TOPICAL CREAM 15 GM TUBE TP SCH ×2 (11:51→21:35)
[2022-10-16] MEDS: ATORVASTATIN CA 10 MG TABLET (FP) PO SCH (21:34)
[2022-10-17 06:10] LABS: ARTERIAL BLD GAS O2 SATURATION 99.5 % (95-98); ARTERIAL BLOOD GAS BASE EXCESS 14.6 mmol/L (-2-2); ARTERIAL BLOOD GAS PO2 232.8 mmHg (80-100); ARTERIAL BLOOD GAS pH 7.417 (7.350-7.450)
[2022-10-17] MEDS: methaDONE 40 MG, methaDONE 30 MG PO SCH (06:12)
[2022-10-17] MEDS: LEVOTHYROXINE NA 125 MCG TABLET (FP) PO SCH (06:13)
[2022-10-17 06:17] LABS: ALLENS TEST POSITIVE; VENT MODE A/C; VENT RATE 18
[2022-10-17] MEDS: POTASSIUM CHLORIDE TABS 20 MEQ TABLET.ER (FP) PO SCH (09:53)
[2022-10-17] MEDS: ENOXAPARIN NA (PORCINE) 40 MG/0.4 ML DISP.SYRIN SQ SCH (09:53)
[2022-10-17] MEDS: NYSTATIN 100,000 UNIT/GM TOPICAL CREAM 15 GM TUBE TP SCH (09:53)
[2022-10-17] MEDS: FOLIC ACID 1 MG TABLET (FP) PO SCH (09:53)
[2022-10-17] MEDS: FLUTICASONE PROP 0.05% 16 GM NASAL SPRAY NS SCH (09:53)
[2022-10-17] MEDS: predniSONE 20 MG TABLET (UD) PO SCH (09:53)
[2022-10-17] MEDS: CHOLECALCIFEROL (VIT D3) 1,000 UNIT (25 MCG) TABLET PO SCH (09:53)
[2022-10-17] MEDS: amLODIPine BESYLATE 5 MG TABLET (FP) PO SCH (09:54)
[2022-10-17] MEDS: metoPROLOL SUCCINATE 25 MG TAB.SR.24H (FP) PO SCH (09:54)
[2022-10-17 10:01] LABS: HEMATOCRIT 34.9 % (32.4-45.2); HEMOGLOBIN 10.2 GM/dL (10.7-15.3); MCH 25.3 pg (25.7-33.7); MCHC 29.2 g/dl (32.0-36.0); MEAN CELL VOLUME 86.7 fl (80-96); MEAN PLT VOLUME 9.2 fl (7.5-11.1); PLATELET COUNT 231 10^3/uL (134-434); RBC 4.02 M/mm3 (3.60-5.2); RDW 16.8 % (11.6-15.6); WHITE BLOOD COUNT 8.7 K/mm3 (4.0-10.0)
[2022-10-17 10:42] LABS: BLOOD UREA NITROGEN 19.1 mg/dL (7-18); CALCIUM 9.1 mg/dL (8.5-10.1)
[2022-10-17 10:43] LABS: MAGNESIUM 1.9 mg/dL (1.8-2.4)
[2022-10-17 10:45] LABS: CREATININE 1.1 mg/dL (0.55-1.3); PHOSPHOROUS 4.9 mg/dL (2.5-4.9)
[2022-10-17] MEDS: ABACAVIR/DOLUTEGRAVIR/LAMIVUDI (TRIUMEQ) TABLET PO SCH (10:47)
[2022-10-17] MEDS: ATORVASTATIN CA 10 MG TABLET (FP) PO SCH (21:58)
[2022-10-18] MEDS: NYSTATIN 100,000 UNIT/GM TOPICAL CREAM 15 GM TUBE TP SCH ×3 (02:44→21:44)
[2022-10-18] MEDS: LEVOTHYROXINE NA 125 MCG TABLET (FP) PO SCH (06:42)
[2022-10-18] MEDS: methaDONE 40 MG, methaDONE 30 MG PO SCH (06:42)
[2022-10-18 09:27] LABS: BLOOD UREA NITROGEN 15.4 mg/dL (7-18); CALCIUM 8.9 mg/dL (8.5-10.1)
[2022-10-18] MEDS: POTASSIUM CHLORIDE TABS 20 MEQ TABLET.ER (FP) PO SCH (11:19)
[2022-10-18] MEDS: FOLIC ACID 1 MG TABLET (FP) PO SCH (11:19)
[2022-10-18] MEDS: amLODIPine BESYLATE 5 MG TABLET (FP) PO SCH (11:19)
[2022-10-18] MEDS: CHOLECALCIFEROL (VIT D3) 1,000 UNIT (25 MCG) TABLET PO SCH (11:19)
[2022-10-18] MEDS: predniSONE 20 MG TABLET (UD) PO SCH (11:19)
[2022-10-18] MEDS: metoPROLOL SUCCINATE 25 MG TAB.SR.24H (FP) PO SCH (11:19)
[2022-10-18] MEDS: ENOXAPARIN NA (PORCINE) 40 MG/0.4 ML DISP.SYRIN SQ SCH (11:20)
[2022-10-18] MEDS: ABACAVIR/DOLUTEGRAVIR/LAMIVUDI (TRIUMEQ) TABLET PO SCH (11:21)
[2022-10-18] MEDS: FLUTICASONE PROP 0.05% 16 GM NASAL SPRAY NS SCH (11:44)
[2022-10-18] MEDS: ATORVASTATIN CA 10 MG TABLET (FP) PO SCH (21:44)
[2022-10-19] MEDS: methaDONE 40 MG, methaDONE 30 MG PO SCH (06:12)
[2022-10-19] MEDS: LEVOTHYROXINE NA 125 MCG TABLET (FP) PO SCH (06:16)
[2022-10-19] MEDS: LACTATED RINGERS SOLUTION 1,000 ML/1,000 ML INFUS.BAG IV SCH ×2 (10:41→23:33)
[2022-10-19] MEDS: predniSONE 20 MG TABLET (UD) PO SCH (10:42)
[2022-10-19] MEDS: FLUTICASONE PROP 0.05% 16 GM NASAL SPRAY NS SCH (10:42)
[2022-10-19] MEDS: CHOLECALCIFEROL (VIT D3) 1,000 UNIT (25 MCG) TABLET PO SCH (10:42)
[2022-10-19] MEDS: metoPROLOL SUCCINATE 25 MG TAB.SR.24H (FP) PO SCH (10:42)
[2022-10-19] MEDS: amLODIPine BESYLATE 5 MG TABLET (FP) PO SCH (10:42)
[2022-10-19] MEDS: ENOXAPARIN NA (PORCINE) 40 MG/0.4 ML DISP.SYRIN SQ SCH (10:42)
[2022-10-19] MEDS: NYSTATIN 100,000 UNIT/GM TOPICAL CREAM 15 GM TUBE TP SCH ×2 (10:42→22:55)
[2022-10-19] MEDS: FOLIC ACID 1 MG TABLET (FP) PO SCH (10:42)
[2022-10-19] MEDS: ABACAVIR/DOLUTEGRAVIR/LAMIVUDI (TRIUMEQ) TABLET PO SCH (10:42)
[2022-10-19] MEDS: POTASSIUM CHLORIDE TABS 20 MEQ TABLET.ER (FP) PO SCH (10:42)
[2022-10-19] MEDS: ATORVASTATIN CA 10 MG TABLET (FP) PO SCH (22:55)
[2022-10-20] MEDS: methaDONE 40 MG, methaDONE 30 MG PO SCH (06:01)
[2022-10-20] MEDS: LEVOTHYROXINE NA 125 MCG TABLET (FP) PO SCH (06:02)
[2022-10-20] MEDS: POTASSIUM CHLORIDE TABS 20 MEQ TABLET.ER (FP) PO SCH (11:53)
[2022-10-20] MEDS: CHOLECALCIFEROL (VIT D3) 1,000 UNIT (25 MCG) TABLET PO SCH (11:53)
[2022-10-20] MEDS: FOLIC ACID 1 MG TABLET (FP) PO SCH (11:53)
[2022-10-20] MEDS: predniSONE 20 MG TABLET (UD) PO SCH (11:53)
[2022-10-20] MEDS: ENOXAPARIN NA (PORCINE) 40 MG/0.4 ML DISP.SYRIN SQ SCH (11:54)
[2022-10-20] MEDS: LACTATED RINGERS SOLUTION 1,000 ML/1,000 ML INFUS.BAG IV SCH (11:54)
[2022-10-20] MEDS: FLUTICASONE PROP 0.05% 16 GM NASAL SPRAY NS SCH (11:54)
[2022-10-20] MEDS: ABACAVIR/DOLUTEGRAVIR/LAMIVUDI (TRIUMEQ) TABLET PO SCH (11:54)
[2022-10-20] MEDS: NYSTATIN 100,000 UNIT/GM TOPICAL CREAM 15 GM TUBE TP SCH ×2 (11:54→21:03)
[2022-10-20] MEDS: metoPROLOL SUCCINATE 25 MG TAB.SR.24H (FP) PO SCH (16:16)
[2022-10-20] MEDS: amLODIPine BESYLATE 5 MG TABLET (FP) PO SCH (16:16)
[2022-10-20] MEDS: FUROSEMIDE 40 MG/4 ML INJECTABLE VIAL IVPUSH SCH (16:30)
[2022-10-20] MEDS: ATORVASTATIN CA 10 MG TABLET (FP) PO SCH (21:02)
[2022-10-21] MEDS: methaDONE 40 MG, methaDONE 30 MG PO SCH (05:47)
[2022-10-21] MEDS: LEVOTHYROXINE NA 125 MCG TABLET (FP) PO SCH (06:26)
[2022-10-21 08:21] LABS: BASO % 0.3 % (0-2.0); EOS % 0.6 % (0-4.5); HEMOGLOBIN 9.4 GM/dL (10.7-15.3); LYMPH % 23.6 % (8-40); MCHC 30.1 g/dl (32.0-36.0); MEAN CELL VOLUME 86.2 fl (80-96); MEAN PLT VOLUME 8.3 fl (7.5-11.1); MONO % 9.3 % (3.8-10.2); NEUT % 66.2 % (42.8-82.8); PLATELET COUNT 176 10^3/uL (134-434); RDW 16.8 % (11.6-15.6); WHITE BLOOD COUNT 6.8 K/mm3 (4.0-10.0)
[2022-10-21 08:54] LABS: CALCIUM 8.8 mg/dL (8.5-10.1)
[2022-10-21 08:55] LABS: ALBUMIN 2.6 g/dl (3.4-5.0); BLOOD UREA NITROGEN 10.5 mg/dL (7-18)
[2022-10-21 08:58] LABS: CREATININE 0.8 mg/dL (0.55-1.3)
[2022-10-21 09:00] LABS: BILIRUBIN,TOTAL 0.3 mg/dL (0.2-1); TOT PROT 5.6 g/dl (6.4-8.2)
[2022-10-21] MEDS: ENOXAPARIN NA (PORCINE) 40 MG/0.4 ML DISP.SYRIN SQ SCH (09:43)
[2022-10-21] MEDS: FUROSEMIDE 40 MG/4 ML INJECTABLE VIAL IVPUSH SCH (09:43)
[2022-10-21] MEDS: predniSONE 20 MG TABLET (UD) PO SCH (09:44)
[2022-10-21] MEDS: POTASSIUM CHLORIDE TABS 20 MEQ TABLET.ER (FP) PO SCH (09:44)
[2022-10-21] MEDS: FLUTICASONE PROP 0.05% 16 GM NASAL SPRAY NS SCH (09:44)
[2022-10-21] MEDS: CHOLECALCIFEROL (VIT D3) 1,000 UNIT (25 MCG) TABLET PO SCH (09:44)
[2022-10-21] MEDS: NYSTATIN 100,000 UNIT/GM TOPICAL CREAM 15 GM TUBE TP SCH ×2 (09:44→22:48)
[2022-10-21] MEDS: FOLIC ACID 1 MG TABLET (FP) PO SCH (09:44)
[2022-10-21] MEDS: amLODIPine BESYLATE 5 MG TABLET (FP) PO SCH (09:44)
[2022-10-21] MEDS: ABACAVIR/DOLUTEGRAVIR/LAMIVUDI (TRIUMEQ) TABLET PO SCH (09:44)
[2022-10-21] MEDS: metoPROLOL SUCCINATE 25 MG TAB.SR.24H (FP) PO SCH (09:44)
[2022-10-21] MEDS: ATORVASTATIN CA 10 MG TABLET (FP) PO SCH (22:48)
[2022-10-22] MEDS: methaDONE 40 MG, methaDONE 30 MG PO SCH (06:41)
[2022-10-22] MEDS: LEVOTHYROXINE NA 125 MCG TABLET (FP) PO SCH (06:42)
[2022-10-22] MEDS: ENOXAPARIN NA (PORCINE) 40 MG/0.4 ML DISP.SYRIN SQ SCH (09:53)
[2022-10-22] MEDS: POTASSIUM CHLORIDE TABS 20 MEQ TABLET.ER (FP) PO SCH (09:53)
[2022-10-22] MEDS: metoPROLOL SUCCINATE 25 MG TAB.SR.24H (FP) PO SCH (09:53)
[2022-10-22] MEDS: predniSONE 20 MG TABLET (UD) PO SCH (09:53)
[2022-10-22] MEDS: FLUTICASONE PROP 0.05% 16 GM NASAL SPRAY NS SCH (09:53)
[2022-10-22] MEDS: NYSTATIN 100,000 UNIT/GM TOPICAL CREAM 15 GM TUBE TP SCH ×2 (09:53→23:10)
[2022-10-22] MEDS: FUROSEMIDE 40 MG/4 ML INJECTABLE VIAL IVPUSH SCH (09:54)
[2022-10-22] MEDS: ABACAVIR/DOLUTEGRAVIR/LAMIVUDI (TRIUMEQ) TABLET PO SCH (09:54)
[2022-10-22] MEDS: amLODIPine BESYLATE 5 MG TABLET (FP) PO SCH (09:54)
[2022-10-22] MEDS: CHOLECALCIFEROL (VIT D3) 1,000 UNIT (25 MCG) TABLET PO SCH (09:54)
[2022-10-22] MEDS: FOLIC ACID 1 MG TABLET (FP) PO SCH (09:54)
[2022-10-22] MEDS: ATORVASTATIN CA 10 MG TABLET (FP) PO SCH (23:05)
[2022-10-23] MEDS: methaDONE 40 MG, methaDONE 30 MG PO SCH (07:24)
[2022-10-23] MEDS: LEVOTHYROXINE NA 125 MCG TABLET (FP) PO SCH (07:25)
[2022-10-23 08:51] LABS: BASO % 0.4 % (0-2.0); EOS % 0.4 % (0-4.5); HEMATOCRIT 32.2 % (32.4-45.2); HEMOGLOBIN 9.5 GM/dL (10.7-15.3); MCH 25.4 pg (25.7-33.7); MCHC 29.4 g/dl (32.0-36.0); MEAN CELL VOLUME 86.4 fl (80-96); MEAN PLT VOLUME 8.4 fl (7.5-11.1); MONO % 7.7 % (3.8-10.2); NEUT % 66.5 % (42.8-82.8); PLATELET COUNT 210 10^3/uL (134-434); RBC 3.72 M/mm3 (3.60-5.2); WHITE BLOOD COUNT 7.7 K/mm3 (4.0-10.0)
[2022-10-23 09:05] LABS: CALCIUM 8.8 mg/dL (8.5-10.1)
[2022-10-23 09:06] LABS: ALBUMIN 2.6 g/dl (3.4-5.0); BLOOD UREA NITROGEN 15.5 mg/dL (7-18)
[2022-10-23 09:10] LABS: BILIRUBIN,TOTAL 0.2 mg/dL (0.2-1); TOT PROT 5.7 g/dl (6.4-8.2)
[2022-10-23] MEDS: NYSTATIN 100,000 UNIT/GM TOPICAL CREAM 15 GM TUBE TP SCH ×2 (10:34→22:20)
[2022-10-23] MEDS: amLODIPine BESYLATE 5 MG TABLET (FP) PO SCH (10:34)
[2022-10-23] MEDS: FUROSEMIDE 40 MG TABLET (FP) PO SCH (10:34)
[2022-10-23] MEDS: FOLIC ACID 1 MG TABLET (FP) PO SCH (10:34)
[2022-10-23] MEDS: metoPROLOL SUCCINATE 25 MG TAB.SR.24H (FP) PO SCH (10:34)
[2022-10-23] MEDS: predniSONE 20 MG TABLET (UD) PO SCH (10:34)
[2022-10-23] MEDS: POTASSIUM CHLORIDE TABS 20 MEQ TABLET.ER (FP) PO SCH ×2 (10:34→11:00)
[2022-10-23] MEDS: ENOXAPARIN NA (PORCINE) 40 MG/0.4 ML DISP.SYRIN SQ SCH (10:34)
[2022-10-23] MEDS: FLUTICASONE PROP 0.05% 16 GM NASAL SPRAY NS SCH (10:34)
[2022-10-23] MEDS: ABACAVIR/DOLUTEGRAVIR/LAMIVUDI (TRIUMEQ) TABLET PO SCH (10:35)
[2022-10-23] MEDS: CHOLECALCIFEROL (VIT D3) 1,000 UNIT (25 MCG) TABLET PO SCH (10:35)
[2022-10-23] MEDS: ATORVASTATIN CA 10 MG TABLET (FP) PO SCH (22:20)
[2022-10-24] MEDS: methaDONE 40 MG, methaDONE 30 MG PO SCH (06:23)
[2022-10-24] MEDS: LEVOTHYROXINE NA 125 MCG TABLET (FP) PO SCH (06:23)
[2022-10-24] MEDS: POTASSIUM CHLORIDE TABS 20 MEQ TABLET.ER (FP) PO SCH (10:10)
[2022-10-24] MEDS: metoPROLOL SUCCINATE 25 MG TAB.SR.24H (FP) PO SCH (10:10)
[2022-10-24] MEDS: FUROSEMIDE 40 MG TABLET (FP) PO SCH (10:10)
[2022-10-24] MEDS: CHOLECALCIFEROL (VIT D3) 1,000 UNIT (25 MCG) TABLET PO SCH (10:10)
[2022-10-24] MEDS: amLODIPine BESYLATE 5 MG TABLET (FP) PO SCH (10:11)
[2022-10-24] MEDS: FOLIC ACID 1 MG TABLET (FP) PO SCH (10:11)
[2022-10-24] MEDS: ENOXAPARIN NA (PORCINE) 40 MG/0.4 ML DISP.SYRIN SQ SCH (10:11)
[2022-10-24] MEDS: predniSONE 20 MG TABLET (UD) PO SCH (10:11)
[2022-10-24] MEDS: ABACAVIR/DOLUTEGRAVIR/LAMIVUDI (TRIUMEQ) TABLET PO SCH (10:11)
[2022-10-24] MEDS: NYSTATIN 100,000 UNIT/GM TOPICAL CREAM 15 GM TUBE TP SCH ×2 (10:21→21:44)
[2022-10-24] MEDS: FLUTICASONE PROP 0.05% 16 GM NASAL SPRAY NS SCH (10:22)
[2022-10-24] MEDS: ATORVASTATIN CA 10 MG TABLET (FP) PO SCH (21:38)
[2022-10-25] MEDS: LEVOTHYROXINE NA 125 MCG TABLET (FP) PO SCH (06:03)
[2022-10-25] MEDS: methaDONE 40 MG, methaDONE 30 MG PO SCH (06:03)
[2022-10-25] MEDS: NYSTATIN 100,000 UNIT/GM TOPICAL CREAM 15 GM TUBE TP SCH ×2 (10:00→22:14)
[2022-10-25] MEDS: ABACAVIR/DOLUTEGRAVIR/LAMIVUDI (TRIUMEQ) TABLET PO SCH (10:33)
[2022-10-25] MEDS: ENOXAPARIN NA (PORCINE) 40 MG/0.4 ML DISP.SYRIN SQ SCH (10:43)
[2022-10-25] MEDS: CHOLECALCIFEROL (VIT D3) 1,000 UNIT (25 MCG) TABLET PO SCH (10:43)
[2022-10-25] MEDS: FOLIC ACID 1 MG TABLET (FP) PO SCH (10:43)
[2022-10-25] MEDS: predniSONE 10 MG TABLET (UD) PO SCH (10:43)
[2022-10-25] MEDS: FLUTICASONE PROP 0.05% 16 GM NASAL SPRAY NS SCH (20:05)
[2022-10-25] MEDS: ATORVASTATIN CA 10 MG TABLET (FP) PO SCH (20:59)
[2022-10-26] MEDS: methaDONE 40 MG, methaDONE 30 MG PO SCH (06:12)
[2022-10-26] MEDS: LEVOTHYROXINE NA 125 MCG TABLET (FP) PO SCH (06:12)
[2022-10-26 06:22] LABS: ARTERIAL BLD GAS O2 SATURATION 95.9 % (95-98); ARTERIAL BLOOD GAS BASE EXCESS 12.6 mmol/L (-2-2); ARTERIAL BLOOD GAS PO2 92.3 mmHg (80-100); ARTERIAL BLOOD GAS pH 7.315 (7.350-7.450)
[2022-10-26 06:23] LABS: ALLENS TEST POSITIVE
[2022-10-26] MEDS: FOLIC ACID 1 MG TABLET (FP) PO SCH (11:28)
[2022-10-26] MEDS: predniSONE 10 MG TABLET (UD) PO SCH (11:28)
[2022-10-26] MEDS: ENOXAPARIN NA (PORCINE) 40 MG/0.4 ML DISP.SYRIN SQ SCH (11:28)
[2022-10-26] MEDS: CHOLECALCIFEROL (VIT D3) 1,000 UNIT (25 MCG) TABLET PO SCH (11:28)
[2022-10-26] MEDS: ABACAVIR/DOLUTEGRAVIR/LAMIVUDI (TRIUMEQ) TABLET PO SCH (11:29)
[2022-10-26] MEDS: NYSTATIN 100,000 UNIT/GM TOPICAL CREAM 15 GM TUBE TP SCH ×2 (11:44→21:23)
[2022-10-26] MEDS: FLUTICASONE PROP 0.05% 16 GM NASAL SPRAY NS SCH (11:44)
[2022-10-26] MEDS: ATORVASTATIN CA 10 MG TABLET (FP) PO SCH (21:06)
[2022-10-27] MEDS: LEVOTHYROXINE NA 125 MCG TABLET (FP) PO SCH (06:13)
[2022-10-27] MEDS: methaDONE 40 MG, methaDONE 30 MG PO SCH (06:13)
[2022-10-27] MEDS: FOLIC ACID 1 MG TABLET (FP) PO SCH (10:22)
[2022-10-27] MEDS: predniSONE 10 MG TABLET (UD) PO SCH (10:22)
[2022-10-27] MEDS: ABACAVIR/DOLUTEGRAVIR/LAMIVUDI (TRIUMEQ) TABLET PO SCH (10:23)
[2022-10-27] MEDS: CHOLECALCIFEROL (VIT D3) 1,000 UNIT (25 MCG) TABLET PO SCH (10:23)
[2022-10-27] MEDS: FLUTICASONE PROP 0.05% 16 GM NASAL SPRAY NS SCH (10:23)
[2022-10-27] MEDS: NYSTATIN 100,000 UNIT/GM TOPICAL CREAM 15 GM TUBE TP SCH ×2 (10:23→21:20)
[2022-10-27] MEDS: ATORVASTATIN CA 10 MG TABLET (FP) PO SCH (21:20)
[2022-10-27] MEDS ORDERED: ACETAMINOPHEN 1000 MG/100 ML BAG IVPB ONE (23:48)
[2022-10-28] MEDS: LEVOTHYROXINE NA 125 MCG TABLET (FP) PO SCH (06:12)
[2022-10-28] MEDS: methaDONE 40 MG, methaDONE 30 MG PO SCH (06:12)
[2022-10-28] MEDS: CHOLECALCIFEROL (VIT D3) 1,000 UNIT (25 MCG) TABLET PO SCH (10:53)
[2022-10-28] MEDS: FOLIC ACID 1 MG TABLET (FP) PO SCH (10:53)
[2022-10-28] MEDS: predniSONE 10 MG TABLET (UD) PO SCH (10:53)
[2022-10-28] MEDS: NYSTATIN 100,000 UNIT/GM TOPICAL CREAM 15 GM TUBE TP SCH ×2 (10:54→21:38)
[2022-10-28] MEDS: ABACAVIR/DOLUTEGRAVIR/LAMIVUDI (TRIUMEQ) TABLET PO SCH (10:54)
[2022-10-28] MEDS: FLUTICASONE PROP 0.05% 16 GM NASAL SPRAY NS SCH (10:54)
[2022-10-28] MEDS: ATORVASTATIN CA 10 MG TABLET (FP) PO SCH (21:38)
[2022-10-29] MEDS: methaDONE 40 MG, methaDONE 30 MG PO SCH (05:56)
[2022-10-29] MEDS: LEVOTHYROXINE NA 125 MCG TABLET (FP) PO SCH (06:01)
[2022-10-29 10:14] LABS: BASO % 0.5 % (0-2.0); HEMATOCRIT 31.4 % (32.4-45.2); HEMOGLOBIN 9.5 GM/dL (10.7-15.3); LYMPH % 22.6 % (8-40); MCH 26.8 pg (25.7-33.7); MCHC 30.3 g/dl (32.0-36.0); MEAN CELL VOLUME 88.4 fl (80-96); MEAN PLT VOLUME 8.3 fl (7.5-11.1); NEUT % 67.9 % (42.8-82.8); PLATELET COUNT 146 10^3/uL (134-434); RBC 3.56 M/mm3 (3.60-5.2); WHITE BLOOD COUNT 7.7 K/mm3 (4.0-10.0)
[2022-10-29 10:41] LABS: BLOOD UREA NITROGEN 13.5 mg/dL (7-18); CALCIUM 8.8 mg/dL (8.5-10.1)
[2022-10-29] MEDS: FOLIC ACID 1 MG TABLET (FP) PO SCH (10:57)
[2022-10-29] MEDS: CHOLECALCIFEROL (VIT D3) 1,000 UNIT (25 MCG) TABLET PO SCH (10:57)
[2022-10-29] MEDS: predniSONE 10 MG TABLET (UD) PO SCH (10:57)
[2022-10-29] MEDS: FLUTICASONE PROP 0.05% 16 GM NASAL SPRAY NS SCH (11:00)
[2022-10-29] MEDS: ABACAVIR/DOLUTEGRAVIR/LAMIVUDI (TRIUMEQ) TABLET PO SCH (11:01)
[2022-10-29] MEDS: NYSTATIN 100,000 UNIT/GM TOPICAL CREAM 15 GM TUBE TP SCH ×2 (11:01→21:57)
[2022-10-29] MEDS: ATORVASTATIN CA 10 MG TABLET (FP) PO SCH (21:57)
[2022-10-30] MEDS: methaDONE 40 MG, methaDONE 30 MG PO SCH (05:56)
[2022-10-30] MEDS: LEVOTHYROXINE NA 125 MCG TABLET (FP) PO SCH (06:01)
[2022-10-30] MEDS: predniSONE 10 MG TABLET (UD) PO SCH (12:18)
[2022-10-30] MEDS: FOLIC ACID 1 MG TABLET (FP) PO SCH (12:18)
[2022-10-30] MEDS: CHOLECALCIFEROL (VIT D3) 1,000 UNIT (25 MCG) TABLET PO SCH (12:19)
[2022-10-30] MEDS: ABACAVIR/DOLUTEGRAVIR/LAMIVUDI (TRIUMEQ) TABLET PO SCH (12:19)
[2022-10-30] MEDS: NYSTATIN 100,000 UNIT/GM TOPICAL CREAM 15 GM TUBE TP SCH ×2 (12:20→21:33)
[2022-10-30] MEDS: FLUTICASONE PROP 0.05% 16 GM NASAL SPRAY NS SCH (12:20)
[2022-10-30] MEDS: ENOXAPARIN NA (PORCINE) 40 MG/0.4 ML DISP.SYRIN SQ SCH (12:21)
[2022-10-30] MEDS: ATORVASTATIN CA 10 MG TABLET (FP) PO SCH (21:32)
[2022-10-31] MEDS: LEVOTHYROXINE NA 125 MCG TABLET (FP) PO SCH (06:04)
[2022-10-31] MEDS: methaDONE 40 MG, methaDONE 30 MG PO SCH (06:04)
[2022-10-31] MEDS: FOLIC ACID 1 MG TABLET (FP) PO SCH (10:01)
[2022-10-31] MEDS: NYSTATIN 100,000 UNIT/GM TOPICAL CREAM 15 GM TUBE TP SCH ×2 (10:01→21:44)
[2022-10-31] MEDS: CHOLECALCIFEROL (VIT D3) 1,000 UNIT (25 MCG) TABLET PO SCH (10:01)
[2022-10-31] MEDS: ABACAVIR/DOLUTEGRAVIR/LAMIVUDI (TRIUMEQ) TABLET PO SCH (10:01)
[2022-10-31] MEDS: FLUTICASONE PROP 0.05% 16 GM NASAL SPRAY NS SCH (10:01)
[2022-10-31] MEDS: ENOXAPARIN NA (PORCINE) 40 MG/0.4 ML DISP.SYRIN SQ SCH (10:01)
[2022-10-31] MEDS: predniSONE 10 MG TABLET (UD) PO SCH (10:01)
[2022-10-31] MEDS: ATORVASTATIN CA 10 MG TABLET (FP) PO SCH (21:44)
[2022-11-01] MEDS: methaDONE 40 MG, methaDONE 30 MG PO SCH (06:12)
[2022-11-01] MEDS: LEVOTHYROXINE NA 125 MCG TABLET (FP) PO SCH (06:12)
[2022-11-01] MEDS: CHOLECALCIFEROL (VIT D3) 1,000 UNIT (25 MCG) TABLET PO SCH (10:15)
[2022-11-01] MEDS: predniSONE 10 MG TABLET (UD) PO SCH (10:15)
[2022-11-01] MEDS: FOLIC ACID 1 MG TABLET (FP) PO SCH (10:15)
[2022-11-01] MEDS: ENOXAPARIN NA (PORCINE) 40 MG/0.4 ML DISP.SYRIN SQ SCH (10:15)
[2022-11-01] MEDS: FLUTICASONE PROP 0.05% 16 GM NASAL SPRAY NS SCH (10:16)
[2022-11-01] MEDS: ABACAVIR/DOLUTEGRAVIR/LAMIVUDI (TRIUMEQ) TABLET PO SCH (10:16)
[2022-11-01] MEDS: NYSTATIN 100,000 UNIT/GM TOPICAL CREAM 15 GM TUBE TP SCH (10:17)
[2022-11-01] MEDS: ATORVASTATIN CA 10 MG TABLET (FP) PO SCH (21:30)
[2022-11-02] MEDS: NYSTATIN 100,000 UNIT/GM TOPICAL CREAM 15 GM TUBE TP SCH ×3 (04:14→23:14)
[2022-11-02] MEDS: LEVOTHYROXINE NA 125 MCG TABLET (FP) PO SCH (06:42)
[2022-11-02] MEDS: methaDONE 40 MG, methaDONE 30 MG PO SCH (06:42)
[2022-11-02] MEDS: ABACAVIR/DOLUTEGRAVIR/LAMIVUDI (TRIUMEQ) TABLET PO SCH (10:05)
[2022-11-02] MEDS: CHOLECALCIFEROL (VIT D3) 1,000 UNIT (25 MCG) TABLET PO SCH (10:05)
[2022-11-02] MEDS: ENOXAPARIN NA (PORCINE) 40 MG/0.4 ML DISP.SYRIN SQ SCH (10:05)
[2022-11-02] MEDS: FOLIC ACID 1 MG TABLET (FP) PO SCH (10:05)
[2022-11-02] MEDS: predniSONE 10 MG TABLET (UD) PO SCH (10:05)
[2022-11-02] MEDS: FLUTICASONE PROP 0.05% 16 GM NASAL SPRAY NS SCH (10:06)
[2022-11-02] MEDS: FUROSEMIDE 40 MG TABLET (FP) PO SCH (15:29)
[2022-11-02] MEDS: ATORVASTATIN CA 10 MG TABLET (FP) PO SCH (21:03)
[2022-11-03] MEDS ORDERED: methaDONE 40 MG, methaDONE 30 MG PO ONE (06:00)
[2022-11-03] MEDS ORDERED: methaDONE HCL 10 MG TABLET PO ONE (06:00)
[2022-11-03] MEDS: LEVOTHYROXINE NA 125 MCG TABLET (FP) PO SCH (06:37)
[2022-11-03] MEDS: CHOLECALCIFEROL (VIT D3) 1,000 UNIT (25 MCG) TABLET PO SCH (10:30)
[2022-11-03] MEDS: NYSTATIN 100,000 UNIT/GM TOPICAL CREAM 15 GM TUBE TP SCH ×2 (10:31→22:47)
[2022-11-03] MEDS: ABACAVIR/DOLUTEGRAVIR/LAMIVUDI (TRIUMEQ) TABLET PO SCH (10:31)
[2022-11-03] MEDS: predniSONE 10 MG TABLET (UD) PO SCH (10:31)
[2022-11-03] MEDS: FOLIC ACID 1 MG TABLET (FP) PO SCH (10:31)
[2022-11-03] MEDS: FLUTICASONE PROP 0.05% 16 GM NASAL SPRAY NS SCH (10:31)
[2022-11-03] MEDS: ENOXAPARIN NA (PORCINE) 40 MG/0.4 ML DISP.SYRIN SQ SCH (10:31)
[2022-11-03] MEDS: FUROSEMIDE 40 MG TABLET (FP) PO SCH (10:33)
[2022-11-03 11:53] LABS: BASO % 0.8 % (0-2.0); EOS % 0.9 % (0-4.5); HEMATOCRIT 35.6 % (32.4-45.2); HEMOGLOBIN 10.7 GM/dL (10.7-15.3); LYMPH % 25.5 % (8-40); MCH 26.4 pg (25.7-33.7); MEAN PLT VOLUME 8.2 fl (7.5-11.1); MONO % 8.5 % (3.8-10.2); NEUT % 64.3 % (42.8-82.8); PLATELET COUNT 196 10^3/uL (134-434); RBC 4.04 M/mm3 (3.60-5.2); RDW 18.7 % (11.6-15.6); WHITE BLOOD COUNT 8.6 K/mm3 (4.0-10.0)
[2022-11-03 12:10] LABS: CALCIUM 9.2 mg/dL (8.5-10.1)
[2022-11-03 12:11] LABS: BLOOD UREA NITROGEN 16.2 mg/dL (7-18); MAGNESIUM 2.2 mg/dL (1.8-2.4)
[2022-11-03] MEDS: ATORVASTATIN CA 10 MG TABLET (FP) PO SCH (22:45)
[2022-11-04] MEDS: LEVOTHYROXINE NA 125 MCG TABLET (FP) PO SCH (06:16)
[2022-11-04] MEDS ORDERED: methaDONE HCL 10 MG TABLET PO ONE (06:25)
[2022-11-04] MEDS ORDERED: methaDONE 40 MG, methaDONE 30 MG PO ONE (06:45)
[2022-11-04] MEDS: FOLIC ACID 1 MG TABLET (FP) PO SCH (12:39)
[2022-11-04] MEDS: CHOLECALCIFEROL (VIT D3) 1,000 UNIT (25 MCG) TABLET PO SCH (12:39)
[2022-11-04] MEDS: predniSONE 10 MG TABLET (UD) PO SCH (12:39)
[2022-11-04] MEDS: FUROSEMIDE 40 MG TABLET (FP) PO SCH (12:39)
[2022-11-04] MEDS: NYSTATIN 100,000 UNIT/GM TOPICAL CREAM 15 GM TUBE TP SCH ×2 (12:40→22:15)
[2022-11-04] MEDS: FLUTICASONE PROP 0.05% 16 GM NASAL SPRAY NS SCH (12:40)
[2022-11-04] MEDS: ABACAVIR/DOLUTEGRAVIR/LAMIVUDI (TRIUMEQ) TABLET PO SCH (12:40)
[2022-11-04] MEDS: ENOXAPARIN NA (PORCINE) 40 MG/0.4 ML DISP.SYRIN SQ SCH (12:40)
[2022-11-04] MEDS: ATORVASTATIN CA 10 MG TABLET (FP) PO SCH (22:15)
[2022-11-05] MEDS ORDERED: methaDONE HCL 10 MG TABLET (FOR DETOX USE ONLY) PO ONE (06:00)
[2022-11-05] MEDS: methaDONE 40 MG, methaDONE 30 MG PO SCH (06:52)
[2022-11-05] MEDS: LEVOTHYROXINE NA 125 MCG TABLET (FP) PO SCH (06:53)
[2022-11-05] MEDS: predniSONE 10 MG TABLET (UD) PO SCH (10:57)
[2022-11-05] MEDS: FLUTICASONE PROP 0.05% 16 GM NASAL SPRAY NS SCH (10:57)
[2022-11-05] MEDS: FOLIC ACID 1 MG TABLET (FP) PO SCH (10:57)
[2022-11-05] MEDS: FUROSEMIDE 40 MG TABLET (FP) PO SCH (10:57)
[2022-11-05] MEDS: ENOXAPARIN NA (PORCINE) 40 MG/0.4 ML DISP.SYRIN SQ SCH (10:57)
[2022-11-05] MEDS: NYSTATIN 100,000 UNIT/GM TOPICAL CREAM 15 GM TUBE TP SCH ×2 (10:57→21:55)
[2022-11-05] MEDS: ABACAVIR/DOLUTEGRAVIR/LAMIVUDI (TRIUMEQ) TABLET PO SCH (10:57)
[2022-11-05] MEDS: CHOLECALCIFEROL (VIT D3) 1,000 UNIT (25 MCG) TABLET PO SCH (10:57)
[2022-11-05] MEDS: ATORVASTATIN CA 10 MG TABLET (FP) PO SCH (21:03)
[2022-11-06] MEDS: LEVOTHYROXINE NA 125 MCG TABLET (FP) PO SCH (06:18)
[2022-11-06] MEDS: methaDONE 40 MG, methaDONE 30 MG PO SCH (06:21)
[2022-11-06] MEDS: FUROSEMIDE 20 MG TABLET (FP) PO SCH (10:17)
[2022-11-06] MEDS: FOLIC ACID 1 MG TABLET (FP) PO SCH (10:17)
[2022-11-06] MEDS: CHOLECALCIFEROL (VIT D3) 1,000 UNIT (25 MCG) TABLET PO SCH (10:17)
[2022-11-06] MEDS: predniSONE 10 MG TABLET (UD) PO SCH (10:17)
[2022-11-06] MEDS: ABACAVIR/DOLUTEGRAVIR/LAMIVUDI (TRIUMEQ) TABLET PO SCH (10:18)
[2022-11-06] MEDS: FLUTICASONE PROP 0.05% 16 GM NASAL SPRAY NS SCH (10:19)
[2022-11-06] MEDS: NYSTATIN 100,000 UNIT/GM TOPICAL CREAM 15 GM TUBE TP SCH (10:19)
[2022-11-06] MEDS: ATORVASTATIN CA 10 MG TABLET (FP) PO SCH (21:49)
[2022-11-07] MEDS: NYSTATIN 100,000 UNIT/GM TOPICAL CREAM 15 GM TUBE TP SCH ×3 (02:17→21:55)
[2022-11-07] MEDS: LEVOTHYROXINE NA 125 MCG TABLET (FP) PO SCH (06:12)
[2022-11-07] MEDS: methaDONE 40 MG, methaDONE 30 MG PO SCH (06:12)
[2022-11-07] MEDS: CHOLECALCIFEROL (VIT D3) 1,000 UNIT (25 MCG) TABLET PO SCH (13:04)
[2022-11-07] MEDS: FUROSEMIDE 20 MG TABLET (FP) PO SCH (13:04)
[2022-11-07] MEDS: FLUTICASONE PROP 0.05% 16 GM NASAL SPRAY NS SCH (13:05)
[2022-11-07] MEDS: FOLIC ACID 1 MG TABLET (FP) PO SCH (13:05)
[2022-11-07] MEDS: predniSONE 10 MG TABLET (UD) PO SCH (13:05)
[2022-11-07] MEDS: ABACAVIR/DOLUTEGRAVIR/LAMIVUDI (TRIUMEQ) TABLET PO SCH (13:05)
[2022-11-07] MEDS: ATORVASTATIN CA 10 MG TABLET (FP) PO SCH (21:55)
[2022-11-08] MEDS: methaDONE 40 MG, methaDONE 30 MG PO SCH (06:43)
[2022-11-08] MEDS: LEVOTHYROXINE NA 125 MCG TABLET (FP) PO SCH (06:45)
[2022-11-08] MEDS: ABACAVIR/DOLUTEGRAVIR/LAMIVUDI (TRIUMEQ) TABLET PO SCH (10:32)
[2022-11-08] MEDS: FLUTICASONE PROP 0.05% 16 GM NASAL SPRAY NS SCH (10:32)
[2022-11-08] MEDS: NYSTATIN 100,000 UNIT/GM TOPICAL CREAM 15 GM TUBE TP SCH ×2 (10:32→23:42)
[2022-11-08] MEDS: predniSONE 10 MG TABLET (UD) PO SCH (10:32)
[2022-11-08] MEDS: FUROSEMIDE 20 MG TABLET (FP) PO SCH (10:32)
[2022-11-08] MEDS: FOLIC ACID 1 MG TABLET (FP) PO SCH (10:32)
[2022-11-08] MEDS: CHOLECALCIFEROL (VIT D3) 1,000 UNIT (25 MCG) TABLET PO SCH (10:32)
[2022-11-08] MEDS: ATORVASTATIN CA 10 MG TABLET (FP) PO SCH (22:41)
[2022-11-09] MEDS: LEVOTHYROXINE NA 125 MCG TABLET (FP) PO SCH (06:39)
[2022-11-09] MEDS: methaDONE 40 MG, methaDONE 30 MG PO SCH (06:39)
[2022-11-09 09:38] LABS: HEMATOCRIT 34.4 % (32.4-45.2); HEMOGLOBIN 10.7 GM/dL (10.7-15.3); MCH 27.4 pg (25.7-33.7); MCHC 31.1 g/dl (32.0-36.0); MEAN CELL VOLUME 88.1 fl (80-96); RBC 3.91 M/mm3 (3.60-5.2); RDW 18.2 % (11.6-15.6); WHITE BLOOD COUNT 7.3 K/mm3 (4.0-10.0)
[2022-11-09 09:51] LABS: MEAN PLT VOLUME 8.4 fl (7.5-11.1); PLATELET COUNT 179 10^3/uL (134-434)
[2022-11-09] MEDS: CHOLECALCIFEROL (VIT D3) 1,000 UNIT (25 MCG) TABLET PO SCH (10:00)
[2022-11-09] MEDS: predniSONE 10 MG TABLET (UD) PO SCH (10:00)
[2022-11-09] MEDS: FUROSEMIDE 20 MG TABLET (FP) PO SCH (10:00)
[2022-11-09] MEDS: FOLIC ACID 1 MG TABLET (FP) PO SCH (10:00)
[2022-11-09] MEDS: ENOXAPARIN NA (PORCINE) 40 MG/0.4 ML DISP.SYRIN SQ SCH (10:00)
[2022-11-09] MEDS: ABACAVIR/DOLUTEGRAVIR/LAMIVUDI (TRIUMEQ) TABLET PO SCH (10:14)
[2022-11-09 10:18] LABS: CALCIUM 9.7 mg/dL (8.5-10.1)
[2022-11-09 10:19] LABS: MAGNESIUM 1.9 mg/dL (1.8-2.4)
[2022-11-09] MEDS: NYSTATIN 100,000 UNIT/GM TOPICAL CREAM 15 GM TUBE TP SCH ×2 (10:19→21:35)
[2022-11-09 10:20] LABS: BLOOD UREA NITROGEN 14.2 mg/dL (7-18)
[2022-11-09] MEDS: FLUTICASONE PROP 0.05% 16 GM NASAL SPRAY NS SCH (10:20)
[2022-11-09 10:22] LABS: PHOSPHOROUS 3.9 mg/dL (2.5-4.9)
[2022-11-09 10:23] LABS: CREATININE 0.9 mg/dL (0.55-1.3)
[2022-11-09 10:24] LABS: BILIRUBIN,TOTAL 0.4 mg/dL (0.2-1); TOT PROT 6.4 g/dl (6.4-8.2)
[2022-11-09] MEDS: ATORVASTATIN CA 10 MG TABLET (FP) PO SCH (21:35)
[2022-11-10] MEDS: methaDONE 40 MG, methaDONE 30 MG PO SCH (06:12)
[2022-11-10] MEDS: LEVOTHYROXINE NA 125 MCG TABLET (FP) PO SCH (06:12)
[2022-11-10] MEDS: FUROSEMIDE 20 MG TABLET (FP) PO SCH ×2 (12:50→13:07)
[2022-11-10] MEDS: CHOLECALCIFEROL (VIT D3) 1,000 UNIT (25 MCG) TABLET PO SCH (13:08)
[2022-11-10] MEDS: ABACAVIR/DOLUTEGRAVIR/LAMIVUDI (TRIUMEQ) TABLET PO SCH (13:09)
[2022-11-10] MEDS: FOLIC ACID 1 MG TABLET (FP) PO SCH (13:09)
[2022-11-10] MEDS: predniSONE 10 MG TABLET (UD) PO SCH (13:10)
[2022-11-10] MEDS: ENOXAPARIN NA (PORCINE) 40 MG/0.4 ML DISP.SYRIN SQ SCH (13:10)
[2022-11-10] MEDS: FLUTICASONE PROP 0.05% 16 GM NASAL SPRAY NS SCH (13:10)
[2022-11-10] MEDS: NYSTATIN 100,000 UNIT/GM TOPICAL CREAM 15 GM TUBE TP SCH ×2 (13:10→21:32)
[2022-11-10] MEDS: ATORVASTATIN CA 10 MG TABLET (FP) PO SCH (21:32)
[2022-11-11] MEDS: FUROSEMIDE 20 MG TABLET (FP) PO SCH ×2 (06:13→13:06)
[2022-11-11] MEDS: methaDONE 40 MG, methaDONE 30 MG PO SCH (06:13)
[2022-11-11] MEDS: LEVOTHYROXINE NA 125 MCG TABLET (FP) PO SCH (06:14)
[2022-11-11] MEDS: predniSONE 10 MG TABLET (UD) PO SCH (09:34)
[2022-11-11] MEDS: ABACAVIR/DOLUTEGRAVIR/LAMIVUDI (TRIUMEQ) TABLET PO SCH (09:34)
[2022-11-11] MEDS: FOLIC ACID 1 MG TABLET (FP) PO SCH (09:34)
[2022-11-11] MEDS: CHOLECALCIFEROL (VIT D3) 1,000 UNIT (25 MCG) TABLET PO SCH (09:34)
[2022-11-11] MEDS: NYSTATIN 100,000 UNIT/GM TOPICAL CREAM 15 GM TUBE TP SCH ×2 (09:34→22:18)
[2022-11-11] MEDS: FLUTICASONE PROP 0.05% 16 GM NASAL SPRAY NS SCH (09:34)
[2022-11-11] MEDS: ENOXAPARIN NA (PORCINE) 40 MG/0.4 ML DISP.SYRIN SQ SCH (09:34)
[2022-11-11 10:36] LABS: MAGNESIUM 1.7 mg/dL (1.8-2.4)
[2022-11-11 10:40] LABS: PHOSPHOROUS 4.2 mg/dL (2.5-4.9)
[2022-11-11 10:58] LABS: HEMATOCRIT 33.3 % (32.4-45.2); HEMOGLOBIN 10.1 GM/dL (10.7-15.3); MCHC 30.3 g/dl (32.0-36.0); MEAN CELL VOLUME 89.1 fl (80-96); MEAN PLT VOLUME 8.6 fl (7.5-11.1); PLATELET COUNT 219 10^3/uL (134-434); RBC 3.74 M/mm3 (3.60-5.2); RDW 18.9 % (11.6-15.6); WHITE BLOOD COUNT 7.3 K/mm3 (4.0-10.0)
[2022-11-11] MEDS ORDERED: MAGNESIUM SULF 50% (8.12 MEQ/2 ML-1 GM VIAL) IVPB ONE (14:16)
[2022-11-11] MEDS ORDERED: MAGNESIUM OXIDE 400 MG TABLET (FP) PO ONE (15:00)
[2022-11-11] MEDS: ATORVASTATIN CA 10 MG TABLET (FP) PO SCH (22:14)
[2022-11-12] MEDS: LEVOTHYROXINE NA 125 MCG TABLET (FP) PO SCH (06:19)
[2022-11-12] MEDS: FUROSEMIDE 20 MG TABLET (FP) PO SCH ×2 (06:19→14:18)
[2022-11-12] MEDS: methaDONE 40 MG, methaDONE 30 MG PO SCH (06:19)
[2022-11-12 10:14] LABS: HEMATOCRIT 35.3 % (32.4-45.2); HEMOGLOBIN 10.5 GM/dL (10.7-15.3); MCH 26.8 pg (25.7-33.7); MCHC 29.8 g/dl (32.0-36.0); MEAN CELL VOLUME 89.8 fl (80-96); MEAN PLT VOLUME 8.5 fl (7.5-11.1); PLATELET COUNT 212 10^3/uL (134-434); RBC 3.93 M/mm3 (3.60-5.2); RDW 18.7 % (11.6-15.6); WHITE BLOOD COUNT 7.2 K/mm3 (4.0-10.0)
[2022-11-12] MEDS: CHOLECALCIFEROL (VIT D3) 1,000 UNIT (25 MCG) TABLET PO SCH (10:21)
[2022-11-12] MEDS: FOLIC ACID 1 MG TABLET (FP) PO SCH (10:22)
[2022-11-12] MEDS: ENOXAPARIN NA (PORCINE) 40 MG/0.4 ML DISP.SYRIN SQ SCH (10:22)
[2022-11-12] MEDS: predniSONE 10 MG TABLET (UD) PO SCH (10:22)
[2022-11-12] MEDS: NYSTATIN 100,000 UNIT/GM TOPICAL CREAM 15 GM TUBE TP SCH ×2 (10:23→21:24)
[2022-11-12] MEDS: FLUTICASONE PROP 0.05% 16 GM NASAL SPRAY NS SCH (10:23)
[2022-11-12] MEDS: ABACAVIR/DOLUTEGRAVIR/LAMIVUDI (TRIUMEQ) TABLET PO SCH (10:33)
[2022-11-12 10:54] LABS: PHOSPHOROUS 4.2 mg/dL (2.5-4.9)
[2022-11-12] MEDS: ATORVASTATIN CA 10 MG TABLET (FP) PO SCH (21:24)
[2022-11-13] MEDS: methaDONE 40 MG, methaDONE 30 MG PO SCH (06:08)
[2022-11-13] MEDS: LEVOTHYROXINE NA 125 MCG TABLET (FP) PO SCH (06:09)
[2022-11-13] MEDS: FUROSEMIDE 20 MG TABLET (FP) PO SCH ×2 (06:09→14:19)
[2022-11-13] MEDS: predniSONE 10 MG TABLET (UD) PO SCH (11:16)
[2022-11-13] MEDS: CHOLECALCIFEROL (VIT D3) 1,000 UNIT (25 MCG) TABLET PO SCH (11:16)
[2022-11-13] MEDS: FOLIC ACID 1 MG TABLET (FP) PO SCH (11:16)
[2022-11-13] MEDS: ENOXAPARIN NA (PORCINE) 40 MG/0.4 ML DISP.SYRIN SQ SCH (11:16)
[2022-11-13] MEDS: ABACAVIR/DOLUTEGRAVIR/LAMIVUDI (TRIUMEQ) TABLET PO SCH (11:16)
[2022-11-13] MEDS: FLUTICASONE PROP 0.05% 16 GM NASAL SPRAY NS SCH (11:17)
[2022-11-13] MEDS: NYSTATIN 100,000 UNIT/GM TOPICAL CREAM 15 GM TUBE TP SCH ×2 (11:17→21:37)
[2022-11-13] MEDS ORDERED: MAGNESIUM 1GM/D5W - 1 GM/100 ML IVPB IVPB ONE (12:58)
[2022-11-13] MEDS: ATORVASTATIN CA 10 MG TABLET (FP) PO SCH (21:36)
[2022-11-14] MEDS: FUROSEMIDE 20 MG TABLET (FP) PO SCH ×2 (06:36→14:10)
[2022-11-14] MEDS: LACTATED RINGERS SOLUTION 1,000 ML/1,000 ML INFUS.BAG IV SCH (06:37)
[2022-11-14] MEDS: methaDONE 40 MG, methaDONE 30 MG PO SCH (06:43)
[2022-11-14] MEDS: LEVOTHYROXINE NA 125 MCG TABLET (FP) PO SCH (06:44)
[2022-11-14] MEDS: CHOLECALCIFEROL (VIT D3) 1,000 UNIT (25 MCG) TABLET PO SCH (09:46)
[2022-11-14] MEDS: ABACAVIR/DOLUTEGRAVIR/LAMIVUDI (TRIUMEQ) TABLET PO SCH (09:46)
[2022-11-14] MEDS: FOLIC ACID 1 MG TABLET (FP) PO SCH (09:46)
[2022-11-14] MEDS: ENOXAPARIN NA (PORCINE) 40 MG/0.4 ML DISP.SYRIN SQ SCH (09:46)
[2022-11-14] MEDS: predniSONE 10 MG TABLET (UD) PO SCH (09:46)
[2022-11-14] MEDS: FLUTICASONE PROP 0.05% 16 GM NASAL SPRAY NS SCH (09:47)
[2022-11-14] MEDS: NYSTATIN 100,000 UNIT/GM TOPICAL CREAM 15 GM TUBE TP SCH ×2 (09:47→21:38)
[2022-11-14] MEDS: BACITRACIN ZINC 15 GM TUBE TOPICAL OINTMENT TP SCH (11:57)
[2022-11-14] MEDS: ATORVASTATIN CA 10 MG TABLET (FP) PO SCH (21:36)
[2022-11-15] MEDS: methaDONE 40 MG, methaDONE 30 MG PO SCH (06:22)
[2022-11-15] MEDS: LEVOTHYROXINE NA 125 MCG TABLET (FP) PO SCH (06:23)
[2022-11-15] MEDS: FUROSEMIDE 20 MG TABLET (FP) PO SCH ×2 (06:24→15:17)
[2022-11-15] MEDS: NYSTATIN 100,000 UNIT/GM TOPICAL CREAM 15 GM TUBE TP SCH ×2 (11:14→21:39)
[2022-11-15] MEDS: FOLIC ACID 1 MG TABLET (FP) PO SCH (11:14)
[2022-11-15] MEDS: ABACAVIR/DOLUTEGRAVIR/LAMIVUDI (TRIUMEQ) TABLET PO SCH (11:14)
[2022-11-15] MEDS: predniSONE 10 MG TABLET (UD) PO SCH (11:14)
[2022-11-15] MEDS: BACITRACIN ZINC 15 GM TUBE TOPICAL OINTMENT TP SCH (11:15)
[2022-11-15] MEDS: FLUTICASONE PROP 0.05% 16 GM NASAL SPRAY NS SCH (11:16)
[2022-11-15] MEDS: CHOLECALCIFEROL (VIT D3) 1,000 UNIT (25 MCG) TABLET PO SCH (11:17)
[2022-11-15] MEDS: LACTATED RINGERS SOLUTION 1,000 ML/1,000 ML INFUS.BAG IV SCH (11:19)
[2022-11-15] MEDS: ATORVASTATIN CA 10 MG TABLET (FP) PO SCH (21:39)
[2022-11-16] MEDS: LEVOTHYROXINE NA 125 MCG TABLET (FP) PO SCH (06:28)
[2022-11-16] MEDS: methaDONE 40 MG, methaDONE 30 MG PO SCH (06:29)
[2022-11-16] MEDS: FUROSEMIDE 40 MG TABLET (FP) PO SCH ×3 (06:29→15:01)
[2022-11-16 09:24] LABS: BASO % 0.5 % (0-2.0); EOS % 0.9 % (0-4.5); HEMATOCRIT 33.7 % (32.4-45.2); HEMOGLOBIN 10.3 GM/dL (10.7-15.3); LYMPH % 23.6 % (8-40); MCH 27.6 pg (25.7-33.7); MCHC 30.6 g/dl (32.0-36.0); MEAN CELL VOLUME 90.4 fl (80-96); MEAN PLT VOLUME 8.5 fl (7.5-11.1); MONO % 8.4 % (3.8-10.2); NEUT % 66.6 % (42.8-82.8); PLATELET COUNT 194 10^3/uL (134-434); RBC 3.72 M/mm3 (3.60-5.2); RDW 18.9 % (11.6-15.6); WHITE BLOOD COUNT 8.7 K/mm3 (4.0-10.0)
[2022-11-16 09:42] LABS: CHLORIDE 90 mmol/L (98-107); SODIUM 139 mmol/L (136-145)
[2022-11-16 09:53] LABS: CALCIUM 9.8 mg/dL (8.5-10.1); GLUCOSE,RANDOM 77 mg/dL (74-106)
[2022-11-16 09:54] LABS: ALBUMIN 3.2 g/dl (3.4-5.0); BLOOD UREA NITROGEN 17.9 mg/dL (7-18)
[2022-11-16 09:55] LABS: BILIRUBIN,TOTAL 0.5 mg/dL (0.2-1); TOT PROT 6.8 g/dl (6.4-8.2)
[2022-11-16 09:56] LABS: ALK PHOS 67 U/L (45-117); SGOT/AST 17 U/L (15-37)
[2022-11-16 09:57] LABS: SGPT/ALT 14 U/L (13-61)
[2022-11-16 09:59] LABS: ANION GAP 5 MMOL/L (8-16); CO2 > 45 mmol/L (21-32)
[2022-11-16] MEDS: predniSONE 10 MG TABLET (UD) PO SCH (10:33)
[2022-11-16] MEDS: FOLIC ACID 1 MG TABLET (FP) PO SCH (10:33)
[2022-11-16] MEDS: CHOLECALCIFEROL (VIT D3) 1,000 UNIT (25 MCG) TABLET PO SCH (10:33)
[2022-11-16] MEDS: FLUTICASONE PROP 0.05% 16 GM NASAL SPRAY NS SCH (10:34)
[2022-11-16] MEDS: ABACAVIR/DOLUTEGRAVIR/LAMIVUDI (TRIUMEQ) TABLET PO SCH (10:34)
[2022-11-16] MEDS: BACITRACIN ZINC 15 GM TUBE TOPICAL OINTMENT TP SCH (10:34)
[2022-11-16] MEDS: NYSTATIN 100,000 UNIT/GM TOPICAL CREAM 15 GM TUBE TP SCH ×2 (10:34→22:33)
[2022-11-16] MEDS: ATORVASTATIN CA 10 MG TABLET (FP) PO SCH (22:33)
[2022-11-17] MEDS: methaDONE 40 MG, methaDONE 30 MG PO SCH (06:41)
[2022-11-17] MEDS: FUROSEMIDE 40 MG TABLET (FP) PO SCH ×2 (06:41→15:26)
[2022-11-17] MEDS: LEVOTHYROXINE NA 125 MCG TABLET (FP) PO SCH (07:24)
[2022-11-17 09:43] LABS: CHLORIDE 92 mmol/L (98-107); SODIUM 140 mmol/L (136-145)
[2022-11-17 09:46] LABS: CALCIUM 9.8 mg/dL (8.5-10.1); GLUCOSE,RANDOM 80 mg/dL (74-106)
[2022-11-17 09:47] LABS: BLOOD UREA NITROGEN 17.6 mg/dL (7-18)
[2022-11-17] MEDS: BACITRACIN ZINC 15 GM TUBE TOPICAL OINTMENT TP SCH (10:16)
[2022-11-17] MEDS: predniSONE 10 MG TABLET (UD) PO SCH (10:17)
[2022-11-17] MEDS: ABACAVIR/DOLUTEGRAVIR/LAMIVUDI (TRIUMEQ) TABLET PO SCH (10:18)
[2022-11-17] MEDS: CHOLECALCIFEROL (VIT D3) 1,000 UNIT (25 MCG) TABLET PO SCH (10:18)
[2022-11-17] MEDS: FOLIC ACID 1 MG TABLET (FP) PO SCH (10:18)
[2022-11-17] MEDS: NYSTATIN 100,000 UNIT/GM TOPICAL CREAM 15 GM TUBE TP SCH ×2 (10:26→23:48)
[2022-11-17] MEDS: FLUTICASONE PROP 0.05% 16 GM NASAL SPRAY NS SCH (10:26)
[2022-11-17 10:45] LABS: ANION GAP 3 MMOL/L (8-16); CO2 > 45 mmol/L (21-32)
[2022-11-17] MEDS: ATORVASTATIN CA 10 MG TABLET (FP) PO SCH (21:30)
[2022-11-18] MEDS ORDERED: methaDONE HCL 10 MG TABLET PO SCH (06:30)
[2022-11-18] MEDS: FUROSEMIDE 40 MG TABLET (FP) PO SCH ×2 (07:14→14:37)
[2022-11-18] MEDS: LEVOTHYROXINE NA 125 MCG TABLET (FP) PO SCH (07:14)
[2022-11-18] MEDS: methaDONE 40 MG, methaDONE 30 MG PO SCH (07:28)
[2022-11-18] MEDS: FOLIC ACID 1 MG TABLET (FP) PO SCH (10:12)
[2022-11-18] MEDS: predniSONE 10 MG TABLET (UD) PO SCH (10:12)
[2022-11-18] MEDS: FLUTICASONE PROP 0.05% 16 GM NASAL SPRAY NS SCH (10:12)
[2022-11-18] MEDS: NYSTATIN 100,000 UNIT/GM TOPICAL CREAM 15 GM TUBE TP SCH ×2 (10:12→21:07)
[2022-11-18] MEDS: CHOLECALCIFEROL (VIT D3) 1,000 UNIT (25 MCG) TABLET PO SCH (10:12)
[2022-11-18] MEDS: ABACAVIR/DOLUTEGRAVIR/LAMIVUDI (TRIUMEQ) TABLET PO SCH (10:12)
[2022-11-18] MEDS: BACITRACIN ZINC 15 GM TUBE TOPICAL OINTMENT TP SCH (10:14)
[2022-11-18] MEDS: ATORVASTATIN CA 10 MG TABLET (FP) PO SCH (21:07)
[2022-11-19] MEDS: LEVOTHYROXINE NA 125 MCG TABLET (FP) PO SCH (06:21)
[2022-11-19] MEDS: methaDONE 40 MG, methaDONE 30 MG PO SCH (06:21)
[2022-11-19] MEDS: FUROSEMIDE 40 MG TABLET (FP) PO SCH ×2 (06:21→14:27)
[2022-11-19] MEDS ORDERED: methaDONE 40 MG, methaDONE 30 MG PO SCH (07:15)
[2022-11-19] MEDS: FOLIC ACID 1 MG TABLET (FP) PO SCH (10:29)
[2022-11-19] MEDS: CHOLECALCIFEROL (VIT D3) 1,000 UNIT (25 MCG) TABLET PO SCH (10:29)
[2022-11-19] MEDS: predniSONE 10 MG TABLET (UD) PO SCH (10:29)
[2022-11-19] MEDS: NYSTATIN 100,000 UNIT/GM TOPICAL CREAM 15 GM TUBE TP SCH ×2 (10:30→21:35)
[2022-11-19] MEDS: FLUTICASONE PROP 0.05% 16 GM NASAL SPRAY NS SCH (10:30)
[2022-11-19] MEDS: BACITRACIN ZINC 15 GM TUBE TOPICAL OINTMENT TP SCH (11:05)
[2022-11-19] MEDS: ABACAVIR/DOLUTEGRAVIR/LAMIVUDI (TRIUMEQ) TABLET PO SCH (14:28)
[2022-11-19] MEDS: ATORVASTATIN CA 10 MG TABLET (FP) PO SCH (21:34)
[2022-11-20] MEDS: methaDONE 40 MG, methaDONE 30 MG PO SCH (06:21)
[2022-11-20] MEDS: LEVOTHYROXINE NA 125 MCG TABLET (FP) PO SCH (06:22)
[2022-11-20] MEDS: FUROSEMIDE 40 MG TABLET (FP) PO SCH ×2 (06:22→15:05)
[2022-11-20] MEDS: FOLIC ACID 1 MG TABLET (FP) PO SCH (10:47)
[2022-11-20] MEDS: CHOLECALCIFEROL (VIT D3) 1,000 UNIT (25 MCG) TABLET PO SCH (10:47)
[2022-11-20] MEDS: predniSONE 10 MG TABLET (UD) PO SCH (10:47)
[2022-11-20] MEDS: ABACAVIR/DOLUTEGRAVIR/LAMIVUDI (TRIUMEQ) TABLET PO SCH (10:47)
[2022-11-20] MEDS: NYSTATIN 100,000 UNIT/GM TOPICAL CREAM 15 GM TUBE TP SCH ×2 (10:48→21:07)
[2022-11-20] MEDS: FLUTICASONE PROP 0.05% 16 GM NASAL SPRAY NS SCH (10:48)
[2022-11-20] MEDS: BACITRACIN ZINC 15 GM TUBE TOPICAL OINTMENT TP SCH (10:48)
[2022-11-20] MEDS: ATORVASTATIN CA 10 MG TABLET (FP) PO SCH (21:07)
[2022-11-21] MEDS: methaDONE 40 MG, methaDONE 30 MG PO SCH (06:41)
[2022-11-21] MEDS: FUROSEMIDE 40 MG TABLET (FP) PO SCH ×2 (06:42→13:46)
[2022-11-21] MEDS: LEVOTHYROXINE NA 125 MCG TABLET (FP) PO SCH (06:42)
[2022-11-21 09:18] LABS: BASO % 0.5 % (0-2.0); EOS % 0.8 % (0-4.5); HEMATOCRIT 32.8 % (32.4-45.2); HEMOGLOBIN 10.3 GM/dL (10.7-15.3); LYMPH % 24.8 % (8-40); MCH 28.3 pg (25.7-33.7); MCHC 31.4 g/dl (32.0-36.0); MEAN CELL VOLUME 90.2 fl (80-96); MEAN PLT VOLUME 8.8 fl (7.5-11.1); MONO % 6.9 % (3.8-10.2); PLATELET COUNT 196 10^3/uL (134-434); RBC 3.64 M/mm3 (3.60-5.2); RDW 18.5 % (11.6-15.6); WHITE BLOOD COUNT 8.8 K/mm3 (4.0-10.0)
[2022-11-21] MEDS: CHOLECALCIFEROL (VIT D3) 1,000 UNIT (25 MCG) TABLET PO SCH (09:20)
[2022-11-21] MEDS: predniSONE 10 MG TABLET (UD) PO SCH (09:20)
[2022-11-21] MEDS: FOLIC ACID 1 MG TABLET (FP) PO SCH (09:20)
[2022-11-21] MEDS: ABACAVIR/DOLUTEGRAVIR/LAMIVUDI (TRIUMEQ) TABLET PO SCH (09:20)
[2022-11-21] MEDS: FLUTICASONE PROP 0.05% 16 GM NASAL SPRAY NS SCH (09:21)
[2022-11-21] MEDS: BACITRACIN ZINC 15 GM TUBE TOPICAL OINTMENT TP SCH (09:21)
[2022-11-21] MEDS: NYSTATIN 100,000 UNIT/GM TOPICAL CREAM 15 GM TUBE TP SCH ×2 (09:21→21:33)
[2022-11-21 09:52] LABS: CALCIUM 9.6 mg/dL (8.5-10.1)
[2022-11-21 09:53] LABS: BLOOD UREA NITROGEN 17.2 mg/dL (7-18)
[2022-11-21 09:54] LABS: CREATININE 1.1 mg/dL (0.55-1.3)
[2022-11-21] MEDS: predniSONE 5 MG TABLET (UD) PO SCH (10:21)
[2022-11-21] MEDS: ATORVASTATIN CA 10 MG TABLET (FP) PO SCH (21:33)
[2022-11-22] MEDS: LEVOTHYROXINE NA 125 MCG TABLET (FP) PO SCH (06:02)
[2022-11-22] MEDS: methaDONE 40 MG, methaDONE 30 MG PO SCH (06:02)
[2022-11-22] MEDS: FUROSEMIDE 40 MG TABLET (FP) PO SCH ×2 (06:02→14:30)
[2022-11-22] MEDS: predniSONE 5 MG TABLET (UD) PO SCH (09:24)
[2022-11-22] MEDS: FOLIC ACID 1 MG TABLET (FP) PO SCH (09:24)
[2022-11-22] MEDS: ABACAVIR/DOLUTEGRAVIR/LAMIVUDI (TRIUMEQ) TABLET PO SCH (09:24)
[2022-11-22] MEDS: CHOLECALCIFEROL (VIT D3) 1,000 UNIT (25 MCG) TABLET PO SCH (09:24)
[2022-11-22] MEDS: BACITRACIN ZINC 15 GM TUBE TOPICAL OINTMENT TP SCH (09:25)
[2022-11-22] MEDS: NYSTATIN 100,000 UNIT/GM TOPICAL CREAM 15 GM TUBE TP SCH ×2 (09:25→21:18)
[2022-11-22] MEDS: FLUTICASONE PROP 0.05% 16 GM NASAL SPRAY NS SCH (09:25)
[2022-11-22] MEDS: ATORVASTATIN CA 10 MG TABLET (FP) PO SCH (21:10)
[2022-11-23] MEDS: methaDONE 40 MG, methaDONE 30 MG PO SCH (05:50)
[2022-11-23] MEDS: LEVOTHYROXINE NA 125 MCG TABLET (FP) PO SCH (06:04)
[2022-11-23] MEDS: FUROSEMIDE 40 MG TABLET (FP) PO SCH ×2 (06:04→13:34)
[2022-11-23] MEDS: CHOLECALCIFEROL (VIT D3) 1,000 UNIT (25 MCG) TABLET PO SCH (10:25)
[2022-11-23] MEDS: ABACAVIR/DOLUTEGRAVIR/LAMIVUDI (TRIUMEQ) TABLET PO SCH (10:25)
[2022-11-23] MEDS: predniSONE 5 MG TABLET (UD) PO SCH (10:25)
[2022-11-23] MEDS: NYSTATIN 100,000 UNIT/GM TOPICAL CREAM 15 GM TUBE TP SCH (10:26)
[2022-11-23] MEDS: BACITRACIN ZINC 15 GM TUBE TOPICAL OINTMENT TP SCH (10:26)
[2022-11-23] MEDS: FOLIC ACID 1 MG TABLET (FP) PO SCH (10:26)
[2022-11-23] MEDS: FLUTICASONE PROP 0.05% 16 GM NASAL SPRAY NS SCH (10:26)
[2022-11-23 17:52] VITALS: BP 135/87; PULSE 97; RESP 17; TEMP 98.8
== END 2022-11-23 17:47 | disposition home health service (06) | DRG 207 ==
LOC: JER 10:33 → JERBED 12:33 → J5S 09-30 23:40
PROVIDERS: ADMIT Internal Medicine; ATTEND Internal Medicine
PROC: 5A1955Z Respiratory Ventilation, Greater than 96 Consecutive Hours (ICD-10-PCS; principal; 2022-09-29)
DX: J96.21 Acute and chronic respiratory failure with hypoxia (principal); J15.211 Pneumonia due to Methicillin susceptible Staphylococcus aureus; I50.33 Acute on chronic diastolic (congestive) heart failure; B20 Human immunodeficiency virus [HIV] disease; F11.20 Opioid dependence, uncomplicated; J44.0 Chronic obstructive pulmonary disease with (acute) lower respiratory infection; J44.1 Chronic obstructive pulmonary disease with (acute) exacerbation; I13.0 Hypertensive heart and chronic kidney disease with heart failure and stage 1 through stage 4 chronic kidney disease, or unspecified chronic kidney disease; E87.29 Other acidosis; E03.9 Hypothyroidism, unspecified; I10 Essential (primary) hypertension; F32.A Depression, unspecified; E78.5 Hyperlipidemia, unspecified; Z93.0 Tracheostomy status; J96.22 Acute and chronic respiratory failure with hypercapnia; E87.70 Fluid overload, unspecified; N18.9 Chronic kidney disease, unspecified; E87.6 Hypokalemia
CPT/HCPCS: 0241U-QW; 36415; 36600; 71045-TC-FY; 80048; 80053; 80061; 82550; 82803; 83036; 83735; 83880; 84100; 84484; 85025; 85027; 85610; 85730; 87070; 87186; 87205; 87899; 93005; 93010; 93306-TC; 93971-TC; 94002; 94640; 97116-GP; 97161-GP; 99285-25; C9803-CS; U0003; U0005

== ENCOUNTER 2023-04-09 17:56 | Inpatient (IN) | payer OTHER ==
[2023-04-09] MEDS ORDERED: ALBUTEROL SO4 2.5/IPRATROPIUM 0.5 INH SOL 3 ML VIAL.NEB. NEB ONE ×2 (18:18→18:21)
[2023-04-09] MEDS ORDERED: methylPREDNISolone NA SUCC 125 MG/2 ML VIAL IVPUSH ONE (18:21)
[2023-04-09] MEDS ORDERED: methylPREDNISolone NA SUCC 125 MG/2 ML VIAL ONE (18:44)
[2023-04-09] MEDS ORDERED: AZITHROMYCIN IVPB 500 MG in DEXTROSE 5%-WATER - 250 ML IVPB ONE (18:49)
[2023-04-09 18:52] LABS: VENOUS O2 SATURATION 45.6 % (70-80); VENOUS PCO2 68.7 mmHg (38-52); VENOUS PH 7.397 (7.310-7.410)
[2023-04-09 19:02] LABS: INR 1.14 (0.83-1.09); PROTHROMBIN TIME (PATIENT) 13.2 SEC (9.7-13.0)
[2023-04-09 19:04] LABS: ACTIVATED PTT 20.4 SECONDS (25.2-36.5)
[2023-04-09] MEDS ORDERED: AZITHROMYCIN IVPB 500 MG/250 ML BAG IVPB ONE (19:19)
[2023-04-09 19:33] LABS: POTASSIUM 4.1 mmol/L (3.5-5.1)
[2023-04-09 19:35] LABS: ALBUMIN 2.7 g/dl (3.4-5.0); BLOOD UREA NITROGEN 37.5 mg/dL (7-18); CALCIUM 8.6 mg/dL (8.5-10.1)
[2023-04-09 19:38] LABS: CREATININE 1.3 mg/dL (0.55-1.3); HEMATOCRIT 36.7 % (32.4-45.2); HEMOGLOBIN 10.6 GM/dL (10.7-15.3); MCH 24.4 pg (25.7-33.7); MCHC 28.8 g/dl (32.0-36.0); MEAN CELL VOLUME 84.5 fl (80-96); MEAN PLT VOLUME 9.2 fl (7.5-11.1); PLATELET COUNT 117 10^3/uL (134-434); RBC 4.34 M/mm3 (3.60-5.2); RDW 24.8 % (11.6-15.6); WHITE BLOOD COUNT 12.4 K/mm3 (4.0-10.0)
[2023-04-09 19:40] LABS: ADD RBC MORPHOLOGY YES; BILIRUBIN,TOTAL 2.9 mg/dL (0.2-1); TOT PROT 6.2 g/dl (6.4-8.2)
[2023-04-09 19:56] LABS: ANISOCYTOSIS 3+; MACROCYTOSIS 1+
[2023-04-09] MEDS ORDERED: CEFEPIME HCL 1 GM VIAL (RESTRICTED TO ID) IVPB ONE (20:44)
[2023-04-09] MEDS ORDERED: CEFEPIME 1 GM/100 ML BAG IVPB ONE (21:55)
[2023-04-09] MEDS ORDERED: LORATADINE 10 MG TABLET PO PRN (23:44)
[2023-04-10] MEDS: MEROPENEM 1 GM in DEXTROSE 5%-WATER 100 ML IVPB SCH ×2 (01:26→09:24)
[2023-04-10] MEDS: methylPREDNISolone NA SUCC 40 MG/1 ML VIAL IVPUSH SCH ×3 (01:27→17:11)
[2023-04-10] MEDS ORDERED: MEROPENEM 1 GM in DEXTROSE 5%-WATER 100 ML IVPB SCH (02:00)
[2023-04-10] MEDS ORDERED: methaDONE HCL 10 MG TABLET PO SCH (06:00)
[2023-04-10] MEDS: LEVOTHYROXINE NA 125 MCG TABLET (FP) PO SCH (06:12)
[2023-04-10 08:11] LABS: POTASSIUM 4.1 mmol/L (3.5-5.1)
[2023-04-10 08:18] LABS: CALCIUM 8.4 mg/dL (8.5-10.1)
[2023-04-10] MEDS: ALBUTEROL SO4 2.5/IPRATROPIUM 0.5 INH SOL 3 ML VIAL.NEB. NEB SCH ×4 (08:18→20:38)
[2023-04-10 08:19] LABS: ALBUMIN 2.5 g/dl (3.4-5.0); BLOOD UREA NITROGEN 36.7 mg/dL (7-18); MAGNESIUM 2.1 mg/dL (1.8-2.4)
[2023-04-10 08:22] LABS: CREATININE 1.1 mg/dL (0.55-1.3)
[2023-04-10 08:23] LABS: BILIRUBIN,TOTAL 2.2 mg/dL (0.2-1); TOT PROT 5.8 g/dl (6.4-8.2)
[2023-04-10 08:26] LABS: PHOSPHOROUS 4.4 mg/dL (2.5-4.9)
[2023-04-10 09:04] LABS: HEMATOCRIT 31.3 % (32.4-45.2); HEMOGLOBIN 8.7 GM/dL (10.7-15.3); MCH 24.5 pg (25.7-33.7); MCHC 27.9 g/dl (32.0-36.0); MEAN CELL VOLUME 88.1 fl (80-96); MEAN PLT VOLUME 9.1 fl (7.5-11.1); PLATELET COUNT 84 10^3/uL (134-434); RBC 3.55 M/mm3 (3.60-5.2); RDW 25.2 % (11.6-15.6); WHITE BLOOD COUNT 7.3 K/mm3 (4.0-10.0)
[2023-04-10] MEDS: PANTOPRAZOLE 40 MG TABLET PO SCH (09:24)
[2023-04-10] MEDS: ENOXAPARIN NA (PORCINE) 40 MG/0.4 ML DISP.SYRIN SQ SCH (09:24)
[2023-04-10] MEDS: CHOLECALCIFEROL (VIT D3) 1,000 UNIT (25 MCG) TABLET PO SCH (09:24)
[2023-04-10] MEDS: AZITHROMYCIN 250 MG TABLET PO SCH (09:33)
[2023-04-10] MEDS: ABACAVIR/DOLUTEGRAVIR/LAMIVUDI (TRIUMEQ) TABLET PO SCH (09:33)
[2023-04-10] MEDS: BUDESONIDE/FORMETEROL FUMARATE 160/4.5 mcg INHALER IH SCH ×4 (09:34→21:28)
[2023-04-10 10:41] LABS: ANISOCYTOSIS 1+; MACROCYTOSIS 0; OVALOCYTE 1+
[2023-04-11] MEDS: methylPREDNISolone NA SUCC 40 MG/1 ML VIAL IVPUSH SCH ×2 (02:08→09:22)
[2023-04-11] MEDS: LEVOTHYROXINE NA 125 MCG TABLET (FP) PO SCH (06:26)
[2023-04-11 08:41] LABS: EPI CELLS 27 /uL (0-25.1); HYALINE CASTS 0 /uL (0-3.1); PH,URINE 5.5 (5.0-8.0); URINE APPEARANCE CLOUDY; URINE BACTERIA 35 /uL (0-1359); URINE BILIRUBIN 1+ (NEGATIVE); URINE COLOR DK YELLOW; URINE GLUCOSE (UA) NEGATIVE (NEGATIVE); URINE KETONE NEGATIVE (NEGATIVE); URINE LEUK ESTERASE NEGATIVE (NEGATIVE); URINE NITRITE NEGATIVE (NEGATIVE); URINE PROTEIN 1+ (NEGATIVE); URINE RBC 13 /uL (0-23.9); URINE WBC 26 /uL (0-25.8)
[2023-04-11 08:49] LABS: YEAST NEGATIVE (NEGATIVE)
[2023-04-11] MEDS: ALBUTEROL SO4 2.5/IPRATROPIUM 0.5 INH SOL 3 ML VIAL.NEB. NEB SCH ×4 (08:50→20:42)
[2023-04-11] MEDS: ABACAVIR/DOLUTEGRAVIR/LAMIVUDI (TRIUMEQ) TABLET PO SCH (09:22)
[2023-04-11] MEDS: PANTOPRAZOLE 40 MG TABLET PO SCH (09:22)
[2023-04-11] MEDS: AZITHROMYCIN 250 MG TABLET PO SCH (09:22)
[2023-04-11] MEDS: ENOXAPARIN NA (PORCINE) 40 MG/0.4 ML DISP.SYRIN SQ SCH (09:22)
[2023-04-11] MEDS: CHOLECALCIFEROL (VIT D3) 1,000 UNIT (25 MCG) TABLET PO SCH (09:22)
[2023-04-11] MEDS: BUDESONIDE/FORMETEROL FUMARATE 160/4.5 mcg INHALER IH SCH ×2 (09:45→21:53)
[2023-04-11 12:26] VITALS: BMI 30.4
[2023-04-11] MEDS ORDERED: ALBUTEROL SO4 2.5/IPRATROPIUM 0.5 INH SOL 3 ML VIAL.NEB. NEB ONE (15:32)
[2023-04-11] MEDS: AMINO ACIDS/PROTEIN HYDROLYS 30 ML LIQUID.PKT PO SCH (18:32)
[2023-04-12] MEDS: LEVOTHYROXINE NA 125 MCG TABLET (FP) PO SCH (06:00)
[2023-04-12 06:12] VITALS: TEMP 98
[2023-04-12] MEDS: ALBUTEROL SO4 2.5/IPRATROPIUM 0.5 INH SOL 3 ML VIAL.NEB. NEB SCH ×2 (08:19→11:21)
[2023-04-12] MEDS: MULTIVITAMINS (DAILY MVI) TABLET (FP) PO SCH ×2 (09:22→13:08)
[2023-04-12] MEDS: AZITHROMYCIN 250 MG TABLET PO SCH (09:22)
[2023-04-12] MEDS: ABACAVIR/DOLUTEGRAVIR/LAMIVUDI (TRIUMEQ) TABLET PO SCH (09:22)
[2023-04-12] MEDS: PANTOPRAZOLE 40 MG TABLET PO SCH (09:22)
[2023-04-12] MEDS: CHOLECALCIFEROL (VIT D3) 1,000 UNIT (25 MCG) TABLET PO SCH (09:22)
[2023-04-12] MEDS: AMINO ACIDS/PROTEIN HYDROLYS 30 ML LIQUID.PKT PO SCH ×2 (09:23→13:08)
[2023-04-12] MEDS: ENOXAPARIN NA (PORCINE) 40 MG/0.4 ML DISP.SYRIN SQ SCH (09:23)
[2023-04-12] MEDS ORDERED: methylPREDNISolone NA SUCC 40 MG/1 ML VIAL IVPUSH SCH (10:00)
[2023-04-12] MEDS ORDERED: ASCORBIC ACID 500 MG TABLET (FP) PO SCH (10:00)
[2023-04-12] MEDS ORDERED: ZINC SULFATE 220 MG CAPSULE (FP) PO SCH (10:00)
[2023-04-12 13:07] VITALS: BP 145/78; PULSE 78; RESP 16
[2023-04-12] MEDS: BUDESONIDE/FORMETEROL FUMARATE 160/4.5 mcg INHALER IH SCH (13:08)
== END 2023-04-12 14:00 | disposition home or self-care (01) | DRG 190 ==
LOC: JER 17:56 → JERBED 20:54 → OBSVTOIN 23:38 → J2W 04-10 01:00
PROVIDERS: ADMIT Internal Medicine; ATTEND Internal Medicine
DX: J44.1 Chronic obstructive pulmonary disease with (acute) exacerbation (principal); J96.21 Acute and chronic respiratory failure with hypoxia; F11.20 Opioid dependence, uncomplicated; J84.9 Interstitial pulmonary disease, unspecified; I50.30 Unspecified diastolic (congestive) heart failure; Z21 Asymptomatic human immunodeficiency virus [HIV] infection status
CPT/HCPCS: 0241U-QW; 36415; 71045-TC-FY; 80053; 81003; 82272; 82803; 83735; 84100; 84484; 85025; 85610; 85730; 87070; 87186; 87205; 93005; 93010; 94640; 97116-GP; 97162-GP; 99285-25; G0378

== ENCOUNTER 2023-04-22 13:28 | Inpatient (IN) | payer OTHER ==
[2023-04-22] MEDS ORDERED: SODIUM CHLORIDE IV ONE (14:24)
[2023-04-22] MEDS ORDERED: SODIUM CHLORIDE 0.9% 500 ML INFUS.BAG IV ONE (15:03)
[2023-04-22 15:29] LABS: VENOUS BASE EXCESS 0.2 mmol/L (-2-2); VENOUS O2 SATURATION 84.6 % (70-80); VENOUS PH 7.426 (7.310-7.410)
[2023-04-22 15:34] LABS: BASO % 0.3 % (0-2.0); HEMATOCRIT 31.9 % (32.4-45.2); HEMOGLOBIN 9.2 GM/dL (10.7-15.3); LYMPH % 9.3 % (8-40); MCH 25.8 pg (25.7-33.7); MCHC 28.9 g/dl (32.0-36.0); MEAN CELL VOLUME 89.3 fl (80-96); MONO % 6.6 % (3.8-10.2); NEUT % 83.8 % (42.8-82.8); PLATELET COUNT 225 10^3/uL (134-434); RBC 3.57 M/mm3 (3.60-5.2); RDW 27.7 % (11.6-15.6); WHITE BLOOD COUNT 13.3 K/mm3 (4.0-10.0)
[2023-04-22 15:36] LABS: INR 1.51 (0.83-1.09); PROTHROMBIN TIME (PATIENT) 17.5 SEC (9.7-13.0)
[2023-04-22 15:39] LABS: ACTIVATED PTT 25.4 SECONDS (25.2-36.5)
[2023-04-22 15:56] LABS: ANISOCYTOSIS 1+; MACROCYTOSIS 0
[2023-04-22] MEDS ORDERED: VANCOMYCIN 1,000 MG in DEXTROSE 5%-WATER - 250 ML IVPB ONE (16:19)
[2023-04-22] MEDS ORDERED: CEFEPIME HCL/D5W 1 GM/50 ML BAG IVPB ONE (16:19)
[2023-04-22 16:20] LABS: POTASSIUM 4.5 mmol/L (3.5-5.1)
[2023-04-22 16:22] LABS: CALCIUM 8.2 mg/dL (8.5-10.1)
[2023-04-22 16:23] LABS: N-TERMINAL BNP 34794.2 pg/ml (5-125)
[2023-04-22 16:23] LABS: ALBUMIN 2.2 g/dl (3.4-5.0); BLOOD UREA NITROGEN 60.5 mg/dL (7-18)
[2023-04-22 16:27] LABS: BILIRUBIN,TOTAL 3.1 mg/dL (0.2-1)
[2023-04-22] MEDS ORDERED: VANCOMYCIN 1 GRAM (PRE-DOCKED) 1,000 MG/250 ML BAG IVPB ONE (16:54)
[2023-04-22] MEDS ORDERED: CEFEPIME 1 GM/100 ML BAG IVPB ONE (16:54)
[2023-04-22] MEDS ORDERED: SULFAMETHOXAZOLE 80 MG/TRIMETHOPRIM 16 MG/ML VIAL IVPB SCH (19:45)
[2023-04-22 20:21] LABS: LACTIC ACID 8.7 mmol/L (0.4-2.0)
[2023-04-22] MEDS ORDERED: HEPARIN NA (PORCINE) 5,000 UNITS/ML 1ML VIAL ONE (22:19)
[2023-04-22] MEDS: HEPARIN NA (PORCINE) 5,000 UNITS/ML 1ML VIAL SQ SCH (22:22)
[2023-04-23] MEDS ORDERED: LORATADINE 10 MG TABLET PO PRN (00:12)
[2023-04-23] MEDS ORDERED: CEFEPIME HCL 2 GM VIAL (RESTRICTED TO ID) IVPB SCH (00:30)
[2023-04-23] MEDS ORDERED: methaDONE HCL 10 MG TABLET PO SCH (06:00)
[2023-04-23] MEDS: HEPARIN NA (PORCINE) 5,000 UNITS/ML 1ML VIAL SQ SCH ×3 (06:43→22:14)
[2023-04-23] MEDS: LEVOTHYROXINE NA 125 MCG TABLET (FP) PO SCH (06:43)
[2023-04-23] MEDS ORDERED: BUDESONIDE 0.5 MG/2 ML INH SUSP VIAL NEB SCH (08:00)
[2023-04-23 08:18] LABS: HEMATOCRIT 32.1 % (32.4-45.2); HEMOGLOBIN 9.1 GM/dL (10.7-15.3); MCH 25.3 pg (25.7-33.7); MCHC 28.3 g/dl (32.0-36.0); MEAN CELL VOLUME 89.4 fl (80-96); MEAN PLT VOLUME 9.6 fl (7.5-11.1); PLATELET COUNT 190 10^3/uL (134-434); RBC 3.59 M/mm3 (3.60-5.2); RDW 27.8 % (11.6-15.6); WHITE BLOOD COUNT 14.4 K/mm3 (4.0-10.0)
[2023-04-23] MEDS: SODIUM CHLORIDE 1,000 ML IV SCH ×2 (08:20→18:45)
[2023-04-23] MEDS ORDERED: SODIUM CHLORIDE 250 ML IV STA (08:21)
[2023-04-23 08:36] LABS: POTASSIUM 4.7 mmol/L (3.5-5.1)
[2023-04-23 08:43] LABS: CALCIUM 7.4 mg/dL (8.5-10.1)
[2023-04-23 08:44] LABS: ALBUMIN 2.2 g/dl (3.4-5.0); BLOOD UREA NITROGEN 66.9 mg/dL (7-18)
[2023-04-23 08:46] LABS: CREATININE 3.1 mg/dL (0.55-1.3)
[2023-04-23 08:47] LABS: BILIRUBIN,TOTAL 3.2 mg/dL (0.2-1); TOT PROT 5.7 g/dl (6.4-8.2)
[2023-04-23 09:12] LABS: LACTIC ACID 3.8 mmol/L (0.4-2.0)
[2023-04-23] MEDS: ALBUTEROL SO4 2.5/IPRATROPIUM 0.5 INH SOL 3 ML VIAL.NEB. NEB SCH ×4 (09:15→20:39)
[2023-04-23] MEDS: BUDESONIDE 0.5 MG/2 ML INH SUSP VIAL NEB SCH ×2 (09:15→20:40)
[2023-04-23 09:16] LABS: ERYTHROCYTE SEDIMENTATION RATE 16 mm/hr (0-30)
[2023-04-23] MEDS ORDERED: FUROSEMIDE 40 MG TABLET (FP) PO SCH (10:00)
[2023-04-23] MEDS ORDERED: BUDESONIDE/FORMETEROL FUMARATE 160/4.5 mcg INHALER IH SCH (10:00)
[2023-04-23] MEDS ORDERED: amLODIPine BESYLATE 5 MG TABLET (FP) PO SCH (10:00)
[2023-04-23] MEDS ORDERED: POTASSIUM CHLORIDE TABS 20 MEQ TABLET.ER (FP) PO SCH (10:00)
[2023-04-23] MEDS: ACETYLCYSTEINE 20% 200MG/ML 30 ML VIAL *FOR ORAL / INH USE ONLY NEB SCH ×4 (10:30→20:40)
[2023-04-23] MEDS: METOPROLOL TARTRATE 25 MG TABLET (FP) PO SCH ×2 (10:30→22:14)
[2023-04-23] MEDS: AMINO ACIDS/PROTEIN HYDROLYS 30 ML LIQUID.PKT PO SCH ×2 (10:54→17:03)
[2023-04-23 11:33] LABS: ANISOCYTOSIS 0; MACROCYTOSIS 0; OVALOCYTE 1+
[2023-04-23] MEDS: CHOLECALCIFEROL (VIT D3) 1,000 UNIT (25 MCG) TABLET PO SCH (11:38)
[2023-04-23] MEDS: PANTOPRAZOLE 40 MG TABLET PO SCH (11:38)
[2023-04-23] MEDS: FOLIC ACID 1 MG TABLET (FP) PO SCH (11:38)
[2023-04-23] MEDS: MULTIVITAMINS (DAILY MVI) TABLET (FP) PO SCH (11:38)
[2023-04-23] MEDS: ZINC SULFATE 220 MG CAPSULE (FP) PO SCH (11:38)
[2023-04-23] MEDS: ABACAVIR/DOLUTEGRAVIR/LAMIVUDI (TRIUMEQ) TABLET PO SCH (11:39)
[2023-04-23] MEDS: NYSTATIN 100,000 UNIT/GM TOPICAL CREAM 15 GM TUBE TP SCH ×2 (11:41→22:18)
[2023-04-23] MEDS ORDERED: methaDONE HCL 10 MG TABLET PO ONE (11:56)
[2023-04-23] MEDS ORDERED: methaDONE 40 MG, methaDONE 20 MG PO ONE (12:00)
[2023-04-23 12:17] LABS: BILIRUBIN,DIRECT 2.5 mg/dL (0.0-0.2)
[2023-04-23] MEDS ORDERED: VANCOMYCIN/WATER FOR INJ (PEG) 1,000 MG/200 ML BAG IVPB ONE (13:00)
[2023-04-23 15:05] LABS: EPI CELLS >36 /uL (0-25.1); HYALINE CASTS 6 /uL (0-3.1); URINE APPEARANCE CLOUDY; URINE BACTERIA 115 /uL (0-1359); URINE BILIRUBIN 1+ (NEGATIVE); URINE COLOR DK YELLOW; URINE GLUCOSE (UA) NEGATIVE (NEGATIVE); URINE KETONE TRACE (NEGATIVE); URINE LEUK ESTERASE TRACE (NEGATIVE); URINE NITRITE NEGATIVE (NEGATIVE); URINE PROTEIN 1+ (NEGATIVE); URINE RBC 25 /uL (0-23.9); URINE WBC 52 /uL (0-25.8)
[2023-04-23 15:08] LABS: YEAST NEGATIVE (NEGATIVE)
[2023-04-23] MEDS ORDERED: CEFEPIME 2 GM in DEXTROSE 5%-WATER 100 ML IVPB SCH (17:00)
[2023-04-23] MEDS ORDERED: ATORVASTATIN CA 10 MG TABLET (FP) PO SCH (22:00)
[2023-04-23] MEDS: ZOLPIDEM TARTRATE 5 MG TABLET PO SCH (22:14)
[2023-04-24] MEDS: LEVOTHYROXINE NA 125 MCG TABLET (FP) PO SCH (06:44)
[2023-04-24] MEDS: HEPARIN NA (PORCINE) 5,000 UNITS/ML 1ML VIAL SQ SCH ×3 (06:45→22:01)
[2023-04-24] MEDS: SODIUM CHLORIDE 1,000 ML IV SCH (08:04)
[2023-04-24 08:15] LABS: HEMATOCRIT 31.5 % (32.4-45.2); MCH 25.7 pg (25.7-33.7); MCHC 28.6 g/dl (32.0-36.0); MEAN PLT VOLUME 9.1 fl (7.5-11.1); PLATELET COUNT 145 10^3/uL (134-434); RDW 28.7 % (11.6-15.6)
[2023-04-24 08:26] LABS: POTASSIUM 4.1 mmol/L (3.5-5.1)
[2023-04-24] MEDS: BUDESONIDE 0.5 MG/2 ML INH SUSP VIAL NEB SCH ×2 (08:29→20:54)
[2023-04-24 08:41] LABS: ALBUMIN 2.2 g/dl (3.4-5.0)
[2023-04-24 08:42] LABS: BLOOD UREA NITROGEN 68.3 mg/dL (7-18)
[2023-04-24 08:43] LABS: CALCIUM 7.5 mg/dL (8.5-10.1)
[2023-04-24 08:44] LABS: PHOSPHOROUS 5.8 mg/dL (2.5-4.9)
[2023-04-24 08:45] LABS: CREATININE 2.5 mg/dL (0.55-1.3)
[2023-04-24 08:46] LABS: BILIRUBIN,TOTAL 3.4 mg/dL (0.2-1); TOT PROT 5.6 g/dl (6.4-8.2)
[2023-04-24] MEDS: CEFEPIME 2 GM in DEXTROSE 5%-WATER 100 ML IVPB SCH (08:56)
[2023-04-24] MEDS: AMINO ACIDS/PROTEIN HYDROLYS 30 ML LIQUID.PKT PO SCH ×2 (08:56→18:34)
[2023-04-24] MEDS: ALBUTEROL SO4 0.083% IH SOL 2.5 MG/3 ML VIAL.NEB. NEB SCH ×4 (09:30→20:54)
[2023-04-24] MEDS: ACETYLCYSTEINE 20% 200MG/ML 4 ML VIAL *FOR ORAL / INH USE ONLY NEB SCH ×4 (09:30→20:54)
[2023-04-24] MEDS: CHOLECALCIFEROL (VIT D3) 1,000 UNIT (25 MCG) TABLET PO SCH (10:48)
[2023-04-24] MEDS: MULTIVITAMINS (DAILY MVI) TABLET (FP) PO SCH (10:48)
[2023-04-24] MEDS: PANTOPRAZOLE 40 MG TABLET PO SCH (10:48)
[2023-04-24] MEDS: ZINC SULFATE 220 MG CAPSULE (FP) PO SCH (10:48)
[2023-04-24] MEDS: ABACAVIR/DOLUTEGRAVIR/LAMIVUDI (TRIUMEQ) TABLET PO SCH (10:48)
[2023-04-24] MEDS: NYSTATIN 100,000 UNIT/GM TOPICAL CREAM 15 GM TUBE TP SCH ×2 (10:52→22:03)
[2023-04-24] MEDS: METOPROLOL TARTRATE 25 MG TABLET (FP) PO SCH ×2 (10:52→21:58)
[2023-04-24] MEDS: FOLIC ACID 1 MG TABLET (FP) PO SCH (11:10)
[2023-04-24 14:05] LABS: LACTIC ACID 2.2 mmol/L (0.4-2.0)
[2023-04-24] MEDS ORDERED: methaDONE HCL 10 MG TABLET PO SCH (14:11)
[2023-04-24] MEDS ORDERED: methaDONE 40 MG, methaDONE 10 MG PO ONE (15:30)
[2023-04-24 21:22] VITALS: BMI 30.4
[2023-04-25] MEDS: ZOLPIDEM TARTRATE 5 MG TABLET PO SCH ×2 (01:39→22:06)
[2023-04-25] MEDS: methaDONE 40 MG, methaDONE 10 MG PO SCH (06:49)
[2023-04-25] MEDS: LEVOTHYROXINE NA 125 MCG TABLET (FP) PO SCH (06:50)
[2023-04-25] MEDS: HEPARIN NA (PORCINE) 5,000 UNITS/ML 1ML VIAL SQ SCH ×3 (06:50→22:06)
[2023-04-25] MEDS: ACETYLCYSTEINE 20% 200MG/ML 4 ML VIAL *FOR ORAL / INH USE ONLY NEB SCH ×4 (08:00→20:38)
[2023-04-25] MEDS: ALBUTEROL SO4 0.083% IH SOL 2.5 MG/3 ML VIAL.NEB. NEB SCH ×4 (08:00→20:38)
[2023-04-25 08:03] LABS: ALBUMIN 2.1 g/dl (3.4-5.0); CALCIUM 7.9 mg/dL (8.5-10.1)
[2023-04-25 08:04] LABS: BLOOD UREA NITROGEN 79.5 mg/dL (7-18); MAGNESIUM 2.2 mg/dL (1.8-2.4)
[2023-04-25 08:07] LABS: CREATININE 2.6 mg/dL (0.55-1.3); PHOSPHOROUS 6.2 mg/dL (2.5-4.9)
[2023-04-25 08:08] LABS: BILIRUBIN,TOTAL 4.1 mg/dL (0.2-1); TOT PROT 5.7 g/dl (6.4-8.2)
[2023-04-25 08:15] LABS: BASO % 0.3 % (0-2.0); HEMATOCRIT 29.8 % (32.4-45.2); HEMOGLOBIN 8.4 GM/dL (10.7-15.3); LYMPH % 8.3 % (8-40); MCH 25.7 pg (25.7-33.7); MCHC 28.2 g/dl (32.0-36.0); MEAN CELL VOLUME 91.4 fl (80-96); MEAN PLT VOLUME 9.8 fl (7.5-11.1); MONO % 4.2 % (3.8-10.2); NEUT % 87.2 % (42.8-82.8); PLATELET COUNT 119 10^3/uL (134-434); RBC 3.26 M/mm3 (3.60-5.2); RDW 28.3 % (11.6-15.6); WHITE BLOOD COUNT 19.6 K/mm3 (4.0-10.0)
[2023-04-25] MEDS ORDERED: POTASSIUM CHLORIDE 10 MEQ in DEXTROSE 5%-NORMAL SALINE 1,000 ML IVPB SCH (09:00)
[2023-04-25] MEDS: ABACAVIR/DOLUTEGRAVIR/LAMIVUDI (TRIUMEQ) TABLET PO SCH (10:52)
[2023-04-25] MEDS: CHOLECALCIFEROL (VIT D3) 1,000 UNIT (25 MCG) TABLET PO SCH (10:52)
[2023-04-25] MEDS: ZINC SULFATE 220 MG CAPSULE (FP) PO SCH (10:53)
[2023-04-25] MEDS: PANTOPRAZOLE 40 MG TABLET PO SCH (10:53)
[2023-04-25] MEDS: FOLIC ACID 1 MG TABLET (FP) PO SCH (10:53)
[2023-04-25] MEDS: CEFEPIME 2 GM in DEXTROSE 5%-WATER 100 ML IVPB SCH (10:53)
[2023-04-25] MEDS: METOPROLOL TARTRATE 25 MG TABLET (FP) PO SCH ×3 (10:54→22:10)
[2023-04-25] MEDS: MULTIVITAMINS (DAILY MVI) TABLET (FP) PO SCH (10:58)
[2023-04-25] MEDS: NYSTATIN 100,000 UNIT/GM TOPICAL CREAM 15 GM TUBE TP SCH ×2 (10:58→23:30)
[2023-04-25] MEDS: AMINO ACIDS/PROTEIN HYDROLYS 30 ML LIQUID.PKT PO SCH ×2 (10:58→18:00)
[2023-04-25] MEDS: BUDESONIDE 0.5 MG/2 ML INH SUSP VIAL NEB SCH ×2 (13:24→20:37)
[2023-04-25] MEDS: COLLAGENASE CLOSTRIDIUM HIST. 30 GRAMS TUBE TP SCH (15:17)
[2023-04-26] MEDS: HEPARIN NA (PORCINE) 5,000 UNITS/ML 1ML VIAL SQ SCH ×3 (07:14→22:55)
[2023-04-26] MEDS: LEVOTHYROXINE NA 125 MCG TABLET (FP) PO SCH (07:14)
[2023-04-26 07:41] LABS: BASO % 0.2 % (0-2.0); HEMATOCRIT 29.6 % (32.4-45.2); HEMOGLOBIN 8.4 GM/dL (10.7-15.3); LYMPH % 9.3 % (8-40); MCH 26.1 pg (25.7-33.7); MCHC 28.5 g/dl (32.0-36.0); MEAN CELL VOLUME 91.5 fl (80-96); MEAN PLT VOLUME 10.5 fl (7.5-11.1); MONO % 5.8 % (3.8-10.2); NEUT % 84.7 % (42.8-82.8); PLATELET COUNT 112 10^3/uL (134-434); RBC 3.24 M/mm3 (3.60-5.2); RDW 28.4 % (11.6-15.6); WHITE BLOOD COUNT 12.9 K/mm3 (4.0-10.0)
[2023-04-26 07:59] LABS: POTASSIUM 3.8 mmol/L (3.5-5.1)
[2023-04-26 08:04] LABS: BLOOD UREA NITROGEN 72.8 mg/dL (7-18); CALCIUM 8.4 mg/dL (8.5-10.1)
[2023-04-26 08:05] LABS: ALBUMIN 2.1 g/dl (3.4-5.0); MAGNESIUM 2.2 mg/dL (1.8-2.4)
[2023-04-26 08:08] LABS: CREATININE 1.9 mg/dL (0.55-1.3)
[2023-04-26 08:09] LABS: BILIRUBIN,TOTAL 3.1 mg/dL (0.2-1); TOT PROT 5.8 g/dl (6.4-8.2)
[2023-04-26] MEDS: AMINO ACIDS/PROTEIN HYDROLYS 30 ML LIQUID.PKT PO SCH ×2 (08:27→17:11)
[2023-04-26] MEDS: ALBUTEROL SO4 0.083% IH SOL 2.5 MG/3 ML VIAL.NEB. NEB SCH ×4 (08:50→20:45)
[2023-04-26] MEDS: BUDESONIDE 0.5 MG/2 ML INH SUSP VIAL NEB SCH ×2 (08:50→20:45)
[2023-04-26] MEDS: ACETYLCYSTEINE 20% 200MG/ML 4 ML VIAL *FOR ORAL / INH USE ONLY NEB SCH ×4 (08:50→20:45)
[2023-04-26 09:10] LABS: ANISOCYTOSIS 1+; MACROCYTOSIS 1+
[2023-04-26] MEDS: FOLIC ACID 1 MG TABLET (FP) PO SCH (10:27)
[2023-04-26] MEDS: ZINC SULFATE 220 MG CAPSULE (FP) PO SCH (10:27)
[2023-04-26] MEDS: MULTIVITAMINS (DAILY MVI) TABLET (FP) PO SCH (10:28)
[2023-04-26] MEDS: PANTOPRAZOLE 40 MG TABLET PO SCH (10:28)
[2023-04-26] MEDS: METOPROLOL TARTRATE 25 MG TABLET (FP) PO SCH ×2 (10:28→22:50)
[2023-04-26] MEDS: CHOLECALCIFEROL (VIT D3) 1,000 UNIT (25 MCG) TABLET PO SCH (10:29)
[2023-04-26] MEDS: ABACAVIR/DOLUTEGRAVIR/LAMIVUDI (TRIUMEQ) TABLET PO SCH (10:30)
[2023-04-26] MEDS: NYSTATIN 100,000 UNIT/GM TOPICAL CREAM 15 GM TUBE TP SCH ×2 (10:49→22:56)
[2023-04-26] MEDS: COLLAGENASE CLOSTRIDIUM HIST. 30 GRAMS TUBE TP SCH (11:48)
[2023-04-26] MEDS: CEFEPIME 2 GM in DEXTROSE 5%-WATER 100 ML IVPB SCH (12:08)
[2023-04-26] MEDS ORDERED: methaDONE HCL 10 MG TABLET PO ONE (13:49)
[2023-04-26] MEDS ORDERED: methaDONE 40 MG, methaDONE 10 MG PO ONE (14:15)
[2023-04-26] MEDS ORDERED: methaDONE 40 MG, methaDONE 10 MG PO SCH (14:15)
[2023-04-26] MEDS: methaDONE 40 MG, methaDONE 10 MG PO SCH (17:13)
[2023-04-26] MEDS ORDERED: VANCOMYCIN/WATER FOR INJ (PEG) 1,000 MG/200 ML BAG IVPB ONE (19:45)
[2023-04-26] MEDS: ZOLPIDEM TARTRATE 5 MG TABLET PO SCH (22:55)
[2023-04-27] MEDS ORDERED: methaDONE HCL 10 MG TABLET PO SCH (06:00)
[2023-04-27] MEDS ORDERED: methaDONE 40 MG, methaDONE 10 MG PO SCH (06:00)
[2023-04-27] MEDS: LEVOTHYROXINE NA 125 MCG TABLET (FP) PO SCH (06:27)
[2023-04-27] MEDS: HEPARIN NA (PORCINE) 5,000 UNITS/ML 1ML VIAL SQ SCH ×3 (06:28→21:37)
[2023-04-27 08:26] LABS: BASO % 0.6 % (0-2.0); EOS % 0.1 % (0-4.5); HEMATOCRIT 30.1 % (32.4-45.2); HEMOGLOBIN 8.7 GM/dL (10.7-15.3); LYMPH % 13.6 % (8-40); MCH 26.4 pg (25.7-33.7); MEAN PLT VOLUME 8.9 fl (7.5-11.1); NEUT % 75.7 % (42.8-82.8); PLATELET COUNT 81 10^3/uL (134-434); RBC 3.31 M/mm3 (3.60-5.2); RDW 27.7 % (11.6-15.6); WHITE BLOOD COUNT 9.5 K/mm3 (4.0-10.0)
[2023-04-27] MEDS: ALBUTEROL SO4 0.083% IH SOL 2.5 MG/3 ML VIAL.NEB. NEB SCH ×4 (08:33→20:20)
[2023-04-27] MEDS: BUDESONIDE 0.5 MG/2 ML INH SUSP VIAL NEB SCH ×2 (08:33→20:20)
[2023-04-27] MEDS: ACETYLCYSTEINE 20% 200MG/ML 4 ML VIAL *FOR ORAL / INH USE ONLY NEB SCH ×4 (08:33→20:20)
[2023-04-27] MEDS: CEFEPIME 2 GM in DEXTROSE 5%-WATER 100 ML IVPB SCH (08:35)
[2023-04-27] MEDS: AMINO ACIDS/PROTEIN HYDROLYS 30 ML LIQUID.PKT PO SCH ×2 (08:36→18:00)
[2023-04-27 08:40] LABS: POTASSIUM 3.6 mmol/L (3.5-5.1)
[2023-04-27 08:43] LABS: ALBUMIN 2.1 g/dl (3.4-5.0); MAGNESIUM 2.3 mg/dL (1.8-2.4)
[2023-04-27 08:44] LABS: BLOOD UREA NITROGEN 66.6 mg/dL (7-18)
[2023-04-27 08:47] LABS: BILIRUBIN,TOTAL 2.5 mg/dL (0.2-1); CREATININE 1.5 mg/dL (0.55-1.3)
[2023-04-27 08:51] LABS: TOT PROT 5.8 g/dl (6.4-8.2)
[2023-04-27] MEDS: ABACAVIR/DOLUTEGRAVIR/LAMIVUDI (TRIUMEQ) TABLET PO SCH (10:43)
[2023-04-27] MEDS: MULTIVITAMINS (DAILY MVI) TABLET (FP) PO SCH (10:43)
[2023-04-27] MEDS: PANTOPRAZOLE 40 MG TABLET PO SCH (10:44)
[2023-04-27] MEDS: METOPROLOL TARTRATE 25 MG TABLET (FP) PO SCH ×2 (10:44→21:43)
[2023-04-27] MEDS: FOLIC ACID 1 MG TABLET (FP) PO SCH (10:44)
[2023-04-27] MEDS: CHOLECALCIFEROL (VIT D3) 1,000 UNIT (25 MCG) TABLET PO SCH (10:44)
[2023-04-27] MEDS: NYSTATIN 100,000 UNIT/GM TOPICAL CREAM 15 GM TUBE TP SCH ×2 (10:45→21:54)
[2023-04-27] MEDS: COLLAGENASE CLOSTRIDIUM HIST. 30 GRAMS TUBE TP SCH (10:45)
[2023-04-27] MEDS: ZINC SULFATE 220 MG CAPSULE (FP) PO SCH (10:45)
[2023-04-27] MEDS ORDERED: ACETYLCYSTEINE 20% 200MG/ML 4 ML VIAL *FOR ORAL / INH USE ONLY ONE (12:01)
[2023-04-27] MEDS: ZOLPIDEM TARTRATE 5 MG TABLET PO SCH (21:37)
[2023-04-28] MEDS: methaDONE HCL 40 MG DISPERSABLE TABLET PO SCH (05:57)
[2023-04-28] MEDS: HEPARIN NA (PORCINE) 5,000 UNITS/ML 1ML VIAL SQ SCH ×3 (05:57→21:37)
[2023-04-28] MEDS: LEVOTHYROXINE NA 125 MCG TABLET (FP) PO SCH (06:03)
[2023-04-28] MEDS: BUDESONIDE 0.5 MG/2 ML INH SUSP VIAL NEB SCH ×2 (08:08→19:51)
[2023-04-28] MEDS: ACETYLCYSTEINE 20% 200MG/ML 4 ML VIAL *FOR ORAL / INH USE ONLY NEB SCH ×4 (08:08→19:52)
[2023-04-28] MEDS: ALBUTEROL SO4 0.083% IH SOL 2.5 MG/3 ML VIAL.NEB. NEB SCH ×4 (08:08→19:52)
[2023-04-28 08:12] LABS: ALBUMIN 2.1 g/dl (3.4-5.0); CALCIUM 8.2 mg/dL (8.5-10.1)
[2023-04-28 08:14] LABS: BLOOD UREA NITROGEN 67.7 mg/dL (7-18); MAGNESIUM 2.1 mg/dL (1.8-2.4)
[2023-04-28 08:17] LABS: CREATININE 1.5 mg/dL (0.55-1.3); PHOSPHOROUS 3.3 mg/dL (2.5-4.9); TOT PROT 6.2 g/dl (6.4-8.2)
[2023-04-28 08:19] LABS: BILIRUBIN,TOTAL 2.2 mg/dL (0.2-1)
[2023-04-28 08:59] LABS: BASO % 0.5 % (0-2.0); EOS % 0.1 % (0-4.5); HEMATOCRIT 31.1 % (32.4-45.2); HEMOGLOBIN 8.9 GM/dL (10.7-15.3); LYMPH % 14.1 % (8-40); MCH 26.1 pg (25.7-33.7); MCHC 28.4 g/dl (32.0-36.0); MEAN CELL VOLUME 91.6 fl (80-96); MEAN PLT VOLUME 9.1 fl (7.5-11.1); MONO % 7.3 % (3.8-10.2); PLATELET COUNT 82 10^3/uL (134-434); RDW 27.7 % (11.6-15.6); WHITE BLOOD COUNT 11.8 K/mm3 (4.0-10.0)
[2023-04-28] MEDS: ABACAVIR/DOLUTEGRAVIR/LAMIVUDI (TRIUMEQ) TABLET PO SCH (10:55)
[2023-04-28] MEDS: AMINO ACIDS/PROTEIN HYDROLYS 30 ML LIQUID.PKT PO SCH ×2 (10:55→17:18)
[2023-04-28] MEDS: CEFEPIME 2 GM in DEXTROSE 5%-WATER 100 ML IVPB SCH (10:55)
[2023-04-28] MEDS: FOLIC ACID 1 MG TABLET (FP) PO SCH (10:55)
[2023-04-28] MEDS: CHOLECALCIFEROL (VIT D3) 1,000 UNIT (25 MCG) TABLET PO SCH (10:55)
[2023-04-28] MEDS: ZINC SULFATE 220 MG CAPSULE (FP) PO SCH (10:55)
[2023-04-28] MEDS: PANTOPRAZOLE 40 MG TABLET PO SCH (10:55)
[2023-04-28] MEDS: NYSTATIN 100,000 UNIT/GM TOPICAL CREAM 15 GM TUBE TP SCH ×2 (10:56→21:45)
[2023-04-28] MEDS: MULTIVITAMINS (DAILY MVI) TABLET (FP) PO SCH (10:56)
[2023-04-28] MEDS: METOPROLOL TARTRATE 25 MG TABLET (FP) PO SCH ×2 (10:56→21:37)
[2023-04-28] MEDS: COLLAGENASE CLOSTRIDIUM HIST. 30 GRAMS TUBE TP SCH (10:56)
[2023-04-28] MEDS ORDERED: VANCOMYCIN/WATER FOR INJ (PEG) 1,000 MG/200 ML BAG IVPB ONE (16:45)
[2023-04-28] MEDS: ZOLPIDEM TARTRATE 5 MG TABLET PO SCH (21:40)
[2023-04-29] MEDS: HEPARIN NA (PORCINE) 5,000 UNITS/ML 1ML VIAL SQ SCH ×3 (05:29→23:53)
[2023-04-29] MEDS: methaDONE HCL 40 MG DISPERSABLE TABLET PO SCH (05:29)
[2023-04-29] MEDS: LEVOTHYROXINE NA 125 MCG TABLET (FP) PO SCH (06:01)
[2023-04-29] MEDS ORDERED: LORATADINE 10 MG TABLET PO PRN (07:37)
[2023-04-29] MEDS ORDERED: methaDONE HCL 10 MG TABLET PO ONE (07:37)
[2023-04-29 08:57] LABS: BASO % 0.5 % (0-2.0); EOS % 0.4 % (0-4.5); HEMOGLOBIN 8.4 GM/dL (10.7-15.3); LYMPH % 11.5 % (8-40); MCHC 28.1 g/dl (32.0-36.0); MEAN CELL VOLUME 92.6 fl (80-96); MEAN PLT VOLUME 8.9 fl (7.5-11.1); MONO % 8.6 % (3.8-10.2); PLATELET COUNT 109 10^3/uL (134-434); RBC 3.24 M/mm3 (3.60-5.2); RDW 27.9 % (11.6-15.6); WHITE BLOOD COUNT 9.3 K/mm3 (4.0-10.0)
[2023-04-29 09:23] LABS: POTASSIUM 3.9 mmol/L (3.5-5.1)
[2023-04-29] MEDS: CEFEPIME 2 GM in DEXTROSE 5%-WATER 100 ML IVPB SCH (09:26)
[2023-04-29] MEDS: PANTOPRAZOLE 40 MG TABLET PO SCH (09:27)
[2023-04-29] MEDS: FOLIC ACID 1 MG TABLET (FP) PO SCH (09:27)
[2023-04-29] MEDS: ABACAVIR/DOLUTEGRAVIR/LAMIVUDI (TRIUMEQ) TABLET PO SCH (09:27)
[2023-04-29] MEDS: MULTIVITAMINS (DAILY MVI) TABLET (FP) PO SCH (09:28)
[2023-04-29] MEDS: AMINO ACIDS/PROTEIN HYDROLYS 30 ML LIQUID.PKT PO SCH ×2 (09:28→18:18)
[2023-04-29] MEDS: CHOLECALCIFEROL (VIT D3) 1,000 UNIT (25 MCG) TABLET PO SCH (09:28)
[2023-04-29] MEDS: METOPROLOL TARTRATE 25 MG TABLET (FP) PO SCH ×2 (09:28→23:53)
[2023-04-29 09:35] LABS: PHOSPHOROUS 2.9 mg/dL (2.5-4.9)
[2023-04-29 09:36] LABS: ALBUMIN 1.9 g/dl (3.4-5.0); BILIRUBIN,TOTAL 1.8 mg/dL (0.2-1); BLOOD UREA NITROGEN 62.9 mg/dL (7-18); CREATININE 1.3 mg/dL (0.55-1.3)
[2023-04-29] MEDS: ACETYLCYSTEINE 20% 200MG/ML 4 ML VIAL *FOR ORAL / INH USE ONLY NEB SCH ×4 (09:37→20:28)
[2023-04-29] MEDS: BUDESONIDE 0.5 MG/2 ML INH SUSP VIAL NEB SCH ×2 (09:38→20:28)
[2023-04-29] MEDS: ALBUTEROL SO4 0.083% IH SOL 2.5 MG/3 ML VIAL.NEB. NEB SCH ×4 (09:38→20:28)
[2023-04-29 09:39] LABS: CALCIUM 8.3 mg/dL (8.5-10.1); MAGNESIUM 2.1 mg/dL (1.8-2.4)
[2023-04-29] MEDS: ZINC SULFATE 220 MG CAPSULE (FP) PO SCH (10:13)
[2023-04-29 10:26] LABS: ANISOCYTOSIS 1+; MACROCYTOSIS 0
[2023-04-29] MEDS ORDERED: FUROSEMIDE 40 MG TABLET (FP) PO ONE (12:30)
[2023-04-29] MEDS: COLLAGENASE CLOSTRIDIUM HIST. 30 GRAMS TUBE TP SCH (13:00)
[2023-04-29] MEDS: NYSTATIN 100,000 UNIT/GM TOPICAL CREAM 15 GM TUBE TP SCH ×2 (13:00→23:54)
[2023-04-29 16:12] LABS: N-TERMINAL BNP 27681.4 pg/ml (5-125)
[2023-04-29 17:46] LABS: VENOUS O2 SATURATION 98.9 % (70-80); VENOUS PCO2 30.8 mmHg (38-52); VENOUS PH 7.575 (7.310-7.410)
[2023-04-29] MEDS ORDERED: ZOLPIDEM TARTRATE 5 MG TABLET PO PRN (22:00)
[2023-04-30] MEDS ORDERED: ACETAMINOPHEN 325 MG TABLET (FP) PO ONE (03:49)
[2023-04-30] MEDS ORDERED: ACETAMINOPHEN 325 MG TABLET (FP) ONE (04:15)
[2023-04-30] MEDS: HEPARIN NA (PORCINE) 5,000 UNITS/ML 1ML VIAL SQ SCH ×3 (05:59→22:15)
[2023-04-30] MEDS: LEVOTHYROXINE NA 125 MCG TABLET (FP) PO SCH (05:59)
[2023-04-30] MEDS: methaDONE HCL 40 MG DISPERSABLE TABLET PO SCH (05:59)
[2023-04-30] MEDS: BUDESONIDE 0.5 MG/2 ML INH SUSP VIAL NEB SCH ×2 (07:15→20:12)
[2023-04-30] MEDS: ALBUTEROL SO4 0.083% IH SOL 2.5 MG/3 ML VIAL.NEB. NEB SCH ×4 (07:15→20:12)
[2023-04-30] MEDS: ACETYLCYSTEINE 20% 200MG/ML 4 ML VIAL *FOR ORAL / INH USE ONLY NEB SCH ×4 (07:15→20:11)
[2023-04-30] MEDS ORDERED: methaDONE HCL 40 MG DISPERSABLE TABLET PO SCH (08:55)
[2023-04-30] MEDS ORDERED: methaDONE HCL 10 MG TABLET PO ONE (10:00)
[2023-04-30] MEDS: CEFEPIME 2 GM in DEXTROSE 5%-WATER 100 ML IVPB SCH ×2 (10:00→22:15)
[2023-04-30] MEDS ORDERED: FUROSEMIDE 40 MG/4 ML INJECTABLE VIAL IVPUSH SCH (10:00)
[2023-04-30] MEDS: ZINC SULFATE 220 MG CAPSULE (FP) PO SCH (10:01)
[2023-04-30] MEDS: AMINO ACIDS/PROTEIN HYDROLYS 30 ML LIQUID.PKT PO SCH ×2 (10:01→17:14)
[2023-04-30] MEDS: ABACAVIR/DOLUTEGRAVIR/LAMIVUDI (TRIUMEQ) TABLET PO SCH (10:01)
[2023-04-30] MEDS: MULTIVITAMINS (DAILY MVI) TABLET (FP) PO SCH (10:01)
[2023-04-30] MEDS: PANTOPRAZOLE 40 MG TABLET PO SCH (10:02)
[2023-04-30] MEDS: METOPROLOL TARTRATE 25 MG TABLET (FP) PO SCH ×2 (10:02→22:15)
[2023-04-30] MEDS: FOLIC ACID 1 MG TABLET (FP) PO SCH (10:02)
[2023-04-30] MEDS: CHOLECALCIFEROL (VIT D3) 1,000 UNIT (25 MCG) TABLET PO SCH (10:02)
[2023-04-30] MEDS: COLLAGENASE CLOSTRIDIUM HIST. 30 GRAMS TUBE TP SCH (15:06)
[2023-04-30] MEDS: NYSTATIN 100,000 UNIT/GM TOPICAL CREAM 15 GM TUBE TP SCH ×2 (15:07→22:17)
[2023-05-01] MEDS ORDERED: methaDONE 40 MG, methaDONE 20 MG PO SCH (06:00)
[2023-05-01] MEDS: HEPARIN NA (PORCINE) 5,000 UNITS/ML 1ML VIAL SQ SCH ×3 (06:01→21:44)
[2023-05-01] MEDS: LEVOTHYROXINE NA 125 MCG TABLET (FP) PO SCH (06:01)
[2023-05-01] MEDS: methaDONE HCL 40 MG DISPERSABLE TABLET PO SCH (06:01)
[2023-05-01] MEDS: ACETYLCYSTEINE 20% 200MG/ML 4 ML VIAL *FOR ORAL / INH USE ONLY NEB SCH ×4 (07:45→20:41)
[2023-05-01] MEDS: BUDESONIDE 0.5 MG/2 ML INH SUSP VIAL NEB SCH ×2 (07:45→20:41)
[2023-05-01] MEDS: ALBUTEROL SO4 0.083% IH SOL 2.5 MG/3 ML VIAL.NEB. NEB SCH ×4 (07:45→20:41)
[2023-05-01] MEDS ORDERED: methaDONE HCL 40 MG DISPERSABLE TABLET PO SCH (08:55)
[2023-05-01] MEDS: CEFEPIME 2 GM in DEXTROSE 5%-WATER 100 ML IVPB SCH ×2 (10:14→21:45)
[2023-05-01] MEDS: FOLIC ACID 1 MG TABLET (FP) PO SCH ×2 (10:15→10:45)
[2023-05-01] MEDS: AMINO ACIDS/PROTEIN HYDROLYS 30 ML LIQUID.PKT PO SCH ×3 (10:15→17:52)
[2023-05-01] MEDS: CHOLECALCIFEROL (VIT D3) 1,000 UNIT (25 MCG) TABLET PO SCH ×2 (10:15→10:49)
[2023-05-01] MEDS: MULTIVITAMINS (DAILY MVI) TABLET (FP) PO SCH ×2 (10:15→10:48)
[2023-05-01] MEDS: FUROSEMIDE 40 MG/4 ML INJECTABLE VIAL IVPUSH SCH ×3 (10:15→13:16)
[2023-05-01] MEDS: PANTOPRAZOLE 40 MG TABLET PO SCH ×2 (10:15→10:49)
[2023-05-01] MEDS: ZINC SULFATE 220 MG CAPSULE (FP) PO SCH ×2 (10:16→10:47)
[2023-05-01] MEDS: ABACAVIR/DOLUTEGRAVIR/LAMIVUDI (TRIUMEQ) TABLET PO SCH ×2 (10:16→10:50)
[2023-05-01] MEDS: METOPROLOL TARTRATE 25 MG TABLET (FP) PO SCH ×3 (10:18→21:45)
[2023-05-01] MEDS: NYSTATIN 100,000 UNIT/GM TOPICAL CREAM 15 GM TUBE TP SCH ×2 (10:46→21:46)
[2023-05-01 10:59] LABS: POTASSIUM 3.9 mmol/L (3.5-5.1)
[2023-05-01 11:01] LABS: CALCIUM 8.3 mg/dL (8.5-10.1)
[2023-05-01 11:02] LABS: ALBUMIN 1.9 g/dl (3.4-5.0); BLOOD UREA NITROGEN 55.4 mg/dL (7-18)
[2023-05-01 11:04] LABS: CREATININE 1.3 mg/dL (0.55-1.3)
[2023-05-01 11:05] LABS: BASO % 0.2 % (0-2.0); BILIRUBIN,TOTAL 1.6 mg/dL (0.2-1); EOS % 0.1 % (0-4.5); HEMATOCRIT 31.9 % (32.4-45.2); HEMOGLOBIN 9.2 GM/dL (10.7-15.3); LYMPH % 13.1 % (8-40); MCH 26.7 pg (25.7-33.7); MCHC 28.9 g/dl (32.0-36.0); MEAN CELL VOLUME 92.5 fl (80-96); MEAN PLT VOLUME 8.4 fl (7.5-11.1); MONO % 9.3 % (3.8-10.2); NEUT % 77.3 % (42.8-82.8); PLATELET COUNT 189 10^3/uL (134-434); RBC 3.45 M/mm3 (3.60-5.2); RDW 28.4 % (11.6-15.6); TOT PROT 6.2 g/dl (6.4-8.2); WHITE BLOOD COUNT 11.4 K/mm3 (4.0-10.0)
[2023-05-01] MEDS: COLLAGENASE CLOSTRIDIUM HIST. 30 GRAMS TUBE TP SCH (11:35)
[2023-05-02] MEDS: HEPARIN NA (PORCINE) 5,000 UNITS/ML 1ML VIAL SQ SCH ×3 (05:13→22:07)
[2023-05-02] MEDS: methaDONE HCL 40 MG DISPERSABLE TABLET PO SCH (05:13)
[2023-05-02] MEDS: LEVOTHYROXINE NA 125 MCG TABLET (FP) PO SCH (06:06)
[2023-05-02] MEDS ORDERED: ACETAMINOPHEN 325 MG TABLET (FP) PO ONE (06:22)
[2023-05-02] MEDS: ACETYLCYSTEINE 20% 200MG/ML 4 ML VIAL *FOR ORAL / INH USE ONLY NEB SCH ×4 (07:45→20:49)
[2023-05-02] MEDS: BUDESONIDE 0.5 MG/2 ML INH SUSP VIAL NEB SCH ×2 (07:45→20:49)
[2023-05-02] MEDS: ALBUTEROL SO4 0.083% IH SOL 2.5 MG/3 ML VIAL.NEB. NEB SCH ×4 (07:45→20:50)
[2023-05-02 10:34] LABS: HEMATOCRIT 33.5 % (32.4-45.2); HEMOGLOBIN 9.6 GM/dL (10.7-15.3); MCH 26.4 pg (25.7-33.7); MCHC 28.6 g/dl (32.0-36.0); MEAN CELL VOLUME 92.1 fl (80-96); MEAN PLT VOLUME 8.4 fl (7.5-11.1); PLATELET COUNT 286 10^3/uL (134-434); RBC 3.64 M/mm3 (3.60-5.2); RDW 27.8 % (11.6-15.6); WHITE BLOOD COUNT 20.9 K/mm3 (4.0-10.0)
[2023-05-02] MEDS: CEFEPIME 2 GM in DEXTROSE 5%-WATER 100 ML IVPB SCH ×2 (10:54→22:07)
[2023-05-02 11:00] LABS: POTASSIUM 3.9 mmol/L (3.5-5.1)
[2023-05-02 11:02] LABS: ALBUMIN 1.9 g/dl (3.4-5.0); BLOOD UREA NITROGEN 57.9 mg/dL (7-18); CALCIUM 8.4 mg/dL (8.5-10.1)
[2023-05-02] MEDS: ACETAMINOPHEN 325 MG TABLET (FP) PO PRN (11:02)
[2023-05-02 11:06] LABS: CREATININE 1.6 mg/dL (0.55-1.3)
[2023-05-02 11:07] LABS: BILIRUBIN,TOTAL 1.9 mg/dL (0.2-1)
[2023-05-02 11:10] LABS: TOT PROT 6.7 g/dl (6.4-8.2)
[2023-05-02 12:09] LABS: ARTERIAL BLD GAS O2 SATURATION 88.8 % (95-98); ARTERIAL BLOOD GAS BASE EXCESS 4.7 mmol/L (-2-2); ARTERIAL BLOOD GAS PO2 52.8 mmHg (80-100); ARTERIAL BLOOD GAS pH 7.453 (7.350-7.450)
[2023-05-02 12:12] LABS: ALLENS TEST POSITIVE
[2023-05-02] MEDS: ABACAVIR/DOLUTEGRAVIR/LAMIVUDI (TRIUMEQ) TABLET PO SCH (13:37)
[2023-05-02] MEDS: ZINC SULFATE 220 MG CAPSULE (FP) PO SCH (13:38)
[2023-05-02] MEDS: FUROSEMIDE 40 MG/4 ML INJECTABLE VIAL IVPUSH SCH (13:38)
[2023-05-02] MEDS: PANTOPRAZOLE 40 MG TABLET PO SCH (13:38)
[2023-05-02] MEDS: METOPROLOL TARTRATE 25 MG TABLET (FP) PO SCH ×2 (13:38→22:07)
[2023-05-02] MEDS: FOLIC ACID 1 MG TABLET (FP) PO SCH (13:38)
[2023-05-02] MEDS: MULTIVITAMINS (DAILY MVI) TABLET (FP) PO SCH (13:38)
[2023-05-02] MEDS: NYSTATIN 100,000 UNIT/GM TOPICAL CREAM 15 GM TUBE TP SCH ×2 (13:39→22:08)
[2023-05-02] MEDS: AMINO ACIDS/PROTEIN HYDROLYS 30 ML LIQUID.PKT PO SCH ×2 (13:39→18:53)
[2023-05-02] MEDS: COLLAGENASE CLOSTRIDIUM HIST. 30 GRAMS TUBE TP SCH (13:41)
[2023-05-02] MEDS: CHOLECALCIFEROL (VIT D3) 1,000 UNIT (25 MCG) TABLET PO SCH (13:42)
[2023-05-02] MEDS ORDERED: VANCOMYCIN/WATER FOR INJ (PEG) 1,000 MG/200 ML BAG IVPB SCH (14:15)
[2023-05-02 23:08] LABS: EPI CELLS 27 /uL (0-25.1); HYALINE CASTS 1 /uL (0-3.1); URINE APPEARANCE CLEAR; URINE BACTERIA 7 /uL (0-1359); URINE BILIRUBIN NEGATIVE (NEGATIVE); URINE COLOR YELLOW; URINE GLUCOSE (UA) NEGATIVE (NEGATIVE); URINE KETONE TRACE (NEGATIVE); URINE LEUK ESTERASE NEGATIVE (NEGATIVE); URINE NITRITE NEGATIVE (NEGATIVE); URINE PROTEIN 2+ (NEGATIVE); URINE UROBILINOGEN 0.2 mg/dL (0.2-1.0); URINE WBC 31 /uL (0-25.8)
[2023-05-02 23:46] LABS: URINE RBC 140.4 /uL (0-23.9)
[2023-05-03] MEDS: methaDONE HCL 40 MG DISPERSABLE TABLET PO SCH (05:30)
[2023-05-03] MEDS: HEPARIN NA (PORCINE) 5,000 UNITS/ML 1ML VIAL SQ SCH ×3 (05:30→23:04)
[2023-05-03] MEDS: LEVOTHYROXINE NA 125 MCG TABLET (FP) PO SCH (06:01)
[2023-05-03] MEDS: ACETYLCYSTEINE 20% 200MG/ML 4 ML VIAL *FOR ORAL / INH USE ONLY NEB SCH ×4 (07:31→20:21)
[2023-05-03] MEDS: BUDESONIDE 0.5 MG/2 ML INH SUSP VIAL NEB SCH ×2 (07:31→20:22)
[2023-05-03] MEDS: ALBUTEROL SO4 0.083% IH SOL 2.5 MG/3 ML VIAL.NEB. NEB SCH ×4 (07:31→20:23)
[2023-05-03 10:08] LABS: POTASSIUM 3.7 mmol/L (3.5-5.1)
[2023-05-03 10:12] LABS: HEMOGLOBIN 9.4 GM/dL (10.7-15.3); MCH 27.1 pg (25.7-33.7); MCHC 29.3 g/dl (32.0-36.0); MEAN CELL VOLUME 92.6 fl (80-96); MEAN PLT VOLUME 8.4 fl (7.5-11.1); PLATELET COUNT 249 10^3/uL (134-434); RBC 3.45 M/mm3 (3.60-5.2); RDW 28.2 % (11.6-15.6); WHITE BLOOD COUNT 23.3 K/mm3 (4.0-10.0)
[2023-05-03 10:17] LABS: ALBUMIN 1.8 g/dl (3.4-5.0); CALCIUM 8.1 mg/dL (8.5-10.1)
[2023-05-03 10:18] LABS: BLOOD UREA NITROGEN 65.9 mg/dL (7-18)
[2023-05-03 10:21] LABS: CREATININE 1.9 mg/dL (0.55-1.3)
[2023-05-03 10:22] LABS: BILIRUBIN,TOTAL 1.5 mg/dL (0.2-1); TOT PROT 6.3 g/dl (6.4-8.2)
[2023-05-03] MEDS: CHOLECALCIFEROL (VIT D3) 1,000 UNIT (25 MCG) TABLET PO SCH (10:24)
[2023-05-03] MEDS: ABACAVIR/DOLUTEGRAVIR/LAMIVUDI (TRIUMEQ) TABLET PO SCH (10:24)
[2023-05-03] MEDS: CEFEPIME 2 GM in DEXTROSE 5%-WATER 100 ML IVPB SCH ×2 (10:24→23:03)
[2023-05-03] MEDS: METOPROLOL TARTRATE 25 MG TABLET (FP) PO SCH (10:24)
[2023-05-03] MEDS: NYSTATIN 100,000 UNIT/GM TOPICAL CREAM 15 GM TUBE TP SCH ×2 (10:24→23:04)
[2023-05-03] MEDS: MULTIVITAMINS (DAILY MVI) TABLET (FP) PO SCH (10:24)
[2023-05-03] MEDS: PANTOPRAZOLE 40 MG TABLET PO SCH (10:24)
[2023-05-03] MEDS: FOLIC ACID 1 MG TABLET (FP) PO SCH (10:24)
[2023-05-03] MEDS: AMINO ACIDS/PROTEIN HYDROLYS 30 ML LIQUID.PKT PO SCH ×2 (10:24→17:00)
[2023-05-03] MEDS: ZINC SULFATE 220 MG CAPSULE (FP) PO SCH (10:24)
[2023-05-03] MEDS: FUROSEMIDE 40 MG/4 ML INJECTABLE VIAL IVPUSH SCH (10:48)
[2023-05-03 10:51] LABS: ANISOCYTOSIS 1+; MACROCYTOSIS 1+
[2023-05-03] MEDS: DEXTROSE 5%-0.45% SALINE 1,000 ML IV SCH (12:56)
[2023-05-03] MEDS: COLLAGENASE CLOSTRIDIUM HIST. 30 GRAMS TUBE TP SCH (13:30)
[2023-05-04] MEDS: methaDONE HCL 40 MG DISPERSABLE TABLET PO SCH (06:25)
[2023-05-04] MEDS: HEPARIN NA (PORCINE) 5,000 UNITS/ML 1ML VIAL SQ SCH ×3 (06:27→22:00)
[2023-05-04] MEDS: LEVOTHYROXINE NA 125 MCG TABLET (FP) PO SCH (06:27)
[2023-05-04] MEDS: BUDESONIDE 0.5 MG/2 ML INH SUSP VIAL NEB SCH ×2 (08:14→21:00)
[2023-05-04] MEDS: ACETYLCYSTEINE 20% 200MG/ML 4 ML VIAL *FOR ORAL / INH USE ONLY NEB SCH ×2 (08:14→11:22)
[2023-05-04] MEDS: ALBUTEROL SO4 0.083% IH SOL 2.5 MG/3 ML VIAL.NEB. NEB SCH ×4 (08:14→21:00)
[2023-05-04] MEDS: AMINO ACIDS/PROTEIN HYDROLYS 30 ML LIQUID.PKT PO SCH ×2 (09:01→17:33)
[2023-05-04 10:21] LABS: HEMATOCRIT 31.4 % (32.4-45.2); HEMOGLOBIN 8.7 GM/dL (10.7-15.3); MCHC 27.8 g/dl (32.0-36.0); MEAN CELL VOLUME 93.6 fl (80-96); MEAN PLT VOLUME 8.7 fl (7.5-11.1); PLATELET COUNT 256 10^3/uL (134-434); RBC 3.35 M/mm3 (3.60-5.2); RDW 27.5 % (11.6-15.6); WHITE BLOOD COUNT 22.4 K/mm3 (4.0-10.0)
[2023-05-04 10:45] LABS: POTASSIUM 3.6 mmol/L (3.5-5.1)
[2023-05-04 10:51] LABS: BLOOD UREA NITROGEN 71.2 mg/dL (7-18); CALCIUM 7.9 mg/dL (8.5-10.1)
[2023-05-04 10:52] LABS: ALBUMIN 1.7 g/dl (3.4-5.0); MAGNESIUM 1.8 mg/dL (1.8-2.4)
[2023-05-04 10:54] LABS: PHOSPHOROUS 2.6 mg/dL (2.5-4.9)
[2023-05-04 10:55] LABS: BILIRUBIN,TOTAL 1.2 mg/dL (0.2-1); CREATININE 2.5 mg/dL (0.55-1.3)
[2023-05-04 11:11] LABS: ANISOCYTOSIS 3+; MACROCYTOSIS 1+
[2023-05-04] MEDS: FOLIC ACID 1 MG TABLET (FP) PO SCH (11:30)
[2023-05-04] MEDS: CEFEPIME 2 GM in DEXTROSE 5%-WATER 100 ML IVPB SCH (11:30)
[2023-05-04] MEDS: CHOLECALCIFEROL (VIT D3) 1,000 UNIT (25 MCG) TABLET PO SCH (11:31)
[2023-05-04] MEDS: MULTIVITAMINS (DAILY MVI) TABLET (FP) PO SCH (11:31)
[2023-05-04] MEDS: PANTOPRAZOLE 40 MG TABLET PO SCH (11:31)
[2023-05-04] MEDS: ZINC SULFATE 220 MG CAPSULE (FP) PO SCH (11:31)
[2023-05-04] MEDS: methylPREDNISolone NA SUCC 40 MG/1 ML VIAL IVPUSH SCH ×2 (11:31→17:33)
[2023-05-04] MEDS: COLLAGENASE CLOSTRIDIUM HIST. 30 GRAMS TUBE TP SCH (11:32)
[2023-05-04] MEDS: NYSTATIN 100,000 UNIT/GM TOPICAL CREAM 15 GM TUBE TP SCH ×2 (11:32→21:59)
[2023-05-04] MEDS: ABACAVIR/DOLUTEGRAVIR/LAMIVUDI (TRIUMEQ) TABLET PO SCH (11:49)
[2023-05-04] MEDS: DEXTROSE 5%-0.45% SALINE 1,000 ML IV SCH ×2 (13:23→13:46)
[2023-05-04] MEDS: PANTOPRAZOLE SODIUM 40 MG VIAL IVPUSH SCH (13:25)
[2023-05-04] MEDS: VANCOMYCIN/WATER FOR INJ (PEG) 1,000 MG/200 ML BAG IVPB SCH ×2 (13:46→15:41)
[2023-05-04] MEDS: ACETAMINOPHEN 325 MG TABLET (FP) PO PRN (15:31)
[2023-05-05] MEDS: methylPREDNISolone NA SUCC 40 MG/1 ML VIAL IVPUSH SCH ×3 (01:33→17:33)
[2023-05-05] MEDS: LEVOTHYROXINE NA 125 MCG TABLET (FP) PO SCH (06:42)
[2023-05-05] MEDS: HEPARIN NA (PORCINE) 5,000 UNITS/ML 1ML VIAL SQ SCH ×3 (06:42→21:46)
[2023-05-05] MEDS: methaDONE HCL 40 MG DISPERSABLE TABLET PO SCH (06:43)
[2023-05-05] MEDS: BUDESONIDE 0.5 MG/2 ML INH SUSP VIAL NEB SCH ×2 (07:45→20:52)
[2023-05-05] MEDS: ALBUTEROL SO4 0.083% IH SOL 2.5 MG/3 ML VIAL.NEB. NEB SCH ×4 (07:50→20:52)
[2023-05-05] MEDS: FOLIC ACID 1 MG TABLET (FP) PO SCH (09:31)
[2023-05-05] MEDS: CHOLECALCIFEROL (VIT D3) 1,000 UNIT (25 MCG) TABLET PO SCH (09:31)
[2023-05-05] MEDS: ZINC SULFATE 220 MG CAPSULE (FP) PO SCH (09:31)
[2023-05-05] MEDS: MULTIVITAMINS (DAILY MVI) TABLET (FP) PO SCH (09:31)
[2023-05-05] MEDS: CEFEPIME 1 GM in DEXTROSE 5%-WATER 100 ML IVPB SCH (09:31)
[2023-05-05] MEDS: ABACAVIR/DOLUTEGRAVIR/LAMIVUDI (TRIUMEQ) TABLET PO SCH (09:31)
[2023-05-05] MEDS: PANTOPRAZOLE SODIUM 40 MG VIAL IVPUSH SCH (09:31)
[2023-05-05] MEDS: NYSTATIN 100,000 UNIT/GM TOPICAL CREAM 15 GM TUBE TP SCH ×2 (09:35→21:46)
[2023-05-05] MEDS: COLLAGENASE CLOSTRIDIUM HIST. 30 GRAMS TUBE TP SCH (09:35)
[2023-05-05] MEDS: AMINO ACIDS/PROTEIN HYDROLYS 30 ML LIQUID.PKT PO SCH ×2 (09:35→17:33)
[2023-05-05 10:13] LABS: HEMATOCRIT 30.6 % (32.4-45.2); HEMOGLOBIN 8.9 GM/dL (10.7-15.3); MCH 26.8 pg (25.7-33.7); MEAN CELL VOLUME 92.5 fl (80-96); PLATELET COUNT 224 10^3/uL (134-434); RBC 3.31 M/mm3 (3.60-5.2); RDW 27.9 % (11.6-15.6); WHITE BLOOD COUNT 14.3 K/mm3 (4.0-10.0)
[2023-05-05 10:40] LABS: POTASSIUM 3.9 mmol/L (3.5-5.1)
[2023-05-05 10:45] LABS: CALCIUM 8.1 mg/dL (8.5-10.1)
[2023-05-05 10:46] LABS: ALBUMIN 1.8 g/dl (3.4-5.0); BLOOD UREA NITROGEN 84.4 mg/dL (7-18)
[2023-05-05 10:49] LABS: CREATININE 2.9 mg/dL (0.55-1.3); TOT PROT 6.3 g/dl (6.4-8.2)
[2023-05-05 10:50] LABS: BILIRUBIN,TOTAL 1.5 mg/dL (0.2-1)
[2023-05-05] MEDS: DEXTROSE 5%-0.45% SALINE 1,000 ML IV SCH (14:26)
[2023-05-05] MEDS: AMINO ACIDS 4.25%/D5W 1,000 ML IV SCH (15:40)
[2023-05-05 15:44] LABS: EPI CELLS >36 /uL (0-25.1); HYALINE CASTS 1 /uL (0-3.1); PH,URINE 5.5 (5.0-8.0); URINE APPEARANCE CLOUDY; URINE BILIRUBIN NEGATIVE (NEGATIVE); URINE COLOR YELLOW; URINE GLUCOSE (UA) NEGATIVE (NEGATIVE); URINE KETONE TRACE (NEGATIVE); URINE LEUK ESTERASE NEGATIVE (NEGATIVE); URINE NITRITE NEGATIVE (NEGATIVE); URINE PROTEIN 2+ (NEGATIVE); URINE UROBILINOGEN 0.2 mg/dL (0.2-1.0)
[2023-05-05 15:54] LABS: URINE BACTERIA 9 /uL (0-1359); URINE RBC 72 /uL (0-23.9); URINE WBC 76 /uL (0-25.8); YEAST many (NEGATIVE)
[2023-05-06] MEDS: methylPREDNISolone NA SUCC 40 MG/1 ML VIAL IVPUSH SCH ×2 (01:13→12:25)
[2023-05-06] MEDS: methaDONE HCL 40 MG DISPERSABLE TABLET PO SCH (06:05)
[2023-05-06] MEDS: HEPARIN NA (PORCINE) 5,000 UNITS/ML 1ML VIAL SQ SCH ×2 (06:07→06:58)
[2023-05-06] MEDS: LEVOTHYROXINE NA 125 MCG TABLET (FP) PO SCH (06:13)
[2023-05-06] MEDS: ACETAMINOPHEN 325 MG TABLET (FP) PO PRN ×2 (06:22→15:44)
[2023-05-06] MEDS: ALBUTEROL SO4 0.083% IH SOL 2.5 MG/3 ML VIAL.NEB. NEB SCH ×4 (08:20→20:52)
[2023-05-06] MEDS: BUDESONIDE 0.5 MG/2 ML INH SUSP VIAL NEB SCH ×2 (08:20→20:51)
[2023-05-06 09:40] LABS: INR 1.64 (0.83-1.09); PROTHROMBIN TIME (PATIENT) 18.9 SEC (9.7-13.0)
[2023-05-06 09:43] LABS: ACTIVATED PTT 27.1 SECONDS (25.2-36.5)
[2023-05-06 09:44] LABS: HEMATOCRIT 22.4 % (32.4-45.2); MCH 26.9 pg (25.7-33.7); MCHC 29.6 g/dl (32.0-36.0); MEAN CELL VOLUME 90.7 fl (80-96); MEAN PLT VOLUME 9.1 fl (7.5-11.1); PLATELET COUNT 195 10^3/uL (134-434); RBC 2.47 M/mm3 (3.60-5.2); RDW 27.3 % (11.6-15.6); WHITE BLOOD COUNT 20.7 K/mm3 (4.0-10.0)
[2023-05-06 09:45] LABS: CALCIUM 7.4 mg/dL (8.5-10.1)
[2023-05-06 09:46] LABS: BLOOD UREA NITROGEN 101.7 mg/dL (7-18)
[2023-05-06 09:49] LABS: CREATININE 3.4 mg/dL (0.55-1.3)
[2023-05-06 10:04] LABS: HEMOGLOBIN 6.6 GM/dL (10.7-15.3)
[2023-05-06] MEDS ORDERED: PHYTONADIONE 5 MG TABLET PO ONE (10:36)
[2023-05-06] MEDS ORDERED: methylPREDNISolone NA SUCC 40 MG/1 ML VIAL IVPUSH SCH (10:45)
[2023-05-06] MEDS: NYSTATIN 100,000 UNIT/GM TOPICAL CREAM 15 GM TUBE TP SCH ×2 (11:35→22:08)
[2023-05-06] MEDS: COLLAGENASE CLOSTRIDIUM HIST. 30 GRAMS TUBE TP SCH (11:35)
[2023-05-06] MEDS: MULTIVITAMINS (DAILY MVI) TABLET (FP) PO SCH (12:23)
[2023-05-06] MEDS: AMINO ACIDS/PROTEIN HYDROLYS 30 ML LIQUID.PKT PO SCH ×2 (12:23→18:08)
[2023-05-06] MEDS: FOLIC ACID 1 MG TABLET (FP) PO SCH (12:23)
[2023-05-06] MEDS: ZINC SULFATE 220 MG CAPSULE (FP) PO SCH (12:23)
[2023-05-06] MEDS: ABACAVIR/DOLUTEGRAVIR/LAMIVUDI (TRIUMEQ) TABLET PO SCH (12:23)
[2023-05-06] MEDS: CHOLECALCIFEROL (VIT D3) 1,000 UNIT (25 MCG) TABLET PO SCH (12:23)
[2023-05-06] MEDS: CEFEPIME 1 GM in DEXTROSE 5%-WATER 100 ML IVPB SCH (12:23)
[2023-05-06] MEDS: PANTOPRAZOLE SODIUM 40 MG VIAL IVPUSH SCH ×2 (12:24→22:09)
[2023-05-06] MEDS: AMINO ACIDS 4.25%/D5W 1,000 ML IV SCH (17:56)
[2023-05-06 21:59] LABS: HEMATOCRIT 27.1 % (32.4-45.2); MCH 26.4 pg (25.7-33.7); MCHC 29.4 g/dl (32.0-36.0); MEAN CELL VOLUME 89.9 fl (80-96); MEAN PLT VOLUME 9.4 fl (7.5-11.1); PLATELET COUNT 161 10^3/uL (134-434); RBC 3.01 M/mm3 (3.60-5.2); RDW 24.2 % (11.6-15.6); WHITE BLOOD COUNT 29.8 K/mm3 (4.0-10.0)
[2023-05-06 23:13] LABS: ANISOCYTOSIS 0; MACROCYTOSIS 0
[2023-05-07] MEDS: methaDONE HCL 40 MG DISPERSABLE TABLET PO SCH (06:04)
[2023-05-07] MEDS: LEVOTHYROXINE NA 125 MCG TABLET (FP) PO SCH (06:07)
[2023-05-07 08:10] LABS: INR 1.54 (0.83-1.09); PROTHROMBIN TIME (PATIENT) 17.8 SEC (9.7-13.0)
[2023-05-07 08:13] LABS: HEMOGLOBIN 9.7 GM/dL (10.7-15.3); MCH 27.1 pg (25.7-33.7); MCHC 31.3 g/dl (32.0-36.0); MEAN CELL VOLUME 86.5 fl (80-96); MEAN PLT VOLUME 9.8 fl (7.5-11.1); PLATELET COUNT 171 10^3/uL (134-434); RBC 3.58 M/mm3 (3.60-5.2)
[2023-05-07] MEDS: BUDESONIDE 0.5 MG/2 ML INH SUSP VIAL NEB SCH ×2 (08:27→20:13)
[2023-05-07] MEDS: ALBUTEROL SO4 0.083% IH SOL 2.5 MG/3 ML VIAL.NEB. NEB SCH ×4 (08:27→20:14)
[2023-05-07 08:28] LABS: WHITE BLOOD COUNT 34.9 K/mm3 (4.0-10.0)
[2023-05-07 08:32] LABS: CHLORIDE 102 mmol/L (98-107); POTASSIUM 4.5 mmol/L (3.5-5.1); SODIUM 139 mmol/L (136-145)
[2023-05-07 08:34] LABS: ALBUMIN 1.9 g/dl (3.4-5.0); CALCIUM 7.8 mg/dL (8.5-10.1)
[2023-05-07 08:35] LABS: ANION GAP 13 MMOL/L (8-16); CO2 24 mmol/L (21-32); GLUCOSE,RANDOM 136 mg/dL (74-106); MAGNESIUM 1.9 mg/dL (1.8-2.4)
[2023-05-07 08:37] LABS: SGPT/ALT 67 U/L (13-61)
[2023-05-07 08:38] LABS: CREATININE 4.4 mg/dL (0.55-1.3); PHOSPHOROUS 4.4 mg/dL (2.5-4.9); SGOT/AST 103 U/L (15-37)
[2023-05-07 08:39] LABS: BILIRUBIN,TOTAL 2.1 mg/dL (0.2-1)
[2023-05-07 08:42] LABS: TOT PROT 5.7 g/dl (6.4-8.2)
[2023-05-07 08:43] LABS: ALK PHOS 86 U/L (45-117)
[2023-05-07 08:47] LABS: BLOOD UREA NITROGEN 124.4 mg/dL (7-18)
[2023-05-07] MEDS: AMINO ACIDS/PROTEIN HYDROLYS 30 ML LIQUID.PKT PO SCH ×2 (09:00→17:30)
[2023-05-07 09:03] LABS: ANISOCYTOSIS 3+; MACROCYTOSIS 0; TEAR DROP CELLS 1+
[2023-05-07] MEDS: CEFEPIME 1 GM in DEXTROSE 5%-WATER 100 ML IVPB SCH (10:30)
[2023-05-07] MEDS: NYSTATIN 100,000 UNIT/GM TOPICAL CREAM 15 GM TUBE TP SCH ×2 (11:00→22:40)
[2023-05-07] MEDS: CHOLECALCIFEROL (VIT D3) 1,000 UNIT (25 MCG) TABLET PO SCH (11:00)
[2023-05-07] MEDS: MULTIVITAMINS (DAILY MVI) TABLET (FP) PO SCH (11:00)
[2023-05-07] MEDS: ZINC SULFATE 220 MG CAPSULE (FP) PO SCH (11:00)
[2023-05-07] MEDS: FOLIC ACID 1 MG TABLET (FP) PO SCH (11:00)
[2023-05-07] MEDS: ABACAVIR/DOLUTEGRAVIR/LAMIVUDI (TRIUMEQ) TABLET PO SCH (11:00)
[2023-05-07] MEDS: COLLAGENASE CLOSTRIDIUM HIST. 30 GRAMS TUBE TP SCH (12:30)
[2023-05-07] MEDS: AMINO ACIDS 4.25%/D5W 1,000 ML IV SCH (17:04)
[2023-05-07] MEDS: DOXYCYCLINE INJECTION 100 MG in DEXTROSE 5%-WATER 100 ML IVPB SCH ×2 (17:30→21:51)
[2023-05-07] MEDS: PANTOPRAZOLE SODIUM 40 MG VIAL IVPUSH SCH ×2 (17:43→21:51)
[2023-05-08] MEDS: AMINO ACIDS 4.25%/D5W 1,000 ML IV SCH ×2 (05:00→17:50)
[2023-05-08] MEDS: LEVOTHYROXINE NA 125 MCG TABLET (FP) PO SCH (06:10)
[2023-05-08] MEDS: methaDONE HCL 40 MG DISPERSABLE TABLET PO SCH (06:10)
[2023-05-08] MEDS: BUDESONIDE 0.5 MG/2 ML INH SUSP VIAL NEB SCH ×2 (08:54→20:16)
[2023-05-08] MEDS: ALBUTEROL SO4 0.083% IH SOL 2.5 MG/3 ML VIAL.NEB. NEB SCH ×4 (08:55→20:17)
[2023-05-08] MEDS: AMINO ACIDS/PROTEIN HYDROLYS 30 ML LIQUID.PKT PO SCH ×2 (10:19→18:23)
[2023-05-08] MEDS: PANTOPRAZOLE SODIUM 40 MG VIAL IVPUSH SCH (10:19)
[2023-05-08] MEDS: DOXYCYCLINE INJECTION 100 MG in DEXTROSE 5%-WATER 100 ML IVPB SCH ×2 (10:25→21:51)
[2023-05-08] MEDS: MULTIVITAMINS (DAILY MVI) TABLET (FP) PO SCH (10:30)
[2023-05-08] MEDS: FOLIC ACID 1 MG TABLET (FP) PO SCH (10:30)
[2023-05-08] MEDS: CHOLECALCIFEROL (VIT D3) 1,000 UNIT (25 MCG) TABLET PO SCH (10:31)
[2023-05-08] MEDS: ZINC SULFATE 220 MG CAPSULE (FP) PO SCH (10:31)
[2023-05-08] MEDS: ABACAVIR/DOLUTEGRAVIR/LAMIVUDI (TRIUMEQ) TABLET PO SCH (10:31)
[2023-05-08 10:37] LABS: BASO % 0.2 % (0-2.0); HEMATOCRIT 30.9 % (32.4-45.2); HEMOGLOBIN 9.5 GM/dL (10.7-15.3); LYMPH % 5.1 % (8-40); MCH 27.3 pg (25.7-33.7); MCHC 30.8 g/dl (32.0-36.0); MEAN CELL VOLUME 88.5 fl (80-96); MEAN PLT VOLUME 9.6 fl (7.5-11.1); MONO % 4.4 % (3.8-10.2); NEUT % 90.3 % (42.8-82.8); PLATELET COUNT 154 10^3/uL (134-434); RBC 3.49 M/mm3 (3.60-5.2); RDW 23.8 % (11.6-15.6)
[2023-05-08 11:04] LABS: CHLORIDE 99 mmol/L (98-107); POTASSIUM 4.4 mmol/L (3.5-5.1); SODIUM 136 mmol/L (136-145)
[2023-05-08 11:05] LABS: WHITE BLOOD COUNT 41.6 K/mm3 (4.0-10.0)
[2023-05-08 11:10] LABS: CALCIUM 8.1 mg/dL (8.5-10.1)
[2023-05-08 11:11] LABS: ALBUMIN 2.1 g/dl (3.4-5.0); ANION GAP 15 MMOL/L (8-16); CO2 22 mmol/L (21-32); GLUCOSE,RANDOM 125 mg/dL (74-106)
[2023-05-08 11:14] LABS: CREATININE 5.4 mg/dL (0.55-1.3); PHOSPHOROUS 4.2 mg/dL (2.5-4.9); SGOT/AST 37 U/L (15-37); SGPT/ALT 45 U/L (13-61)
[2023-05-08 11:15] LABS: TOT PROT 5.9 g/dl (6.4-8.2)
[2023-05-08 11:17] LABS: ALK PHOS 75 U/L (45-117)
[2023-05-08] MEDS ORDERED: ACETAMINOPHEN 1000 MG/100 ML BAG IVPB PRN ×2 (11:23→12:58)
[2023-05-08] MEDS: NYSTATIN 100,000 UNIT/GM TOPICAL CREAM 15 GM TUBE TP SCH ×2 (11:30→21:51)
[2023-05-08 11:41] LABS: BLOOD UREA NITROGEN 145.6 mg/dL (7-18)
[2023-05-08 12:17] LABS: ANISOCYTOSIS 2+; MACROCYTOSIS 0; OVALOCYTE 2+; TEAR DROP CELLS 2+
[2023-05-08] MEDS ORDERED: SODIUM CHLORIDE 1,000 ML IV SCH ×2 (13:00→13:30)
[2023-05-08] MEDS ORDERED: SODIUM CHLORIDE 0.45% 1,000 ML IV SCH (13:30)
[2023-05-08] MEDS: CEFEPIME 1 GM in DEXTROSE 5%-WATER 100 ML IVPB SCH ×2 (13:47→14:28)
[2023-05-08] MEDS: HEPARIN NA (PORCINE) 5,000 UNITS/ML 1ML VIAL SQ SCH ×2 (16:12→21:51)
[2023-05-08] MEDS: COLLAGENASE CLOSTRIDIUM HIST. 30 GRAMS TUBE TP SCH (17:50)
[2023-05-09] MEDS: AMINO ACIDS 4.25%/D5W 1,000 ML IV SCH (05:21)
[2023-05-09] MEDS: HEPARIN NA (PORCINE) 5,000 UNITS/ML 1ML VIAL SQ SCH ×3 (05:22→21:02)
[2023-05-09] MEDS: methaDONE HCL 40 MG DISPERSABLE TABLET PO SCH (05:22)
[2023-05-09] MEDS: LEVOTHYROXINE NA 125 MCG TABLET (FP) PO SCH (06:16)
[2023-05-09] MEDS: ALBUTEROL SO4 0.083% IH SOL 2.5 MG/3 ML VIAL.NEB. NEB SCH ×3 (08:48→19:49)
[2023-05-09] MEDS: BUDESONIDE 0.5 MG/2 ML INH SUSP VIAL NEB SCH ×2 (08:50→19:49)
[2023-05-09] MEDS ORDERED: THIAMINE HCL 200 MG/2 ML VIAL IVPB SCH (10:00)
[2023-05-09] MEDS: AMINO ACIDS/PROTEIN HYDROLYS 30 ML LIQUID.PKT PO SCH ×2 (10:18→17:30)
[2023-05-09] MEDS: CEFEPIME 1 GM in DEXTROSE 5%-WATER 100 ML IVPB SCH (10:19)
[2023-05-09] MEDS: ZINC SULFATE 220 MG CAPSULE (FP) PO SCH (10:22)
[2023-05-09] MEDS: CHOLECALCIFEROL (VIT D3) 1,000 UNIT (25 MCG) TABLET PO SCH (10:22)
[2023-05-09] MEDS: FOLIC ACID 1 MG TABLET (FP) PO SCH (10:22)
[2023-05-09] MEDS: MULTIVITAMINS (DAILY MVI) TABLET (FP) PO SCH (10:22)
[2023-05-09] MEDS: DOXYCYCLINE INJECTION 100 MG in DEXTROSE 5%-WATER 100 ML IVPB SCH ×2 (10:23→21:02)
[2023-05-09] MEDS: ABACAVIR/DOLUTEGRAVIR/LAMIVUDI (TRIUMEQ) TABLET PO SCH (10:23)
[2023-05-09 11:13] LABS: HEMATOCRIT 29.4 % (32.4-45.2); HEMOGLOBIN 8.9 GM/dL (10.7-15.3); MCH 27.7 pg (25.7-33.7); MCHC 30.3 g/dl (32.0-36.0); MEAN CELL VOLUME 91.3 fl (80-96); MEAN PLT VOLUME 9.7 fl (7.5-11.1); PLATELET COUNT 139 10^3/uL (134-434); RBC 3.22 M/mm3 (3.60-5.2); RDW 23.5 % (11.6-15.6)
[2023-05-09] MEDS: NYSTATIN 100,000 UNIT/GM TOPICAL CREAM 15 GM TUBE TP SCH ×2 (11:17→21:32)
[2023-05-09] MEDS: COLLAGENASE CLOSTRIDIUM HIST. 30 GRAMS TUBE TP SCH (11:17)
[2023-05-09 11:35] LABS: CHLORIDE 100 mmol/L (98-107); POTASSIUM 4.4 mmol/L (3.5-5.1); SODIUM 133 mmol/L (136-145)
[2023-05-09 11:37] LABS: ANISOCYTOSIS 2+; MACROCYTOSIS 1+; OVALOCYTE 1+
[2023-05-09 11:39] LABS: CALCIUM 7.7 mg/dL (8.5-10.1)
[2023-05-09 11:40] LABS: ALBUMIN 2.1 g/dl (3.4-5.0); ANION GAP 13 MMOL/L (8-16); CO2 20 mmol/L (21-32); GLUCOSE,RANDOM 93 mg/dL (74-106); MAGNESIUM 1.8 mg/dL (1.8-2.4)
[2023-05-09 11:42] LABS: SGPT/ALT 34 U/L (13-61)
[2023-05-09 11:43] LABS: CREATININE 5.9 mg/dL (0.55-1.3); PHOSPHOROUS 5.1 mg/dL (2.5-4.9); SGOT/AST 27 U/L (15-37)
[2023-05-09 11:44] LABS: BILIRUBIN,TOTAL 1.7 mg/dL (0.2-1); TOT PROT 5.6 g/dl (6.4-8.2)
[2023-05-09 11:45] LABS: ALK PHOS 59 U/L (45-117)
[2023-05-09] MEDS ORDERED: AMINO ACIDS 4.25%/D5W 1,000 ML IV SCH (12:00)
[2023-05-09 12:03] LABS: BLOOD UREA NITROGEN 158.7 mg/dL (7-18)
[2023-05-09] MEDS ORDERED: SODIUM CHLORIDE 250 ML IV STA (15:53)
[2023-05-09 16:55] LABS: ALLENS TEST POSITIVE; ARTERIAL BLD GAS O2 SATURATION 91.2 % (95-98); ARTERIAL BLOOD GAS BASE EXCESS -10.9 mmol/L (-2-2); ARTERIAL BLOOD GAS PO2 75.8 mmHg (80-100)
[2023-05-09 16:58] LABS: ARTERIAL BLOOD GAS pH 7.165 (7.350-7.450)
[2023-05-09] MEDS ORDERED: ZOLPIDEM TARTRATE 5 MG TABLET PO PRN (18:09)
[2023-05-09] MEDS ORDERED: LORATADINE 10 MG TABLET PO PRN (18:09)
[2023-05-09] MEDS ORDERED: ACETAMINOPHEN 1000 MG/100 ML BAG IVPB ONE (18:17)
[2023-05-09 18:28] LABS: EPI CELLS >36 /uL (0-25.1); HYALINE CASTS 6 /uL (0-3.1); PH,URINE 5.5 (5.0-8.0); URINE APPEARANCE TURBID; URINE BACTERIA 3369 /uL (0-1359); URINE BILIRUBIN NEGATIVE (NEGATIVE); URINE COLOR YELLOW; URINE GLUCOSE (UA) NEGATIVE (NEGATIVE); URINE KETONE NEGATIVE (NEGATIVE); URINE LEUK ESTERASE 1+ (NEGATIVE); URINE NITRITE NEGATIVE (NEGATIVE); URINE PROTEIN 3+ (NEGATIVE); URINE UROBILINOGEN 0.2 mg/dL (0.2-1.0); URINE WBC 1415 /uL (0-25.8)
[2023-05-09] MEDS ORDERED: ACETAMINOPHEN INJECTION 100 ML IVPB ONE (18:38)
[2023-05-09] MEDS ORDERED: VANCOMYCIN/WATER FOR INJ (PEG) 1,000 MG/200 ML BAG IVPB ONE (18:51)
[2023-05-09 19:50] LABS: URINE RBC 332 /uL (0-23.9); YEAST PRESENT (NEGATIVE)
[2023-05-09] MEDS: CHLORHEXIDINE GLUCONATE 4% CLEANSER FOR DECOLONIZATION TP SCH (21:03)
[2023-05-09] MEDS: MUPIROCIN 2% TOPICAL OINTMENT FOR DECOLONIZATION NS SCH (21:32)
[2023-05-09] MEDS ORDERED: MUPIROCIN 2% TOPICAL OINTMENT FOR DECOLONIZATION NS SCH ×2 (22:00)
[2023-05-09] MEDS ORDERED: METOPROLOL TARTRATE 25 MG TABLET (FP) PO SCH (22:00)
[2023-05-09] MEDS ORDERED: CHLORHEXIDINE GLUCONATE 4% CLEANSER FOR DECOLONIZATION TP SCH ×2 (22:00)
[2023-05-10] MEDS: HEPARIN NA (PORCINE) 5,000 UNITS/ML 1ML VIAL SQ SCH ×3 (05:58→21:58)
[2023-05-10] MEDS ORDERED: methaDONE HCL 40 MG DISPERSABLE TABLET PO SCH (06:00)
[2023-05-10] MEDS: LEVOTHYROXINE NA 125 MCG TABLET (FP) PO SCH (06:03)
[2023-05-10 06:47] LABS: HEMATOCRIT 29.1 % (32.4-45.2); HEMOGLOBIN 8.9 GM/dL (10.7-15.3); MCH 28.3 pg (25.7-33.7); MCHC 30.5 g/dl (32.0-36.0); MEAN CELL VOLUME 92.6 fl (80-96); MEAN PLT VOLUME 9.9 fl (7.5-11.1); PLATELET COUNT 150 10^3/uL (134-434); RBC 3.14 M/mm3 (3.60-5.2); RDW 23.6 % (11.6-15.6); WHITE BLOOD COUNT 23.9 K/mm3 (4.0-10.0)
[2023-05-10 07:14] LABS: CHLORIDE 96 mmol/L (98-107); POTASSIUM 4.5 mmol/L (3.5-5.1); SODIUM 130 mmol/L (136-145)
[2023-05-10 07:16] LABS: ALBUMIN 2.1 g/dl (3.4-5.0); ANION GAP 16 MMOL/L (8-16); CALCIUM 7.9 mg/dL (8.5-10.1); CO2 19 mmol/L (21-32); GLUCOSE,RANDOM 128 mg/dL (74-106); MAGNESIUM 1.7 mg/dL (1.8-2.4)
[2023-05-10 07:19] LABS: CREATININE 6.4 mg/dL (0.55-1.3); PHOSPHOROUS 6.3 mg/dL (2.5-4.9); SGPT/ALT 27 U/L (13-61)
[2023-05-10 07:20] LABS: SGOT/AST 24 U/L (15-37)
[2023-05-10 07:21] LABS: BILIRUBIN,TOTAL 1.6 mg/dL (0.2-1); TOT PROT 5.7 g/dl (6.4-8.2)
[2023-05-10 07:22] LABS: ALK PHOS 55 U/L (45-117)
[2023-05-10 08:07] LABS: BLOOD UREA NITROGEN 167.9 mg/dL (7-18)
[2023-05-10] MEDS ORDERED: NOREPINEPHRINE BITARTRATE/D5W 8 MG/250 ML BAG IVPB SCH (08:15)
[2023-05-10] MEDS: BUDESONIDE 0.5 MG/2 ML INH SUSP VIAL NEB SCH ×2 (08:33→20:25)
[2023-05-10] MEDS: ALBUTEROL SO4 0.083% IH SOL 2.5 MG/3 ML VIAL.NEB. NEB SCH ×5 (08:33→20:26)
[2023-05-10 08:41] LABS: ANISOCYTOSIS 2+; MACROCYTOSIS 0
[2023-05-10] MEDS: AMINO ACIDS/PROTEIN HYDROLYS 30 ML LIQUID.PKT PO SCH ×2 (08:49→17:04)
[2023-05-10] MEDS ORDERED: MAGNESIUM SULF 50% (8.12 MEQ/2 ML-1 GM VIAL) IVPB ONE (09:00)
[2023-05-10] MEDS: ZINC SULFATE 220 MG CAPSULE (FP) PO SCH (09:59)
[2023-05-10] MEDS: FOLIC ACID 1 MG TABLET (FP) PO SCH (09:59)
[2023-05-10] MEDS: CHOLECALCIFEROL (VIT D3) 1,000 UNIT (25 MCG) TABLET PO SCH (09:59)
[2023-05-10] MEDS: ABACAVIR/DOLUTEGRAVIR/LAMIVUDI (TRIUMEQ) TABLET PO SCH (09:59)
[2023-05-10] MEDS: MULTIVITAMINS (DAILY MVI) TABLET (FP) PO SCH (09:59)
[2023-05-10] MEDS: methaDONE HCL 40 MG DISPERSABLE TABLET PO SCH (09:59)
[2023-05-10] MEDS ORDERED: CEFEPIME 1 GM in DEXTROSE 5%-WATER 100 ML IVPB SCH (10:00)
[2023-05-10] MEDS: NYSTATIN 100,000 UNIT/GM TOPICAL CREAM 15 GM TUBE TP SCH ×2 (10:10→21:58)
[2023-05-10] MEDS: PANTOPRAZOLE SODIUM 40 MG VIAL IVPUSH SCH (10:10)
[2023-05-10] MEDS: THIAMINE HCL 200 MG/2 ML VIAL IVPB SCH (10:10)
[2023-05-10] MEDS: DOXYCYCLINE INJECTION 100 MG in DEXTROSE 5%-WATER 100 ML IVPB SCH ×2 (10:10→21:58)
[2023-05-10] MEDS: MUPIROCIN 2% TOPICAL OINTMENT FOR DECOLONIZATION NS SCH ×2 (10:10→21:58)
[2023-05-10] MEDS: COLLAGENASE CLOSTRIDIUM HIST. 30 GRAMS TUBE TP SCH (10:11)
[2023-05-10] MEDS ORDERED: AMINO ACIDS 4.25%/D5W 1,000 ML IV SCH (12:00)
[2023-05-10 12:53] LABS: ARTERIAL BLOOD GAS BASE EXCESS -15.5 mmol/L (-2-2); ARTERIAL BLOOD GAS PO2 155.8 mmHg (80-100)
[2023-05-10 12:54] LABS: VENT MODE AC; VENT RATE 12
[2023-05-10 12:57] LABS: ARTERIAL BLOOD GAS pH 7.034 (7.350-7.450)
[2023-05-10] MEDS ORDERED: SODIUM CHLORIDE 250 ML IV PRN (15:18)
[2023-05-10] MEDS ORDERED: NOREPINEPHRINE BITARTRATE 4,000 MCG in DEXTROSE 5%-WATER - 496 ML IV SCH (15:30)
[2023-05-10 16:08] LABS: ATYPICAL pANCA <1:20 titer (Neg:<1:20); C-ANCA <1:20 titer (Neg:<1:20)
[2023-05-10] MEDS: NOREPINEPHRINE BITARTRATE/D5W 8 MG/250 ML BAG IVPB SCH (16:30)
[2023-05-10] MEDS ORDERED: VASOPRESSIN 20 UNITS/ML VIAL IV ONE (17:19)
[2023-05-10] MEDS ORDERED: VASOPRESSIN 40 UNITS/100 ML BAG IV SCH (17:30)
[2023-05-10 18:35] LABS: ARTERIAL BLD GAS O2 SATURATION 95.2 % (95-98); ARTERIAL BLOOD GAS BASE EXCESS -7.3 mmol/L (-2-2); ARTERIAL BLOOD GAS PO2 93.6 mmHg (80-100)
[2023-05-10 18:46] LABS: ARTERIAL BLOOD GAS pH 7.187 (7.350-7.450)
[2023-05-10 21:07] LABS: ANTIGLOMERULAR BASEMENT MEN.AB <0.2 units (0.0-0.9)
[2023-05-10] MEDS: CHLORHEXIDINE GLUCONATE 4% CLEANSER FOR DECOLONIZATION TP SCH (21:58)
[2023-05-11 06:37] LABS: ARTERIAL BLD GAS O2 SATURATION 69.3 % (95-98); ARTERIAL BLOOD GAS PO2 52.7 mmHg (80-100)
[2023-05-11] MEDS: LEVOTHYROXINE NA 125 MCG TABLET (FP) PO SCH (06:39)
[2023-05-11] MEDS: methaDONE HCL 40 MG DISPERSABLE TABLET PO SCH (06:39)
[2023-05-11 06:51] LABS: ALLENS TEST POSITIVE; VENT MODE A/C
[2023-05-11 06:52] LABS: VENT RATE 12
[2023-05-11 07:03] LABS: HEMATOCRIT 27.9 % (32.4-45.2); HEMOGLOBIN 8.2 GM/dL (10.7-15.3); MCH 27.7 pg (25.7-33.7); MCHC 29.4 g/dl (32.0-36.0); MEAN CELL VOLUME 94.1 fl (80-96); MEAN PLT VOLUME 9.8 fl (7.5-11.1); PLATELET COUNT 152 10^3/uL (134-434); RBC 2.97 M/mm3 (3.60-5.2); RDW 23.8 % (11.6-15.6)
[2023-05-11] MEDS: HEPARIN NA (PORCINE) 5,000 UNITS/ML 1ML VIAL SQ SCH ×3 (07:07→21:25)
[2023-05-11] MEDS ORDERED: MIDAZOLAM HCL 2 MG/2 ML SINGLE DOSE VIAL IVPUSH STA (07:14)
[2023-05-11] MEDS ORDERED: SODIUM BICARBONATE 8.4% 50 MEQ/50 ML DISP.SYRIN IVPUSH ONE ×2 (07:15→12:24)
[2023-05-11 07:21] LABS: CHLORIDE 99 mmol/L (98-107); POTASSIUM 4.8 mmol/L (3.5-5.1); SODIUM 133 mmol/L (136-145)
[2023-05-11 07:34] LABS: ALBUMIN 2.4 g/dl (3.4-5.0); ANION GAP 15 MMOL/L (8-16); BILIRUBIN,TOTAL 1.8 mg/dL (0.2-1); CALCIUM 8.3 mg/dL (8.5-10.1); CO2 19 mmol/L (21-32); CREATININE 6.2 mg/dL (0.55-1.3); GLUCOSE,RANDOM 62 mg/dL (74-106); MAGNESIUM 2.3 mg/dL (1.8-2.4); SGOT/AST 22 U/L (15-37); SGPT/ALT 27 U/L (13-61)
[2023-05-11 07:35] LABS: ALK PHOS 57 U/L (45-117)
[2023-05-11] MEDS ORDERED: SODIUM CHLORIDE 250 ML IV PRN (07:51)
[2023-05-11 07:53] LABS: BLOOD UREA NITROGEN 145.8 mg/dL (7-18)
[2023-05-11] MEDS ORDERED: ALBUMIN HUMAN 25% 12.5 GM/50 ML VIAL IVPB SCH (08:00)
[2023-05-11] MEDS: BUDESONIDE 0.5 MG/2 ML INH SUSP VIAL NEB SCH ×2 (08:26→20:27)
[2023-05-11] MEDS ORDERED: VASOPRESSIN 20 UNITS/ML VIAL IV ONE (08:27)
[2023-05-11] MEDS: ALBUTEROL SO4 0.083% IH SOL 2.5 MG/3 ML VIAL.NEB. NEB SCH ×4 (08:27→20:27)
[2023-05-11] MEDS: AMINO ACIDS/PROTEIN HYDROLYS 30 ML LIQUID.PKT PO SCH ×2 (08:58→17:06)
[2023-05-11 09:11] LABS: ANISOCYTOSIS 1+; MACROCYTOSIS 1+
[2023-05-11] MEDS ORDERED: DEXTROSE 50%-WATER 25 GM/50 ML DISP.SYRIN IVPUSH ONE (09:15)
[2023-05-11] MEDS: FOLIC ACID 1 MG TABLET (FP) PO SCH (09:26)
[2023-05-11] MEDS: CHOLECALCIFEROL (VIT D3) 1,000 UNIT (25 MCG) TABLET PO SCH (09:27)
[2023-05-11] MEDS: MULTIVITAMINS (DAILY MVI) TABLET (FP) PO SCH (09:27)
[2023-05-11] MEDS: ABACAVIR/DOLUTEGRAVIR/LAMIVUDI (TRIUMEQ) TABLET PO SCH (09:27)
[2023-05-11] MEDS: ZINC SULFATE 220 MG CAPSULE (FP) PO SCH (09:27)
[2023-05-11] MEDS: THIAMINE HCL 200 MG/2 ML VIAL IVPB SCH (09:42)
[2023-05-11] MEDS: PANTOPRAZOLE SODIUM 40 MG VIAL IVPUSH SCH (09:42)
[2023-05-11] MEDS: DOXYCYCLINE INJECTION 100 MG in DEXTROSE 5%-WATER 100 ML IVPB SCH ×2 (09:42→21:25)
[2023-05-11] MEDS: MUPIROCIN 2% TOPICAL OINTMENT FOR DECOLONIZATION NS SCH ×2 (09:42→21:26)
[2023-05-11] MEDS: NYSTATIN 100,000 UNIT/GM TOPICAL CREAM 15 GM TUBE TP SCH ×2 (09:42→21:26)
[2023-05-11] MEDS: COLLAGENASE CLOSTRIDIUM HIST. 30 GRAMS TUBE TP SCH (09:42)
[2023-05-11] MEDS: VASOPRESSIN 40 UNITS/100 ML BAG IV SCH (10:00)
[2023-05-11] MEDS ORDERED: VASOPRESSIN 40 UNITS/100 ML BAG IV SCH (10:45)
[2023-05-11] MEDS: DEXMEDETOMIDINE PREMIX 400 MCG/100 ML BAG IVPB SCH (10:59)
[2023-05-11] MEDS ORDERED: PANTOPRAZOLE SODIUM 40 MG VIAL IVPUSH SCH (11:00)
[2023-05-11] MEDS ORDERED: HYDROCORTISONE SOD SUCCINATE 100 MG/2 ML VIAL IVPUSH ONE (11:25)
[2023-05-11] MEDS: SODIUM BICARBONATE 8.4% - 150 MEQ in DEXTROSE 5%-WATER - 950 ML IVPB SCH ×2 (12:35→18:36)
[2023-05-11] MEDS ORDERED: MEROPENEM 1 GM in DEXTROSE 5%-WATER 100 ML IVPB ONE (13:20)
[2023-05-11 13:49] LABS: ALLENS TEST POSITIVE
[2023-05-11 13:50] LABS: ARTERIAL BLOOD GAS pH > 7.698 (7.350-7.450); VENT MODE A/C; VENT RATE 20
[2023-05-11 13:51] LABS: ARTERIAL BLOOD GAS PO2 27.7 mmHg (80-100)
[2023-05-11] MEDS: FLUDROCORTISONE ACETATE 0.1 MG TABLET (FP) PO SCH (14:17)
[2023-05-11 14:48] LABS: ARTERIAL BLD GAS O2 SATURATION 95.7 % (95-98); ARTERIAL BLOOD GAS BASE EXCESS -12.4 mmol/L (-2-2); ARTERIAL BLOOD GAS PO2 96.6 mmHg (80-100)
[2023-05-11 14:49] LABS: ALLENS TEST POSITIVE
[2023-05-11 14:50] LABS: ARTERIAL BLOOD GAS pH 7.188 (7.350-7.450); VENT MODE A/C; VENT RATE 20
[2023-05-11] MEDS ORDERED: MIDAZOLAM HCL 2 MG/2 ML SINGLE DOSE VIAL IVPUSH ONE (16:21)
[2023-05-11] MEDS ORDERED: MIDAZOLAM IN 0.9 % SOD.CHLORID 100 MG/100 ML PLAST..BAG IVPB SCH (16:30)
[2023-05-11] MEDS: SODIUM BICARBONATE 8.4% 50 MEQ/50 ML DISP.SYRIN IVPUSH SCH ×2 (17:06→21:25)
[2023-05-11] MEDS: HYDROCORTISONE SOD SUCCINATE 100 MG/2 ML VIAL IVPUSH SCH ×2 (17:07→23:05)
[2023-05-11] MEDS: NOREPINEPHRINE BITARTRATE/D5W 8 MG/250 ML BAG IVPB SCH (18:06)
[2023-05-11] MEDS: CHLORHEXIDINE GLUCONATE 4% CLEANSER FOR DECOLONIZATION TP SCH (21:26)
[2023-05-12] MEDS: SODIUM BICARBONATE 8.4% - 150 MEQ in DEXTROSE 5%-WATER - 950 ML IVPB SCH ×4 (00:14→19:21)
[2023-05-12] MEDS: VASOPRESSIN 40 UNITS/100 ML BAG IV SCH ×2 (00:15→18:00)
[2023-05-12] MEDS: NOREPINEPHRINE BITARTRATE/D5W 8 MG/250 ML BAG IVPB SCH ×2 (00:16→18:36)
[2023-05-12] MEDS: DEXMEDETOMIDINE PREMIX 400 MCG/100 ML BAG IVPB SCH (02:00)
[2023-05-12] MEDS: SODIUM BICARBONATE 8.4% 50 MEQ/50 ML DISP.SYRIN IVPUSH SCH ×3 (04:55→17:59)
[2023-05-12] MEDS: methaDONE HCL 40 MG DISPERSABLE TABLET PO SCH (05:22)
[2023-05-12] MEDS: HYDROCORTISONE SOD SUCCINATE 100 MG/2 ML VIAL IVPUSH SCH ×3 (05:22→18:03)
[2023-05-12] MEDS: HEPARIN NA (PORCINE) 5,000 UNITS/ML 1ML VIAL SQ SCH (05:23)
[2023-05-12] MEDS: LEVOTHYROXINE NA 125 MCG TABLET (FP) PO SCH (06:01)
[2023-05-12 07:08] LABS: HEMATOCRIT 25.2 % (32.4-45.2); HEMOGLOBIN 7.7 GM/dL (10.7-15.3); MCHC 30.6 g/dl (32.0-36.0); MEAN CELL VOLUME 91.8 fl (80-96); MEAN PLT VOLUME 8.5 fl (7.5-11.1); PLATELET COUNT 39 10^3/uL (134-434); RBC 2.74 M/mm3 (3.60-5.2); RDW 24.9 % (11.6-15.6)
[2023-05-12 07:13] LABS: CHLORIDE 92 mmol/L (98-107); POTASSIUM 4.3 mmol/L (3.5-5.1); SODIUM 136 mmol/L (136-145)
[2023-05-12 07:15] LABS: CALCIUM 7.2 mg/dL (8.5-10.1); GLUCOSE,RANDOM 230 mg/dL (74-106)
[2023-05-12 07:16] LABS: ANION GAP 18 MMOL/L (8-16); CO2 26 mmol/L (21-32); MAGNESIUM 2.1 mg/dL (1.8-2.4)
[2023-05-12 07:18] LABS: PHOSPHOROUS 7.8 mg/dL (2.5-4.9); SGPT/ALT 37 U/L (13-61)
[2023-05-12 07:19] LABS: CREATININE 6.3 mg/dL (0.55-1.3)
[2023-05-12 07:20] LABS: TOT PROT 4.8 g/dl (6.4-8.2)
[2023-05-12 07:21] LABS: ALK PHOS 55 U/L (45-117)
[2023-05-12 07:22] LABS: BLOOD UREA NITROGEN 140.9 mg/dL (7-18); SGOT/AST 86 U/L (15-37)
[2023-05-12] MEDS ORDERED: CALCIUM GLUCONATE 10% - 1,000 MG/10 ML VIAL IVPUSH ONE (08:18)
[2023-05-12] MEDS: ALBUTEROL SO4 0.083% IH SOL 2.5 MG/3 ML VIAL.NEB. NEB SCH ×4 (08:35→21:17)
[2023-05-12] MEDS: BUDESONIDE 0.5 MG/2 ML INH SUSP VIAL NEB SCH ×2 (08:35→21:17)
[2023-05-12] MEDS: AMINO ACIDS/PROTEIN HYDROLYS 30 ML LIQUID.PKT PO SCH ×2 (08:45→18:03)
[2023-05-12] MEDS ORDERED: MEROPENEM 500 MG in DEXTROSE 5%-WATER 100 ML IVPB SCH (09:00)
[2023-05-12] MEDS: CHOLECALCIFEROL (VIT D3) 1,000 UNIT (25 MCG) TABLET PO SCH (09:07)
[2023-05-12] MEDS: ZINC SULFATE 220 MG CAPSULE (FP) PO SCH (09:07)
[2023-05-12] MEDS: FOLIC ACID 1 MG TABLET (FP) PO SCH (09:08)
[2023-05-12] MEDS: NYSTATIN 100,000 UNIT/GM TOPICAL CREAM 15 GM TUBE TP SCH (09:08)
[2023-05-12] MEDS: FLUDROCORTISONE ACETATE 0.1 MG TABLET (FP) PO SCH (09:08)
[2023-05-12] MEDS: MULTIVITAMINS (DAILY MVI) TABLET (FP) PO SCH (09:08)
[2023-05-12] MEDS: DOXYCYCLINE INJECTION 100 MG in DEXTROSE 5%-WATER 100 ML IVPB SCH (09:09)
[2023-05-12] MEDS: ABACAVIR/DOLUTEGRAVIR/LAMIVUDI (TRIUMEQ) TABLET PO SCH (09:09)
[2023-05-12] MEDS: COLLAGENASE CLOSTRIDIUM HIST. 30 GRAMS TUBE TP SCH (09:24)
[2023-05-12] MEDS: MUPIROCIN 2% TOPICAL OINTMENT FOR DECOLONIZATION NS SCH (09:25)
[2023-05-12 09:39] LABS: ANISOCYTOSIS 2+; CORRECTED WBC 27.87 K/mm3; MACROCYTOSIS 1+; TARGET CELLS 2+; TEAR DROP CELLS 2+
[2023-05-12] MEDS ORDERED: PANTOPRAZOLE SODIUM 40 MG VIAL IVPUSH SCH (10:00)
[2023-05-12] MEDS ORDERED: DEXMEDETOMIDINE PREMIX 400 MCG/100 ML BAG IVPB SCH ×2 (10:10→13:30)
[2023-05-12] MEDS ORDERED: SODIUM CHLORIDE 250 ML IV PRN (10:33)
[2023-05-12] MEDS: ALBUMIN HUMAN 25% 12.5 GM/50 ML VIAL IV SCH ×4 (12:10→13:40)
[2023-05-12] MEDS ORDERED: CALCIUM GLUCONATE 10% - 1,000 MG/10 ML VIAL ONE (16:16)
[2023-05-12] MEDS ORDERED: PHENYLEPHRINE HCL 10 MG/1 ML SINGLE DOSE VIAL ONE ×2 (17:04→17:05)
[2023-05-12] MEDS ORDERED: PHENYLEPHRINE NS PREMIX 50,000 MCG/500 ML BAG CVP SCH (17:15)
[2023-05-12 17:44] LABS: ARTERIAL BLD GAS O2 SATURATION 35.8 % (95-98); ARTERIAL BLOOD GAS BASE EXCESS -16.2 mmol/L (-2-2)
[2023-05-12 17:46] LABS: ARTERIAL BLOOD GAS pH 6.897 (7.350-7.450)
[2023-05-12 17:47] LABS: ARTERIAL BLOOD GAS PO2 35.4 mmHg (80-100)
[2023-05-12 17:48] LABS: BASO % 0.1 % (0-2.0); EOS % 0.1 % (0-4.5); HEMOGLOBIN 7.2 GM/dL (10.7-15.3); LYMPH % 7.6 % (8-40); MCH 27.9 pg (25.7-33.7); MEAN CELL VOLUME 96.2 fl (80-96); MEAN PLT VOLUME 7.3 fl (7.5-11.1); MONO % 4.4 % (3.8-10.2); NEUT % 87.8 % (42.8-82.8); RDW 25.7 % (11.6-15.6)
[2023-05-12 17:55] LABS: PLATELET COUNT 25 10^3/uL (134-434); WHITE BLOOD COUNT 34.6 K/mm3 (4.0-10.0)
[2023-05-12 18:11] LABS: POTASSIUM 4.4 mmol/L (3.5-5.1)
[2023-05-12 18:14] LABS: CALCIUM 7.9 mg/dL (8.5-10.1); MAGNESIUM 2.2 mg/dL (1.8-2.4)
[2023-05-12 18:17] LABS: CREATININE 4.7 mg/dL (0.55-1.3)
[2023-05-12 18:19] LABS: BILIRUBIN,TOTAL 3.7 mg/dL (0.2-1); TOT PROT 4.7 g/dl (6.4-8.2)
[2023-05-12 18:27] LABS: ALBUMIN 2.4 g/dl (3.4-5.0); ANISOCYTOSIS 3+; BLOOD UREA NITROGEN 87.3 mg/dL (7-18); LACTIC ACID 16.9 mmol/L (0.4-2.0); MACROCYTOSIS 0; TARGET CELLS 1+; TEAR DROP CELLS 1+
[2023-05-12 18:28] LABS: CORRECTED WBC 35.17 K/mm3
[2023-05-12 19:10] VITALS: TEMP 97
[2023-05-12 19:33] VITALS: BP 83/55; PULSE 95; RESP 32
[2023-05-13] MEDS ORDERED: FLUDROCORTISONE ACETATE 0.1 MG TABLET (FP) PO SCH (06:00)
== END 2023-05-12 20:22 | disposition expired | DRG 871 ==
LOC: JER 13:28 → JERBED 17:51 → J4W 04-23 01:14 → J5S 04-28 22:35 → JICU 05-09 18:19
PROVIDERS: ADMIT Internal Medicine; ATTEND Internal Medicine
PROC: 30233N1 Transfusion of Nonautologous Red Blood Cells into Peripheral Vein, Percutaneous Approach (ICD-10-PCS; principal; 2023-05-06)
PROC: 05HM33Z Insertion of Infusion Device into Right Internal Jugular Vein, Percutaneous Approach (ICD-10-PCS; 2023-05-10)
PROC: B543ZZA Ultrasonography of Right Jugular Veins, Guidance (ICD-10-PCS; 2023-05-10)
PROC: 5A1D70Z Performance of Urinary Filtration, Intermittent, Less than 6 Hours Per Day (ICD-10-PCS; 2023-05-10)
PROC: 5A1945Z Respiratory Ventilation, 24-96 Consecutive Hours (ICD-10-PCS; 2023-05-10)
PROC: 4A133B1 Monitoring of Arterial Pressure, Peripheral, Percutaneous Approach (ICD-10-PCS; 2023-05-12)
PROC: 4A133J1 Monitoring of Arterial Pulse, Peripheral, Percutaneous Approach (ICD-10-PCS; 2023-05-12)
PROC: 5A12012 Performance of Cardiac Output, Single, Manual (ICD-10-PCS; 2023-05-12)
PROC: 5A1D70Z Performance of Urinary Filtration, Intermittent, Less than 6 Hours Per Day (ICD-10-PCS; 2023-05-12)
DX: A41.89 Other specified sepsis (principal); I50.33 Acute on chronic diastolic (congestive) heart failure; L89.153 Pressure ulcer of sacral region, stage 3; J18.9 Pneumonia, unspecified organism; R65.21 Severe sepsis with septic shock; J96.20 Acute and chronic respiratory failure, unspecified whether with hypoxia or hypercapnia; J96.21 Acute and chronic respiratory failure with hypoxia; E87.20 Acidosis, unspecified; J95.09 Other tracheostomy complication; N17.9 Acute kidney failure, unspecified; F11.20 Opioid dependence, uncomplicated; I13.0 Hypertensive heart and chronic kidney disease with heart failure and stage 1 through stage 4 chronic kidney disease, or unspecified chronic kidney disease; E87.0 Hyperosmolality and hypernatremia; K92.2 Gastrointestinal hemorrhage, unspecified; J44.1 Chronic obstructive pulmonary disease with (acute) exacerbation; J44.0 Chronic obstructive pulmonary disease with (acute) lower respiratory infection; N39.0 Urinary tract infection, site not specified; N18.9 Chronic kidney disease, unspecified; D64.9 Anemia, unspecified; J84.89 Other specified interstitial pulmonary diseases; E03.9 Hypothyroidism, unspecified; R91.1 Solitary pulmonary nodule; K59.00 Constipation, unspecified; E78.5 Hyperlipidemia, unspecified; T17.390A Other foreign object in larynx causing asphyxiation, initial encounter; I27.81 Cor pulmonale (chronic); R50.9 Fever, unspecified; R62.7 Adult failure to thrive; Z68.33 Body mass index [BMI] 33.0-33.9, adult; I46.9 Cardiac arrest, cause unspecified; I95.89 Other hypotension; I27.20 Pulmonary hypertension, unspecified; B96.29 Other Escherichia coli [E. coli] as the cause of diseases classified elsewhere; B95.61 Methicillin susceptible Staphylococcus aureus infection as the cause of diseases classified elsewhere; Z85.21 Personal history of malignant neoplasm of larynx; Z88.0 Allergy status to penicillin; Z21 Asymptomatic human immunodeficiency virus [HIV] infection status
CPT/HCPCS: 0241U-QW; 36415; 36430; 36600; 71045-TC-FY; 74176-TC; 80048; 80053; 81003; 82248; 82272; 82436; 82550; 82553; 82570; 82803; 82962; 83516; 83520; 83605; 83735; 83880; 83935; 84100; 84133; 84155; 84165; 84300; 84484; 84540; 85025; 85027; 85610; 85651; 85730; 86038; 86140; 86160; 86256; 86359; 86360; 86803; 86850; 86900; 86901; 86922; 87040; 87070; 87086; 87186; 87205; 87340; 87635; 87804; 93005; 93010; 93306-TC; 93971; 93971-TC; 94002; 94640; 97162-GP; 99285-25; G0480; J1644; J3490; P9047; P9058